=== PATIENT | female | born 2000 | race Caucasian/White ===

== ENCOUNTER 2022-11-07 15:08 | Outpatient (OUT) | payer BC, SELFPAY ==
[2022-11-08 05:11] LABS: Progesterone 16.2 ng/mL (.)
== END 2022-11-07 15:09 | disposition home or self-care (01) ==
LOC: LAB 15:08
PROVIDERS: PCP Family Medicine; Visit Provider Obstetrics & Gynecology
DX: N97.9 Female infertility, unspecified (principal)
CPT/HCPCS: 36415; 84144

== ENCOUNTER 2022-12-08 20:58 | Outpatient (REF) | payer BC, SELFPAY ==
[2022-12-12 14:09] LABS: Age Gdln ACOG Testing Note (.); IGP, rfx Aptima HPV ASCU Note (.)
== END 2022-12-08 20:59 | disposition home or self-care (01) ==
LOC: LAB 20:58
PROVIDERS: PCP Family Medicine; Visit Provider Physician Assistant
DX: N97.9 Female infertility, unspecified (principal)
CPT/HCPCS: G0145

== ENCOUNTER 2022-12-20 08:05 | Outpatient (OUT) | payer BC, SELFPAY ==
[2022-12-20 08:28] LABS: Basophils Absolute Auto 0.1 10^3/uL (0.0-0.1); Eosinophils Absolute Auto 0.2 10^3/uL (0.0-0.7); Eosinophils Percent Auto 3.9 % (0.9-7.0); Hematocrit 39.7 % (36.0-48.0); Hemoglobin 13.2 g/dL (12.0-16.0); Lymphocytes Absolute Auto 1.7 10^3/uL (1.2-3.8); Lymphocytes Percent Auto 35.6 % (20.5-60.0); Mean Corpuscular HGB Conc 33.2 g/dL (29.9-35.2); Mean Corpuscular Hemoglobin 31.6 pg (26.7-34.0); Mean Platelet Volume 9.6 fL (9.5-13.5); Monocytes Absolute Auto 0.4 10^3/uL (0.3-0.8); Monocytes Percent Auto 8.8 % (1.7-12.0); Neutrophils Absolute Auto 2.5 10^3/uL (1.4-6.5); Neutrophils Percent Auto 50.7 % (43.0-75.0); Platelet Count 268 10^3/uL (150-450); Red Blood Count 4.18 10^6/uL (4.20-5.40); Red Cell Distribution Width 12.6 % (11.0-15.0); White Blood Count 4.9 10^3/uL (4.0-11.0)
[2022-12-20 09:06] LABS: Alanine Aminotransferase 17 U/L (14-59); Albumin Globulin Ratio 1.2; Albumin Level 3.8 g/dL (3.4-5.0); Alkaline Phosphatase 75 U/L (46-116); Anion Gap 12.5; Aspartate Amino Transferase 11 U/L (15-37); BUN Creatinine Ratio 17.9; Bilirubin Total 0.4 mg/dL (0.2-1.0); Calcium 8.5 mg/dL (8.5-10.1); Carbon Dioxide 27.1 mmol/L (21.0-32.0); Chloride 104 mmol/L (98-107); Estimated GFR (African America >60 (>=60); Estimated GFR (Non-African Ame >60 (>=60); Free T3 2.31 pg/mL (2.18-3.98); Globulin 3.3 g/dL; Glucose 81 mg/dL (74-106); Potassium 3.6 mmol/L (3.5-5.1); Sodium 140 mmol/L (136-145); Thyroid Stimulating Hormone 2.023 uIU/mL (0.358-3.740); Total Protein 7.1 g/dL (6.4-8.2)
[2022-12-20 09:27] LABS: Estimated Average Glucose 80 mg/dL; Glycohemoglobin A1C 4.4 % (4.5-6.2)
[2022-12-22 11:07] LABS: Insulin 8.5 uIU/mL (2.6-24.9)
== END 2022-12-20 08:06 | disposition home or self-care (01) ==
LOC: LAB 08:16
PROVIDERS: PCP Family Medicine; Visit Provider Family Medicine
DX: L65.9 Nonscarring hair loss, unspecified (principal); R73.09 Other abnormal glucose; D64.9 Anemia, unspecified; E55.9 Vitamin D deficiency, unspecified
CPT/HCPCS: 36415; 80053; 82306; 83036; 83525; 83540; 84436; 84443; 84481; 85025

== ENCOUNTER 2023-02-26 13:48 | Outpatient (OUT) | payer BC, SELFPAY ==
[2023-02-27 12:09] LABS: Progesterone 11.9 ng/mL (.)
== END 2023-02-26 13:49 | disposition home or self-care (01) ==
LOC: LAB 13:48
PROVIDERS: PCP Family Medicine; Visit Provider Obstetrics & Gynecology
DX: N97.9 Female infertility, unspecified (principal)
CPT/HCPCS: 36415; 84144

== ENCOUNTER 2023-04-15 14:02 | Outpatient (OUT) | payer BC, SELFPAY ==
--- OUTSIDE RECORDS SUMMARY | 2023-04-15 14:06 | XMS_ITS | CCD ---
Author Name Unknown Address [address] [place] [address] Organization [facility] Care Team Providers Care [employer] Consultant Name Role Phone JASON ., DR BLACKWELL Admitting Unavailable JASON ., DR BLACKWELL Attending Unavailable HOY ., DR HAY Primary Care Unavailable JASON ., DR BLACKWELL Admitting Unavailable JASON ., DR BLACKWELL Attending Unavailable HOY ., DR HAY Primary Care Unavailable JASON ., DR BLACKWELL Consulting Unavailable JASON ., DR BLACKWELL Admitting Unavailable JASON ., DR BLACKWELL Attending Unavailable HOY ., DR HAY Primary Care Unavailable JASON ., DR BLACKWELL Consulting Unavailable AGUBOSIM, NIKKY Consulting Unavailable LU ALY Consulting Unavailable JASON ., DR BLACKWELL Admitting Unavailable JASON ., DR BLACKWELL Attending Unavailable HOY ., DR HAY Primary Care Unavailable JASON ., DR BLACKWELL Consulting Unavailable JASON ., DR BLACKWELL Admitting Unavailable JASON ., DR BLACKWELL Attending Unavailable JAIR ., DR HAY Primary Care Unavailable AHSAN, DR NIKO Selby Consulting Unavailable JASON ., DR BLACKWELL Consulting Unavailable DOMENICRACHEL REED Admitting Unavailable RACHEL SHETH Attending Unavailable JAIR ., DR HAY Primary Care Unavailable RACHEL SHETH Consulting Unavailable JASON ., DR BLACKWELL Admitting Unavailable JASON ., DR BLACKWELL Attending Unavailable CHIY ., DR HAY Primary Care Unavailable AHSAN, DR NIKO Selby Consulting Unavailable ROSALVA WELSH Attending Unavailable Problems Active Problems Problem Classification Problem Date Documented Da te Episodic/Chronic Administrative/social admission (4 sources) Encounter for pre-employment examination; Translations: [ENCOUNTER FOR PRE-EMPLOYMENT EXAM] Onset: 07-15-2022 Episodic Menstrual disorders (2 sources) Excessive and frequent menstruation with irregular cycle; Translations: [Dysmenorrhea, unspecified] Onset: 11-04-2021 Chronic Other female genital disorders (1 source) Abnormal uterine and vaginal bleeding, unspecified; Translations: [ABNORMAL UTERINE VAGINAL BLEED UNS] Onset: 11-04-2021 Chronic Unclassified (1 source) CONTACT W/AND (SUSP) EXPOS COVID-19; Translations: [CONTACT W/AND (SUSP) EXPOS COVID-19] Onset: 10-29-2021 Past or Other Problems Problem Classification Problem Date Documented Da te Episodic/Chronic Abdominal pain (4 sources) Pelvic and perineal pain; Translations: [PELVIC AND PERINEAL PAIN] Onset: 10-25-2021 Episodic Other female genital disorders (4 sources) Other specified conditions associated with female genital organs and menstrual cycle; Translations: [OTH SPEC COND FE GEN ORG MENST CYCL] Onset: 02-04-2022 Episodic Results Test Name Value Interpretation Reference Range Facil ity QUANTIFERON TB GOLD PLUSon 0 07-17-2022 QuantiFERON Criteria Comment Normal [facility] Comment on above: Result Comment: Yon tiFERON-TB Gold Plus is a qualitative indirect test for M tuberculosis infection (including disease) and is intended for use in conjunction with risk assessment, radiography, and other medical and diagnostic evaluations. The QuantiFERON-TB Gold Plus result is determined by subtracting the Nil value from either TB antigen (Ag) value. The Mitogen tube serves as a control for the test. Performed By: #### Q NTTB #### [facility] [address] [place] [address] Dr. Elie Milan QuantiFERON Incubation Incubation performed. Normal [facility] Comment on above: Performed By: #### Q NTTB #### [facility] [address] [place] [address] Dr. Elie Milan QuantiFERON Mitogen Value >10.00 Normal [facility] Comment on above: Performed By: #### Q NTTB #### [facility] [address] [place] [address] Dr. Elie Milan QuantiFERON Nil Value 0.05 IU/mL Normal [facility] Comment on above: Performed By: #### Q NTTB #### [facility] [address] [address] [address] Elie Milan QuantiFERON TB1 Ag Value 0.06 IU/mL Normal [facility] Comment on above: Performed By: #### Q NTTB #### [facility] [address] [address] [address] Elie Milan QuantiFERON TB2 Ag Value 0.07 IU/mL Normal [facility] Comment on above: Performed By: #### Q NTTB #### [facility] [address] [address] [address] Elie Milan QuantiFERON-TB Gold Plus Negative Normal Negative [facility] Comment on above: Result Comment: No r esponse to M tuberculosis antigens detected. Infection with M tuberculosis is unlikely, but high risk individuals should be considered for additional testing (ATS/IDSA/CDC Clinical Practice Guidelines, 2017). The reference range is an Antigen minus Nil result of <0.35 IU/mL. Chemiluminescence immunoassay methodology Performed By: #### Q NTTB #### [facility] [address] [place] [address] Dr. Elie Milan HEPATITIS B SURFACE ANTIBODY , QUANTon 07-16-2022 Hepatitis B Surf AB Quant <3.1 Critically low Immunity>9.9 [facility] Comment on above: Result Comment: Stat us of Immunity Anti-HBs Level Inconsistent with Immunity 0.0 - 9.9 Consistent with Immunity >9.9 Performed By: #### H EPBSRF #### [facility] [address] [place] [address] Dr. Elie Milan MMR IMMUNITYon 07-16-2022 Mumps Abs, IgG 261.0 AU/mL Normal Immune >10.9 [facility] Comment on above: Result Comment: Nega tive <9.0 Equivocal 9.0 - 10.9 Positive >10.9 A positive result generally indicates past exposure to Mumps virus or previous vaccination. Performed By: #### M MRIMMU #### [facility] [address] [place] [address] Dr. Elie Milan Rubella Antibodies, IgG 3.97 index Normal Immune >0.[address] [facility] Comment on above: Result Comment: Non- immune <0.90 Equivocal 0.90 - 0.99 Immune >0.99 Performed By: #### M MRIMMU #### [facility] [address] [place] [address] [address] [address] Elie Milan Rubeola Ab, IgG >300.0 Normal Immune >16.4 [facility] Comment on above: Result Comment: Nega tive <13.5 Equivocal 13.5 - 16.4 Positive >16.4 Presence of antibodies to Rubeola is presumptive evidence of immunity except when acute infection is suspected. Performed By: #### M MRIMMU #### [facility] [address] [address] [address] Elie Milan VARICELLA IGG ABon 3 Varicella Zoster IgG 1549 index Normal Immune >165 [facility] Comment on above: Result Comment: Nega tive <135 Equivocal 135 - 165 Positive >165 A positive result generally indicates exposure to the pathogen or administration of specific immunoglobulins, but it is not indication of active infection or stage of disease. Performed By: #### V ARCEL #### [facility] [address] [place], [place] [id number] Dr. Elie Milan US PELVIS AND TRANSVAGon US PELVIS AND TRANSVAG EXAMINATION: US PELVIS AND TRANSVAG HISTORY: Pelvic and perineal pain COMPARISON: 10/08/2021 FINDINGS: Transabdominal and transvaginal images The uterus is normal in size, contour and echotexture measuring 7.7 x 2.8 x 4.5 cm. Anteverted, anteflexed. No focal myometrial mass The endometrium measures 5 mm, normal The right ovary is normal in appearance measuring 2.8 x 1.6 x 2.1 cm. Normal color Doppler flow The left ovary is normal in appearance measuring 3.0 x 1.8 x 3.3 cm. Normal color Doppler flow No free fluid IMPRESSION: Normal examination. Electronically authenticated by: NIKO FOREMAN Date: 2022-02-04 20:13 Normal [facility] HCG-BETA SUBUNIT QUANTon hCG,Beta Subunit,Qnt,Serum <1 Normal [facility] Comment on above: Result Comment: Fema le (Non-) 0 - 5 (Postmenopausal) 0 - 8 . Female () Weeks of Gestation 3 6 - 71 4 10 - 750 5 434 - 8410 6 951 - 33059 7 9438 -[phone] 8 99735 -563118 9 77772 -005566 10 50023 -635222 12 60120 -799807 14 42645 - 89075 15 12224 - 36289 16 2522 - 77106 17 5549 - 48650 18 1845 - 47911 Tanesha ECLIA methodology Performed By: #### H CGSUB #### [facility] [address] [place] [address] Dr. Elie Milan CBC AUTO DIFFon 10-23-2021 BASO # 0.1 103/ul Normal 0.0-0.1 [facility] Comment on above: Performed By: #### C BC #### [facility] [address] [place] [address] Dr. Elie Milan Basophils/100 WBC (Bld) 1.1 % Normal 0.2-2.0 [facility] Comment on above: Performed By: #### C BC #### [facility] [address] [place] [address] Dr. Elie Milan EO # 0.3 103/ul Normal 0.0-0.7 [facility] Comment on above: Performed By: #### C BC #### [facility] [address] [place] [address] Dr. Elie Milan Eosinophils/100 WBC (Bld) 4.6 % Normal 0.9-7.0 [facility] Comment on above: Performed By: #### C BC #### [facility] [address] [place] [address] Dr. Elie Milan Erythrocyte distribution width (RBC) [Ratio] 11.9 % Normal 11.0-15.0 [facility] Comment on above: Performed By: #### C BC #### [facility] [address] [place] [address] Dr. Elie Milan Hematocrit (Bld) [Volume fraction] 41.0 % Normal 36.0-48.0 [facility] Comment on above: Performed By: #### C BC #### [facility] [address] [address] [address] Elie Milan Hemoglobin (Bld) [Mass/Vol] 14.0 g/dL Normal 12.0-16.0 [facility] Comment on above: Performed By: #### C BC #### [facility] [address] [address] [address] Elie Milan IG # 0.02 10e3/ul Normal 0.00-0.03 [facility] Comment on above: Performed By: #### C BC #### [facility] [address] [place] [address] Dr. Elie Milan IG % 0.3 % Normal 0.0-0.5 [facility] Comment on above: Performed By: #### C BC #### [facility] [address] [place] [address] Dr. Elie Milan LYMPH # 1.3 103/ul Normal 1.2-3.8 [facility] Comment on above: Performed By: #### C BC #### [facility] [address] [place] [address] Dr. Elie Milan Lymphocytes/100 WBC (Bld) 17.9 % Critically low 20.5-60.0 [facility] Comment on above: Performed By: #### C BC #### [facility] [address] [place] [address] Dr. Elie Milan MANUAL DIFF REQ NO Normal [facility] Comment on above: Performed By: #### C BC #### [facility] [address] [place] [address] Dr. Elie Milan MCH (RBC) [Entitic mass] 30.9 pg Normal 26.7-34.0 [facility] Comment on above: Performed By: #### C BC #### [facility] [address] [place] [address] Dr. Elie Milan MCHC (RBC) [Mass/Vol] 34.1 g/dL Normal 29.9-35.2 [facility] Comment on above: Performed By: #### C BC #### [facility] [address] [address] [address] Elie Milan MCV (RBC) [Entitic vol] 90.5 fL Normal 81.0-99.0 [facility] Comment on above: Performed By: #### C BC #### [facility] [address] [address] [address] Elie Milan MONO # 0.5 103/ul Normal 0.3-0.8 [facility] Comment on above: Performed By: #### C BC #### [facility] [address] [address] [address] Elie Milan Monocytes/100 WBC (Bld) 7.3 % Normal 1.7-12.0 [facility] Comment on above: Performed By: #### C BC #### [facility] [address] [place] [address] Dr. Elie Milan NEUT # 4.8 103/ul Normal 1.4-6.5 [facility] Comment on above: Performed By: #### C BC #### [facility] [address] [place] [address] Dr. Elie Milan Neutrophils/100 WBC (Bld) 68.8 % Normal 43.0-75.0 [facility] Comment on above: Performed By: #### C BC #### [facility] [address] [place] [address] Dr. Elie Milan Platelet mean volume (Bld) [Entitic vol] 9.9 fL Normal 9.5-13.5 [facility] Comment on above: Performed By: #### C BC #### [facility] [address] [place] [address] Dr. Elie Milan PLT 223 103/ul Normal 150-[address] [facility] Comment on above: Performed By: #### C BC #### [facility] [address] [place] [address] Dr. Elie Milan RBC 4.53 106/ul Normal 4.20-5.[address] [facility] Comment on above: Performed By: #### C BC #### [facility] [address] [place] [address] [address] [address] Elie Milan WBC 7.0 103/ul Normal 4.0-11.0 [facility] Comment on above: Performed By: #### C BC #### [facility] [address] [place] [address] [address] [address] Elie Milan HCG-BETA SUBUNIT QUANTon hCG,Beta Subunit,Qnt,Serum <1 Normal [facility] Comment on above: Result Comment: Fema le (Non-) 0 - 5 (Postmenopausal) 0 - 8 . Female () Weeks of Gestation 3 6 - 71 4 10 - 750 5 052 - 9239 6 064 - 29416 7 8576 -982064 8 60767 -552233 9 92309 -332400 10 65015 -270634 12 98700 -316610 14 78325 - 04107 15 80292 - 08603 16 3858 - 35653 17 4249 - 26357 18 7685 - 67271 Tanesha ECLIA methodology Performed By: #### H CGSUB #### [facility] [address] [place] [address] [address] [address] Elie Milan US PELVIS TRANSVAGon 022 US PELVIS TRANSVAG EXAMINATION: US PELV IS TRANSVAG HISTORY: Pelvic and perineal pain COMPARISON: No relevant comparison available. FINDINGS: The uterus is normal in size, contour and echotexture measuring 7.8 x 3.8 x 3.4 cm. No focal myometrial mass. The endometrium measures 8.2 mm, normal The right ovary measures 3.6 x 2.4 x 2.6 cm. Area of anechoic echogenicity measuring 1.9 x 1.2 x 1.2 cm with a ring of hypervascularity. The left ovary is normal in appearance measuring 3.0 x 1.8 x 2.2 cm. Normal color and Doppler flow. These findings were discussed with Dr. Welsh at the time of the dictation IMPRESSION: 1.9 cm cystic lesion with peripheral hypervascularity in the right ovary. Correlation with quantitative beta hCG is required to exclude an ectopic Electronically authenticated by: NIKO FOREMAN Date: 2021-10-08 16:31 Normal [facility] CNOVSPon 05-17-2019 CNOVSP Visit (SP) Office ([facility]) LOYDA GIBSON ([id number]) 2000 F Date Time Provider Department 05/17/19 10:45 AM FORD MORGAN) IFTIKHAR During your visit today, we recorded the following information about you: Temperature Pulse Respiration Blood pressure 98.2 degrees 86/minute 18/minute 121/71 Weight Height 56.8 kg 1.632 m Ford Morgan MD 05/17/2019 2:07 PM Signed PATIENT NAME: Loyda Gibson CLINIC NO.: [id number] ATTENDING PHYSICIAN: Ford Morgan MD DATE OF SERVICE: May 17, 2019 This document has been created with the use of voice recognition technology. It may contain inaccuracies, misspellings, inaccurate syntax or inappropriate word context that escaped review. Dear Dr. Ford Morgan MD [address] [place] [address] here is an update on a follow up visit on female Loyda Gibson at the clinic 05/17/2019 Diagnosis: ? Protein S def Treatment History: HPI: Loyda Gibson is a 19 year old year old female here for follow up. Doing well and denies any fevers and or chills. PAST MEDICAL HISTORY Diagnosis Date - Dysfunctional uterine bleeding - Menorrhagia with irregular cycle Social History Tobacco Use - Smoking status: Never Smoker - Smokeless tobacco: Never Used Substance Use Topics - Alcohol use: Never Frequency: Never - Drug use: Never FAMILY HISTORY Problem Relation Age of Onset - other (acute endometritis) Mother - Melanoma Paternal Grandmother - Heart disease Paternal Grandmother Past medical, social and family history reviewed without any changes. REVIEW OF SYSTEMS GENERAL: No weight loss, malaise or fevers. No night sweats. HEENT: Negative for headaches, No changes in hearing or vision, no nose bleeds or other nasal problems. RESPIRATORY: Negative for cough, wheezing and shortness of breath CARDIOVASCULAR: Negative for chest pain, leg swelling and palpitations GI: Negative for abdominal discomfort, blood in stools or black stools and change in bowel habits : Negative for dysuria, frequency and incontinence MUSCULOSKELETAL: Negative for joint pain or swelling, back pain, and muscle pain. SKIN: Negative for lesions, rash, and itching. HEMATOLOGY/LYMPHOLOGY Negative for prolonged bleeding, bruising easily, and swollen nodes. NEURO: Negative for numbness or tingling of hands/feet. No weakness. PHYSICAL EXAMINATION: BP 121/71 Pulse 86 Temp (Src) 98.2 (Temporal) Resp 18 Ht 5' 4.252 (1.63m) Wt 125 lb 3.2 oz (56.8kg) SpO2 97% BMI 21.32 kg/(m2). Wt 56.8 kg (125 lb 3.2 oz) BMI 21.32 kg/m2 Last 3 Encounter Wt Readings: Date: Wt: 05/17/2019 56.8 kg (125 lb 3.2 oz) 04/12/2019 56.7 kg (125 lb) General appearance:ECOG PERFORMANCE STATUS: 0- Fully active, able to carry on all pre-disease performance w/o restriction. Patient in NAD. Skin: Skin color, texture, turgor normal. No rashes or lesions. Eyes: Anicteric sclera. Pupils are equally round and reactive to light. Extraocular movements are intact. Lymph Nodes: No cervical, supraclavicular, axillary or inguinal adenopathy. Oropharynx: Lips, mucosa, and tongue normal. Back: No pain to percussion. Negative SLR test Lungs clear to auscultation, No wheezing or rhonchi Heart: RRR without murmur, gallop, or rubs. Abdomen soft, non-tender. No masses, organomegaly Extremities: No deformities. No edema Neuro: Gait and speech normal. Reflexes normal and symmetric. Muscular strength intact. Sensation grossly intact. Rectal: Deferred : Deferred LABS: No results found for: GLUC, K, NA, CHLOR, CO2, CREAT, BUN, ANION, CA, TPROT, ALB, TBILI, ALKPHOS, AST, ALT No results found for: WBC, RBC, HB, HCT, MCV, MCH, MCHC, RDWCV, PLT, MPV, MPV, NEUT, ABSNEUT, LYMPHP, ABSLYMPH, MONOP, ABSMONO, EOSINP, ABSEOSIN, BASOP, ABSBASO PATH: Imaging: Assessment and Plan: Loyda Gibson is a 19 year old year old female here for follow up. Patient does not have Protein S def. NO further work up at this time. Follow up with urology Thank you for the kind referral. If there are any questions and or concerns please do not hesitate to contact me at [phone]. 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 Follow-up and Disposition History Recorded Prescriptions as of 05/17/2019 Sig: NORGESTIMATE 0.25 MG-ETHINYL * Take 1 tablet by mouth once d* Problem List As Of Date: 05/17/2019 (None) Encounter Status:Closed by FORD MORGAN MD on 05/17/19 [facility] PROGRESSon 05-17-2019 PROGRESS HNO ID: [id number] Author: Ford Morgan Service: ? Author Type: Physician Type: Progress Notes Filed: 05/17/2019 2:07 PM Note Text: PATIENT NAME: Loyda Gibson [facility] NO.: [id number] ATTENDING PHYSICIAN: Ford Morgan MD DATE OF SERVICE: May 17, 2019 This document has been created with the use of voice recognition technology. It may contain inaccuracies, misspellings, inaccurate syntax or inappropriate word context that escaped review. Dear Dr. Ford Morgan MD [address] [place] [phone] here is an update on a follow up visit on female Loyda Gibson at the clinic 05/17/2019 Diagnosis: ? Protein S def Treatment History: HPI: Loyda Gibson is a 19 year old year old female here for follow up. Doing well and denies any fevers and or chills. PAST MEDICAL HISTORY Diagnosis Date - Dysfunctional uterine bleeding - Menorrhagia with irregular cycle Social History Tobacco Use - Smoking status: Never Smoker - Smokeless tobacco: Never Used Substance Use Topics - Alcohol use: Never Frequency: Never - Drug use: Never FAMILY HISTORY Problem Relation Age of Onset - other (acute endometritis) Mother - Melanoma Paternal Grandmother - Heart disease Paternal Grandmother Past medical, social and family history reviewed without any changes. REVIEW OF SYSTEMS GENERAL: No weight loss, malaise or fevers. No night sweats. HEENT: Negative for headaches, No changes in hearing or vision, no nose bleeds or other nasal problems. RESPIRATORY: Negative for cough, wheezing and shortness of breath CARDIOVASCULAR: Negative for chest pain, leg swelling and palpitations GI: Negative for abdominal discomfort, blood in stools or black stools and change in bowel habits : Negative for dysuria, frequency and incontinence MUSCULOSKELETAL: Negative for joint pain or swelling, back pain, and muscle pain. SKIN: Negative for lesions, rash, and itching. HEMATOLOGY/LYMPHOLOGY Negative for prolonged bleeding, bruising easily, and swollen nodes. NEURO: Negative for numbness or tingling of hands/feet. No weakness. PHYSICAL EXAMINATION: BP 121/71 Pulse 86 Temp (Src) 98.2 (Temporal) Resp 18 Ht 5' 4.252 (1.63m) Wt 125 lb 3.2 oz (56.8kg) SpO2 97% BMI 21.32 kg/(m2). Wt 56.8 kg (125 lb 3.2 oz) BMI 21.32 kg/m2 Last 3 Encounter Wt Readings: Date: Wt: 05/17/2019 56.8 kg (125 lb 3.2 oz) 04/12/2019 56.7 kg (125 lb) General appearance:ECOG PERFORMANCE STATUS: 0- Fully active, able to carry on all pre-disease performance w/o restriction. Patient in NAD. Skin: Skin color, texture, turgor normal. No rashes or lesions. Eyes: Anicteric sclera. Pupils are equally round and reactive to light. Extraocular movements are intact. Lymph Nodes: No cervical, supraclavicular, axillary or inguinal adenopathy. Oropharynx: Lips, mucosa, and tongue normal. Back: No pain to percussion. Negative SLR test Lungs clear to auscultation, No wheezing or rhonchi Heart: RRR without murmur, gallop, or rubs. Abdomen soft, non-tender. No masses, organomegaly Extremities: No deformities. No edema Neuro: Gait and speech normal. Reflexes normal and symmetric. Muscular strength intact. Sensation grossly intact. Rectal: Deferred : Deferred LABS: No results found for: GLUC, K, NA, CHLOR, CO2, CREAT, BUN, ANION, CA, TPROT, ALB, TBILI, ALKPHOS, AST, ALT No results found for: WBC, RBC, HB, HCT, MCV, MCH, MCHC, RDWCV, PLT, MPV, MPV, NEUT, ABSNEUT, LYMPHP, ABSLYMPH, MONOP, ABSMONO, EOSINP, ABSEOSIN, BASOP, ABSBASO PATH: Imaging: Assessment and Plan: Loyda Gibson is a 19 year old year old female here for follow up. Patient does not have Protein S def. NO further work up at this time. Follow up with urology Thank you for the kind referral. If there are any questions and or concerns please do not hesitate to contact me at [phone]. Ford Morgan MD Hematology/Medical Oncology [facility] CC: Shaw Jorgensen Normal [facility] APTTon 05-10-2019 aPTT Coag (Bld) [Time] 27.1 s Normal 23.0-32.4 [facility] Comment on above: Result Comment: Unfr actionated Heparin Therapeutic Ranges: Standard Heparin Nomogram: 53 to 78 seconds (anti-Xa level of 0.3 to 0.7 U/ml) Low Dose/ACS Nomogram: 49 to 67 seconds (anti-Xa level of 0.2 to 0.5 U/ml) Stroke Treatment Nomogram: 49 to 67 seconds (anti-Xa level of 0.2 to 0.5 U/ml) Note: The APTT therapeutic range has been determined for the current lot of laboratory APTT reagent in use throughout the [facility]. Performed By: #### P RSCLT, PTT, PT, PRCFUN #### [facility] [address] [place], [place] [address] Protein C Functionalon 05-10 Protein [Mass/Vol] 89 % Normal 76-[address] [facility] Comment on above: Performed By: #### P RSCLT, PTT, PT, PRCFUN #### [facility] [address], [place] [id number] Protein S Clottableon 2019 Protein S Clottable 58 % Low 59-131 [facility] Comment on above: Result Comment: Resu lt rechecked. Decreased clottable protein S. This could be a variant of normal, but could also be seen with protein S deficiency, if acquired causes of decreased protein S can be excluded. Low levels of protein S can also be observed in liver disease, , acute thrombosis, infections, DIC, uremia, postoperatively, with acute phase response and HIV infection. Spurious causes of decreased protein S clottable activity include elevated factor VIII levels, activated protein C resistance due to Factor V Leiden. Recommend repeating clottable protein S and ordering total/free protein S antigen to distinguish a variant of normal from a protein S deficiency. It may also be helpful to order factor VIII and APC-resistance assays. Family studies may also be helpful to establish a diagnosis of protein S deficiency. Performed By: #### P RSCLT, PTT, PT, PRCFUN #### [facility] [address] [place], [place] [address] Protimeon 05-10-2019 PT Coag (PPP) [Time] 10.2 s Normal 9.7-13.0 [facility] Comment on above: Performed By: #### P RSCLT, PTT, PT, PRCFUN #### [facility] [address] [place], [place] [address] PT Coag (PPP) [Time] 0.9 s Normal 0.9-1.3 [facility] Comment on above: Result Comment: Maria D min K Antagonist (VKA) Therapeutic Range: INR 2 to 3 (Target INR of 2.5) Note: For patients treated with VKA drugs, such as warfarin, the [place] [employer] 2012 Guideline recommends a therapeutic INR range of 2 to 3 (target INR of 2.5). This recommendation includes high-risk patients with antiphospholipid syndrome with previous arterial or venous thromboembolism, current-generation mechanical or bioprosthetic aortic heart valve replacement. Note: Patients with mechanical aortic valve replacement and additional risk factors for thromboembolic events (atrial fibrillation, previous thromboembolism, LV dysfunction, hypercoagulable conditions) or an older generation mechanical AVR (i.e., ball in-Cage) or any mechanical MVR should have a INR therapeutic range of 2.5 to 3.5 (target INR of 3). John GH, et al. Chest 2012, 141:7S-47S Deo RA, et al. [facility] 2017, 70: 252-289 Performed By: #### P RSCLT, PTT, PT, PRCFUN #### [facility] [address] [place], [place] [address] CNOVSPon 04-12-2019 CNOVSP Visit (SP) Office ([place]) LOYDA GIBSON ([id number]) 2000 F Date Time Provider Department 04/12/19 4:15 PM FORD MORGAN) HEMASA During your visit today, we recorded the following information about you: Temperature Pulse Respiration Blood pressure 97.8 degrees 90/minute 18/minute 119/74 Weight Height 56.7 kg 1.632 m Ford Morgan MD 04/12/2019 4:48 PM Signed PATIENT NAME: Loyda Gibson CLINIC NO.: [id number] ATTENDING PHYSICIAN: Ford Morgan MD DATE OF SERVICE: April 12, 2019 This document has been created with the use of voice recognition technology. It may contain inaccuracies, misspellings, inaccurate syntax or inappropriate word context that escaped review. Dear Dr. Rosalva Welsh, DO thank you for referring Miss Loyda Gibson for an opinion regarding diagnosis of protein S deficiency. CHIEF COMPLAINT: I have abnormal blood levels HPI: Loyda Gibson is a 19 year old year old female with no significant past medical history whose had irregular uterine bleeding. Patient is being followed closely by Dr. Welsh. Patient had undergone additional workup including a hypercoagulable workup which demonstrated no evidence of factor V Leiden mutation. Protein C activity is within normal limits. Beta-2 glycoprotein's within normal limits. Normal anti-cardiolipin antibodies and no evidence of a lupus inhibitor. Patient's protein S levels total at 48% free at 51% were noted. Patient denies any previous history of pregnancies. Examination denies any history of thrombosis. Patient denies any family history of thrombosis. Her grandmother was diagnosed with a pulmonary embolism while hospitalized in her 60s. Otherwise no other family members with thrombosis. Patient also denies any history of excessive bleeding. Current Outpatient Medications Medication Sig - norgestimate 0.25 mg-ethinyl estradiol 35 mcg (SPRINTEC) 0.25-35 mg-mcg per tablet Take 1 tablet by mouth once daily. No current facility-administered medications for this visit. ALLERGIES No Known Allergies PAST MEDICAL HISTORY Diagnosis Date - Dysfunctional uterine bleeding - Menorrhagia with irregular cycle PAST SURGICAL HISTORY Procedure Laterality Date - ORAL SURGERY PROCEDURE 01/26/2016 wisdom teeth - SURGERY ADD 01/05/2015 tooth pick removal - TONSILLECTOMY HX 03/27/2010 FAMILY HISTORY Problem Relation Age of Onset - other (acute endometritis) Mother - Melanoma Paternal Grandmother - Heart disease Paternal Grandmother Social History Tobacco Use - Smoking status: Never Smoker - Smokeless tobacco: Never Used Substance Use Topics - Alcohol use: Never Frequency: Never - Drug use: Never REVIEW OF SYSTEMS GENERAL: No weight loss, malaise or fevers. No night sweats. HEENT: Negative for headaches, No changes in hearing or vision, no nose bleeds or other nasal problems. RESPIRATORY: Negative for cough, wheezing and shortness of breath CARDIOVASCULAR: Negative for chest pain, leg swelling and palpitations GI: Negative for abdominal discomfort, blood in stools or black stools and change in bowel habits : Negative for dysuria, frequency and incontinence MUSCULOSKELETAL: Negative for joint pain or swelling, back pain, and muscle pain. SKIN: Negative for lesions, rash, and itching. HEMATOLOGY/LYMPHOLOGY Negative for prolonged bleeding, bruising easily, and swollen nodes. NEURO: Negative for numbness or tingling of hands/feet. No weakness. PHYSICAL EXAMINATION: BP 119/74 Pulse 90 Temp 36.6 ?C (97.8 ?F) (Oral) Resp 18 Ht 163.2 cm (5' 4.25 ) Wt 56.7 kg (125 lb) SpO2 98% BMI 21.29 kg/m? Wt 56.7 kg (125 lb) BMI 21.29 kg/m2 Last 3 Encounter Wt Readings: Date: Wt: 04/12/2019 56.7 kg (125 lb) General appearance:ECOG PERFORMANCE STATUS: 0- Fully active, able to carry on all pre-disease performance w/o restriction. Patient in NAD. Skin: Skin color, texture, turgor normal. No rashes or lesions. Eyes: Anicteric sclera. Pupils are equally round and reactive to light. Extraocular movements are intact. Breast: No palpable breast masses. No nipple change or discharge. Lymph Nodes: No cervical, supraclavicular, axillary or inguinal adenopathy. Oropharynx: Lips, mucosa, and tongue normal. Back: No pain to percussion. Negative SLR test Lungs clear to auscultation, No wheezing or rhonchi Heart: RRR without murmur, gallop, or rubs. Abdomen soft, non-tender. No masses, organomegaly Extremities: No deformities. No edema Neuro: Gait and speech normal. Reflexes normal and symmetric. Muscular strength intact. Sensation grossly intact. Rectal: Deferred : Deferred LABS: No results found for: GLUC, K, NA, CHLOR, CO2, CREAT, BUN, ANION, CA, TPROT, ALB, TBILI, ALKPHOS, AST, ALT No results found for: WBC, RBC, HB, HCT, MCV, MCH, MCHC, RDWCV, PLT, MPV, MPV, NEUT, ABSNEUT, LYMPHP, ABSLYMPH, MONOP, ABSMONO, EOSINP, ABSEOSIN, BASOP, ABSBASO PATH: IMAGING: ASSESSMENT AND PLAN: Loyda Gibson is a 19 year old year old female with dysfunctional uterine bleeding. Additional workup was performed which demonstrated slightly low total and free protein S. She does not have any previous history of thrombosis. At this point I doubt if the patient has evidence of protein S deficiency. Reduction in the level certainly could be as a result of her dysfunctional uterine bleeding. In the setting where patients do not have a strong family history of thrombosis generally one would expect much lower levels of protein S to be classified as deficient. Patient has not had any previous history of pregnancies and is currently not . certainly also has an impact on protein S levels. At this point I'll see the patient back in 1 month. We'll repeat her protein S levels. No change in therapy at this point is required. Dear Dr. Rosalva Welsh DO, thank you for allowing me to participate [facility], if there are any questions or concerns please do not hesitate to contact me at the number below. Ford Morgan M.D. 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] Order(s):ACTIVATED PTT [SQPTT] Order #: [id number] FUTURE PROTHROMBIN TIME/PT [SQPT] Order #: [id number] FUTURE TUBES - DRAW EXTRA [SQXTUBE] Order #: [id number] FUTURE PROTEIN C FUNCT [SQPRCFUN] Order #: [id number] FUTURE PROTEIN S CLOTTABLE [SQPRSCLT] Order #: [id number] FUTURE Follow-up and Disposition History Recorded Prescriptions as of 04/12/2019 Sig: NORGESTIMATE 0.25 MG-ETHINYL * Take 1 tablet by mouth once d* Problem List As Of Date: 04/12/2019 (None) Encounter Status:Closed by FORD MORGAN MD on 04/12/19 [facility] PROGRESSon 04-12-2019 PROGRESS HNO ID: [id number] Author: Ford Morel) Cathy Service: ? Author Type: Physician Type: Progress Notes Filed: 04/12/2019 4:48 PM Note Text: PATIENT NAME: Loyda Gibson [facility] NO.: [id number] ATTENDING PHYSICIAN: Ford Morgan MD DATE OF SERVICE: April 12, 2019 This document has been created with the use of voice recognition technology. It may contain inaccuracies, misspellings, inaccurate syntax or inappropriate word context that escaped review. Dear Dr. Rosalva Welsh, DO thank you for referring Miss Loyda Gibson for an opinion regarding diagnosis of protein S deficiency. CHIEF COMPLAINT: I have abnormal blood levels HPI: Loyda Gibson is a 19 year old year old female with no significant past medical history whose had irregular uterine bleeding. Patient is being followed closely by Dr. Welsh. Patient had undergone additional workup including a hypercoagulable workup which demonstrated no evidence of factor V Leiden mutation. Protein C activity is within normal limits. Beta-2 glycoprotein's within normal limits. Normal anti-cardiolipin antibodies and no evidence of a lupus inhibitor. Patient's protein S levels total at 48% free at 51% were noted. Patient denies any previous history of pregnancies. Examination denies any history of thrombosis. Patient denies any family history of thrombosis. Her grandmother was diagnosed with a pulmonary embolism while hospitalized in her 60s. Otherwise no other family members with thrombosis. Patient also denies any history of excessive bleeding. Current Outpatient Medications Medication Sig - norgestimate 0.25 mg-ethinyl estradiol 35 mcg (SPRINTEC) 0.25-35 mg-mcg per tablet Take 1 tablet by mouth once daily. No current facility-administered medications for this visit. ALLERGIES No Known Allergies PAST MEDICAL HISTORY Diagnosis Date - Dysfunctional uterine bleeding - Menorrhagia with irregular cycle PAST SURGICAL HISTORY Procedure Laterality Date - ORAL SURGERY PROCEDURE 01/26/2016 wisdom teeth - SURGERY ADD 01/05/2015 tooth pick removal - TONSILLECTOMY HX 03/27/2010 FAMILY HISTORY Problem Relation Age of Onset - other (acute endometritis) Mother - Melanoma Paternal Grandmother - Heart disease Paternal Grandmother Social History Tobacco Use - Smoking status: Never Smoker - Smokeless tobacco: Never Used Substance Use Topics - Alcohol use: Never Frequency: Never - Drug use: Never REVIEW OF SYSTEMS GENERAL: No weight loss, malaise or fevers. No night sweats. HEENT: Negative for headaches, No changes in hearing or vision, no nose bleeds or other nasal problems. RESPIRATORY: Negative for cough, wheezing and shortness of breath CARDIOVASCULAR: Negative for chest pain, leg swelling and palpitations GI: Negative for abdominal discomfort, blood in stools or black stools and change in bowel habits : Negative for dysuria, frequency and incontinence MUSCULOSKELETAL: Negative for joint pain or swelling, back pain, and muscle pain. SKIN: Negative for lesions, rash, and itching. HEMATOLOGY/LYMPHOLOGY Negative for prolonged bleeding, bruising easily, and swollen nodes. NEURO: Negative for numbness or tingling of hands/feet. No weakness. PHYSICAL EXAMINATION: BP 119/74 Pulse 90 Temp 36.6 ?C (97.8 ?F) (Oral) Resp 18 Ht 163.2 cm (5' 4.25 ) Wt 56.7 kg (125 lb) SpO2 98% BMI 21.29 kg/m? Wt 56.7 kg (125 lb) BMI 21.29 kg/m2 Last 3 Encounter Wt Readings: Date: Wt: 04/12/2019 56.7 kg (125 lb) General appearance:ECOG PERFORMANCE STATUS: 0- Fully active, able to carry on all pre-disease performance w/o restriction. Patient in NAD. Skin: Skin color, texture, turgor normal. No rashes or lesions. Eyes: Anicteric sclera. Pupils are equally round and reactive to light. Extraocular movements are intact. Breast: No palpable breast masses. No nipple change or discharge. Lymph Nodes: No cervical, supraclavicular, axillary or inguinal adenopathy. Oropharynx: Lips, mucosa, and tongue normal. Back: No pain to percussion. Negative SLR test Lungs clear to auscultation, No wheezing or rhonchi Heart: RRR without murmur, gallop, or rubs. Abdomen soft, non-tender. No masses, organomegaly Extremities: No deformities. No edema Neuro: Gait and speech normal. Reflexes normal and symmetric. Muscular strength intact. Sensation grossly intact. Rectal: Deferred : Deferred LABS: No results found for: GLUC, K, NA, CHLOR, CO2, CREAT, BUN, ANION, CA, TPROT, ALB, TBILI, ALKPHOS, AST, ALT No results found for: WBC, RBC, HB, HCT, MCV, MCH, MCHC, RDWCV, PLT, MPV, MPV, NEUT, ABSNEUT, LYMPHP, ABSLYMPH, MONOP, ABSMONO, EOSINP, ABSEOSIN, BASOP, ABSBASO PATH: IMAGING: ASSESSMENT AND PLAN: Loyda Gibson is a 19 year old year old female with dysfunctional uterine bleeding. Additional workup was performed which demonstrated slightly low total and free protein S. She does not have any previous history of thrombosis. At this point I doubt if the patient has evidence of protein S deficiency. Reduction in the level certainly could be as a result of her dysfunctional uterine bleeding. In the setting where patients do not have a strong family history of thrombosis generally one would expect much lower levels of protein S to be classified as deficient. Patient has not had any previous history of pregnancies and is currently not . certainly also has an impact on protein S levels. At this point I'll see the patient back in 1 month. We'll repeat her protein S levels. No change in therapy at this point is required. Dear Dr. Rosalva Welsh DO, thank you for allowing me to participate in Miss Loyda Gibson care, if there are any questions or concerns please do not hesitate to contact me at the number below. Ford Morgan M.D. Hematology/Medical Oncology [facility] [place] [address] [phone] CC: Normal [facility] Encounters Encounter Date Encounter Type Care Provider Facility Start: 04-14-2023 End: 04-14-2023 ambulatory ROSALVA WELSH Not Available Start: 07-15-2022 End: 07-16-2022 ambulatory RACHEL SHETH Facility:[facility] Start: 02-04-2022 End: 02-05-[address] ROSALVA WELSH . Facility:[facility] Start: 10-29-2021 Encounter for prepro cedural laboratory examination DR ROSALVA WELSH . [facility] Start: 10-25-2021 End: 10-25-[address] ROSALVA WELSH . Facility:[facility] Start: 10-23-2021 End: 10-24-[address] ROSALVA WELSH . Facility:[facility] Start: 10-23-2021 End: 10-24-2021 Encounter for preprocedural laboratory examination DR ROSALVA WELSH . Facility:[facility] Start: 10-22-2021 Encounter for other preprocedural examination DR ROSALVA WELSH . [facility] Start: 10-17-2021 End: 10-18-[address] ROSALVA WELSH . Facility:[facility] Start: 10-17-2021 End: 10-18-2021 Encounter for other preprocedural examination DR ROSALVA WELSH . Facility:[facility] Start: 10-09-2021 End: 10-10-[address] ROSALVA WELSH . Facility:[facility] Start: 10-08-2021 End: 10-09-[address] ROSALVA WELSH . Facility: Payers Date Payer Category Payer Unknown [id number] 2000 Unknown [id number] 2.16.84 [id number] 2000 Unknown [id number] 2.16.84 [id number] 1999 Unknown [id number] 2.16.84 [id number] 1999 Unknown [id number] 2.16.84 [id number] 1999 Unknown [id number] 2.16.84 [id number] 1999 Unknown [id number] 2.16.84 [id number] 1999 Unknown [id number] 2.16.84 [id number] 1960 Self-pay 1960 Unknown [id number] Unknown [id number] 2.16.84 [id number] Clinical Note 10-25-2021 Note Date & Type Note Facility 10-25-2021 Note OPERATIVE NOTE OPERATION DATE: 11/01/2021 PROCEDURE: Diagnostic laparoscopy with chromopertubation. PREOPERATIVE DIAGNOSIS: 1. Pelvic pain. 2. Possible tubal dysfunction. POSTOPERATIVE DIAGNOSIS: 1. Pelvic pain. 2. Possible tubal dysfunction. ANESTHESIA: General. SURGEON: Rosalva Welsh D.O. [facility] PRO[facility] COORDINATOR: DUC Sherman URINE OUTPUT: Yellow and clear. BLOOD LOSS: 5 mL. SPECIMEN: None. FINDINGS: Normal appearing ovaries and uterus. Slightly erythematous left tube. Otherwise, normal appearing right tube. Normal appearing appendix. Small area of endometriosis on the patient's right pelvic side wall in the patient's broad ligament. There was spillage from the right tube of dye when chromopertubation was performed. On the left side, no spillage could be noted. PROCEDURE: The patient was taken back to the Operating Room where she was placed in dorsal lithotomy position after given general anesthesia. The patient was prepped and draped in normal sterile fashion. A sponge stick was placed into the patient's vagina. Attention was turned to the patient's abdomen, where a small umbilical incision was made. The fascia was tented using Tena clamps and the fascia was entered sharply. Confirmation of intra-abdominal placement of the 10 mm port was confirmed under direct visualization using a laparoscope. The patient's abdomen was then insufflated using CO2 gas with approximately 4 liters. A second port was placed left laterally, this was done under direct visualization with a 5 mm port. Survey of the patient's abdomen demonstrated normal liver and gallbladder. Survey of the patient's pelvic anatomy demonstrated normal appearing ovaries and tubes as well as normal appearing uterus. No endometrial implants could be noted, no evidence of any pelvic disease was seen, normal appearing pelvic cavity. All instruments were removed from the patient's abdomen. The patient's abdomen was desufflated of CO2 gas. The patient tolerated the procedure well. Sponge stick was removed from the patient's vagina. The patient's infraumbilical fascia was closed using #0 Vicryl on a GI needle. The patient's skin was closed laterally and infraumbilically using 4-0 Vicryl. The patient tolerated the procedure well. Sponge, lap and needle counts were correct x 2. The patient was taken to Recovery Room in stable condition [facility] Summary Purpose Family History No Family History Records FoundNo Family History Records FoundNo Family History Records Found Advance Directives No Advanced Directives Records FoundNo Advanced Directives Records FoundNo Advanced Directives Records Found Additional Source Comments INFORMATION SOURCE (unrecogn ized section and content) DATE CREATED AUTHOR 05/18/2019 [facility] DATE CREATED AUTHOR AUTHOR'S ORGANIZ ATION 07/20/2022 [facility] DATE CREATED AUTHOR AUTHOR'S ORGANIZ ATION 04/15/2023 [facility] FOR RECORDS PERTAINING TO PATIENTS WHO ARE OR HAVE BEEN ENROLLED IN A CHEMICAL DEPENDENCY/SUBSTANCEABUSE PROGRAM, SOME INFORMATION MAY BE OMITTED. This clinical summary was aggregated from multiple sources. Caution should be exercised in using it in the provision of clinical care. This summary normalizes information from multiple sources, and as a consequence, information in this document may materially change the coding, format and clinical context of patient data. In addition, data may be omitted in some cases. CLINICAL DECISIONS SHOULD BE BASED ON THE PRIMARY CLINICAL RECORDS. [facility]. provides no warranty or guarantee of the accuracy or completeness of information in this document.
--- NOTE | 2023-04-15 14:07 | US_ITS ---
The [address] [address] Patient Name: DONALD ADAME MRN: [id number] date: 2000 Sex: F Assigned Patient Location: US Current Patient Location: US Accession/Order Number: [id number] Exam Date: 04/15/2023 14:09 Report Date: 04/15/2023 15:25 At the request of: ROSALVA GOMEZ Procedure: US pelvis w/ transvaginal EXAM: Pelvic ultrasound HISTORY: . Pelvic Pain In Female R10.2 . COMPARISON: None. TECHNIQUE: Transabdominal and transvaginal scanning was performed FINDINGS: The uterus is anteverted and measures 7.6 x 4.9 x 3.4 cm. Endometrial complex measures 10 mm. Right ovary measures 2.8 x 2.3 x 1.9 cm. Color-flow is noted. Resistive indexes 0.5. Follicles are noted. Left ovary measures 3.8 x 2.5 x 2.7 cm. Color-flow is noted. Follicles are noted. There is a 1.4 x 0.9 cm dominant follicle/simple cyst within the left ovary. No fluid is noted in the cul-de-sac. US/US pelvis w/ transvaginal IMPRESSION: 1. Normal-appearing uterus and endometrial complex. 2. Normal right ovary. 3. 1.4 x 0.9 cm dominant follicle/simple cyst within the left ovary. Electronically authenticated by: NIKO ENRIQUEZ Date: 04/15/2023 15:25
== END 2023-04-15 14:03 | disposition home or self-care (01) ==
LOC: US 14:03
PROVIDERS: PCP Family Medicine; Visit Provider Obstetrics & Gynecology
DX: R10.2 Pelvic and perineal pain (principal); N83.292 Other ovarian cyst, left side
CPT/HCPCS: 76830; 76856

== ENCOUNTER 2023-04-17 15:18 | Outpatient (OUT) | payer BC, SELFPAY ==
--- OUTSIDE RECORDS SUMMARY | 2023-04-17 15:21 | XMS_ITS | CCD ---
Author Name Unknown Address [address] [place] [address] Organization [facility] Care Team Providers Care Publications Writer Name Role Phone JASON ., DR BLACKWELL [...] PLUSon 0 07-17-2022 QuantiFERON Criteria Comment Normal [facility] Comment on above: Result Comment: Yon tiFERON-TB [...] test. Performed By: #### Q NTTB #### [facility] [address] [place] [address] Dr. Elie Milan QuantiFERON Incubation Incubation performed. Normal [facility] Comment on above: Performed By: #### Q NTTB #### [facility] [address] [place] [address] Dr. Elie Milan QuantiFERON Mitogen Value >10.00 Normal [facility] Comment on above: Performed By: #### Q NTTB #### [facility] [address] [place] [address] Dr. Elie Milan QuantiFERON Nil Value 0.05 IU/mL Normal [facility] Comment on above: Performed By: #### Q NTTB #### [facility] [address] [address] [address] Elie Milan QuantiFERON TB1 Ag Value 0.06 IU/mL Normal [facility] Comment on above: Performed By: #### Q NTTB #### [facility] [address] [address] [address] Elie Milan QuantiFERON TB2 Ag Value 0.07 IU/mL Normal [facility] Comment on above: Performed By: #### Q NTTB #### [facility] [address] [address] [address] Elie Milan QuantiFERON-TB Gold Plus Negative Normal Negative [facility] Comment on above: Result Comment: No r esponse to M tuberculosis antigens detected. Infection with M tuberculosis is unlikely, but high risk individuals should be considered for additional testing (ATS/IDSA/CDC Clinical Practice Guidelines, 2017). The reference range is an Antigen minus Nil result of <0.35 IU/mL. Chemiluminescence immunoassay methodology Performed By: #### Q NTTB #### [facility] [address] [place] [address] Dr. Elie Milan HEPATITIS B SURFACE ANTIBODY , QUANTon 07-16-2022 Hepatitis B Surf AB Quant <3.1 Critically low Immunity>9.9 [facility] Comment on above: Result Comment: Stat us of Immunity Anti-HBs Level Inconsistent with Immunity 0.0 - 9.9 Consistent with Immunity >9.9 Performed By: #### H EPBSRF #### [facility] [address] [place] [address] Dr. Elie Milan MMR IMMUNITYon 07-16-2022 Mumps Abs, IgG 261.0 AU/mL Normal Immune >10.9 [facility] Comment on above: Result Comment: Nega tive <9.0 Equivocal 9.0 - 10.9 Positive >10.9 A positive result generally indicates past exposure to Mumps virus or previous vaccination. Performed By: #### M MRIMMU #### [facility] [address] [place] [address] Dr. Elie Milan Rubella Antibodies, IgG 3.97 index Normal Immune >0.99 [facility] Comment on above: Result Comment: Non- immune <0.90 Equivocal 0.90 - 0.99 Immune >0.99 Performed By: #### M MRIMMU #### [facility] [address] [place] [address] [address] Elie Milan Rubeola Ab, IgG >300.0 Normal Immune >16.4 [facility] Comment on above: Result Comment: Nega tive <13.5 Equivocal 13.5 - 16.4 Positive >16.4 Presence of antibodies to Rubeola is presumptive evidence of immunity except when acute infection is suspected. Performed By: #### M MRIMMU #### [facility] [address] [address] [address] Elie Milan VARICELLA IGG ABon 3 Varicella Zoster IgG 1549 index Normal Immune >165 [facility] Comment on above: Result Comment: Nega tive <135 Equivocal 135 - 165 Positive >165 A positive result generally indicates exposure to the pathogen or administration of specific immunoglobulins, but it is not indication of active infection or stage of disease. Performed By: #### V ARCEL #### [facility] [address] [place], [place] [id number] Dr. Elie Milan US PELVIS AND TRANSVAGon [...] by: NIKO FOREMAN Date: 2022-02-04 20:13 Normal [facility] HCG-BETA SUBUNIT QUANTon hCG,Beta Subunit,Qnt,Serum <1 Normal [facility] Comment on above: Result Comment: Fema le (Non-) 0 - 5 (Postmenopausal) 0 - 8 . Female () Weeks of Gestation 3 6 - 71 4 10 - 750 5 526 - 5453 6 524 - 32866 7 3335 [phone] 8 89991 -369729 9 88180 -050608 10 22866 -804210 12 73181 -697533 14 55547 - 70111 15 84662 - 51016 16 4963 - 58466 17 6471 - 57064 18 5543 - 89562 Tanesha ECLIA methodology Performed By: #### H CGSUB #### [facility] [address] [place] [address] Dr. Elie Milan CBC AUTO DIFFon 10-23-2021 BASO # 0.1 103/ul Normal 0.0-0.1 [facility] Comment on above: Performed By: #### C BC #### [facility] [address] [place] [address] Dr. Elie Milan Basophils/100 WBC (Bld) 1.1 % Normal 0.2-2.0 [facility] Comment on above: Performed By: #### C BC #### [facility] [address] [place] [address] Dr. Elie Milan EO # 0.3 103/ul Normal 0.0-0.7 [facility] Comment on above: Performed By: #### C BC #### [facility] [address] [place] [address] Dr. Elie Milan Eosinophils/100 WBC (Bld) 4.6 % Normal 0.9-7.0 [facility] Comment on above: Performed By: #### C BC #### [facility] [address] [place] [address] Dr. Elie Milan Erythrocyte distribution width (RBC) [Ratio] 11.9 % Normal 11.0-15.0 [facility] Comment on above: Performed By: #### C BC #### [facility] [address] [place] [address] Dr. Elie Milan Hematocrit (Bld) [Volume fraction] 41.0 % Normal 36.0-48.0 [facility] Comment on above: Performed By: #### C BC #### [facility] [address] [address] [address] Elie Milan Hemoglobin (Bld) [Mass/Vol] 14.0 g/dL Normal 12.0-16.0 [facility] Comment on above: Performed By: #### C BC #### [facility] [address] [address] [address] Elie Milan IG # 0.02 10e3/ul Normal 0.00-0.03 [facility] Comment on above: Performed By: #### C BC #### [facility] [address] [place] [address] Dr. Elie Milan IG % 0.3 % Normal 0.0-0.5 [facility] Comment on above: Performed By: #### C BC #### [facility] [address] [place] [address] Dr. Elie Milan LYMPH # 1.3 103/ul Normal 1.2-3.8 [facility] Comment on above: Performed By: #### C BC #### [facility] [address] [place] [address] Dr. Elie Milan Lymphocytes/100 WBC (Bld) 17.9 % Critically low 20.5-60.0 [facility] Comment on above: Performed By: #### C BC #### [facility] [address] [place] [address] Dr. Elie Milan MANUAL DIFF REQ NO Normal [facility] Comment on above: Performed By: #### C BC #### [facility] [address] [place] [address] Dr. Elie Milan MCH (RBC) [Entitic mass] 30.9 pg Normal 26.7-34.0 [facility] Comment on above: Performed By: #### C BC #### [facility] [address] [place] [address] Dr. Elie Milan MCHC (RBC) [Mass/Vol] 34.1 g/dL Normal 29.9-35.2 [facility] Comment on above: Performed By: #### C BC #### [facility] [address] [address] [address] Elie Milan MCV (RBC) [Entitic vol] 90.5 fL Normal 81.0-99.0 [facility] Comment on above: Performed By: #### C BC #### [facility] [address] [address] [address] Elie Milan MONO # 0.5 103/ul Normal 0.3-0.8 [facility] Comment on above: Performed By: #### C BC #### [facility] [address] [address] [address] Elie Milan Monocytes/100 WBC (Bld) 7.3 % Normal 1.7-12.0 [facility] Comment on above: Performed By: #### C BC #### [facility] [address] [place] [address] Dr. Elie Milan NEUT # 4.8 103/ul Normal 1.4-6.5 [facility] Comment on above: Performed By: #### C BC #### [facility] [address] [place] [address] Dr. Elie Milan Neutrophils/100 WBC (Bld) 68.8 % Normal 43.0-75.0 [facility] Comment on above: Performed By: #### C BC #### [facility] [address] [place] [address] Dr. Elie Milan Platelet mean volume (Bld) [Entitic vol] 9.9 fL Normal 9.5-13.5 [facility] Comment on above: Performed By: #### C BC #### [facility] [address] [place] [address] Dr. Elie Milan PLT 223 103/ul Normal 150-450 [facility] Comment on above: Performed By: #### C BC #### [facility] [address] [place] [address] Dr. Elie Milan RBC 4.53 106/ul Normal 4.20-5.40 [facility] Comment on above: Performed By: #### C BC #### [facility] [address] [place] [address] [address] Elie Milan WBC 7.0 103/ul Normal 4.0-11.0 [facility] Comment on above: Performed By: #### C BC #### [facility] [address] [place] [address] [address] Elie Milan HCG-BETA SUBUNIT QUANTon hCG,Beta Subunit,Qnt,Serum <1 Normal [facility] Comment on above: Result Comment: Fema le (Non-) 0 - 5 (Postmenopausal) 0 - 8 . Female () Weeks of Gestation 3 6 - 71 4 10 - 750 5 743 - 2520 6 389 - 00578 7 5695 -269343 8 04013 -207516 9 65420 -660469 10 68154 -403908 12 54398 -515442 14 41148 - 64029 15 56706 - 65754 16 5632 - 74674 17 1078 - 36762 18 7874 - 45927 Tanesha ECLIA methodology Performed By: #### H CGSUB #### [facility] [address] [place] [address] Elie Milan US PELVIS TRANSVAGon 022 [...] NIKO FOREMAN Date: 2021-10-08 16:31 Normal [facility] CNOVSPon 05-17-2019 CNOVSP Visit (SP) Office ([facility]) LOYDA GIBSON ([id number]) 2000 F Date Time Provider Department 05/17/19 10:45 AM FORD MORGAN) IFTIKHAR During your visit today, we recorded the following information about you: Temperature Pulse Respiration Blood pressure 98.2 degrees 86/minute 18/minute 121/71 Weight Height 56.8 kg 1.632 m Ford Morgan MD 05/17/2019 2:07 PM Signed PATIENT NAME: Loyda Gibson CLINIC NO.: [id number] ATTENDING PHYSICIAN: Ford Morgan MD DATE OF SERVICE: May 17, 2019 This document has been created with the use of voice recognition technology. It may contain inaccuracies, misspellings, inaccurate syntax or inappropriate word context that escaped review. Dear Dr. Ford Morgan MD [address] [place] [address] here is an update on a follow [...] do not hesitate to contact me at [phone]. Ford Morgan MD Hematology/Medical Oncology [facility] CC: Shaw Jorgensen Referring Provider: FORD MORGAN) [[id number]] Allergies As of Date: 05/17/2019 (No Known [...] Status:Closed by FORD MORGAN MD on 05/17/19 [facility] PROGRESSon 05-17-2019 PROGRESS HNO ID: [id number] Author: Ford Morgan Service: ? Author Type: Physician Type: Progress Notes Filed: 05/17/2019 2:07 PM Note Text: PATIENT NAME: Loyda Gibson [facility] NO.: [id number] ATTENDING PHYSICIAN: Ford Morgan MD DATE OF SERVICE: May 17, 2019 This document has been created with the use of voice recognition technology. It may contain inaccuracies, misspellings, inaccurate syntax or inappropriate word context that escaped review. Dear Dr. Ford Morgan MD [address] [place] [phone] here is an update on a follow [...] do not hesitate to contact me at [phone]. Ford Morgan MD Hematology/Medical Oncology [facility] CC: Shaw Jorgensen Normal [facility] APTTon 05-10-2019 aPTT Coag (Bld) [Time] 27.1 s Normal 23.0-32.4 [facility] Comment on above: Result Comment: Unfr [...] laboratory APTT reagent in use throughout the [facility]. Performed By: #### P RSCLT, PTT, PT, PRCFUN #### [facility] [address], [place] [address] Protein C Functionalon 05-10 Protein [Mass/Vol] 89 % Normal 76-147 [facility] Comment on above: Performed By: #### P RSCLT, PTT, PT, PRCFUN #### [facility] [address] [place], [place] [id number] Protein S Clottableon 2019 Protein S Clottable 58 % Low 59-131 [facility] Comment on above: Result Comment: Resu [...] #### P RSCLT, PTT, PT, PRCFUN #### [facility] [address] [place], [place] [address] Protimeon 05-10-2019 PT Coag (PPP) [Time] 10.2 s Normal 9.7-13.0 [facility] Comment on above: Performed By: #### P RSCLT, PTT, PT, PRCFUN #### [facility] [address], [place] [address] PT Coag (PPP) [Time] 0.9 s Normal 0.9-1.3 [facility] Comment on above: Result Comment: Maria D min K Antagonist (VKA) Therapeutic Range: INR 2 to 3 (Target INR of 2.5) Note: For patients treated with VKA drugs, such as warfarin, the [place] [employer] 2012 Guideline recommends [...] Chest 2012, 141:7S-47S Deo RA, et al. [facility] 2017, 70: 252-289 Performed By: #### P RSCLT, PTT, PT, PRCFUN #### [facility] [address], [place] [address] CNOVSPon 04-12-2019 CNOVSP Visit (SP) Office ([facility]) LOYDA GIBSON ([id number]) 2000 F Date Time Provider Department 04/12/19 4:15 PM FORD MORGAN) HEMASA During your visit today, we recorded the following information about you: Temperature Pulse Respiration Blood pressure 97.8 degrees 90/minute 18/minute 119/74 Weight Height 56.7 kg 1.632 m Ford Morgan MD 04/12/2019 4:48 PM Signed PATIENT NAME: Loyda Gibson CLINIC NO.: [id number] ATTENDING PHYSICIAN: Ford Morgan MD DATE OF [...] me to participate in Miss Loyda Gibson [facility], if there are any questions or concerns please do not hesitate to contact me at the number below. Ford Morgan M.D. 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] Order(s):ACTIVATED PTT [SQPTT] Order #: [id number] FUTURE PROTHROMBIN TIME/PT [SQPT] Order #: [id number] FUTURE TUBES - DRAW EXTRA [SQXTUBE] Order #: [id number] FUTURE PROTEIN C FUNCT [SQPRCFUN] Order #: [id number] FUTURE PROTEIN S CLOTTABLE [SQPRSCLT] Order #: [id number] FUTURE Follow-up and Disposition History Recorded Prescriptions as of 04/12/2019 Sig: NORGESTIMATE 0.25 MG-ETHINYL * Take 1 tablet by mouth once d* Problem List As Of Date: 04/12/2019 (None) Encounter Status:Closed by FORD MORGAN MD on 04/12/19 Normal [facility] PROGRESSon 04-12-2019 PROGRESS HNO ID: [id number] Author: Ford Morel) Cathy Service: ? Author Type: Physician Type: Progress Notes Filed: 04/12/2019 4:48 PM Note Text: PATIENT NAME: Loyda Gibson [facility] NO.: [id number] ATTENDING PHYSICIAN: Ford Morgan MD DATE OF [...] below. Ford Morgan M.D. Hematology/Medical Oncology [facility] [place] [address] [phone] CC: Normal [facility] Encounters Encounter Date Encounter Type Care Provider Facility Start: 04-14-2023 End: 04-14-2023 ambulatory ROSALVA WELSH Not Available Start: 07-15-2022 End: 07-16-2022 ambulatory RACHEL SHETH Facility:[facility] Start: 02-04-2022 End: 02-05-[address] ROSALVA WELSH . Facility:[facility] Start: 10-29-2021 Encounter for prepro cedural laboratory examination DR ROSALVA WELSH . [facility] Start: 10-25-2021 End: 10-25-[address] ROSALVA WELSH . Facility:[facility] Start: 10-23-2021 End: 10-24-[address] ROSALVA WELSH . Facility:[facility] Start: 10-23-2021 End: 10-24-2021 Encounter for preprocedural laboratory examination DR ROSALVA WELSH . Facility:[facility] Start: 10-22-2021 Encounter for other preprocedural examination DR ROSALVA WELSH . [facility] Start: 10-17-2021 End: 10-18-[address] ROSALVA WELSH . Facility:[facility] Start: 10-17-2021 End: 10-18-2021 Encounter for other preprocedural examination DR ROSALVA WELSH . Facility:[facility] Start: 10-09-2021 End: 10-10-[address] ROSALVA WELSH . Facility:[facility] Start: 10-08-2021 End: 10-09-[address] ROSALVA WELSH . Facility: Payers Date Payer Category Payer Unknown [id number] 2000 Unknown [id number] 2.16.84 [id number] 2000 Unknown [id number] 2.16.84 [id number] 2000 Unknown [id number] 2.16.84 [id number] 2000 Unknown [id number] 2.16.84 [id number] 2000 Unknown [id number] 2.16.84 [id number] 1999 Unknown [id number] 2.16.84 [id number] 1999 Unknown [id number] 2.16.84 [id number] 1960 Self-pay 1960 Unknown [id number] Unknown [id number] 2.16.84 [id number] Clinical Note 10-25-2021 Note Date & Type Note Facility 10-25-2021 Note OPERATIVE NOTE OPERATION DATE: 11/01/2021 PROCEDURE: Diagnostic laparoscopy with chromopertubation. PREOPERATIVE DIAGNOSIS: 1. Pelvic pain. 2. Possible tubal dysfunction. POSTOPERATIVE DIAGNOSIS: 1. Pelvic pain. 2. Possible tubal dysfunction. ANESTHESIA: General. SURGEON: Rosalva Welsh D.O. [employer] OBJECTS DEVELOPER: DUC Sherman URINE OUTPUT: Yellow and clear. [...] to Recovery Room in stable condition [facility] Summary Purpose Family History No Family History Records FoundNo Family History Records FoundNo Family History Records Found Advance Directives No Advanced Directives Records FoundNo Advanced Directives Records FoundNo Advanced Directives Records Found Additional Source Comments INFORMATION SOURCE (unrecogn ized section and content) DATE CREATED AUTHOR 05/18/2019 [facility] DATE CREATED AUTHOR AUTHOR'S ORGANIZ ATION 07/20/2022 [facility] DATE CREATED AUTHOR AUTHOR'S ORGANIZ ATION 04/15/2023 [facility] dical Specialists [facility] FOR RECORDS PERTAINING TO PATIENTS WHO ARE [...] BE BASED ON THE PRIMARY CLINICAL RECORDS. [facility]. provides no warranty or guarantee of the accuracy or completeness of information in this document.
[2023-04-18 08:09] LABS: Progesterone 14.3 ng/mL (.)
== END 2023-04-17 15:19 | disposition home or self-care (01) ==
LOC: LAB 15:18
PROVIDERS: PCP Family Medicine; Visit Provider Obstetrics & Gynecology
DX: N97.9 Female infertility, unspecified (principal)
CPT/HCPCS: 36415; 84144

== ENCOUNTER 2023-05-25 17:07 | Emergency (ER) | payer BC, SELFPAY ==
[2023-05-25 17:21] VITALS: BP 150/98; PULSE 86; RESP 16; TEMP 37.2; O2SAT 98; BMI 26.6
--- OUTSIDE RECORDS SUMMARY | 2023-05-25 17:46 | XMS_ITS | CCD ---
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 Name Role Phone JASON ., DR BLACKWELL [...] Unavailable JASON ., DR BLACKWELL Consulting Unavailable AGUBOSIMNIKKY Consulting Unavailable LU ALY Consulting Unavailable JASON ., DR BLACKWELL Admitting Unavailable JASON ., DR BLACKWELL Attending Unavailable HOY ., DR HAY Primary Care Unavailable JASON ., DR BLACKWELL Consulting Unavailable JASON ., DR BLACKWELL Admitting Unavailable JASON ., DR BLACKWELL Attending Unavailable CHIY ., DR HAY Primary Care Unavailable AHSAN, DR NIKO Selby Consulting Unavailable JASON ., DR BLACKWELL Consulting Unavailable RACHEL SHETH Admitting Unavailable RACHEL SHETH Attending Unavailable JAIR ., DR HAY Primary Care Unavailable RACHEL SHETH Consulting Unavailable JASON ., DR BLACKWELL Admitting Unavailable JASON ., DR BLACKWELL Attending Unavailable CHIY ., DR HAY Primary Care Unavailable AHSAN, DR NIKO Selby Consulting Unavailable ROSALVA WELSH Attending Unavailable RAFAELA ENCARNACION Attending Unavailable Shaw Jorgensen MD Primary Care Provider [phone] Medications Current Medications Medication Drug Class(es) Dates Sig (Normalized) Sig (Original) cetirizine hydrochloride 10 mg oral tablet (1 source) Histamine-1 Receptor Antagonist cetirizine (ZyrTEC) 10 MG tablet 1 (one) time each day at the same time. 0 Active DULoxetine 60 mg delayed release oral capsule (1 source) Serotonin and Norepinephrine Reuptake Inhibitor take 1 capsule by mouth in the morning DULoxetine (Cymbalta) [address] capsule Take 60 mg by mouth in the morning. 0 Active fluocinonide 0.5 mg/ml topical solution (1 source) Corticosteroid Start: 04-22-2023 fluocinonide (Lidex) 0.05 % external solution Indications: Other seborrheic dermatitis Apply to affected areas on the scalp, up to twice a day when flared, 30 day supply 60 mL 11 04/22/2023 Active ibuprofen 800 mg oral tablet (1 source) Nonsteroidal Anti-inflammatory Drug Start: 07-01-2022 ibuprofen 800 MG tablet TAKE 1 TABLET BY MOUTH EVERY 6 TO 8 HOURS NEEDED 0 07/01/2022 Active ketoconazole 20 mg/ml medicated shampoo (1 source) Azole Antifungal Start: 04-23-2023 End: 05-23-2023 ketoconazole (NIZOral) 2 % shampoo Indications: Other seborrheic dermatitis Apply topically 2 (two) times a week Lather on scalp 2x a week, leave on 5 min before rinsing 120 mL 11 04/23/2023 05/23/2023 Active QUEtiapine 50 mg oral tablet (2 sources) Atypical Antipsychotic Start: 03-08-2023 take 2 tablets by mouth in the morning QUEtiapine (SEROquel) 50 MG tablet Take 100 mg by mouth in the morning. 0 03/08/2023 Active Start: 03-15-2022 End: 05-05-2023 QUEtiapine (SEROquel) 25 MG tablet Completed/Discontinued Medications Medication Drug Class(es) Dates Sig (Normalized) Sig (Original) 24 hr buPROPion hydrochloride 300 mg extended release oral tablet (1 source) Aminoketone Start: 04-17-2022 End: 05-05-2023 take 1 tablet by mouth every twenty-four hours in the morning buPROPion XL (Wellbutrin XL) 300 MG 24 hr tablet Take 300 mg by mouth in the morning. 0 04/17/2022 05/05/2023 Discontinued cariprazine 1.5 mg oral capsule (1 source) Atypical Antipsychotic Start: 07-06-2022 End: 05-05-2023 take 1 capsule by mouth in the morning Vraylar 1.5 MG capsule Take 1 capsule by mouth in the morning. 0 07/06/2022 05/05/2023 Discontinued ethinyl estradiol 0.035 mg / norgestimate 0.25 mg oral tablet (1 source) Progestin, Estrogen End: 05-05-2023 norgestimate-ethi nyl estradiol (Ortho-Cyclen) 0.25-35 MG-MCG tablet Take 1 tablet by mouth in the morning. 0 05/05/2023 Discontinued mirtazapine 15 mg oral tablet (1 source) Start: 05-25-2022 End: 05-05-2023 take 1 tablet by mouth at bedtime mirtazapine (Remeron) 15 MG tablet Take 15 mg by mouth at bedtime 0 05/25/2022 05/05/2023 Discontinued phentermine hydrochloride 37.5 mg oral tablet (1 source) Sympathomimetic Amine Anorectic Start: 01-26-2023 End: 05-05-2023 take 1 tablet by mouth before mealtime phentermine (Adipex-P) 37.5 MG tablet Indications: Encounter for weight management Take 1 tablet (37.5 mg) by mouth in the morning. Take before meals. 30 tablet 0 01/26/2023 05/05/2023 Discontinued Problems Active Problems Problem Classification Problem Date Documented Da te Episodic/Chronic Abdominal pain (5 sources) Pelvic and perineal pain; Translations: [Pain in female pelvis] Onset: 10-25-2021 Episodic Administrative/social admission (5 sources) Encounter for pre-employment examination; Translations: [Follow-up status] Onset: 07-15-2022 Episodic Menstrual disorders (2 sources) [...] Classification Problem Date Documented Da te Episodic/Chronic Other female genital disorders (4 sources) Other specified conditions associated with female genital organs and menstrual cycle; Translations: [OTH SPEC COND FE GEN ORG MENST CYCL] Onset: 02-04-2022 Episodic Results Test Name Value Interpretation Reference Range Facil ity QUANTIFERON TB GOLD PLUSon 0 07-17-2022 QuantiFERON Criteria Comment Normal [facility] Comment on above: Result Comment: Yon [...] test. Performed By: #### Q NTTB #### [facility] [address] [place] [address] Dr. Elie Milan QuantiFERON Incubation Incubation performed. Normal [facility] Comment on above: Performed By: #### Q NTTB #### [facility] [address] [place] [address] Dr. Elie Milan QuantiFERON Mitogen Value >10.00 Normal [facility] Comment on above: Performed By: #### Q NTTB #### [facility] [address] [place] [address] Dr. Elie Milan QuantiFERON Nil Value 0.05 IU/mL [facility] Comment on above: Performed By: #### Q NTTB #### [facility] [address] [place] [address] Dr. Elie Milan QuantiFERON TB1 Ag Value 0.06 IU/mL Normal [facility] Comment on above: Performed By: #### Q NTTB #### [facility] [address] [place] [address] Dr. Elie Milan QuantiFERON TB2 Ag Value 0.07 IU/mL Normal [facility] Comment on above: Performed By: #### Q NTTB #### [facility] [address] [place] [address] Dr. Elie Milan QuantiFERON-TB Gold Plus Negative Normal Negative [facility] Comment on above: Result Comment: No r esponse to M tuberculosis antigens detected. Infection with M tuberculosis is unlikely, but high risk individuals should be considered for additional testing (ATS/IDSA/CDC Clinical Practice Guidelines, 2017). The reference range is an Antigen minus Nil result of <0.35 IU/mL. Chemiluminescence immunoassay methodology Performed By: #### Q NTTB #### [facility] [address] [place] [address] Dr. Elie Milan HEPATITIS B SURFACE ANTIBODY , QUANTon 07-16-2022 Hepatitis B Surf AB Quant <3.1 Critically low Immunity>9.9 [facility] Comment on above: Result Comment: Stat us of Immunity Anti-HBs Level Inconsistent with Immunity 0.0 - 9.9 Consistent with Immunity >9.9 Performed By: #### H EPBSRF #### [facility] [address] [place] [address] Dr. Elie Milan MMR IMMUNITYon 07-16-2022 Mumps Abs, IgG 261.0 AU/mL Normal Immune >10.9 [facility] Comment on above: Result Comment: Nega tive <9.0 Equivocal 9.0 - 10.9 Positive >10.9 A positive result generally indicates past exposure to Mumps virus or previous vaccination. Performed By: #### M MRIMMU #### [facility] [address] [place] [address] Dr. Elie Milan Rubella Antibodies, IgG 3.97 index Normal Immune >0.99 [facility] Comment on above: Result Comment: Non- immune <0.90 Equivocal 0.90 - 0.99 Immune >0.99 Performed By: #### M MRIMMU #### [facility] [address] [place] [address] Dr. Elie Milan Rubeola Ab, IgG >300.0 Normal Immune >16.4 [facility] Comment on above: Result Comment: Nega tive <13.5 Equivocal 13.5 - 16.4 Positive >16.4 Presence of antibodies to Rubeola is presumptive evidence of immunity except when acute infection is suspected. Performed By: #### M MRIMMU #### [facility] [address] [place], [place] [address] Dr. Elie Milan VARICELLA IGG ABon 3 Varicella Zoster IgG 1549 index Normal Immune >165 [facility] Comment on above: Result Comment: Nega tive <135 Equivocal 135 - 165 Positive >165 A positive result generally indicates exposure to the pathogen or administration of specific immunoglobulins, but it is not indication of active infection or stage of disease. Performed By: #### V ARCEL #### [facility] [address] [place], [place] [address] Dr. Elie Milan US PELVIS AND TRANSVAGon [...] by: NIKO FOREMAN Date: 2022-02-04 20:13 Normal [facility] HCG-BETA SUBUNIT QUANTon hCG,Beta Subunit,Qnt,Serum <1 Normal [facility] Comment on above: Result Comment: Fema le (Non-) 0 - 5 (Postmenopausal) 0 - 8 . Female () Weeks of Gestation 3 6 - 71 4 10 - 750 5 164 - 6032 6 569 - 97455 7 9490 -455381 8 02687 -341176 9 42188 -032790 10 37706 -616137 12 43579 -839607 14 57857 - 59132 15 52774 - 66012 16 2380 - 08652 17 0185 - 23909 18 6749 - 41405 Tanesha ECLIA methodology Performed By: #### H CGSUB #### [facility] [address] [place] [address] [address] Elie Milan CBC AUTO DIFFon 10-23-2021 BASO # 0.1 103/ul Normal 0.0-0.1 [facility] Comment on above: Performed By: #### C BC #### [facility] [address] [address] [address] Elie Milan Basophils/100 WBC (Bld) 1.1 % Normal 0.2-2.0 [facility] Comment on above: Performed By: #### C BC #### [facility] [address] [place] [address] Dr. Elie Milan EO # 0.3 103/ul Normal 0.0-0.7 [facility] Comment on above: Performed By: #### C BC #### [facility] [address] [place] [address] Dr. Elie Milan Eosinophils/100 WBC (Bld) 4.6 % Normal 0.9-7.0 [facility] Comment on above: Performed By: #### C BC #### [facility] [address] [place] [address] Dr. Elie Milan Erythrocyte distribution width (RBC) [Ratio] 11.9 % Normal 11.0-15.0 [facility] Comment on above: Performed By: #### C BC #### [facility] [address] [place] [address] Dr. Elie Milan Hematocrit (Bld) [Volume fraction] 41.0 % Normal 36.0-48.0 [facility] Comment on above: Performed By: #### C BC #### [facility] [address] [place] [address] Dr. lEie Milan Hemoglobin (Bld) [Mass/Vol] 14.0 g/dL Normal 12.0-16.0 [facility] Comment on above: Performed By: #### C BC #### [facility] [address] [place] [address] Dr. Elie Milan IG # 0.02 10e3/ul Normal 0.00-0.03 [facility] Comment on above: Performed By: #### C BC #### [facility] [address] [place] [address] Dr. Elie Milan IG % 0.3 % Normal 0.0-0.5 [facility] Comment on above: Performed By: #### C BC #### [facility] [address] [place] [address] Dr. Elie Milan LYMPH # 1.3 103/ul Normal 1.2-3.8 [facility] Comment on above: Performed By: #### C BC #### [facility] [address] [place] [address] Dr. Elie Milan Lymphocytes/100 WBC (Bld) 17.9 % Critically low 20.5-60.0 [facility] Comment on above: Performed By: #### C BC #### [facility] [address] [place] [address] Dr. Elie Milan MANUAL DIFF REQ NO Normal [facility] Comment on above: Performed By: #### C BC #### [facility] [address] [place] [address] Dr. Elie Milan MCH (RBC) [Entitic mass] 30.9 pg Normal 26.7-34.0 [facility] Comment on above: Performed By: #### C BC #### [facility] [address] [place] [address] Dr. Elie Milan MCHC (RBC) [Mass/Vol] 34.1 g/dL Normal 29.9-35.2 [facility] Comment on above: Performed By: #### C BC #### [facility] [address] [place] [address] Dr. Elie Milan MCV (RBC) [Entitic vol] 90.5 fL Normal 81.0-99.0 [facility] Comment on above: Performed By: #### C BC #### [facility] [address] [place] [address] Dr. Elie Milan MONO # 0.5 103/ul Normal 0.3-0.8 [facility] Comment on above: Performed By: #### C BC #### [facility] [address] [place] [address] Dr. Elie Milan Monocytes/100 WBC (Bld) 7.3 % Normal 1.7-12.0 [facility] Comment on above: Performed By: #### C BC #### [facility] [address] [place] [address] Dr. Elie Milan NEUT # 4.8 103/ul Normal 1.4-6.5 [facility] Comment on above: Performed By: #### C BC #### [facility] [address] [place] [address] Dr. Elie Milan Neutrophils/100 WBC (Bld) 68.8 % Normal 43.0-75.0 [facility] Comment on above: Performed By: #### C BC #### [facility] [address] [place] [address] Dr. Elie Milan Platelet mean volume (Bld) [Entitic vol] 9.9 fL Normal 9.5-13.5 [facility] Comment on above: Performed By: #### C BC #### [facility] [address] [place] [address] Dr. Elie Milan PLT 223 103/ul Normal 150-450 [facility] Comment on above: Performed By: #### C BC #### [facility] [address] [place] [address] Dr. Elie Milan RBC 4.53 106/ul Normal 4.20-5.40 [facility] Comment on above: Performed By: #### C BC #### [facility] [address] [place] [address] Dr. Elie Milan WBC 7.0 103/ul Normal 4.0-11.0 [facility] Comment on above: Performed By: #### C BC #### [facility] [address] [place] [address] Dr. Elie Milan HCG-BETA SUBUNIT QUANTon hCG,Beta Subunit,Qnt,Serum <1 Normal [facility] Comment on above: Result Comment: Fema le (Non-) 0 - 5 (Postmenopausal) 0 - 8 . Female () Weeks of Gestation 3 6 - 71 4 10 - 750 5 892 - 7384 6 695 - 07293 7 8440 -481525 8 82457 -509405 9 13783 -069705 10 24127 -831234 12 05923 -975875 14 95190 - 24339 15 98249 - 77180 16 0107 - 20148 17 6265 - 13934 18 5577 - 64860 Tanesha ECLIA methodology Performed By: #### H CGSUB #### [facility] [address] [place] [address] Dr. Elie Milan US PELVIS TRANSVAGon 022 [...] by: NIKO FOREMAN Date: 2021-10-08 16:31 Normal [facility] CNOVSPon 05-17-2019 CNOVSP Visit (SP) Office ([facility]) LOYDA ADAME ([id number]) 2000 F Date Time Provider Department 05/17/19 10:45 AM FORD MORGAN) IFTIKHAR During your visit today, we recorded the following information about you: Temperature Pulse Respiration Blood pressure 98.2 degrees 86/minute 18/minute 121/71 Weight Height 56.8 kg 1.632 m Ford Morgan MD 05/17/2019 2:07 PM Signed PATIENT NAME: Loyda Adame CLINIC NO.: [id number] ATTENDING PHYSICIAN: Ford Morgan MD DATE OF SERVICE: May 17, 2019 This document has been created with the use of voice recognition technology. It may contain inaccuracies, misspellings, inaccurate syntax or inappropriate word context that escaped review. Dear Dr. Ford Morgan MD [address] [place] [address] here is an update on a follow up visit on female Loyda Adame at the clinic 05/17/2019 Diagnosis: ? Protein S def Treatment History: HPI: Loyda Adame is a 19 year old year old [...] ABSBASO PATH: Imaging: Assessment and Plan: Loyda Adame is a 19 year old year old female here for follow up. Patient does not have Protein S def. NO further work up at this time. Follow up with urology Thank you for the kind referral. If there are any questions and or concerns please do not hesitate to contact me at [phone]. Ford Morgan MD Hematology/Medical Oncology [facility] CC: Shaw Jorgensen Referring Provider: FORD MORGAN) [[id number]] Allergies As of Date: 05/17/2019 (No Known [...] Status:Closed by FORD MORGAN MD on 05/17/19 [facility] PROGRESSon 05-17-2019 PROGRESS HNO ID: [id number] Author: Ford Morel) Cathy Service: ? Author Type: Physician Type: Progress Notes Filed: 05/17/2019 2:07 PM Note Text: PATIENT NAME: Loyda Adame [facility] NO.: [id number] ATTENDING PHYSICIAN: Ford Morgan MD DATE OF SERVICE: May 17, 2019 This document has been created with the use of voice recognition technology. It may contain inaccuracies, misspellings, inaccurate syntax or inappropriate word context that escaped review. Dear Dr. Ford Morgan MD [address] [place] [address] here is an update on a follow up visit on female Loyda Adame at the clinic 05/17/2019 Diagnosis: ? Protein S def Treatment History: HPI: Loyda Adame is a 19 year old year old [...] ABSBASO PATH: Imaging: Assessment and Plan: Loyda Adame is a 19 year old year old female here for follow up. Patient does not have Protein S def. NO further work up at this time. Follow up with urology Thank you for the kind referral. If there are any questions and or concerns please do not hesitate to contact me at [phone]. Ford Morgan MD Hematology/Medical Oncology [facility] CC: Shaw Jorgensen Normal [facility] APTTon 05-10-2019 aPTT Coag (Bld) [Time] 27.1 s Normal 23.0-32.4 [facility] Comment on above: Result Comment: Unfr [...] laboratory APTT reagent in use throughout the [facility]. Performed By: #### P RSCLT, PTT, PT, PRCFUN #### [facility] [employer] [address] [place], [place] [address] Protein C Functionalon 05-10 Protein [Mass/Vol] 89 % Normal 76-147 [facility] Comment on above: Performed By: #### P RSCLT, PTT, PT, PRCFUN #### [facility] [address] [place], [place] [address] Protein S Clottableon 2019 Protein S Clottable 58 % Low 59-131 [facility] Comment on above: Result Comment: Resu [...] #### P RSCLT, PTT, PT, PRCFUN #### [facility] [address] [place], [place] [address] Protimeon 05-10-2019 PT Coag (PPP) [Time] 10.2 s Normal 9.7-13.0 [facility] Comment on above: Performed By: #### P RSCLT, PTT, PT, PRCFUN #### [facility] [address], [place] [id number] PT Coag (PPP) [Time] 0.9 s Normal 0.9-1.3 [facility] Comment on above: Result Comment: Maria D min K Antagonist (VKA) Therapeutic Range: INR 2 to 3 (Target INR of 2.5) Note: For patients treated with VKA drugs, such as warfarin, the [employer] 2012 Guideline recommends [...] to 3.5 (target INR of 3). John PADGETT, et al. Chest 2012, 141:7S-47S Deo GARLAND et al. [facility] 2017, 70: 252-289 Performed By: #### P RSCLT, PTT, PT, PRCFUN #### [facility] [address] [place], [place] [address] CNOVSPon 04-12-2019 CNOVSP Visit (SP) Office ([facility]) LOYDA ADAME ([id number]) 2000 F Date Time Provider Department 04/12/19 4:15 PM FROD MORGAN) HEMJOLYNN During your visit today, we recorded the following information about you: Temperature Pulse Respiration Blood pressure 97.8 degrees 90/minute 18/minute 119/74 Weight Height 56.7 kg 1.632 m Ford Morgan MD 04/12/2019 4:48 PM Signed PATIENT NAME: Loyda Adame CLINIC NO.: [id number] ATTENDING PHYSICIAN: Ford Morgan MD DATE OF SERVICE: April 12, 2019 This document has been created with the use of voice recognition technology. It may contain inaccuracies, misspellings, inaccurate syntax or inappropriate word context that escaped review. Dear Dr. Rosalva Welsh, DO thank you for referring Miss Loyda Adame for an opinion regarding diagnosis of protein S deficiency. CHIEF COMPLAINT: I have abnormal blood levels HPI: Loyda Adame is a 19 year old year old [...] ABSBASO PATH: IMAGING: ASSESSMENT AND PLAN: Loyda Adame is a 19 year old year old [...] this point is required. Dear Dr. Rosalva Welsh, DO, thank you for allowing me to participate in Miss Loyda Adame care, if there are any questions or concerns please do not hesitate to contact me at the number below. Ford Morgan M.D. 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] Order(s):ACTIVATED PTT [SQPTT] Order #: [id number] FUTURE PROTHROMBIN TIME/PT [SQPT] Order #: [id number] FUTURE TUBES - DRAW EXTRA [SQXTUBE] Order #: [id number] FUTURE PROTEIN C FUNCT [SQPRCFUN] Order #: [id number] FUTURE PROTEIN S CLOTTABLE [SQPRSCLT] Order #: [id number] FUTURE Follow-up and Disposition History Recorded Prescriptions as of 04/12/2019 Sig: NORGESTIMATE 0.25 MG-ETHINYL * Take 1 tablet by mouth once d* Problem List As Of Date: 04/12/2019 (None) Encounter Status:Closed by FORD MORGAN MD on 04/12/19 Normal [facility] PROGRESSon 04-12-2019 PROGRESS HNO ID: [id number] Author: Ford Morgan Service: ? Author Type: Physician Type: Progress Notes Filed: 04/12/2019 4:48 PM Note Text: PATIENT NAME: Loyda Adame [facility] NO.: [id number] ATTENDING PHYSICIAN: Ford Morgan MD DATE OF SERVICE: April 12, 2019 This document has been created with the use of voice recognition technology. It may contain inaccuracies, misspellings, inaccurate syntax or inappropriate word context that escaped review. Dear Dr. Rosalva Welsh, DO thank you for referring Miss Loyda Adame for an opinion regarding diagnosis of protein S deficiency. CHIEF COMPLAINT: I have abnormal blood levels HPI: Loyda Adame is a 19 year old year old [...] ABSBASO PATH: IMAGING: ASSESSMENT AND PLAN: Loyda Adame is a 19 year old year old [...] this point is required. Dear Dr. Rosalva Welsh, , thank you for allowing me to participate in Miss Loyda Adame [facility], if there are any questions or concerns please do not hesitate to contact me at the number below. Ford Morgan M.D. Hematology/Medical Oncology [facility] [phone] CC: Normal [facility] Encounters Encounter Date Encounter Type Care Provider Facility Start: 05-05-2023 End: 05-05-2023 Phys/qhp telephone evaluation 5-10 min Rosalva Welsh DO Work Phone: [facility] Comment on above: Encounter to discuss test results Start: 04-22-2023 End: 04-22-2023 ambulatory RAFAELA ENCARNACION Not Available Start: 04-14-2023 End: 04-14-2023 ambulatory ROSALVA WELSH Not Available Start: 07-15-2022 End: 07-16-2022 ambulatory RACHEL SHETH Facility:[facility] Start: 02-04-2022 End: 02-05-[address] ROSALVA WELSH . Facility:[facility] Start: 10-29-2021 Encounter for preprocedural laboratory examination DR ROSALVA WELSH . [facility] Start: 10-25-2021 End: 10-25-[address] ROSALVA WELSH . Facility:[facility] Start: 10-23-2021 End: 10-24-[address] ROSALVA WELSH . Facility:[facility] Start: 10-23-2021 End: 10-24-2021 Encounter for preprocedural laboratory examination DR ROSALVA WELSH . Facility:[facility] Start: 10-22-2021 Encounter for other preprocedural examination DR ROSALVA WELSH . [facility] Start: 10-17-2021 End: 10-18-[address] ROSALVA WELSH . Facility:[facility] Start: 10-17-2021 End: 10-18-2021 Encounter for other preprocedural examination DR ROSALVA WELSH . Facility:[facility] Start: 10-09-2021 End: 10-10-[address] ROSALVA WELSH . Facility:[facility] Start: 10-08-2021 End: 10-09-[address] ROSALVA WELSH . Facility: Plan of Treatment Date Care Activity Detail Author Start: 12-15-2023 End: 12-15-2023 Patient encounter procedure 12/15/2023 11:00 AM EDT Office Visit [facility] [address] [place] [id number] Rosalva Welsh, DO [address] [place] [address] [facility] Start: 05-11-2023 End: 05-11-2023 Patient encounter procedure 05/11/2023 4:05 PM EST Office Visit [facility] [address] [place] [address] Rafaela Encarnacion, NURSERY HELPER-TECHNICIAN INVENTORY SPECIALIST [address] [place] [address] [facility] Start: 11-28-2022 Influenza vaccination Influenza Vacc ine (#1) [facility] Immunizations Immunization Date Immunization Notes Care Provider Fa vignesh 01-09-2022 influenza virus vacc ine, unspecified formulation Rosalva Welsh DO Work Phone: [facility] Payers Date Payer Category Payer Unknown [id number] 2022 Unknown BCBS BCBS [id number] [id number] 2022-Present [phone] [address] [place] [address] [id number] 1999 Unknown [id number] 1999 Unknown [id number] 1999 Unknown [id number] 1999 Unknown [id number] 1999 Unknown [id number] 1999 Unknown [id number] 1999 Unknown [id number] 1999 Unknown [id number] 1959 Self-pay 1959 Unknown [id number] Unknown [id number] Social History Date Type Detail Facility Start: 09-03-2022 Tobacco smoking stat [facility] Never smoked tobacco [facility] Start: 09-03-2022 Tobacco use and exposure Smokeless t obacco non-user [facility] Start: 04-22-2023 Alcohol intake Lifetime non-d mariza (finding) [facility] Start: 04-22-2023 History of Social function [facility] Start: 04-22-2023 Tobacco use panel [facility] Start: 2000 Sex Assigned At Female [facility] Start: 08-27-2022 Gender identity Identifies as female gender (finding) [facility] Start: 08-27-2022 Sexual orientation Heterosexual (fin ding) [facility] History of Present illness Narrative 05-05-2023 Gina Edouard LPN - 05/05/2023 8:10 AM EST Note Date & Type Note Facility 05-05-2023 History of Presen t illness Narrative Reason for Appointment: Patient ID: Loyda Adame is a 23 y.o. female who presents for Results Patient presents today via telephone call for a telehealth appointment. Patients Phone #: [phone] (mobile) Current Medications: has a current medication list which includes the following prescription(s): bupropion xl, cetirizine, duloxetine, fluocinonide, ibuprofen, ketoconazole, mirtazapine, norgestimate-ethinyl estradiol, phentermine, quetiapine, quetiapine, and vraylar. Medical History: Active Ambulatory Problems Diagnosis Date Noted Pelvic pain in female 04/10/2023 Resolved Ambulatory Problems Diagnosis Date Noted No Resolved Ambulatory Problems Past Medical History: Diagnosis Date Abnormal uterine bleeding (AUB) Anxiety and depression ([facility]) Anxiety disorder DUB (dysfunctional uterine bleeding) Dysmenorrhea Endometriosis Menorrhagia Menstrual irregularity Nonsmoker Protein S deficiency ([facility]) Family History Problem Relation Name Age of Onset Endometriosis Mother acute Melanoma Paternal Grandmother Heart disease Paternal Grandmother Social History Tobacco Use Smoking status: Never Smokeless tobacco: Never Substance Use Topics Alcohol use: Never Drug use: Never Past Surgical History: Procedure Laterality Date FOOT SURGERY 01/05/2015 toothpick removal LAPAROSCOPY DIAGNOSTIC / BIOPSY / ASPIRATION / LYSIS 10/25/2021 diagnostic - endometriosis PAP SMEAR 11/05/2020 negaitve TONSILLECTOMY 03/27/2010 WISDOM TOOTH EXTRACTION 01/26/2016 [place] teeth No Known Allergies Vitals: Estimated body mass index is 26.63 kg/m as calculated from the following: Height as of 12/08/22: 5' 5 . Weight as of 04/14/23: 160 lb. BP: Patient's last menstrual period was 03/28/2023. Assessment/Plan Encounter Diagnosis Name Primary? Encounter to discuss test results Pt states she is doing well- no further management. Ultrasound reviewed. Documented by Gina Edouard LPN on behalf of: Rosalva Welsh DO documented in this encounter [facility] Clinical Note 10-25-2021 Note Date & Type Note Facility 10-25-2021 Note OPERATIVE NOTE OPERATION DATE: 11/01/2021 PROCEDURE: Diagnostic laparoscopy with chromopertubation. PREOPERATIVE DIAGNOSIS: 1. Pelvic pain. 2. Possible tubal dysfunction. POSTOPERATIVE DIAGNOSIS: 1. Pelvic pain. 2. Possible tubal dysfunction. ANESTHESIA: General. SURGEON: Rosalva Welsh D.O. SAUSAGE MACHINE OPERATOR: DUC Sherman URINE OUTPUT: Yellow and clear. [...] to Recovery Room in stable condition [facility] Evaluation note Note Date & Type Note Facility Evaluation note Diagnosis Encounter to discuss test results Other specified counseling documented in this encounter [facility] Summary Purpose Family History No Family History Records FoundNo Family History Records FoundNo Family History Records Found Advance Directives No Advanced Directives Records FoundNo Advanced Directives Records FoundNo Advanced Directives Records Found Additional Source Comments INFORMATION SOURCE (unrecogn ized section and content) DATE CREATED AUTHOR 05/18/2019 [facility] DATE CREATED AUTHOR AUTHOR'S ORGANIZ ATION 07/20/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 [facility] [place] [address] PCP - General Family Medicine 09/03/22 FOR RECORDS PERTAINING TO PATIENTS WHO ARE [...] BE BASED ON THE PRIMARY CLINICAL RECORDS. [facility] [employer] [facility]. provides no warranty or guarantee of the accuracy or completeness of information in this document.
--- NOTE | 2023-05-25 18:02 | ED.DENTAL1 ---
HPI - Dental/Oral General Chief complaint: Dental/Oral Stated complaint: TOOTH PAIN Time Seen by Provider: 05/25/23 17:54 Source: patient Mode of arrival: walk-in Limitations: no limitations History of Present Illness HPI Narrative: To the ER after she was already evaluated by her dentist over the phone started on amoxicillin for dental pain and infection, the patient had already started taking amoxicillin and also taking ibuprofen and Tylenol, She is coming here for pain control Related Data Home Medications Medication Instructions Recorded Confirmed amoxicillin 500 mg capsule 500 mg PO Q8H 05/25/23 05/25/23 cetirizine 10 mg tablet 10 mg PO DAILY 05/25/23 05/25/23 duloxetine 60 mg capsule,delayed 60 mg PO DAILY 05/25/23 05/25/23 release quetiapine 50 mg tablet 100 mg PO DAILY 05/25/23 05/25/23 Allergies Allergy/AdvReac Type Severity Reaction Status Date / Time No Known Drug Allergies Allergy Verified 05/25/23 17:25 Review of Systems ROS Status of ROS 10 or more systems reviewed and unremarkable except as noted in history and below [facility] Social History Smoking status: Never smoker Exam Narrative Exam Narrative: Dental exam showed that the patient have multiple decayed tooth tooth #11 is totally decayed with the gum inflamed and the patient have a poor dental hygiene, Nurses notes and vital signs reviewed and patient is not hypoxic. General: Well-appearing and in no apparent distress. Skin: Warm, dry, no pallor noted. No rash. Head: Normocephalic, atraumatic. Neck: Supple, non-tender. Eye: Pupils are equal, round and EOMI. No scleral icterus. Ears, Nose, Mouth, and Throat: TM are clear, no nasal mucosal hypertrophy. Oral mucosa is moist, no posterior oropharynx erythema, uvula is mid-line Cardiovascular: Regular Rate and Rhythm without murmur, gallop or rub. Respiratory: No accessory muscle use or respiratory distress. Lungs are clear to auscultation, no wheezing, rales or rhonchi Chest Wall: no tenderness Back: No midline thoracic or lumbar vertebral tenderness. No CVA tenderness Musculoskeletal: normal ROM, no calf or popliteal tenderness, no lower extremity edema/swelling GI: Abdomen is soft, non-distended. Normal bowel sounds. No masses appreciated. No tenderness to palpation. No rebound, guarding, or rigidity noted. Neurological: A&O x4. No cranial nerve dysfunction observed. No truncal ataxia. Moves all extremities. Sensation intact. Psychiatric: Cooperative and interactive. Normal mood and affect. Constitutional Vital Signs, click to edit/add: Last Vital Signs Temp 98.9 F 05/25/23 17:21 Pulse 86 05/25/23 17:21 Resp 16 05/25/23 17:21 BP 150/98 H 05/25/23 17:21 Pulse Ox 98 05/25/23 17:21 O2 Del Method Room Air 05/25/23 17:21 Course Vital Signs Vital signs: Vital Signs Temperature 98.9 F 05/25/23 17:21 Pulse Rate 86 05/25/23 17:21 Respiratory Rate 16 05/25/23 17:21 Blood Pressure 150/98 H 05/25/23 17:21 Pulse Oximetry 98 05/25/23 17:21 Oxygen Delivery Method Room Air 05/25/23 17:21 Temperature 98.9 F 05/25/23 17:21 Pulse Rate 86 05/25/23 17:21 Respiratory Rate 16 05/25/23 17:21 Blood Pressure 150/98 H 05/25/23 17:21 Pulse Oximetry 98 05/25/23 17:21 Oxygen Delivery Method Room Air 05/25/23 17:21 MDM - Dental/Oral MDM Narrative Medical decision making narrative: The patient already taking amoxicillin as well as Tylenol ibuprofen right now with the fact that this is dental pain the patient will be covered with local pain medication to avoid exposing her to opiate The patient is to follow up with primary care physician in next 2-3 days or to return to the emergency department should any of the signs or symptoms worsen or new symptoms develop. The patient agrees with the following Diagnosis and Treatment plan and the patient will be discharged home. Discharge Plan Discharge Chief Complaint: Dental/Oral Clinical Impression: Toothache Patient Disposition: Home, Self-Care Time of Disposition Decision: 18:01 Condition: Good Prescriptions / Home Meds: No Action amoxicillin 500 mg capsule 500 mg PO Q8H cetirizine 10 mg tablet 10 mg PO DAILY duloxetine 60 mg capsule,delayed release(DR/EC) 60 mg PO DAILY quetiapine 50 mg tablet 100 mg PO DAILY Instructions: Toothache (ED) Stand Alone Forms: Portal Instructions Referrals: Shaw Jorgensen MD [Primary Care Provider] - 1 week
[2023-05-25] MEDS: BENZOCAINE 30 ML, lidocaine HCL 15 ML MM (18:08)
== END 2023-05-25 18:11 | disposition home or self-care (01) ==
PROVIDERS: Emergency Provider Emergency Medicine; PCP Family Medicine
DX: K08.89 Other specified disorders of teeth and supporting structures (principal)
CPT/HCPCS: 99282

== ENCOUNTER 2023-07-09 20:10 | Outpatient (OUT) | payer BC, SELFPAY ==
--- OUTSIDE RECORDS SUMMARY | 2023-07-09 20:14 | XMS_ITS | CCD ---
Author Organization [facility] Care Team Providers Care Trolley Operator Name Role Phone JASON ., DR [...] Unavailable AHSAN, DR NIKO Selby Consulting Unavailable Shaw Jorgensen MD Primary Care Provider [phone] ROSALVA WELSH Attending Unavailable RAFAELA ENCARNACION Attending Unavailable RAFAELA ENCARNACION Attending Unavailable Medications Current Medications Medication Drug Class(es) Dates [...] on 5 min before rinsing 120 mL 04/23/2023 05/23/2023 Active QUEtiapine 50 mg oral [...] PLUSon 0 07-17-2022 QuantiFERON Criteria Comment Normal [facility] Comment on above: Result Comment: [...] test. Performed By: #### Q NTTB #### [facility] [address] [place] [address] Dr. Elie Milan QuantiFERON Incubation Incubation performed. Normal [facility] Comment on above: Performed By: #### Q NTTB #### [facility] [address] [place] [address] Dr. Elie Milan QuantiFERON Mitogen Value >10.00 Normal [facility] Comment on above: Performed By: #### Q NTTB #### [facility] [address] [place] [address] Dr. Elie Milan QuantiFERON Nil Value 0.05 IU/mL Normal [facility] Comment on above: Performed By: #### Q NTTB #### [facility] [address] [place] [address] Dr. Elie Milan QuantiFERON TB1 Ag Value 0.06 IU/mL Normal [facility] Comment on above: Performed By: #### Q NTTB #### [facility] [address] [place] [address] Dr. Elie Milan QuantiFERON TB2 Ag Value 0.07 IU/mL Normal [facility] Comment on above: Performed By: #### Q NTTB #### [facility] [address] [place] [address] Dr. Elie Milan QuantiFERON-TB Gold Plus Negative Normal Negative [facility] Comment on above: Result Comment: No r esponse to M tuberculosis antigens detected. Infection with M tuberculosis is unlikely, but high risk individuals should be considered for additional testing (ATS/IDSA/CDC Clinical Practice Guidelines, 2017). The reference range is an Antigen minus Nil result of <0.35 IU/mL. Chemiluminescence immunoassay methodology Performed By: #### Q NTTB #### [facility] [address] [place] [address] Dr. Elie Milan HEPATITIS B SURFACE ANTIBODY , QUANTon 07-16-2022 Hepatitis B Surf AB Quant <3.1 Critically low Immunity>9.9 [facility] Comment on above: Result Comment: Stat us of Immunity Anti-HBs Level Inconsistent with Immunity 0.0 - 9.9 Consistent with Immunity >9.9 Performed By: #### H EPBSRF #### [facility] [address] [place] [address] Dr. Elie Milan MMR IMMUNITYon 07-16-2022 Mumps Abs, IgG 261.0 AU/mL Normal Immune >10.9 [facility] Comment on above: Result Comment: Nega tive <9.0 Equivocal 9.0 - 10.9 Positive >10.9 A positive result generally indicates past exposure to Mumps virus or previous vaccination. Performed By: #### M MRIMMU #### [facility] [address] [place] [address] Dr. Elie Milan Rubella Antibodies, IgG 3.97 index Normal Immune >0.99 [facility] Comment on above: Result Comment: Non- immune <0.90 Equivocal 0.90 - 0.99 Immune >0.99 Performed By: #### M MRIMMU #### [facility] [address] [place] [address] Dr. Elie Milan Rubeola Ab, IgG >300.0 Normal Immune >16.4 [facility] Comment on above: Result Comment: Nega tive <13.5 Equivocal 13.5 - 16.4 Positive >16.4 Presence of antibodies to Rubeola is presumptive evidence of immunity except when acute infection is suspected. Performed By: #### M MRIMMU #### [facility] [address] [place], [place] [address] Dr. Elie Milan VARICELLA IGG ABon 3 Varicella Zoster IgG 1549 index Normal Immune >165 [facility] Comment on above: Result Comment: Nega tive <135 Equivocal 135 - 165 Positive >165 A positive result generally indicates exposure to the pathogen or administration of specific immunoglobulins, but it is not indication of active infection or stage of disease. Performed By: #### V ARCEL #### [facility] [address] [place], [place] [address] Dr. Elie Milan US PELVIS AND TRANSVAGon [...] by: NIKO FOREMAN Date: 2022-02-04 20:13 Normal [facility] HCG-BETA SUBUNIT QUANTon hCG,Beta Subunit,Qnt,Serum <1 Normal [facility] Comment on above: Result Comment: Fema le (Non-) 0 - 5 (Postmenopausal) 0 - 8 . Female () Weeks of Gestation 3 6 - 71 4 10 - 750 5 585 - 4338 6 839 - 40701 7 2951 -048476 8 02443 -771784 9 90629 -253648 10 82237 -524250 12 08513 -952373 14 52924 - 07996 15 92139 - 06489 16 6125 - 44072 17 0250 - 45827 18 7653 - 41711 Tanesha ECLIA methodology Performed By: #### H CGSUB #### [facility] [address] [place] [address] Dr. Elie Milan CBC AUTO DIFFon 10-23-2021 BASO # 0.1 103/ul Normal 0.0-0.1 [facility] Comment on above: Performed By: #### C BC #### [facility] [address] [place] [address] Dr. Elie Milan Basophils/100 WBC (Bld) 1.1 % Normal 0.2-2.0 [facility] Comment on above: Performed By: #### C BC #### [facility] [address] [place] [address] Dr. Elie Milan EO # 0.3 103/ul Normal 0.0-0.7 [facility] Comment on above: Performed By: #### C BC #### [facility] [address] [place] [address] Dr. Elie Milan Eosinophils/100 WBC (Bld) 4.6 % Normal 0.9-7.0 [facility] Comment on above: Performed By: #### C BC #### [facility] [address] [place] [address] Dr. Elie Milan Erythrocyte distribution width (RBC) [Ratio] 11.9 % Normal 11.0-15.0 [facility] Comment on above: Performed By: #### C BC #### [facility] [address] [place] [address] Dr. Elie Milan Hematocrit (Bld) [Volume fraction] 41.0 % Normal 36.0-48.0 [facility] Comment on above: Performed By: #### C BC #### [facility] [address] [place] [address] Dr. Elie Milan Hemoglobin (Bld) [Mass/Vol] 14.0 g/dL Normal 12.0-16.0 [facility] Comment on above: Performed By: #### C BC #### [facility] [address] [place] [address] Dr. Elie Milan IG # 0.02 10e3/ul Normal 0.00-0.03 [facility] Comment on above: Performed By: #### C BC #### [facility] [address] [place] [address] Dr. Elie Milan IG % 0.3 % Normal 0.0-0.5 [facility] Comment on above: Performed By: #### C BC #### [facility] [address] [place] [address] Dr. Elie Milan LYMPH # 1.3 103/ul Normal 1.2-3.8 [facility] Comment on above: Performed By: #### C BC #### [facility] [address] [place] [address] Dr. Elie Milan Lymphocytes/100 WBC (Bld) 17.9 % Critically low 20.5-60.0 [facility] Comment on above: Performed By: #### C BC #### [facility] [address] [place] [address] Dr. Elie Milan MANUAL DIFF REQ NO Normal [facility] Comment on above: Performed By: #### C BC #### [facility] [address] [place] [address] Dr. Elie Milan MCH (RBC) [Entitic mass] 30.9 pg Normal 26.7-34.0 [facility] Comment on above: Performed By: #### C BC #### [facility] [address] [place] [address] Dr. Elie Milan MCHC (RBC) [Mass/Vol] 34.1 g/dL Normal 29.9-35.2 [facility] Comment on above: Performed By: #### C BC #### [facility] [address] [place] [address] Dr. Elie Milan MCV (RBC) [Entitic vol] 90.5 fL Normal 81.0-99.0 [facility] Comment on above: Performed By: #### C BC #### [facility] [address] [place] [address] Dr. Elie Milan MONO # 0.5 103/ul Normal 0.3-0.8 [facility] Comment on above: Performed By: #### C BC #### [facility] [address] [place] [address] Dr. Elie Milan Monocytes/100 WBC (Bld) 7.3 % Normal 1.7-12.0 [facility] Comment on above: Performed By: #### C BC #### [facility] [address] [place] [address] Dr. Elie Milan NEUT # 4.8 103/ul Normal 1.4-6.5 [facility] Comment on above: Performed By: #### C BC #### [facility] [address] [place] [address] Dr. Elie Milan Neutrophils/100 WBC (Bld) 68.8 % Normal 43.0-75.0 [facility] Comment on above: Performed By: #### C BC #### [facility] [address] [place] [address] Dr. Elie Milan Platelet mean volume (Bld) [Entitic vol] 9.9 fL Normal 9.5-13.5 [facility] Comment on above: Performed By: #### C BC #### [facility] [address] [place] [address] Dr. Elie Milan PLT 223 103/ul Normal 150-450 [facility] Comment on above: Performed By: #### C BC #### [facility] [address] [place] [address] Dr. Elie Milan RBC 4.53 106/ul Normal 4.20-5.40 [facility] Comment on above: Performed By: #### C BC #### [facility] [address] [place] [address] Dr. Elie Milan WBC 7.0 103/ul Normal 4.0-11.0 [facility] Comment on above: Performed By: #### C BC #### [facility] [address] [place] [address] Dr. Elie Milan HCG-BETA SUBUNIT QUANTon hCG,Beta Subunit,Qnt,Serum <1 Normal [facility] Comment on above: Result Comment: Fema le (Non-) 0 - 5 (Postmenopausal) 0 - 8 . Female () Weeks of Gestation 3 6 - 71 4 10 - 750 5 217 - 7138 6 693 - 00242 7 0644 -549433 8 02226 -784903 9 05479 -223577 54486 -196978 12 98680 -444943 14 12089 - 71928 15 51360 - 17847 16 9218 - 77191 17 0821 - 47105 18 1158 - 76957 Tanesha ECLIA methodology Performed By: #### H CGSUB #### [facility] [address] [place] [address] Dr. Elie Milan US PELVIS TRANSVAGon 022 [...] by: NIKO FOREMAN Date: 2021-10-08 16:31 Normal [facility] CNOVSPon 05-17-2019 CNOVSP Visit (SP) Office (IFTIKHAR) LOYDA ADAME ([id number]) 2000 F Date Time Provider Department 05/17/19 10:45 AM KARAMLOU, FORD (MD) HEMASA During your visit today, we recorded the following information about you: Temperature Pulse Respiration Blood pressure 98.2 degrees 86/minute 18/minute 121/71 Weight Height 56.8 kg 1.632 m Ford Morgan MD 05/17/2019 2:07 PM Signed PATIENT NAME: Loyda Adame CLINIC NO.: [id number] ATTENDING PHYSICIAN: Ford Morgan MD DATE OF SERVICE: May 17, 2019 This document has been created with the use of voice recognition technology. It may contain inaccuracies, misspellings, inaccurate syntax or inappropriate word context that escaped review. Dear Dr. Ford Morgan MD [address] [place] [address] here is an update on a follow [...] do not hesitate to contact me at [phone]. Ford Morgan MD Hematology/Medical Oncology [facility] CC: Shaw Jorgensen Referring Provider: FORD MORGAN () [[id number]] Allergies As of Date: 05/17/2019 (No Known Allergies) Date Reviewed: 05/17/2019 Reviewed by: Ford Morgan - Fully Assessed Reason for Visit: congenital [...] Status:Closed by FORD MORGAN MD on 05/17/19 [facility] PROGRESSon 05-17-2019 PROGRESS HNO ID: [id number] Author: Ford Morgan Service: ? Author Type: Physician Type: Progress Notes Filed: 05/17/2019 2:07 PM Note Text: PATIENT NAME: Loyda Adame CLINIC NO.: [id number] ATTENDING PHYSICIAN: Ford Morgan MD DATE OF SERVICE: May 17, 2019 This document has been created with the use of voice recognition technology. It may contain inaccuracies, misspellings, inaccurate syntax or inappropriate word context that escaped review. Dear Dr. Ford Morgan MD [address] [place] [address] here is an update on a follow [...] do not hesitate to contact me at [phone]. Ford Morgan MD Hematology/Medical Oncology [facility] CC: Shaw Jorgensen Normal [facility] APTTon 05-10-2019 aPTT Coag (Bld) [Time] 27.1 s Normal 23.0-32.4 [facility] Comment on above: Result Comment: Unfr actionated [...] laboratory APTT reagent in use throughout the [facility]. Performed By: #### P RSCLT, PTT, PT, PRCFUN #### [facility] [address] [place], [place] [id number] Protein C Functionalon 05-10 Protein [Mass/Vol] 89 % Normal 76-147 [facility] Comment on above: Performed By: #### P RSCLT, PTT, PT, PRCFUN #### [facility] [address] [place], [place] [id number] Protein S Clottableon 2019 Protein S Clottable 58 % Low 59-131 [facility] Comment on above: Result Comment: Resu lt [...] #### P RSCLT, PTT, PT, PRCFUN #### [facility] [address], [place] [address] Protimeon 05-10-2019 PT Coag (PPP) [Time] 10.2 s Normal 9.7-13.0 [facility] Comment on above: Performed By: #### P RSCLT, PTT, PT, PRCFUN #### [facility] [address], [place] [id number] PT Coag (PPP) [Time] 0.9 s Normal 0.9-1.3 [facility] Comment on above: Result Comment: Maria D min K Antagonist (VKA) Therapeutic Range: INR 2 to 3 (Target INR of 2.5) Note: For patients treated with VKA drugs, such as warfarin, the [place] [employer] 2012 Guideline recommends [...] GH, et al. Chest 2012, 141:7S-47S Deo GARLAND et al. JACC 2017, 70: 252-289 Performed By: #### P RSCLT, PTT, PT, PRCFUN #### [facility] [address] [place], [place] [address] CNOVSPon 04-12-2019 CNOVSP Visit (SP) Office (HEMASA) LOYDA ADAME ([id number]) 2000 F Date Time Provider Department 04/12/19 4:15 PM FORD MORGAN) HEMASA During your visit today, we recorded the following information about you: Temperature Pulse Respiration Blood pressure 97.8 degrees 90/minute 18/minute 119/74 Weight Height 56.7 kg 1.632 m Ford Morgan MD 04/12/2019 4:48 PM Signed PATIENT NAME: Loyda Adame CLINIC NO.: [id number] ATTENDING PHYSICIAN: Ford Morgan MD DATE OF [...] below. Ford Morgan M.D. 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] Order(s):ACTIVATED PTT [SQPTT] Order #: [id number] FUTURE PROTHROMBIN TIME/PT [SQPT] Order #: [id number] FUTURE TUBES - DRAW EXTRA [SQXTUBE] Order #: [id number] FUTURE PROTEIN C FUNCT [SQPRCFUN] Order #: [id number] FUTURE PROTEIN S CLOTTABLE [SQPRSCLT] Order #: [id number] FUTURE Follow-up and Disposition History Recorded Prescriptions as of 04/12/2019 Sig: NORGESTIMATE 0.25 MG-ETHINYL * Take 1 tablet by mouth once d* Problem List As Of Date: 04/12/2019 (None) Encounter Status:Closed by FORD MORGAN MD on 04/12/19 Normal [facility] PROGRESSon 04-12-2019 PROGRESS HNO ID: [id number] Author: Ford Morel) Cathy Service: ? Author Type: Physician Type: Progress Notes Filed: 04/12/2019 4:48 PM Note Text: PATIENT NAME: Loyda Adame [facility] NO.: [id number] ATTENDING PHYSICIAN: Ford Morgan MD DATE OF [...] allowing me to participate in Miss Loyda celaya, if there are any questions or concerns please do not hesitate to contact me at the number below. Ford Morgan M.D. Hematology/Medical Oncology [facility] [phone] CC: Normal [facility] Encounters Encounter Date Encounter Type Care Provider Facility Start: 05-19-2023 End: 05-19-2023 ambulatory RAFAELA Wright FELTER Not Available Start: 05-05-2023 End: 05-05-2023 Phys/qhp telephone evaluation [...] laboratory examination DR ROSALVA WELSH . [facility] Start: 10-25-2021 End: 10-25-[address] ROSALVA WELSH . Facility:[facility] Start: 10-23-2021 End: 10-24-[address] ROSALVA WELSH . Facility:[facility] Start: 10-23-2021 End: 10-24-2021 Encounter for preprocedural laboratory examination DR ROSALVA WELSH . Facility:[facility] Start: 10-22-2021 Encounter for other preprocedural examination DR ROSALVA WELSH . [facility] Start: 10-17-2021 End: 10-18-[address] ROSALVA [...] EDT Office Visit [facility] [address] [address] Rosalva Welsh, DO [address] [place] [address] [facility] Start: 05-11-2023 End: 05-11-2023 Patient encounter procedure 05/11/2023 4:05 PM EST Office Visit [facility] [address] [place] [phone] Rafaela Encarnacion, COMPUTER PROGRAMMING SUPERVISOR-BREAD PAN GREASER [address] [place] [address] [facility] Start: 11-28-2022 Influenza vaccination Influenza Vacc ine (#1) [facility] Immunizations Immunization Date Immunization Notes Care Provider [facility] 01-09-2022 influenza virus vacc ine, unspecified formulation Rosalva Welsh DO Work Phone: [facility] Payers Date Payer Category Payer Unknown BCBS BCBS [id number] [id number] 2022-Present [phone] [address] [place] [address] [id number] 2022 Unknown [id number] 2000 Unknown [id number] 2000 Unknown [id number] [id number] 2000 Unknown [id number] [id number] 1999 Unknown [id number] [id number] 1999 Unknown [id number] [id number] 1999 Unknown [id number] 1999 Unknown [id number] [id number] 1999 Unknown [id number] [id number] 1999 Unknown [id number] [id number] 1960 Self-pay 1960 Unknown [id number] Unknown [id number] Social History Date Type Detail Facility Start: 09-03-2022 Tobacco smoking stat [facility] Never smoked tobacco [facility] Start: [...] Start: 08-27-2022 Sexual orientation Heterosexual (fin ding) [facility] History of Present illness Narrative 05-05-2023 Gina Edouard LPN - 05/05/2023 8:10 AM EST Note Date & Type Note Facility 05-05-2023 History of Presen t illness Narrative Reason for Appointment: Patient ID: Loyda Adame is a 23 y.o. female who presents for Results Patient presents today via telephone call for a telehealth appointment. Patients Phone #: [phone] (mobile) Current Medications: has a current medication list which includes the following prescription(s): bupropion xl, cetirizine, duloxetine, fluocinonide, ibuprofen, ketoconazole, mirtazapine, norgestimate-ethinyl estradiol, phentermine, quetiapine, quetiapine, and vraylar. Medical History: Active Ambulatory Problems Diagnosis Date Noted Pelvic pain in female 04/10/2023 Resolved Ambulatory Problems Diagnosis Date Noted No Resolved Ambulatory Problems Past Medical History: Diagnosis Date Abnormal uterine bleeding (AUB) Anxiety and depression ([facility]) Anxiety disorder DUB (dysfunctional uterine bleeding) Dysmenorrhea Endometriosis Menorrhagia Menstrual irregularity Nonsmoker Protein S deficiency ([facility]) Family History Problem Relation Name Age of [...] negaitve TONSILLECTOMY 03/27/2010 WISDOM TOOTH EXTRACTION 01/26/2016 [place] teeth No Known Allergies Vitals: Estimated body [...] Rosalva Welsh DO documented in this encounter [facility] Clinical Note 10-25-2021 Note Date & Type Note Facility 10-25-2021 Note OPERATIVE NOTE OPERATION DATE: 11/01/2021 PROCEDURE: Diagnostic laparoscopy with chromopertubation. PREOPERATIVE DIAGNOSIS: 1. Pelvic pain. 2. Possible tubal dysfunction. POSTOPERATIVE DIAGNOSIS: 1. Pelvic pain. 2. Possible tubal dysfunction. ANESTHESIA: General. SURGEON: Rosalva Welsh D.O. BINDERY MACHINE FEEDER OFFBEARER: DUC [place] URINE OUTPUT: Yellow and clear. [...] to Recovery Room in stable condition [facility] Evaluation note Note Date & Type Note [...] section and content) DATE CREATED AUTHOR 05/18/2019 [facility] DATE CREATED AUTHOR AUTHOR'S ORGANIZ ATION 07/20/2022 [facility] DATE CREATED AUTHOR AUTHOR'S ORGANIZ ATION 05/26/2023 [facility] EPIC Reason for Visit (unrecogniz ed section and content) Reason Comments Results Care Teams (unrecognized sec tion and content) Trolley Operator Relationship Specialty Start Date End Date Shaw Jorgensen MD [address] [place] [address] PCP - General Family Medicine 09/03/22 FOR [...] BE BASED ON THE PRIMARY CLINICAL RECORDS. [facility] [employer] [facility]. provides no warranty or guarantee of the accuracy or completeness of information in this document.
== END 2023-07-09 20:11 | disposition home or self-care (01) ==
LOC: SLEEP 20:10
PROVIDERS: PCP Family Medicine; Visit Provider Family Medicine
DX: G47.33 Obstructive sleep apnea (adult) (pediatric) (principal); G47.00 Insomnia, unspecified
CPT/HCPCS: 95810

== ENCOUNTER 2023-08-03 10:47 | Outpatient (OUT) | payer BC, SELFPAY ==
[2023-08-03 11:13] LABS: Basophils Absolute Auto 0.1 10^3/uL (0.0-0.1); Basophils Percent Auto 0.9 % (0.2-2.0); Eosinophils Absolute Auto 0.1 10^3/uL (0.0-0.7); Eosinophils Percent Auto 1.6 % (0.9-7.0); Hematocrit 39.6 % (36.0-48.0); Hemoglobin 13.1 g/dL (12.0-16.0); Immature Granulocytes Abs Auto 0.01 10^3/uL (0.00-0.03); Immature Granulocytes Pct Auto 0.1 % (0.0-0.5); Lymphocytes Absolute Auto 1.9 10^3/uL (1.2-3.8); Lymphocytes Percent Auto 24.9 % (20.5-60.0); Mean Corpuscular HGB Conc 33.1 g/dL (29.9-35.2); Mean Corpuscular Volume 93.8 fL (81.0-99.0); Mean Platelet Volume 9.5 fL (9.5-13.5); Monocytes Absolute Auto 0.5 10^3/uL (0.3-0.8); Monocytes Percent Auto 6.3 % (1.7-12.0); Neutrophils Percent Auto 66.2 % (43.0-75.0); Platelet Count 279 10^3/uL (150-450); Red Blood Count 4.22 10^6/uL (4.20-5.40); Red Cell Distribution Width 12.3 % (11.0-15.0); White Blood Count 7.6 10^3/uL (4.0-11.0)
[2023-08-03 11:24] LABS: INR 1.02; Partial Thromboplastin Time 31.4 sec (22.3-36.2); Prothrombin Time 10.8 sec (9.0-11.6)
[2023-08-03 11:41] LABS: Estimated Average Glucose 82 mg/dL; Glycohemoglobin A1C 4.5 % (4.5-6.2)
[2023-08-03 11:54] LABS: HCG Quantitative <1 mIU/mL; Thyroid Stimulating Hormone 2.553 uIU/mL (0.358-3.740)
[2023-08-03 12:26] LABS: Free T4 0.95 ng/dL (0.76-1.46)
== END 2023-08-03 10:48 | disposition home or self-care (01) ==
LOC: LAB 10:49
PROVIDERS: PCP Family Medicine; Visit Provider Physician Assistant
DX: N92.0 Excessive and frequent menstruation with regular cycle (principal)
CPT/HCPCS: 36415; 83036; 84439; 84443; 84702; 85025; 85610; 85730

== ENCOUNTER 2023-08-05 07:58 | Outpatient (OUT) | payer BC, SELFPAY ==
--- NOTE | 2023-08-05 08:00 | US_ITS ---
The [address] [address] Patient Name: DONALD ADAME MRN: [id number] date: 2000 Sex: F Assigned Patient Location: US Current Patient Location: US Accession/Order Number: [id number] Exam Date: 08/05/2023 08:20 Report Date: 08/05/2023 09:14 At the request of: PATRICIA PEREZ Procedure: US pelvis w/ transvaginal EXAMINATION: US pelvis w/ transvaginal HISTORY: Pain Of Ovary N94.89, Pain In Female R10.2 COMPARISON: 04/15/2023 FINDINGS: Transabdominal and transvaginal images The uterus is normal in size, contour and echotexture measuring 7.7 x 3.4 x 4.7 cm. No focal myometrial mass. The endometrium measures 1.4 cm, correlate with the menstrual cycle. The right ovary is normal measuring 3.7 x 2.0 x 2.0 cm. Normal color and Doppler flow The left is normal measuring 2.3 x 2.8 x 2.2 cm. Normal color Doppler flow No free fluid US/US pelvis w/ transvaginal IMPRESSION: No acute abnormality Electronically authenticated by: NIKO FOREMAN Date: 08/05/2023 09:14
--- OUTSIDE RECORDS SUMMARY | 2023-08-05 08:17 | XMS_ITS | CCD ---
Author Organization [facility] Care Team Providers Care Swimming Coach Or Instructor Name Role Phone JASON ., DR BLACKWELL [...] Unavailable Shaw Jorgensen MD Primary Care Provider [phone] ROSALVA WELSH Attending Unavailable RAFAELA ENCARNACION Attending Unavailable RAFAELA ENCARNACION Attending Unavailable ROSALVA WELSH Attending Unavailable Medications Current Medications Medication Drug [...] PLUSon 0 07-17-2022 QuantiFERON Criteria Comment Normal [facility] Comment on above: Result Comment: [...] test. Performed By: #### Q NTTB #### [facility] [address] [place] [address] Dr. Elie Milan QuantiFERON Incubation Incubation performed. Normal [facility] Comment on above: Performed By: #### Q NTTB #### [facility] [address] [place] [address] Dr. Elie Milan QuantiFERON Mitogen Value >10.00 Normal [facility] Comment on above: Performed By: #### Q NTTB #### [facility] [address] [place] [address] Dr. Elie Milan QuantiFERON Nil Value 0.05 IU/mL Normal [facility] Comment on above: Performed By: #### Q NTTB #### [facility] [address] [place] [address] Dr. Elie Milan QuantiFERON TB1 Ag Value 0.06 IU/mL Normal [facility] Comment on above: Performed By: #### Q NTTB #### [facility] [address] [place] [address] Dr. Elie Milan QuantiFERON TB2 Ag Value 0.07 IU/mL Normal [facility] Comment on above: Performed By: #### Q NTTB #### [facility] [address] [place] [address] Dr. Elie Milan QuantiFERON-TB Gold Plus Negative Normal Negative [facility] Comment on above: Result Comment: No r esponse to M tuberculosis antigens detected. Infection with M tuberculosis is unlikely, but high risk individuals should be considered for additional testing (ATS/IDSA/CDC Clinical Practice Guidelines, 2017). The reference range is an Antigen minus Nil result of <0.35 IU/mL. Chemiluminescence immunoassay methodology Performed By: #### Q NTTB #### [facility] [address] [place] [address] Dr. Elie Milan HEPATITIS B SURFACE ANTIBODY , QUANTon 07-16-2022 Hepatitis B Surf AB Quant <3.1 Critically low Immunity>9.9 [facility] Comment on above: Result Comment: Stat us of Immunity Anti-HBs Level Inconsistent with Immunity 0.0 - 9.9 Consistent with Immunity >9.9 Performed By: #### H EPBSRF #### [facility] [address] [place] [address] Dr. Elie Milan MMR IMMUNITYon 07-16-2022 Mumps Abs, IgG 261.0 AU/mL Normal Immune >10.9 [facility] Comment on above: Result Comment: Nega tive <9.0 Equivocal 9.0 - 10.9 Positive >10.9 A positive result generally indicates past exposure to Mumps virus or previous vaccination. Performed By: #### M MRIMMU #### [facility] [address] [place] [address] Dr. Elie Milan Rubella Antibodies, IgG 3.97 index Normal Immune >0.99 [facility] Comment on above: Result Comment: Non- immune <0.90 Equivocal 0.90 - 0.99 Immune >0.99 Performed By: #### M MRIMMU #### [facility] [address] [place] [address] Dr. Elie Milan Rubeola Ab, IgG >300.0 Normal Immune >16.4 [facility] Comment on above: Result Comment: Nega tive <13.5 Equivocal 13.5 - 16.4 Positive >16.4 Presence of antibodies to Rubeola is presumptive evidence of immunity except when acute infection is suspected. Performed By: #### M MRIMMU #### [facility] [address] [place] [address] [address] Elie Milan VARICELLA IGG ABon 3 Varicella Zoster IgG 1549 index Normal Immune >165 [facility] Comment on above: Result Comment: Nega tive <135 Equivocal 135 - 165 Positive >165 A positive result generally indicates exposure to the pathogen or administration of specific immunoglobulins, but it is not indication of active infection or stage of disease. Performed By: #### V ARCEL #### [facility] [address] [place] [address] Elie Milna US PELVIS AND TRANSVAGon US PELVIS AND [...] NIKO FOREMAN Date: 2022-02-04 20:13 Normal [facility] HCG-BETA SUBUNIT QUANTon hCG,Beta Subunit,Qnt,Serum <1 Normal [facility] Comment on above: Result Comment: Fema le (Non-) 0 - 5 (Postmenopausal) 0 - 8 . Female () Weeks of Gestation 3 6 - 71 4 10 - 750 5 582 - 6902 6 535 - 25231 7 6592 [phone] 8 16275 -330897 9 72886 -359419 10 24525 -561016 12 40775 -655608 14 96025 - 25408 15 39367 - 29773 16 9645 - 88227 17 3219 - 17873 18 8310 - 72681 [employer] ECLIA methodology Performed By: #### H CGSUB #### [facility] [address] [address] [address] Elie Milan CBC AUTO DIFFon 10-23-2021 BASO # 0.1 103/ul Normal 0.0-0.1 [facility] Comment on above: Performed By: #### C BC #### [facility] [address] [address] [address] Elie Milan Basophils/100 WBC (Bld) 1.1 % Normal 0.2-2.0 [facility] Comment on above: Performed By: #### C BC #### [facility] [address] [place] [address] Dr. Elie Milan EO # 0.3 103/ul Normal 0.0-0.7 [facility] Comment on above: Performed By: #### C BC #### [facility] [address] [place] [address] Dr. Elie Milan Eosinophils/100 WBC (Bld) 4.6 % Normal 0.9-7.0 [facility] Comment on above: Performed By: #### C BC #### [facility] [address] [address] [address] Elie Milan Erythrocyte distribution width (RBC) [Ratio] 11.9 % Normal 11.0-15.0 [facility] Comment on above: Performed By: #### C BC #### [facility] [address] [place] [address] Dr. Elie Milan Hematocrit (Bld) [Volume fraction] 41.0 % Normal 36.0-48.0 [facility] Comment on above: Performed By: #### C BC #### [facility] [address] [address] [address] Elie Milan Hemoglobin (Bld) [Mass/Vol] 14.0 g/dL Normal 12.0-16.0 [facility] Comment on above: Performed By: #### C BC #### [facility] [address] [address] [address] Elie Milan IG # 0.02 10e3/ul Normal 0.00-0.03 [facility] Comment on above: Performed By: #### C BC #### [facility] [address] [place] [address] Dr. Elie Milan IG % 0.3 % Normal 0.0-0.5 [facility] Comment on above: Performed By: #### C BC #### [facility] [address] [place] [address] Dr. Elie Milan LYMPH # 1.3 103/ul Normal 1.2-3.8 [facility] Comment on above: Performed By: #### C BC #### [facility] [address] [place] [address] Dr. Elie Milan Lymphocytes/100 WBC (Bld) 17.9 % Critically low 20.5-60.0 [facility] Comment on above: Performed By: #### C BC #### [facility] [address] [place] [address] Dr. Elie Milan MANUAL DIFF REQ NO Normal [facility] Comment on above: Performed By: #### C BC #### [facility] [address] [place] [address] Dr. Elie Milan MCH (RBC) [Entitic mass] 30.9 pg Normal 26.7-34.0 [facility] Comment on above: Performed By: #### C BC #### [facility] [address] [place] [address] Dr. Elie Milan MCHC (RBC) [Mass/Vol] 34.1 g/dL Normal 29.9-35.2 [facility] Comment on above: Performed By: #### C BC #### [facility] [address] [place] [address] Dr. Elie Milan MCV (RBC) [Entitic vol] 90.5 fL Normal 81.0-99.0 [facility] Comment on above: Performed By: #### C BC #### [facility] [address] [place] [address] Dr. Elie Milan MONO # 0.5 103/ul Normal 0.3-0.8 [facility] Comment on above: Performed By: #### C BC #### [facility] [address] [place] [address] Dr. Elie Milan Monocytes/100 WBC (Bld) 7.3 % Normal 1.7-12.0 [facility] Comment on above: Performed By: #### C BC #### [facility] [address] [place] [address] Dr. Elie Milan NEUT # 4.8 103/ul Normal 1.4-6.5 [facility] Comment on above: Performed By: #### C BC #### [facility] [address] [place] [address] Dr. Elie Milan Neutrophils/100 WBC (Bld) 68.8 % Normal 43.0-75.0 [facility] Comment on above: Performed By: #### C BC #### [facility] [address] [place] [address] Dr. Elie Milan Platelet mean volume (Bld) [Entitic vol] 9.9 fL Normal 9.5-13.5 [facility] Comment on above: Performed By: #### C BC #### [facility] [address] [place] [address] Dr. Elie Milan PLT 223 103/ul Normal 150-450 [facility] Comment on above: Performed By: #### C BC #### [facility] [address] [place] [address] Dr. Elie Milan RBC 4.53 106/ul Normal 4.20-5.40 [facility] Comment on above: Performed By: #### C BC #### [facility] [address] [place] [address] Dr. Elie Milan WBC 7.0 103/ul Normal 4.0-11.0 [facility] Comment on above: Performed By: #### C BC #### [facility] [address] [place] [address] Dr. Elie Milan HCG-BETA SUBUNIT QUANTon hCG,Beta Subunit,Qnt,Serum <1 Normal [facility] Comment on above: Result Comment: Fema le (Non-) 0 - 5 (Postmenopausal) 0 - 8 . Female () Weeks of Gestation 3 6 - 71 4 10 - 750 5 389 - 3101 6 496 - 89267 7 2155 -393660 8 19187 -729809 9 42898 -218036 10 67846 -673968 12 57602 -308851 14 06530 - 20085 15 65416 - 44350 16 6297 - 46755 17 6034 - 09511 18 1489 - 30910 [employer] ECLIA methodology Performed By: #### H CGSUB #### [facility] [address] [place] [address] Dr. Elie Milan US PELVIS TRANSVAGon 022 [...] by: NIKO FOREMAN Date: 2021-10-08 16:31 Normal [facility] CNOVSPon 05-17-2019 CNOVSP Visit (SP) Office ([facility]) LOYDA ADAME ([id number]) 2000 F Date Time Provider Department 05/17/19 10:45 AM FORD MORGAN) IFTIKHAR During your visit today, we recorded the following information about you: Temperature Pulse Respiration Blood pressure 98.2 degrees 86/minute 18/minute 121/71 Weight Height 56.8 kg 1.632 m Ford Morgan MD 05/17/2019 2:07 PM Signed PATIENT NAME: Loyda Adame CLINIC NO.: [id number] ATTENDING PHYSICIAN: Ford Morgan MD DATE OF SERVICE: May 17, 2019 This document has been created with the use of voice recognition technology. It may contain inaccuracies, misspellings, inaccurate syntax or inappropriate word context that escaped review. Dear Dr. Ford Morgan MD [address] [place] [address] here is an update on a follow [...] do not hesitate to contact me at [phone]. Ford Morgan MD Hematology/Medical Oncology [facility] CC: Shaw Jorgensen Referring Provider: FORD MORGAN) [[id number]] Allergies As of Date: 05/17/2019 (No Known [...] Status:Closed by FORD MORGAN MD on 05/17/19 Normal [facility] PROGRESSon 05-17-2019 PROGRESS HNO ID: [id number] Author: Ford Morel) Cathy Service: ? Author Type: Physician Type: Progress Notes Filed: 05/17/2019 2:07 PM Note Text: PATIENT NAME: Loyda Adame [facility] NO.: [id number] ATTENDING PHYSICIAN: Ford Morgan MD DATE OF SERVICE: May 17, 2019 This document has been created with the use of voice recognition technology. It may contain inaccuracies, misspellings, inaccurate syntax or inappropriate word context that escaped review. Dear Dr. Ford Morgan MD [address] [place] [address] here is an update on a follow [...] do not hesitate to contact me at [phone]. Ford Morgan MD Hematology/Medical Oncology [facility] CC: Shaw Jorgensen Normal [facility] APTTon 05-10-2019 aPTT Coag (Bld) [Time] 27.1 s Normal 23.0-32.4 [facility] Comment on above: Result Comment: Unfr [...] laboratory APTT reagent in use throughout the [facility]. Performed By: #### P RSCLT, PTT, PT, PRCFUN #### [facility] [employer] [address] [place], [place] [address] Protein C Functionalon 05-10 Protein [Mass/Vol] 89 % Normal 76-147 [facility] Comment on above: Performed By: #### P RSCLT, PTT, PT, PRCFUN #### [facility] [employer] [address] [place], [place] [address] Protein S Clottableon 2019 Protein S Clottable 58 % Low 59-131 [facility] Comment on above: Result Comment: Resu [...] #### P RSCLT, PTT, PT, PRCFUN #### [facility] [employer] [address] [place], [place] [address] Protimeon 05-10-2019 PT Coag (PPP) [Time] 10.2 s Normal 9.7-13.0 [facility] Comment on above: Performed By: #### P RSCLT, PTT, PT, PRCFUN #### [facility] [address] [place], [place] [id number] PT Coag (PPP) [Time] 0.9 s Normal 0.9-1.3 [facility] Comment on above: Result Comment: Maria D min K Antagonist (VKA) Therapeutic Range: INR 2 to 3 (Target INR of 2.5) Note: For patients treated with VKA drugs, such as warfarin, the [place] [employer] 2012 Guideline recommends [...] Chest 2012, 141:7S-47S Deo GARLAND et al. [facility] 2017, 70: 252-289 Performed By: #### P RSCLT, PTT, PT, PRCFUN #### [facility] [address] [place], [place] [address] CNOVSPon 04-12-2019 CNOVSP Visit (SP) Office ([facility]) LOYDA ADAME ([id number]) 2000 F Date Time Provider Department 04/12/19 4:15 PM FORD MORGAN) HEMASA During your visit today, we recorded the following information about you: Temperature Pulse Respiration Blood pressure 97.8 degrees 90/minute 18/minute 119/74 Weight Height 56.7 kg 1.632 m Ford Morgan MD 04/12/2019 4:48 PM Signed PATIENT NAME: Loyda Adame CLINIC NO.: [id number] ATTENDING PHYSICIAN: Ford Morgan MD DATE OF [...] Ford Morgan M.D. 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] Order(s):ACTIVATED PTT [SQPTT] Order #: [id number] FUTURE PROTHROMBIN TIME/PT [SQPT] Order #: [id number] FUTURE TUBES - DRAW EXTRA [SQXTUBE] Order #: [id number] FUTURE PROTEIN C FUNCT [SQPRCFUN] Order #: [id number] FUTURE PROTEIN S CLOTTABLE [SQPRSCLT] Order #: [id number] FUTURE Follow-up and Disposition History Recorded Prescriptions as of 04/12/2019 Sig: NORGESTIMATE 0.25 MG-ETHINYL * Take 1 tablet by mouth once d* Problem List As Of Date: 04/12/2019 (None) Encounter Status:Closed by FORD MORGAN MD on 04/12/19 Normal [facility] PROGRESSon 04-12-2019 PROGRESS HNO ID: [id number] Author: Ford Morgan Service: ? Author Type: Physician Type: Progress Notes Filed: 04/12/2019 4:48 PM Note Text: PATIENT NAME: Loyda Adame [facility] NO.: [id number] ATTENDING PHYSICIAN: Ford Morgan MD DATE OF [...] below. Ford Morgan M.D. Hematology/Medical Oncology [facility] [place] [phone] CC: Normal [facility] Encounters Encounter Date Encounter Type Care Provider Facility Start: 08-03-2023 End: 08-03-2023 ambulatory ROSALVA WELSH Not Available Start: 05-19-2023 End: 05-19-2023 ambulatory RAFAELA Wright FELTER Not Available Start: 05-05-2023 End: 05-05-2023 Phys/qhp telephone evaluation 5-10 min Rosalva Welsh DO Work Phone: [facility] Comment on above: Encounter to discuss test results Start: 04-22-2023 End: 04-22-2023 ambulatory RAFAELA ENCARNACION Not Available Start: 04-14-2023 End: 04-14-2023 ambulatory ROSALVA WELSH Not Available Start: 07-15-2022 End: 07-16-2022 ambulatory RACHEL SHETH Facility: Start: 02-04-2022 End: 02-05-[address] ROSALVA WELSH . Facility:[facility] Start: 10-29-2021 Encounter for preprocedural laboratory examination DR ROSALVA WELSH . [facility] Start: 10-25-2021 End: 10-25-[address] ROSALVA WELSH . Facility:[facility] Start: 10-23-2021 End: 10-24-[address] ROSALVA WELSH . Facility:[facility] Start: 10-23-2021 End: 10-24-2021 Encounter for preprocedural laboratory examination DR ROSALVA WELSH . Facility:[facility] Start: 10-22-2021 Encounter for other preprocedural examination DR ROSALVA WELSH . [facility] Start: 10-17-2021 End: 10-18-[address] ROSALVA [...] EDT Office Visit [facility] [address] [place] [address] Rosalva Welsh, DO [address] [place] [address] [facility] Start: 05-11-2023 End: 05-11-2023 Patient encounter procedure 05/11/2023 4:05 PM EST Office Visit [facility] [address] [place] [address] Rafaela Encarnacion, [employer] [address] [place] [address] [facility] Start: 11-28-2022 Influenza vaccination Influenza Vacc ine (#1) [facility] Immunizations Immunization Date Immunization Notes Care Provider [facility] 01-09-2022 influenza virus vacc ine, unspecified formulation Rosalva Welsh DO Work Phone: [facility] Payers Date Payer Category Payer Unknown BCBS BCBS [id number] 2022-Present [phone] [address] [place] [address] [id number] 2022 Unknown [id number] 2000 Unknown [id number] [id number] 1999 Unknown [id number] [id number] 1999 Unknown [id number] [id number] 1999 Unknown [id number] [id number] 1999 Unknown [id number] 2.16.840.1.249769.3.579.2.593 1999 Unknown [id number] 2.16.840.1.267610.3.579.2.593 1999 Unknown [id number] 2.16.840.1.769386.3.579.2.1259 1999 Unknown [id number] 2.16.840.1.125108.3.579.2.1259 1999 Unknown [id number] 2.16.840.1.142704.3.579.2.1259 1999 Unknown [id number] 2.16.840.1.585082.3.579.2.1259 1959 Self-pay 1960 Unknown [id number] Unknown [id number] [id number] Social History Date Type Detail Facility Start: 09-03-2022 Tobacco smoking stat [facility] Never smoked tobacco [facility] Start: 09-03-2022 [...] for a telehealth appointment. Patients Phone #: [phone] (mobile) Current Medications: has a current medication list which includes the following prescription(s): bupropion xl, cetirizine, duloxetine, fluocinonide, ibuprofen, ketoconazole, mirtazapine, norgestimate-ethinyl estradiol, phentermine, quetiapine, quetiapine, and vraylar. Medical History: Active Ambulatory Problems Diagnosis Date Noted Pelvic pain in female 04/10/2023 Resolved Ambulatory Problems Diagnosis Date Noted No Resolved Ambulatory Problems Past Medical History: Diagnosis Date Abnormal uterine bleeding (AUB) Anxiety and depression (CMS/[facility]) Anxiety disorder DUB (dysfunctional uterine bleeding) Dysmenorrhea Endometriosis Menorrhagia Menstrual irregularity Nonsmoker Protein S deficiency (CMS/HCC) Family History Problem Relation Name Age of [...] negaitve TONSILLECTOMY 03/27/2010 WISDOM TOOTH EXTRACTION 01/26/2016 [employer] teeth No Known Allergies Vitals: Estimated body [...] Rosalva Welsh DO documented in this encounter [facility] Clinical Note 10-25-2021 Note Date & Type Note Facility 10-25-2021 Note OPERATIVE NOTE OPERATION DATE: 11/01/2021 PROCEDURE: Diagnostic laparoscopy with chromopertubation. PREOPERATIVE DIAGNOSIS: 1. Pelvic pain. 2. Possible tubal dysfunction. POSTOPERATIVE DIAGNOSIS: 1. Pelvic pain. 2. Possible tubal dysfunction. ANESTHESIA: General. SURGEON: Rosalva Welsh D.O. TOOL COORDINATOR: DUC Sherman URINE OUTPUT: Yellow and [...] to Recovery Room in stable condition [facility] Evaluation note Note Date & Type Note [...] section and content) DATE CREATED AUTHOR 05/18/2019 [facility] DATE CREATED AUTHOR AUTHOR'S ORGANIZ ATION 07/20/2022 [facility] DATE CREATED AUTHOR AUTHOR'S ORGANIZ ATION 08/03/2023 [facility] EPIC Reason for Visit (unrecogniz ed section and content) Reason Comments Results Care Teams (unrecognized sec tion and content) Swimming Coach Or Instructor Relationship Specialty Start Date End Date Sahw Jorgensen MD [address] [place] [address] PCP - General Family Medicine 09/03/22 FOR [...] BE BASED ON THE PRIMARY CLINICAL RECORDS. [facility] [employer] provides no warranty or guarantee of the accuracy or completeness of information in this document.
== END 2023-08-05 07:59 | disposition home or self-care (01) ==
LOC: US 07:58
PROVIDERS: PCP Family Medicine; Visit Provider Physician Assistant
DX: N94.89 Other specified conditions associated with female genital organs and menstrual cycle (principal); R10.2 Pelvic and perineal pain
CPT/HCPCS: 76830; 76856

== ENCOUNTER 2023-09-12 23:53 | Emergency (ER) | payer BC, SELFPAY ==
[2023-09-12 23:59] VITALS: BP 106/76; PULSE 83; TEMP 36.8; O2SAT 97; BMI 27.5
--- NOTE | 2023-09-13 00:07 | ED_ITS ---
HPI - Nausea/Vomiting/Diarrhea General Chief complaint: Nausea/Vomiting/Diarrhea Stated complaint: VOMITING Time Seen by Provider: 09/13/23 00:03 Source: patient Mode of arrival: walk-in Limitations: no limitations History of Present Illness HPI Narrative: history of migraine headache. Recurrent vomiting today but none in 2 hours. States left amish headache present all day. Took Tylenol 4 hours ago without improvement. No fever, neck stiffness or paresthesia of her extremities. No abdominal pain. no dizziness or photophobia Related Data Home Medications ?Medication ?Instructions ?Recorded ?Confirmed cetirizine 10 mg tablet 10 mg PO DAILY 05/25/23 09/13/23 duloxetine 60 mg capsule,delayed 60 mg PO DAILY 05/25/23 09/13/23 release quetiapine 50 mg tablet 150 mg PO DAILY 05/25/23 09/13/23 ropinirole 5 mg tablet 5 mg PO BEDTIME 09/13/23 09/13/23 Allergies Allergy/AdvReac Type Severity Reaction Status Date / Time No Known Drug Allergies Allergy Verified 09/12/23 23:59 Review of Systems ROS Status of ROS 10 or more systems reviewed and unremark able except as noted in history and below [facility] Social History Smoking status: Never smoker Exam Constitutional Vital Signs, click to edit/add: Last Vital Signs Temp 98.2 F 09/12/23 23:59 Pulse 88 09/13/23 00:55 Resp 18 09/13/23 00:55 BP 112/85 09/13/23 00:55 Pulse Ox 100 09/13/23 00:55 O2 Del Method Room Air 09/13/23 00:55 Common normals: no apparent distress, average body habitus, oriented x3, no limitations, healthy appearing, alert and well nourished [facility] Common normals: normocephalic and head/scalp atraumatic Eye Common normals: PERRL and EOMs intact bilaterally Respiratory Common normals: normal respiratory effort, no retractions, no use of accessory muscles and clear to auscultation bilaterally Cardio Common normals: regular rate, regular rhythm, S1 normal heart sound and S2 normal heart sound GI Common normals: Normal to inspection, nondistended, normoactive bowel sounds present, soft to palpation and non-tender Extremity Common normals: normal to inspection and full ROM Neuro Common normals: oriented x3, CN's II-XII intact bilaterally, moves all extremities and no focal motor deficits Psych Appearance: grossly normal Course Vital Signs Vital signs: Vital Signs Temperature 98.2 F 09/12/23 23:59 Pulse Rate 83 09/12/23 23:59 Respiratory Rate 18 09/12/23 23:59 Blood Pressure 106/76 09/12/23 23:59 Pulse Oximetry 97 09/12/23 23:59 Oxygen Delivery Method Room Air 09/12/23 23:59 Temperature 98.2 F 09/12/23 23:59 Pulse Rate 88 09/13/23 00:55 Respiratory Rate 18 09/13/23 00:55 Blood Pressure 112/85 09/13/23 00:55 Pulse Oximetry 100 09/13/23 00:55 Oxygen Delivery Method Room Air 09/13/23 00:55 MDM - Nausea/Vomiting/Diarrhea MDM Narrative Medical decision making narrative: patient presents with nausea, vomiting and headache. Hydrated in the department and headache resolved after Reglan. Discharged home in improved condition Lab Data Labs: Lab Results 09/13/23 09/13/23 Range/Units 00:13 00:21 WBC 8.1 (4.0-11.0) 10^3/uL RBC 4.21 (4.20-5.40) 10^6/uL Hgb 13.1 (12.0-16.0) g/dL Hct 38.2 (36.0-48.0) % MCV 90.7 (81.0-99.0) fL MCH 31.1 (26.7-34.0) pg MCHC 34.3 (29.9-35.2) g/dL RDW 11.9 (11.0-15.0) % Plt Count 312 (150-450) 10^3/uL MPV 9.7 (9.5-13.5) fL Neut % (Auto) 50.9 (43.0-75.0) % Lymph % (Auto) 36.0 (20.5-60.0) % [place] % (Auto) 7.1 (1.7-12.0) % Eos % (Auto) 4.4 (0.9-7.0) % Baso % (Auto) 1.4 (0.2-2.0) % Neut # (Auto) 4.1 (1.4-6.5) 10^3/uL Lymph # (Auto) 2.9 (1.2-3.8) 10^3/uL [place] # (Auto) 0.6 (0.3-0.8) 10^3/uL Eos # (Auto) 0.4 (0.0-0.7) 10^3/uL Baso # (Auto) 0.1 (0.0-0.1) 10^3/uL Abs Immat Gran (auto) 0.02 (0.00-0.03) 10^3/uL Imm/Tot Granulo (auto) 0.2 (0.0-0.5) % Sodium 138 (136-145) mmol/L Potassium 3.7 (3.5-5.1) mmol/L Chloride 106 (98-107) mmol/L Carbon Dioxide 26.3 (21.0-32.0) mmol/L Anion Gap 9.4 BUN 9.0 (7.0-18.0) mg/dL Creatinine 0.69 (0.55-1.02) mg/dL Est GFR ( Amer) >60 (>=60) Est GFR (Non-Af Amer) >60 (>=60) BUN/Creatinine Ratio 13.0 Glucose 101 (74-106) mg/dL Calcium 8.7 (8.5-10.1) mg/dL Total Bilirubin 0.3 (0.2-1.0) mg/dL AST 11 L (15-37) U/L ALT 16 (14-59) U/L Alkaline Phosphatase 71 (46-116) U/L Total Protein 6.8 (6.4-8.2) g/dL Albumin 3.5 (3.4-5.0) g/dL Globulin 3.3 g/dL Albumin/Globulin Ratio 1.1 Urine Color Yellow (YELLOW) Urine Clarity Clear (CLEAR) Urine pH 6.0 (5.0-9.0) Ur Specific [place] 1.025 (1.005-1.025) Urine Protein Negative (NEG/TRACE) mg/dL Urine Glucose (UA) Negative (NEGATIVE) mg/dL Urine Ketones Negative (NEGATIVE) mg/dL Urine Occult Blood Moderate A (NEGATIVE) Urine Nitrite Negative (NEGATIVE) Urine Bilirubin Negative (NEGATIVE) Urine Urobilinogen 0.2 (0.2-1.0) EU/dL Ur Leukocyte Esterase Negative (NEGATIVE) Urine RBC 0-2 (0-2) #/HPF Urine WBC 0-2 A (NONE SEEN) #/HPF Ur Squamous Epith Cells Rare (NONE/RARE) #/LPF Urine Crystals None seen (None Seen) #/HPF Urine Bacteria Trace A (NONE SEEN) #/HPF Urine Casts None seen (NONE SEEN) #/LPF Urine Mucus None seen (NONE SEEN) Ur Culture Indicated? No Urine HCG, Qual Negative (NEGATIVE) Discharge Plan Discharge Stand Alone Forms: Portal Instructions Chief Complaint: Nausea/Vomiting/Diarrhea Clinical Impression: Nausea & vomiting, Headache Patient Disposition: Home, Self-Care Prescriptions / Home Meds: No Action cetirizine 10 mg tablet 10 mg PO DAILY duloxetine 60 mg capsule,delayed release(DR/EC) 60 mg PO DAILY quetiapine 50 mg tablet 150 mg PO DAILY ropinirole 5 mg tablet 5 mg PO BEDTIME Print Language: Thai Instructions: Acute Headache (ED), Acute Nausea and Vomiting (ED) Referrals: Shaw Jorgensen MD [Primary Care Provider] - 1 week
--- OUTSIDE RECORDS SUMMARY | 2023-09-13 00:14 | XMS_ITS | CCD ---
Author Organization [facility] Care Team Providers Care Procurement Consultant Name Role Phone JASON ., DR [...] HOY ., DR HAY Primary Care Unavailable AHSAN, DR NIKO Selby Consulting Unavailable JASON ., DR BLACKWELL Consulting Unavailable DOMENIC, RACHEL Admitting Unavailable RACHEL SHETH Attending Unavailable JAIR ., DR HAY Primary Care Unavailable RACHEL SHETH Consulting Unavailable JASON ., DR BLACKWELL Admitting Unavailable JASON ., DR BLACKWELL Attending Unavailable HOY ., DR HAY Primary Care Unavailable AHSAN, DR NIKO Selby Consulting Unavailable Shaw Jorgensen MD Primary Care Provider [phone] ROSALVA WELSH Attending Unavailable RAFAELA ENCARNACION Attending Unavailable RAFAELA ENCARNACION Attending Unavailable ROSALVA WELSH Attending Unavailable ROSALVA WELSH Attending Unavailable Medications [...] PLUSon 0 07-17-2022 QuantiFERON Criteria Comment Normal [facility] Comment on above: Result Comment: Yon [...] test. Performed By: #### Q NTTB #### [facility] [address] [place] [address] Dr. Elie Milan QuantiFERON Incubation Incubation performed. Normal [facility] Comment on above: Performed By: #### Q NTTB #### [facility] [address] [place] [address] Dr. Elie Milan QuantiFERON Mitogen Value >10.00 Normal [facility] Comment on above: Performed By: #### Q NTTB #### [facility] [address] [place] [address] Dr. Elie Milan QuantiFERON Nil Value 0.05 IU/mL [facility] Comment on above: Performed By: #### Q NTTB #### [facility] [address] [place] [address] Dr. Elie Milan QuantiFERON TB1 Ag Value 0.06 IU/mL Normal [facility] Comment on above: Performed By: #### Q NTTB #### [facility] [address] [place] [address] Dr. Elie Milan QuantiFERON TB2 Ag Value 0.07 IU/mL Normal [facility] Comment on above: Performed By: #### Q NTTB #### [facility] [address] [place] [address] Dr. Elie Milan QuantiFERON-TB Gold Plus Negative Normal Negative [facility] Comment on above: Result Comment: No r esponse to M tuberculosis antigens detected. Infection with M tuberculosis is unlikely, but high risk individuals should be considered for additional testing (ATS/IDSA/CDC Clinical Practice Guidelines, 2017). The reference range is an Antigen minus Nil result of <0.35 IU/mL. Chemiluminescence immunoassay methodology Performed By: #### Q NTTB #### [facility] [address] [place] [address] Dr. Elie Milan HEPATITIS B SURFACE ANTIBODY , QUANTon 07-16-2022 Hepatitis B Surf AB Quant <3.1 Critically low Immunity>9.9 [facility] Comment on above: Result Comment: Stat us of Immunity Anti-HBs Level Inconsistent with Immunity 0.0 - 9.9 Consistent with Immunity >9.9 Performed By: #### H EPBSRF #### [facility] [address] [place] [address] Dr. Elie Milan MMR IMMUNITYon 07-16-2022 Mumps Abs, IgG 261.0 AU/mL Normal Immune >10.9 [facility] Comment on above: Result Comment: Nega tive <9.0 Equivocal 9.0 - 10.9 Positive >10.9 A positive result generally indicates past exposure to Mumps virus or previous vaccination. Performed By: #### M MRIMMU #### [facility] [address] [place] [address] Dr. Elie Milan Rubella Antibodies, IgG 3.97 index Normal Immune >0.99 [facility] Comment on above: Result Comment: Non- immune <0.90 Equivocal 0.90 - 0.99 Immune >0.99 Performed By: #### M MRIMMU #### [facility] [address] [place] [address] Dr. Elie Milan Rubeola Ab, IgG >300.0 Normal Immune >16.4 [facility] Comment on above: Result Comment: Nega tive <13.5 Equivocal 13.5 - 16.4 Positive >16.4 Presence of antibodies to Rubeola is presumptive evidence of immunity except when acute infection is suspected. Performed By: #### M MRIMMU #### [facility] [address] [place] [address] Dr. Elie Milan VARICELLA IGG ABon 3 Varicella Zoster IgG 1549 index Normal Immune >165 [facility] Comment on above: Result Comment: Nega tive <135 Equivocal 135 - 165 Positive >165 A positive result generally indicates exposure to the pathogen or administration of specific immunoglobulins, but it is not indication of active infection or stage of disease. Performed By: #### V ARCEL #### [facility] [address] [place], [place] [id number] Dr. Elie Milan US PELVIS AND TRANSVAGon [...] NIKO FOREMAN Date: 2022-02-04 20:13 Normal [facility] HCG-BETA SUBUNIT QUANTon hCG,Beta Subunit,Qnt,Serum <1 Normal [facility] Comment on above: Result Comment: Fema le (Non-) 0 - 5 (Postmenopausal) 0 - 8 . Female () Weeks of Gestation 3 6 - 71 4 10 - 750 5 952 - 8143 6 504 - 81359 7 5391 -072658 8 57889 -254931 9 56991 -373122 10 73972 -007092 12 33444 -600802 14 47486 - 81630 15 01073 - 33112 16 5728 - 21629 17 2176 - 58662 18 8504 - 22942 Tanesha ECLIA methodology Performed By: #### H CGSUB #### [facility] [address] [place] [address] Dr. Elie Milan CBC AUTO DIFFon 10-23-2021 BASO # 0.1 103/ul Normal 0.0-0.1 [facility] Comment on above: Performed By: #### C BC #### [facility] [address] [place] [address] Dr. Elie Milan Basophils/100 WBC (Bld) 1.1 % Normal 0.2-2.0 [facility] Comment on above: Performed By: #### C BC #### [facility] [address] [place] [address] Dr. Elie Milan EO # 0.3 103/ul Normal 0.0-0.7 [facility] Comment on above: Performed By: #### C BC #### [facility] [address] [place] [address] Dr. Elie Milan Eosinophils/100 WBC (Bld) 4.6 % Normal 0.9-7.0 [facility] Comment on above: Performed By: #### C BC #### [facility] [address] [place] [address] Dr. Elie Milan Erythrocyte distribution width (RBC) [Ratio] 11.9 % Normal 11.0-15.0 [facility] Comment on above: Performed By: #### C BC #### [facility] [address] [place] [address] Dr. Elie Milan Hematocrit (Bld) [Volume fraction] 41.0 % Normal 36.0-48.0 [facility] Comment on above: Performed By: #### C BC #### [facility] [address] [place] [address] Dr. Elie Milan Hemoglobin (Bld) [Mass/Vol] 14.0 g/dL Normal 12.0-16.0 [facility] Comment on above: Performed By: #### C BC #### [facility] [address] [place] [address] Dr. Elie Milan IG # 0.02 10e3/ul Normal 0.00-0.03 [facility] Comment on above: Performed By: #### C BC #### [facility] [address] [place] [address] Dr. Elie Milan IG % 0.3 % Normal 0.0-0.5 [facility] Comment on above: Performed By: #### C BC #### [facility] [address] [place] [address] Dr. Elie Milan LYMPH # 1.3 103/ul Normal 1.2-3.8 [facility] Comment on above: Performed By: #### C BC #### [facility] [address] [place] [address] Dr. Elie Milan Lymphocytes/100 WBC (Bld) 17.9 % Critically low 20.5-60.0 [facility] Comment on above: Performed By: #### C BC #### [facility] [address] [place] [address] Dr. Elie Milan MANUAL DIFF REQ NO Normal [facility] Comment on above: Performed By: #### C BC #### [facility] [address] [place] [address] Dr. Elie Milan MCH (RBC) [Entitic mass] 30.9 pg Normal 26.7-34.0 [facility] Comment on above: Performed By: #### C BC #### [facility] [address] [place] [address] Dr. Elie Milan MCHC (RBC) [Mass/Vol] 34.1 g/dL Normal 29.9-35.2 [facility] Comment on above: Performed By: #### C BC #### [facility] [address] [place] [address] Dr. Elie Milan MCV (RBC) [Entitic vol] 90.5 fL Normal 81.0-99.0 [facility] Comment on above: Performed By: #### C BC #### [facility] [address] [place] [address] Dr. Elie Milan MONO # 0.5 103/ul Normal 0.3-0.8 [facility] Comment on above: Performed By: #### C BC #### [facility] [address] [address] [address] Elie Milan Monocytes/100 WBC (Bld) 7.3 % Normal 1.7-12.0 [facility] Comment on above: Performed By: #### C BC #### [facility] [address] [address] [address] Elie Milan NEUT # 4.8 103/ul Normal 1.4-6.5 [facility] Comment on above: Performed By: #### C BC #### [facility] [address] [address] [address] Elie Milan Neutrophils/100 WBC (Bld) 68.8 % Normal 43.0-75.0 [facility] Comment on above: Performed By: #### C BC #### [facility] [address] [place] [address] Dr. Elie Milan Platelet mean volume (Bld) [Entitic vol] 9.9 fL Normal 9.5-13.5 [facility] Comment on above: Performed By: #### C BC #### [facility] [address] [place] [address] Dr. Elie Milan PLT 223 103/ul Normal 150-450 [facility] Comment on above: Performed By: #### C BC #### [facility] [address] [place] [address] Dr. Elie Milan RBC 4.53 106/ul Normal 4.20-5.40 [facility] Comment on above: Performed By: #### C BC #### [facility] [address] [place] [address] Dr. Elie Milan WBC 7.0 103/ul Normal 4.0-11.0 [facility] Comment on above: Performed By: #### C BC #### [facility] [address] [place] [address] Dr. Elie Milan HCG-BETA SUBUNIT QUANTon hCG,Beta Subunit,Qnt,Serum <1 Normal [facility] Comment on above: Result Comment: Fema le (Non-) 0 - 5 (Postmenopausal) 0 - 8 . Female () Weeks of Gestation 3 6 - 71 4 10 - 750 5 931 - 4282 6 106 - 34195 7 8558 -530114 8 49807 -691245 9 53066 -607502 10 60599 -130157 12 10182 -500208 14 38052 - 03826 15 98366 - 99315 16 8623 - 06616 17 1186 - 15453 18 2360 - 45754 Tanesha ECLIA methodology Performed By: #### H CGSUB #### [facility] [address] [place] [address] Dr. Elie Milan US PELVIS TRANSVAGon US PELVIS TRANSVAG EXAMINATION: US PELV IS [...] by: NIKO FOREMAN Date: 2021-10-08 16:31 Normal [facility] CNOVSPon 05-17-2019 CNOVSP Visit (SP) Office ([place]) LOYDA ADAME ([id number]) 2000 F Date Time Provider Department 05/17/19 10:45 AM FORD MORGAN) IFTIKHAR During your visit today, we recorded the following information about you: Temperature Pulse Respiration Blood pressure 98.2 degrees 86/minute 18/minute 121/71 Weight Height 56.8 kg 1.632 m Ford Morgan MD 05/17/2019 2:07 PM Signed PATIENT NAME: Loyda Adame CLINIC NO.: [id number] ATTENDING PHYSICIAN: Ford Morgan MD DATE OF SERVICE: May 17, 2019 This document has been created with the use of voice recognition technology. It may contain inaccuracies, misspellings, inaccurate syntax or inappropriate word context that escaped review. Dear Dr. Ford Morgan MD [address] [place] [address] here is an update on a follow [...] do not hesitate to contact me at [phone]. Ford Morgan MD Hematology/Medical Oncology [facility] [place] CC: Shaw Jorgensen Referring Provider: FORD MORGAN) [[id number]] Allergies As of Date: 05/17/2019 (No Known [...] Status:Closed by FORD MORGAN MD on 05/17/19 [facility] PROGRESSon 05-17-2019 PROGRESS HNO ID: [id number] Author: Ford Morgan Service: ? Author Type: Physician Type: Progress Notes Filed: 05/17/2019 2:07 PM Note Text: PATIENT NAME: Loyda Adame [facility] NO.: [id number] ATTENDING PHYSICIAN: Ford Morgan MD DATE OF SERVICE: May 17, 2019 This document has been created with the use of voice recognition technology. It may contain inaccuracies, misspellings, inaccurate syntax or inappropriate word context that escaped review. Dear Dr. Ford Morgan MD [address] [place] [address] here is an update on a follow [...] do not hesitate to contact me at [phone]. Ford Morgan MD Hematology/Medical Oncology [facility] CC: Shaw Yaritza Jorgensen Normal [facility] APTTon 05-10-2019 aPTT Coag (Bld) [Time] 27.1 s Normal 23.0-32.4 [facility] Comment on above: Result Comment: Unfr actionated [...] laboratory APTT reagent in use throughout the [facility]. Performed By: #### P RSCLT, PTT, PT, PRCFUN #### [facility] [facility] [address] [place], [place] [address] Protein C Functionalon 05-10 Protein [Mass/Vol] 89 % Normal 76-147 [facility] Comment on above: Performed By: #### P RSCLT, PTT, PT, PRCFUN #### [facility] [address] [place], [place] [address] Protein S Clottableon 2019 Protein S Clottable 58 % Low 59-131 [facility] Comment on above: Result Comment: Resu lt [...] #### P RSCLT, PTT, PT, PRCFUN #### [facility] [address] [place], [place] [id number] Protimeon 05-10-2019 PT Coag (PPP) [Time] 10.2 s Normal 9.7-13.0 [facility] Comment on above: Performed By: #### P RSCLT, PTT, PT, PRCFUN #### [facility] [address] [place], [place] [id number] PT Coag (PPP) [Time] 0.9 s Normal 0.9-1.3 [facility] Comment on above: Result Comment: Maria D min K Antagonist (VKA) Therapeutic Range: INR 2 to 3 (Target INR of 2.5) Note: For patients treated with VKA drugs, such as warfarin, the [employer] [employer] 2012 Guideline recommends [...] PADGETT, et al. Chest 2012, 141:7S-47S Deo RA, et al. [facility] 2017, 70: 252-289 Performed By: #### P RSCLT, PTT, PT, PRCFUN #### [facility] [address] [place], [place] [address] CNOVSPon 04-12-2019 CNOVSP Visit (SP) Office ([place]) LOYDA ADAME ([id number]) 2000 F Date Time Provider Department 04/12/19 4:15 PM FORD MORGAN) HEMASA During your visit today, we recorded the following information about you: Temperature Pulse Respiration Blood pressure 97.8 degrees 90/minute 18/minute 119/74 Weight Height 56.7 kg 1.632 m Ford Morgan MD 04/12/2019 4:48 PM Signed PATIENT NAME: Loyda Adame CLINIC NO.: [id number] ATTENDING PHYSICIAN: Ford Morgan MD DATE OF [...] Ford Morgan M.D. 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] Order(s):ACTIVATED PTT [SQPTT] Order #: [id number] FUTURE PROTHROMBIN TIME/PT [SQPT] Order #: [id number] FUTURE TUBES - DRAW EXTRA [SQXTUBE] Order #: [id number] FUTURE PROTEIN C FUNCT [SQPRCFUN] Order #: [id number] FUTURE PROTEIN S CLOTTABLE [SQPRSCLT] Order #: [id number] FUTURE Follow-up and Disposition History Recorded Prescriptions as of 04/12/2019 Sig: NORGESTIMATE 0.25 MG-ETHINYL * Take 1 tablet by mouth once d* Problem List As Of Date: 04/12/2019 (None) Encounter Status:Closed by FORD MORGAN MD on 04/12/19 [facility] PROGRESSon 04-12-2019 PROGRESS HNO ID: [id number] Author: Ford Morgan Service: ? Author Type: Physician Type: Progress Notes Filed: 04/12/2019 4:48 PM Note Text: PATIENT NAME: Loyda Adame [facility] NO.: [id number] ATTENDING PHYSICIAN: Ford Morgan MD DATE OF [...] me to participate in [facility], if there are any questions or concerns please do not hesitate to contact me at the number below. Ford Morgan M.D. Hematology/Medical Oncology [facility] [phone] CC: Normal [facility] Encounters Encounter Date Encounter Type Care Provider Facility Start: 09-07-2023 End: 09-07-2023 ambulatory ROSALVA WELSH Not Available Start: 08-03-2023 End: 08-03-2023 ambulatory ROSALVA WELSH Not Available Start: 05-19-2023 End: 05-19-2023 ambulatory RAFAELA ENCARNACION Not Available Start: 05-05-2023 End: 05-05-2023 Phys/qhp [...] laboratory examination DR ROSALVA WELSH . [facility] Start: 10-25-2021 End: 10-25-[address] ROSALVA WELSH . Facility:[facility] Start: 10-23-2021 End: 10-24-[address] ROSALVA WELSH . Facility:[facility] Start: 10-23-2021 End: 10-24-2021 Encounter for preprocedural laboratory examination DR ROSALVA WELSH . Facility:[facility] Start: 10-22-2021 Encounter for other preprocedural examination DR ROSALVA WELSH . [facility] Start: 10-17-2021 End: 10-18-[address] ROSALVA WELSH . Facility:[facility] Start: 10-17-2021 End: 10-18-2021 Encounter for other preprocedural examination DR ROSALVA WELSH . Facility:[facility] Start: 10-09-2021 End: 10-10-[address] ROSALVA WELSH . Facility:[facility] Start: 10-08-2021 End: 10-09-[address] ROSALVA WELSH . Facility:[facility] Plan of Treatment Date Care Activity Detail Author Start: 12-15-2023 End: 12-15-2023 Patient encounter procedure 12/15/2023 11:00 AM EDT Office Visit [facility] [address] [phone] Rosalva Welsh, DO [address] [place] [address] [facility] Start: 05-11-2023 End: 05-11-2023 Patient encounter procedure 05/11/2023 4:05 PM EST Office Visit [facility] [address] [place] [phone] Rafaela Encarnacion, HOME HEALTH CLINICAL SUPERVISOR-MARINA PORTER [address] [place] [address] [facility] Start: 11-28-2022 Influenza vaccination Influenza Vacc ine (#1) [facility] Immunizations Immunization Date Immunization Notes Care Provider Fa cili 01-09-2022 influenza virus vacc ine, unspecified formulation Rosalva Welsh DO Work Phone: [facility] Payers Date Payer Category Payer Unknown BCBS BCBS [id number] [id number] 2022-Present [phone] [address] [place] [address] [id number] 2022 Unknown [id number] 2000 Unknown [id number] 2000 Unknown [id number] [id number] 1999 Unknown [id number] [id number] 1999 Unknown [id number] 2.16.840.1.438883.3.579.2.593 1999 Unknown [id number] 2.16.840.1.461624.3.579.2.593 1999 Unknown [id number] [id number] 1999 Unknown [id number] 2.16.840.1.580085.3.579.2.1259 1999 Unknown [id number] 2.16.840.1.008295.3.579.2.1259 1999 Unknown [id number] 2.16.840.1.633197.3.579.2.1259 1999 Unknown [id number] 2.16.840.1.774478.3.579.2.1259 1999 Unknown [id number] [id number] 1960 Self-pay 1960 Unknown [id number] Unknown [id number] Social History Date Type Detail Facility Start: 09-03-2022 Tobacco smoking stat [facility] Never smoked tobacco [facility] Start: 09-03-2022 Tobacco use and exposure Smokeless t obacco non-user [facility] Start: 04-22-2023 Alcohol intake Lifetime non-d mariza (finding) [facility] Start: 04-22-2023 History of Social function [facility] Start: 04-22-2023 Tobacco use panel [facility] Start: 2000 Sex Assigned At Female [facility] Start: 08-27-2022 Gender identity Identifies as female gender (finding) [facility] Start: 08-27-2022 Sexual orientation Heterosexual (fin marlen) [facility] History of Present illness Narrative 05-05-2023 Gina Edouard, ZULEIKA - 05/05/2023 8:10 AM EST Note Date & Type Note Facility 05-05-2023 History of Presen t illness Narrative Reason for Appointment: Patient ID: Loyda Adame is a 23 y.o. female who presents for Results Patient presents today via telephone call for a telehealth appointment. Patients Phone #: [phone] (mobile) Current Medications: has a current medication list which includes the following prescription(s): bupropion xl, cetirizine, duloxetine, fluocinonide, ibuprofen, ketoconazole, mirtazapine, norgestimate-ethinyl estradiol, phentermine, quetiapine, quetiapine, and vraylar. Medical History: Active Ambulatory Problems Diagnosis Date Noted Pelvic pain in female 04/10/2023 Resolved Ambulatory Problems Diagnosis Date Noted No Resolved Ambulatory Problems Past Medical History: Diagnosis Date Abnormal uterine bleeding (AUB) Anxiety and depression (CMS/HCC) Anxiety disorder DUB (dysfunctional uterine bleeding) Dysmenorrhea [...] negaitve TONSILLECTOMY 03/27/2010 WISDOM TOOTH EXTRACTION 01/26/2016 [place] teeth No Known Allergies Vitals: Estimated body [...] Rosalva Welsh DO documented in this encounter [facility] Clinical Note 10-25-2021 Note Date & Type Note Facility 10-25-2021 Note OPERATIVE NOTE OPERATION DATE: 11/01/2021 PROCEDURE: Diagnostic laparoscopy with chromopertubation. PREOPERATIVE DIAGNOSIS: 1. Pelvic pain. 2. Possible tubal dysfunction. POSTOPERATIVE DIAGNOSIS: 1. Pelvic pain. 2. Possible tubal dysfunction. ANESTHESIA: General. SURGEON: Rosalva Welsh D.O. RAIL PROJECT ENGINEER: DUC Sherman URINE OUTPUT: Yellow and clear. [...] to Recovery Room in stable condition [facility] Evaluation note Note Date & Type Note [...] section and content) DATE CREATED AUTHOR 05/18/2019 [facility] DATE CREATED AUTHOR AUTHOR'S ORGANIZ ATION 07/20/2022 [facility] DATE CREATED AUTHOR AUTHOR'S ORGANIZ ATION 09/07/2023 [facility] EPIC Reason for Visit (unrecogniz ed section and content) Reason Comments Results Care Teams (unrecognized sec tion and content) Procurement Consultant Relationship Specialty Start Date End Date Shaw Jorgensen MD [address] [place] [address] PCP - General Family Medicine 09/03/22 FOR [...] BE BASED ON THE PRIMARY CLINICAL RECORDS. [employer] provides no warranty or guarantee of the accuracy or completeness of information in this document.
[2023-09-13] MEDS: 0.9 % SODIUM CHLORIDE 1,000 ML 999 ML IV (00:26)
[2023-09-13] MEDS: METOCLOPRAMIDE HCL 10 MG/2 ML VIAL IVP (00:27)
[2023-09-13 00:32] LABS: Basophils Absolute Auto 0.1 10^3/uL (0.0-0.1); Basophils Percent Auto 1.4 % (0.2-2.0); Eosinophils Absolute Auto 0.4 10^3/uL (0.0-0.7); Eosinophils Percent Auto 4.4 % (0.9-7.0); Hematocrit 38.2 % (36.0-48.0); Hemoglobin 13.1 g/dL (12.0-16.0); Immature Granulocytes Abs Auto 0.02 10^3/uL (0.00-0.03); Immature Granulocytes Pct Auto 0.2 % (0.0-0.5); Lymphocytes Absolute Auto 2.9 10^3/uL (1.2-3.8); Mean Corpuscular HGB Conc 34.3 g/dL (29.9-35.2); Mean Corpuscular Hemoglobin 31.1 pg (26.7-34.0); Mean Corpuscular Volume 90.7 fL (81.0-99.0); Mean Platelet Volume 9.7 fL (9.5-13.5); Monocytes Absolute Auto 0.6 10^3/uL (0.3-0.8); Monocytes Percent Auto 7.1 % (1.7-12.0); Neutrophils Absolute Auto 4.1 10^3/uL (1.4-6.5); Neutrophils Percent Auto 50.9 % (43.0-75.0); Platelet Count 312 10^3/uL (150-450); Red Blood Count 4.21 10^6/uL (4.20-5.40); Red Cell Distribution Width 11.9 % (11.0-15.0); White Blood Count 8.1 10^3/uL (4.0-11.0)
[2023-09-13 00:35] LABS: Bilirubin Urine NEGATIVE (NEGATIVE); Blood Urine MODERATE (NEGATIVE); Clarity Urine CLEAR (CLEAR); Color Urine YELLOW (YELLOW); Glucose Urine UA NEGATIVE (NEGATIVE); Ketones Urine NEGATIVE (NEGATIVE); Leukocyte Esterase Urine NEGATIVE (NEGATIVE); Nitrite Urine NEGATIVE (NEGATIVE); Protein Urine NEGATIVE (NEG/TRACE); Specific Gravity Urine 1.025 (1.005-1.025); Urobilinogen Urine 0.2 EU/dL (0.2-1.0)
[2023-09-13 00:36] LABS: HCG Qualitative Urine* NEGATIVE (NEGATIVE); Internal Control Within Normal Limits
[2023-09-13 00:37] LABS: Urine Microscopic Indicated YES
[2023-09-13 00:41] LABS: Bacteria Urine TRACE #/HPF (NONE SEEN); Cast Seen? NONE SEEN #/LPF (NONE SEEN); Crystals Seen? None Seen #/HPF (None Seen); Mucus Urine NONE SEEN (NONE SEEN); RBC Urine 0-2 #/HPF (0-2); Squamous Epithelial Cell Urine RARE #/LPF (NONE/RARE); Urine Culture Indicated NO; WBC Urine 0-2 #/HPF (NONE SEEN)
[2023-09-13 00:48] LABS: Alanine Aminotransferase 16 U/L (14-59); Albumin Globulin Ratio 1.1; Albumin Level 3.5 g/dL (3.4-5.0); Alkaline Phosphatase 71 U/L (46-116); Anion Gap 9.4; Aspartate Amino Transferase 11 U/L (15-37); Bilirubin Total 0.3 mg/dL (0.2-1.0); Calcium 8.7 mg/dL (8.5-10.1); Carbon Dioxide 26.3 mmol/L (21.0-32.0); Chloride 106 mmol/L (98-107); Estimated GFR (African America >60 (>=60); Estimated GFR (Non-African Ame >60 (>=60); Globulin 3.3 g/dL; Glucose 101 mg/dL (74-106); Potassium 3.7 mmol/L (3.5-5.1); Sodium 138 mmol/L (136-145); Total Protein 6.8 g/dL (6.4-8.2)
[2023-09-13 00:55] VITALS: BP 112/85; PULSE 88; O2SAT 100
== END 2023-09-13 01:13 | disposition home or self-care (01) ==
PROVIDERS: Emergency Provider Internal Medicine; PCP Family Medicine
DX: R51.9 Headache, unspecified (principal); R11.2 Nausea with vomiting, unspecified
CPT/HCPCS: 36415; 80053; 81001; 84703; 85025; 96361; 96374; 99284; J2765

== ENCOUNTER 2023-10-08 13:22 | Outpatient (OUT) | payer BC, SELFPAY ==
[2023-10-08 13:51] LABS: Internal Control Within Normal Limits; SARS-CoV-2 Ag NEGATIVE (NEGATIVE)
== END 2023-10-08 13:23 | disposition home or self-care (01) ==
PROVIDERS: PCP Family Medicine; Visit Provider Family Medicine
DX: Z20.822 Contact with and (suspected) exposure to COVID-19 (principal); R50.9 Fever, unspecified
CPT/HCPCS: 87811

== ENCOUNTER 2023-11-18 11:53 | Outpatient (REF) | payer BC, SELFPAY ==
[2023-11-18 12:48] LABS: Internal Control Within Normal Limits; SARS-CoV-2 Ag NEGATIVE (NEGATIVE)
== END 2023-11-18 11:54 | disposition home or self-care (01) ==
LOC: LAB 11:53
PROVIDERS: PCP Family Medicine; Visit Provider Family Medicine
DX: R09.81 Nasal congestion (principal)
CPT/HCPCS: 87811

== ENCOUNTER 2023-12-12 09:15 | Outpatient (OUT) | payer BC, SELFPAY ==
--- NOTE | 2023-12-12 | US_ITS ---
The [address] [address] Patient Name: DONALD ADAME MRN: [id number] date: 2000 Sex: F Assigned Patient Location: US Current Patient Location: Accession/Order Number: [id number] Exam Date: 12/12/2023 09:15 Report Date: 12/13/2023 04:55 At the request of: BHARTI ADAM Procedure: US right upper quadrant EXAMINATION: US right upper quadrant HISTORY: Right upper quadrant abdominal pain R10.11 COMPARISON: No relevant comparison available. TECHNIQUE: Transabdominal evaluation of the right upper quadrant. FINDINGS: LIVER: Normal size and echotexture. Color Doppler demonstrates patent hepatic veins. PORTAL VEIN: Duplex Doppler demonstrates normal hepatopetal flow pattern with flow velocity averaging 27 cm/s. GALLBLADDER: Multiple small stones within the noninflamed gallbladder. Negative sonographic Pacheco's sign. BILIARY: No abnormal dilation or stones. Common bile duct diameter is within normal limits. PANCREAS: No visible mass, abnormal atrophy, or duct dilation. KIDNEY: No hydronephrosis. No visible mass or stones. Size: 10.5 x 3.7 x 4.0 cm US/US right upper quadrant IMPRESSION: 1. Cholelithiasis. No ultrasound evidence of acute cholecystitis. Electronically authenticated by: RANGEL VALERIO Date: 12/13/2023 04:55
--- OUTSIDE RECORDS SUMMARY | 2023-12-12 09:19 | XMS_ITS | CCD ---
Author Organization [facility] Care Team Providers Care System Controller Name Role Phone JASON ., DR BLACKWELL [...] Unavailable JASON ., DR BLACKWELL Consulting Unavailable AGUBOSIM NIKKY Consulting Unavailable LU ALY Consulting Unavailable [...] Unavailable Shaw Jorgensen MD Primary Care Provider [phone] ROSALVA WELSH Attending Unavailable RAFAELA ENCARNACION Attending Unavailable RAFAELA ENCARNACION Attending Unavailable ROSALVA WELSH Attending Unavailable ROSALVA WELHS Attending Unavailable Medications Current Medications Medication Drug [...] 0 07-17-2022 QuantiFERON Criteria Comment Normal [facility] Comment on above: Result Comment: Yon [...] test. Performed By: #### Q NTTB #### [facility] [address] [place] [address] Dr. Elie Milan QuantiFERON Incubation Incubation performed. Normal [facility] Comment on above: Performed By: #### Q NTTB #### [facility] [address] [place] [address] Dr. Elie Milan QuantiFERON Mitogen Value >10.00 Normal [facility] Comment on above: Performed By: #### Q NTTB #### [facility] [address] [place] [address] Dr. Elie Milan QuantiFERON Nil Value 0.05 IU/mL Normal [facility] Comment on above: Performed By: #### Q NTTB #### [facility] [address] [place] [address] Dr. Elie Milan QuantiFERON TB1 Ag Value 0.06 IU/mL Normal [facility] Comment on above: Performed By: #### Q NTTB #### [facility] [address] [place] [address] Dr. Elie Milan QuantiFERON TB2 Ag Value 0.07 IU/mL Normal [facility] Comment on above: Performed By: #### Q NTTB #### [facility] [address] [place] [address] Dr. Elie Milan QuantiFERON-TB Gold Plus Negative Normal Negative [facility] Comment on above: Result Comment: No r esponse to M tuberculosis antigens detected. Infection with M tuberculosis is unlikely, but high risk individuals should be considered for additional testing (ATS/IDSA/CDC Clinical Practice Guidelines, 2017). The reference range is an Antigen minus Nil result of <0.35 IU/mL. Chemiluminescence immunoassay methodology Performed By: #### Q NTTB #### [facility] [address] [place] [address] Dr. Elie Milan HEPATITIS B SURFACE ANTIBODY , QUANTon 07-16-2022 Hepatitis B Surf AB Quant <3.1 Critically low Immunity>9.9 [facility] Comment on above: Result Comment: Stat us of Immunity Anti-HBs Level Inconsistent with Immunity 0.0 - 9.9 Consistent with Immunity >9.9 Performed By: #### H EPBSRF #### [facility] [address] [place] [address] Dr. Elie Milan MMR IMMUNITYon 07-16-2022 Mumps Abs, IgG 261.0 AU/mL Normal Immune >10.9 [facility] Comment on above: Result Comment: Nega tive <9.0 Equivocal 9.0 - 10.9 Positive >10.9 A positive result generally indicates past exposure to Mumps virus or previous vaccination. Performed By: #### M MRIMMU #### [facility] [address] [place] [address] Dr. Elie Milan Rubella Antibodies, IgG 3.97 index Normal Immune >0.99 [facility] Comment on above: Result Comment: Non- immune <0.90 Equivocal 0.90 - 0.99 Immune >0.99 Performed By: #### M MRIMMU #### [facility] [address] [place] [address] Dr. Elie Milan Rubeola Ab, IgG >300.0 Normal Immune >16.4 [facility] Comment on above: Result Comment: Nega tive <13.5 Equivocal 13.5 - 16.4 Positive >16.4 Presence of antibodies to Rubeola is presumptive evidence of immunity except when acute infection is suspected. Performed By: #### M MRIMMU #### [facility] [address] [place] [address] Elie Milan VARICELLA IGG ABon 3 Varicella Zoster IgG 1549 index Normal Immune >165 [facility] Comment on above: Result Comment: Nega tive <135 Equivocal 135 - 165 Positive >165 A positive result generally indicates exposure to the pathogen or administration of specific immunoglobulins, but it is not indication of active infection or stage of disease. Performed By: #### V ARCEL #### [facility] [address] [place] [address] [address] Elie Milan US PELVIS AND TRANSVAGon [...] NIKO FOREMAN Date: 2022-02-04 20:13 Normal [facility] HCG-BETA SUBUNIT QUANTon hCG,Beta Subunit,Qnt,Serum <1 Normal [facility] Comment on above: Result Comment: Fema le (Non-) 0 - 5 (Postmenopausal) 0 - 8 . Female () Weeks of Gestation 3 6 - 71 4 10 - 750 5 948 - 8710 6 257 - 01410 7 2677 -481832 8 53058 -650388 9 62507 -693317 10 37404 -987516 12 77181 -759035 14 02605 - 16547 15 12601 - 80971 16 3160 - 09455 17 3146 - 84621 18 6826 - 63011 SMX ECLIA methodology Performed By: #### H CGSUB #### [facility] [address] [address] [address] Elie Milan CBC AUTO DIFFon 10-23-2021 BASO # 0.1 103/ul Normal 0.0-0.1 [facility] Comment on above: Performed By: #### C BC #### [facility] [address] [address] [address] Elie Milan Basophils/100 WBC (Bld) 1.1 % Normal 0.2-2.0 [facility] Comment on above: Performed By: #### C BC #### [facility] [address] [place] [address] Dr. Elie Milan EO # 0.3 103/ul Normal 0.0-0.7 [facility] Comment on above: Performed By: #### C BC #### [facility] [address] [place] [address] Dr. Elie Milan Eosinophils/100 WBC (Bld) 4.6 % Normal 0.9-7.0 [facility] Comment on above: Performed By: #### C BC #### [facility] [address] [address] [address] Elie Milan Erythrocyte distribution width (RBC) [Ratio] 11.9 % Normal 11.0-15.0 [facility] Comment on above: Performed By: #### C BC #### [facility] [address] [place] [address] Dr. Elie Milan Hematocrit (Bld) [Volume fraction] 41.0 % Normal 36.0-48.0 [facility] Comment on above: Performed By: #### C BC #### [facility] [address] [address] [address] Elie Milan Hemoglobin (Bld) [Mass/Vol] 14.0 g/dL Normal 12.0-16.0 [facility] Comment on above: Performed By: #### C BC #### [facility] [address] [address] [address] Elie Milan IG # 0.02 10e3/ul Normal 0.00-0.03 [facility] Comment on above: Performed By: #### C BC #### [facility] [address] [place] [address] Dr. Elie Milan IG % 0.3 % Normal 0.0-0.5 [facility] Comment on above: Performed By: #### C BC #### [facility] [address] [place] [address] Dr. Elie Milan LYMPH # 1.3 103/ul Normal 1.2-3.8 [facility] Comment on above: Performed By: #### C BC #### [facility] [address] [place] [address] Dr. Elie Milan Lymphocytes/100 WBC (Bld) 17.9 % Critically low 20.5-60.0 [facility] Comment on above: Performed By: #### C BC #### [facility] [address] [place] [address] Dr. Elie Milan MANUAL DIFF REQ NO Normal [facility] Comment on above: Performed By: #### C BC #### [facility] [address] [place] [address] Dr. Elie Milan MCH (RBC) [Entitic mass] 30.9 pg Normal 26.7-34.0 [facility] Comment on above: Performed By: #### C BC #### [facility] [address] [place] [address] Dr. Elie Mlian MCHC (RBC) [Mass/Vol] 34.1 g/dL Normal 29.9-35.2 [facility] Comment on above: Performed By: #### C BC #### [facility] [address] [place] [address] Dr. Elie Milan MCV (RBC) [Entitic vol] 90.5 fL Normal 81.0-99.0 [facility] Comment on above: Performed By: #### C BC #### [facility] [address] [place] [address] Dr. Elie Milan MONO # 0.5 103/ul Normal 0.3-0.8 [facility] Comment on above: Performed By: #### C BC #### [facility] [address] [place] [address] Dr. Elie Milan Monocytes/100 WBC (Bld) 7.3 % Normal 1.7-12.0 [facility] Comment on above: Performed By: #### C BC #### [facility] [address] [place] [address] Dr. Elie Milan NEUT # 4.8 103/ul Normal 1.4-6.5 [facility] Comment on above: Performed By: #### C BC #### [facility] [address] [place] [address] Dr. Elie Milan Neutrophils/100 WBC (Bld) 68.8 % Normal 43.0-75.0 [facility] Comment on above: Performed By: #### C BC #### [facility] [address] [place] [address] Dr. Elie Milan Platelet mean volume (Bld) [Entitic vol] 9.9 fL Normal 9.5-13.5 [facility] Comment on above: Performed By: #### C BC #### [facility] [address] [place] [address] Dr. Elie Milan PLT 223 103/ul Normal 150-450 [facility] Comment on above: Performed By: #### C BC #### [facility] [address] [place] [address] Dr. Elie Milan RBC 4.53 106/ul Normal 4.20-5.40 [facility] Comment on above: Performed By: #### C BC #### [facility] [address] [place] [address] Dr. Elie Milan WBC 7.0 103/ul Normal 4.0-11.0 [facility] Comment on above: Performed By: #### C BC #### [facility] [address] [place] [address] Dr. Elie Milan HCG-BETA SUBUNIT QUANTon hCG,Beta Subunit,Qnt,Serum <1 Normal [facility] Comment on above: Result Comment: Fema le (Non-) 0 - 5 (Postmenopausal) 0 - 8 . Female () Weeks of Gestation 3 6 - 71 4 10 - 750 5 523 - 2715 6 539 - 16070 7 6382 -698157 8 40060 -932559 9 79821 -000406 10 61859 -618455 12 78855 -926423 14 85532 - 91334 15 51850 - 04159 16 4779 - 77339 17 6166 - 78035 18 6468 - 94509 Tanesha ECLIA methodology Performed By: #### H CGSUB #### [facility] [address] [place] [address] Dr. Elie Milan US PELVIS TRANSVAGon 022 [...] by: NIKO FOREMAN Date: 2021-10-08 16:31 Normal [facility] CNOVSPon 05-17-2019 CNOVSP Visit (SP) Office ([facility]) LOYDA ADAME ([id number]) 2000 F Date Time Provider Department 05/17/19 10:45 AM FORD MORGAN) IFTIKHAR During your visit today, we recorded the following information about you: Temperature Pulse Respiration Blood pressure 98.2 degrees 86/minute 18/minute 121/71 Weight Height 56.8 kg 1.632 m Ford Morgan MD 05/17/2019 2:07 PM Signed PATIENT NAME: Loyda Adame CLINIC NO.: [id number] ATTENDING PHYSICIAN: Ford Morgan MD DATE OF SERVICE: May 17, 2019 This document has been created with the use of voice recognition technology. It may contain inaccuracies, misspellings, inaccurate syntax or inappropriate word context that escaped review. Dear Dr. Ford Morgan MD [address] [place] [address] here is an update on a follow [...] do not hesitate to contact me at [phone]. Ford Morgan MD Hematology/Medical Oncology [facility] CC: Shaw Jorgensen Referring Provider: FORD MORGAN) [[id number]] Allergies As of Date: 05/17/2019 (No Known [...] FORD MORGAN MD on 05/17/19 Normal [facility] PROGRESSon 05-17-2019 PROGRESS HNO ID: [id number] Author: Ford Morel) Cathy Service: ? Author Type: Physician Type: Progress Notes Filed: 05/17/2019 2:07 PM Note Text: PATIENT NAME: Loyda Adame [facility] NO.: [id number] ATTENDING PHYSICIAN: Ford Morgan MD DATE OF SERVICE: May 17, 2019 This document has been created with the use of voice recognition technology. It may contain inaccuracies, misspellings, inaccurate syntax or inappropriate word context that escaped review. Dear Dr. Ford Morgan MD [address] [place] [address] here is an update on a follow [...] do not hesitate to contact me at [phone]. Ford Morgan MD Hematology/Medical Oncology [facility] CC: Shaw Jorgensen Normal [facility] APTTon 05-10-2019 aPTT Coag (Bld) [Time] 27.1 s Normal 23.0-32.4 [facility] Comment on above: Result Comment: Unfr [...] laboratory APTT reagent in use throughout the [facility]. Performed By: #### P RSCLT, PTT, PT, PRCFUN #### [facility] [address] [place], [place] [address] Protein C Functionalon 05-10 Protein [Mass/Vol] 89 % Normal 76-147 [facility] Comment on above: Performed By: #### P RSCLT, PTT, PT, PRCFUN #### [facility] [address] [place], [place] [address] Protein S Clottableon 2019 Protein S Clottable 58 % Low 59-131 [facility] Comment on above: Result Comment: Resu [...] #### P RSCLT, PTT, PT, PRCFUN #### [facility] [address] [place], [place] [address] Protimeon 05-10-2019 PT Coag (PPP) [Time] 10.2 s Normal 9.7-13.0 [facility] Comment on above: Performed By: #### P RSCLT, PTT, PT, PRCFUN #### [facility] [address] [place], [place] [id number] PT Coag (PPP) [Time] 0.9 s Normal 0.9-1.3 [facility] Comment on above: Result Comment: Maria D min K Antagonist (VKA) Therapeutic Range: INR 2 to 3 (Target INR of 2.5) Note: For patients treated with VKA drugs, such as warfarin, the [place] [employer] 2012 Guideline recommends [...] Chest 2012, 141:7S-47S Deo GARLAND et al. [facility] 2017, 70: 252-289 Performed By: #### P RSCLT, PTT, PT, PRCFUN #### [facility] [address] [place], [place] [address] CNOVSPon 04-12-2019 CNOVSP Visit (SP) Office ([place]) LOYDA ADAME ([id number]) 2000 F Date Time Provider Department 04/12/19 4:15 PM FORD MORGAN) HEMASA During your visit today, we recorded the following information about you: Temperature Pulse Respiration Blood pressure 97.8 degrees 90/minute 18/minute 119/74 Weight Height 56.7 kg 1.632 m Ford Morgan MD 04/12/2019 4:48 PM Signed PATIENT NAME: Loyda Adame CLINIC NO.: [id number] ATTENDING PHYSICIAN: Ford Morgan MD DATE OF [...] Ford Morgan M.D. 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] Order(s):ACTIVATED PTT [SQPTT] Order #: [id number] FUTURE PROTHROMBIN TIME/PT [SQPT] Order #: [id number] FUTURE TUBES - DRAW EXTRA [SQXTUBE] Order #: [id number] FUTURE PROTEIN C FUNCT [SQPRCFUN] Order #: [id number] FUTURE PROTEIN S CLOTTABLE [SQPRSCLT] Order #: [id number] FUTURE Follow-up and Disposition History Recorded Prescriptions as of 04/12/2019 Sig: NORGESTIMATE 0.25 MG-ETHINYL * Take 1 tablet by mouth once d* Problem List As Of Date: 04/12/2019 (None) Encounter Status:Closed by FORD MORGAN MD on 04/12/19 Normal [facility] PROGRESSon 04-12-2019 PROGRESS HNO ID: [id number] Author: Ford Morgan Service: ? Author Type: Physician Type: Progress Notes Filed: 04/12/2019 4:48 PM Note Text: PATIENT NAME: Loyda Adame [facility] NO.: [id number] ATTENDING PHYSICIAN: Ford Morgan MD DATE OF [...] below. Ford Morgan M.D. Hematology/Medical Oncology [facility] [place] [phone] CC: Normal [facility] Encounters Encounter Date Encounter Type Care [...] results Start: 04-22-2023 End: 04-22-2023 ambulatory RAFAELA BAUTISTAER Not Available Start: 04-14-2023 End: 04-14-2023 ambulatory ROSALVA WELSH Not Available Start: 07-15-2022 End: 07-16-2022 ambulatory RACHEL SHETH Facility:[facility] Start: 02-04-2022 End: 02-05-[address] ROSALVA WELSH . Facility:[facility] Start: 10-29-2021 Encounter for preprocedural laboratory examination DR ROSALVA WELSH . [facility] Start: 10-25-2021 End: 10-25-[address] ROSALVA WELSH . Facility:[facility] Start: 10-23-2021 End: 10-24-[address] ROSALVA WELSH . Facility:[facility] Start: 10-23-2021 End: 10-24-2021 Encounter for preprocedural laboratory examination DR ROSALVA WELSH . Facility:[facility] Start: 10-22-2021 Encounter for other preprocedural examination DR ROSALVA WELSH . [facility] Start: 10-17-2021 End: 10-18-[address] ROSALVA WELSH . Facility: Start: 10-17-2021 End: 10-18-2021 Encounter for other preprocedural examination DR ROSALVA WELSH . Facility:[facility] Start: 10-09-2021 End: 10-10-[address] ROSALVA WELSH . Facility:[facility] Start: 10-08-2021 End: 10-09-[address] ROSALVA WELSH . Facility: Plan of Treatment Date Care Activity Detail Author Start: 12-15-2023 End: 12-15-2023 Patient encounter procedure 12/15/2023 11:00 AM EDT Office Visit [facility] [address] [place] [address] Rosalva Welsh DO [address] [address] [facility] Start: 05-11-2023 End: 05-11-2023 Patient encounter procedure 05/11/2023 4:05 PM EST Office Visit [facility] [address] [place] [address] Rafaela Encarnacion, BIOMEDICAL INSTRUMENT TECHNICIAN-SEARCH ENGINE OPTIMIZATION SPECIALIST [address] [place] [address] [facility] Start: 11-28-2022 Influenza vaccination Influenza Vacc ine (#1) [facility] Immunizations Immunization Date Immunization Notes Care Provider Fa cili 01-09-2022 influenza virus vacc ine, unspecified formulation Rosalva Welsh DO Work Phone: [facility] Payers Date Payer Category Payer Unknown BCBS BCBS [id number] 2022-Present [phone] [address] [place] [address] [id number] 2022 Unknown [id number] 2000 Unknown [id number] 2000 Unknown [id number] [id number] 1999 Unknown [id number] [id number] 1999 Unknown [id number] [id number] 1999 Unknown [id number] 2.16.840.1.311356.3.579.2.593 1999 Unknown [id number] 2.16.840.1.901893.3.579.2.593 1999 Unknown [id number] 2.16.840.1.079516.3.579.2.1259 1999 Unknown [id number] 2.16.840.1.913109.3.579.2.1259 1999 Unknown [id number] 2.16.840.1.426044.3.579.2.1259 1999 Unknown [id number] 2.16.840.1.478463.3.579.2.1259 1999 Unknown [id number] [id number] 1960 Self-pay 1960 Unknown [id number] Unknown [id number] [id number] Social History Date Type Detail Facility Start: 09-03-2022 Tobacco smoking stat [facility] Never smoked tobacco [facility] Start: 09-03-2022 Tobacco use and exposure Smokeless t obacco non-user [facility] Start: 04-22-2023 Alcohol intake Lifetime non-d mariza (finding) [facility] Start: 04-22-2023 History of Social function [facility] Start: 01-24-2024 Tobacco use panel [facility] Start: 2000 Sex Assigned At Female [facility] Start: 08-27-2022 Gender identity Identifies as female gender (finding) [facility] Start: 08-27-2022 Sexual orientation Heterosexual (christen gee) [facility] History of Present illness Narrative 05-05-2023 Gina Edouard, FINANCE LECTURER - 05/05/2023 8:10 AM EST Note Date & Type Note Facility 05-05-2023 History of Presen t illness Narrative Reason for Appointment: Patient ID: Loyda Adame is a 23 y.o. female who presents for Results Patient presents today via telephone call for a telehealth appointment. Patients Phone #: [phone] (mobile) Current Medications: has a current medication list which includes the following prescription(s): bupropion xl, cetirizine, duloxetine, fluocinonide, ibuprofen, ketoconazole, mirtazapine, norgestimate-ethinyl estradiol, phentermine, quetiapine, quetiapine, and vraylar. Medical History: Active Ambulatory Problems Diagnosis Date Noted Pelvic pain in female 04/10/2023 Resolved Ambulatory Problems Diagnosis Date Noted No Resolved Ambulatory Problems Past Medical History: Diagnosis Date Abnormal uterine bleeding (AUB) Anxiety and depression ([facility]) Anxiety disorder DUB (dysfunctional uterine bleeding) Dysmenorrhea Endometriosis Menorrhagia Menstrual irregularity Nonsmoker Protein S deficiency ([facility]) Family History Problem Relation Name [...] negaitve TONSILLECTOMY 03/27/2010 WISDOM TOOTH EXTRACTION 01/26/2016 Yoder teeth No Known Allergies Vitals: Estimated body [...] Rosalva Welsh DO documented in this encounter [facility] Clinical Note 10-25-2021 Note Date & Type Note Facility 10-25-2021 Note OPERATIVE NOTE OPERATION DATE: 11/01/2021 PROCEDURE: Diagnostic laparoscopy with chromopertubation. PREOPERATIVE DIAGNOSIS: 1. Pelvic pain. 2. Possible tubal dysfunction. POSTOPERATIVE DIAGNOSIS: 1. Pelvic pain. 2. Possible tubal dysfunction. ANESTHESIA: General. SURGEON: Rosalva Welsh D.O. BOOKY: DUC [place] URINE OUTPUT: Yellow and clear. [...] to Recovery Room in stable condition [facility] Evaluation note Note Date & Type Note [...] and content) DATE CREATED AUTHOR 05/18/2019 [facility] DATE CREATED AUTHOR AUTHOR'S ORGANIZ ATION 07/20/2022 [facility] DATE CREATED AUTHOR AUTHOR'S ORGANIZ ATION 09/07/2023 [facility] EPIC Reason for Visit (unrecogniz ed section and content) Reason Comments Results Care Teams (unrecognized sec tion and content) System Controller Relationship Specialty Start Date End Date Shaw Jorgensen MD [address] [place] [id number] PCP - General Family Medicine 09/03/22 FOR [...] BE BASED ON THE PRIMARY CLINICAL RECORDS. [employer] provides no warranty or guarantee of the accuracy or completeness of information in this document.
== END 2023-12-12 09:16 | disposition home or self-care (01) ==
LOC: US 09:16
PROVIDERS: PCP Family Medicine; Visit Provider Family Medicine
DX: R10.11 Right upper quadrant pain (principal); K80.20 Calculus of gallbladder without cholecystitis without obstruction
CPT/HCPCS: 76705

== ENCOUNTER 2024-01-14 11:25 | Outpatient (OUT) | payer SELFPAY ==
--- OUTSIDE RECORDS SUMMARY | 2024-01-14 11:29 | XMS_ITS | CCD ---
Author Organization [facility] CliniSyhi Care Team Providers Care Farm Marketer Name Role Phone JASON ., DR BLACKWELL [...] SHETH Admitting Unavailable RACHEL SHETH Attending Unavailable JAMEEL ., DR HAY Primary Care Unavailable RACHEL SHETH Consulting Unavailable JASON ., DR BLACKWELL Admitting Unavailable JASON ., DR BLACKWELL Attending Unavailable JAMEEL ., DR HAY Primary Care Unavailable AHASN, DR NIKO Selby Consulting Unavailable Shaw Jorgensen MD Primary Care Provider [phone] ROSALVA WELSH Attending Unavailable RAFAELA ENCARNACION Attending Unavailable RAFAELA ENCARNACION Attending Unavailable ROSALVA WELSH Attending Unavailable ROSALVA WELSH Attending Unavailable Israel POND Attending Unavailable Shaw Jorgensen Referring Unavailable Shaw Jorgensen Primary Care Physician Allergies Allergy Classification Reported Allergen(s) Allergy Type Date of Onset Reaction(s) Facility (1 source) No Known Medication Allergies; Translations: [No Known Medication Allergies] Propensity to adverse reactions (disorder) [facility] Repository Medications Current Medications Medication Drug Class(es) Dates Sig (Normalized) Sig (Original) cetirizine hydrochloride 10 mg oral tablet (2 sources) Histamine-1 Receptor Antagonist Start: 12-25-2023 take 1 tablet by mouth once daily cetirizine 10 mg Tab 10 mg = 1 tab(s), Oral, Daily, Refills(s) 0 Start Date: 12/25/23 Status: Ordered cetirizine (ZyrT EC) 10 MG tablet 1 (one) time each day at the same time. 0 Active DULoxetine 60 mg delayed release oral capsule (1 source) Serotonin and Norepinephrine Reuptake Inhibitor take 1 capsule by mouth in the morning DULoxetine (Cymbalta) [address] capsule Take 60 mg by mouth in the morning. 0 Active duloxetine 60 mg Cap-DR (1 source) Start: 12-25-19 take 2 capsules by mouth once daily duloxetine 60 mg Cap-DR = 2 cap(s), Oral, Daily, Refills(s) 0 Start Date: 12/25/23 Status: Ordered fluocinonide 0.5 mg/ml topical solution (1 source) Corticosteroid Start: 04-22-19 fluocinonide (Lidex) 0.05 % external solution Indications: Other seborrheic dermatitis Apply to affected areas on the scalp, up to twice a day when flared, 30 day supply 60 mL 04/22/2023 Active ibuprofen 800 mg oral tablet (1 source) Nonsteroidal Anti-inflammatory Drug Start: 07-02-19 ibuprofen 800 MG tablet TAKE 1 TABLET BY MOUTH EVERY 6 TO 8 HOURS NEEDED 0 07/01/2022 Active ketoconazole 20 mg/ml medicated shampoo (1 source) Azole Antifungal Start: 04-23-19 End: 05-23-19 ketoconazole (NIZOral) 2 % shampoo Indications: Other seborrheic dermatitis Apply topically 2 (two) times a week Lather on scalp 2x a week, leave on 5 min before rinsing 120 mL 04/23/2023 05/23/2023 Active QUEtiapine 50 mg oral tablet (3 sources) Atypical Antipsychotic Start: 12-25-19 take 3 tablets by mouth once daily quetiapine 50 mg oral tablet 150 mg = 3 tab(s), Oral, Daily, Refills(s) 0 Start Date: 12/25/23 Status: Ordered Start: 03-08-2023 take 2 tablets by mo ut in the morning QUEtiapine (SEROquel) 50 MG tablet Take 100 mg by mouth in the morning. 0 03/08/2023 Active Start: 03-15-2022 End: 05-05-2023 QUEtiapine (SEROquel) 25 MG tablet rOPINIRole 5 mg oral tablet (1 source) Nonergot Dopamine Agonist Start: 12-25-2023 take 1 tablet by mouth at bedtime ropinirole 5 mg oral tablet 5 mg = 1 tab(s), Oral, Bedtime, Refills(s) 0 Start Date: 12/25/23 Status: Ordered Completed/Discontinued Medications Medication Drug Class(es) Dates Sig [...] Active Problems Problem Classification Problem Date Documented Date Episodic/Chronic Abdominal pain (5 sources) Pelvic and perineal pain; Translations: [Pain in female pelvis] Onset: 10-25-2021 Episodic Administrative/social admission (5 sources) Encounter for pre-employment examination; Translations: [Follow-up status] Onset: 07-15-2022 Episodic Attention-deficit, conduct, and disruptive behavior disorders (1 source) Attention deficit hyperactivity disorder, 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 Biliary tract disease (3 sources) Cholelithiasis without obstruction; Translations: [Calculus of gallbladder without cholecystitis without obstruction] Onset: 12-31-2023 Episodic Menstrual disorders (2 sources) Excessive and frequent menstruation with irregular cycle; Translations: [Dysmenorrhea, unspecified] Onset: 11-04-2021 Chronic Mood disorders (1 source) Depressive disorder 12-25-2023 Chronic Other acquired deformities (1 source) Scoliosis deformity of spine 12-25-2023 Chronic Other female genital disorders (1 source) Abnormal uterine and vaginal bleeding, unspecified; Translations: [ABNORMAL UTERINE VAGINAL BLEED UNS] Onset: 11-04-2021 Chronic Other nutritional; endocrine; and metabolic disorders (1 source) Overweight 12-25-2023 Episodic Other nutritional; endocrine; and metabolic disorders (1 source) Overweight in adulthood with body mass index of 25 or more but less than 30 12-31-2023 Episodic Other skin disorders (1 source) Alopecia 12-25-2023 Episodic Other upper respiratory disease (1 source) Seasonal allergic rhinitis 12-25-2023 Chronic Residual codes; unclassified (1 source) Insomnia 12-25-2023 Episodic Unclassified (1 source) CONTACT W/AND (SUSP) EXPOS [...] Name Value Interpretation Reference Range Facil ity Ambulatory Visit Summaryon 1 Ambulatory Visit Summary Ambulatory Visit Summary LOYDA ADAME :2000 Visit Date:12/31/2023 Ambulatory Visit Instructions Your Care Team Attending Physician - DEJAH ARDON, Israel Gonzalez Primary Care Physician - Jameel ARDON, Shaw Referring Physician - Shaw Jorgensen MD This Is Your Medications List Contact prescribing physician if questions or concerns cetirizine (cetirizine 10 mg Tab) duloxetine (duloxetine 60 mg Cap-DR) quetiapine (quetiapine 50 mg oral tablet) ropinirole (ropinirole 5 mg oral tablet) Procedures Performed Laparoscopy, Removal of foreign body from foot, Tonsillectomy and adenoidectomy. Discharge Vitals Heart Rate (Peripheral) 81 Respiratory Rate 16 Blood Pressure 120/87 Height 165 cm Height 65 in Weight 79.1 kg Weight 174.02 lb BMI 29.05 Medications What How Much When Instructions Unchanged cetirizine (cetirizine 10 mg Tab) 1 Tablets By Mouth Every day Contact prescribing physician if questions or concerns Unchanged duloxetine (duloxetine 60 mg Cap-DR) 2 Capsules By Mouth Every day Contact prescribing physician if questions or concerns Unchanged quetiapine (quetiapine 50 mg oral tablet) 3 Tablets By Mouth Every day Contact prescribing physician if questions or concerns Unchanged ropinirole (ropinirole 5 mg oral tablet) 1 Tablets By Mouth At bedtime Contact prescribing physician if questions or concerns Allergies No Known Allergies No Known Medication Allergies Problems Ongoing - Any problem that you are currently receiving treatment for. ADD (attention deficit disorder) Alopecia BMI 29.0-29.9,adult Cholelithiasis Depression Insomnia Overweight Scoliosis deformity of spine Seasonal allergic rhinitis Patient Survey You may receive a survey via text or e-mail asking about your office visit. Please share your experience with us by completing your survey. We appreciate your feedback and thank you for choosing us for your care. Normal [facility] QUANTIFERON TB GOLD PLUSon 0 07-17-2022 QuantiFERON Criteria Comment Normal [facility] Comment on above: Result Comment: Yon [...] test. Performed By: #### Q NTTB #### [facility] [address] [place] [address] Dr. Elie Milan QuantiFERON Incubation Incubation performed. Normal [facility] Comment on above: Performed By: #### Q NTTB #### [facility] [address] [place] [address] Dr. Elie Milan QuantiFERON Mitogen Value >10.00 Normal [facility] Comment on above: Performed By: #### Q NTTB #### [facility] [address] [place] [address] Dr. Elie Milan QuantiFERON Nil Value 0.05 IU/mL Normal [facility] Comment on above: Performed By: #### Q NTTB #### [facility] [address] [place] [address] Dr. Elie Milan QuantiFERON TB1 Ag Value 0.06 IU/mL Normal [facility] Comment on above: Performed By: #### Q NTTB #### [facility] [address] [place] [address] Dr. Elie Milan QuantiFERON TB2 Ag Value 0.07 IU/mL Normal [facility] Comment on above: Performed By: #### Q NTTB #### [facility] [address] [place] [address] Dr. Elie Milan QuantiFERON-TB Gold Plus Negative Normal Negative [facility] Comment on above: Result Comment: No r esponse to M tuberculosis antigens detected. Infection with M tuberculosis is unlikely, but high risk individuals should be considered for additional testing (ATS/IDSA/CDC Clinical Practice Guidelines, 2017). The reference range is an Antigen minus Nil result of <0.35 IU/mL. Chemiluminescence immunoassay methodology Performed By: #### Q NTTB #### [facility] [address] [place] [address] Dr. Elie Milan HEPATITIS B SURFACE ANTIBODY , QUANTon 07-16-2022 Hepatitis B Surf AB Quant <3.1 Critically low Immunity>9.9 [facility] Comment on above: Result Comment: Stat us of Immunity Anti-HBs Level Inconsistent with Immunity 0.0 - 9.9 Consistent with Immunity >9.9 Performed By: #### H EPBSRF #### [facility] [address] [place] [address] Dr. Elie Milan MMR IMMUNITYon 07-16-2022 Mumps Abs, IgG 261.0 AU/mL Normal Immune >10.9 [facility] Comment on above: Result Comment: Nega tive <9.0 Equivocal 9.0 - 10.9 Positive >10.9 A positive result generally indicates past exposure to Mumps virus or previous vaccination. Performed By: #### M MRIMMU #### [facility] [address] [place] [address] Dr. Elie Milan Rubella Antibodies, IgG 3.97 index Normal Immune >0.99 [facility] Comment on above: Result Comment: Non- immune <0.90 Equivocal 0.90 - 0.99 Immune >0.99 Performed By: #### M MRIMMU #### [facility] [address] [place] [address] Dr. Elie Milan Rubeola Ab, IgG >300.0 Normal Immune >16.4 [facility] Comment on above: Result Comment: Nega tive <13.5 Equivocal 13.5 - 16.4 Positive >16.4 Presence of antibodies to Rubeola is presumptive evidence of immunity except when acute infection is suspected. Performed By: #### M MRIMMU #### [facility] [address] [place] [address] Dr. Elie Milan VARICELLA IGG ABon 04-19-202 3 Varicella Zoster IgG 1549 index Normal Immune >165 [facility] Comment on above: Result Comment: Nega tive <135 Equivocal 135 - 165 Positive >165 A positive result generally indicates exposure to the pathogen or administration of specific immunoglobulins, but it is not indication of active infection or stage of disease. Performed By: #### V ARCEL #### [facility] [address] [address] [address] Elie Milan US PELVIS AND TRANSVAGon [...] NIKO FOREMAN Date: 2022-02-04 20:13 Normal [facility] HCG-BETA SUBUNIT QUANTon hCG,Beta Subunit,Qnt,Serum <1 Normal [facility] Comment on above: Result Comment: Fema le (Non-) 0 - 5 (Postmenopausal) 0 - 8 . Female () Weeks of Gestation 3 6 - 71 4 10 - 750 5 546 - 6672 6 158 - 37036 7 0040 -574113 8 65902 -308372 9 67550 -296216 10 98146 -460927 12 78431 -899778 14 05917 - 93903 15 30662 - 45356 16 6600 - 01952 17 8055 - 64679 18 8242 - 53452 Tanesha ECLIA methodology Performed By: #### H CGSUB #### [facility] [address] [address] [address] Elie Milan CBC AUTO DIFFon 10-23-2021 BASO # 0.1 103/ul Normal 0.0-0.1 [facility] Comment on above: Performed By: #### C BC #### [facility] [address] [address] [address] Elie Milan Basophils/100 WBC (Bld) 1.1 % Normal 0.2-2.0 [facility] Comment on above: Performed By: #### C BC #### [facility] [address] [address] [address] Elie Milan EO # 0.3 103/ul Normal 0.0-0.7 [facility] Comment on above: Performed By: #### C BC #### [facility] [address] [place] [address] Dr. Elie Milan Eosinophils/100 WBC (Bld) 4.6 % Normal 0.9-7.0 [facility] Comment on above: Performed By: #### C BC #### [facility] [address] [place] [address] Dr. Elie Milan Erythrocyte distribution width (RBC) [Ratio] 11.9 % Normal 11.0-15.0 [facility] Comment on above: Performed By: #### C BC #### [facility] [address] [place] [address] Dr. Elie Milan Hematocrit (Bld) [Volume fraction] 41.0 % Normal 36.0-48.0 [facility] Comment on above: Performed By: #### C BC #### [facility] [address] [place] [address] Dr. Elie Milan Hemoglobin (Bld) [Mass/Vol] 14.0 g/dL Normal 12.0-16.0 [facility] Comment on above: Performed By: #### C BC #### [facility] [address] [place] [address] Dr. Elie Milan IG # 0.02 10e3/ul Normal 0.00-0.03 [facility] Comment on above: Performed By: #### C BC #### [facility] [address] [place] [address] Dr. Elie Milan IG % 0.3 % Normal 0.0-0.5 [facility] Comment on above: Performed By: #### C BC #### [facility] [address] [place] [address] Dr. Elie Milan LYMPH # 1.3 103/ul Normal 1.2-3.8 [facility] Comment on above: Performed By: #### C BC #### [facility] [address] [place] [address] Dr. Elie Milan Lymphocytes/100 WBC (Bld) 17.9 % Critically low 20.5-60.0 [facility] Comment on above: Performed By: #### C BC #### [facility] [address] [place] [address] Dr. Elie Milan MANUAL DIFF REQ NO Normal [facility] Comment on above: Performed By: #### C BC #### [facility] [address] [place] [address] Dr. Elie Milan MCH (RBC) [Entitic mass] 30.9 pg Normal 26.7-34.0 [facility] Comment on above: Performed By: #### C BC #### [facility] [address] [place] [address] Dr. Elie Milan MCHC (RBC) [Mass/Vol] 34.1 g/dL Normal 29.9-35.2 [facility] Comment on above: Performed By: #### C BC #### [facility] [address] [place] [address] Dr. Elie Milan MCV (RBC) [Entitic vol] 90.5 fL Normal 81.0-99.0 [facility] Comment on above: Performed By: #### C BC #### [facility] [address] [place] [address] Dr. Elie Milan MONO # 0.5 103/ul Normal 0.3-0.8 [facility] Comment on above: Performed By: #### C BC #### [facility] [address] [place] [address] Dr. Elie iMlan Monocytes/100 WBC (Bld) 7.3 % Normal 1.7-12.0 [facility] Comment on above: Performed By: #### C BC #### [facility] [address] [place] [address] Dr. Elie Milan NEUT # 4.8 103/ul Normal 1.4-6.5 [facility] Comment on above: Performed By: #### C BC #### [facility] [address] [place] [address] Dr. Elie Milan Neutrophils/100 WBC (Bld) 68.8 % Normal 43.0-75.0 [facility] Comment on above: Performed By: #### C BC #### [facility] [address] [place] [address] Dr. Elie Milan Platelet mean volume (Bld) [Entitic vol] 9.9 fL Normal 9.5-13.5 [facility] Comment on above: Performed By: #### C BC #### [facility] [address] [place] [address] Dr. Elie Milan PLT 223 103/ul Normal 150-450 [facility] Comment on above: Performed By: #### C BC #### [facility] [address] [place] [address] Dr. Eile Milan RBC 4.53 106/ul Normal 4.20-5.40 [facility] Comment on above: Performed By: #### C BC #### [facility] [address] [place] [address] Dr. Elie Milan WBC 7.0 103/ul Normal 4.0-11.0 [facility] Comment on above: Performed By: #### C BC #### [facility] [address] [place] [address] Dr. Elie Milan HCG-BETA SUBUNIT QUANTon hCG,Beta Subunit,Qnt,Serum <1 Normal [facility] Comment on above: Result Comment: Fema le (Non-) 0 - 5 (Postmenopausal) 0 - 8 . Female () Weeks of Gestation 3 6 - 71 4 10 - 476 5 563 - 1733 6 922 - 43106 7 0836 -993768 8 31637 -712636 9 74508 -536337 10 10022 -490545 12 37016 -331250 14 67709 - 38630 15 55471 - 47410 16 9040 - 03965 17 6893 - 32139 18 6995 - 33571 Tanesha ECLIA methodology Performed By: #### H CGSUB #### [facility] [address] [place] [address] Dr. Elie Milan US PELVIS TRANSVAGon 022 [...] NIKO FOREMAN Date: 2021-10-08 16:31 Normal [facility] CNOVSPon 05-17-2019 CNOVSP Visit (SP) Office (IFTIKHAR) LOYDA ADAME ([id number]) 2000 F Date Time Provider Department 05/17/19 10:45 AM FORD MORGAN) IFTIKHAR During your visit today, we recorded the following information about you: Temperature Pulse Respiration Blood pressure 98.2 degrees 86/minute 18/minute 121/71 Weight Height 56.8 kg 1.632 m Ford Morgan MD 05/17/2019 2:07 PM Signed PATIENT NAME: Loyda Adame CLINIC NO.: [id number] ATTENDING PHYSICIAN: Ford Morgan MD DATE OF SERVICE: May 17, 2019 This document has been created with the use of voice recognition technology. It may contain inaccuracies, misspellings, inaccurate syntax or inappropriate word context that escaped review. Dear Dr. Ford Morgan MD [address] [place], [place] [id number] here is an update on a follow [...] do not hesitate to contact me at [phone]. Ford Morgan MD Hematology/Medical Oncology [facility] CC: Shaw Jorgensen Referring Provider: FORD MORGAN) [[id number]] Allergies As of Date: 05/17/2019 (No Known [...] Status:Closed by FORD MORGAN MD on 05/17/19 [facility] PROGRESSon 05-17-2019 PROGRESS HNO ID: [id number] Author: Ford Morel) Cathy Service: ? Author Type: Physician Type: Progress Notes Filed: 05/17/2019 2:07 PM Note Text: PATIENT NAME: Loyda Adame CLINIC NO.: [id number] ATTENDING PHYSICIAN: Ford Morgan MD DATE OF SERVICE: May 17, 2019 This document has been created with the use of voice recognition technology. It may contain inaccuracies, misspellings, inaccurate syntax or inappropriate word context that escaped review. Dear Dr. Ford Morgan MD [address] [place] [address] here is an update on a follow [...] do not hesitate to contact me at [phone]. Ford Morgan MD Hematology/Medical Oncology [facility] CC: Shaw Jorgensen Normal [facility] APTTon 05-10-2019 aPTT Coag (Bld) [Time] 27.1 s Normal 23.0-32.4 [facility] Comment on above: Result Comment: Unfr [...] laboratory APTT reagent in use throughout the [facility]. Performed By: #### P RSCLT, PTT, PT, PRCFUN #### [facility] [address], [place] [id number] Protein C Functionalon 05-10 Protein [Mass/Vol] 89 % Normal 76-147 [facility] Comment on above: Performed By: #### P RSCLT, PTT, PT, PRCFUN #### [facility] [address], [place] [id number] Protein S Clottableon 2019 Protein S Clottable 58 % Low 59-131 [facility] Comment on above: Result Comment: Resu [...] PTT, PT, PRCFUN #### [facility] [address] [address] Protimeon 05-10-2019 PT Coag (PPP) [Time] 10.2 s Normal 9.7-13.0 [facility] Comment on above: Performed By: #### P RSCLT, PTT, PT, PRCFUN #### [facility] [address] [place], [place] [address] PT Coag (PPP) [Time] 0.9 s Normal 0.9-1.3 [facility] Comment on above: Result Comment: Maria D min K Antagonist (VKA) Therapeutic Range: INR 2 to 3 (Target INR of 2.5) Note: For patients treated with VKA drugs, such as warfarin, the [place] [employer] 2012 Guideline recommends [...] Chest 2012, 141:7S-47S Deo RA, et al. [facility] 2017, 70: 252-289 Performed By: #### P RSCLT, PTT, PT, PRCFUN #### [facility] [address] [place], [place] [address] CNOVSPon 04-12-2019 OVS Visit (SP) Office (HEMASA) LOYDA ADAME ([id number]) 2000 F Date Time Provider Department 04/12/19 4:15 PM FORD MORGAN) HEMJOLYNN During your visit today, we recorded the following information about you: Temperature Pulse Respiration Blood pressure 97.8 degrees 90/minute 18/minute 119/74 Weight Height 56.7 kg 1.632 m Ford Morgan MD 04/12/2019 4:48 PM Signed PATIENT NAME: Loyda Adame CLINIC NO.: [id number] ATTENDING PHYSICIAN: Ford Morgan MD DATE OF [...] number below. Ford Morgan M.D. 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] Order(s):ACTIVATED PTT [SQPTT] Order #: [id number] FUTURE PROTHROMBIN TIME/PT [SQPT] Order #: [id number] FUTURE TUBES - DRAW EXTRA [SQXTUBE] Order #: [id number] FUTURE PROTEIN C FUNCT [SQPRCFUN] Order #: [id number] FUTURE PROTEIN S CLOTTABLE [SQPRSCLT] Order #: [id number] FUTURE Follow-up and Disposition History Recorded Prescriptions as of 04/12/2019 Sig: NORGESTIMATE 0.25 MG-ETHINYL * Take 1 tablet by mouth once d* Problem List As Of Date: 04/12/2019 (None) Encounter Status:Closed by FORD MORGAN MD on 04/12/19 Normal [facility] PROGRESSon 04-12-2019 PROGRESS HNO ID: [id number] Author: Ford Morel) Cathy Service: ? Author Type: Physician Type: Progress Notes Filed: 04/12/2019 4:48 PM Note Text: PATIENT NAME: Loyda Adame [facility] NO.: [id number] ATTENDING PHYSICIAN: Ford Morgan MD DATE OF [...] me to participate in [facility]oyda [facility], if there are any questions or concerns please do not hesitate to contact me at the number below. Ford Morgan M.D. Hematology/Medical Oncology [facility] [phone] CC: Normal [facility] Vital Signs Date Time Vital Sign Value Performing Clinician Camilo klein 12-31-2023 08:48-0400 Blood Pressure Location [place] N[place] [facility] 12-31-2023 08:48-0400 Diastolic blood pressure 87 mm[Hg] [place] N[place] [facility] 12-31-2023 08:48-0400 Heart rate 81 /min [place] NILL [facility] 12-31-2023 08:48-0400 Respiratory rate 16 /min [place] NILL [facility] 12-31-2023 08:48-0400 Systolic blood pressure 120 mm[Hg] [place] NILL [facility] Encounters Encounter Date Encounter Type Care Provider Facility Start: 12-31-2023 End: 12-31-2023 ambulatory [place] POND Facility:[facility] Start: 12-31-2023 End: 12-31-2023 Patient encounter procedure [place] POND [facility] Start: 12-25-2023 ambulatory [place] NILCamelia Facility:[facility] Start: 09-07-2023 End: 09-07-2023 ambulatory ROSALVA JASON Not Available Start: 08-03-2023 End: 08-03-2023 ambulatory ROSALVA JASON Not Available Start: 05-19-2023 End: 05-19-2023 ambulatory [...] laboratory examination DR ROSALVA WELSH . [facility] Start: 10-25-2021 End: 10-25-[address] ROSALVA WELSH . Facility: Start: 10-23-2021 End: 10-24-[address] ROSALVA WELSH . Facility:[facility] Start: 10-23-2021 End: 10-24-2021 Encounter for preprocedural laboratory examination DR ROSALVA WELSH . Facility:[facility] Start: 10-22-2021 Encounter for other preprocedural examination DR ROSALVA WELSH . [facility] Start: 10-17-2021 End: 10-18-[address] ROSALVA WELSH . Facility: Start: 10-17-2021 End: 10-18-2021 Encounter for other preprocedural examination DR ROSALVA WELSH . Facility:[facility]1 Start: 10-09-2021 End: 10-10-[address] ROSALVA WELSH . Facility:[facility] Start: 10-08-2021 End: 10-09-[address] ROSALVA WELSH . Facility: Procedures Date Procedure Procedure Detail Performing Clinician Laparoscopy [place] POND Removal of foreign body from foot [place] POND Tonsillectomy and adenoidectomy [place] POND Plan of Treatment Date Care Activity Detail Author Start: 12-15-2023 End: 12-15-2023 Patient encounter procedure 12/15/2023 11:00 AM EDT Office Visit [facility] [address] [place] [id number] Rosalva Welsh, DO [address] [place], [place] [id number] [facility] Start: 05-11-2023 End: 05-11-2023 Patient encounter procedure 05/11/2023 4:05 PM EST Office Visit [facility] [address] [place] [id number] Rafaela Encarnacion, P[employer]IC [employer]ER[employer] [address] [place] [address] [facility] Start: 11-28-2022 Influenza vaccination Influenza Vacc ine (#1) [facility] Immunizations Immunization Date Immunization Notes Care Provider Fa [facility] 03-10-2022 SARS-CoV-2 (COVID-19 ) [id number] [place] POND [facility] 01-09-2022 influenza virus vaccine, unspecified formulation Rosalva Welsh DO Work Phone: [facility] 09-07-2020 SARS-CoV-2 (COVID-19 ) mRNA BNT-162b2 vax [employer] [facility] Comment on above: Result Comment: 2023: [facility] 08-17-2020 SARS-CoV-2 (COVID-19 ) mRNA BNT-162b2 vax [employer] [facility] Comment on above: Result Comment: 2023: TPVAL Payers Date Payer Category Payer Unknown [id number] 2022 Unknown BCBS BCBS [id number] [id number] 2022-Present [phone] [address] [id number] 2022 Unknown [id number] 1999 Unknown [id number] [id number] 1999 Unknown [id number] 2.16.840.1.914910.3.579.2.593 1999 Unknown [id number] 2.16.840.1.628933.3.579.2.593 1999 Unknown [id number] 2.16.840.1.621373.3.579.2.593 1999 Unknown [id number] 2.16.840.1.769838.3.579.2.593 1999 Unknown [id number] 2.16.840.1.592011.3.579.2.593 1999 Unknown [id number] 2.16.840.1.580248.3.579.2.1259 1999 Unknown [id number] 2.16.840.1.854567.3.579.2.1259 1999 Unknown [id number] 2.16.840.1.862162.3.579.2.1259 1999 Unknown [id number] 2.16.840.1.700953.3.579.2.1259 1999 Unknown [id number] 2.16.840.1.813823.3.579.2.1259 1999 Unknown [id number] 2.16.840.1.893445.3.579.2.727 1959 Self-pay 1959 Unknown [id number] Unknown [id number] Social History Date Type Detail Facility Start: 09-03-2022 End: 12-31-2023 Tobacco smoking status NDIS Never smoked tobacco [facility] Start: 06-07-2023 Tobacco use and exposure Smokeless tobacco non-user [facility] Start: 04-22-2023 Alcohol intake Lifetime non-drinker (finding) [facility] Start: 04-22-2023 History of Social function [facility] Start: 04-22-2023 Tobacco use panel [facility] Start: 1999 Sex Assigned At Female [facility] Start: 08-27-2022 Gender identity Identifies as female gender (finding) [facility] Start: 08-27-2022 Sexual orientation Heterosexual (finding) [facility] Tobacco smoking status Former sm okeless tobacco user, quit more than 30 days ago [facility] Functional Status Date Assessment Result Facility 12-31-2023 Functional Status N/A [facility] Evaluation + Plan note 12-31-2023 Note Date & Type Note Facility 12-31-2023 Evaluation + Plan note Diagnostic Tests PendingHepatic Function Panel 12/31/23 [facility] Clinical Note 12-31-2023 Note Date & Type Note Facility 12-31-2023 Note General Surgery Offi ce/Clinic Note Chief Complaint consultation for cholelithiasis HPI Staff 23 year old female presents on consultation from Dr. Jorgensen for cholelithiasis. Reports one month history of intermittent but daily right sided pain. Describes pain as stabbing. Reports associated nausea. Denies vomiting or bowel changes. RUQ US completed 12/11 with cholelithiasis. History of Present Illness 23 yo female with h/o ADD, depression, insomnia, scoliosis, referred for cholelithiasis; patient reports 1 month h/o intermittent RUQ pain, nausea, worse after fatty foods; sharp, ache, radiates to shoulder; lasts several hours, no relieving factors; no emesis, no bowel changes, no fevers; recent RUQ US with multiple small stones, no GB wall thickening or ductal dilation; no h/o jaundice or pancreatitis; abdominal operations significant for laparoscopy; no asa or NSAID use; no tobacco use. Review of Systems PHQ Score Initial Depression Screen Score: 0 SCORE ROS - Provider Constitutional: no fever, no sweats, no weight loss. Eyes: no glasses, no blurred vision, no visual loss. ENMT: no dentures, no hoarseness, no swallowing difficulties, no hearing loss, no ear infection(s), no nose bleeds. Cardiovascular: normal blood pressure, no chest pain, regular heartbeat, no heart murmur. Respiratory: no shortness of breath, no cough, no asthma, no wheezing. Gastrointestinal: no nausea, no vomiting, no diarrhea, no constipation, no blood in stool, no change in bowel habits, no abdominal pain, no hepatitis. Genitourinary: no kidney stones, no urine infection, no dysuria. Musculoskeletal: no pain, no weakness. Skin: no changing moles, no rash, no skin lumps. Neurologic: no seizures, no epilepsy, no headache. Psychiatric: no emotional or psychiatric problem. Heme/Lymph: no bleeding problems, no anemia, no blood clots, no transfusions. Allergy/Immunologic: no swollen lymph nodes/glands, no IV drug abuse. Other: Additional ROS info: Except as noted in the above Review of Systems and in the History of Present Illness, all other systems have been reviewed and are negative or noncontributory. Physical Exam Vitals & Measurements HR: 81(Peripheral) RR: 16 BP: 120/87 HT: 65 in HT: 165 cm WT: 79.1 kg WT: 174.02 lb BMI: 29.05 HEENT: normal conjunctiva, sclera clear, no scleral icterus, EOM intact, PERRLA, oral mucosa moist without lesions. Neck: trachea midline, no mass, symmetric, no thyromegaly or nodules, no adenopathy Respiratory: lungs CTA, respirations non labored. Cardiovascular: regular rate and rhythm, no murmur, no pedal edema or varicosities. Gastrointestinal: soft, non distended, mild tenderness, epigastrium and RUQ, no peritoneal signs no masses, no palpable hernias, diastasis recti no, no hepatosplenomegaly; normal bs Lymphatic: no cervical adenopathy, no supraclavicular adenopathy. Musculoskeletal: normal gait, digits and nails without infection, nodes, cyanosis, clubbing. Skin: no rashes, no lesions, no ulcers, no subcutaneous nodules, induration. Psychiatric/Neuro: oriented to time, place, person, judgement normal, affect appropriate for age, insight intact, no focal deficits. Tests: , x-rays reviewed, review of old records completed , Discussed surgical options, risks, and possible complications with patient. Assessment/Plan 1. Symptomatic cholelithiasis (K80.20: Calculus of gallbladder without cholecystitis without obstruction) plan Laparoscopic cholecystectomy with possible intraoperative cholangiogram, informed consent obtained. Unasyn 3 gms IV prior to OR SCDs Ordered: Hepatic Function Panel Follow-up No qualifying data available Problem List/Past Medical History Ongoing ADD (attention deficit disorder) Alopecia BMI 29.0-29.9,adult Cholelithiasis Depression Insomnia Overweight Scoliosis deformity of spine Seasonal allergic rhinitis Symptomatic cholelithiasis Historical No qualifying data Procedure/Surgical History Laparoscopy, Removal of foreign body from foot, Tonsillectomy and adenoidectomy. Medications cetirizine 10 mg Tab, 10 mg= 1 tab(s), Oral, Daily duloxetine 60 mg Cap-DR, 2 cap(s), Oral, Daily quetiapine 50 mg oral tablet, 150 mg= 3 tab(s), Oral, Daily ropinirole 5 mg oral tablet, 5 mg= 1 tab(s), Oral, Bedtime Allergies No Known Allergies No Known Medication Allergies Social History Alcohol - Denies Alcohol Use, 12/31/2023 Substance Abuse - Denies Substance Abuse, 12/31/2023 Tobacco Never (less than 100 in lifetime) Tobacco Use:. Former smokeless tobacco user, quit more than 30 days ago Smokeless Tobacco Use:. Vaping, Started age 13.0 Years. Stopped age 16 Years., 12/31/2023 Family History Patient was adopted Family history is unknown Immunizations Vaccine Date Status Comments SARS-CoV-2 (COVID-19) [id number] 03/10/2022 Recorded SARS-CoV-2 (COVID-19) mRNA BNT-162b2 vax 09/07/2020 Recorded 2023-12-25: TPVAL SARS-CoV-2 (COVID-19) m (more content not included)... [facility] Comment on above: Result Comment: Elec tronically Signed By: DEJAH ARDON, Israel Oh\Date and Time Signed: 12/31/23 09:48 EDT History of Present illness Narrative 05-05-2023 Gina Edouard LPN - 05/05/2023 8:10 AM EST Note Date & Type Note Facility 02-06-2024 History of Presen t illness Narrative Reason for Appointment: Patient ID: Loyda Adame is a 23 y.o. female who presents for Results Patient presents today via telephone call for a telehealth appointment. Patients Phone #: [phone] (mobile) Current Medications: has a current medication list which includes the following prescription(s): bupropion xl, cetirizine, duloxetine, fluocinonide, ibuprofen, ketoconazole, mirtazapine, norgestimate-ethinyl estradiol, phentermine, quetiapine, quetiapine, and vraylar. Medical History: Active Ambulatory Problems Diagnosis Date Noted Pelvic pain in female 04/10/2023 Resolved Ambulatory Problems Diagnosis Date Noted No Resolved Ambulatory Problems Past Medical History: Diagnosis Date Abnormal uterine bleeding (AUB) Anxiety and depression ([facility]) Anxiety disorder DUB (dysfunctional uterine bleeding) Dysmenorrhea Endometriosis Menorrhagia Menstrual irregularity Nonsmoker Protein S deficiency ([facility]) Family History Problem Relation Name [...] negaitve TONSILLECTOMY 03/27/2010 WISDOM TOOTH EXTRACTION 01/26/2016 [place] teeth No Known Allergies Vitals: Estimated body [...] Rosalva Welsh DO documented in this encounter [facility] Clinical Note 10-25-2021 Note Date & Type Note Facility 10-25-2021 Note OPERATIVE NOTE OPERATION DATE: 11/01/2021 PROCEDURE: Diagnostic laparoscopy with chromopertubation. PREOPERATIVE DIAGNOSIS: 1. Pelvic pain. 2. Possible tubal dysfunction. POSTOPERATIVE DIAGNOSIS: 1. Pelvic pain. 2. Possible tubal dysfunction. ANESTHESIA: General. SURGEON: Rosalva Welsh D.O. PICKLE WATER PUMP OPERATOR: DUC Sherman URINE OUTPUT: Yellow and [...] to Recovery Room in stable condition [facility] Evaluation note Note Date & Type Note Facility Evaluation note Diagnosis Encounter to discuss test results Other specified counseling documented in this encounter [facility] Hospital course Narrative Note Date & Type Note Facility Hospital course Narrative No data available for this section [facility] Discharge instructions Note Date & Type Note Facility Hospital Discharge instructions No data available for this section [facility] [place] Progress note Note Date & Type Note Facility Progress note No data available for this section [facility] [place] Summary Purpose Family History No Family History Records FoundNo Family History Records FoundNo Family History Records FoundNo Family History Records Found No data available for this section Advance Directives No Advanced Directives Records FoundNo Advanced Directives Records FoundNo Advanced Directives Records FoundNo Advanced Directives Records Found Additional Source Comments INFORMATION SOURCE (unrecogn ized section and content) DATE CREATED AUTHOR 05/18/2019 [facility] DATE CREATED AUTHOR AUTHOR'S ORGANIZ ATION 07/20/2022 [facility] DATE CREATED AUTHOR AUTHOR'S ORGANIZ ATION 09/07/2023 [facility] EPIC DATE CREATED AUTHOR AUTHOR'S ORGANIZ ATION 01/02/2024 [facility] Reason for Visit (unrecogniz ed section and content) Reason Comments Results Care Teams (unrecognized sec tion and content) Personnel Name: Shaw Jorgensen MD Address: Address: [address] [place] [address] 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 [email or web address] [facility]. provides no warranty or guarantee of the accuracy or completeness of information in this document.
[2024-01-14 11:54] LABS: Basophils Absolute Auto 0.1 10^3/uL (0.0-0.1); Basophils Percent Auto 1.2 % (0.2-2.0); Eosinophils Absolute Auto 0.5 10^3/uL (0.0-0.7); Eosinophils Percent Auto 6.5 % (0.9-7.0); Hematocrit 41.1 % (36.0-48.0); Hemoglobin 13.9 g/dL (12.0-16.0); Immature Granulocytes Abs Auto 0.02 10^3/uL (0.00-0.03); Immature Granulocytes Pct Auto 0.3 % (0.0-0.5); Lymphocytes Absolute Auto 2.4 10^3/uL (1.2-3.8); Lymphocytes Percent Auto 30.5 % (20.5-60.0); Mean Corpuscular HGB Conc 33.8 g/dL (29.9-35.2); Mean Corpuscular Hemoglobin 30.7 pg (26.7-34.0); Mean Corpuscular Volume 90.7 fL (81.0-99.0); Mean Platelet Volume 9.8 fL (9.5-13.5); Monocytes Absolute Auto 0.6 10^3/uL (0.3-0.8); Monocytes Percent Auto 7.1 % (1.7-12.0); Neutrophils Absolute Auto 4.2 10^3/uL (1.4-6.5); Neutrophils Percent Auto 54.4 % (43.0-75.0); Platelet Count 287 10^3/uL (150-450); Red Blood Count 4.53 10^6/uL (4.20-5.40); Red Cell Distribution Width 11.9 % (11.0-15.0); White Blood Count 7.7 10^3/uL (4.0-11.0)
== END 2024-01-14 11:26 | disposition home or self-care (01) ==
PROVIDERS: PCP Family Medicine; Visit Provider Surgery
DX: Z01.812 Encounter for preprocedural laboratory examination (principal); K80.20 Calculus of gallbladder without cholecystitis without obstruction
CPT/HCPCS: 85025

== ENCOUNTER 2024-03-29 06:46 | Outpatient (OUT) | payer OTHER, SELFPAY ==
--- OUTSIDE RECORDS SUMMARY | 2024-03-29 06:48 | XMS_ITS | CCD ---
Author Organization [facility] CliniSywy Care Team Providers Care Information Technology Security Manager Name Role Phone ANITHA ., DR BLACKWELL Admitting Unavailable ANITHA ., DR BLACKWELL Attending Unavailable HOY ., DR HAY Primary Care Unavailable ANITHA ., DR BLACKWELL Admitting Unavailable ANITHA ., DR BLACKWELL Attending Unavailable HOY ., DR HAY Primary Care Unavailable ANITHA ., DR BLACKWELL Consulting Unavailable ANITHA ., DR BLACKWELL Admitting Unavailable ANITHA ., DR BLACKWELL Attending Unavailable HOY ., DR HAY Primary Care Unavailable ANITHA ., DR BLACKWELL Consulting Unavailable AGUBOSIM, NIKKY Consulting Unavailable UL ALY Consulting Unavailable ANITHA ., DR BLACKWELL Admitting Unavailable ANITHA ., DR BLACKWELL Attending Unavailable HOY ., DR HAY Primary Care Unavailable ANITHA ., DR BLACKWELL Consulting Unavailable ANITHA ., DR BLACKWELL Admitting Unavailable ANITHA ., DR BLACKWELL Attending Unavailable HOY ., DR HAY Primary Care Unavailable AHSAN, DR NIKO Selby Consulting Unavailable ANITHA ., DR BLACKWELL Consulting Unavailable RACHEL SHETH Admitting Unavailable RACHEL SHETH Attending Unavailable JAIR ., DR HAY Primary Care Unavailable RACHEL SHETH Consulting Unavailable ANITHA ., DR BLACKWELL Admitting Unavailable ANITHA ., DR BLACKWELL Attending Unavailable CHIY ., DR HAY Primary Care Unavailable AHSAN, DR NIKO Selby Consulting Unavailable Shaw Jorgensen MD Primary Care Provider Shaw Jorgensen Primary Care Physician ROSALVA WELSH Attending Unavailable RAFAELA ENCARNACION Attending Unavailable RAFAELA ENCARNACION Attending Unavailable ROSALVA WELSH Attending Unavailable ROSALVA WELSH Attending Unavailable Anatoly PARK Attending Unavailable Israel POND Attending Unavailable Shaw Jorgensen Referring Unavailable Allergies Allergy Classification Reported Allergen(s) Allergy Type Date of Onset Reaction(s) Facility (1 source) No Known Medication Allergies; Translations: [No Known Medication Allergies] Propensity to adverse reactions (disorder) [facility] Repository Medications Current Medications Medication Drug Class(es) Dates Sig (Normalized) Sig (Original) cetirizine hydrochloride 10 mg oral tablet (4 sources) Histamine-1 Receptor Antagonist Start: 12-25-2023 take 1 tablet by mouth once daily cetirizine 10 mg Tab 10 mg = 1 tab(s), Oral, Daily, Refills(s) 0 Start Date: 12/25/23 Status: Ordered DULoxetine 60 mg delayed release oral capsule (3 sources) Serotonin and Norepinephrine Reuptake Inhibitor take 1 capsule by mouth in the morning DULoxetine (Cymbalta) [address] capsule Take 60 mg by mouth in the morning. Active duloxetine 60 mg Cap-DR (1 source) Start: 12-25-2023 take 2 capsules by mouth once daily duloxetine 60 mg Cap-DR = 2 cap(s), Oral, Daily, Refills(s) 0 Start Date: 12/25/23 Status: Ordered fluocinonide 0.5 mg/ml topical solution (3 sources) Corticosteroid Start: 04-22-2023 fluocinonide (Lidex) 0.05 % external solution Indications: Other seborrheic dermatitis Apply to affected areas on the scalp, up to twice a day when flared, 30 day supply 60 mL 11 04/22/2023 Active ibuprofen 800 mg oral tablet (3 sources) Nonsteroidal Anti-inflammatory Drug Start: 07-01-2022 ibuprofen 800 MG tablet TAKE 1 TABLET BY MOUTH EVERY 6 TO 8 HOURS NEEDED 07/01/2022 Active ketoconazole 20 mg/ml medicated shampoo (1 source) Azole Antifungal Start: 04-23-2023 End: 05-23-2023 ketoconazole (NIZOral) 2 % shampoo Indications: Other seborrheic dermatitis Apply topically 2 (two) times a week Lather on scalp 2x a week, leave on 5 min before rinsing 120 mL 11 04/23/2023 05/23/2023 Active QUEtiapine 50 mg oral tablet (5 sources) Atypical Antipsychotic Start: 12-25-2023 take 3 tablets by mouth once daily quetiapine 50 mg oral tablet 150 mg = 3 tab(s), Oral, Daily, Refills(s) 0 Start Date: 12/25/23 Status: Ordered Start: 03-08-2023 take 2 tablets by mo uth in the morning QUEtiapine (SEROquel) 50 MG tablet Take 100 mg by mouth in the morning. 03/08/2023 Active Start: 03-15-2022 End: 05-05-2023 QUEtiapine (SEROquel) 25 MG tablet Lgmhmwmrb-Xmcjprmrt-Kulaywva d (Myfembree) 40-1-0.5 MG tablet (2 sources) Start: 09-07-2023 take 1 tablet by mouth once daily Kfbscgfne-Jlzlsfvmk-Vibdurdqa (Myfembree) 40-1-0.5 MG tablet Indications: Endometriosis Take 1 tablet by mouth Daily 30 tablet 6 09/07/2023 Active rOPINIRole 5 mg oral tablet (3 sources) Nonerg ot Dopami ne Agonis t Start: 12-25-2023 take 1 tablet by mouth [...] Problem Classification Problem Date Documented Date Episodic/Chronic Administrative/social admission (7 sources) Encounter for pre-employment examination; Translations: [Follow-up [...] Date Documented Da te Episodic/Chronic Abdominal pain (7 sources) Pelvic and perineal pain; Translations: [Pain in female pelvis] Onset: 10-25-2021 Episodic Other female genital disorders [...] ARDON, Israel Gonzalez Primary Care Physician - Shaw Jorgensen MD Referring Physician - Shaw Jorgensen MD This [...] for choosing us for your care. Normal [facility] QUANTIFERON TB GOLD PLUSon 0 07-17-2022 QuantiFERON Criteria Comment Normal [facility] Comment on above: Result Comment: Yon [...] test. Performed By: #### Q NTTB #### [facility] [address] [place] [address] Dr. Elie Milan QuantiFERON Incubation Incubation performed. Normal [facility] Comment on above: Performed By: #### Q NTTB #### [facility] [address] [place] [address] Dr. Elie Milan QuantiFERON Mitogen Value >10.00 [facility] Comment on above: Performed By: #### Q NTTB #### [facility] [address] [place] [address] Dr. Elie Milan QuantiFERON Nil Value 0.05 IU/mL [facility] Comment on above: Performed By: #### Q NTTB #### [facility] [address] [place] [address] Dr. Elie Milan QuantiFERON TB1 Ag Value 0.06 IU/mL [facility] Comment on above: Performed By: #### Q NTTB #### [facility] [address] [place] [address] Dr. Elie Mlian QuantiFERON TB2 Ag Value 0.07 IU/mL [facility] Comment on above: Performed By: #### Q NTTB #### [facility] [address] [place] [address] Dr. Elie Milan QuantiFERON-TB Gold Plus Negative Normal Negative [facility] Comment on above: Result Comment: No r esponse to M tuberculosis antigens detected. Infection with M tuberculosis is unlikely, but high risk individuals should be considered for additional testing (ATS/IDSA/CDC Clinical Practice Guidelines, 2017). The reference range is an Antigen minus Nil result of <0.35 IU/mL. Chemiluminescence immunoassay methodology Performed By: #### Q NTTB #### [facility] [address] [place] [address] Dr. Elie Milan HEPATITIS B SURFACE ANTIBODY , QUANTon 07-16-2022 Hepatitis B Surf AB Quant <3.1 Critically low Immunity>9.9 [facility] Comment on above: Result Comment: Stat us of Immunity Anti-HBs Level Inconsistent with Immunity 0.0 - 9.9 Consistent with Immunity >9.9 Performed By: #### H EPBSRF #### [facility] [address] [place] [address] Dr. Elie Milan MMR IMMUNITYon 07-16-2022 Mumps Abs, IgG 261.0 AU/mL Normal Immune >10.9 [facility] [place] Comment on above: Result Comment: Nega tive <9.0 Equivocal 9.0 - 10.9 Positive >10.9 A positive result generally indicates past exposure to Mumps virus or previous vaccination. Performed By: #### M MRIMMU #### [facility] [address] [place] [address] Dr. Elie Milan Rubella Antibodies, IgG 3.97 index Normal Immune >0.99 [facility] Comment on above: Result Comment: Non- immune <0.90 Equivocal 0.90 - 0.99 Immune >0.99 Performed By: #### M MRIMMU #### [facility] [address] [place] [address] Dr. Elie Milan Rubeola Ab, IgG >300.0 Normal Immune >16.4 [facility] [place] Comment on above: Result Comment: Nega tive <13.5 Equivocal 13.5 - 16.4 Positive >16.4 Presence of antibodies to Rubeola is presumptive evidence of immunity except when acute infection is suspected. Performed By: #### M MRIMMU #### [facility] [address] [place] [address] [address] [address] Elie Milan VARICELLA IGG ABon 3 Varicella Zoster IgG 1549 index Normal Immune >165 [facility] Comment on above: Result Comment: Nega tive <135 Equivocal 135 - 165 Positive >165 A positive result generally indicates exposure to the pathogen or administration of specific immunoglobulins, but it is not indication of active infection or stage of disease. Performed By: #### V ARCEL #### [facility] [address], [place] [address] Dr. Elie Milan US PELVIS AND TRANSVAGon [...] NIKO FOREMAN Date: 2022-02-04 20:13 Normal [facility] HCG-BETA SUBUNIT QUANTon hCG,Beta Subunit,Qnt,Serum <1 Normal [facility] Comment on above: Result Comment: Fema le (Non-) 0 - 5 (Postmenopausal) 0 - 8 . Female () Weeks of Gestation 3 6 - 71 4 10 - 750 5 582 - 2356 6 365 - 30555 7 2807 -763987 8 01744 -687895 9 107139 -890333 10 91075 -006163 12 03880 -603254 14 46012 - 29046 15 60122 - 19821 16 2798 - 89230 17 4517 - 53195 18 2031 - 75339 Tanesha ECLIA methodology Performed By: #### H CGSUB #### [facility] [address] [place] [address] Dr. Elie Milan CBC AUTO DIFFon 10-23-2021 BASO # 0.1 103/ul Normal 0.0-0.1 [facility] Comment on above: Performed By: #### C BC #### [facility] [address] [place] [address] Dr. Elie Milan Basophils/100 WBC (Bld) 1.1 % Normal 0.2-2.0 [facility] Comment on above: Performed By: #### C BC #### [facility] [address] [place] [address] Dr. Elie Milan EO # 0.3 103/ul Normal 0.0-0.7 [facility] Comment on above: Performed By: #### C BC #### [facility] [address] [place] [address] Dr. Elie Milan Eosinophils/100 WBC (Bld) 4.6 % Normal 0.9-7.0 [facility] Comment on above: Performed By: #### C BC #### [facility] [address] [place] [address] Dr. Elie Milan Erythrocyte distribution width (RBC) [Ratio] 11.9 % Normal 11.0-15.0 [facility] Comment on above: Performed By: #### C BC #### [facility] [address] [place] [address] Dr. Elie Milan Hematocrit (Bld) [Volume fraction] 41.0 % Normal 36.0-48.0 [facility] Comment on above: Performed By: #### C BC #### [facility] [address] [place] [address] Dr. Elie Milan Hemoglobin (Bld) [Mass/Vol] 14.0 g/dL Normal 12.0-16.0 [facility] Comment on above: Performed By: #### C BC #### [facility] [address] [place] [address] Dr. Elie Milan IG # 0.02 10e3/ul Normal 0.00-0.03 [facility] Comment on above: Performed By: #### C BC #### [facility] [address] [place] [address] Dr. Elie Milan IG % 0.3 % Normal 0.0-0.5 [facility] Comment on above: Performed By: #### C BC #### [facility] [address] [place] [address] Dr. Elie Milan LYMPH # 1.3 103/ul Normal 1.2-3.8 [facility] Comment on above: Performed By: #### C BC #### [facility] [address] [place] [address] Dr. Elie Milan Lymphocytes/100 WBC (Bld) 17.9 % Critically low 20.5-60.0 [facility] Comment on above: Performed By: #### C BC #### [facility] [address] [place] [address] Dr. Elie Milan MANUAL DIFF REQ NO Normal [facility] Comment on above: Performed By: #### C BC #### [facility] [address] [place] [address] Dr. Elie Milan MCH (RBC) [Entitic mass] 30.9 pg Normal 26.7-34.0 [facility] Comment on above: Performed By: #### C BC #### [facility] [address] [place] [address] Dr. Elie Milan MCHC (RBC) [Mass/Vol] 34.1 g/dL Normal 29.9-35.2 [facility] Comment on above: Performed By: #### C BC #### [facility] [address] [place] [address] Dr. Elie Milan MCV (RBC) [Entitic vol] 90.5 fL Normal 81.0-99.0 [facility] Comment on above: Performed By: #### C BC #### [facility] [address] [place] [address] Dr. Elie Milan MONO # 0.5 103/ul Normal 0.3-0.8 [facility] Comment on above: Performed By: #### C BC #### [facility] [address] [place] [address] [address] Elie Milan Monocytes/100 WBC (Bld) 7.3 % Normal 1.7-12.0 [facility] Comment on above: Performed By: #### C BC #### [facility] [address] [place] [address] Dr. Elie Milan NEUT # 4.8 103/ul Normal 1.4-6.5 [facility] Comment on above: Performed By: #### C BC #### [facility] [address] [place] [address] Dr. Elie Milan Neutrophils/100 WBC (Bld) 68.8 % Normal 43.0-75.0 [facility] Comment on above: Performed By: #### C BC #### [facility] [address] [place] [address] Dr. Elie Milan Platelet mean volume (Bld) [Entitic vol] 9.9 fL Normal 9.5-13.5 [facility] Comment on above: Performed By: #### C BC #### [facility] [address] [place] [address] Dr. Elie Milan PLT 223 103/ul Normal 150-450 [facility] Comment on above: Performed By: #### C BC #### [facility] [address] [place] [address] Dr. Elie Milan RBC 4.53 106/ul Normal 4.20-5.40 [facility] Comment on above: Performed By: #### C BC #### [facility] [address] [place] [address] Dr. Elie Milan WBC 7.0 103/ul Normal 4.0-11.0 [facility] Comment on above: Performed By: #### C BC #### [facility] [address] [place] [address] Dr. Elie Milan HCG-BETA SUBUNIT QUANTon hCG,Beta Subunit,Qnt,Serum <1 Normal [facility] Comment on above: Result Comment: Fema le (Non-) 0 - 5 (Postmenopausal) 0 - 8 . Female () Weeks of Gestation 3 6 - 71 4 10 - 750 5 234 - 0145 6 619 - 27184 7 3464 -478537 8 18484 -399063 9 22131 -809648 10 31134 -364454 12 94625 -971060 14 38766 - 52211 15 41807 - 48569 16 6627 - 29869 17 0543 - 25087 18 7837 - 15646 Tanesha ECLIA methodology Performed By: #### H CGSUB #### [facility] [address] [place] [address] Dr. Elie Milan US PELVIS TRANSVAGon 022 [...] NIKO FOREMAN Date: 2021-10-08 16:31 Normal [facility] CNOVSPon 05-17-2019 CNOVSP Visit (SP) Office ([place]) LOYDA ADAME ([id number]) 2000 F Date Time Provider Department 05/17/19 10:45 AM FORD MORGAN) IFTIKHAR During your visit today, we recorded the following information about you: Temperature Pulse Respiration Blood pressure 98.2 degrees 86/minute 18/minute 121/71 Weight Height 56.8 kg 1.632 m Ford Morgan MD 05/17/2019 2:07 PM Signed PATIENT NAME: Loyda Adame CLINIC NO.: [id number] ATTENDING PHYSICIAN: Ford Morgan MD DATE OF SERVICE: May 17, 2019 This document has been created with the use of voice recognition technology. It may contain inaccuracies, misspellings, inaccurate syntax or inappropriate word context that escaped review. Dear Dr. Ford Morgan MD [address] [place] [address] here is an update on a follow [...] do not hesitate to contact me at [phone]. Ford Morgan MD Hematology/Medical Oncology [facility] CC: Shaw Jorgensen Referring Provider: FORD MORGAN) [[id number]] Allergies As of Date: 05/17/2019 (No Known [...] Status:Closed by FORD MORGAN MD on 05/17/19 [facility] PROGRESSon 05-17-2019 PROGRESS HNO ID: [id number] Author: Ford Morel) Cathy Service: ? Author Type: Physician Type: Progress Notes Filed: 05/17/2019 2:07 PM Note Text: PATIENT NAME: Loyda Adame [facility] NO.: [id number] ATTENDING PHYSICIAN: Ford Morgan MD DATE OF SERVICE: May 17, 2019 This document has been created with the use of voice recognition technology. It may contain inaccuracies, misspellings, inaccurate syntax or inappropriate word context that escaped review. Dear Dr. Ford Morgan MD [address] [place] [address] here is an update on a follow [...] do not hesitate to contact me at [phone]. Ford Morgan MD Hematology/Medical Oncology [facility] CC: Shaw Jorgensen Normal [facility] APTTon 05-10-2019 aPTT Coag (Bld) [Time] 27.1 s Normal 23.0-32.4 [facility] Comment on above: Result Comment: Unfr actionated [...] laboratory APTT reagent in use throughout the [facility]. Performed By: #### P RSCLT, PTT, PT, PRCFUN #### [facility] [employer] [address] [place], [place] [address] Protein C Functionalon 05-10 Protein [Mass/Vol] 89 % Normal 76-147 [facility] Comment on above: Performed By: #### P RSCLT, PTT, PT, PRCFUN #### [facility] [address] [place], [place] [address] Protein S Clottableon 2019 Protein S Clottable 58 % Low 59-131 [facility] Comment on above: Result Comment: Resu lt [...] #### P RSCLT, PTT, PT, PRCFUN #### [facility] [employer] [address] [place], [place] [id number] Protimeon 05-10-2019 PT Coag (PPP) [Time] 10.2 s Normal 9.7-13.0 [facility] Comment on above: Performed By: #### P RSCLT, PTT, PT, PRCFUN #### [facility] [employer] [address] [place], [place] [id number] PT Coag (PPP) [Time] 0.9 s Normal 0.9-1.3 [facility] Comment on above: Result Comment: Maria D min K Antagonist (VKA) Therapeutic Range: INR 2 to 3 (Target INR of 2.5) Note: For patients treated with VKA drugs, such as warfarin, the [employer] 2012 Guideline recommends [...] Chest 2012, 141:7S-47S Deo RA, et al. [facility] 2017, 70: 252-289 Performed By: #### P RSCLT, PTT, PT, PRCFUN #### [facility] [address] [place], [place] [address] CNOVSPon 04-12-2019 CNOVSP Visit (SP) Office ([place]) LOYDA ADAME ([id number]) 2000 F Date Time Provider Department 04/12/19 4:15 PM FORD MORGAN) HEMASA During your visit today, we recorded the following information about you: Temperature Pulse Respiration Blood pressure 97.8 degrees 90/minute 18/minute 119/74 Weight Height 56.7 kg 1.632 m Ford Morgan MD 04/12/2019 4:48 PM Signed PATIENT NAME: Loyda Adame CLINIC NO.: [id number] ATTENDING PHYSICIAN: Ford Morgan MD DATE OF [...] Ford Morgan M.D. 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] Order(s):ACTIVATED PTT [SQPTT] Order #: [id number] FUTURE PROTHROMBIN TIME/PT [SQPT] Order #: [id number] FUTURE TUBES - DRAW EXTRA [SQXTUBE] Order #: [id number] FUTURE PROTEIN C FUNCT [SQPRCFUN] Order #: [id number] FUTURE PROTEIN S CLOTTABLE [SQPRSCLT] Order #: [id number] FUTURE Follow-up and Disposition History Recorded Prescriptions as of 04/12/2019 Sig: NORGESTIMATE 0.25 MG-ETHINYL * Take 1 tablet by mouth once d* Problem List As Of Date: 04/12/2019 (None) Encounter Status:Closed by FORD MORGAN MD on 04/12/19 Normal [facility] PROGRESSon 04-12-2019 PROGRESS HNO ID: [id number] Author: Ford Morgan Service: ? Author Type: Physician Type: Progress Notes Filed: 04/12/2019 4:48 PM Note Text: PATIENT NAME: Loyda Adame [facility] NO.: [id number] ATTENDING PHYSICIAN: Ford Morgan MD DATE OF [...] me to participate in Miss Loyda Adame [facility], if there are any questions or concerns please do not hesitate to contact me at the number below. Ford Morgan M.D. Hematology/Medical Oncology [facility] [place] [phone] CC: Normal [facility] Vital Signs Date Time Vital Sign Value Performing Clinician Camilo klein 12-31-2023 08:48-0400 Blood Pressure Location Israel DEJAH [facility] 12-31-2023 08:48-0400 Diastolic blood pressure 87 mm[Hg] Israel POND [facility] 12-31-2023 08:48-0400 Heart rate 81 /min BalaBitL [facility] 12-31-2023 08:48-0400 Respiratory rate 16 /min Israel POND [facility] 12-31-2023 08:48-0400 Systolic blood pressure 120 mm[Hg] Israel MALLORYSolulink [facility] Encounters Encounter Date Encounter Type Care Provider Facility Start: 03-24-2024 ambulatory [facility] Facilit y:[facility] Start: 02-01-2024 End: 02-01-2024 Patient encounter procedure Ki Lock DO Work Phone: [facility] Comment on above: Encounter for drug s creening Start: 02-01-2024 End: 02-01-2024 ambulatory ROSALVA WELSH Not Available Start: 01-14-2024 End: 01-14-2024 ambulatory [facility] Start: 12-31-2023 End: 12-31-2023 ambulatory Israel POND Facility:[facility] Start: 12-31-2023 End: 12-31-2023 Patient encounter procedure Israel POND [facility] [place] Start: 12-25-2023 ambulatory Anatoly Pichardo y: [place] Start: 09-07-2023 End: 09-07-2023 ambulatory ROSALVA ANITHA Not Available Start: 08-03-2023 End: 08-03-2023 ambulatory ROSALVA ANITHA Not Available Start: 05-19-2023 End: 05-19-2023 ambulatory RAFAELA A FELTER Not Available Start: 05-05-2023 End: 05-05-2023 Phys/qhp telephone evaluation 5-10 min Rosalva Anitha DO Work Phone: [facility] Comment on above: Encounter to discuss test results Start: 04-22-2023 End: 04-22-2023 ambulatory RAFAELA A FELTER Not Available Start: 04-14-2023 End: 04-14-2023 ambulatory ROSALVA ANITHA Not Available Start: 07-15-2022 End: 07-16-2022 ambulatory RACHEL SHETH Facility: Start: 02-04-2022 End: 02-05-[address] ROSALVA WELSH . Facility:[facility] Start: 10-29-2021 Encounter for preprocedural laboratory examination DR ROSALVA WELSH . [facility] Start: 10-25-2021 End: 10-25-[address] ROSALVA WELSH . Facility:[facility] Start: 10-23-2021 End: 10-24-[address] ROSALVA WELSH . Facility:[facility] Start: 10-23-2021 End: 10-24-2021 Encounter for preprocedural laboratory examination DR ROSALVA WELSH . Facility:[facility] Start: 10-22-2021 Encounter for other preprocedural examination DR ROSALVA WELSH . [facility] Start: 10-17-2021 End: 10-18-[address] ROSALVA WELSH . Facility:[facility] Start: 10-17-2021 End: 10-18-2021 Encounter for other preprocedural examination DR ROSALVA WELSH . Facility:[facility] Start: 10-09-2021 End: 10-10-[address] ROSALVA WELSH . Facility:[facility] Start: 10-08-2021 End: 10-09-[address] ROSALVA WELSH . Facility: Procedures Date Procedure Procedure Detail Performing Clinician Laparoscopy Israel DEJAH Removal of foreign body from foot Israel DEJAH Tonsillectomy and adenoidectomy Israel DEJAH Plan of Treatment Date Care Activity Detail Author Start: 05-19-2024 End: 05-19-2024 Patient encounter procedure 05/19/2024 3:55 PM EST Office Visit [facility] [address] [place] [address] Rafaela Encarnacion, BELLING MACHINE OPERATOR-FLASH WELDER [address] [place] [address] [facility] Start: 12-15-2023 End: 12-15-2023 Patient encounter procedure 12/15/2023 11:00 AM EDT Office Visit [facility] [address] [place] [id number] Rosalva Welsh, [address] [place], [place] [id number] [facility] Start: 11-29-2023 Influenza vaccination Influenza Vacc ine (#1) [facility] Start: 05-11-2023 End: 05-11-2023 Patient encounter procedure 05/11/2023 4:05 PM EST Office Visit [facility] [address] [place] [address] Rafaela Encarnacion, BELLING MACHINE OPERATOR-FLASH WELDER [address] [place] [address] [facility] Start: 11-28-2022 Influenza vaccination Influenza Vacc ine (#1) [facility] Immunizations Immunization Date Immunization Notes Care Provider Fa cility 03-10-2022 SARS-CoV-2 (COVID-19 ) [id number] Israel MALLORYL [facility] 01-09-2022 influenza virus vaccine, unspecified formulation Rosalvamanuel Welsh DO Work Phone: [facility] 09-07-2020 SARS-CoV-2 (COVID-19 ) mRNA BNT-162b2 vax Israel NILL [facility] Comment on above: Result Comment: 2023: [facility] 08-17-2020 SARS-CoV-2 (COVID-19 ) mRNA BNT-162b2 vax Israel MALLORYL [facility] Comment on above: Result Comment: 2023: TPVAL Payers Date Payer Category Payer Unknown [id number] 2022 Unknown BCBS BCBS [id number] [id number] 2022-Present [phone] [address] [place] [address] [id number] 2022 Unknown [id number] 1999 Unknown [id number] [id number]3 1999 Unknown [id number] 2.16.840.1.200111.3.579.2.593 1999 Unknown [id number] 2.16.840.1.384058.3.579.2.593 1999 Unknown [id number] 2.16.840.1.693064.3.579.2.593 1999 Unknown [id number] 2.16.840.1.928784.3.579.2.593 1999 Unknown [id number] 2.16.840.1.893544.3.579.2.593 1999 Unknown [id number] 2.16.840.1.431904.3.579.2.1259 1999 Unknown [id number] 2.16.840.1.583283.3.579.2.1259 1999 Unknown [id number] 2.16.840.1.985763.3.579.2.1259 1999 Unknown [id number] 2.16.840.1.318663.3.579.2.1259 1999 Unknown [id number] 2.16.840.1.472061.3.579.2.1259 1999 Unknown [id number] 2.16.840.1.739972.3.579.2.1259 1999 Unknown [id number] 2.16.840.1.239586.3.579.2.727 1959 Self-pay 1960 Unknown [id number] Unknown [id number] 2.16.840.1.739788.3.579.2.593 Social History Date Type Detail Facility Start: 09-03-2022 End: 12-31-2023 Tobacco smoking status WVIS Never smoked tobacco [facility] Start: 09-03-2022 Tobacco use and exposure Smokeless tobacco non-user [facility] Start: 04-22-2023 End: 09-07-2023 Alcohol intake Lifetime non-drinker (finding) [facility] Start: 04-22-2023 End: 05-19-2023 History of Social function [facility] Start: 04-22-2023 End: 05-19-2023 Tobacco use panel [facility] Start: 2000 Sex Assigned At Female [facility] Start: 08-27-2022 Gender identity Identifies as female gender (finding) [facility] Start: 08-27-2022 Sexual orientation Heterosexual (finding) [facility] Tobacco smoking status Former sm okeless tobacco user, quit more than 30 days ago [facility] Functional Status Date Assessment Result Facility 12-31-2023 Functional Status N/A [facility] History of Present illness Narrative 02-01-2024 Darren Jones MA - 02/01/2024 9:35 AM EST Note Date & Type Note Facility 02-01-2024 History of Presen t illness Narrative Pt presents today for a pre-employment 5 panel drug screen for [employer]. Pt verified by photo ID. documented in this encounter [facility] Evaluation + Plan note 12-31-2023 Note Date & Type Note Facility 12-31-2023 Evaluation + Plan note Diagnostic Tests PendingHepatic Function Panel 12/31/23 [facility] Clinical Note 12-31-2023 Note Date & Type Note Facility 12-31-[address] [facility]Cl[facility] Note Chief Complaint consultation [...] Immunizations Vaccine Date Status Comments SARS-CoV-2 (COVID-19) [id number].[id number] 03/10/2022 Recorded SARS-CoV-2 (COVID-19) mRNA BNT-162b2 vax 09/07/2020 Recorded 2023-12-25: [facility] SARS-CoV-2 (COVID-19) m (more content not included)... [facility] Comment on above: Result Comment: Elec tronically Signed By: DEJAH ARDON, Israel Gonzalez\liza\Date and Time Signed: 12/31/23 09:48 EDT History of Present illness Narrative 05-05-2023 Gina Edouard LPN - 05/05/2023 8:10 AM EST Note Date & Type Note Facility 05-05-2023 History of Presen t illness Narrative Reason for Appointment: Patient ID: Loyda Adame is a 23 y.o. female who presents for Results Patient presents today via telephone call for a telehealth appointment. Patients Phone #: [phone] (mobile) Current Medications: has a current medication list which includes the following prescription(s): bupropion xl, cetirizine, duloxetine, fluocinonide, ibuprofen, ketoconazole, mirtazapine, norgestimate-ethinyl estradiol, phentermine, quetiapine, quetiapine, and vraylar. Medical History: Active Ambulatory Problems Diagnosis Date Noted Pelvic pain in female 04/10/2023 Resolved Ambulatory Problems Diagnosis Date Noted No Resolved Ambulatory Problems Past Medical History: Diagnosis Date Abnormal uterine bleeding (AUB) Anxiety and depression ([facility]) Anxiety disorder DUB (dysfunctional uterine bleeding) Dysmenorrhea Endometriosis Menorrhagia Menstrual irregularity Nonsmoker Protein S deficiency ([facility]) Family History Problem Relation Name Age of [...] negaitve TONSILLECTOMY 03/27/2010 WISDOM TOOTH EXTRACTION 01/26/2016 [place] teeth No Known Allergies Vitals: Estimated body [...] Rosalva Welsh DO documented in this encounter [facility] Clinical Note 10-25-2021 Note Date & Type Note Facility 10-25-2021 Note OPERATIVE NOTE OPERATION DATE: 11/01/2021 PROCEDURE: Diagnostic laparoscopy with chromopertubation. PREOPERATIVE DIAGNOSIS: 1. Pelvic pain. 2. Possible tubal dysfunction. POSTOPERATIVE DIAGNOSIS: 1. Pelvic pain. 2. Possible tubal dysfunction. ANESTHESIA: General. SURGEON: Rosalva Welsh D.O. MACHINE TECHNICIAN: DUC Sherman URINE OUTPUT: Yellow and clear. [...] to Recovery Room in stable condition [facility] Evaluation note Note Date & Type Note Facility Evaluation note Diagnosis Encounter to discuss test results Other specified counseling documented in this encounter [facility] Evaluation note Note Date & Type Note Facility Evaluation note Diagnosis Encounter for drug screening documented in this encounter [facility] Hospital course Narrative Note Date & Type Note Facility Hospital course Narrative No data available for this section [facility] Discharge instructions Note Date & Type Note Facility Hospital Discharge instructions No data available for this section [facility] Progress note Note Date & Type Note Facility Progress note No data available for this section [facility] Summary Purpose Family History No Family History Records FoundNo Family History Records Found No data available for this section No Family History Records FoundNo Family History Records Found Advance Directives No Advanced Directives Records FoundNo Advanced Directives Records FoundNo Advanced Directives Records FoundNo Advanced Directives Records Found Additional Source Comments INFORMATION SOURCE (unrecogn ized section and content) DATE CREATED AUTHOR 05/18/2019 [facility] DATE CREATED AUTHOR AUTHOR'S ORGANIZ ATION 07/20/2022 [facility] DATE CREATED AUTHOR AUTHOR'S ORGANIZ ATION 02/02/2024 [facility] EPIC DATE CREATED AUTHOR AUTHOR'S ORGANIZ ATION 03/25/2024 [facility] Reason for Visit (unrecogniz ed section and content) Reason Comments Results Care Teams (unrecognized sec tion and content) Information Technology Security Manager Relationship Specialty Start Date End Date Shaw Jorgensen MD [address] [place] [address] PCP - General Family Medicine 09/03/22 Information Technology Security Manager Relationship Specialty Start Date End Date Shaw Jorgensen MD [address] [place] [address] PCP - General Family Medicine 09/03/22 FOR [...] BE BASED ON THE PRIMARY CLINICAL RECORDS. [facility] [facility]. provides no warranty or guarantee of the accuracy or completeness of information in this document.
--- NOTE | 2024-03-29 06:49 | US_ITS ---
The [address] [address] Patient Name: DONALD ADAME MRN: [id number] date: 2000 Sex: F Assigned Patient Location: US Current Patient Location: US Accession/Order Number: [id number] Exam Date: 03/29/2024 06:59 Report Date: 03/29/2024 07:45 At the request of: BHARTI ADAM Procedure: US right upper quadrant EXAM: US right upper quadrant HISTORY: right upper quadrant abdominal pain R10.11 COMPARISON: 12/12/2023 TECHNIQUE: Grayscale, color and Doppler FINDINGS: The liver is normal in size, contour and echotexture measuring 15.4 cm in length. No focal solid mass. Hepatopedal flow in the main portal vein. The gallbladder is normal in size. The wall measures 2.2 mm, normal. Negative sonographic Pacheco sign. Multiple echogenic foci, cholelithiasis. The common bile duct measures 2.8 mm, normal. The pancreas is normal in appearance The right kidney is normal measuring 11.1 x 4.3 x 4.4 cm. No free fluid US/US right upper quadrant IMPRESSION: Cholelithiasis without evidence of acute cholecystitis Electronically authenticated by: NIKO FOREMAN Date: 03/29/2024 07:45
== END 2024-03-29 06:47 | disposition home or self-care (01) ==
LOC: US 06:46
PROVIDERS: PCP Family Medicine; Visit Provider Family Medicine
DX: R10.11 Right upper quadrant pain (principal); K80.20 Calculus of gallbladder without cholecystitis without obstruction
CPT/HCPCS: 76705

== ENCOUNTER 2024-04-21 10:59 | Outpatient (OUT) | payer OTHER, SELFPAY ==
--- OUTSIDE RECORDS SUMMARY | 2024-04-21 11:16 | XMS_ITS | CCD ---
Author Organization [facility] [place] Care Team Providers Care Technical Designer Name Role Phone ANITHA ., DR BLACKWELL [...] Unavailable ANITHA ., DR BLACKWELL Consulting Unavailable AGUBOSIM NIKKY Consulting Unavailable LU ALY Consulting Unavailable ANITHA ., DR BLACKWELL [...] POND Attending Unavailable Shaw Jorgensen Referring Unavailable Israel POND Attending Unavailable XAVIER, Anatoly Attending Unavailable Allergies Allergy Classification Reported Allergen(s) Allergy Type Date of Onset Reaction(s) Facility (1 source) No Known Medication Allergies; Translations: [No Known Medication Allergies] Propensity to adverse reactions (disorder) [facility] Repository Medications Current Medications Medication Drug Class(es) Dates Sig (Normalized) Sig (Original) cetirizine hydrochloride 10 mg oral tablet (5 sources) Histamine-1 Receptor Antagonist Start: 12-25-2023 take [...] the morning. Active duloxetine 60 mg Cap-DR (2 sources) Start: 12-25-2023 take 2 capsules by mouth [...] day supply 60 mL 11 04/22/2023 Active hyoscyamine sulfate 0.125 mg sublingual tablet (1 source) Start: 04-06-2024 take 1 tablet under the tongue every four hours as needed for pain hyoscyamine 0.125 mg sublingual Tab 0.125 mg = 1 tab(s), SubLingual, q4hr, PRN abdominal pain, Refills(s) 0 Start Date: 04/06/24 Status: Ordered ibuprofen 800 mg oral tablet (3 sources) [...] rinsing 120 mL 11 04/23/2023 05/23/2023 Active pantoprazole 40 mg delayed release oral tablet (1 source) Proton Pump Inhibitor Start: 04-06-2024 take 1 tablet by mouth once daily Pantoprazole [address] Tab 40 mg = 1 tab(s), Oral, Daily, Refills(s) 0 Start Date: 04/06/24 Status: Ordered QUEtiapine 50 mg oral tablet (6 sources) Atypical Antipsychotic Start: 12-25-2023 take 1 tablet by mouth once daily quetiapine 50 mg oral tablet 50 mg = 1 tab(s), Oral, Daily, Refills(s) 0 Start Date: 12/25/23 Status: Ordered Start: 12-25-2023 take 3 tablets by mo uth once daily quetiapine 50 mg oral tablet 150 mg = 3 tab(s), Oral, Daily, Refills(s) 0 Start Date: 12/25/23 Status: Ordered Start: 03-08-2023 take 2 tablets by mo uth in the morning QUEtiapine (SEROquel) 50 MG tablet Take 100 mg by mouth in the morning. 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 Biliary tract disease (5 sources) Cholelithiasis without obstruction; Translations: [Calculus of gallbladder without cholecystitis without obstruction] Onset: 12-31-2023 Episodic Menstrual disorders (2 sources) Excessive and frequent menstruation with irregular cycle; Translations: [Dysmenorrhea, unspecified] Onset: 11-04-2021 Chronic Mood disorders (2 sources) Depressive disorder 12-25-2023 Chronic Other acquired deformities (2 sources) Scoliosis deformity of spine 12-25-2023 Chronic Other female genital disorders (1 source) Abnormal uterine and vaginal bleeding, unspecified; Translations: [ABNORMAL UTERINE VAGINAL BLEED UNS] Onset: 11-04-2021 Chronic Other nutritional; endocrine; and metabolic disorders (2 sources) Overweight 12-25-2023 Episodic Other nutritional; endocrine; and metabolic disorders (2 sources) Overweight in adulthood with body mass index of 25 or more but less than 30 12-31-2023 Episodic Other skin disorders (2 sources) Alopecia 12-25-2023 Episodic Other upper respiratory disease (2 sources) Seasonal allergic rhinitis 12-25-2023 Chronic Residual codes; unclassified (2 sources) Insomnia 12-25-2023 Episodic Unclassified (1 source) CONTACT [...] Results Test Name Value Interpretation Reference [facility] General Surgery Office/Clini c Noteon 04-11-2024 General Surgery Office/Clinic Note General Surgery Office/Clinic Note Chief Complaint update H&P for cholecystectomy HPI Staff Presents to update H&P for planned cholecystectomy. Last evaluation completed 12/31/23. Patient cancelled scheduled surgery due to loss of insurance. In the interim, patient continues to experience intermittent RUQ pain. History of Present Illness 24 yo female with h/o ADD, depression, insomnia, scoliosis, presents for symptomatic cholelithiasis; initially seen in December, was scheduled for cholecystectomy, but she lost her insurance; now presents for reevaluation; has had several episodes of upper abd pain/nausea, occasional emesis; no fevers; no h/o jaundice or pancreatitis; repeat US end of February unchanged, no wall thickening or ductal dilation; abdominal operations significant for laparoscopy; no asa [...] noncontributory. Physical Exam Vitals & Measurements HR: 87(Peripheral) RR: 16 BP: 106/74 HT: 65 in HT: 165 cm WT: 76.4 kg WT: 168.433 lb BMI: 28.06 HEENT: normal conjunctiva, sclera clear, no scleral icterus, EOM intact, PERRLA, oral mucosa moist without lesions. Neck: trachea midline, no mass, symmetric, no thyromegaly or nodules, no adenopathy Respiratory: lungs CTA, respirations non labored. Cardiovascular: regular rate and rhythm, no murmur, no pedal edema or varicosities. Gastrointestinal: soft, non distended, mild tenderness, epigastrium and RUQ no masses, no palpable hernias, diastasis recti no, no hepatosplenomegaly; normal bs Lymphatic: no cervical adenopathy, no supraclavicular adenopathy. Musculoskeletal: normal gait, digits and nails without infection, nodes, cyanosis, clubbing. Skin: no rashes, no lesions, no ulcers, no subcutaneous nodules, induration. Psychiatric/Neuro: oriented to time, place, person, judgement normal, affect appropriate for age, insight intact, no focal deficits. Tests:, x-rays reviewed, review of old records completed , Discussed surgical options, risks, and possible complications with patient. Assessment/Plan 1. Symptomatic cholelithiasis (K80.20: Calculus of gallbladder without cholecystitis without obstruction) plan Laparoscopic cholecystectomy with possible intraoperative cholangiogram; informed consent obtained. Unasyn 3 gms IV prior to OR SCDs Follow-up No qualifying data available Problem List/Past Medical History Ongoing ADD (attention deficit disorder) Alopecia BMI 28.0-28.9,adult Depression Insomnia Overweight Scoliosis deformity of spine Seasonal allergic rhinitis Symptomatic cholelithiasis Historical No qualifying data Procedure/Surgical History Laparoscopy, Removal of foreign body from foot, Tonsillectomy and adenoidectomy. Medications cetirizine 10 mg Tab, 10 mg= 1 tab(s), Oral, Daily duloxetine 60 mg Cap-DR, 2 cap(s), Oral, Daily hyoscyamine 0.125 mg sublingual Tab, 0.125 mg= 1 tab(s), SubLingual, q4hr, PRN Pantoprazole [address] Tab, 40 mg= 1 tab(s), Oral, Daily quetiapine 50 mg oral tablet, 50 mg= 1 tab(s), Oral, Daily ropinirole 5 mg oral tablet, 5 mg= 1 tab(s), Oral, Bedtime Allergies No Known Allergies No Known Medication Allergies Social History Alcohol - Denies Alcohol Use, 12/31/2023 Never., 04/09/2024 Substance Abuse - Denies Substance Abuse, 12/31/2023 Never., 04/09/2024 Tobacco Never (less than 100 in lifetime) Tobacco Use:. Never Smokeless Tobacco Use:., 04/11/2024 Family History Patient was adopted Family history is unknown Immunizations Vaccine Date Status Comments SARS-CoV-2 (COVID-19) [id number] 03/10/2022 Recorded SARS-CoV-2 (COVID-19) mRNA BNT-162b2 vax 09/07/2020 Recorded 2023-12-25: TPVAL SARS-CoV-2 (COVID-19) mRNA BNT-162b2 vax 08/17/2020 Recorded 2023-12-25: TPVAL Normal [facility] Comment on above: Result Comment: Elec tronically Signed By: DEJAH ARDON, Israel Gonzalez\.br\Date and Time Signed: 04/11/24 16:18 EST Ambulatory Visit Summaryon 1 Ambulatory Visit Summary [...] for choosing us for your care. Normal [facility] QUANTIFERON TB GOLD PLUSon 0 07-17-2022 QuantiFERON Criteria Comment Normal [facility] Comment on above: Result Comment: [...] test. Performed By: #### Q NTTB #### [facility] [address] [place] [address] Dr. Elie Milan QuantiFERON Incubation Incubation performed. Normal [facility] Comment on above: Performed By: #### Q NTTB #### [facility] [address] [place] [address] Dr. Elie Milan QuantiFERON Mitogen Value >10.00 Normal [facility] Comment on above: Performed By: #### Q NTTB #### [facility] [address] [place] [address] Dr. Eile Milan QuantiFERON Nil Value 0.05 IU/mL Normal [facility] Comment on above: Performed By: #### Q NTTB #### [facility] [address] [place] [address] Dr. Elie Milan QuantiFERON TB1 Ag Value 0.06 IU/mL Normal [facility] Comment on above: Performed By: #### Q NTTB #### [facility] [address] [place] [address] Dr. Elie Milan QuantiFERON TB2 Ag Value 0.07 IU/mL Normal [facility] Comment on above: Performed By: #### Q NTTB #### [facility] [address] [place] [address] Dr. Elie Milan QuantiFERON-TB Gold Plus Negative Normal Negative [facility] Comment on above: Result Comment: No r esponse to M tuberculosis antigens detected. Infection with M tuberculosis is unlikely, but high risk individuals should be considered for additional testing (ATS/IDSA/CDC Clinical Practice Guidelines, 2017). The reference range is an Antigen minus Nil result of <0.35 IU/mL. Chemiluminescence immunoassay methodology Performed By: #### Q NTTB #### [facility] [address] [place] [address] Dr. Elie Milan HEPATITIS B SURFACE ANTIBODY , QUANTon 07-16-2022 Hepatitis B Surf AB Quant <3.1 Critically low Immunity>9.9 [facility] Comment on above: Result Comment: Stat us of Immunity Anti-HBs Level Inconsistent with Immunity 0.0 - 9.9 Consistent with Immunity >9.9 Performed By: #### H EPBSRF #### [facility] [address] [place] [address] Dr. Elie Milan MMR IMMUNITYon 07-16-2022 Mumps Abs, IgG 261.0 AU/mL Normal Immune >10.9 [facility] Comment on above: Result Comment: Nega tive <9.0 Equivocal 9.0 - 10.9 Positive >10.9 A positive result generally indicates past exposure to Mumps virus or previous vaccination. Performed By: #### M MRIMMU #### [facility] [address] [place] [address] Dr. Elie Milan Rubella Antibodies, IgG 3.97 index Normal Immune >0.99 [facility] Comment on above: Result Comment: Non- immune <0.90 Equivocal 0.90 - 0.99 Immune >0.99 Performed By: #### M MRIMMU #### [facility] [address] [place] [address] Dr. Elie Milan Rubeola Ab, IgG >300.0 Normal Immune >16.4 [facility] Comment on above: Result Comment: Nega tive <13.5 Equivocal 13.5 - 16.4 Positive >16.4 Presence of antibodies to Rubeola is presumptive evidence of immunity except when acute infection is suspected. Performed By: #### M MRIMMU #### [facility] [address] [place] [address] Dr. Elie Milan VARICELLA IGG ABon 3 Varicella Zoster IgG 1549 index Normal Immune >165 [facility] Comment on above: Result Comment: Nega tive <135 Equivocal 135 - 165 Positive >165 A positive result generally indicates exposure to the pathogen or administration of specific immunoglobulins, but it is not indication of active infection or stage of disease. Performed By: #### V ARCEL #### [facility] [address] [address] [address] Elie Milan US PELVIS AND TRANSVAGon [...] NIKO FOREMAN Date: 2022-02-04 20:13 Normal [facility] HCG-BETA SUBUNIT QUANTon hCG,Beta Subunit,Qnt,Serum <1 Normal [facility] Comment on above: Result Comment: Fema le (Non-) 0 - 5 (Postmenopausal) 0 - 8 . Female () Weeks of Gestation 3 6 - 71 4 10 - 750 5 592 - 3438 6 113 - 22554 7 9272 -065363 8 39190 -362832 9 06227 -828724 10 78580 -011393 12 78465 -282028 14 25357 - 04499 15 28616 - 37831 16 4541 - 43217 17 0301 - 63331 18 9490 - 52408 Tanesha ECLIA methodology Performed By: #### H CGSUB #### [facility] [address] [address] [address] Elie Milan CBC AUTO DIFFon 10-23-2021 BASO # 0.1 103/ul Normal 0.0-0.1 [facility] Comment on above: Performed By: #### C BC #### [facility] [address] [place] [address] Dr. Elie Milan Basophils/100 WBC (Bld) 1.1 % Normal 0.2-2.0 [facility] Comment on above: Performed By: #### C BC #### [facility] [address] [place] [address] Dr. Elie Milan EO # 0.3 103/ul Normal 0.0-0.7 [facility] Comment on above: Performed By: #### C BC #### [facility] [address] [place] [address] Dr. Elie Milan Eosinophils/100 WBC (Bld) 4.6 % Normal 0.9-7.0 [facility] Comment on above: Performed By: #### C BC #### [facility] [address] [place] [address] Dr. Elie Milan Erythrocyte distribution width (RBC) [Ratio] 11.9 % Normal 11.0-15.0 [facility] Comment on above: Performed By: #### C BC #### [facility] [address] [place] [address] Dr. Elie Milan Hematocrit (Bld) [Volume fraction] 41.0 % Normal 36.0-48.0 [facility] Comment on above: Performed By: #### C BC #### [facility] [address] [place] [address] Dr. Elie Milan Hemoglobin (Bld) [Mass/Vol] 14.0 g/dL Normal 12.0-16.0 [facility] Comment on above: Performed By: #### C BC #### [facility] [address] [place] [address] Dr. Elie Milan IG # 0.02 10e3/ul Normal 0.00-0.03 [facility] Comment on above: Performed By: #### C BC #### [facility] [address] [place] [address] Dr. Elie Milan IG % 0.3 % Normal 0.0-0.5 [facility] Comment on above: Performed By: #### C BC #### [facility] [address] [place] [address] Dr. Elie Milan LYMPH # 1.3 103/ul Normal 1.2-3.8 [facility] Comment on above: Performed By: #### C BC #### [facility] [address] [place] [address] Dr. Elie Milan Lymphocytes/100 WBC (Bld) 17.9 % Critically low 20.5-60.0 [facility] Comment on above: Performed By: #### C BC #### [facility] [address] [place] [address] Dr. Elie Milan MANUAL DIFF REQ NO Normal [facility] Comment on above: Performed By: #### C BC #### [facility] [address] [place] [address] Dr. Elie Milan MCH (RBC) [Entitic mass] 30.9 pg Normal 26.7-34.0 [facility] Comment on above: Performed By: #### C BC #### [facility] [address] [place] [address] Dr. Elie Milan MCHC (RBC) [Mass/Vol] 34.1 g/dL Normal 29.9-35.2 [facility] Comment on above: Performed By: #### C BC #### [facility] [address] [place] [address] Dr. Elie Milan MCV (RBC) [Entitic vol] 90.5 fL Normal 81.0-99.0 [facility] Comment on above: Performed By: #### C BC #### [facility] [address] [place] [address] Dr. Elie Milan MONO # 0.5 103/ul Normal 0.3-0.8 [facility] Comment on above: Performed By: #### C BC #### [facility] [address] [place] [address] Dr. Elie Milan Monocytes/100 WBC (Bld) 7.3 % Normal 1.7-12.0 [facility] Comment on above: Performed By: #### C BC #### [facility] [address] [address] [address] Elie Milan NEUT # 4.8 103/ul Normal 1.4-6.5 [facility] Comment on above: Performed By: #### C BC #### [facility] [address] [place] [address] Dr. Elie Milan Neutrophils/100 WBC (Bld) 68.8 % Normal 43.0-75.0 [facility] Comment on above: Performed By: #### C BC #### [facility] [address] [place] [address] Dr. Elie Milan Platelet mean volume (Bld) [Entitic vol] 9.9 fL Normal 9.5-13.5 [facility] Comment on above: Performed By: #### C BC #### [facility] [address] [place] [address] Dr. Elie Milan PLT 223 103/ul Normal 150-450 [facility] Comment on above: Performed By: #### C BC #### [facility] [address] [place] [address] Dr. Elie Milan RBC 4.53 106/ul Normal 4.20-5.40 [facility] Comment on above: Performed By: #### C BC #### [facility] [address] [place] [address] Dr. Elie Milan WBC 7.0 103/ul Normal 4.0-11.0 [facility] Comment on above: Performed By: #### C BC #### [facility] [address] [place] [address] Dr. Elie Milan HCG-BETA SUBUNIT QUANTon hCG,Beta Subunit,Qnt,Serum <1 Normal [facility] Comment on above: Result Comment: Fema le (Non-) 0 - 5 (Postmenopausal) 0 - 8 . Female () Weeks of Gestation 3 6 - 71 4 10 - 750 5 496 - 6404 6 636 - 33630 7 2625 -307915 8 60970 -422999 9 57407 -429905 10 18765 -688547 12 85003 -755710 14 87968 - 33106 15 12409 - 14517 16 4155 - 45321 17 6308 - 29002 18 1072 - 28629 Tanesha ECLIA methodology Performed By: #### H CGSUB #### [facility] [address] [place] [address] Dr. Elie Milan US PELVIS TRANSVAGon 022 [...] by: NIKO FOREMAN Date: 2021-10-08 16:31 Normal [facility] CNOVSPon 05-17-2019 CNOVSP Visit (SP) Office (IFTIKHAR) LOYDA ADAME ([id number]) 2000 F Date Time Provider Department 05/17/19 10:45 AM FORD MORGAN) IFTIKHAR During your visit today, we recorded the following information about you: Temperature Pulse Respiration Blood pressure 98.2 degrees 86/minute 18/minute 121/71 Weight Height 56.8 kg 1.632 m Ford Morgan MD 05/17/2019 2:07 PM Signed PATIENT NAME: Loyda Adame CLINIC NO.: [id number] ATTENDING PHYSICIAN: Ford Morgan MD DATE OF SERVICE: May 17, 2019 This document has been created with the use of voice recognition technology. It may contain inaccuracies, misspellings, inaccurate syntax or inappropriate word context that escaped review. Dear Dr. Ford Morgan MD [address] [place] [address] here is an update on a follow [...] do not hesitate to contact me at [phone]. Ford Morgan MD Hematology/Medical Oncology [facility] CC: Shaw Jorgensen Referring Provider: FORD MORGAN) [[id number]] Allergies As of Date: 05/17/2019 (No Known Allergies) Date Reviewed: 05/17/2019 Reviewed by: Ford (Kar Morgan - Fully Assessed Reason for Visit: [...] Status:Closed by FORD MORGAN MD on 05/17/19 [facility] PROGRESSon 05-17-2019 PROGRESS HNO ID: [id number] Author: Ford Morgan Service: ? Author Type: Physician Type: Progress Notes Filed: 05/17/2019 2:07 PM Note Text: PATIENT NAME: Loyda Adame [facility] NO.: [id number] ATTENDING PHYSICIAN: Ford Morgan MD DATE OF SERVICE: May 17, 2019 This document has been created with the use of voice recognition technology. It may contain inaccuracies, misspellings, inaccurate syntax or inappropriate word context that escaped review. Dear Dr. Ford Morgan MD [address] [place] [address] here is an update on a follow [...] do not hesitate to contact me at [phone]. Ford Morgan MD Hematology/Medical Oncology [facility] CC: Shaw Jorgensen Normal [facility] APTTon 05-10-2019 aPTT Coag (Bld) [Time] 27.1 s Normal 23.0-32.4 [facility] Comment on [...] laboratory APTT reagent in use throughout the [facility]. Performed By: #### P RSCLT, PTT, PT, PRCFUN #### [facility] [address] [place], [place] [id number] Protein C Functionalon 05-10 Protein [Mass/Vol] 89 % Normal 76-147 [facility] Comment on above: Performed By: #### P RSCLT, PTT, PT, PRCFUN #### [facility] [address] [place], [place] [address] Protein S Clottableon 2019 Protein S Clottable 58 % Low 59-131 [facility] Comment on [...] #### P RSCLT, PTT, PT, PRCFUN #### [facility] [address] [id number] Protimeon 05-10-2019 PT Coag (PPP) [Time] 10.2 s Normal 9.7-13.0 [facility] Comment on above: Performed By: #### P RSCLT, PTT, PT, PRCFUN #### [address] [place], [place] [address] PT Coag (PPP) [Time] 0.9 s Normal 0.9-1.3 [facility] Comment on above: Result Comment: Maria D min K Antagonist (VKA) Therapeutic Range: INR 2 to 3 (Target INR of 2.5) Note: For patients treated with VKA drugs, such as warfarin, the [employer] 2012 Guideline recommends [...] 2012, 141:7S-47S Deo GARLAND et al. [facility] 2017, 70: 252-289 Performed By: #### P RSCLT, PTT, PT, PRCFUN #### [facility] [address] [id number] [phone] CNOVSPon 04-12-2019 [facility] Visit (SP) Office (HEMASA) LOYDA ADAME ([id number]) 2000 F Date Time Provider Department 04/12/19 4:15 PM FORD MORGAN) IFTIKHAR During your visit today, we recorded the following information about you: Temperature Pulse Respiration Blood pressure 97.8 degrees 90/minute 18/minute 119/74 Weight Height 56.7 kg 1.632 m Ford Morgan MD 04/12/2019 4:48 PM Signed PATIENT NAME: Loyda Adame CLINIC NO.: [id number] ATTENDING PHYSICIAN: Ford Morgan MD DATE OF [...] number below. Ford Morgan M.D. 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] Order(s):ACTIVATED PTT [SQPTT] Order #: [id number] FUTURE PROTHROMBIN TIME/PT [SQPT] Order #: [id number] FUTURE TUBES - DRAW EXTRA [SQXTUBE] Order #: [id number] FUTURE PROTEIN C FUNCT [SQPRCFUN] Order #: [id number] FUTURE PROTEIN S CLOTTABLE [SQPRSCLT] Order #: [id number] FUTURE Follow-up and Disposition History Recorded Prescriptions as of 04/12/2019 Sig: NORGESTIMATE 0.25 MG-ETHINYL * Take 1 tablet by mouth once d* Problem List As Of Date: 04/12/2019 (None) Encounter Status:Closed by FORD MORGAN MD on 04/12/19 [facility] PROGRESSon 04-12-2019 PROGRESS HNO ID: [id number] Author: Ford Morel) Cathy Service: ? Author Type: Physician Type: Progress Notes Filed: 04/12/2019 4:48 PM Note Text: PATIENT NAME: Loyda Adame [facility] NO.: [id number] ATTENDING PHYSICIAN: Ford Morgan MD DATE OF [...] me to participate in Miss Loyda Adame [facility], if there are any questions or concerns please do not hesitate to contact me at the number below. Ford Morgan M.D. Hematology/Medical Oncology [facility] [phone] CC: Normal [facility] Vital Signs Date Time Vital Sign Value Performing Clinician Camilo klein 04-11-2024 13:50-0500 Blood Pressure Location Israel NILL [facility] [place] 04-11-2024 13:50-0500 Diastolic blood pressure 74 mm[Hg] Israel NILL [facility] [place] 04-11-2024 13:50-0500 Heart rate 87 /min Israel NILL [facility] [place] 04-11-2024 13:50-0500 Respiratory rate 16 /min Israel NILL [facility] [place] 04-11-2024 13:50-0500 Systolic blood pressure 106 mm[Hg] [place] NILL [facility] [place] 12-31-2023 08:48-0400 Blood Pressure Location [place] NILL [facility] [place] 12-31-2023 08:48-0400 Diastolic blood pressure 87 mm[Hg] Israel NILL [facility] [place] 12-31-2023 08:48-0400 Heart rate 81 /min Israel NILL [facility] [place] 12-31-2023 08:48-0400 Respiratory rate 16 /min Israel NILL [facility] [place] 12-31-2023 08:48-0400 Systolic blood pressure 120 mm[Hg] Israel NILL [facility] Encounters Encounter Date Encounter Type Care Provider Facility Start: 04-11-2024 End: 04-11-2024 ambulatory Israel POND Facility: [place] Start: 04-11-2024 End: 04-11-2024 Patient encounter procedure Israel POND [facility] Start: 03-24-2024 ambulatory Israel POND Facility:[facility] Start: 02-01-2024 End: 02-01-2024 Patient encounter procedure Ki Lock DO Work Phone: [facility] Comment on above: Encounter for drug s creening Start: 02-01-2024 End: 02-01-2024 ambulatory ROSALVA ANITHA Not Available Start: 01-14-2024 End: 01-14-2024 ambulatory Anatoly PARK Facility:[facility] Start: 12-31-2023 End: 12-31-2023 ambulatory Shaw Jorgensen Facility:[facility] Start: 12-31-2023 End: 12-31-2023 Patient encounter procedure Israel POND [facility] Start: 12-25-2023 ambulatory Israel POND Facility:[facility] Start: 09-07-2023 End: 09-07-2023 ambulatory ROSALVA ANITHA [...] Available Start: 07-15-2022 End: 07-16-2022 ambulatory RACHEL EBERLY Facility:[facility] Start: 02-04-2022 End: 02-05-[address] ROSALVA WELSH . Facility:[facility] Start: 10-29-2021 Encounter for preprocedural laboratory examination DR ROSALVA WELSH . [facility] Start: 10-25-2021 End: 10-25-[address] ROSALVA WELSH . Facility:[facility] Start: 10-23-2021 End: 10-24-[address] ROSALVA WELSH . Facility:[facility] Start: 10-23-2021 End: 10-24-2021 Encounter for preprocedural laboratory examination DR ROSALVA WELSH . Facility:[facility] Start: 10-22-2021 Encounter for other preprocedural examination DR ROSALVA WELSH . [facility] Start: 10-17-2021 End: 10-18-2021 ambulatory [...] DERM [address] [place] [id number] Rafaela Encarnacion, DIALER-ANESTHESIOLOGIST PHYSICIAN [address] [place] [address] [facility] Start: 12-15-2023 End: 12-15-2023 Patient encounter procedure 12/15/2023 11:00 AM EDT Office Visit [facility] [address] [place] [id number] Rosalva Welsh, DO [address] [place] [address] [facility] Start: 11-29-2023 Influenza vaccination Influenza Vacc ine (#1) [facility] Start: 05-11-2023 End: 05-11-2023 Patient encounter procedure 05/11/2023 4:05 PM EST Office Visit [facility] [address] [place] [phone] Rafaela Encarnacion APRN-ANESTHESIOLOGIST PHYSICIAN [address] [place] [address] [facility] Start: 11-28-2022 Influenza vaccination Influenza Vacc ine (#1) [facility] Immunizations Immunization Date Immunization Notes Care Provider Fa [facility] 03-10-2022 SARS-CoV-2 (COVID-19 ) mRNAMUL.[id number] [place] POND [facility] 01-09-2022 influenza virus vaccine, unspecified formulation Rosalva Welsh DO Work Phone: [facility] 09-07-2020 SARS-CoV-2 (COVID-19 ) mRNA BNT-162b2 vax Israel NILL [facility] Comment on above: Result Comment: 2023: [facility] 08-17-2020 SARS-CoV-2 (COVID-19 ) mRNA BNT-162b2 vax Israel NILL [facility] Comment on above: Result Comment: 2023: [facility]AL Payers Date Payer Category Payer Medicaid [id number] 2023 Unknown [id number] 2022 Unknown BCBS BCBS [id number] [id number] 2022-Present [phone] [address] [place] [address] [id number] 2022 Unknown [id number] 1999 Unknown [id number] 2.16.840.1.649622.3.579.2.593 1999 Unknown [id number] 2.16.840.1.730799.3.579.2.593 1999 Unknown [id number] 2.16.840.1.991933.3.579.2.593 1999 Unknown [id number] 2.16.840.1.051432.3.579.2.593 1999 Unknown [id number] 2.16.840.1.216282.3.579.2.593 1999 Unknown [id number] 2.16.840.1.309448.3.579.2.593 1999 Unknown [id number] 2.16.840.1.663170.3.579.2.1259 1999 Unknown [id number] 2.16.840.1.328056.3.579.2.1259 1999 Unknown [id number] 2.16.840.1.454535.3.579.2.1259 1999 Unknown [id number] 2.16.840.1.382207.3.579.2.1259 1999 Unknown [id number] 2.16.840.1.342249.3.579.2.1259 1999 Unknown [id number] 2.16.840.1.589399.3.579.2.1259 1999 Unknown [id number] 2.16.840.1.062508.3.579.2.727 1999 Unknown [id number] 2.16.840.1.267373.3.579.2.727 1959 Self-pay 1960 Unknown [id number] Unknown [id number] 2.16.840.1.494150.3.579.2.593 Social History Date Type Detail Facility Start: 09-03-2022 End: 04-11-2024 Tobacco smoking status NHIS Never smoked tobacco [facility] Start: 09-03-2022 Tobacco use and exposure Smokeless tobacco non-user [facility] Start: 04-22-2023 End: 09-07-2023 Alcohol intake Lifetime non-drinker (finding) [facility] Start: 04-22-2023 End: 05-19-2023 History of Social function [facility] Start: 04-22-2023 End: 05-19-2023 Tobacco use panel [facility] Start: 2000 Sex Assigned At Female [facility] Start: 08-27-2022 Gender identity Identifies as female gender (finding) [facility] Start: 08-27-2022 Sexual orientation Heterosexual (finding) [facility] Tobacco smoking status Former sm okeless tobacco user, quit more than 30 days ago [facility] Functional Status Date Assessment Result Facility 04-11-2024 Functional Status N/A [facility] 12-31-2023 Functional Status N/A [facility] History of Present illness Narrative 02-01-2024 Darren Jones MA - 02/01/2024 9:35 AM EST Note Date & Type Note Facility 02-01-2024 History of Presen t illness Narrative Pt presents today for a pre-employment 5 panel drug screen for [employer]. Pt verified by photo ID. documented in this encounter [facility] Evaluation + Plan note 12-31-2023 Note Date & Type Note Facility 12-31-2023 Evaluation + Plan note Diagnostic Tests PendingHepatic Function Panel 12/31/23 [facility] 12-31-2023 Note Date & Type [...] Immunizations Vaccine Date Status Comments SARS-CoV-2 (COVID-19) mRNAMUL.[id number] 03/10/2022 Recorded SARS-CoV-2 (COVID-19) mRNA BNT-162b2 vax 09/07/2020 Recorded 2023-12-25: [facility]AL SARS-CoV-2 (COVID-19) m (more content not included)... [facility] Comment on above: Result Comment: Elec tronically Signed By: DEJAH ARDON, Israel Oh\Date and Time Signed: 12/31/23 09:48 EDT History of Present illness Narrative 05-05-2023 Gina Edouard, ZIPPER TRIMMER - 05/05/2023 8:10 AM EST Note Date & Type Note Facility 05-05-2023 History of Presen t illness Narrative Reason for Appointment: Patient ID: Loyda Adame is a 23 y.o. female who presents for Results Patient presents today via telephone call for a telehealth appointment. Patients Phone #: [phone] (mobile) Current Medications: has a current medication [...] negaitve TONSILLECTOMY 03/27/2010 WISDOM TOOTH EXTRACTION 01/26/2016 [place] teeth No Known Allergies Vitals: Estimated body [...] Welsh DO documented in this encounter [facility] Clinical Note 10-25-2021 Note Date & Type Note Facility 10-25-2021 Note OPERATIVE NOTE OPERATION DATE: 11/01/2021 PROCEDURE: Diagnostic laparoscopy with chromopertubation. PREOPERATIVE DIAGNOSIS: 1. Pelvic pain. 2. Possible tubal dysfunction. POSTOPERATIVE DIAGNOSIS: 1. Pelvic pain. 2. Possible tubal dysfunction. ANESTHESIA: General. SURGEON: Rosalva Welsh D.O. INSURANCE MARKETING SPECIALIST: DUC Sherman URINE OUTPUT: Yellow and clear. [...] to Recovery Room in stable condition [facility] Evaluation note Note Date & Type Note Facility Evaluation note Diagnosis Encounter to discuss test results Other specified counseling documented in this encounter [facility] Evaluation note Note Date & Type Note Facility Evaluation note Diagnosis Encounter for drug screening documented in this encounter [facility] Hospital course Narrative Note Date & Type Note Facility Hospital course Narrative No data available for this section [facility] Hospital Discharge instructions Note Date & Type Note Facility Hospital Discharge instructions No data available for this section [facility] Progress note Note Date & Type Note Facility Progress note No data available for this section [facility] [place] Summary Purpose Family History No Family History Records FoundNo Family History Records Found No data available for this section No Family History Records Found No data available for this section No Family History Records Found Advance Directives No Advanced Directives Records FoundNo Advanced Directives Records FoundNo Advanced Directives Records FoundNo Advanced Directives Records Found Additional Source Comments INFORMATION SOURCE (unrecogn ized section and content) DATE CREATED AUTHOR 05/18/2019 [facility] DATE CREATED AUTHOR AUTHOR'S ORGANIZ ATION 07/20/2022 [facility] DATE CREATED AUTHOR AUTHOR'S ORGANIZ ATION 02/02/2024 [facility] EPIC DATE CREATED AUTHOR AUTHOR'S ORGANIZ ATION 04/14/2024 [facility] Reason for Visit (unrecogniz ed section and content) Reason Comments Results Care Teams (unrecognized sec tion and content) Technical Designer Relationship Specialty Start Date End Date Shaw Jorgensen MD [address] [place] [phone] PCP - General Family Medicine 09/03/22 Technical Designer Relationship Specialty Start Date End Date Shaw Jorgensen MD [address] [place] [address] PCP - General Family Medicine 09/03/22 FOR [...] BE BASED ON THE PRIMARY CLINICAL RECORDS. [facility] [employer] [facility]. provides no warranty or guarantee of the accuracy or completeness of information in this document.
[2024-04-21 11:42] LABS: Basophils Absolute Auto 0.1 10^3/uL (0.0-0.1); Basophils Percent Auto 1.5 % (0.2-2.0); Eosinophils Absolute Auto 0.2 10^3/uL (0.0-0.7); Eosinophils Percent Auto 3.4 % (0.9-7.0); Hematocrit 39.7 % (36.0-48.0); Hemoglobin 13.4 g/dL (12.0-16.0); Immature Granulocytes Abs Auto 0.01 10^3/uL (0.00-0.03); Immature Granulocytes Pct Auto 0.2 % (0.0-0.5); Lymphocytes Absolute Auto 1.8 10^3/uL (1.2-3.8); Lymphocytes Percent Auto 29.4 % (20.5-60.0); Mean Corpuscular HGB Conc 33.8 g/dL (29.9-35.2); Mean Corpuscular Hemoglobin 30.6 pg (26.7-34.0); Mean Corpuscular Volume 90.6 fL (81.0-99.0); Mean Platelet Volume 9.8 fL (9.5-13.5); Monocytes Absolute Auto 0.5 10^3/uL (0.3-0.8); Monocytes Percent Auto 8.5 % (1.7-12.0); Neutrophils Absolute Auto 3.5 10^3/uL (1.4-6.5); Platelet Count 279 10^3/uL (150-450); Red Blood Count 4.38 10^6/uL (4.20-5.40); Red Cell Distribution Width 12.8 % (11.0-15.0); White Blood Count 6.1 10^3/uL (4.0-11.0)
[2024-04-21 12:01] LABS: Alanine Aminotransferase 14 U/L (14-59); Albumin Globulin Ratio 0.9; Albumin Level 3.3 g/dL (3.4-5.0); Alkaline Phosphatase 69 U/L (46-116); Anion Gap 13.5; Aspartate Amino Transferase 10 U/L (15-37); BUN Creatinine Ratio 18.4; Bilirubin Direct 0.1 mg/dL (0.0-0.2); Bilirubin Total 0.4 mg/dL (0.2-1.0); Calcium 8.5 mg/dL (8.5-10.1); Carbon Dioxide 25.3 mmol/L (21.0-32.0); Chloride 103 mmol/L (98-107); Estimated GFR (African America >60 (>=60 mL/min/1.73m^2); Estimated GFR (Non-African Ame >60 (>=60 mL/min/1.73m^2); Globulin 3.6 g/dL; Glucose 81 mg/dL (74-106); Potassium 3.8 mmol/L (3.5-5.1); Sodium 138 mmol/L (136-145); Total Protein 6.9 g/dL (6.4-8.2)
== END 2024-04-21 11:00 | disposition home or self-care (01) ==
LOC: PST 10:59
PROVIDERS: PCP Family Medicine; Visit Provider Surgery
DX: Z01.812 Encounter for preprocedural laboratory examination (principal); R10.11 Right upper quadrant pain; K80.20 Calculus of gallbladder without cholecystitis without obstruction
CPT/HCPCS: 80048; 80076; 85025

== ENCOUNTER 2024-05-04 07:14 | Day surgery (SDC) | payer OTHER, SELFPAY ==
[2024-04-21 11:14] VITALS: BP 122/86; PULSE 85; TEMP 36.3; O2SAT 99; BMI 29.4
--- OUTSIDE RECORDS SUMMARY | 2024-05-04 07:17 | XMS_ITS | CCD ---
Author Organization [facility] Care Team Providers Care Manager Wind Name Role Phone ANITHA ., DR BLACKWELL [...] Shaw Jorgensen MD Primary Care Provider Shaw Joregnsen Primary Care Physician ROSALVA WELSH Attending Unavailable [...] Medication Allergies] Propensity to adverse reactions (disorder) [facility] Repository Medications Current Medications Medication Drug [...] End: 05-05-2023 QUEtiapine (SEROquel) 25 MG tablet Sggnvdtjn-Kdtvlvjpd-Wjhshtjv d (Myfembree) 40-1-0.5 MG tablet (2 sources) Start: 09-07-2023 take 1 tablet by mouth once daily Tzowgpeup-Ncvislljq-Qubbzjbwx (Myfembree) 40-1-0.5 MG tablet Indications: Endometriosis Take [...] Results Test Name Value Interpretation Reference Range [facility] General Surgery Office/Clini c Noteon [...] Immunizations Vaccine Date Status Comments SARS-CoV-2 (COVID-19) [id number].ORD![id number] 03/10/2022 Recorded SARS-CoV-2 (COVID-19) mRNA BNT-162b2 vax 09/07/2020 Recorded 2023-12-25: TPVAL SARS-CoV-2 (COVID-19) mRNA BNT-162b2 vax 08/17/2020 Recorded 2023-12-25: TPVAL Normal [facility] Comment on above: Result Comment: Elec [...] for choosing us for your care. Normal [facility] QUANTIFERON TB GOLD PLUSon 0 07-17-2022 QuantiFERON Criteria Comment Normal [facility] Comment on above: Result Comment: Yon [...] Performed By: #### Q NTTB #### [facility] [address] [place] [address] Dr. Elie Milan QuantiFERON Incubation Incubation performed. Normal [facility] Comment on above: Performed By: #### Q NTTB #### [facility] [address] [place] [address] Dr. Elie Milan QuantiFERON Mitogen Value >10.00 Normal [facility] Comment on above: Performed By: #### Q NTTB #### [facility] [address] [place] [address] Dr. Elie Milan QuantiFERON Nil Value 0.05 IU/mL Normal [facility] Comment on above: Performed By: #### Q NTTB #### [facility] [address] [place] [address] Dr. Elie Milan QuantiFERON TB1 Ag Value 0.06 IU/mL Normal [facility] Comment on above: Performed By: #### Q NTTB #### [facility] [address] [place] [address] Dr. Elie Milan QuantiFERON TB2 Ag Value 0.07 IU/mL Normal [facility] Comment on above: Performed By: #### Q NTTB #### [facility] [address] [place] [address] Dr. Elie Milan QuantiFERON-TB Gold Plus Negative Normal Negative [facility] Comment on above: Result Comment: No r esponse to M tuberculosis antigens detected. Infection with M tuberculosis is unlikely, but high risk individuals should be considered for additional testing (ATS/IDSA/CDC Clinical Practice Guidelines, 2017). The reference range is an Antigen minus Nil result of <0.35 IU/mL. Chemiluminescence immunoassay methodology Performed By: #### Q NTTB #### [facility] [address] [place] [address] Dr. Elie Milan HEPATITIS B SURFACE ANTIBODY , QUANTon 07-16-2022 Hepatitis B Surf AB Quant <3.1 Critically low Immunity>9.9 [facility] Comment on above: Result Comment: Stat us of Immunity Anti-HBs Level Inconsistent with Immunity 0.0 - 9.9 Consistent with Immunity >9.9 Performed By: #### H EPBSRF #### [facility] [address] [place] [address] Dr. Elie Milan MMR IMMUNITYon 07-16-2022 Mumps Abs, IgG 261.0 AU/mL Normal Immune >10.9 [facility] Comment on above: Result Comment: Nega tive <9.0 Equivocal 9.0 - 10.9 Positive >10.9 A positive result generally indicates past exposure to Mumps virus or previous vaccination. Performed By: #### M MRIMMU #### [facility] [address] [place] [address] Dr. Elie Milan Rubella Antibodies, IgG 3.97 index Normal Immune >0.99 [facility] Comment on above: Result Comment: Non- immune <0.90 Equivocal 0.90 - 0.99 Immune >0.99 Performed By: #### M MRIMMU #### [facility] [address] [place] [address] Dr. Elie Milan Rubeola Ab, IgG >300.0 Normal Immune >16.4 [facility] Comment on above: Result Comment: Nega tive <13.5 Equivocal 13.5 - 16.4 Positive >16.4 Presence of antibodies to Rubeola is presumptive evidence of immunity except when acute infection is suspected. Performed By: #### M MRIMMU #### [facility] [address] [place] [address] Dr. Elie Milan VARICELLA IGG ABon 3 Varicella Zoster IgG 1549 index Normal Immune >165 [facility] Comment on above: Result Comment: Nega tive <135 Equivocal 135 - 165 Positive >165 A positive result generally indicates exposure to the pathogen or administration of specific immunoglobulins, but it is not indication of active infection or stage of disease. Performed By: #### V ARCEL #### [facility] [address] [address] [address] Elie Milan US PELVIS AND TRANSVAGon [...] FOREMAN Date: 2022-02-04 20:13 Normal [facility] HCG-BETA SUBUNIT QUANTon hCG,Beta Subunit,Qnt,Serum <1 Normal [facility] Comment on above: Result Comment: Fema le (Non-) 0 - 5 (Postmenopausal) 0 - 8 . Female () Weeks of Gestation 3 6 - 71 4 10 - 750 5 287 - 9638 6 660 - 07798 7 2687 -256925 8 42677 -865425 9 95289 -277030 10 59307 -552014 12 38881 -578675 14 52284 - 09922 15 33083 - 38830 16 9787 - 27725 17 1820 - 41020 18 4343 - 49218 Tanesha ECLIA methodology Performed By: #### H CGSUB #### [facility] [address] [address] [address] Elie Milan CBC AUTO DIFFon 10-23-2021 BASO # 0.1 103/ul Normal 0.0-0.1 [facility] Comment on above: Performed By: #### C BC #### [facility] [address] [place] [address] Dr. Elie Milan Basophils/100 WBC (Bld) 1.1 % Normal 0.2-2.0 [facility] Comment on above: Performed By: #### C BC #### [facility] [address] [place] [address] Dr. Elie Milan EO # 0.3 103/ul Normal 0.0-0.7 [facility] Comment on above: Performed By: #### C BC #### [facility] [address] [place] [address] Dr. Elie Milan Eosinophils/100 WBC (Bld) 4.6 % Normal 0.9-7.0 [facility] Comment on above: Performed By: #### C BC #### [facility] [address] [place] [address] Dr. Elie Milan Erythrocyte distribution width (RBC) [Ratio] 11.9 % Normal 11.0-15.0 [facility] Comment on above: Performed By: #### C BC #### [facility] [address] [place] [address] Dr. Elie Milan Hematocrit (Bld) [Volume fraction] 41.0 % Normal 36.0-48.0 [facility] Comment on above: Performed By: #### C BC #### [facility] [address] [place] [address] Dr. Elie Milan Hemoglobin (Bld) [Mass/Vol] 14.0 g/dL Normal 12.0-16.0 [facility] Comment on above: Performed By: #### C BC #### [facility] [address] [place] [address] Dr. Elie Milan IG # 0.02 10e3/ul Normal 0.00-0.03 [facility] Comment on above: Performed By: #### C BC #### [facility] [address] [place] [address] Dr. Elie Milan IG % 0.3 % Normal 0.0-0.5 [facility] Comment on above: Performed By: #### C BC #### [facility] [address] [place] [address] Dr. Elie Milan LYMPH # 1.3 103/ul Normal 1.2-3.8 [facility] Comment on above: Performed By: #### C BC #### [facility] [address] [place] [address] Dr. Elie Milan Lymphocytes/100 WBC (Bld) 17.9 % Critically low 20.5-60.0 [facility] Comment on above: Performed By: #### C BC #### [facility] [address] [place] [address] Dr. Elie Milan MANUAL DIFF REQ NO Normal [facility] Comment on above: Performed By: #### C BC #### [facility] [address] [place] [address] Dr. Elie Milan MCH (RBC) [Entitic mass] 30.9 pg Normal 26.7-34.0 [facility] Comment on above: Performed By: #### C BC #### [facility] [address] [place] [address] Dr. Elie Milan MCHC (RBC) [Mass/Vol] 34.1 g/dL Normal 29.9-35.2 [facility] Comment on above: Performed By: #### C BC #### [facility] [address] [place] [address] Dr. Elie Milan MCV (RBC) [Entitic vol] 90.5 fL Normal 81.0-99.0 [facility] Comment on above: Performed By: #### C BC #### [facility] [address] [place] [address] Dr. Elie Milan MONO # 0.5 103/ul Normal 0.3-0.8 [facility] Comment on above: Performed By: #### C BC #### [facility] [address] [place] [address] Dr. Elie Milan Monocytes/100 WBC (Bld) 7.3 % Normal 1.7-12.0 [facility] Comment on above: Performed By: #### C BC #### [facility] [address] [address] [address] Elie Milan NEUT # 4.8 103/ul Normal 1.4-6.5 [facility] Comment on above: Performed By: #### C BC #### [facility] [address] [place] [address] Dr. Elie Milan Neutrophils/100 WBC (Bld) 68.8 % Normal 43.0-75.0 [facility] Comment on above: Performed By: #### C BC #### [facility] [address] [place] [address] Dr. Elie Milan Platelet mean volume (Bld) [Entitic vol] 9.9 fL Normal 9.5-13.5 [facility] Comment on above: Performed By: #### C BC #### [facility] [address] [place] [address] Dr. Elie Milan PLT 223 103/ul Normal 150-450 [facility] Comment on above: Performed By: #### C BC #### [facility] [address] [place] [address] Dr. Elie Milan RBC 4.53 106/ul Normal 4.20-5.40 [facility] Comment on above: Performed By: #### C BC #### [facility] [address] [place] [address] Dr. Elie Milan WBC 7.0 103/ul Normal 4.0-11.0 [facility] Comment on above: Performed By: #### C BC #### [facility] [address] [place] [address] Dr. Elie Milan HCG-BETA SUBUNIT QUANTon hCG,Beta Subunit,Qnt,Serum <1 Normal [facility] Comment on above: Result Comment: Fema le (Non-) 0 - 5 (Postmenopausal) 0 - 8 . Female () Weeks of Gestation 3 6 - 71 4 10 - 750 5 831 - 3946 6 442 - 84228 7 1194 -672217 8 72967 -739436 9 94571 -098251 10 29686 -656837 12 30516 -454254 14 96788 - 07043 15 67196 - 66032 16 4082 - 38861 17 5262 - 06202 18 6820 - 00563 Tanesha ECLIA methodology Performed By: #### H CGSUB #### [facility] [address] [place] [address] Dr. Elie Milan US PELVIS TRANSVAGon 022 [...] by: NIKO FOREMAN Date: 2021-10-08 16:31 Normal [facility] CNOVSPon 05-17-2019 CNOVSP Visit (SP) Office (IFTIKHAR) LOYDA ADAME ([id number]) 2000 F Date Time Provider Department 05/17/19 10:45 AM FORD MORGAN) IFTIKHAR During your visit today, we recorded the following information about you: Temperature Pulse Respiration Blood pressure 98.2 degrees 86/minute 18/minute 121/71 Weight Height 56.8 kg 1.632 m Ford Morgan MD 05/17/2019 2:07 PM Signed PATIENT NAME: Loyda Adame CLINIC NO.: [id number] ATTENDING PHYSICIAN: Ford Morgan MD DATE OF SERVICE: May 17, 2019 This document has been created with the use of voice recognition technology. It may contain inaccuracies, misspellings, inaccurate syntax or inappropriate word context that escaped review. Dear Dr. Ford Morgan MD [address] [place] [address] here is an update on a follow [...] do not hesitate to contact me at [phone]. Ford Morgan MD Hematology/Medical Oncology [facility] CC: Shaw Jorgensen Referring Provider: FORD MORGAN) [[id number]] Allergies As of Date: 05/17/2019 (No Known [...] Status:Closed by FORD MORGAN MD on 05/17/19 [facility] PROGRESSon 05-17-2019 PROGRESS HNO ID: [id number] Author: Ford Morgan Service: ? Author Type: Physician Type: Progress Notes Filed: 05/17/2019 2:07 PM Note Text: PATIENT NAME: Loyda Adame [facility] NO.: [id number] ATTENDING PHYSICIAN: Ford Morgan MD DATE OF SERVICE: May 17, 2019 This document has been created with the use of voice recognition technology. It may contain inaccuracies, misspellings, inaccurate syntax or inappropriate word context that escaped review. Dear Dr. Ford Morgan MD [address] [place] [address] here is an update on a follow [...] do not hesitate to contact me at [phone]. Ford Morgan MD Hematology/Medical Oncology [facility] CC: Shaw Jorgensen Normal [facility] APTTon 05-10-2019 aPTT Coag (Bld) [Time] 27.1 s Normal 23.0-32.4 [facility] Comment on above: Result Comment: Unfr [...] laboratory APTT reagent in use throughout the [facility]. Performed By: #### P RSCLT, PTT, PT, PRCFUN #### [facility] [address] [place], [place] [id number] Protein C Functionalon 05-10 Protein [Mass/Vol] 89 % Normal 76-147 [facility] Comment on above: Performed By: #### P RSCLT, PTT, PT, PRCFUN #### [facility] [address] [place], [place] [address] Protein S Clottableon 2019 Protein S Clottable 58 % Low 59-131 [facility] Comment on above: Result Comment: Resu [...] #### P RSCLT, PTT, PT, PRCFUN #### [facility] [address] [id number] Protimeon 05-10-2019 PT Coag (PPP) [Time] 10.2 s Normal 9.7-13.0 [facility] Comment on above: Performed By: #### P RSCLT, PTT, PT, PRCFUN #### [address] [place], [place] [address] PT Coag (PPP) [Time] 0.9 s Normal 0.9-1.3 [facility] Comment on above: Result Comment: Maria D min K Antagonist (VKA) Therapeutic Range: INR 2 to 3 (Target INR of 2.5) Note: For patients treated with VKA drugs, such as warfarin, the [place] [employer] 2012 Guideline recommends [...] Chest 2012, 141:7S-47S Deo GARLAND et al. [facility] 2017, 70: 252-289 Performed By: #### P RSCLT, PTT, PT, PRCFUN #### [facility] [address] [phone] CNOVSPon 04-12-2019 OVS Visit (SP) Office (HEMASA) LOYDA ADAME ([id number]) 2000 F Date Time Provider Department 04/12/19 4:15 PM FORD MORGAN) IFTIKHAR During your visit today, we recorded the following information about you: Temperature Pulse Respiration Blood pressure 97.8 degrees 90/minute 18/minute 119/74 Weight Height 56.7 kg 1.632 m Ford Morgan MD 04/12/2019 4:48 PM Signed PATIENT NAME: Loyda Adame CLINIC NO.: [id number] ATTENDING PHYSICIAN: Ford Morgan MD DATE OF [...] number below. Ford Morgan M.D. 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] Order(s):ACTIVATED PTT [SQPTT] Order #: [id number] FUTURE PROTHROMBIN TIME/PT [SQPT] Order #: [id number] FUTURE TUBES - DRAW EXTRA [SQXTUBE] Order #: [id number] FUTURE PROTEIN C FUNCT [SQPRCFUN] Order #: [id number] FUTURE PROTEIN S CLOTTABLE [SQPRSCLT] Order #: [id number] FUTURE Follow-up and Disposition History Recorded Prescriptions as of 04/12/2019 Sig: NORGESTIMATE 0.25 MG-ETHINYL * Take 1 tablet by mouth once d* Problem List As Of Date: 04/12/2019 (None) Encounter Status:Closed by FORD MORGAN MD on 04/12/19 Normal [facility] PROGRESSon 04-12-2019 PROGRESS HNO ID: [id number] Author: Ford Morel) Cathy Service: ? Author Type: Physician Type: Progress Notes Filed: 04/12/2019 4:48 PM Note Text: PATIENT NAME: Loyda Adame [facility] NO.: [id number] ATTENDING PHYSICIAN: Ford Morgan MD DATE OF [...] to participate in Miss Loyda Adame [facility], if there are any questions or concerns please do not hesitate to contact me at the number below. Ford Morgan M.D. Hematology/Medical Oncology [facility] [place] [phone] CC: Normal [facility] Vital Signs Date Time Vital Sign Value Performing Clinician Camilo klein 04-11-2024 13:50-0500 Blood Pressure Location Israel NILL [facility] General Surgery [place] 04-11-2024 13:50-0500 Diastolic blood pressure 74 mm[Hg] Israel NILL [facility] Surgery [place] 04-11-2024 13:50-0500 Heart rate 87 /min Israel NILL [facility] Surgery [place] 04-11-2024 13:50-0500 Respiratory rate 16 /min Israel NILL [facility] General Surgery [place] 04-11-2024 13:50-0500 Systolic blood pressure 106 mm[Hg] Israel NILL [facility] General Surgery [place] 12-31-2023 08:48-0400 Blood Pressure Location Israel NILL [facility] Surgery [place] 12-31-2023 08:48-0400 Diastolic blood pressure 87 mm[Hg] Israel NILL [facility] General Surgery [place] 12-31-2023 08:48-0400 Heart rate 81 /min Israel NILL [facility] General Surgery [place] 12-31-2023 08:48-0400 Respiratory rate 16 /min Israel NILL [facility] General Surgery [place] 12-31-2023 08:48-0400 Systolic blood pressure 120 mm[Hg] Israel NILL [facility] Encounters Encounter Date Encounter Type Care Provider Facility Start: 04-11-2024 End: 04-11-2024 ambulatory Israel POND Facility: [place] Start: 04-11-2024 End: 04-11-2024 Patient encounter procedure Israel POND [facility] Start: 03-24-2024 ambulatory Israel POND Facility:[facility] Start: 02-01-2024 End: 02-01-2024 Patient encounter procedure Ki Lock DO Work Phone: [facility] Comment on above: Encounter for drug s creening Start: 02-01-2024 End: 02-01-2024 ambulatory ROSALVA ANITHA Not Available Start: 01-14-2024 End: 01-14-2024 ambulatory Anatoly PARK Facility:[facility] Start: 12-31-2023 End: 12-31-2023 ambulatory Shaw Jorgensen Facility:[facility] Start: 12-31-2023 End: 12-31-2023 Patient encounter procedure Israel POND [facility] Start: 12-25-2023 ambulatory Israel POND Facility:[facility] [...] examination DR ROSALVA WELSH . [facility] Start: 10-25-2021 End: 10-25-[address] ROSALVA WELSH . Facility:[facility] Start: 10-23-2021 End: 10-24-[address] ROSALVA WELSH . Facility:[facility] Start: 10-23-2021 End: 10-24-2021 Encounter for preprocedural laboratory examination DR ROSALVA WELSH . Facility:[facility] Start: 10-22-2021 Encounter for other preprocedural examination DR ROSALVA WELSH . [facility] Start: 10-17-2021 End: 10-18-[address] [...] DERM [address] [place] [id number] Rafaela Encarnacion, [employer]LL [employer]ER-SPECIAL OFFICER [employer] [address] [place] [address] [facility] Start: 12-15-2023 End: 12-15-2023 Patient encounter procedure 12/15/2023 11:00 AM EDT Office Visit [facility] [address] [place] [phone] Rosalva Welsh, DO [address] [place] [address] [facility] Start: 11-29-2023 Influenza vaccination Influenza Vacc ine (#1) [facility] Start: 05-11-2023 End: 05-11-2023 Patient encounter procedure 05/11/2023 4:05 PM EST Office Visit [facility] [address] [place] [phone] Rafaela Encarnacion APRN-SPECIAL OFFICER [employer] [address] [place] [address] [facility] Start: 11-28-2022 Influenza vaccination Influenza Vacc ine (#1) [facility] Immunizations Immunization Date Immunization Notes Care Provider [facility] 03-10-2022 SARS-CoV-2 (COVID-19 ) mRNAMUL.[id number] Israel POND [facility] 01-09-2022 influenza virus vaccine, unspecified formulation Rosalva Welsh DO Work Phone: [facility] 09-07-2020 SARS-CoV-2 (COVID-19 ) mRNA BNT-162b2 vax Israel NILL [facility] Comment on above: Result Comment: 2023: TPVAL 08-17-2020 SARS-CoV-2 (COVID-19 ) mRNA BNT-162b2 vax Israel NILL [facility] Comment on above: Result Comment: 2023: TPVAL Payers Date Payer Category Payer Medicaid [id number] 2023 Unknown [id number] 2022 Unknown BCBS BCBS [id number] 2022-Present [phone] [address] [place] [address] [id number] 2022 Unknown [id number] 2000 Unknown [id number] 2.16.840.1.689532.3.579.2.593 2000 Unknown [id number] 2.16.840.1.310613.3.579.2.593 2000 Unknown [id number] 2.16.840.1.841886.3.579.2.593 1999 Unknown [id number] 2.16.840.1.538244.3.579.2.593 1999 Unknown [id number] 2.16.840.1.575160.3.579.2.593 1999 Unknown [id number] 2.16.840.1.467446.3.579.2.593 1999 Unknown [id number] 2.16.840.1.451399.3.579.2.1259 1999 Unknown [id number] 2.16.840.1.385121.3.579.2.1259 1999 Unknown [id number] 2.16.840.1.393860.3.579.2.1259 1999 Unknown [id number] 2.16.840.1.649759.3.579.2.1259 1999 Unknown [id number] 2.16.840.1.577937.3.579.2.1259 1999 Unknown [id number] 2.16.840.1.979910.3.579.2.1259 1999 Unknown [id number] 2.16.840.1.887526.3.579.2.727 1999 Unknown [id number] 2.16.840.1.378553.3.579.2.727 1960 Self-pay 1960 Unknown [id number] Unknown [id number] 2.16.840.1.036863.3.579.2.593 Social History Date Type Detail Facility Start: 09-03-2022 End: 04-11-2024 Tobacco smoking status NHIS Never smoked tobacco [facility] Start: 09-03-2022 Tobacco use and exposure Smokeless tobacco non-user [facility] Start: 04-22-2023 End: 09-07-2023 Alcohol intake Lifetime non-drinker (finding) [facility] Start: 04-22-2023 End: 05-19-2023 History of Social function [facility] Start: 04-22-2023 End: 05-19-2023 Tobacco use panel [facility] Start: 2000 Sex Assigned At Female [facility] Start: 08-27-2022 Gender identity Identifies as female gender (finding) [facility] Start: 08-27-2022 Sexual orientation Heterosexual (finding) [facility] Tobacco smoking status Former sm okeless tobacco user, quit more than 30 days ago [facility] Functional Status Date Assessment Result Facility 04-11-2024 Functional Status N/A [facility] 12-31-2023 Functional Status N/A [facility] History of Present illness Narrative 02-01-2024 Darren Jones MA - 02/01/2024 9:35 AM EST Note Date & Type Note Facility 02-01-2024 History of Presen t illness Narrative Pt presents today for a pre-employment 5 panel drug screen for [employer]. Pt verified by photo ID. documented in this encounter [facility] Evaluation + Plan note 12-31-2023 Note Date & Type Note Facility 12-31-2023 Evaluation + Plan note Diagnostic Tests [facility] 12-31-2023 Note Date & Type [...] Immunizations Vaccine Date Status Comments SARS-CoV-2 (COVID-19) mRNAMUL.ORD![id number] 03/10/2022 Recorded SARS-CoV-2 (COVID-19) mRNA BNT-162b2 vax 09/07/2020 Recorded 2023-12-25: TPVAL SARS-CoV-2 (COVID-19) m (more content not included)... [facility] Comment on above: Result Comment: Elec tronically Signed By: DEJAH ARDON, [place]\Date and Time Signed: 12/31/23 09:48 EDT History of Present illness Narrative 05-05-2023 Gina Edouard, BICYCLE TAXI DRIVER - 05/05/2023 8:10 AM EST Note Date & Type Note Facility 05-05-2023 History of Presen t illness Narrative Reason for Appointment: Patient ID: Loyda Adame is a 23 y.o. female who presents for Results Patient presents today via telephone call for a telehealth appointment. Patients Phone #: [phone] (mobile) Current Medications: has a current medication [...] negaitve TONSILLECTOMY 03/27/2010 WISDOM TOOTH EXTRACTION 01/26/2016 [place] teeth No Known Allergies Vitals: Estimated body [...] Rosalva Welsh DO documented in this encounter [facility] Clinical Note 10-25-2021 Note Date & Type Note Facility 10-25-2021 Note OPERATIVE NOTE OPERATION DATE: 11/01/2021 PROCEDURE: Diagnostic laparoscopy with chromopertubation. PREOPERATIVE DIAGNOSIS: 1. Pelvic pain. 2. Possible tubal dysfunction. POSTOPERATIVE DIAGNOSIS: 1. Pelvic pain. 2. Possible tubal dysfunction. ANESTHESIA: General. SURGEON: Rosalva Welsh D.O. ACETALDEHYDE CONVERTER OPERATOR: DUC Shermna URINE OUTPUT: Yellow and clear. BLOOD LOSS: [...] Recovery Room in stable condition [facility] Evaluation note Note Date & Type Note Facility Evaluation note Diagnosis Encounter to discuss test results Other specified counseling documented in this encounter [facility] Evaluation note Note Date & Type Note Facility Evaluation note Diagnosis Encounter for drug screening documented in this encounter [facility] Hospital course Narrative Note Date & Type Note Facility Hospital course Narrative No data available for this section [facility] Hospital Discharge instructions Note Date & Type Note Facility Hospital Discharge instructions No data available for this section [facility] Progress note Note Date & Type Note Facility Progress note No data available for this section [facility] Surgery [place] Summary Purpose Family History No Family History [...] section and content) DATE CREATED AUTHOR 05/18/2019 [facility] DATE CREATED AUTHOR AUTHOR'S ORGANIZ ATION 07/20/2022 [facility] DATE CREATED AUTHOR AUTHOR'S ORGANIZ ATION 02/02/2024 [facility] EPIC DATE CREATED AUTHOR AUTHOR'S ORGANIZ ATION 04/14/2024 [facility] Reason for Visit (unrecogniz ed section and content) Reason Comments Results Care Teams (unrecognized sec tion and content) Manager Wind Relationship Specialty Start Date End Date Shaw Jorgensen MD [address] [place] [phone] PCP - General Family Medicine 09/03/22 Manager Wind Relationship Specialty Start Date End Date Shaw Jorgensen MD [address] [place] [address] PCP - General Family Medicine 09/03/22 FOR [...] BE BASED ON THE PRIMARY CLINICAL RECORDS. [email or web address] [facility]. provides no warranty or guarantee of the accuracy or completeness of information in this document.
[2024-05-04 07:33] VITALS: BP 111/83; PULSE 86; TEMP 36.3; O2SAT 94; BMI 29.4
[2024-05-04 07:36] LABS: HCG Qualitative POSITIVE (NEGATIVE); Internal Control Within Normal Limits
[2024-05-04 08:14] LABS: HCG Quantitative 205 mIU/mL
--- NOTE | 2024-05-05 11:02 | PC.NURSE ---
05/04/24 (0832) Cancel procedure d/t positive test.
== END 2024-05-04 08:32 | disposition home or self-care (01) ==
LOC: SURGOUT 07:15
PROVIDERS: PCP Family Medicine; Visit Provider Surgery
DX: K80.20 Calculus of gallbladder without cholecystitis without obstruction (principal); Z53.8 Procedure and treatment not carried out for other reasons
CPT/HCPCS: 47562; 36415; 84702; 84703

== ENCOUNTER 2024-05-31 12:00 | Outpatient (OUT) | payer OTHER, SELFPAY ==
--- OUTSIDE RECORDS SUMMARY | 2024-05-31 12:13 | XMS_ITS | CCD ---
Author Organization [facility] Care Team Providers Care Associate Director Name Role Phone ANITHA ., DR BLACKWELL [...] ., DR HAY Primary Care Unavailable RACHEL SHEHT Consulting Unavailable ANITHA ., DR BLACKWELL Admitting [...] Medication Allergies] Propensity to adverse reactions (disorder) [facility] Repository Medications Current Medications Medication Drug [...] End: 05-05-2023 QUEtiapine (SEROquel) 25 MG tablet Tmewakjoj-Qcnwoxrox-Zquqsjuq d (Myfembree) 40-1-0.5 MG tablet (2 sources) Start: 09-07-2023 take 1 tablet by mouth once daily Syjwjpqmg-Vpfpomwij-Wiockpwkg (Myfembree) 40-1-0.5 MG tablet Indications: Endometriosis Take [...] Results Test Name Value Interpretation Reference Range [facility] General Surgery Office/Clini c Noteon [...] Immunizations Vaccine Date Status Comments SARS-CoV-2 (COVID-19) mRNAMUL.ORD![id number] 03/10/2022 Recorded SARS-CoV-2 (COVID-19) mRNA BNT-162b2 vax 09/07/2020 Recorded 2023-12-25: TPVAL SARS-CoV-2 (COVID-19) mRNA BNT-162b2 vax 08/17/2020 Recorded 2023-12-25: TPVAL Normal [facility] Comment on above: Result Comment: Elec [...] for choosing us for your care. Normal [facility] QUANTIFERON TB GOLD PLUSon 0 07-17-2022 QuantiFERON Criteria Comment Normal [facility] Comment on above: Result Comment: Yon [...] test. Performed By: #### Q NTTB #### [facility] [address] [place] [address] Dr. Elie Milan QuantiFERON Incubation Incubation performed. Normal [facility] Comment on above: Performed By: #### Q NTTB #### [facility] [address] [place] [address] Dr. Elie Milan QuantiFERON Mitogen Value >10.00 Normal [facility] [place] [facility] Comment on above: Performed By: #### Q NTTB #### [facility] [address] [place] [address] Dr. Elie Milan QuantiFERON Nil Value 0.05 IU/mL Normal [facility] [place] [facility] Comment on above: Performed By: #### Q NTTB #### [facility] [address] [place] [address] Dr. Elie Milan QuantiFERON TB1 Ag Value 0.06 IU/mL Normal [facility] [place] [facility] Comment on above: Performed By: #### Q NTTB #### [facility] [address] [place] [address] Dr. Elie Milan QuantiFERON TB2 Ag Value 0.07 IU/mL Normal [facility] [place] [facility] Comment on above: Performed By: #### Q NTTB #### [facility] [address] [place] [address] Dr. Elie Milan QuantiFERON-TB Gold Plus Negative Normal Negative [facility] Comment on above: Result Comment: No r esponse to M tuberculosis antigens detected. Infection with M tuberculosis is unlikely, but high risk individuals should be considered for additional testing (ATS/IDSA/CDC Clinical Practice Guidelines, 2017). The reference range is an Antigen minus Nil result of <0.35 IU/mL. Chemiluminescence immunoassay methodology Performed By: #### Q NTTB #### [facility] [address] [place] [address] Dr. Elie Milan HEPATITIS B SURFACE ANTIBODY , QUANTon 07-16-2022 Hepatitis B Surf AB Quant <3.1 Critically low Immunity>9.9 [facility] Comment on above: Result Comment: Stat us of Immunity Anti-HBs Level Inconsistent with Immunity 0.0 - 9.9 Consistent with Immunity >9.9 Performed By: #### H EPBSRF #### [facility] [address] [place] [address] Dr. Elie Milan MMR IMMUNITYon 07-16-2022 Mumps Abs, IgG 261.0 AU/mL Normal Immune >10.9 [facility] Comment on above: Result Comment: Nega tive <9.0 Equivocal 9.0 - 10.9 Positive >10.9 A positive result generally indicates past exposure to Mumps virus or previous vaccination. Performed By: #### M MRIMMU #### [facility] [address] [place] [address] Dr. Elie Milan Rubella Antibodies, IgG 3.97 index Normal Immune >0.99 [facility] Comment on above: Result Comment: Non- immune <0.90 Equivocal 0.90 - 0.99 Immune >0.99 Performed By: #### M MRIMMU #### [facility] [address] [place] [address] Dr. Elie Milan Rubeola Ab, IgG >300.0 Normal Immune >16.4 [facility] Comment on above: Result Comment: Nega tive <13.5 Equivocal 13.5 - 16.4 Positive >16.4 Presence of antibodies to Rubeola is presumptive evidence of immunity except when acute infection is suspected. Performed By: #### M MRIMMU #### [facility] [address] [place] [address] Dr. Elie Milan VARICELLA IGG ABon 3 Varicella Zoster IgG 1549 index Normal Immune >165 [facility] [place] [facility] Comment on above: Result Comment: Nega tive <135 Equivocal 135 - 165 Positive >165 A positive result generally indicates exposure to the pathogen or administration of specific immunoglobulins, but it is not indication of active infection or stage of disease. Performed By: #### V ARCEL #### [facility] [address] [address] [address] Elie Milan US PELVIS AND TRANSVAGon [...] NIKO FOREMAN Date: 2022-02-04 20:13 Normal [facility] HCG-BETA SUBUNIT QUANTon hCG,Beta Subunit,Qnt,Serum <1 Normal [facility] Comment on above: Result Comment: Fema le (Non-) 0 - 5 (Postmenopausal) 0 - 8 . Female () Weeks of Gestation 3 6 - 71 4 10 - 750 5 896 - 8438 6 121 - 81148 7 0150 -366067 8 67454 -735820 9 40582 -657035 10 75390 -291383 12 97761 -365191 14 84547 - 82253 15 33981 - 55642 16 7886 - 11486 17 0656 - 19304 18 6051 - 04928 Tanesha ECLIA methodology Performed By: #### H CGSUB #### [facility] [address] [address] [address] Elie Milan CBC AUTO DIFFon 10-23-2021 BASO # 0.1 103/ul Normal 0.0-0.1 [facility] [place] [facility] Comment on above: Performed By: #### C BC #### [facility] [address] [place] [address] Dr. Elie Milan Basophils/100 WBC (Bld) 1.1 % Normal 0.2-2.0 [facility] [place] [facility] Comment on above: Performed By: #### C BC #### [facility] [address] [place] [address] Dr. Elie Milan EO # 0.3 103/ul Normal 0.0-0.7 [facility] [place] [facility] Comment on above: Performed By: #### C BC #### [facility] [address] [place] [address] Dr. Elie Milan Eosinophils/100 WBC (Bld) 4.6 % Normal 0.9-7.0 [facility] [place] [facility] Comment on above: Performed By: #### C BC #### [facility] [address] [place] [address] Dr. Elie Milan Erythrocyte distribution width (RBC) [Ratio] 11.9 % Normal 11.0-15.0 [facility] [place] [facility] Comment on above: Performed By: #### C BC #### [facility] [address] [place] [address] Dr. Elie Milan Hematocrit (Bld) [Volume fraction] 41.0 % Normal 36.0-48.0 [facility] [place] [facility] Comment on above: Performed By: #### C BC #### [facility] [address] [place] [address] Dr. Elie Milan Hemoglobin (Bld) [Mass/Vol] 14.0 g/dL Normal 12.0-16.0 [facility] [place] [facility] Comment on above: Performed By: #### C BC #### [facility] [address] [place] [address] Dr. Elie Milan IG # 0.02 10e3/ul Normal 0.00-0.03 [facility] [place] [facility] Comment on above: Performed By: #### C BC #### [facility] [address] [place] [address] Dr. Elie Milan IG % 0.3 % Normal 0.0-0.5 [facility] [place] [facility] Comment on above: Performed By: #### C BC #### [facility] [address] [place] [address] Dr. Elie Milan LYMPH # 1.3 103/ul Normal 1.2-3.8 [facility] [place] [facility] Comment on above: Performed By: #### C BC #### [facility] [address] [place] [address] Dr. Elie Milan Lymphocytes/100 WBC (Bld) 17.9 % Critically low 20.5-60.0 [facility] [place] [facility] Comment on above: Performed By: #### C BC #### [facility] [address] [place] [address] Dr. Elie Milan MANUAL DIFF REQ NO Normal [facility] Comment on above: Performed By: #### C BC #### [facility] [address] [place] [address] Dr. Elie Milan MCH (RBC) [Entitic mass] 30.9 pg Normal 26.7-34.0 [facility] [place] [facility] Comment on above: Performed By: #### C BC #### [facility] [address] [place] [address] Dr. Elie Milan MCHC (RBC) [Mass/Vol] 34.1 g/dL Normal 29.9-35.2 [facility] [place] [facility] Comment on above: Performed By: #### C BC #### [facility] [address] [place] [address] Dr. Elie Milan MCV (RBC) [Entitic vol] 90.5 fL Normal 81.0-99.0 [facility] [place] [facility] Comment on above: Performed By: #### C BC #### [facility] [address] [place] [address] Dr. Elie Milan MONO # 0.5 103/ul Normal 0.3-0.8 [facility] [place] [facility] Comment on above: Performed By: #### C BC #### [facility] [address] [place] [address] Dr. Elie Milan Monocytes/100 WBC (Bld) 7.3 % Normal 1.7-12.0 [facility] [place] [facility] Comment on above: Performed By: #### C BC #### [facility] [address] [address] [address] Elie Milan NEUT # 4.8 103/ul Normal 1.4-6.5 [facility] Comment on above: Performed By: #### C BC #### [facility] [address] [place] [address] Dr. Elie Milan Neutrophils/100 WBC (Bld) 68.8 % Normal 43.0-75.0 [facility] Comment on above: Performed By: #### C BC #### [facility] [address] [place] [address] Dr. Elie Milan Platelet mean volume (Bld) [Entitic vol] 9.9 fL Normal 9.5-13.5 [facility] [place] [facility] Comment on above: Performed By: #### C BC #### [facility] [address] [place] [address] Dr. Elie Milan PLT 223 103/ul Normal 150-450 [facility] Comment on above: Performed By: #### C BC #### [facility] [address] [place] [address] Dr. Elie Milan RBC 4.53 106/ul Normal 4.20-5.40 [facility] Comment on above: Performed By: #### C BC #### [facility] [address] [place] [address] Dr. Elie Milan WBC 7.0 103/ul Normal 4.0-11.0 [facility] Comment on above: Performed By: #### C BC #### [facility] [address] [place] [address] Dr. Elie Milan HCG-BETA SUBUNIT QUANTon hCG,Beta Subunit,Qnt,Serum <1 Normal [facility] Comment on above: Result Comment: Fema le (Non-) 0 - 5 (Postmenopausal) 0 - 8 . Female () Weeks of Gestation 3 6 - 71 4 10 - 750 5 076 - 5006 6 503 - 82506 7 1052 -066383 8 28530 -165743 9 72077 -107773 10 27063 -721253 12 18326 -392482 14 29832 - 71208 15 41234 - 45296 16 0372 - 94761 17 5955 - 43844 18 6154 - 20577 Tanesha ECLIA methodology Performed By: #### H CGSUB #### [facility] [address] [place] [address] Dr. Elie Milan US PELVIS TRANSVAGon 022 [...] by: NIKO FOREMAN Date: 2021-10-08 16:31 Normal [facility] [place] [facility] CNOVSPon 05-17-2019 CNOVSP Visit (SP) Office (IFTIKHAR) LOYDA ADAME ([id number]) 2000 F Date Time Provider Department 05/17/19 10:45 AM FORD MORGAN) IFTIKHAR During your visit today, we recorded the following information about you: Temperature Pulse Respiration Blood pressure 98.2 degrees 86/minute 18/minute 121/71 Weight Height 56.8 kg 1.632 m Ford Morgan MD 05/17/2019 2:07 PM Signed PATIENT NAME: Loyda Adame CLINIC NO.: [id number] ATTENDING PHYSICIAN: Ford Morgan MD DATE OF SERVICE: May 17, 2019 This document has been created with the use of voice recognition technology. It may contain inaccuracies, misspellings, inaccurate syntax or inappropriate word context that escaped review. Dear Dr. Ford Morgan MD [address] [place] [address] here is an update on a follow [...] do not hesitate to contact me at [phone]. Ford Morgan MD Hematology/Medical Oncology [facility] CC: Shaw Jorgensen Referring Provider: FORD MORGAN) [[id number]] Allergies As of Date: 05/17/2019 (No Known [...] Status:Closed by FORD MORGAN MD on 05/17/19 [facility] PROGRESSon 05-17-2019 PROGRESS HNO ID: [id number] Author: Ford Morgan Service: ? Author Type: Physician Type: Progress Notes Filed: 05/17/2019 2:07 PM Note Text: PATIENT NAME: Loyda Adame [facility] NO.: [id number] ATTENDING PHYSICIAN: Ford Morgan MD DATE OF SERVICE: May 17, 2019 This document has been created with the use of voice recognition technology. It may contain inaccuracies, misspellings, inaccurate syntax or inappropriate word context that escaped review. Dear Dr. Ford Morgan MD [address] [place] [address] here is an update on a follow [...] do not hesitate to contact me at [phone]. Ford Morgan MD Hematology/Medical Oncology [facility] CC: Shaw Jorgensen Normal [facility] APTTon 05-10-2019 aPTT Coag (Bld) [Time] 27.1 s Normal 23.0-32.4 [facility] Comment on above: Result Comment: Unfr [...] laboratory APTT reagent in use throughout the [facility]. Performed By: #### P RSCLT, PTT, PT, PRCFUN #### [facility] [address], [place] [id number] Protein C Functionalon 05-10 Protein [Mass/Vol] 89 % Normal 76-147 [facility] Comment on above: Performed By: #### P RSCLT, PTT, PT, PRCFUN #### [facility] [address], [place] [address] Protein S Clottableon 2019 Protein S Clottable 58 % Low 59-131 [facility] Comment on above: Result Comment: Resu [...] PTT, PT, PRCFUN #### [facility] [address] [id number] Protimeon 05-10-2019 PT Coag (PPP) [Time] 10.2 s Normal 9.7-13.0 [facility] Comment on above: Performed By: #### P RSCLT, PTT, PT, PRCFUN #### [id number] [place], [place] [address] PT Coag (PPP) [Time] 0.9 s Normal 0.9-1.3 [facility] Comment on above: Result Comment: Maria D min K Antagonist (VKA) Therapeutic Range: INR 2 to 3 (Target INR of 2.5) Note: For patients treated with VKA drugs, such as warfarin, the [place] [employer] 2012 Guideline recommends [...] Chest 2012, 141:7S-47S Deo GARLAND et al. [facility] 2017, 70: 252-289 Performed By: #### P RSCLT, PTT, PT, PRCFUN #### [facility] [address] [phone] CNOVSPon 04-12-2019 OVS Visit (SP) Office (HEMASA) LOYDA ADAME ([id number]) 2000 F Date Time Provider Department 04/12/19 4:15 PM FORD MORGAN) IFTIKHAR During your visit today, we recorded the following information about you: Temperature Pulse Respiration Blood pressure 97.8 degrees 90/minute 18/minute 119/74 Weight Height 56.7 kg 1.632 m Ford Morgan MD 04/12/2019 4:48 PM Signed PATIENT NAME: Loyda Adame CLINIC NO.: [id number] ATTENDING PHYSICIAN: Ford Morgan MD DATE OF [...] number below. Ford Morgan M.D. 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] Order(s):ACTIVATED PTT [SQPTT] Order #: [id number] FUTURE PROTHROMBIN TIME/PT [SQPT] Order #: [id number] FUTURE TUBES - DRAW EXTRA [SQXTUBE] Order #: [id number] FUTURE PROTEIN C FUNCT [SQPRCFUN] Order #: [id number] FUTURE PROTEIN S CLOTTABLE [SQPRSCLT] Order #: [id number] FUTURE Follow-up and Disposition History Recorded Prescriptions as of 04/12/2019 Sig: NORGESTIMATE 0.25 MG-ETHINYL * Take 1 tablet by mouth once d* Problem List As Of Date: 04/12/2019 (None) Encounter Status:Closed by FORD MORGAN MD on 04/12/19 [facility] PROGRESSon 04-12-2019 PROGRESS HNO ID: [id number] Author: Ford Morel) Cathy Service: ? Author Type: Physician Type: Progress Notes Filed: 04/12/2019 4:48 PM Note Text: PATIENT NAME: Loyda Adame [facility] NO.: [id number] ATTENDING PHYSICIAN: Ford Morgan MD DATE OF [...] me to participate in Miss Loyda Adame [facility], if there are any questions or concerns please do not hesitate to contact me at the number below. Ford Morgan M.D. Hematology/Medical Oncology [facility] [place] [phone] CC: Normal [facility] Vital Signs Date Time Vital Sign Value Performing Clinician Camilo klein 04-11-2024 13:50-0500 Blood Pressure Location Israel NILL [facility] General Surgery [place] 04-11-2024 13:50-0500 Diastolic blood pressure 74 mm[Hg] Israel NILL [facility] Surgery [place] 04-11-2024 13:50-0500 Heart rate 87 /min Israel NILL [facility] Surgery [place] 04-11-2024 13:50-0500 Respiratory rate 16 /min Israel NILL [facility] General Surgery [place] 04-11-2024 13:50-0500 Systolic blood pressure 106 mm[Hg] Israel NILL [facility] General Surgery [place] 12-31-2023 08:48-0400 Blood Pressure Location Israel NILL [facility] General Surgery [place] 12-31-2023 08:48-0400 Diastolic blood pressure 87 mm[Hg] Israel NILL [facility] General Surgery [place] 12-31-2023 08:48-0400 Heart rate 81 /min Israel NILL [facility] General Surgery [place] 12-31-2023 08:48-0400 Respiratory rate 16 /min Israel NILL [facility] General Surgery [place] 12-31-2023 08:48-0400 Systolic blood pressure 120 mm[Hg] Israel NILL [facility] Encounters Encounter Date Encounter Type Care Provider Facility Start: 04-11-2024 End: 04-11-2024 ambulatory Israel POND Facility: [place] Start: 04-11-2024 End: 04-11-2024 Patient encounter procedure Israel POND [facility] Start: 03-24-2024 ambulatory Israel PODN Facility:[facility] Start: 02-01-2024 End: 02-01-2024 Patient encounter procedure Ki Lock DO Work Phone: [facility] Comment on above: Encounter for drug s creening Start: 02-01-2024 End: 02-01-2024 ambulatory ROSALVA ANITHA Not Available Start: 01-14-2024 End: 01-14-2024 ambulatory Anatoly PARK Facility:[facility] Start: 12-31-2023 End: 12-31-2023 ambulatory Shaw Jorgensen Facility:[facility] Start: 12-31-2023 End: 12-31-2023 Patient encounter procedure Israel POND [facility] Start: 12-25-2023 ambulatory Israel POND Facility:[facility]rique [...] laboratory examination DR ROSALVA WELSH . [facility] Start: 10-25-2021 End: 10-25-[address] ROSALVA WELSH . Facility:[facility] Start: 10-23-2021 End: 10-24-[address] ROSALVA WELSH . Facility:[facility] Start: 10-23-2021 End: 10-24-2021 Encounter for preprocedural laboratory examination DR ROSALVA WELSH . Facility:[facility] Start: 10-22-2021 Encounter for other preprocedural examination DR ROSALVA WELSH . [facility] Start: 10-17-2021 End: 10-18-[address] [...] DERM [address] [place] [id number] Rafaela Encarnacion, REAL ESTATE OFFICE SUPERVISOR-BOILER ROOM OPERATOR [address] [place] [address] [facility] Start: 12-15-2023 End: 12-15-2023 Patient encounter procedure 12/15/2023 11:00 AM EDT Office Visit [facility] [address] [place] [phone] Rosalva Welsh, DO [address] [place] [address] [facility] Start: 11-29-2023 Influenza vaccination Influenza Vacc ine (#1) [facility] Start: 05-11-2023 End: 05-11-2023 Patient encounter procedure 05/11/2023 4:05 PM EST Office Visit [facility] [address] [place] [id number] Rafaela Encarnacion APRN-BOILER ROOM OPERATOR [address] [place] [address] [facility] Start: 11-28-2022 Influenza vaccination Influenza Vacc ine (#1) [facility] Immunizations Immunization Date Immunization Notes Care Provider Fa [facility] 03-10-2022 SARS-CoV-2 (COVID-19 ) mRNAMUL.ORD![id number] Israel POND [facility] 01-09-2022 influenza virus vaccine, unspecified formulation Rosalva Welsh DO Work Phone: [facility] 09-07-2020 SARS-CoV-2 (COVID-19 ) mRNA BNT-162b2 vax Israel NILL [facility] Comment on above: Result Comment: 2023: TPVAL 08-17-2020 SARS-CoV-2 (COVID-19 ) mRNA BNT-162b2 vax Israel NILL [facility] Comment on above: Result Comment: 2023: TPVAL Payers Date Payer Category Payer Medicaid [id number] 2023 Unknown [id number] 2022 Unknown BCBS BCBS [id number] [id number] 2022-Present [phone] [address] [place] [address] [id number] 2022 Unknown [id number] 2000 Unknown [id number] 2.16.840.1.490237.3.579.2.593 2000 Unknown [id number] 2.16.840.1.135169.3.579.2.593 1999 Unknown [id number] 2.16.840.1.945286.3.579.2.593 1999 Unknown [id number] 2.16.840.1.772573.3.579.2.593 1999 Unknown [id number] 2.16.840.1.902293.3.579.2.593 1999 Unknown [id number] 2.16.840.1.949619.3.579.2.593 1999 Unknown [id number] 2.16.840.1.617271.3.579.2.1259 1999 Unknown [id number] 2.16.840.1.513015.3.579.2.1259 1999 Unknown [id number] 2.16.840.1.549810.3.579.2.1259 1999 Unknown [id number] 2.16.840.1.432845.3.579.2.1259 1999 Unknown [id number] 2.16.840.1.112225.3.579.2.1259 1999 Unknown [id number] 2.16.840.1.261406.3.579.2.1259 1999 Unknown [id number] 2.16.840.1.931468.3.579.2.727 1999 Unknown [id number] 2.16.840.1.515088.3.579.2.727 1960 Self-pay 1960 Unknown [id number] Unknown [id number] [id number] Social History Date Type Detail Facility Start: 09-03-2022 End: 04-11-2024 Tobacco smoking status NHIS Never smoked tobacco [facility] Start: 09-03-2022 Tobacco use and exposure Smokeless tobacco non-user [facility] Start: 04-22-2023 End: 09-07-2023 Alcohol intake Lifetime non-drinker (finding) [facility] Start: 04-22-2023 End: 05-19-2023 History of Social function [facility] Start: 04-22-2023 End: 05-19-2023 Tobacco use panel [facility] Start: 2000 Sex Assigned At Female [facility] Start: 08-27-2022 Gender identity Identifies as female gender (finding) [facility] Start: 08-27-2022 Sexual orientation Heterosexual (finding) [facility] Tobacco smoking status Former sm okeless tobacco user, quit more than 30 days ago [facility] Functional Status Date Assessment Result Facility 04-11-2024 Functional Status N/A [facility] 12-31-2023 Functional Status N/A [facility] History of Present illness Narrative 02-01-2024 Darren Jones MA - 02/01/2024 9:35 AM EST Note Date & Type Note Facility 02-01-2024 History of Presen t illness Narrative Pt presents today for a pre-employment 5 panel drug screen for [employer]. Pt verified by photo ID. documented in this encounter [facility] Evaluation + Plan note 12-31-2023 Note Date & Type Note Facility 12-31-2023 Evaluation + Plan note Diagnostic Tests PendingHepatic Function Panel 12/31/23 [facility] 12-31-2023 Note Date & [...] Immunizations Vaccine Date Status Comments SARS-CoV-2 (COVID-19) [id number] 03/10/2022 Recorded SARS-CoV-2 (COVID-19) mRNA BNT-162b2 vax 09/07/2020 Recorded 2023-12-25: TPVAL SARS-CoV-2 (COVID-19) m (more content not included)... [facility] Comment on above: Result Comment: Elec tronically Signed By: DEJAH ARDON, [place] Oh\Date and Time Signed: 12/31/23 09:48 EDT History of Present illness Narrative 05-05-2023 Gina Edouard, LEHR STRIPPER - 05/05/2023 8:10 AM EST Note Date & Type Note Facility 05-05-2023 History of Presen t illness Narrative Reason for Appointment: Patient ID: Loyda Adame is a 23 y.o. female who presents for Results Patient presents today via telephone call for a telehealth appointment. Patients Phone #: [phone] (mobile) Current Medications: has a current medication [...] negaitve TONSILLECTOMY 03/27/2010 WISDOM TOOTH EXTRACTION 01/26/2016 [place] teeth No Known Allergies Vitals: Estimated body [...] Rosalva Welsh DO documented in this encounter [facility] Clinical Note 10-25-2021 Note Date & Type Note Facility 10-25-2021 Note OPERATIVE NOTE OPERATION DATE: 11/01/2021 PROCEDURE: Diagnostic laparoscopy with chromopertubation. PREOPERATIVE DIAGNOSIS: 1. Pelvic pain. 2. Possible tubal dysfunction. POSTOPERATIVE DIAGNOSIS: 1. Pelvic pain. 2. Possible tubal dysfunction. ANESTHESIA: General. SURGEON: Rosalva Welsh D.O. ADOBE DEVELOPER: DUC [place] URINE OUTPUT: Yellow and [...] to Recovery Room in stable condition [facility] Evaluation note Note Date & Type Note Facility Evaluation note Diagnosis Encounter to discuss test results Other specified counseling documented in this encounter [facility] Evaluation note Note Date & Type Note Facility Evaluation note Diagnosis Encounter for drug screening documented in this encounter [facility] Hospital course Narrative Note Date & Type Note Facility Hospital course Narrative No data available for this section [facility] Hospital Discharge instructions Note Date & Type Note Facility Hospital Discharge instructions No data available for this section [facility] Progress note Note Date & Type Note Facility Progress note No data available for this section [facility] [place] Summary Purpose Family History No Family History [...] section and content) DATE CREATED AUTHOR 05/18/2019 [facility] DATE CREATED AUTHOR AUTHOR'S ORGANIZ ATION 07/20/2022 [facility] DATE CREATED AUTHOR AUTHOR'S ORGANIZ ATION 02/02/2024 [facility] EPIC DATE CREATED AUTHOR AUTHOR'S ORGANIZ ATION 04/14/2024 [facility] Reason for Visit (unrecogniz ed section and content) Reason Comments Results Care Teams (unrecognized sec tion and content) Associate Director Relationship Specialty Start Date End Date Shaw Jorgensen MD [address] [place] [address] [phone] PCP - General Family Medicine 09/03/22 Associate Director Relationship Specialty Start Date End Date Shaw Jorgensen MD [address] [place] [address] PCP - General Family Medicine 09/03/22 FOR [...] BE BASED ON THE PRIMARY CLINICAL RECORDS. [facility] provides no warranty or guarantee of the accuracy or completeness of information in this document.
[2024-05-31 14:02] LABS: HCG Quantitative 89753 mIU/mL
== END 2024-05-31 12:01 | disposition home or self-care (01) ==
LOC: LAB 12:01
PROVIDERS: PCP Family Medicine; Visit Provider Nurse Practitioner Family
DX: N91.2 Amenorrhea, unspecified (principal)
CPT/HCPCS: 36415; 84702

== ENCOUNTER 2024-08-05 11:48 | Outpatient (OUT) | payer OTHER, SELFPAY ==
[2024-08-05 12:55] LABS: Basophils Percent Auto 0.5 % (0.2-2.0); Eosinophils Absolute Auto 0.2 10^3/uL (0.0-0.7); Hematocrit 35.4 % (36.0-48.0); Hemoglobin 12.3 g/dL (12.0-16.0); Immature Granulocytes Abs Auto 0.03 10^3/uL (0.00-0.03); Immature Granulocytes Pct Auto 0.4 % (0.0-0.5); Lymphocytes Absolute Auto 1.3 10^3/uL (1.2-3.8); Lymphocytes Percent Auto 15.5 % (20.5-60.0); Mean Corpuscular HGB Conc 34.7 g/dL (29.9-35.2); Mean Corpuscular Hemoglobin 31.6 pg (26.7-34.0); Mean Platelet Volume 9.5 fL (9.5-13.5); Monocytes Absolute Auto 0.5 10^3/uL (0.3-0.8); Monocytes Percent Auto 5.9 % (1.7-12.0); Neutrophils Absolute Auto 6.1 10^3/uL (1.4-6.5); Neutrophils Percent Auto 75.7 % (43.0-75.0); Platelet Count 307 10^3/uL (150-450); Red Blood Count 3.89 10^6/uL (4.20-5.40); Red Cell Distribution Width 13.8 % (11.0-15.0); White Blood Count 8.1 10^3/uL (4.0-11.0)
[2024-08-05 13:40] LABS: BOX Test Reference Lab UNITY; BOX Test Sent Out UNITY
[2024-08-05 13:42] LABS: Estimated Average Glucose 88 mg/dL; Glycohemoglobin A1C 4.7 % (4.5-6.2)
[2024-08-06 05:07] LABS: HIV Ab/p24 Ag Screen Non Reactive (Non Reactive)
[2024-08-06 06:08] LABS: HBsAg Screen Negative (Negative); HCV Ab Non Reactive (Non Reactive)
[2024-08-06 07:07] LABS: Rubella Antibodies, IgG 2.66 index (Immune >0.99)
[2024-08-06 13:12] LABS: Rapid Plasma Reagin, Quant Non Reactive titer (NonRea<1:1)
[2024-08-08 19:20] LABS: Gest. Age on Collection Date 17.4 weeks (.); Gestat. Age Based On Ultrasound (.); Insulin Dep Diabetes No (.); Maternal Age At EDD 25.9 yr (.); OSBR Risk 1 IN 8106 (.); Results Report (.)
== END 2024-08-05 11:49 | disposition home or self-care (01) ==
LOC: LAB 11:50
PROVIDERS: PCP Family Medicine; Visit Provider Obstetrics & Gynecology
DX: Z34.01 Encounter for supervision of normal first pregnancy, first trimester (principal); Z36.1 Encounter for antenatal screening for raised alphafetoprotein level
CPT/HCPCS: 36415; 80307; 82105; 83036; 85025; 86592; 86762; 86803; 86850; 86900; 86901; 87086; 87340; 87389

== ENCOUNTER 2024-08-08 15:09 | Outpatient (REF) | payer OTHER, SELFPAY ==
[2024-08-08 15:41] LABS: Amphetamine Screen Urine NEGATIVE (NEGATIVE); Benzodiazepines Screen Urine NEGATIVE (NEGATIVE); Cannabinoid Screen Urine NEGATIVE (NEGATIVE); Cocaine Screen Urine NEGATIVE (NEGATIVE); Methadone Screen Urine NEGATIVE (NEGATIVE); Methamphetamines Screen Urine NEGATIVE (NEGATIVE); Opiate Screen Urine NEGATIVE (NEGATIVE); Phencyclidine Screen Urine NEGATIVE (NEGATIVE); Tricyclic Antidepressant Urine NEGATIVE (NEGATIVE)
[2024-08-08 15:42] LABS: Barbiturates Screen Urine NEGATIVE (NEGATIVE); Buprenorphine Screen Urine NEGATIVE (NEGATIVE); Oxycodone Screen Urine NEGATIVE (NEGATIVE)
== END 2024-08-08 15:10 | disposition home or self-care (01) ==
LOC: LAB 15:09
PROVIDERS: PCP Family Medicine; Visit Provider Obstetrics & Gynecology
DX: Z34.01 Encounter for supervision of normal first pregnancy, first trimester (principal); N92.6 Irregular menstruation, unspecified
CPT/HCPCS: 80307; 87086

== ENCOUNTER 2024-09-26 09:26 | Outpatient (OUT) | payer OTHER, SELFPAY ==
--- OUTSIDE RECORDS SUMMARY | 2024-09-26 09:28 | XMS_ITS | Encounter Summary ---
Author Organization [facility] Address [address] [place] [address] Care Team Providers Care Distribution Center Assistant Name Role Phone Shaw Jorgensen MD Primary Care Provider [phone] Encounter Details Date Type Department Care Team (Late st Contact Info) Description 09/24/2023 Abstract [facility] [address] [place] [address] Vaishali Villagomez LPN [address] [place], [place] [id number] Social History Tobacco Use Types Packs/Day Years Used Date Smoking Tobacco: Never Smokeless Tobacco: Never Alcohol Use Standard Drinks/Week Comments Never 0 (1 standard drink = 0.6 oz pur e alcohol) Comments No Sex and Gender Information Value Date Recorded Sex Assigned at Female 08/27/2022 8:37 AM EDT Legal Sex Female 7:05 PM EDT Gender Identity Female 08/27/2022 8:37 AM EDT Sexual Orientation Straight 08/27/2022 8: 37 AM EDT documented as of this encounter Plan of Treatment Upcoming Encounters Date Type Department Care Team (Late st Contact Info) Description 09/27/2024 10:30 AM EDT Routine [facility] [address] [place] [id number] Tran Gomez PA [address] [address] documented as of this encounter Visit Diagnoses Not on filedocumented in this encounter Care Teams Distribution Center Assistant Relationship Specialty Start Date End Date Shaw Jorgensen MD [address] [place] [address] PCP - General Family Medicine 09/03/22 documented as of this encounter
--- OUTSIDE RECORDS SUMMARY | 2024-09-26 09:28 | XMS_ITS | Clinical Summary ---
Author Organization [email or web address] [facility] Address [id number] [address] [place] [address] Care Team Providers Care Python Web Developer Name Role Phone Unavailable Primary Care Provider Unavailabl e Social History Tobacco Use Types Packs/Day Years Used Date Smoking Tobacco: Never Assessed Childcare Answer Date Recorded Childcare Unknown 09/08/2018 Employment Answer Date Recorded Employment Unknown 09/08/2018 Comments Unknown Sex and Gender Information Value Date Recorded Sex Assigned at Not on file Legal Sex Female 11:22 AM EDT Gender Identity Not on file Sexual Orientation Not on file Plan of Treatment Not on file Medical Devices Not on file
--- OUTSIDE RECORDS SUMMARY | 2024-09-26 09:28 | XMS_ITS | Encounter Summary ---
Author Organization [facility] Address [address] [place] [address] Care Team Providers Care Registered Dietician Name Role Phone Shaw Jorgensen MD Primary Care Provider [phone] Encounter Details Date Type Department Care Team (Late st Contact Info) Description 08/30/2024 Abstract [facility] [address] [place] [address] Aden Welsh, DO [address] [place] [address] Social History Tobacco Use Types Packs/Day Years Used Date Smoking Tobacco: Never Smokeless Tobacco: Never Alcohol Use Standard Drinks/Week Comments Never 0 (1 standard drink = 0.6 oz pur e alcohol) Estimated Date of Delivery Comme nts Yes 01/10/2025 Based on Ultraso und Sex and Gender Information Value Date Recorded [...] AM EDT Routine [facility] [address] [place] [phone] Tran Gomez PA [address] [place], [place] [id number] documented as of this encounter Visit Diagnoses Not on filedocumented in this encounter Care Teams Registered Dietician Relationship Specialty Start Date End Date Shaw Jorgensen MD [address] [facility] [place] [address] PCP - General Family Medicine 09/03/22 documented as of this encounter
--- OUTSIDE RECORDS SUMMARY | 2024-09-26 09:28 | XMS_ITS | Encounter Summary ---
Author Organization [facility] Address [address] [place] [address] [place] [address] Care Team Providers Care Employee Relation Manager Name Role Phone Shaw Jorgensen MD Primary Care Provider [phone] Encounter Details Date Type Department Care Team (Late st Contact Info) Description 08/08/2024 Abstract [facility] [address] [place] [address] Aden Welsh, DO [address] [place] [address] Social History Tobacco Use Types Packs/Day Years [...] AM EDT Routine [facility] OB [address] [place] [phone] Tran Gomez PA [address] [place], [place] [id number] documented as of this encounter Visit Diagnoses Not on filedocumented in this encounter Care Teams Employee Relation Manager Relationship Specialty Start Date End Date Shaw Jorgensen MD [address] [facility] [place] [address] PCP - General Family Medicine 09/03/22 documented as of this encounter
--- OUTSIDE RECORDS SUMMARY | 2024-09-26 09:28 | XMS_ITS | Encounter Summary ---
Author Organization [facility] Address [address] [place] [address] Care Team Providers Care Mixer Lever Operator Name Role Phone Shaw Jorgensen MD Primary Care Provider [phone] Encounter Details Date Type Department Care Team (Latest Contact Info) Description 09/20/2024 Travel Social History Tobacco Use Types Packs/Day Years [...] Upcoming Encounters Date Type Department Care Team ( Contact Info) Description 09/27/2024 10:30 AM EDT Routine [facility] OB [address] [place] [phone] Tran Gomez PA [address] [place] [address] documented as of this encounter Goals Goal Patient Goal Type Associated Problems Recent Progress Patient-Stated? Author Reminders Care Plan OB Reminders No Open Scheduling, Background documented as of this encounter Visit Diagnoses Not on filedocumented in this encounter Additional Health Concerns Active Problems Noted Date Diagnosed Date OB Reminders 09/20/2024 documented as of this encounter Care Teams Mixer Lever Operator Relationship Specialty Start Date End Date Shaw Jorgensen MD [address] [place] [address] PCP - General Family Medicine 09/03/22 documented as of this encounter
--- OUTSIDE RECORDS SUMMARY | 2024-09-26 09:28 | XMS_ITS | Encounter Summary ---
Author Organization [facility] Address [address] [place] [address] Care Team Providers Care Silviculturist Name Role Phone hSaw Jorgensen MD Primary Care Provider [phone] Encounter Details Date Type Department Care Team (Late st Contact Info) Description 08/15/2024 Abstract [facility] [address] [facility] [address] [place] [address] Aden Welsh, DO [address] [place] [address] Social History Tobacco Use Types Packs/Day Years [...] AM EDT Routine [facility] OB [address] [place] [phone] Tran Gomez PA [address] [place], [place] [phone] documented as of this encounter Visit Diagnoses Not on filedocumented in this encounter Care Teams Silviculturist Relationship Specialty Start Date End Date Shaw Jorgensen MD [address] [facility] [place] [address] PCP - General Family Medicine 09/03/22 documented as of this encounter
--- OUTSIDE RECORDS SUMMARY | 2024-09-26 09:28 | XMS_ITS | Clinical Summary ---
Author Organization [facility] Address [address] [place] [address] Care Team Providers Care Director Oncology Name Role Phone Shaw Jorgensen MD Primary Care Provider [phone] Allergies No known active allergies Medications cetirizine (ZyrTEC) 10 MG tablet 1 (one) time each day at the same time. Active DULoxetine (Cymbalta) [address] capsule Take 60 mg by mouth in the morning. Active Vit-Fe Fumarate-FA ( VITAMIN PO) Take by mouth Active magnesium oxide (Mag-Ox) 400 MG tabletIndication s:, unspecified gestational age ([facility]) Take 1 tablet (400 mg) by mouth Daily 30 tablet 6 08/05/2024 09/05/19 25 Active Problems Problem Noted Date Diagnosed Date Pelvic pain in female 04/10/2023 Estimated Date of Delivery Comme nts Yes 01/10/2025 Based on Ultraso und Encounters Date Type Department Care Team Description 09/20/2024 Travel 09/05/2024 Telephone [facility] [address] [place] [id number] Marlene Dunn MA 09/01/2024 Abstract [facility] [address] [place] [address] Aden Welsh, DO 08/30/2024 Abstract [facility] [address] [place] [address] [place] [address] Aden Welsh, DO 08/30/2024 Abstract [facility] [address] [place] [address] Aden Welsh, DO 08/29/2024 2:30 PM EDT Routine [facility] [address] [place] [address] [place] [address] Aden Welsh, DO Second trimester ([facility]); 20 weeks gestation of ([facility]) 08/29/2024 1:00 PM EDT Ancillary Procedure [facility] [address] [place] [address] Screening, , for anatomic survey ([facility]) 08/22/2024 Travel 08/15/2024 Abstract [facility] [address] [place] [address] [place] [address] Aden Welsh, DO 08/15/2024 Abstract [facility] [address] [place] [address] [place] [address] Aden Welsh, DO 08/08/2024 Clinisync Result Encounter [facility] External Department Unsolicited Aden Welsh, DO 08/08/2024 Abstract [facility] [address] [place] [address] [place] [address] Aden Welsh, DO 08/05/2024 11:00 AM EDT Initial [facility] [place] [address] GA: [id number] 08/05/2024 10:30 AM EDT Ancillary Procedure [facility] [address] [place] [address] Missed menses 08/05/2024 Clinisync Result Encounter [facility] External Department Unsolicited Aden Welsh DO 08/05/2024 Travel 07/29/2024 Travel from Last 3 Months Family History Medical History Relation Name Comments Endometriosis Mother acute Heart disease Paternal Grandmother Melanoma Paternal Grandmother Relation Name Status Comments Father Alive Maternal Grandfather Maternal Grandmother Alive Mother Alive Paternal Grandfather Paternal Grandmother Alive Sister Alive Social History Tobacco Use Types Packs/Day Years Used Date Smoking Tobacco: Never Smokeless Tobacco: Never Tobacco Cessation:Counseling Given: Not Answered Alcohol Use Standard Drinks/Week Comments Never 0 [...] Orientation Straight 08/27/2022 8: 37 AM EDT Last Filed Vital Signs Vital Sign Reading Time Taken Comments Blood Pressure 114/72 08/29/2024 2:46 PM EDT Pulse - - Temperature - - Respiratory Rate - - Oxygen Saturation - - Inhaled Oxygen Concentration - - Weight 71.4 kg (157 lb 8 oz) 08/29/2024 2:46 PM EDT Height 165.1 cm (5' 5 ) 08/03/2023 10:00 AM EDT Body Mass Index 26.21 08/03/2023 10:00 AM EDT Plan of Treatment Upcoming Encounters Date Type Department Care Team (Late st Contact Info) Description 09/27/2024 10:30 AM EDT Routine [facility] [address] [place] [address] Tran Gomez PA [address] [place] [address] Health Maintenance Due Date Last Done Comments Influenza Vaccine (Season Ended) 2024 01/09/2022, 01/20/2019, 2018, Additional history exists Goals Goal Patient Goal Type Associated Problems Recent Progress Patient-Stated? Author Reminders Care Plan OB Reminders No Open Scheduling, Background Procedures Procedure Name Priority Date/Time Associated Diagnosis Comments CULTURE, URINE, ROUTINE Routine 08/29/2024 4:26 PM EDT Missed menses POCT URINALYSIS DIPSTICK Routine 08/29/2024 2:51 PM EDT Second trimester ([facility]) US OB 14+ WEEKS ANATOMY SCAN Routine 08/29/2024 1:58 PM EDT Screening, , for anatomic survey ([facility]) [facility] DRUG SCREEN RAPID (URINE) Routine 08/08/2024 3:09 PM EDT AFP, SERUM, OPEN SPINA BIFIDA Routine 08/05/2024 12:10 PM EDT HBSAG SCREEN Routine 08/05/2024 12:10 PM EDT RAPID PLASMA REAGIN, QUANT Routine 08/05/2024 12:10 PM EDT HCV ANTIBODY RFX TO QUANT PCR Routine 08/05/2024 12:10 PM EDT ALL RUBELLA IGG AB Routine 08/05/2024 12 :10 PM EDT HIV AB/P24 AG WITH REFLEX Routine 08/05/2024 12:10 PM EDT MLR HEMOGLOBIN A1C Routine 08/05/2024 12 :10 PM EDT BOX TEST Routine 08/05/2024 12:10 PM EDT ALL TYPE AND SCREEN Routine 08/05/2024 1 2:10 PM EDT ALL CBC WITH AUTO DIFF Routine 08/05/2024 12:10 PM EDT US OB LIMITED 1+ FETUSES Routine 08/05/2024 11:08 AM EDT Missed menses from Last 3 Months Results * Urine culture (08/29/2024 4:26 PM EDT) Urine Urine specimen obtained by clean catch procedure / Unknown [facility] LAB MICROBIOLOGY - GENERAL ORDER TRENA Final Result EXTERNAL LAB * POCT urinalysis dipstick manually resulted (08/29/2024 2:51 PM EDT) Color, UA Yellow Clarity, UA Clear Glucose, UA Negative Negative - 2000(110) ++++ mg/dL Bilirubin, UA Negative Negative - 4(70) +++ mg/dL Ketones, UA Negative Negative - 160(16) ++++ mg/dL Spec Grav, UA 1.010 1 - 1.03 Blood, UA Negative Negative - 50 Ralf/mcL pH, UA 7.0 5 - 9 Protein, UA Negative Negative - 2000(20) ++++ mg/dL Urobilinogen, UA 0.2 0.2 - 12 mg/dL Leukocytes, UA Negative Negative - 500+++ Joce/mcL Nitrite, UA Negative Negative - Positive Urine 08/29/2024 2:51 PM EDT [facility] POINT OF CARE TEST ENTER/EDIT OR DERABLES Final Result * US OB 14+ weeks anatomy scan (08/29/2024 1:58 PM EDT) Anatomical Region Laterality Modality Body Ultrasound 08/30/2024 11:3 4 PM EDT Narrative 08/30/2024 11:34 PM EDT EXAM: US OB 14+ WEEKS ANATOMY SCAN HISTORY: Anatomy. JAN 01/10/2025. A1. COMPARISON: U/S OB 08/05/2024 TECHNIQUE: Two-dimensional transabdominal grayscale ultrasound imaging of the pelvis was performed. Transvaginal ultrasound examination was also performed. FINDINGS: Gestation: Single Presentation: Breech Cardiac Activity: 155 beats per minute Placental Location: Posterior with no sonographic abnormalities identified. Distance from Placental Tip to Cervix: 4.6 cm Cervical Length: 4.8 cm Amniotic Fluid: Not measured, appears visually adequate MEASUREMENTS: BPD: 5.0 cm EGA: 21 weeks 0 days HC: 18.4 cm EGA: 20 weeks 5 days AC: 15.1 cm EGA: 20 weeks 2 days FL: 3.3 cm EGA: 20 weeks 3 days HC/AC Ratio: 1.22 (1.07-1.25) Gestational age by today's ultrasound is 20 weeks for days (+/- 10 days gestation). Estimated Weight: 355 grams, +/- 53 grams ( 0 lb 13 oz). Weight Percentile for gestational age: 25th no uterine thickened crazy somebody wishes to and I can not I can not inhale you actually externally ANATOMY C-Spine: Unremarkable T-Spine: Unremarkable L-Spine: Unremarkable Sacrum: Unremarkable Four Chamber Heart: Unremarkable LVOT: Unremarkable RVOT: Not visualized Stomach: Unremarkable Kidneys: Unremarkable Bladder: Unremarkable Diaphragm: Unremarkable Cord insertion: Unremarkable Cord vessels: Three Lateral Ventricles: Unremarkable Cerebellum: Unremarkable Cisterna Magna: Unremarkable Posterior Fossa: Unremarkable Right Femur: Unremarkable Left Femur: Unremarkable Right Tib/Fib: Unremarkable Left Tib/Fib: Unremarkable Right Rad/Ulnar: Unremarkable Left Rad/Ulnar: Unremarkable Right Humerus: Unremarkable Left Humerus: Unremarkable Nose/Lips: Unremarkable Profile: Unremarkable Orbits: Unremarkable IMPRESSION: 1. Single, live intrauterine gestation 20 weeks, 6 days by LMP. Today's ultrasound measurements correlate with a gestational age of 20 weeks 4 days. Estimated weight is 355 grams, +/- 53 grams ( 0 lb 13 oz) which correlates to the 25%. 2. Nonvisualization of the RVOT. Remaining anatomy appears unremarkable. Interpreted by: Electronically signed by TRISHA LOPEZ II, MD, PHD at 30-Aug-2024 11:32:36 PM [facility] Procedure Note Trisha Lopez MD - 08/30/2024 EXAM: US OB 14+ WEEKS ANATOMY SCAN HISTORY: Anatomy. JAN 01/10/2025. A1. COMPARISON: U/S OB 08/05/2024 TECHNIQUE: Two-dimensional transabdominal grayscale ultrasound imaging ofthe pelvis was performed. Transvaginal ultrasound examination was alsoperformed. FINDINGS: Gestation: Single Presentation: Breech Cardiac Activity: 155 beats per minute Placental Location: Posterior with no sonographic abnormalitiesidentified. Distance from Placental Tip to Cervix: 4.6 cm Cervical Length: 4.8 cm Amniotic Fluid: Not measured, appears visually adequate MEASUREMENTS: BPD: 5.0 cm EGA: 21 weeks 0 days HC: 18.4 cm EGA: 20 weeks 5 days AC: 15.1 cm EGA: 20 weeks 2 days FL: 3.3 cm EGA: 20 weeks 3 days HC/AC Ratio: 1.22 (1.07-1.25) Gestational age by today's ultrasound is 20 weeks for days (+/- 10 daysgestation). Estimated Weight: 355 grams, +/- 53 grams ( 0 lb 13 oz). Weight Percentile for gestational age: 25th no uterine thickened crazysomebody wishes to and I can not I can not inhale you actuallyexternally ANATOMY C-Spine: Unremarkable T-Spine: Unremarkable L-Spine: Unremarkable Sacrum: Unremarkable Four Chamber Heart: Unremarkable LVOT: Unremarkable RVOT: Not visualized Stomach: Unremarkable Kidneys: Unremarkable Bladder: Unremarkable Diaphragm: Unremarkable Cord insertion: Unremarkable Cord vessels: Three Lateral Ventricles: Unremarkable Cerebellum: Unremarkable Cisterna Magna: Unremarkable Posterior Fossa: Unremarkable Right Femur: Unremarkable Left Femur: Unremarkable Right Tib/Fib: Unremarkable Left Tib/Fib: Unremarkable Right Rad/Ulnar: Unremarkable Left Rad/Ulnar: Unremarkable Right Humerus: Unremarkable Left Humerus: Unremarkable Nose/Lips: Unremarkable Profile: Unremarkable Orbits: Unremarkable IMPRESSION: 1. Single, live intrauterine gestation 20 weeks, 6 days by LMP. Today'sultrasound measurements correlate with a gestational age of 20 weeks 4days. Estimated weight is 355 grams, +/- 53 grams ( 0 lb 13 oz)which correlates to the 25%. 2. Nonvisualization of the RVOT. Remaining anatomy appearsunremarkable. Interpreted by: Electronically signed by TRISHA LOPEZ II, MD, PHD [id number] 11:32:36 PM [facility] us Aden Anitha DO IMG OB US PROCEDURES Final Resul t * TBH DRUG SCREEN RAPID (URINE) (08/08/2024 3:09 PM EDT) CANNABINOID SCREEN URINE NEGATIVE NEGATIVE TBH PHENCYCLIDINE SCREEN URINE NEGATIVE NEGATIVE TBH COCAINE SCREEN URINE NEGATIVE NEGATIVE TBH METHAMPHETAMINES SCREEN URINE NEGATIVE NEGATIVE TBH OPIATE SCREEN URINE NEGATIVE NEGATIVE TBH AMPHETAMINE SCREEN URINE NEGATIVE NEGATIVE TBH BENZODIAZEPINES SCREEN URINE NEGATIVE NEGATIVE TBH TRICYCLIC ANTIDEPRESSANT URINE NEGATIVE NEGATIVE TBH METHADONE SCREEN URINE NEGATIVE NEGATIVE TBH BARBITURATES SCREEN URINE NEGATIVE NEGATIVE TBH OXYCODONE SCREEN URINE NEGATIVE NEGATIVE TBH BUPRENORPHINE SCREEN URINE NEGATIVE NEGATIVE TBH Comment: DRUG CLASS TEST SYSTEM CUT-OFF CONCENTRATIONS ARE FOLLOWS: AMP (Amphetamine): 500 ng/mL BAR (Barbiturates): 200 ng/mL BZO (Benzodiazepines): 150 ng/mL BUP (Buprenorphine): 10 ng/mL MILO (Cocaine): 150 ng/mL mAMP (Methamphetamine): 500 ng/mL MTD (Methadone): 200 ng/mL OPI (Opiates): 100 ng/mL OXY (Oxycodone): 100 ng/mL PCP (Phencyclidine): 25 ng/mL THC (Cannabinoids): 50 ng/mL TCA (Trycyclic Antidepressants): 300 ng/mL 08/08/2024 3:09 PM EDT 08/08/2024 3:16 PM EDT Narrative CLINISYNC - 08/08/2024 3:42 PM EDT us Aden Anitha DO CLINISYNC Final Result Performing Organization Address [facility] Co de Phone Number [facility] * BOX TEST (08/05/2024 12:10 PM EDT) BOX TEST SENT OUT [facility] [address] [address] 08/05/24 [facility] 08/05/2024 12:1 0 PM EDT 08/05/2024 12:25 PM EDT Narrative CLINIS[facility] - 08/05/2024 1:40 PM EDT UNITY BOX Aden Anitha DO LAB BLOOD ORDERABLES Final Resul t Performing Organization Address [facility] de Phone Number [facility] * HBSAG SCREEN (08/05/2024 12:10 PM EDT) HBSAG SCREEN Negative Negative [facility] Comment: Performed at: CB - [address] [id number] Group Home Paraprofessional: Fer Turpin PhD, Phone: [phone] 08/05/2024 12:1 0 PM EDT 08/05/2024 12:25 PM EDT Narrative [facility] - 08/06/2024 1:12 PM EDT Aden Anitha DO LAB BLOOD ORDERABLES Final Resul t Performing Organization Address [facility] Co de Phone Number [facility] * RAPID PLASMA REAGIN, QUANT (08/05/2024 12:10 PM EDT) Pathologist [facility] RAPID PLASMA REAGIN, QUANT Non Reactive NonRea<1: 1 titer [facility] Comment: Please Note: This test does not meet current guidelines for screening and diagnosis of syphilis. This test is intended for following treatment response in patients being treated for syphilis infection. To screen for syphilis infection, a reflex cascade that includes both RPR and a treponema-specific assay should be utilized, such as Treponema pallidum (Syphilis) Screening [place] (129970) or Rapid Plasma Reagin (RPR) Test With Reflex to Quantitative RPR and Confirmatory Treponema pallidum Antibodies (782027). Performed at: [address] [id number] Group Home Paraprofessional: Fer Turpin PhD, Phone: [phone] 08/05/2024 12:1 0 PM EDT 08/05/2024 12:25 PM EDT Narrative [facility] - 08/06/2024 1:12 PM EDT Aden Anitha DO LAB BLOOD ORDERABLES Final Resul t Performing Organization Address City/[facility]/ZIP Co de Phone Number [facility] * HIV AB/P24 AG WITH REFLEX (08/05/2024 12:10 PM EDT) Pathologist [facility] HIV AB/P24 AG SCREEN Non Reactive Non Reactive [facility] Comment: HIV-1/HIV-2 antibodies and HIV-1 p24 antigen were NOT detected. There is no laboratory evidence of HIV infection. HIV Negative Performed at: [facility] - [facility] [id number] Group Home Paraprofessional: Fer Turpin PhD, Phone: [phone] 08/05/2024 12:1 0 PM EDT 08/05/2024 12:25 PM EDT Narrative TISHA - 08/06/2024 5:07 AM EDT Aden Welsh DO LAB BLOOD ORDERABLES Final Resul t [facility] * AFP, SERUM, OPEN SPINA BIFIDA (08/05/2024 12:10 PM EDT) RESULTS Report . [facility] TEST RESULTS: *Screen Negative* . [facility] GEST. AGE ON COLLECTION DATE 17.4 . weeks [facility] GESTAT. AGE BASED ON Ultrasound . [facility] Comment: 17.4 on 08/05/2024 Recalculations are not recommended when gestational dating by LMP and ultrasound are within 10 days. [age] [facility] RACE . [facility] WEIGHT 156 . lbs [facility] INSULIN DEP DIABETES No . TB MULTIPLE GESTATION No . [facility] AFP VALUE 44.0 . ng/mL [facility] AFP MOM 1.13 . [facility] OSBR RISK 1 IN 8106 . [facility] INTERPRETATION Comment . [facility] Comment: Interpretation: Screen Negative This result is screen negative for OSB. The AFP MoM calculated is based on the gestational age provided. MS-AFP can identify up to 80% of open neural tube defects. Closed neural tube defects and some open defects may not be detected by this test. This test does not screen for Down Syndrome or Trisomy 18. If screening for Down Syndrome or Trisomy 18 is desired, contact [facility] to discuss available options. The [place] [employer] recommends amniocentesis be offered to women age 35 and older. COMMENT: Comment . [facility] Comment: Radha Bautista, Ph.D., [facility] Director References: Available Upon Request. Multiples Of Median Cutoffs For AFP Elevations [place] 2.5 Black 2.8 IDD 2.0 Twins 4.5 Abbreviation Definitions IDD - Insulin Dep Diabetes OSBR - Open Spina Bifida Risk For further inquiries contact [facility] Services at [phone]. This test was developed and its performance characteristics determined by [employer]. It has not been cleared or approved by the Food and Drug Administration. Performed at: [place] [place], [place] [id number] Group Home Paraprofessional: Amado Tinoco [facility], Phone: [phone] 08/05/2024 12:1 0 PM EDT 08/05/2024 12:25 PM EDT Narrative CLINISYNC - 08/08/2024 7:20 PM EDT N N ULTRASOUND [id number] 3 17 N 1 Y 156 N N N N N White/ Mahoot Gameso DO LAB BLOOD ORDERABLES Final Resul t Performing Organization Address City/[facility] Co de Phone Number [facility] * HCV ANTIBODY RFX TO QUANT PCR (08/05/2024 12:10 PM EDT) Pathologist [facility] HCV AB Non Reactive Non Reactive [facility] INTERPRETATION: Comment . [facility] Comment: Not infected with HCV unless early or acute infection is suspected (which may be delayed in an immunocompromised individual), or other evidence exists to indicate HCV infection. Performed at: [address] [id number] Group Home Paraprofessional: Fer Turpin PhD, Phone: [phone] 08/05/2024 12:1 0 PM EDT 08/05/2024 12:25 PM EDT Narrative CLINISYNC - 08/06/2024 7:07 AM EDT Mahoot Gameso DO LAB BLOOD ORDERABLES Final Resul t [facility] * MLR HEMOGLOBIN A1C (08/05/2024 12:10 PM EDT) [facility] GLYCOHEMOGLOBIN A1C 4.7 4.5 - 6.2 % [facility] Comment: ADA RECOMMENDED LIMIT 4.0 - 6.0 ADA THERAPEUTIC TARGET < 7.0 ACTION SUGGESTED > 7.0 ESTIMATED AVERAGE GLUCOSE 88 mg/dL TB 08/05/2024 12:1 0 PM EDT 08/05/2024 12:25 PM EDT Narrative CLINISYNC - 08/05/2024 1:42 PM EDT Aden Anitha DO CLINISYNC Final Result Performing Organization Address City/[facility]/ZIP Co de Phone Number [facility] * ALL TYPE AND SCREEN (08/05/2024 12:10 PM EDT) Pathologist [facility] BLOOD TYPE A Positive TBH ANTIBODY SCREEN NEGATIVE TB 08/05/2024 12:1 0 PM EDT 08/05/2024 12:25 PM EDT Narrative CLINISYNC - 08/05/2024 1:40 PM EDT [facility] , Aden Anitha DO CLINISYNC Final Result Performing Organization Address [facility] Co de Phone Number [facility] * ALL RUBELLA IGG AB (08/05/2024 12:10 PM EDT) Pathologist [facility] RUBELLA ANTIBODIES, IGG 2.66 Immune >0.99 index TB Comment: Non-immune <0.90 Equivocal 0.90 - 0.99 Immune >0.99 Performed at: [address] [id number] Group Home Paraprofessional: Fer Turpin PhD, Phone: [phone] 08/05/2024 12:1 0 PM EDT 08/05/2024 12:25 PM EDT Narrative CLINISYNC - 08/06/2024 7:07 AM EDT Aden Anitha DO CLINISYNC Final Result Performing Organization Address [facility]/ZIP Co de Phone Number [facility] * (ABNORMAL) ALL CBC WITH AUTO DIFF (08/05/2024 12:10 PM EDT) [facility] WBC 8.1 4.0 - 11.0 10 3/uL TBH TBH RBC 3.89(L) 4.20 - 5.40 10 6/uL TBH TBH HGB 12.3 12.0 - 16.0 g/dL TBH TBH HCT 35.4(L) 36.0 - 48.0 % TBH TBH MCV 91.0 81.0 - 99.0 fL TBH TBH MCH 31.6 26.7 - 34.0 pg TBH TBH MCHC 34.7 29.9 - 35.2 g/dL TBH TBH RDW 13.8 11.0 - 15.0 % TBH TBH PLT 307 150 - 450 10 3/uL TBH TBH MPV 9.5 9.5 - 13.5 fL TBH NEUTROPHILS PERCENT AUTO 75.7(H) 43.0 - 75.0 % TBH LYMPHOCYTES PERCENT AUTO 15.5(L) 20.5 - 60.0 % TBH MONOCYTES PERCENT AUTO 5.9 1.7 - 12.0 % TBH TBH EO % 2.0 0.9 - 7.0 % TBH BASOPHILS PERCENT AUTO 0.5 0.2 - 2.0 % TBH IMMATURE GRANULOCYTES PCT AUTO 0.4 0.0 - 0.5 % TBH NEUTROPHILS ABSOLUTE AUTO 6.1 1.4 - 6.5 10 3/uL TBH LYMPHOCYTES ABSOLUTE AUTO 1.3 1.2 - 3.8 10 3/uL TBH MONOCYTES ABSOLUTE AUTO 0.5 0.3 - 0.8 10 3/uL TBH TBH EO # 0.2 0.0 - 0.7 10 3/uL TBH BASOPHILS ABSOLUTE AUTO 0.0 0.0 - 0.1 10 3/uL TBH IMMATURE GRANULOCYTES ABS AUTO 0.03 0.00 - 0.03 10 3/uL TBH 08/05/2024 12:1 0 PM EDT 08/05/2024 12:25 PM EDT Narrative CLINISYNC - 08/05/2024 1:00 PM EDT us Aden Anitha DO CLINISYNC Final Result [facility] * US OB limited 1+ fetuses (08/05/2024 11:08 AM EDT) Anatomical Region Laterality Modality Body Ultrasound 08/07/2024 8:23 PM EDT Narrative 08/07/2024 8:23 PM EDT EXAM: US OB LIMITED 1+ FETUSES HISTORY: Dating. Late care. Unknown LMP. A1. COMPARISON: None available. TECHNIQUE: Two-dimensional transabdominal grayscale ultrasound imaging of the pelvis was performed. FINDINGS: Gestation: Single Presentation: Breech Cardiac Activity: 153 beats per minute Placental Location: Posterior with no sonographic abnormalities identified. Distance from Placental Tip to Cervix: Not measured, appears visually adequate Cervical Length: Not demonstrated on the provided images Amniotic Fluid Index: Not measured, appears visually adequate MEASUREMENTS: BPD: 3.8 cm EGA: 17 weeks 3 days HC: 14.1 cm EGA: 17 weeks 3 days AC: 11.7 cm EGA: 17 weeks 3 days FL: 2.5 cm EGA: 17 weeks 3 days HC/AC Ratio: 1.21 (1.07-1.28) Gestational age by today's ultrasound is 17 weeks 3 days (+/- 9 days gestation). Estimated Weight: 195 grams, +/- 29 grams ( 0 lb 7 oz). IMPRESSION: 1. Single, live intrauterine gestation. Today's ultrasound measurements correlate with a gestational age of 17 weeks 3 days. JAN is 01/10/2025. Interpreted by: Electronically signed by TRISHA LOPEZ II, MD, PHD at 07-Aug-2024 08:22:24 PM [facility] Procedure Note Trisha Lopez MD - 08/07/2024 EXAM: US OB LIMITED 1+ FETUSES HISTORY: Dating. Late care. Unknown LMP. A1. COMPARISON: None available. TECHNIQUE: Two-dimensional transabdominal grayscale ultrasound imaging ofthe pelvis was performed. FINDINGS: Gestation: Single Presentation: Breech Cardiac Activity: 153 beats per minute Placental Location: Posterior with no sonographic abnormalitiesidentified. Distance from Placental Tip to Cervix: Not measured, appears visuallyadequate Cervical Length: Not demonstrated on the provided images Amniotic Fluid Index: Not measured, appears visually adequate MEASUREMENTS: BPD: 3.8 cm EGA: 17 weeks 3 days HC: 14.1 cm EGA: 17 weeks 3 days AC: 11.7 cm EGA: 17 weeks 3 days FL: 2.5 cm EGA: 17 weeks 3 days HC/AC Ratio: 1.21 (1.07-1.28) Gestational age by today's ultrasound is 17 weeks 3 days (+/- 9 daysgestation). Estimated Weight: 195 grams, +/- 29 grams ( 0 lb 7 oz). IMPRESSION: 1. Single, live intrauterine gestation. Today's ultrasound measurementscorrelate with a gestational age of 17 weeks 3 days. JAN is 01/10/2025. Interpreted by: Electronically signed by TRISHA LOPEZ II, MD, PHD [id number] 08:22:24 [facility] Aden Welsh DO IMG OB US PROCEDURES Final Resul t from Last 3 Months Additional Health Concerns Active Problems Noted Date Diagnosed Date OB Reminders 09/20/2024 Insurance [employer] Care Teams Director Oncology Relationship Specialty Start Date End Date Shaw Jorgensen MD [address] [place] [address] PCP - General Family Medicine 09/03/22
--- OUTSIDE RECORDS SUMMARY | 2024-09-26 09:28 | XMS_ITS | Encounter Summary ---
Author Organization [facility] Address [address] [place] [address] Care Team Providers Care Appeals Assistant Name Role Phone Shaw Jorgensen MD Primary Care Provider [phone] Encounter Details Date Type Department Care Team (Late st Contact Info) Description 09/01/2024 Abstract [facility] OB [address] [facility] [place] [address] Aden Welsh, DO [address] [facility] [address] [place] [address] Social History Tobacco Use Types Packs/Day Years [...] [address] [facility] [place] [address] Tran Gomez PA [address] [facility] [address] [address] [place], [place] [id number] documented as of this encounter Visit Diagnoses Not on filedocumented in this encounter Care Teams Appeals Assistant Relationship Specialty Start Date End Date Shaw Jorgensen MD [address] [facility] [place] [address] PCP - General Family Medicine 09/03/22 documented as of this encounter
--- OUTSIDE RECORDS SUMMARY | 2024-09-26 09:28 | XMS_ITS | Encounter Summary ---
Author Organization [facility] Address [address] [address] Care Team Providers Care Sawmill Tally Clerk Name Role Phone Shaw Jorgensen MD Primary Care Provider [phone] Encounter Details Date Type Department Care Team (Late st Contact Info) Description 12/09/2023 Orders Only [facility] BCP OB [address] [facility] [place] [address] Vaishali Villagomez LPN [address] [place], [place] [id number] Social History Tobacco Use Types Packs/Day Years [...] AM EDT Routine [facility] BCP OB [address] [place] [address] Tran Gomez PA [address] [facility] [place] [address] documented as of this encounter Procedures Procedure Name Priority Date/Time Associated Diagnosis Comments PAP SMEAR Routine 12/08/2022 12:00 AM EDT documented in this encounter Results * Pap Smear (12/08/2022 12:00 AM EDT) Swab Cervical swab / Unknown us Anitha Nurse [facility] Bcp Ob LAB CYTOLOGY ORDERABLES Final Result EXTERNAL LAB documented in this encounter Visit Diagnoses Not on filedocumented in this encounter Care Teams Sawmill Tally Clerk Relationship Specialty Start Date End Date Shaw Jorgensen MD [address] [facility] [place] [address] PCP - General Family Medicine 09/03/22 documented as of this encounter
--- OUTSIDE RECORDS SUMMARY | 2024-09-26 09:28 | XMS_ITS | Encounter Summary ---
Author Organization [facility] Address [address] [place] [address] Care Team Providers Care Production Technologist Name Role Phone Shaw Jorgensen MD Primary Care Provider [phone] Encounter Details Date Type Department Care Team (Late st Contact Info) Description 08/05/2023 Clinisync Result Encounter NOMS External Department Unsolicited Tran Perez PA [address] [facility] [place] [address] Social History Tobacco Use Types Packs/Day Years [...] AM EDT Routine [facility] [address] [facility] [address] Tran Perez PA [address] [place] [address] Dr Hernandez [place] [id number] documented as of this encounter Procedures Procedure Name Priority Date/Time Associated Diagnosis Comments US PELVIS W/ TRANSVAGINAL 08/05/2023 9:14 AM EDT documented in this encounter Results * US PELVIS W/ TRANSVAGINAL (08/05/2023 9:14 AM EDT) Anatomical Region Laterality Modality Other 08/05/2023 9:14 AM EDT Narrative 08/05/2023 9:16 AM EDT [address] [address] Ultrasound Report Signed Patient: LOYDA GIBSON MR#: [id number] : 2000 Acct:[id number] Age/Sex: 23 / F ADM Date: 08/05/23 Loc: US Attending Dr: Tran Perez Ordering Physician: Tran Perez Date of Service: 08/05/23 Procedure(s): US pelvis w/ transvaginal Accession Number(s): [id number] cc: Tran Perez; Shaw Jorgensen M.D. [address] [id number] Patient Name: LOYDA GIBSON MRN: [id number] date: 2000 Sex: F Assigned Patient Location: US Current Patient Location: US Accession/Order Number: [id number] Exam Date: 08/05/2023 08:20 Report Date: 08/05/2023 09:14 At the request of: TRAN PEREZ Procedure: US pelvis w/ transvaginal EXAMINATION: US pelvis w/ transvaginal HISTORY: Pain Of Ovary N94.89, Pain In Female R10.2 COMPARISON: 04/15/2023 FINDINGS: Transabdominal and transvaginal images The uterus is normal in size, contour and echotexture measuring 7.7 x 3.4 x 4.7 cm. No focal myometrial mass. The endometrium measures 1.4 cm, correlate with the menstrual cycle. The right ovary is normal measuring 3.7 x 2.0 x 2.0 cm. Normal color and Doppler flow The left is normal measuring 2.3 x 2.8 x 2.2 cm. Normal color Doppler flow No free fluid US/US pelvis w/ transvaginal IMPRESSION: No acute abnormality Electronically authenticated by: NIKO FOREMAN Date: 08/05/2023 09:14 Dictated By: Niko Foreman M.D. Signed By: 08/05/23915 DD/ 3 TD/TT: Assistant Education Director: Procedure Note Radiology, Radiologist, MD - 08/05/2023 The [place] [id number] Ultrasound Report Signed Patient: LOYDA GIBSON CMR#: [id number] : 2000Acct:[id number] Age/Sex: 23 / FADM Date: 08/05/23 Loc: US Attending Dr: Tran Perez Ordering Physician: Tran Perez Date of Service: 08/05/23 Procedure(s): US pelvis w/ transvaginal Accession Number(s): [id number] cc: Tran Perez; Shaw Jorgensen M.D. The [address] [address] Patient Name: LOYDA GIBSON MRN: [id number] date: 2000 Sex: F Assigned Patient Location: US Current Patient Location: US Accession/Order Number: [id number] Exam Date: 08/05/2023 08:20 Report Date: 08/05/2023 09:14 At the request of: TRAN PEREZ Procedure: US pelvis w/ transvaginal EXAMINATION: US pelvis w/ transvaginal HISTORY: Pain Of Ovary N94.89, Pain In Female R10.2 COMPARISON: 04/15/2023 FINDINGS: Transabdominal and transvaginal images The uterus is normal in size, contour and echotexture measuring 7.7 x 3.4x 4.7 cm. No focal myometrial mass. The endometrium measures 1.4 cm, correlate with the menstrual cycle. The right ovary is normal measuring 3.7 x 2.0 x 2.0 cm. Normal color and Doppler flow The left is normal measuring 2.3 x 2.8 x 2.2 cm. Normal color Doppler flow No free fluid US/US pelvis w/ transvaginal IMPRESSION: No acute abnormality Electronically authenticated by: NIKO FOREMAN Date: 08/05/2023 09:14 Dictated By: Niko Foreman M.D. Signed By:08/05/23915 DD/ 3 TD/TT: Assistant Education Director: us Tran [facility] Final Result documented in this encounter Visit Diagnoses Not on filedocumented in this encounter Care Teams Production Technologist Relationship Specialty Start Date End Date Shaw Jorgensen MD [address] [place] [address] PCP - General Family Medicine 09/03/22 documented as of this encounter
--- OUTSIDE RECORDS SUMMARY | 2024-09-26 09:28 | XMS_ITS | Encounter Summary ---
Author Organization [facility] Address [address] [place] [address] Care Team Providers Care Fitter Welder Name Role Phone Shaw Jorgensen MD Primary Care Provider [phone] Encounter Details Date Type Department Care Team (Late st Contact Info) Description 10/23/2022 Abstract [facility] BCP OB [address] [facility] [place] [address] Tran Gomez PA [address] [place] [address] Social History Tobacco Use Types Packs/Day Years Used Date Smoking Tobacco: Never Smokeless Tobacco: Never Alcohol Use Standard Drinks/Week Comments Never 0 (1 standard drink = 0.6 oz pur e alcohol) Comments Unknown Sex and Gender Information Value Date Recorded Sex Assigned at Female 08/27/2022 8:37 AM EDT Legal Sex Female 7:05 PM EDT Gender Identity Female 08/27/2022 8:37 AM EDT Sexual Orientation Straight 08/27/2022 8: 37 AM EDT COVID-19 Exposure Response Date Recorded In the last 10 days, have yo u been in contact with someone who was confirmed or suspected to have Coronavirus/COVID-19? No / Unsure 10/22/2022 1:23 PM EDT documented as of this encounter Plan of Treatment Upcoming Encounters Date Type Department Care Team (Late st Contact Info) Description 09/27/2024 10:30 AM EDT Routine [facility] BCP OB [address] [facility] [place] [address] Tran Gomez PA [address] [place], [place] [phone] documented as of this encounter Visit Diagnoses Not on filedocumented in this encounter Care Teams Fitter Welder Relationship Specialty Start Date End Date Shaw Jorgensen MD [address] [facility] [place] [address] PCP - General Family Medicine 09/03/22 documented as of this encounter
--- OUTSIDE RECORDS SUMMARY | 2024-09-26 09:29 | XMS_ITS | Encounter Summary ---
Author Organization [facility] Address [address] [place] [address] Care Team Providers Care Drawing In Machine Tender Helper Name Role Phone Shaw Jorgensen MD Primary Care Provider [phone] Encounter Details Date Type Department Care Team (Late st Contact Info) Description 04/15/2023 Clinisync Result Encounter N[facility]S External Department Unsolicited Rosalva Welsh, [address] [place] [address] Social History Tobacco Use Types Packs/Day Years [...] EDT Routine [facility] BCP OB [address] [place] [address] Tran Gomez PA [address] [place] [address] Dr Hernandez [place] [phone] (work) documented as of this encounter Procedures Procedure Name Priority Date/Time Associated Diagnosis Comments US PELVIS W/ TRANSVAGINAL 04/15/2023 3:25 PM EST documented in this encounter Results * US PELVIS W/ TRANSVAGINAL (04/15/2023 3:25 PM EST) Anatomical Region Laterality Modality Other 04/15/2023 3:25 PM EST Narrative 04/15/2023 3:28 PM EST [address] [address] Ultrasound Report Signed Patient: LOYDA GIBSON MR#: [id number] : 2000 Acct:[id number] Age/Sex: 23 / F ADM Date: 04/15/23 Loc: US Attending Dr: Rosalva Welsh D.O. Ordering Physician: Rosalva Welsh D.O. Date of Service: 04/15/23 Procedure(s): US pelvis w/ transvaginal Accession Number(s): [id number] cc: Rosalva Welsh D.O.; Shaw Jorgensen M.D. [address] [address] Patient Name: LOYDA GIBSON MRN: [id number] date: 2000 Sex: F Assigned Patient Location: US Current Patient Location: US Accession/Order Number: [id number] Exam Date: 04/15/2023 14:09 Report Date: 04/15/2023 15:25 At the request of: ROSALVA WELSH Procedure: US pelvis w/ transvaginal EXAM: Pelvic ultrasound HISTORY: . Pelvic Pain In Female R10.2 . COMPARISON: None. TECHNIQUE: Transabdominal and transvaginal scanning was performed FINDINGS: The uterus is anteverted and measures 7.6 x 4.9 x 3.4 cm. Endometrial complex measures 10 mm. Right ovary measures 2.8 x 2.3 x 1.9 cm. Color-flow is noted. Resistive indexes 0.5. Follicles are noted. Left ovary measures 3.8 x 2.5 x 2.7 cm. Color-flow is noted. Follicles are noted. There is a 1.4 x 0.9 cm dominant follicle/simple cyst within the left ovary. No fluid is noted in the cul-de-sac. US/US pelvis w/ transvaginal IMPRESSION: 1. Normal-appearing uterus and endometrial complex. 2. Normal right ovary. 3. 1.4 x 0.9 cm dominant follicle/simple cyst within the left ovary. Electronically authenticated by: NIKO RENO Date: 04/15/2023 15:25 Dictated By: Niko Reno M.D. Signed By: 04/15/23 1528 DD/ 1525 TD/TT: Crayon Grader: Procedure Note Radiology, Radiologist, MD - 04/15/2023 [place] [address] Ultrasound Report Signed Patient: LOYDA GIBSON CMR#: [id number] : 2000Acct:[id number] Age/Sex: FADM Date: 04/15/23 Loc: US Attending Dr: Rosalva Welsh D.O. Ordering Physician: Rosalva Welsh D.O. Date of Service: 04/15/23 Procedure(s): US pelvis w/ transvaginal Accession Number(s): [id number] cc: Rosalva Welsh D.O.; Shaw Jorgensen M.D. The [address] [id number] Patient Name: LOYDA GIBSON MRN: [id number] date: 2000 Sex: F Assigned Patient Location: US Current Patient Location: US Accession/Order Number: [id number] Exam Date: 04/15/2023 14:09 Report Date: 04/15/2023 15:25 At the request of: ROSALVA WELSH Procedure: US pelvis w/ transvaginal EXAM: Pelvic ultrasound HISTORY: . Pelvic Pain In Female R10.2 . COMPARISON: None. TECHNIQUE: Transabdominal and transvaginal scanning was performed FINDINGS: The uterus is anteverted and measures 7.6 x 4.9 x 3.4 cm. Endometrial complex measures 10 mm. Right ovary measures 2.8 x 2.3 x 1.9 cm. Color-flow is noted. Resistive indexes 0.5. Follicles are noted. Left ovary measures 3.8 x 2.5 x 2.7 cm. Color-flow is noted. Follicles are noted. There is a 1.4 x 0.9 cm dominant follicle/simple cyst within theleft ovary. No fluid is noted in the cul-de-sac. US/US pelvis w/ transvaginal IMPRESSION: 1. Normal-appearing uterus and endometrial complex. 2. Normal right ovary. 3. 1.4 x 0.9 cm dominant follicle/simple cyst within the left ovary. Electronically authenticated by: NIKO RENO Date: 04/15/2023 15:25 Dictated By: Niko Reno M.D. Signed By:04/15/23 1528 DD/ 1525 TD/TT: Crayon Grader: us Rosalva Anitha DO [facility] Final Result documented in this encounter Visit Diagnoses Not on filedocumented in this encounter Care Teams Drawing In Machine Tender Helper Relationship Specialty Start Date End Date Shaw Jorgensen MD [address] [place] [address] PCP - General Family Medicine 09/03/22 documented as of this encounter
--- OUTSIDE RECORDS SUMMARY | 2024-09-26 09:29 | XMS_ITS | Encounter Summary ---
Author Organization [facility] Address [address] [place] [address] Care Team Providers Care Motor Coach Supervisor Name Role Phone Shaw Jorgensen MD Primary Care Provider [phone] Encounter Details Date Type Department Care Team (Late st Contact Info) Description 08/15/2024 Abstract [facility] BCP OB [address] [facility] [place] [address] Aden Welsh, DO [address] [facility] [place] [address] Social History Tobacco Use Types Packs/Day Years [...] AM EDT Routine [facility] BCP OB [address] [facility] [place] [address] Tran Gomez PA [address] [facility] [address] [place], [place] [address] documented as of this encounter Visit Diagnoses Not on filedocumented in this encounter Care Teams Motor Coach Supervisor Relationship Specialty Start Date End Date Shaw Jorgensen MD [address] [facility] [place] [address] PCP - General Family Medicine 09/03/22 documented as of this encounter
--- OUTSIDE RECORDS SUMMARY | 2024-09-26 09:29 | XMS_ITS | Encounter Summary ---
Author Organization [facility] Address [address] [place] [address] Care Team Providers Care Senior Electrical Designer Name Role Phone Shaw Jorgensen MD Primary Care Provider [phone] Encounter Details Date Type Department Care Team (Late st Contact Info) Description 08/30/2024 Abstract [facility] BCP OB [address] [facility] [place] [address] Aden Welsh, DO [address] [facility] [place] [address] Social History Tobacco Use Types Packs/Day Years [...] Routine [facility] BCP OB [address] [facility] [place] [address] Tran Gomez PA [address] [facility] [address] [place], [place] [address] documented as of this encounter Visit Diagnoses Not on filedocumented in this encounter Care Teams Senior Electrical Designer Relationship Specialty Start Date End Date Shaw Jorgensen MD [address] [place] [address] PCP - General Family Medicine 09/03/22 documented as of this encounter
--- NOTE | 2024-09-26 09:30 | US_ITS ---
The [address] [address] Patient Name: DONALD ADAME MRN: [id number] date: 2000 Sex: F Assigned Patient Location: US Current Patient Location: US Accession/Order Number: [id number] Exam Date: 09/26/2024 10:11 Report Date: 09/26/2024 10:13 At the request of: ROSALVA GOMEZ DO Procedure: US OB incomplete anatomy ULTRASOUND OB INCOMPLETE ANATOMY COMPARISON: None CLINICAL DATA: Incomplete evaluation of the ventricular outflow tracts There is a single live intrauterine gestation in cephalic presentation. There is cardiac and somatic activity with heart rate of 163 bpm. The amniotic fluid volume is subjectively normal. A four-chamber heart is visualized. An echogenic focus is visualized within the left ventricle which is a normal variant. The right and left ventricular outflow tracts were successfully visualized. US/US OB incomplete anatomy IMPRESSION: VISUALIZATION OF THE VENTRICULAR OUTFLOW TRACTS. Impression dictated by: Gina Boyd M.D. 09/26/2024 10:13 AM Dictation Location: [place] [address] Electronically authenticated by: [id number] Y Date: 09/26/2024 10:13
--- OUTSIDE RECORDS SUMMARY | 2024-09-26 09:50 | XMS_ITS | CCD ---
Author Organization [facility] Care Team Providers Care Service Desk Analyst Name Role Phone ANITHA ., DR BLACKWELL [...] Unavailable ANITHA ., DR BLACKWELL Consulting Unavailable KHLOE GARCIA Admitting Unavailable KHLOE GARCIA Attending Unavailable JAIR ., DR HAY Primary Care Unavailable KHLOE GARCIA Consulting Unavailable ANITHA ., DR BLACKWELL Admitting Unavailable ANITHA ., DR BLACKWELL Attending Unavailable CHIY ., DR HAY Primary Care Unavailable AHSAN, DR NIKO Selby Consulting Unavailable Shaw Jorgensen MD Primary Care Provider [phone] Shaw Jorgensen Primary Care Physician [phone] Israel POND Attending Unavailable Shaw Jorgensen Referring Unavailable Israel POND Attending Unavailable Anatoly PARK Attending Unavailable Shaw Jorgensen MD Primary Care Provider ROSALVA WELSH Attending Unavailable ANITHA, ROSALVA Attending Unavailable Allergies Allergy Classification Reported Allergen(s) Allergy Type Date of Onset Reaction(s) Facility (1 source) No Known Medication Allergies; Translations: [No Known Medication Allergies] Propensity to adverse reactions (disorder) [facility] Repository Medications Current Medications Medication Drug Class(es) Dates Sig (Normalized) Sig (Original) cetirizine hydrochloride 10 mg oral tablet (10 sources) Histamine-1 Receptor Antagonist Start: 12-25-2023 take 1 tablet by mouth once daily cetirizine 10 mg Tab 10 mg = 1 tab(s), Oral, Daily, Refills(s) 0 Start Date: 12/25/23 Status: Ordered DULoxetine 60 mg delayed release oral capsule (8 sources) Serotonin and Norepinephrine Reuptake Inhibitor take [...] Status: Ordered fluocinonide 0.5 mg/ml topical solution (4 sources) Corticosteroid Start: 04-22-2023 End: 08-05-2024 fluocinonide (Lidex) 0.05 % external solution Indications: Other seborrheic dermatitis Apply to affected areas on the scalp, up to twice a day when flared, 30 day supply 60 mL 11 04/22/2023 08/05/2024 Discontinued hyoscyamine sulfate 0.125 mg sublingual tablet (1 source) Start: 04-06-2024 take 1 tablet under the tongue every four hours as needed for pain hyoscyamine 0.125 mg sublingual Tab 0.125 mg = 1 tab(s), SubLingual, q4hr, PRN abdominal pain, Refills(s) 0 Start Date: 04/06/24 Status: Ordered ibuprofen 800 mg oral tablet (4 sources) Nonsteroidal Anti-inflammatory Drug Start: 07-01-2022 End: 08-05-2024 ibuprofen 800 MG tablet TAKE 1 TABLET BY MOUTH EVERY 6 TO 8 HOURS NEEDED 07/01/2022 08/05/2024 Discontinued ketoconazole 20 mg/ml medicated shampoo (1 source) Azole Antifungal Start: 04-23-2023 End: 05-23-2023 ketoconazole (NIZOral) 2 % shampoo Indications: Other seborrheic dermatitis Apply topically 2 (two) times a week Lather on scalp 2x a week, leave on 5 min before rinsing 120 mL 11 04/23/2023 05/23/2023 Active magnesium oxide 400 mg oral tablet (5 sources) Start: 08-05-2024 End: 09-04-2024 take 1 tablet by mouth once daily magnesium oxide (Mag-Ox) 400 MG tablet Indications: , unspecified gestational age Take 1 tablet (400 mg) by mouth Daily 30 tablet 6 08/05/2024 09/04/2024 Active pantoprazole 40 mg delayed release oral tablet (1 source) Proton Pump Inhibitor Start: 04-06-2024 take 1 tablet by mouth once daily Pantoprazole [address] Tab 40 mg = 1 tab(s), Oral, Daily, Refills(s) 0 Start Date: 04/06/24 Status: Ordered Vit-Fe Fumarate-FA ( VITAMIN PO) (5 sources) Vit-Fe Fumarate-FA ( VITAMIN PO) Take by mouth Active QUEtiapine 50 mg oral tablet (7 sources) Atypical Antipsychotic Start: 12-25-2023 take 1 tablet by mouth once daily quetiapine 50 mg oral tablet 50 mg = 1 tab(s), Oral, Daily, Refills(s) 0 Start Date: 12/25/23 Status: Ordered Start: 12-25-2023 take 3 tablets by mo uth once daily quetiapine 50 mg oral tablet 150 mg = 3 tab(s), Oral, Daily, Refills(s) 0 Start Date: 12/25/23 Status: Ordered Start: 03-08-2023 End: 08-05-2024 take 2 tablets by mouth in the morning QUEtiapine (SEROquel) 50 MG tablet Take 100 mg by mouth in the morning. 03/08/2023 08/05/2024 Discontinued Start: 03-15-2022 End: 05-05-2023 QUEtiapine (SEROquel) 25 MG tablet Ovsvpftlw-Ofpwgptok-Lhifobmj d (Myfembree) 40-1-0.5 MG tablet (2 sources) Start: 09-07-2023 take 1 tablet by mouth once daily Xsaejmyit-Pdnxebgns-Avmxbhgwm (Myfembree) 40-1-0.5 MG tablet Indications: Endometriosis Take 1 tablet by mouth Daily 30 tablet 6 09/07/2023 Active rOPINIRole 5 mg oral tablet (5 sources) Nonerg ot Dopami ne Agonis t Start: 12-25-2023 End: 08-05-2024 take 1 tablet by mouth at bedtime [...] without obstruction] Onset: 12-31-2023 Episodic Menstrual disorders (3 sources) Excessive and frequent menstruation with irregular cycle; Translations: [Dysmenorrhea, unspecified] Onset: 11-04-2021 08-04-2024 Chronic Mood disorders (2 sources) Depressive disorder [...] but less than 30 12-31-2023 Episodic Other and delivery including normal (4 sources) ; Translations: [Encounter for supervision of normal , unspecified, unspecified trimester] 08-05-2024 Episodic Other screening for suspected conditions (not mental disorders or infectious disease) (1 source) Patient encounter status; Translations: [Encounter for other specified screening] 08-05-2024 Episodic Other skin disorders (2 sources) Alopecia 12-25-2023 Episodic Other upper respiratory disease (2 sources) Seasonal allergic rhinitis 12-25-2023 Chronic Residual codes; unclassified (2 sources) Insomnia 12-25-2023 Episodic Residual codes; unclassified (2 sources) Gestation period, 20 weeks; Translations: [20 weeks gestation of ] 08-29-2024 Episodic Unclassified (1 source) CONTACT W/AND (SUSP) EXPOS COVID-19; Translations: [CONTACT W/AND (SUSP) EXPOS COVID-19] Onset: 10-29-2021 Past or Other Problems Problem Classification Problem Date Documented Da te Episodic/Chronic Abdominal pain (12 sources) Pelvic and perineal pain; Translations: [Pain in female pelvis] Onset: 10-25-2021 Episodic Other female genital disorders (4 sources) Other specified conditions associated with female genital organs and menstrual cycle; Translations: [OTH SPEC COND FE GEN ORG MENST CYCL] Onset: 02-04-2022 Episodic Results Test Name Value Interpretation Reference Range Facility US OB 14+ WEEKS ANATOMY SCAN on 08-29-2024 US OB 14+ WEEKS ANATOMY SCAN EXAM: US OB 14+ WEEKS ANATOMY SCAN [...] II, MD, PHD at 30-Aug-2024 11:32:36 PM [facility] Normal Not Available Comment on above: Order Comment: US OB ANATOMY SINGLE W US OB CERVICAL LENGTH Estimated Date of Delivery: 01/10/25 Gestational Age as of 08/05/2024: 17w3d Urinalysis macro (dipstick) panel (U)on 08-29-2024 Bilirubin, UA Negative Negative - 4(70) +++ mg/dL [facility] Blood, UA Negative Negative - 50 Ralf/mcL [facility] Clarity, UA Clear [facility] Color, UA Yellow [facility] Glucose, UA Negative Negative - 2000(110) ++++ mg/dL [facility] Interpretation and review of laboratory results Normal [facility] Ketones, UA Negative Negative - 160(16) ++++ mg/dL [facility] Leukocytes, UA Negative Negative - 500+++ Joce/mcL [facility] Nitrite, UA Negative Negative - Positive [facility] pH, UA 7 5 - 9 [facility] Protein, UA Negative Negative - 2000(20) ++++ mg/dL [facility] Spec Grav, UA 1.01 1 - 1.03 [facility] Urobilinogen, UA 0.2 0.2 - 12 mg/dL [facility] DRUG SCREEN RAPID (URINE )on 08-08-2024 AMPHETAMINE SCREEN URINE Negative NEGATIVE [facility] BARBITURATES SCREEN URINE Negative NEGATIVE [facility] BENZODIAZEPINES SCREEN URINE Negative NEGATIVE [facility] BUPRENORPHINE SCREEN URINE Negative NEGATIVE [facility] Comment on above: DRUG CLASS TEST SYST EM CUT-OFF CONCENTRATIONS ARE FOLLOWS: AMP (Amphetamine): 500 ng/mL BAR (Barbiturates): 200 ng/mL BZO (Benzodiazepines): 150 ng/mL BUP (Buprenorphine): 10 ng/mL MILO (Cocaine): 150 ng/mL mAMP (Methamphetamine): 500 ng/mL MTD (Methadone): 200 ng/mL OPI (Opiates): 100 ng/mL OXY (Oxycodone): 100 ng/mL PCP (Phencyclidine): 25 ng/mL THC (Cannabinoids): 50 ng/mL TCA (Trycyclic Antidepressants): 300 ng/mL CANNABINOID SCREEN URINE Negative NEGATIVE [facility] COCAINE SCREEN URINE Negative NEGATIVE [facility] METHADONE SCREEN URINE Negative NEGATIVE [facility] METHAMPHETAMINES SCREEN URINE Negative NEGATIVE [facility] OPIATE SCREEN URINE Negative NEGATIVE [facility] OXYCODONE SCREEN URINE Negative NEGATIVE [facility] PHENCYCLIDINE SCREEN URINE Negative NEGATIVE [facility] TRICYCLIC ANTIDEPRESSANT URINE Negative NEGATIVE [facility] ALL CBC WITH AUTO DIFFon BASOPHILS ABSOLUTE AUTO 0 [facility] Basophils/100 WBC (Bld) 0.5 % 0.2 - 2.0 % [facility] Eosinophils/100 WBC (Bld) 2 % 0.9 - 7.0 % [facility] Erythrocyte distribution width (RBC) [Ratio] 13.8 % 11.0 - 15.0 % [facility] Hematocrit (Bld) [Volume fraction] 35.4 % Low 36.0 - 48.0 % [facility] Hemoglobin (Bld) [Mass/Vol] 12.3 g/dL 12.0 - 16.0 g/dL [facility] IMMATURE GRANULOCYTES ABS AUTO 0.03 [facility] Immature granulocytes/100 WBC (Bld) 0.4 % 0.0 - 0.5 % [facility] Interpretation and review of laboratory results Abnormal [facility] LYMPHOCYTES ABSOLUTE AUTO 1.3 [facility] Lymphocytes/100 WBC (Bld) 15.5 % Low 20.5 - 60.0 % [facility] MCH (RBC) [Entitic mass] 31.6 pg 26.7 - 34.0 pg [facility] MCHC (RBC) [Mass/Vol] 34.7 g/dL 29.9 - 35.2 g/dL [facility] MCV (RBC) [Entitic vol] 91 fL 81.0 - 99.0 fL [facility] MONOCYTES ABSOLUTE AUTO 0.5 [facility] Monocytes/100 WBC (Bld) 5.9 % 1.7 - 12.0 % [facility] NEUTROPHILS ABSOLUTE AUTO 6.1 [facility] Neutrophils/100 WBC (Bld) 75.7 % High 43.0 - 75.0 % [facility] Platelet mean volume (Bld) [Entitic vol] 9.5 fL 9.5 - 13.5 fL [facility] EO # 0.2 [facility] PLT 307 [facility] RBC 3.89 Low [facility] WBC 8.1 [facility] US OB LIMITED 1+ FETUSESon 0 08-05-2024 US OB LIMITED 1+ FETUSES EXAM: US OB LIMITED 1+ FETUSES HISTORY: [...] II, MD, PHD at 07-Aug-2024 08:22:24 PM [facility] Normal Not Available Comment on above: Order Comment: US OB TRANSVAGINAL No LMP recorded. General Surgery Office/Clini c Noteon 04-11-2024 General [...] Immunizations Vaccine Date Status Comments SARS-CoV-2 (COVID-19) [id number] 03/10/2022 Recorded SARS-CoV-2 (COVID-19) mRNA BNT-162b2 vax 09/07/2020 Recorded 2023-12-25: TPVAL SARS-CoV-2 (COVID-19) mRNA BNT-162b2 vax 08/17/2020 Recorded 2023-12-25: TPVAL Normal [facility] Comment on above: Result Comment: Elec tronically Signed By: DEJAH ARDON, Israel Gonzalez\.br\Date and Time Signed: 04/11/24 16:18 EST Ambulatory Visit Summaryon 1 Ambulatory Visit Summary Ambulatory Visit Summary LOYDA ADAME :2000 Visit Date:12/31/2023 Ambulatory Visit Instructions Your Care Team Attending Physician - Israel POND MD Primary Care Physician - Shaw Jorgensen MD [...] for choosing us for your care. Normal [facility] QUANTIFERON TB GOLD PLUSon 0 07-17-2022 QuantiFERON Criteria Comment Normal [facility] Comment on above: Result Comment: Yon [...] test. Performed By: #### Q NTTB #### [facility] [address] [place] [address] Dr. Elie Milan QuantiFERON Incubation Incubation performed. Normal [facility] Comment on above: Performed By: #### Q NTTB #### [facility] [address] [place] [address] Dr. Elie Milan QuantiFERON Mitogen Value >10.00 [facility] Comment on above: Performed By: #### Q NTTB #### [facility] [address] [place] [address] Dr. Elie Milan QuantiFERON Nil Value 0.05 IU/mL [facility] Comment on above: Performed By: #### Q NTTB #### [facility] [address] [place] [address] Dr. Elie Milan QuantiFERON TB1 Ag Value 0.06 IU/mL [facility] Comment on above: Performed By: #### Q NTTB #### [facility] [address] [place] [address] Dr. Elie Milan QuantiFERON TB2 Ag Value 0.07 IU/mL [facility] Comment on above: Performed By: #### Q NTTB #### [facility] [address] [place] [address] Dr. Elie Milan QuantiFERON-TB Gold Plus Negative Normal Negative [facility] Comment on above: Result Comment: No r esponse to M tuberculosis antigens detected. Infection with M tuberculosis is unlikely, but high risk individuals should be considered for additional testing (ATS/IDSA/CDC Clinical Practice Guidelines, 2017). The reference range is an Antigen minus Nil result of <0.35 IU/mL. Chemiluminescence immunoassay methodology Performed By: #### Q NTTB #### [facility] [address] [place] [address] Dr. Elie Milan HEPATITIS B SURFACE ANTIBODY , QUANTon 07-16-2022 Hepatitis B Surf AB Quant <3.1 Critically low Immunity>9.[address] [facility] Comment on above: Result Comment: Stat us of Immunity Anti-HBs Level Inconsistent with Immunity 0.0 - 9.9 Consistent with Immunity >9.9 Performed By: #### H EPBSRF #### [facility] [address] [place] [address] Dr. Elie Milan MMR IMMUNITYon 07-16-2022 Mumps Abs, IgG 261.0 AU/mL Normal Immune >10.9 [facility] Comment on above: Result Comment: Nega tive <9.0 Equivocal 9.0 - 10.9 Positive >10.9 A positive result generally indicates past exposure to Mumps virus or previous vaccination. Performed By: #### M MRIMMU #### [facility] [address] [place] [address] Dr. Elie Milan Rubella Antibodies, IgG 3.97 index Normal Immune >0.[address] [facility] Comment on above: Result Comment: Non- immune <0.90 Equivocal 0.90 - 0.99 Immune >0.99 Performed By: #### M MRIMMU #### [facility] [address] [place] [address] Dr. Elie Milan Rubeola Ab, IgG >300.0 Normal Immune >16.4 [facility] Comment on above: Result Comment: Nega tive <13.5 Equivocal 13.5 - 16.4 Positive >16.4 Presence of antibodies to Rubeola is presumptive evidence of immunity except when acute infection is suspected. Performed By: #### M MRIMMU #### [facility] [address] [place] [address] Dr. Elie Milan VARICELLA IGG ABon 3 Varicella Zoster IgG 1549 index Normal Immune >165 [facility] Comment on above: Result Comment: Nega tive <135 Equivocal 135 - 165 Positive >165 A positive result generally indicates exposure to the pathogen or administration of specific immunoglobulins, but it is not indication of active infection or stage of disease. Performed By: #### V ARCEL #### [facility] [address] [place], [place] [id number] Dr. Elie Milan US PELVIS AND TRANSVAGon [...] NIKO FOREMAN Date: 2022-02-04 20:13 Normal [facility] HCG-BETA SUBUNIT QUANTon hCG,Beta Subunit,Qnt,Serum <1 Normal [facility] Comment on above: Result Comment: Fema le (Non-) 0 - 5 (Postmenopausal) 0 - 8 . Female () Weeks of Gestation 3 6 - 71 4 10 - 750 5 012 - 2038 6 748 - 79057 7 7711 -618271 8 00143 -322921 9 04043 -156935 10 74924 -104123 12 36086 -915774 14 52280 - 92906 15 35573 - 72095 16 4628 - 31557 17 5443 - 53738 18 5537 - 09075 Tanesha ECLIA methodology Performed By: #### H CGSUB #### [facility] [address] [place] [address] Dr. Elie Milan CBC AUTO DIFFon 10-23-2021 BASO # 0.1 103/ul Normal 0.0-0.1 [facility] Comment on above: Performed By: #### C BC #### [facility] [address] [place] [address] Dr. Elie Milan Basophils/100 WBC (Bld) 1.1 % Normal 0.2-2.0 [facility] Comment on above: Performed By: #### C BC #### [facility] [address] [place] [address] Dr. Elie Milan EO # 0.3 103/ul Normal 0.0-0.7 [facility] Comment on above: Performed By: #### C BC #### [facility] [address] [place] [address] Dr. Elie Milan Eosinophils/100 WBC (Bld) 4.6 % Normal 0.9-7.0 [facility] Comment on above: Performed By: #### C BC #### [facility] [address] [place] [address] Dr. Elie Milan Erythrocyte distribution width (RBC) [Ratio] 11.9 % Normal 11.0-15.0 [facility] Comment on above: Performed By: #### C BC #### [facility] [address] [place] [address] Dr. Elie Milan Hematocrit (Bld) [Volume fraction] 41.0 % Normal 36.0-48.0 [facility] Comment on above: Performed By: #### C BC #### [facility] [address] [place] [address] Dr. Elie Milan Hemoglobin (Bld) [Mass/Vol] 14.0 g/dL Normal 12.0-16.0 [facility] Comment on above: Performed By: #### C BC #### [facility] [address] [place] [address] Dr. Elie Milan IG # 0.02 10e3/ul Normal 0.00-0.03 [facility] Comment on above: Performed By: #### C BC #### [facility] [address] [place] [address] Dr. Elie Milan IG % 0.3 % Normal 0.0-0.5 [facility] Comment on above: Performed By: #### C BC #### [facility] [address] [place] [address] Dr. Elie Milan LYMPH # 1.3 103/ul Normal 1.2-3.8 [facility] Comment on above: Performed By: #### C BC #### [facility] [address] [place] [address] Dr. Elie Milan Lymphocytes/100 WBC (Bld) 17.9 % Critically low 20.5-60.0 [facility] Comment on above: Performed By: #### C BC #### [facility] [address] [place] [address] Dr. Elie Milan MANUAL DIFF REQ NO Normal [facility] Comment on above: Performed By: #### C BC #### [facility] [address] [place] [address] Dr. Elie Milan MCH (RBC) [Entitic mass] 30.9 pg Normal 26.7-34.0 [facility] Comment on above: Performed By: #### C BC #### [facility] [address] [place] [address] Dr. Elie Milan MCHC (RBC) [Mass/Vol] 34.1 g/dL Normal 29.9-35.2 [facility] Comment on above: Performed By: #### C BC #### [facility] [address] [place] [address] Dr. Elie Milan MCV (RBC) [Entitic vol] 90.5 fL Normal 81.0-99.0 [facility] Comment on above: Performed By: #### C BC #### [facility] [address] [place] [address] Dr. Elie Milan MONO # 0.5 103/ul Normal 0.3-0.8 [facility] Comment on above: Performed By: #### C BC #### [facility] [address] [place] [address] Dr. Elie Milan Monocytes/100 WBC (Bld) 7.3 % Normal 1.7-12.0 [facility] Comment on above: Performed By: #### C BC #### [facility] [address] [place] [address] Dr. Elie Milan NEUT # 4.8 103/ul Normal 1.4-6.5 [facility] Comment on above: Performed By: #### C BC #### [facility] [address] [place] [address] Dr. Elie Milan Neutrophils/100 WBC (Bld) 68.8 % Normal 43.0-75.0 [facility] Comment on above: Performed By: #### C BC #### [facility] [address] [place] [address] Dr. Elie Milan Platelet mean volume (Bld) [Entitic vol] 9.9 fL Normal 9.5-13.5 [facility] Comment on above: Performed By: #### C BC #### [facility] [address] [place] [address] Dr. Elie Milan PLT 223 103/ul Normal 150-450 [facility] Comment on above: Performed By: #### C BC #### [facility] [address] [place] [address] Dr. Elie Milan RBC 4.53 106/ul Normal 4.20-5.[address] [facility] Comment on above: Performed By: #### C BC #### [facility] [address] [place] [address] Dr. Elie Milan WBC 7.0 103/ul Normal 4.0-11.[address] [facility] Comment on above: Performed By: #### C BC #### [facility] [address] [place] [address] Dr. Elie Milan HCG-BETA SUBUNIT QUANTon hCG,Beta Subunit,Qnt,Serum <1 Normal [facility] Comment on above: Result Comment: Fema le (Non-) 0 - 5 (Postmenopausal) 0 - 8 . Female () Weeks of Gestation 3 6 - 71 4 10 - 750 5 720 - 1105 6 477 - 05446 7 6843 -415952 8 44092 -588645 9 14589 -003044 10 77610 -355657 12 25782 -355207 14 95586 - 05218 15 04854 - 73976 16 1279 - 99253 17 1737 - 20450 18 4183 - 63193 Tanesha ECLIA methodology Performed By: #### H CGSUB #### [facility] [address] [place] [address] Dr. Elie Milan US PELVIS TRANSVAGon 022 US PELVIS TRANSVAG EXAMINATION: US PELVIS TRANSVAG HISTORY: Pelvic and perineal pain COMPARISON: [...] by: NIKO FOREMAN Date: 2021-10-08 16:31 Normal [facility] CNOVSPon 05-17-2019 CNOVSP Visit (SP) Office ([place]) LOYDA ADAME ([id number]) 2000 F Date Time Provider Department 05/17/19 10:45 AM FORD MORGAN) IFTIKHAR During your visit today, we recorded the following information about you: Temperature Pulse Respiration Blood pressure 98.2 degrees 86/minute 18/minute 121/71 Weight Height 56.8 kg 1.632 m Ford Morgan MD 05/17/2019 2:07 PM Signed PATIENT NAME: Loyda Adame CLINIC NO.: [id number] ATTENDING PHYSICIAN: Ford Morgan MD DATE OF SERVICE: May 17, 2019 This document has been created with the use of voice recognition technology. It may contain inaccuracies, misspellings, inaccurate syntax or inappropriate word context that escaped review. Dear Dr. Ford Morgan MD [address] [place] [address] here is an update on a follow [...] do not hesitate to contact me at [phone]. Ford Morgan MD Hematology/Medical Oncology [facility] CC: Shaw Jorgensen Referring Provider: FORD MORGAN) [[id number]] Allergies As of Date: 05/17/2019 (No Known [...] by FORD MORGAN MD on 05/17/19 [facility] PROGRESSon 05-17-2019 PROGRESS HNO ID: [id number] Author: Ford Morgan Service: ? Author Type: Physician Type: Progress Notes Filed: 05/17/2019 2:07 PM Note Text: PATIENT NAME: Loyda Adame [facility] NO.: [id number] ATTENDING PHYSICIAN: Ford Morgan MD DATE OF SERVICE: May 17, 2019 This document has been created with the use of voice recognition technology. It may contain inaccuracies, misspellings, inaccurate syntax or inappropriate word context that escaped review. Dear Dr. Ford Morgan MD [address] [place] [address] here is an update on a follow [...] do not hesitate to contact me at [phone]. Ford Morgan MD Hematology/Medical Oncology [facility] CC: Shaw Jorgensen Normal [facility] APTTon 05-10-2019 aPTT Coag (Bld) [Time] 27.1 s Normal 23.0-32.4 [facility] Comment on above: Result Comment: Unfr [...] laboratory APTT reagent in use throughout the [facility]. Performed By: #### P RSCLT, PTT, PT, PRCFUN #### [facility] [address] [place], [place] [address] Protein C Functionalon 05-10 Protein [Mass/Vol] 89 % Normal 76-147 [facility] Comment on above: Performed By: #### P RSCLT, PTT, PT, PRCFUN #### [facility] [address] [place], [place] [address] Protein S Clottableon 2019 Protein S Clottable 58 % Low 59-131 [facility] Comment on above: Result Comment: Resu [...] #### P RSCLT, PTT, PT, PRCFUN #### [facility] [address] [id number] Protimeon 05-10-2019 PT Coag (PPP) [Time] 10.2 s Normal 9.7-13.0 [facility] Comment on above: Performed By: #### P RSCLT, PTT, PT, PRCFUN #### [facility] [address] [place], [place] [address] PT Coag (PPP) [Time] 0.9 s Normal 0.9-1.3 [facility] Comment on above: Result Comment: Maria D min K Antagonist (VKA) Therapeutic Range: INR 2 to 3 (Target INR of 2.5) Note: For patients treated with VKA drugs, such as warfarin, the [employer] 2012 Guideline recommends [...] 2.5 to 3.5 (target INR of 3). Guyatt GH, et al. Chest 2012, 141:7S-47S Deo RA, et al. JAC 2017, 70: 252-289 Performed By: #### P RSCLT, PTT, PT, PRCFUN #### [facility] [address] [place], [place] [address] CNOVSPon 04-12-2019 CNOVSP Visit (SP) Office ([place]) LOYDA ADAME ([id number]) 2000 F Date Time Provider Department 04/12/19 4:15 PM FORD MORGAN) HEMASA During your visit today, we recorded the following information about you: Temperature Pulse Respiration Blood pressure 97.8 degrees 90/minute 18/minute 119/74 Weight Height 56.7 kg 1.632 m Ford Morgan MD 04/12/2019 4:48 PM Signed PATIENT NAME: Loyda Adame CLINIC NO.: [id number] ATTENDING PHYSICIAN: Ford Morgan MD DATE OF [...] Ford Morgan M.D. 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] Order(s):ACTIVATED PTT [SQPTT] Order #: [id number] FUTURE PROTHROMBIN TIME/PT [SQPT] Order #: [id number] FUTURE TUBES - DRAW EXTRA [SQXTUBE] Order #: [id number] FUTURE PROTEIN C FUNCT [SQPRCFUN] Order #: [id number] FUTURE PROTEIN S CLOTTABLE [SQPRSCLT] Order #: [id number] FUTURE Follow-up and Disposition History Recorded Prescriptions as of 04/12/2019 Sig: NORGESTIMATE 0.25 MG-ETHINYL * Take 1 tablet by mouth once d* Problem List As Of Date: 04/12/2019 (None) Encounter Status:Closed by FORD MORGAN MD on 04/12/19 [facility] PROGRESSon 04-12-2019 PROGRESS HNO ID: [id number] Author: Ford Morgan Service: ? Author Type: Physician Type: Progress Notes Filed: 04/12/2019 4:48 PM Note Text: PATIENT NAME: Loyda Adame [facility] NO.: [id number] ATTENDING PHYSICIAN: Ford Morgan MD DATE OF SERVICE: April 12, 2019 This document has been created with the use of voice recognition technology. It may contain inaccuracies, misspellings, inaccurate syntax or inappropriate word context that escaped review. Dear Dr. Rosalva Welsh DO thank you for referring Miss Loyda [...] me to participate in Miss Loyda Adame [facility], if there are any questions or concerns please do not hesitate to contact me at the number below. Ford Morgan M.D. Hematology/Medical Oncology [facility] [phone] CC: Normal [facility] Vital Signs Date Time Vital Sign Value Performing Clinician Facility 08-29-2024 14:46-0400 Body mass index (BMI) [Ratio] 26.21 kg/m2 Rosalva Anitha DO Work Phone: [facility] 08-29-2024 14:46-0400 Body weight 71.44 kg Rosalva Anitha DO Work Phone: [facility] 08-29-2024 14:46-0400 Diastolic blood pressure 72 mm[Hg] Rosalva Anitha DO Work Phone: [facility] 08-29-2024 14:46-0400 Systolic blood pressure 114 mm[Hg] Rosalva Anitha DO Work Phone: [facility] 04-11-2024 13:50-0500 Blood Pressure Location [place] [facility] [facility] [place] 04-11-2024 13:50-0500 Diastolic blood pressure 74 mm[Hg] [place] [facility] [facility] [place] 04-11-2024 13:50-0500 Heart rate 87 /min [place] N[place] [facility] [place] 04-11-2024 13:50-0500 Respiratory rate 16 /min [place] NILL [facility] General [facility] [place] 04-11-2024 13:50-0500 Systolic blood pressure 106 mm[Hg] [place] [facility] 12-31-2023 08:48-0400 Blood Pressure Location [place] [facility] 12-31-2023 08:48-0400 Diastolic blood pressure 87 mm[Hg] [place] [facility] 12-31-2023 08:48-0400 Heart rate 81 /min [place] [facility] 12-31-2023 08:48-0400 Respiratory rate 16 /min [place] [facility] 12-31-2023 08:48-0400 Systolic blood pressure 120 mm[Hg] [place] [facility] Encounters Encounter Date Encounter Type Care Provider Facility Start: 08-29-2024 End: 08-29-2024 Office outpatient visit 15 minutes Rosalva Anitha DO Work Phone: [facility] Comment on above: Second trimester pre gnancy; 20 weeks gestation of Start: 08-29-2024 End: 08-29-2024 ambulatory ROSALVA ANITHA Not Available Start: 08-29-2024 End: 08-29-2024 ambulatory ROSALVA ANITHA Not Available Start: 08-08-2024 End: 08-08-2024 Clinisync Result Encounter Rosalva Anitha DO Work Phone: [facility] Unsolicited Start: 08-08-2024 End: 08-08-2024 Clinisync Result Encounter Rosalva Anitha DO Work Phone: [facility] Unsolicited Start: 08-05-2024 End: 08-05-2024 Clinisync Result Encounter Rosalva Anitha DO Work Phone: [facility] Unsolicited Start: 08-05-2024 End: 08-05-2024 Clinisync Result Encounter Rosalva Anitha DO Work Phone: [facility] Unsolicited Start: 08-05-2024 End: 08-05-2024 Office outpatient visit 5 minutes [facility] Anitha Nurse [facility] Comment on above: GA: 17w3d Start: 08-05-2024 End: 08-05-2024 ambulatory ROSALVA ANITHA Not Available Start: 07-24-2024 ambulatory [place] NILL Facility:[facility] Start: 04-11-2024 End: 04-11-2024 ambulatory [place] R NILL Facility:[facility] Start: 04-11-2024 End: 04-11-2024 Patient encounter procedure [place] R NILL [facility] Start: 03-24-2024 ambulatory [place] MALLORYL Facility:[facility] Start: 02-01-2024 End: 02-01-2024 Patient encounter procedure Ki Lock DO Work Phone: [facility] Comment on above: Encounter for drug s creening Start: 02-01-2024 End: 02-01-2024 ambulatory ROSALVA ANITHA Not Available Start: 01-14-2024 End: 01-14-2024 ambulatory Anatoly XAVIER Facility:[facility] Start: 12-31-2023 End: 12-31-2023 ambulatory Shaw Jorgensen Facility: [place] Start: 12-31-2023 End: 12-31-2023 Patient encounter procedure [place] R NILL [facility] Start: 12-25-2023 ambulatory [place] NILL Facility:[facility] Start: 09-07-2023 End: 09-07-2023 ambulatory ROSALVA ANITHA Not Available Start: 05-05-2023 End: 05-05-2023 Phys/qhp telephone evaluation 5-10 min Rosalva Anitha DO Work Phone: [facility] Comment on above: Encounter to discuss test results Start: 07-15-2022 End: 07-16-2022 ambulatory KHLOE MORANLY Facility:[facility] Start: 02-04-2022 End: 02-05-[address] ROSALVA WELSH . Facility:[facility] Start: 10-29-2021 Encounter for preprocedural laboratory examination DR ROSALVA WELSH . [facility] Start: 10-25-2021 End: 10-25-[address] ROSALVA WELSH . Facility:[facility] Start: 10-23-2021 End: 10-24-[address] ROSALVA WELSH . Facility:[facility] Start: 10-23-2021 End: 10-24-2021 Encounter for preprocedural laboratory examination DR ROSALVA WELSH . Facility:[facility] Start: 10-22-2021 Encounter for other preprocedural examination DR ROSALVA WELSH . [facility] Start: 10-17-2021 End: 10-18-[address] ROSALVA WELSH . Facility:[facility] Start: 10-17-2021 End: 10-18-2021 Encounter for other preprocedural examination DR ROSALVA WELSH . Facility:[facility] Start: 10-09-2021 End: 10-10-[address] ROSALVA WELSH . Facility:[facility] Start: 10-08-2021 End: 10-09-[address] ROSALVA WELSH . Facility: Procedures Date Procedure Procedure Detail Performing Clinician Start: 08-29-2024 Urnls dip stick/tabl et rgnt non-auto w/o micrscp Rosalva Welsh DO Work Phone: Start: 08-08-2024 [facility] DRUG SCREEN RAPI D (URINE) Rosalva Welsh DO Work Phone: Start: 08-05-2024 ALL CBC WITH AUTO DIFF Rosalva Welsh DO Work Phone: Laparoscopy [place] POND Removal of foreign b jasmyn from foot [place] P[place] Tonsillectomy and adenoidectomy [place] P[facility] Plan of Treatment Date Care Activity Detail Author Start: 11-28-2024 Influenza vaccination Influenz a Vaccine (Season Ended) [facility] Start: 09-27-2024 End: 09-27-2024 Patient encounter procedure 09/27/2024 10:30 AM EDT Routine [facility] [address] [place] [phone] Tran Gomez PA [address] [place], [place] [id number] [facility] Start: 08-29-2024 End: 08-29-2024 Patient encounter procedure 08/29/2024 2:30 PM EDT Routine [facility] [address] [place] [phone] Rosalva Welsh DO [address] [place], [place] [id number] [facility] Start: 08-29-2024 End: 08-29-2024 Professional / ancillary services management 08/29/2024 1:00 PM EDT Ancillary Procedure [facility] [address] [address] [facility] Start: 08-05-2024 End: 08-05-2025 ABO/Rh ABO/Rh Lab Routine Missed menses , unspecified gestational age Expected: 08/05/2024 (Approximate), Expires: 08/05/2025 [facility] Comment on above: Expected: 08/05/2024 (Approximate), Expires: 08/05/2025 Start: 08-05-2024 End: 10-05-2024 Alpha fetoprotein, maternal Alpha fetoprotein, maternal Lab Routine , unspecified gestational age Expected: 08/05/2024 (Approximate), Expires: 10/05/2024 [facility] Comment on above: Expected: 08/05/2024 (Approximate), Expires: 10/05/2024 Start: 08-05-2024 End: 08-05-2025 Blood type and Indirect antibody screen panel - Blood Type and screen Lab Routine Missed menses , unspecified gestational age Expected: 08/05/2024 (Approximate), Expires: 08/05/2025 [facility] Work Phone: Comment on above: Expected: 08/05/2024 (Approximate), Expires: 08/05/2025 Start: 08-05-2024 End: 08-05-2025 Drugs of abuse panel - Urine by Screen method Rapid drug screen, urine Lab Routine , unspecified gestational age Encounter for supervision of normal first in first trimester Expected: 08/05/2024 (Approximate), Expires: 08/05/2025 [facility] Comment on above: Expected: 08/05/2024 (Approximate), Expires: 08/05/2025 Start: 08-05-2024 End: 11-05-2024 US for US OB 14+ weeks anatomy scan Imaging Routine Screening, , for anatomic survey Expected: 08/05/2024, Expires: 11/05/2024 [facility] Comment on above: Expected: 08/05/2024 , Expires: 11/05/2024 Start: 05-19-2024 End: 05-19-2024 Patient encounter procedure 05/19/2024 3:55 PM EST Office Visit [facility] [address] [place] [phone] Rafaela Encarnacion, DAYCARE ASSISTANT-[employer]IAN [employer] [address] [place] [address] [facility] Start: 12-15-2023 End: 12-15-2023 Patient encounter procedure 12/15/2023 11:00 AM EDT Office Visit [facility] [address] [place] [address] Rosalva Welsh DO [address] [place] [address] [facility] Start: 11-29-2023 Influenza vaccination Influenza Vacc ine (#1) [facility] Start: 05-11-2023 End: 05-11-2023 Patient encounter procedure 05/11/2023 4:05 PM EST Office Visit [facility] [address] [place] [phone] Rafaela Encarnacion APRN-[employer]IAN [employer] [address] [place] [address] [facility] Start: 11-28-2022 Influenza vaccination Influ[facility] Bacteria identified in Urine by Culture Urine culture Microbiology Routine Missed menses Ordered: 08/05/2024 [facility] Comment on above: Ordered: 08/05/2024 CBC W Auto Different ial panel - Blood CBC and differential Lab Routine Missed menses , unspecified gestational age Ordered: 08/05/2024 [facility] Comment on above: Ordered: 08/05/2024 Hemoglobin A1c/Hemoglobin.total in Blood Hemoglobin A1c Lab Routine Missed menses , unspecified gestational age Ordered: 08/05/2024 [facility] Comment on above: Ordered: 08/05/2024 Hepatitis B virus surface Ag [Presence] in Serum or Plasma by Immunoassay Hepatitis B surface antigen Lab Routine Missed menses , unspecified gestational age Ordered: 08/05/2024 [facility] Comment on above: Ordered: 08/05/2024 Hepatitis C virus Ab [Presence] in Serum or Plasma by Immunoassay Hepatitis C antibody Lab Routine Missed menses , unspecified gestational age Ordered: 08/05/2024 [facility] Comment on above: Ordered: 08/05/2024 HIV-1/HIV-2 antigen/antibody combination immunoassay HIV-1 and HIV-2 antibodies Lab Routine Missed menses , unspecified gestational age Ordered: 08/05/2024 [facility] Comment on above: Ordered: 08/05/2024 Reagin Ab [Presence] in Serum by RPR RPR Lab Routine Missed menses , unspecified gestational age Ordered: 08/05/2024 [facility] Comment on above: Ordered: 08/05/2024 Rubella antibody, IgG Rubella an tibody, IgG Lab Routine Missed menses , unspecified gestational age Ordered: 08/05/2024 [facility] Comment on above: Ordered: 08/05/2024 Immunizations Immunization Date Immunization Notes Care Provider Fa cility 03-10-2022 SARS-CoV-2 (COVID-19 ) [id number].[id number] [place] POND [facility] 01-09-2022 influenza virus vaccine, unspecified formulation Rosalva Welsh DO Work Phone: [facility] 09-07-2020 SARS-CoV-2 (COVID-19 ) mRNA BNT-162b2 vax [place] MALLORYL [facility] Comment on above: Result Comment: 2023: TPVAL 08-17-2020 SARS-CoV-2 (COVID-19 ) mRNA BNT-162b2 vax [place] MALLORYL [facility] Comment on above: Result Comment: 2023: TPVAL Payers Date Payer Category Payer Private Health Insurance [facility] MEDICAID [id number] 2024 Medicaid [id number] 2023 Unknown [id number] 2022 Unknown BCBS BCBS xxxxxx [id number] 2022-Present [phone] [address] [place] [address] [id number] 2022 Unknown [id number] 1999 Unknown [id number] 2.16.840.1.064630.3.579.2. 593 1999 Unknown [id number] 2.16.840.1.753968.3.579.2. 593 1999 Unknown [id number] 2.16.840.1.804200.3.579.2. 593 1999 Unknown [id number] 2.16.840.1.893258.3.579.2. 593 1999 Unknown [id number] 2.16.840.1.534127.3.579.2. 593 1999 Unknown [id number] 2.16.840.1.416251.3.579.2. 593 1999 Unknown [id number] 2.16.840.1.181520.3.579.2. 727 1999 Unknown [id number] 2.16.840.1.593068.3.579.2. 727 1999 Unknown [id number] 2.16.840.1.137728.3.579.2. 1259 1999 Unknown [id number] 2.16.840.1.075306.3.579.2. 1259 1999 Unknown [id number] 2.16.840.1.285749.3.579.2. 1259 1999 Unknown [id number] 2.16.840.1.268470.3.579.2. 1259 1999 Unknown [id number] 2.16.840.1.134901.3.579.2. 1259 1999 Unknown [id number] 2.16.840.1.234095.3.579.2. 1259 1960 Self-pay 1960 Unknown [id number] Unknown [id number] 2.16.840.1.008672.3.579.2. 593 Social History Date Type Detail Facility Start: 09-03-2022 End: 04-11-2024 Tobacco smoking status MSIS Never smoked tobacco [facility] Start: 09-03-2022 Tobacco use and exposure Smokeless tobacco non-user [facility] Start: 04-22-2023 End: 08-05-2024 Alcohol intake Lifetime non-drinker (finding) [facility] Start: 04-22-2023 End: 09-07-2023 History of Social function [facility] Start: 04-22-2023 End: 09-07-2023 Tobacco use panel [facility] Start: 2000 Sex Assigned At Female [facility] Start: 08-27-2022 Gender identity Identifies as female gender (finding) [facility] Start: 08-27-2022 Sexual orientation Heterosexual (finding) [facility] Tobacco smoking status Former sm okeless tobacco user, quit more than 30 [facility] Start: 04-19-2024 [facility] Functional Status Date Assessment Result Facility 04-11-2024 Functional Status N/A [facility] 12-31-2023 Functional Status N/A [facility] Clinical Notes 10-25-2021 to 08-29-2024 Khloe Garcia NP - 08/29/2024 2:30 PM Brad Dunn MA - 08/05/2024 11:00 AM Madison Jones MA - 02/01/2024 9:35 AM Orlin Edouard LPN - 05/05/2023 8:10 AM EST Note Date & Type Note Facility 08-29-2024 History of Present illness Narrative Reason for Appointment: Patient ID: Loyda Adame is a 24 y.o. female who presents for Routine Visit Patient presents today for Return OB appointment. MEDICATIONS Current Outpatient Medications Medication Instructions cetirizine (ZyrTEC) 10 MG tablet Every 24 hours DULoxetine (CYMBALTA) 60 mg, Daily magnesium oxide (MAG-OX) 400 mg, Oral, Daily Vit-Fe Fumarate-FA ( VITAMIN PO) Take by mouth ALLERGIES No Known Allergies PROBLEMS Active Ambulatory Problems Diagnosis Date Noted Pelvic pain in female 04/10/2023 Resolved Ambulatory Problems Diagnosis Date Noted No Resolved Ambulatory Problems Past Medical History: Diagnosis Date Abnormal uterine bleeding (AUB) Anxiety and depression (CMS/HCC) Anxiety disorder DUB (dysfunctional uterine bleeding) Dysmenorrhea Endometriosis Menorrhagia Menstrual irregularity Nonsmoker Protein S deficiency (CMS/HCC) HISTORY PAST MEDICAL HISTORY SOCIAL HISTORY Past Medical History: Diagnosis Date Abnormal uterine bleeding (AUB) Anxiety and depression (CMS/HCC) Anxiety disorder DUB (dysfunctional uterine bleeding) Dysmenorrhea Endometriosis Menorrhagia Menstrual irregularity Nonsmoker Pelvic pain in female Protein S deficiency (CMS/HCC) Social History Tobacco Use Smoking status: Never Smokeless tobacco: Never Substance Use Topics Alcohol use: Never Drug use: Never FAMILY HISTORY Family History Problem Relation Name Age of Onset Endometriosis Mother acute Melanoma Paternal Grandmother Heart disease Paternal Grandmother SURGICAL HISTORY Past Surgical History: Procedure Laterality Date FOOT SURGERY 01/05/2015 toothpick removal LAPAROSCOPY DIAGNOSTIC / BIOPSY / ASPIRATION / LYSIS 10/25/2021 diagnostic - endometriosis PAP SMEAR 11/05/2020 negaitve TONSILLECTOMY 03/27/2010 WISDOM TOOTH EXTRACTION 01/26/2016 Pearl teeth REVIEW OF SYSTEMS Review of Systems: Review of Systems Constitutional: Negative. HENT: Negative. Eyes: Negative. Respiratory: Negative. Cardiovascular: Negative. Gastrointestinal: Negative. Genitourinary: Negative. Musculoskeletal: Negative. Skin: Negative. Neurological: Negative. All other systems reviewed and are negative. Hematological: Negative. Endocrine: Negative. Allergic/Immunologic: Negative. OBJECTIVE Objective: Physical Exam Constitutional: Appearance: Normal appearance. She is well-developed. Cardiovascular: Rate and Rhythm: Normal rate and regular rhythm. Pulmonary: Effort: Pulmonary effort is normal. Breath sounds: Normal breath sounds. Abdominal: General: Bowel sounds are normal. There is no distension. Palpations: Abdomen is soft. Tenderness: There is no abdominal tenderness. There is no guarding or rebound. Musculoskeletal: General: No swelling. Normal range of motion. Right lower leg: No edema. Left lower leg: No edema. Neurological: Mental Status: She is alert and oriented to person, place, and time. Skin: General: Skin is warm and dry. Psychiatric: Mood and Affect: Mood normal. Behavior: Behavior normal. Vitals and nursing note reviewed. Exam conducted with a smooth stucco resurfacer present. Vitals: Estimated body mass index is 26.21 kg/m as calculated from the following: Height as of 08/03/23: 5' 5 . Weight as of this encounter: 157 lb 8 oz. BP: 114/72 No LMP recorded (lmp unknown). Patient is . ASSESSMENT & PLAN ICD-10-CM 1. Second trimester Z34.92 POCT urinalysis dipstick manually resulted 2. 20 weeks gestation of Z3A.20 Return OB: Patient presents today for a routine obstetrics appointment. Patient is currently 20w6d . Patient states she is doing well but has complaints of being tired due to current . Patient has verbalizes frequent movement. Orders Placed This Encounter Procedures POCT urinalysis dipstick manually resulted Follow Up: Patient is to return to office in 4 week for routine OB appointment. Documented by Khloe Garcia NP on behalf of: Rosalva Welsh DO documented in this encounter [facility] 08-05-2024 History of Present illness Narrative Reason for Appointment: Patient ID: Loyda Adame is a 24 y.o. female who presents for Amenorrhea Patient presents today for a Nurse OB Intake appointment. Patient is 17w3d with a Estimated Date of Delivery: 01/10/25 OB History Para Term AB Living 1 SAB IAB Ectopic Multiple Live Births # Outcome Date GA Lbr Anselmo/2nd Weight Sex Type Anes PTL Lv 1 Current Current Medications: has a current medication list which includes the following prescription(s): cetirizine, duloxetine, and magnesium oxide. Medical History: Active Ambulatory Problems Diagnosis Date [...] negaitve TONSILLECTOMY 03/27/2010 WISDOM TOOTH EXTRACTION 01/26/2016 Pearl teeth No Known Allergies Vitals: Estimated body mass index is 29.09 kg/m as calculated from the following: Height as of 08/03/23: 5' 5 . Weight as of 09/07/23: 174 lb 12.8 oz. BP: No LMP recorded (lmp unknown). Patient is . Assessment/Plan Diagnoses and all orders for this visit: Missed menses - Type and screen; Future - ABO/Rh; Future - CBC and differential - Hemoglobin A1c - RPR - Rubella antibody, IgG - Hepatitis B surface antigen - Hepatitis C antibody - HIV-1 and HIV-2 antibodies - Urine culture - POCT , urine manually resulted - POCT urinalysis dipstick manually resulted , unspecified gestational age - Type and screen; Future - ABO/Rh; Future - CBC and differential - Hemoglobin A1c - RPR - Rubella antibody, IgG - Hepatitis B surface antigen - Hepatitis C antibody - HIV-1 and HIV-2 antibodies - Rapid drug screen, urine; Future - Alpha fetoprotein, maternal; Future - magnesium oxide (Mag-Ox) 400 MG tablet; Take 1 tablet (400 mg) by mouth Daily Encounter for supervision of normal first in first trimester - Rapid drug screen, urine; Future Screening, , for anatomic survey - US OB 14+ weeks anatomy scan; Future Nurse Note: OB Intake: Patient presents today for first OB visit. Patients history has been reviewed in great detail including any potential risks. Patient signed consent forms and patient desires testing in both trimesters. Patient currently has no complaints and has been advised to drink 6-8 glasses of water a day, eat no raw or undercooked meat, and stay away from [facility]. Patient has also been advised to not change litter boxes and eat 6 small meals a day. Patient has been consulted regarding the do's and don'ts of . Patient was given labs and all questions and concerns were answered. Follow Up: Patient is to return in 4 weeks for routine OB appointment. Patient is to have labs drawn at directed and return to office for initial OB appointment with provider. Patient may call office as needed with any concerns or questions. Nurse Visit Completed by: Marlene Dunn MA documented in this encounter [facility] 02-01-2024 History of Present illness Narrative Pt presents today for a pre-employment 5 panel drug screen for [facility]. Pt verified by photo ID. documented in this encounter [facility] 12-31-2023 Evaluation + Plan note Diagnostic Tests PendingHepatic Function Panel 12/31/23 [facility] [place] 12-31-2023 Note General Surgery Offi ce/Clinic Note [...] Immunizations Vaccine Date Status Comments SARS-CoV-2 (COVID-19) [id number].[id number] 03/10/2022 Recorded SARS-CoV-2 (COVID-19) mRNA BNT-162b2 vax 09/07/2020 Recorded 2023-12-25: TPVAL SARS-CoV-2 (COVID-19) m (more content not included)... [facility] Comment on above: Result Comment: Elec tronically Signed By: DEJAH ARDON, [place]\Date and Time Signed: 12/31/23 09:48 EDT 05-05-2023 History of Present illness Narrative Reason for Appointment: Patient ID: Loyda Adame is a 23 y.o. female who presents for Results Patient presents today via telephone call for a telehealth appointment. Patients Phone #: [phone] (mobile) Current Medications: has a current medication [...] negaitve TONSILLECTOMY 03/27/2010 WISDOM TOOTH EXTRACTION 01/26/2016 Pearl teeth No Known Allergies Vitals: Estimated body [...] DO documented in this encounter [facility] 10-25-2021 Note OPERATIVE NOTE OPERATION DATE: 11/01/2021 PROCEDURE: Diagnostic laparoscopy with chromopertubation. PREOPERATIVE DIAGNOSIS: 1. Pelvic pain. 2. Possible tubal dysfunction. POSTOPERATIVE DIAGNOSIS: 1. Pelvic pain. 2. Possible tubal dysfunction. ANESTHESIA: General. SURGEON: Rosalva Welsh D.O. PROJECT COORDINATOR: DUC Sherman URINE OUTPUT: Yellow and [...] to Recovery Room in stable condition [facility] Evaluation note Diagnosis Encounter to discuss test results Other specified counseling documented in this encounter [facility] HealthcareEvaluation note* Diagnosis Encounter for drug screening documented in this encounter [facility] HealthcareEvaluation note* Diagnosis Missed menses , unspecified gestational age Encounter for supervision of normal first in first trimester Screening, , for anatomic survey Encounter for anatomic survey documented in this encounter [facility] HealthcareEvaluation note* Diagnosis Second trimester state, incidental 20 weeks gestation of documented in this encounter [facility] HealthcareHospital course Narrative No data available for this section [facility] Discharge instructions No data available for this section [facility] [place] Progress note No data available for this section [facility] [place] Summary Purpose Family History No Family History Records FoundNo Family History Records Found No data available for this section No data available for this section No Family History Records FoundNo Family History Records Found Advance Directives No Advanced Directives Records FoundNo Advanced Directives Records FoundNo Advanced Directives Records FoundNo Advanced Directives Records Found Additional Source Comments INFORMATION SOURCE (unrecogn ized section and content) DATE CREATED AUTHOR 05/18/2019 [facility] DATE CREATED AUTHOR AUTHOR'S ORGANIZ ATION 07/20/2022 [facility] DATE CREATED AUTHOR AUTHOR'S ORGANIZ ATION 07/24/2024 [facility] DATE CREATED AUTHOR AUTHOR'S ORGANIZ ATION 08/31/2024 [facility] EPIC Reason for Visit (unrecogniz ed section and content) Reason Comments Results Reason Comments Amenorrhea Reason Comments Routine Visit Care Teams (unrecognized sec tion and content) Service Desk Analyst Relationship Specialty Start Date End Date Shaw Jorgensen MD [address] [place] [address] PCP - General Family Medicine 09/03/22 Service Desk Analyst Relationship Specialty Start Date End Date Shaw Jorgensen MD [address] [place] [address] PCP - General Family Medicine 09/03/22 Service Desk Analyst Relationship Specialty Start Date End Date Shaw Jorgensen MD [address] [place] [address] PCP - General Family Medicine 09/03/22 Service Desk Analyst Relationship Specialty Start Date End Date Shaw Jorgensen MD [address] [place] [address] PCP - General Family Medicine 09/03/22 Service Desk Analyst Relationship Specialty Start Date End Date Shaw Jorgensen MD [address] [place] [address] PCP - General Family Medicine 09/03/22 FOR [...] BE BASED ON THE PRIMARY CLINICAL RECORDS. [employer] provides no warranty or guarantee of the accuracy or completeness of information in this document.
== END 2024-09-26 09:27 | disposition home or self-care (01) ==
LOC: US 09:26
PROVIDERS: PCP Family Medicine; Visit Provider Obstetrics & Gynecology
DX: Z36.2 Encounter for other antenatal screening follow-up (principal)
CPT/HCPCS: 76815

== ENCOUNTER 2024-09-27 19:12 | Outpatient (REF) | payer OTHER, SELFPAY ==
--- OUTSIDE RECORDS SUMMARY | 2024-09-27 19:33 | XMS_ITS | CCD ---
Author Organization [facility]iniSy[facility] Care Team Providers Care Sleeve Ironer Name Role Phone ANITHA ., DR BLACKWELL [...] GARCIA Admitting Unavailable KHLOE GARCIA Attending Unavailable JAMEEL ., DR HAY Primary Care Unavailable KHLOE GARCIA Consulting Unavailable ANITHA ., DR BLACKWELL Admitting Unavailable ANITHA ., DR BLACKWELL Attending Unavailable HOY ., DR HAY Primary Care Unavailable AHSAN, DR NIKO Selby Consulting Unavailable Shaw Jorgensen MD Primary Care Provider Shaw Jorgensen Primary Care Physician Israel POND Attending Unavailable Shaw Jorgensen Referring Unavailable Israel POND Attending Unavailable Anatoly PARK Attending Unavailable Shaw Jorgensen MD Primary Care Provider ROSALVA WELSH Attending Unavailable ANITHA, ROSALVA Attending Unavailable Allergies Allergy Classification Reported Allergen(s) Allergy Type Date of Onset Reaction(s) Facility (1 source) No Known Medication Allergies; Translations: [No Known Medication Allergies] Propensity to adverse reactions (disorder) [facility] Repository Medications Current Medications Medication Drug Class(es) Dates Sig (Normalized) Sig (Original) cetirizine hydrochloride 10 mg oral tablet (13 sources) Histamine-1 Receptor Antagonist Start: 12-25-2023 take 1 tablet by mouth once daily cetirizine 10 mg Tab 10 mg = 1 tab(s), Oral, Daily, Refills(s) 0 Start Date: 12/25/23 Status: Ordered DULoxetine 60 mg delayed release oral capsule (11 sources) Serotonin and Norepinephrine Reuptake Inhibitor take [...] Status: Ordered Vit-Fe Fumarate-FA ( VITAMIN PO) (8 sources) Vit-Fe Fumarate-FA ( VITAMIN PO) Take [...] End: 05-05-2023 QUEtiapine (SEROquel) 25 MG tablet Hguojjfzi-Ftrjyykqm-Jvtxqoyo d (Myfembree) 40-1-0.5 MG tablet (2 sources) Start: 09-07-2023 take 1 tablet by mouth once daily Iokueiblb-Jwcjwjwpr-Orlcnjzia (Myfembree) 40-1-0.5 MG tablet Indications: Endometriosis Take [...] without cholecystitis without obstruction] Onset: 12-31-2023 Episodic Immunizations and screening for infectious disease (2 sources) Exposure to sexually transmissible disorder; Translations: [Contact with and (suspected) exposure to infections with a predominantly sexual mode of transmission] 09-27-2024 Episodic Menstrual disorders (3 sources) Excessive and [...] 12-31-2023 Episodic Other and delivery including normal (6 sources) ; Translations: [Encounter for supervision of normal , unspecified, unspecified trimester] 08-05-2024 Episodic Other screening for suspected conditions (not mental disorders or infectious disease) (3 sources) Patient encounter status; Translations: [Encounter for other specified screening] 08-05-2024 Episodic Other skin disorders (2 sources) Alopecia 12-25-2023 Episodic Other upper respiratory disease (2 sources) Seasonal allergic rhinitis 12-25-2023 Chronic Residual codes; unclassified (2 sources) Insomnia 12-25-2023 Episodic Residual codes; unclassified (2 sources) Gestation period, 20 weeks; Translations: [20 weeks gestation of ] 08-29-2024 Episodic Residual codes; unclassified (2 sources) Gestation period, 25 weeks; Translations: [25 weeks gestation of ] 09-27-2024 Episodic Unclassified (1 source) CONTACT W/AND (SUSP) EXPOS COVID-19; Translations: [CONTACT W/AND (SUSP) EXPOS COVID-19] Onset: 10-29-2021 Unclassified (3 sources) OB Reminders Onset: 09-20-2024 09-20-2024 Past or Other Problems Problem Classification Problem Date Documented Da te Episodic/Chronic Abdominal pain (15 sources) Pelvic and perineal pain; Translations: [Pain in female pelvis] Onset: 10-25-2021 Episodic Other female genital disorders (4 sources) Other specified conditions associated with female genital organs and menstrual cycle; Translations: [OTH SPEC COND FE GEN ORG MENST CYCL] Onset: 02-04-2022 Episodic Results Test Name Value Interpretation Reference Range Facility Urinalysis macro (dipstick) panel (U)on 09-27-2024 Bilirubin, UA Negative Negative - 4(70) +++ mg/dL [facility] Blood, UA Negative Negative - 50 Ralf/mcL [facility] Clarity, UA Clear [facility] Color, UA Yellow [facility] Glucose, UA Negative Negative - 2000(110) ++++ mg/dL [facility] Interpretation and review of laboratory results Abnormal [facility] Ketones, UA Negative Negative - 160(16) ++++ mg/dL [facility] Leukocytes, UA Trace Negative - 500+++ Joce/mcL [facility] Nitrite, UA Negative Negative - Positive [facility] pH, UA 7 5 - 9 [facility] Protein, UA Trace Negative - 2000(20) ++++ mg/dL [facility] Spec Grav, UA 1.02 1 - 1.03 [facility] Urobilinogen, UA 2.0 0.2 - 12 mg/dL [facility] US OB INCOMPLETE ANATOMYon 0 09-26-[address] [address] Ultrasound Report Signed Patient: LOYDA ADAME MR#: [id number] : 2000 Acct:[id number] Age/Sex: 24 / F ADM Date: 09/26/24 Loc: US Attending Dr: Rosalva Welsh D.O. Ordering Physician: Rosalva Welsh D.O. Date of Service: 09/26/24 Procedure(s): US OB incomplete anatomy Accession Number(s): [id number] cc: Rosalva Welsh D.O.; Shaw Jorgensen M.D. The [place] [id number] Patient Name: LOYDA ADAME MRN: [facility]:[id number] date: 2000 Sex: F Assigned Patient Location: US Current Patient Location: US Accession/Order Number: [id number] Exam Date: 09/26/2024 10:11 Report Date: 09/26/2024 10:13 At the request of: ROSALVA WELSH DO Procedure: US OB incomplete anatomy ULTRASOUND OB INCOMPLETE ANATOMY COMPARISON: None CLINICAL DATA: Incomplete evaluation of the ventricular outflow tracts There is a single live intrauterine gestation in cephalic presentation. There is cardiac and somatic activity with heart rate of 163 bpm. The amniotic fluid volume is subjectively normal. A four-chamber heart is visualized. An echogenic focus is visualized within the left ventricle which is a normal variant. The right and left ventricular outflow tracts were successfully visualized. US/US OB incomplete anatomy IMPRESSION: VISUALIZATION OF THE VENTRICULAR OUTFLOW TRACTS. Impression dictated by: Gina Boyd M.D. 09/26/2024 10:13 AM Dictation Location: [place] [address] Electronically authenticated by: [id number] Y Date: 09/26/2024 10:13 Dictated By: Gina Boyd M.D. Signed By: 09/26/24 1016 DD/ 1013 TD/TT: Rn Staff: [facility] Radiology, Radiologist, MD - 09/26/2024 [place] [address] Ultrasound Report Signed Patient: LOYDA ADAME MR#: [id number] : 2000 Acct:[id number] Age/Sex: 24 / F ADM Date: 09/26/24 Loc: US Attending Dr: Rosalva Welsh D.O. Ordering Physician: Rosalva Welsh D.O. Date of Service: 09/26/24 Procedure(s): US OB incomplete anatomy Accession Number(s): [id number] cc: Rosalva Welsh D.O.; Shaw Jorgensen M.D. [place] [id number] Patient Name: LOYDA ADAME MRN: [id number] date: 2000 Sex: F Assigned Patient Location: US Current Patient Location: US Accession/Order Number: [id number] Exam Date: 09/26/2024 10:11 Report Date: 09/26/2024 10:13 At the request of: ROSALVA WELSH DO Procedure: US OB incomplete anatomy ULTRASOUND OB INCOMPLETE ANATOMY COMPARISON: None CLINICAL DATA: Incomplete evaluation of the ventricular outflow tracts There is a single live intrauterine gestation in cephalic presentation. There is cardiac and somatic activity with heart rate of 163 bpm. The amniotic fluid volume is subjectively normal. A four-chamber heart is visualized. An echogenic focus is visualized within the left ventricle which is a normal variant. The right and left ventricular outflow tracts were successfully visualized. US/US OB incomplete anatomy IMPRESSION: VISUALIZATION OF THE VENTRICULAR OUTFLOW TRACTS. Impression dictated by: Gina Boyd M.D. 09/26/2024 10:13 AM Dictation Location: [place] [address] Electronically authenticated by: [id number] Y Date: 09/26/2024 10:13 Dictated By: Gina Boyd M.D. Signed By: 09/26/24 1016 DD/ 1013 TD/TT: Rn Staff: [facility] Radiology Study observation (narrative) [facility] OB INCOMPLETE ANATOMYOrde red By: Radiologist Radiology on 09-26-2024 [facility] Work Phone: US OB 14+ WEEKS ANATOMY SCAN on [...] II, MD, PHD at 30-Aug-2024 11:32:36 PM [facility] Normal Not Available Comment on above: Order Comment: US OB ANATOMY SINGLE W US OB CERVICAL LENGTH Estimated Date of Delivery: 01/10/25 Gestational Age as of 08/05/2024: 17w3d Urinalysis macro (dipstick) panel (U)on 08-29-2024 Bilirubin, UA Negative Negative - 4(70) +++ mg/dL [facility] Blood, UA Negative Negative - 50 Ralf/mcL [facility] Clarity, UA Clear [facility] Color, UA Yellow [facility] Glucose, UA Negative Negative - 1999(110) ++++ mg/dL [facility] Interpretation and review of laboratory results Normal [facility] Ketones, UA Negative Negative - 160(16) ++++ mg/dL [facility] Leukocytes, UA Negative Negative - 500+++ Joce/mcL [facility] Nitrite, UA Negative Negative - Positive [facility] pH, UA 7 5 - 9 [facility] Protein, UA Negative Negative - 1999(20) ++++ mg/dL [facility] Spec Grav, UA 1.01 1 - 1.03 [facility] Urobilinogen, UA 0.2 0.2 - 12 mg/dL [facility] DRUG SCREEN RAPID (URINE )on 08-08-2024 AMPHETAMINE SCREEN URINE Negative NEGATIVE [facility] BARBITURATES SCREEN URINE Negative NEGATIVE [facility] BENZODIAZEPINES SCREEN URINE Negative NEGATIVE [facility] BUPRENORPHINE SCREEN URINE Negative NEGATIVE [facility] Comment on above: DRUG CLASS TEST SYST [...] 300 ng/mL CANNABINOID SCREEN URINE Negative NEGATIVE [facility] COCAINE SCREEN URINE Negative NEGATIVE [facility] METHADONE SCREEN URINE Negative NEGATIVE [facility] METHAMPHETAMINES SCREEN URINE Negative NEGATIVE [facility] OPIATE SCREEN URINE Negative NEGATIVE [facility] OXYCODONE SCREEN URINE Negative NEGATIVE [facility] PHENCYCLIDINE SCREEN URINE Negative NEGATIVE [facility] TRICYCLIC ANTIDEPRESSANT URINE Negative NEGATIVE [facility] WITH AUTO DIFFon BASOPHILS ABSOLUTE AUTO 0 [facility] Basophils/100 WBC (Bld) 0.5 % 0.2 - 2.0 % [facility] Eosinophils/100 WBC (Bld) 2 % 0.9 - 7.0 % [facility] Erythrocyte distribution width (RBC) [Ratio] 13.8 % 11.0 - 15.0 % [facility] Hematocrit (Bld) [Volume fraction] 35.4 % Low 36.0 - 48.0 % [facility] Hemoglobin (Bld) [Mass/Vol] 12.3 g/dL 12.0 - 16.0 g/dL [facility] IMMATURE GRANULOCYTES ABS AUTO 0.03 [facility] Immature granulocytes/100 WBC (Bld) 0.4 % 0.0 - 0.5 % [facility] Interpretation and review of laboratory results Abnormal [facility] LYMPHOCYTES ABSOLUTE AUTO 1.3 [facility] Lymphocytes/100 WBC (Bld) 15.5 % Low 20.5 - 60.0 % [facility] MCH (RBC) [Entitic mass] 31.6 pg 26.7 - 34.0 pg [facility] MCHC (RBC) [Mass/Vol] 34.7 g/dL 29.9 - 35.2 g/dL [facility] MCV (RBC) [Entitic vol] 91 fL 81.0 - 99.0 fL [facility] MONOCYTES ABSOLUTE AUTO 0.5 [facility] Monocytes/100 WBC (Bld) 5.9 % 1.7 - 12.0 % [facility] NEUTROPHILS ABSOLUTE AUTO 6.1 [facility] Neutrophils/100 WBC (Bld) 75.7 % High 43.0 - 75.0 % [facility] Platelet mean volume (Bld) [Entitic vol] 9.5 fL 9.5 - 13.5 fL [facility] EO # 0.2 [facility] PLT 307 [facility] TB RBC 3.89 Low [facility] TB WBC 8.1 [facility] US OB LIMITED 1+ FETUSESon 0 08-05-2024 [...] II, MD, PHD at 07-Aug-2024 08:22:24 PM [facility] Normal Not Available Comment on above: [...] Immunizations Vaccine Date Status Comments SARS-CoV-2 (COVID-19) mRNAMUL.ORD![id number] 03/10/2022 Recorded SARS-CoV-2 (COVID-19) mRNA BNT-162b2 vax 09/07/2020 Recorded 2023-12-25: TPVAL SARS-CoV-2 (COVID-19) mRNA BNT-162b2 vax 08/17/2020 Recorded 2023-12-25: TPVAL Normal [facility] Comment on above: Result Comment: Elec tronically Signed By: DEJAH ARDON, [place]\Date and Time Signed: 04/11/24 16:18 EST Ambulatory [...] for choosing us for your care. Normal [facility] QUANTIFERON TB GOLD PLUSon 0 07-17-2022 QuantiFERON Criteria Comment Normal [facility] Comment on above: Result Comment: [...] test. Performed By: #### Q NTTB #### [facility] [address] [place] [address] Dr. Elie Milan QuantiFERON Incubation Incubation performed. Normal [facility] Comment on above: Performed By: #### Q NTTB #### [facility] [address] [place] [address] Dr. Elie Milan QuantiFERON Mitogen Value >10.00 Normal [facility] Comment on above: Performed By: #### Q NTTB #### [facility] [address] [place] [address] Dr. Elie Milan QuantiFERON Nil Value 0.05 IU/mL Normal [facility] Comment on above: Performed By: #### Q NTTB #### [facility] [address] [place] [address] Dr. Elie Milan QuantiFERON TB1 Ag Value 0.06 IU/mL Normal [facility] Comment on above: Performed By: #### Q NTTB #### [facility] [address] [place] [address] Dr. Elie Milan QuantiFERON TB2 Ag Value 0.07 IU/mL Normal [facility] Comment on above: Performed By: #### Q NTTB #### [facility] [address] [place] [address] Dr. Elie Milan QuantiFERON-TB Gold Plus Negative Normal Negative [facility] Comment on above: Result Comment: No r esponse to M tuberculosis antigens detected. Infection with M tuberculosis is unlikely, but high risk individuals should be considered for additional testing (ATS/IDSA/CDC Clinical Practice Guidelines, 2017). The reference range is an Antigen minus Nil result of <0.35 IU/mL. Chemiluminescence immunoassay methodology Performed By: #### Q NTTB #### [facility] [address] [place] [address] Dr. Elie Milan HEPATITIS B SURFACE ANTIBODY , QUANTon 07-16-2022 Hepatitis B Surf AB Quant <3.1 Critically low Immunity>9.9 [facility] Comment on above: Result Comment: Stat us of Immunity Anti-HBs Level Inconsistent with Immunity 0.0 - 9.9 Consistent with Immunity >9.9 Performed By: #### H EPBSRF #### [facility] [address] [place] [address] Dr. Elie Milan MMR IMMUNITYon 07-16-2022 Mumps Abs, IgG 261.0 AU/mL Normal Immune >10.9 [facility] Comment on above: Result Comment: Nega tive <9.0 Equivocal 9.0 - 10.9 Positive >10.9 A positive result generally indicates past exposure to Mumps virus or previous vaccination. Performed By: #### M MRIMMU #### [facility] [address] [place] [address] Dr. Elie Milan Rubella Antibodies, IgG 3.97 index Normal Immune >0.99 [facility] Comment on above: Result Comment: Non- immune <0.90 Equivocal 0.90 - 0.99 Immune >0.99 Performed By: #### M MRIMMU #### [facility] [address] [place] [address] Dr. Elie Milan Rubeola Ab, IgG >300.0 Normal Immune >16.4 [facility] Comment on above: Result Comment: Nega tive <13.5 Equivocal 13.5 - 16.4 Positive >16.4 Presence of antibodies to Rubeola is presumptive evidence of immunity except when acute infection is suspected. Performed By: #### M MRIMMU #### [facility] [address] [place] [address] Dr. Elie Milan VARICELLA IGG ABon 3 Varicella Zoster IgG 1549 index Normal Immune >165 [facility] Comment on above: Result Comment: Nega tive <135 Equivocal 135 - 165 Positive >165 A positive result generally indicates exposure to the pathogen or administration of specific immunoglobulins, but it is not indication of active infection or stage of disease. Performed By: #### V ARCEL #### [facility] [address] [place], [place] [id number] Dr. Elie Milan US PELVIS AND TRANSVAGon [...] NIKO FOREMAN Date: 2022-02-04 20:13 Normal [facility] HCG-BETA SUBUNIT QUANTon hCG,Beta Subunit,Qnt,Serum <1 Normal [facility] Comment on above: Result Comment: Fema le (Non-) 0 - 5 (Postmenopausal) 0 - 8 . Female () Weeks of Gestation 3 6 - 71 4 10 - 750 5 552 - 7138 6 699 - 17625 7 7537 -967700 8 14023 -649807 9 668635 -357750 10 34179 -028104 12 15677 -421602 14 56605 - 72638 15 02245 - 49375 16 8500 - 15362 17 5950 - 44228 18 0546 - 10840 Tanesha ECLIA methodology Performed By: #### H CGSUB #### [facility] [address] [place] [address] Dr. Elie Milan CBC AUTO DIFFon 10-23-2021 BASO # 0.1 103/ul Normal 0.0-0.1 [facility] Comment on above: Performed By: #### C BC #### [facility] [address] [place] [address] Dr. Elie Milan Basophils/100 WBC (Bld) 1.1 % Normal 0.2-2.0 [facility] Comment on above: Performed By: #### C BC #### [facility] [address] [place] [address] Dr. Elie Milan EO # 0.3 103/ul Normal 0.0-0.7 [facility] Comment on above: Performed By: #### C BC #### [facility] [address] [place] [address] Dr. Elie Milan Eosinophils/100 WBC (Bld) 4.6 % Normal 0.9-7.0 [facility] Comment on above: Performed By: #### C BC #### [facility] [address] [place] [address] Dr. Elie Milan Erythrocyte distribution width (RBC) [Ratio] 11.9 % Normal 11.0-15.0 [facility] Comment on above: Performed By: #### C BC #### [facility] [address] [place] [address] Dr. Elie Milan Hematocrit (Bld) [Volume fraction] 41.0 % Normal 36.0-48.0 [facility] Comment on above: Performed By: #### C BC #### [facility] [address] [place] [address] Dr. Elie Milan Hemoglobin (Bld) [Mass/Vol] 14.0 g/dL Normal 12.0-16.0 [facility] Comment on above: Performed By: #### C BC #### [facility] [address] [place] [address] Dr. Elie Milan IG # 0.02 10e3/ul Normal 0.00-0.03 [facility] Comment on above: Performed By: #### C BC #### [facility] [address] [place] [address] Dr. Elie Milan IG % 0.3 % Normal 0.0-0.5 [facility] Comment on above: Performed By: #### C BC #### [facility] [address] [place] [address] Dr. Elie Milan LYMPH # 1.3 103/ul Normal 1.2-3.8 [facility] Comment on above: Performed By: #### C BC #### [facility] [address] [place] [address] Dr. Elie Milan Lymphocytes/100 WBC (Bld) 17.9 % Critically low 20.5-60.0 [facility] Comment on above: Performed By: #### C BC #### [facility] [address] [place] [address] Dr. Elie Milan MANUAL DIFF REQ NO Normal [facility] Comment on above: Performed By: #### C BC #### [facility] [address] [place] [address] Dr. Elie Milan MCH (RBC) [Entitic mass] 30.9 pg Normal 26.7-34.0 [facility] Comment on above: Performed By: #### C BC #### [facility] [address] [place] [address] Dr. Elie Milan MCHC (RBC) [Mass/Vol] 34.1 g/dL Normal 29.9-35.2 [facility] Comment on above: Performed By: #### C BC #### [facility] [address] [place] [address] Dr. Elie Milan MCV (RBC) [Entitic vol] 90.5 fL Normal 81.0-99.0 [facility] Comment on above: Performed By: #### C BC #### [facility] [address] [place] [address] Dr. Elie Milan MONO # 0.5 103/ul Normal 0.3-0.8 [facility] Comment on above: Performed By: #### C BC #### [facility] [address] [place] [address] Dr. Elie Milan Monocytes/100 WBC (Bld) 7.3 % Normal 1.7-12.0 [facility] Comment on above: Performed By: #### C BC #### [facility] [address] [place] [address] Dr. Elie Milan NEUT # 4.8 103/ul Normal 1.4-6.5 [facility] Comment on above: Performed By: #### C BC #### [facility] [address] [place] [address] Dr. Elie Milan Neutrophils/100 WBC (Bld) 68.8 % Normal 43.0-75.0 [facility] Comment on above: Performed By: #### C BC #### [facility] [address] [place] [address] Dr. Elie Milan Platelet mean volume (Bld) [Entitic vol] 9.9 fL Normal 9.5-13.5 [facility] Comment on above: Performed By: #### C BC #### [facility] [address] [place] [address] Dr. Elie Milan PLT 223 103/ul Normal 150-450 [facility] Comment on above: Performed By: #### C BC #### [facility] [address] [place] [address] Dr. Elie Milan RBC 4.53 106/ul Normal 4.20-5.40 [facility] Comment on above: Performed By: #### C BC #### [facility] [address] [place] [address] Dr. Elie Milan WBC 7.0 103/ul Normal 4.0-11.0 [facility] Comment on above: Performed By: #### C BC #### [facility] [address] [place] [address] Dr. Elie Milan HCG-BETA SUBUNIT QUANTon hCG,Beta Subunit,Qnt,Serum <1 Normal [facility] Comment on above: Result Comment: Fema le (Non-) 0 - 5 (Postmenopausal) 0 - 8 . Female () Weeks of Gestation 3 6 - 71 4 10 - 750 5 217 - 7138 6 415 - 76938 7 0049 -204625 8 94274 -572965 9 95655 -183586 10 27893 -522789 12 51604 -931634 14 90615 - 84011 15 77121 - 66835 16 9863 - 83482 17 6097 - 73480 18 7224 - 93243 Tanesha ECLIA methodology Performed By: #### H CGSUB #### [facility] [address] [place] [address] Dr. Elie Milan US PELVIS TRANSVAGon 022 [...] by: NIKO FOREMAN Date: 2021-10-08 16:31 Normal [facility] CNOVSPon 05-17-2019 CNOVSP Visit (SP) Office (IFTIKHAR) LOYDA ADAME ([id number]) 2000 F Date Time Provider Department 05/17/19 10:45 AM FORD MORGAN) IFTIKHAR During your visit today, we recorded the following information about you: Temperature Pulse Respiration Blood pressure 98.2 degrees 86/minute 18/minute 121/71 Weight Height 56.8 kg 1.632 m Ford Morgan MD 05/17/2019 2:07 PM Signed PATIENT NAME: Loyda Adame CLINIC NO.: [id number] ATTENDING PHYSICIAN: Ford Morgan MD DATE OF SERVICE: May 17, 2019 This document has been created with the use of voice recognition technology. It may contain inaccuracies, misspellings, inaccurate syntax or inappropriate word context that escaped review. Dear Dr. Ford Morgan MD [address] [place], [place] [id number] here is an update on a follow [...] do not hesitate to contact me at [phone]. Ford Morgan MD Hematology/Medical Oncology [facility] [place] CC: Shaw Jorgensen Referring Provider: FORD MORGAN) [[id number]] Allergies As of Date: 05/17/2019 (No Known [...] FORD MORGAN MD on 05/17/19 Normal [facility] PROGRESSon 05-17-2019 PROGRESS HNO ID: [id number] Author: Ford Morel) Cathy Service: ? Author Type: Physician Type: Progress Notes Filed: 05/17/2019 2:07 PM Note Text: PATIENT NAME: Loyda Adame [facility] NO.: [id number] ATTENDING PHYSICIAN: Ford Morgan MD DATE OF SERVICE: May 17, 2019 This document has been created with the use of voice recognition technology. It may contain inaccuracies, misspellings, inaccurate syntax or inappropriate word context that escaped review. Dear Dr. Ford Morgan MD [address] [place] [address] here is an update on a follow [...] do not hesitate to contact me at [phone]. Ford Morgan MD Hematology/Medical Oncology [facility] CC: Shaw Jorgensen Normal [facility] APTTon 05-10-2019 aPTT Coag (Bld) [Time] 27.1 s Normal 23.0-32.4 [facility] Comment on above: Result Comment: Unfr actionated [...] laboratory APTT reagent in use throughout the [facility]. Performed By: #### P RSCLT, PTT, PT, PRCFUN #### [facility] [address] [place], [place] [address] Protein C Functionalon 05-10 Protein [Mass/Vol] 89 % Normal 76-147 [facility] Comment on above: Performed By: #### P RSCLT, PTT, PT, PRCFUN #### [facility] [address] [place], [place] [address] Protein S Clottableon 2019 Protein S Clottable 58 % Low 59-131 [facility] Comment on above: Result Comment: [...] #### P RSCLT, PTT, PT, PRCFUN #### [facility] [address] [place], [place] [id number] Protimeon 05-10-2019 PT Coag (PPP) [Time] 10.2 s Normal 9.7-13.0 [facility] Comment on above: Performed By: #### P RSCLT, PTT, PT, PRCFUN #### [facility] [address] [place], [place] [address] PT Coag (PPP) [Time] 0.9 s Normal 0.9-1.3 [facility] Comment on above: Result Comment: Maria D min K Antagonist (VKA) Therapeutic Range: INR 2 to 3 (Target INR of 2.5) Note: For patients treated with VKA drugs, such as warfarin, the [place] [employer] 2012 Guideline recommends [...] Chest 2012, 141:7S-47S Deo RA, et al. [facility] 2017, 70: 252-289 Performed By: #### P RSCLT, PTT, PT, PRCFUN #### [facility] [address] [place], [place] [address] CNOVSPon 04-12-2019 CNOVSP Visit (SP) Office ([place]) LOYDA ADAME ([id number]) 2000 F Date Time Provider Department 04/12/19 4:15 PM FORD MORGAN) IFTIKHAR During your visit today, we recorded the following information about you: Temperature Pulse Respiration Blood pressure 97.8 degrees 90/minute 18/minute 119/74 Weight Height 56.7 kg 1.632 m Ford Morgan MD 04/12/2019 4:48 PM Signed PATIENT NAME: Loyda Adame CLINIC NO.: [id number] ATTENDING PHYSICIAN: Ford Morgan MD DATE OF [...] Ford Morgan M.D. 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] Order(s):ACTIVATED PTT [SQPTT] Order #: [id number] FUTURE PROTHROMBIN TIME/PT [SQPT] Order #: [id number] FUTURE TUBES - DRAW EXTRA [SQXTUBE] Order #: [id number] FUTURE PROTEIN C FUNCT [SQPRCFUN] Order #: [id number] FUTURE PROTEIN S CLOTTABLE [SQPRSCLT] Order #: [id number] FUTURE Follow-up and Disposition History Recorded Prescriptions as of 04/12/2019 Sig: NORGESTIMATE 0.25 MG-ETHINYL * Take 1 tablet by mouth once d* Problem List As Of Date: 04/12/2019 (None) Encounter Status:Closed by FORD MORGAN MD on 04/12/19 Normal [facility] PROGRESSon 04-12-2019 PROGRESS HNO ID: [id number] Author: Ford Morel) Cathy Service: ? Author Type: Physician Type: Progress Notes Filed: 04/12/2019 4:48 PM Note Text: PATIENT NAME: Loyda Adame [facility] NO.: [id number] ATTENDING PHYSICIAN: Ford Morgan MD DATE OF [...] Ford Morgan M.D. Hematology/Medical Oncology [facility] [place] [phone] CC: Normal [facility] Vital Signs Date Time Vital Sign Value Performing Clinician Facility 09-27-2024 11:12-0400 Body mass index (BMI) [Ratio] 27.22 kg/m2 Tran Gomez PA Work Phone: [facility] 09-27-2024 11:12-0400 Body weight 74.21 kg Tran Gomez PA Work Phone: [facility] 09-27-2024 11:12-0400 Diastolic blood pressure 82 mm[Hg] Tran Gomez PA Work Phone: [facility] 09-27-2024 11:12-0400 Systolic blood pressure 116 mm[Hg] Tran Gomez PA Work Phone: [facility] 08-29-2024 14:46-0400 Body mass index (BMI) [Ratio] 26.21 kg/m2 Rosalva Anitha DO Work Phone: [facility] 08-29-2024 14:46-0400 Body weight 71.44 kg Rosalva Anitha DO Work Phone: [facility] 08-29-2024 14:46-0400 Diastolic blood pressure 72 mm[Hg] Rosalva Anitha DO Work Phone: [facility] 08-29-2024 14:46-0400 Systolic blood pressure 114 mm[Hg] Rosalva Anitha DO Work Phone: [facility] 04-11-2024 13:50-0500 Blood Pressure Location Israel POND [facility] [place] 04-11-2024 13:50-0500 Diastolic blood pressure 74 mm[Hg] Israel POND [facility] 04-11-2024 13:50-0500 Heart rate 87 /min Israel POND [facility] 04-11-2024 13:50-0500 Respiratory rate 16 /min Israel POND [facility] 04-11-2024 13:50-0500 Systolic blood pressure 106 mm[Hg] Israel MALLORYL [facility] 12-31-2023 08:48-0400 Blood Pressure Location Israel MALLORYL [facility] 12-31-2023 08:48-0400 Diastolic blood pressure 87 mm[Hg] Israel MALLORYL [facility] 12-31-2023 08:48-0400 Heart rate 81 /min Israel MALLORYL [facility] 12-31-2023 08:48-0400 Respiratory rate 16 /min Israel MALLORYL [facility] 12-31-2023 08:48-0400 Systolic blood pressure 120 mm[Hg] Israel MALLORYL [facility] Encounters Encounter Date Encounter Type Care Provider Facility Start: 09-27-2024 End: 09-27-2024 Patient encounter procedure Tran WESTFALL Work Phone: [facility] Start: 09-27-2024 End: 09-27-2024 Periodic preventive med est patient 18-39 yrs Tran WESTFALL Work Phone: [facility] Comment on above: Second trimester pre gnancy ([facility]); 25 weeks gestation of ([facility]); STD exposure; Well woman exam with routine gynecological exam; Diabetes mellitus screening Start: 09-26-2024 End: 09-26-2024 Clinisync Result Encounter Rosalva Anitha DO Work Phone: [facility] Unsolicited Start: 09-26-2024 End: 09-26-2024 Clinisync Result Encounter Rosalva Anitha DO Work Phone: [facility] Unsolicited Start: 08-29-2024 End: 08-29-2024 Office outpatient visit [...] ANITHA Not Available Start: 07-24-2024 ambulatory Israel POND Facility:[facility] Start: 04-11-2024 End: 04-11-2024 ambulatory Israel R SHAWNEEL [facility] Start: 04-11-2024 End: 04-11-2024 Patient encounter procedure Israel R NILL [facility] [place] Start: 03-24-2024 ambulatory Israel NILL Facility:[facility] [place] Start: 02-01-2024 End: 02-01-2024 Patient encounter procedure Ki Lock DO Work Phone: [facility] Comment on above: Encounter for drug s creening Start: 02-01-2024 End: 02-01-2024 ambulatory ROSALVA ANITHA Not Available Start: 01-14-2024 End: 01-14-2024 ambulatory Anatoly PARK Facility:[facility] Start: 12-31-2023 End: 12-31-2023 ambulatory Shaw Jorgensen Facility: [place] Start: 12-31-2023 End: 12-31-2023 Patient encounter procedure Israel POND [facility] [place] Start: 12-25-2023 ambulatory Israel POND Facility:[facility] Start: 09-07-2023 End: 09-07-2023 ambulatory ROSALVA WELSH Not Available Start: 05-05-2023 End: 05-05-2023 Phys/qhp telephone evaluation 5-10 min Rosalva Welsh DO Work Phone: [facility] Comment on above: Encounter to discuss test results Start: 07-15-2022 End: 07-16-2022 ambulatory KHLOE GARCIA Facility:[facility] Start: 02-04-2022 End: 02-05-[address] ROSALVA WELSH . Facility:[facility] Start: 10-29-2021 Encounter for preprocedural laboratory examination DR ROSALVA WELSH . [facility] Start: 10-25-2021 End: 10-25-[address] ROSALVA WELSH . Facility:[facility] Start: 10-23-2021 End: 10-24-[address] ROSALVA WELSH . Facility:[facility] Start: 10-23-2021 End: 10-24-2021 Encounter for preprocedural laboratory examination DR ROSALVA WELSH . Facility:[facility] Start: 10-22-2021 Encounter for other preprocedural examination DR ROSALVA WELSH . [facility] Start: 10-17-2021 End: 10-18-[address] ROSALVA WELSH . Facility:[facility] Start: 10-17-2021 End: 10-18-2021 Encounter for other preprocedural examination DR ROSALVA WELSH . Facility:[facility] Start: 10-09-2021 End: 10-10-[address] ROSALVA WELSH . Facility:[facility] Start: 10-08-2021 End: 10-09-[address] ROSALVA WELSH . Facility: Procedures Date Procedure Procedure Detail Performing Clinician Start: 09-27-2024 Urnls dip stick/tabl et rgnt non-auto w/o micrscp Tran WESTFALL Work Phone: Start: 09-26-2024 US OB INCOMPLETE ANATOMY Rosalva Anitha DO Work Phone: Start: 08-29-2024 Urnls dip stick/tabl et rgnt non-auto w/o micrscp Rosalva Anitha DO Work Phone: Start: 08-08-2024 TB DRUG SCREEN RAPI D (URINE) Rosalva Lio DO Work Phone: Start: 08-05-2024 ALL CBC WITH AUTO DIFF Rosalva Welsh DO Work Phone: Laparoscopy Israel MALLORYCamelia Removal of foreign b jasmyn from foot Israel DEJAH Tonsillectomy and adenoidectomy Israel MALLORYCamelia Plan of Treatment Date Care Activity Detail Author Start: 11-28-2024 Influenza vaccination [facility] Start: 10-20-2024 End: 10-20-2024 Patient encounter procedure 10/20/2024 10:50 AM EDT Routine [facility] [address] [place] [address] Rosalva Welsh, DO [address] [place] [address] [facility] Start: 09-27-2024 End: 09-27-2025 CBC panel - Blood by Automated count CBC Lab Routine Diabetes mellitus screening Expected: 09/27/2024 (Approximate), Expires: 09/27/2025 [facility] Comment on above: Expected: 09/27/2024 (Approximate), Expires: 09/27/2025 Start: 09-27-2024 End: 09-27-2025 Measurement of glucose 1 hour after glucose challenge for glucose tolerance test Glucose tolerance, 1 hour Lab Routine Diabetes mellitus screening Expected: 09/27/2024 (Approximate), Expires: 09/27/2025 [facility] Comment on above: Expected: 09/27/2024 (Approximate), Expires: 09/27/2025 Start: 09-27-2024 End: 09-27-2024 Patient encounter procedure 09/27/2024 10:30 AM EDT Routine [facility] [address] [place] [place] [phone] Tran Gomez PA [address] [place], [place] [id number] [facility] Start: 08-29-2024 End: 08-29-2024 Patient encounter procedure 08/29/2024 2:30 PM EDT Routine [facility] [address] [place] [place] [phone] Rosalva Welsh DO [address] [place] [address] [facility] Start: 08-29-2024 End: 08-29-2024 Professional / ancillary services management 08/29/2024 1:00 PM EDT Ancillary Procedure [facility] [address] [place] [place] [phone] [facility] Start: 08-05-2024 End: 08-05-2025 ABO/Rh ABO/Rh Lab Routine Missed menses , unspecified gestational age Expected: 08/05/2024 (Approximate), Expires: 08/05/2025 [facility] Comment on above: Expected: 08/05/2024 (Approximate), Expires: 08/05/2025 Start: 08-05-2024 End: 10-05-2024 Alpha fetoprotein, maternal Alpha fetoprotein, maternal Lab Routine , unspecified gestational age Expected: 08/05/2024 (Approximate), Expires: 10/05/2024 [facility] Comment on above: Expected: 08/05/2024 (Approximate), Expires: 10/05/2024 Start: 08-05-2024 End: 08-05-2025 Blood type and Indirect antibody screen panel - Blood Type and screen Lab Routine Missed menses , unspecified gestational age Expected: 08/05/2024 (Approximate), Expires: 08/05/2025 [facility] Work Phone: Comment on above: Expected: 08/05/2024 (Approximate), Expires: 08/05/2025 Start: 08-05-2024 End: 08-05-2025 Drugs of abuse panel - Urine by Screen method Rapid drug screen, urine Lab Routine , unspecified gestational age Encounter for supervision of normal first in first trimester Expected: 08/05/2024 (Approximate), Expires: 08/05/2025 [facility] Comment on above: Expected: 08/05/2024 (Approximate), Expires: 08/05/2025 Start: 08-05-2024 End: 11-05-2024 US for US OB 14+ weeks anatomy scan Imaging Routine Screening, , for anatomic survey Expected: 08/05/2024, Expires: 11/05/2024 [facility] Comment on above: Expected: 08/05/2024 , Expires: 11/05/2024 Start: 05-19-2024 End: 05-19-2024 Patient encounter procedure 05/19/2024 3:55 PM EST Office Visit [facility] [address] [place] [phone] Rafaela Encarnacion APRN-IRRIGATOR [address] [place] [address] [facility] Start: 12-15-2023 End: 12-15-2023 Patient encounter procedure 12/15/2023 11:00 AM EDT Office Visit [facility] [address] [place] [phone] Rosalva Welsh DO [address] [place] [address] [facility] Start: 11-29-2023 Influenza vaccination Influenza Vacc ine (#1) [facility] Start: 05-11-2023 End: 05-11-2023 Patient encounter procedure 05/11/2023 4:05 PM EST Office Visit [facility] [address] [place] [phone] Rafaela Encarnacion, CARTON FILLER-IRRIGATOR [address] [place] [address] [facility] Start: 11-28-2022 Influenza vaccination Influenza Vacc ine (#1) [facility] Bacteria identified in Urine by Culture Urine culture Microbiology Routine Missed menses Ordered: 08/05/2024 [facility] Comment on above: Ordered: 08/05/2024 CBC W Auto Different ial panel - Blood CBC and differential Lab Routine Missed menses , unspecified gestational age Ordered: 08/05/2024 [facility] Comment on above: Ordered: 08/05/2024 CHLAMYDIA TRACHOMATI S (GENITO/STI) CHLAMYDIA TRACHOMATIS (GENITO/STI) Lab Routine STD exposure Ordered: 09/27/2024 [facility] Comment on above: Ordered: 09/27/2024 Cytology Cervical or vaginal smear or scraping study Pap Smear Pathology and Cytology Routine Well woman exam with routine gynecological exam Ordered: 09/27/2024 [facility] Work Phone: Comment on above: Ordered: 09/27/2024 Hemoglobin A1c/Hemoglobin.total in Blood Hemoglobin A1c Lab Routine Missed menses , unspecified gestational age Ordered: 08/05/2024 [facility] Comment on above: Ordered: 08/05/2024 Hepatitis B virus surface Ag [Presence] in Serum or Plasma by Immunoassay Hepatitis B surface antigen Lab Routine Missed menses , unspecified gestational age Ordered: 08/05/2024 [facility] Comment on above: Ordered: 08/05/2024 Hepatitis C virus Ab [Presence] in Serum or Plasma by Immunoassay Hepatitis C antibody Lab Routine Missed menses , unspecified gestational age Ordered: 08/05/2024 [facility] Comment on above: Ordered: 08/05/2024 HIV-1/HIV-2 antigen/antibody combination immunoassay HIV-1 and HIV-2 antibodies Lab Routine Missed menses , unspecified gestational age Ordered: 08/05/2024 [facility] Comment on above: Ordered: 08/05/2024 Neisseria gonorrhoea e DNA [Presence] in Unspecified specimen by BINU with probe detection Neisseria gonorrhea DNA probe, direct Lab Routine STD exposure Ordered: 09/27/2024 [facility] Comment on above: Ordered: 09/27/2024 Reagin Ab [Presence] in Serum by RPR RPR Lab Routine Missed menses , unspecified gestational age Ordered: 08/05/2024 [facility] Comment on above: Ordered: 08/05/2024 Rubella antibody, IgG Rubella an tibody, IgG Lab Routine Missed menses , unspecified gestational age Ordered: 08/05/2024 [facility] Comment on above: Ordered: 08/05/2024 SURESWAB(R) ADVANCED VAGINITIS PLUS, TMA SURESWAB(R) ADVANCED VAGINITIS PLUS, TMA Pathology and Cytology Routine STD exposure Ordered: 09/27/2024 [facility] Comment on above: Ordered: 09/27/2024 Immunizations Immunization Date Immunization Notes Care Provider [facility] 03-10-2022 SARS-CoV-2 (COVID-19 ) [id number] Israel POND [facility] 01-09-2022 influenza virus vaccine, unspecified formulation Rosalva Welsh Work Phone: [facility] 09-07-2020 SARS-CoV-2 (COVID-19 ) mRNA BNT-162b2 [employer] POND [facility] Comment on above: Result Comment: 2023: TPVAL 08-17-2020 SARS-CoV-2 (COVID-19 ) mRNA BNT-162b2 [employer] [facility] Comment on above: Result Comment: 2023: TPVAL Payers Date Payer Category Payer Private Health Insurance [facility] MEDICAID [id number] 2024 Medicaid [id number] 2023 Unknown [id number] 2022 Unknown BCBS BCBS [id number] [id number] 2022-Present [phone] [address] [place] [address] [id number] 2022 Unknown [id number] 1999 Unknown [id number] 2.16840.1.978374.3.579.2. 593 1999 Unknown [id number] 2.16840.1.440139.3.579.2. 593 1999 Unknown [id number] 2.16.840.1.176333.3.579.2. 593 1999 Unknown [id number] 2.16.840.1.472404.3.579.2. 593 1999 Unknown [id number] 2.16840.1.650963.3.579.2. 593 1999 Unknown [id number] 2.16840.1.275992.3.579.2. 593 1999 Unknown [id number] 2.16840.1.224660.3.579.2. 727 1999 Unknown [id number] 2.16.840.1.323798.3.579.2. 727 1999 Unknown [id number] 2.16.840.1.568360.3.579.2. 1259 1999 Unknown [id number] 2.16.840.1.820216.3.579.2. 1259 1999 Unknown [id number] 2.16.840.1.038955.3.579.2. 1259 1999 Unknown [id number] 2.16.840.1.789899.3.579.2. 1259 1999 Unknown [id number] 2.16.840.1.843345.3.579.2. 1259 1999 Unknown [id number] 2.16.840.1.920721.3.579.2. 1259 1959 Self-pay 1960 Unknown [id number] Unknown [id number] 2.16.840.1.379214.3.579.2. 593 Social History Date Type Detail Facility Start: 09-03-2022 End: 04-11-2024 Tobacco smoking status NHIS Never smoked tobacco [facility] Start: 09-03-2022 Tobacco use and exposure Smokeless tobacco non-user [facility] Start: 04-22-2023 End: 08-05-2024 Alcohol intake Lifetime non-drinker (finding) [facility] Start: 04-22-2023 End: 09-07-2023 History of Social function [facility] Start: 04-22-2023 End: 09-07-2023 Tobacco use panel [facility] Start: 2000 Sex Assigned At Female [facility] Start: 08-27-2022 Gender identity Identifies as female gender (finding) [facility] Start: 08-27-2022 Sexual orientation Heterosexual (finding) [facility] Tobacco smoking status Former sm okeless tobacco user, quit more than 30 days ago [facility] Start: 04-19-2024 [facility] Goals Date Patient Goal Desired Activity /State Personal health goal Functional Status Date Assessment Result Facility 04-11-2024 Functional Status N/A [facility] 12-31-2023 Functional Status N/A [facility] Clinical Notes 10-25-2021 to 09-27-2024 MALOU Moreno - 09/27/2024 10:30 AM Nilay Garcia NP - 08/29/2024 2:30 PM Brad Dunn MA - 08/05/2024 11:00 AM Madison Jones MA - 02/01/2024 9:35 AM EST Note Date & Type Note Facility 09-27-2024 History of Present illness Narrative Reason for Appointment: Patient ID: Loyda Adame is a 24 y.o. female who presents for Routine Visit Patient presents today for Return OB appointment. MEDICATIONS Current Outpatient Medications Medication Instructions cetirizine (ZyrTEC) 10 MG tablet Every 24 hours DULoxetine (CYMBALTA) 60 mg, Daily Vit-Fe Fumarate-FA ( VITAMIN PO) Take by mouth ALLERGIES No Known Allergies PROBLEMS Active Ambulatory Problems Diagnosis Date Noted Pelvic pain in female 04/10/2023 Resolved Ambulatory Problems Diagnosis Date Noted No Resolved Ambulatory Problems Past Medical History: Diagnosis Date Abnormal uterine bleeding (AUB) Anxiety and depression Anxiety disorder DUB (dysfunctional uterine bleeding) Dysmenorrhea Endometriosis Menorrhagia Menstrual irregularity Nonsmoker Protein S deficiency ([facility]) HISTORY PAST MEDICAL HISTORY SOCIAL HISTORY Past Medical History: Diagnosis Date Abnormal uterine bleeding (AUB) Anxiety and depression Anxiety disorder DUB (dysfunctional uterine bleeding) Dysmenorrhea Endometriosis Menorrhagia Menstrual irregularity Nonsmoker Pelvic pain in female Protein S deficiency ([facility]HS-HCC) Social History Tobacco Use Smoking status: Never [...] negaitve TONSILLECTOMY 03/27/2010 WISDOM TOOTH EXTRACTION 01/26/2016 [place] teeth REVIEW OF SYSTEMS Review of Systems: Review of Systems Constitutional: Negative. HENT: Negative. Eyes: Negative. Respiratory: Negative. Cardiovascular: Negative. Gastrointestinal: Negative. Genitourinary: Negative. Musculoskeletal: Negative. Skin: Negative. Neurological: Negative. All other systems reviewed and are negative. Hematological: Negative. Endocrine: Negative. Allergic/Immunologic: Negative. OBJECTIVE Objective: Physical Exam Constitutional: Appearance: Normal appearance. She is well-developed and normal weight. Genitourinary: Vulva normal. Right Adnexa: not tender and no mass present. Left Adnexa: not tender and no mass present. No cervical discharge. Breasts: Breasts are soft. Right: Normal. Left: Normal. HENT: Head: Normocephalic. Nose: Nose normal. Mouth/Throat: Mouth: Mucous membranes are moist. Cardiovascular: Rate and Rhythm: Normal rate and regular rhythm. Pulses: Normal pulses. Pulmonary: Effort: Pulmonary effort is normal. Breath sounds: Normal breath sounds. Abdominal: General: Bowel sounds are normal. There is no distension. Palpations: Abdomen is soft. Tenderness: There is no abdominal tenderness. There is no guarding or rebound. Musculoskeletal: General: No swelling. Normal range of motion. Cervical back: Normal range of motion. Right lower leg: No edema. Left lower leg: No edema. Neurological: General: No focal deficit present. Mental Status: She is alert and oriented to person, place, and time. Skin: General: Skin is warm and dry. Psychiatric: Mood and Affect: Mood normal. Behavior: Behavior normal. Thought Content: Thought content normal. Judgment: Judgment normal. Vitals and nursing note reviewed. Exam conducted with a cow rider present. Vitals: Estimated body mass index is 26.21 kg/m as calculated from the following: Height as of 08/03/23: 5' 5 . Weight as of 08/29/24: 157 lb 8 oz. BP: No LMP recorded (lmp unknown). Patient is . ASSESSMENT & PLAN ICD-10-CM 1. Second trimester ([facility]) Z34.92 POCT urinalysis dipstick manually resulted 2. 25 weeks gestation of ([facility]) Z3A.25 3. STD exposure Z20.2 SURESWAB(R) ADVANCED VAGINITIS PLUS, TMA CHLAMYDIA TRACHOMATIS (GENITO/STI) Neisseria gonorrhea DNA probe, direct 4. Well woman exam with routine gynecological exam Z01.419 Pap Smear 5. Diabetes mellitus screening Z13.1 CBC Glucose tolerance, 1 hour CBC Glucose tolerance, 1 hour Return OB/Annual Exam: Patient presents today for a annual exam/routine obstetrics appointment. Patient is currently 24w0d . Patient states she is doing well but has complaints of nausea in the morning. Pap and cultures was obtained without difficulty. Orders Placed This Encounter Procedures CHLAMYDIA TRACHOMATIS (GENITO/STI) Neisseria gonorrhea DNA probe, direct CBC Glucose tolerance, 1 hour POCT urinalysis dipstick manually resulted Follow Up: Patient is to schedule annual exam for next year and return to office in 4 weeks for OB appointment. Documented by Vaishali Villagomez LPN on behalf of: MALOU Moreno documented in this encounter [facility] 08-29-2024 History of Present illness Narrative Reason [...] negaitve TONSILLECTOMY 03/27/2010 WISDOM TOOTH EXTRACTION 01/26/2016 [place] teeth REVIEW OF SYSTEMS Review of Systems: [...] nursing note reviewed. Exam conducted with a cow rider present. Vitals: Estimated body mass index is [...] Rosalva Welsh DO documented in this encounter [facility] 08-05-2024 History of Present illness Narrative Reason [...] negaitve TONSILLECTOMY 03/27/2010 WISDOM TOOTH EXTRACTION 01/26/2016 [place] teeth No Known Allergies Vitals: Estimated body [...] or undercooked meat, and stay away from [facility]. Patient has also been advised to [...] Marlene Dunn MA documented in this encounter [facility] 02-01-2024 History of Present illness Narrative Pt presents today for a pre-employment 5 panel drug screen for [employer]. Pt verified by photo ID. documented in this encounter [facility] 12-31-2023 Evaluation + Plan note Diagnostic Tests PendingHepatic Function Panel 12/31/23 [facility] 12-31-2023 Note General Surgery Offi ce/Clinic Note [...] Immunizations Vaccine Date Status Comments SARS-CoV-2 (COVID-19) [id number].[id number] 03/10/2022 Recorded SARS-CoV-2 (COVID-19) mRNA BNT-162b2 vax 09/07/2020 Recorded 2023-12-25: TPVAL SARS-CoV-2 (COVID-19) m (more content not included)... [facility] Comment on above: Result Comment: Elec tronically Signed By: DEJAH ARDON, [place]\Date and Time Signed: 12/31/23 09:48 EDT 05-05-2023 History of Present illness Narrative Reason for Appointment: Patient ID: Loyda Adame is a 23 y.o. female who presents for Results Patient presents today via telephone call for a telehealth appointment. Patients Phone #: [phone] (mobile) Current Medications: has a current medication [...] negaitve TONSILLECTOMY 03/27/2010 WISDOM TOOTH EXTRACTION 01/26/2016 [place] teeth No Known Allergies Vitals: Estimated body [...] Rosalva Welsh DO documented in this encounter [facility] 10-25-2021 Note OPERATIVE NOTE OPERATION DATE: 11/01/2021 PROCEDURE: Diagnostic laparoscopy with chromopertubation. PREOPERATIVE DIAGNOSIS: 1. Pelvic pain. 2. Possible tubal dysfunction. POSTOPERATIVE DIAGNOSIS: 1. Pelvic pain. 2. Possible tubal dysfunction. ANESTHESIA: General. SURGEON: Rosalva Welsh D.O. MARKET SURVEY REPRESENTATIVE: DUC Sherman URINE OUTPUT: Yellow and clear. [...] to Recovery Room in stable condition [facility] Evaluation note Diagnosis Encounter to discuss test results Other specified counseling documented in this encounter [facility] HealthcareEvaluation note* Diagnosis Encounter for drug screening documented in this encounter [facility] HealthcareEvaluation note* Diagnosis Missed menses , unspecified gestational age Encounter for supervision of normal first in first trimester Screening, , for anatomic survey Encounter for anatomic survey documented in this encounter [facility] HealthcareEvaluation note* Diagnosis Second trimester state, incidental 20 weeks gestation of documented in this encounter [facility] HealthcareEvaluation note* Diagnosis Second trimester (HHS-HCC) state, incidental 25 weeks gestation of (HHS-HCC) STD exposure Well woman exam with routine gynecological exam Routine gynecological examination Diabetes mellitus screening Screening for diabetes mellitus [facility] N[facility] No data available for this section [facility] Discharge instructions No data available for this section [facility] Progress note No data available for this section [facility] Summary Purpose Family History No Family History [...] and content) DATE CREATED AUTHOR 05/18/2019 [facility] DATE CREATED AUTHOR AUTHOR'S ORGANIZ ATION 07/20/2022 [facility] DATE CREATED AUTHOR AUTHOR'S ORGANIZ ATION 07/24/2024 She[facility] Comal [facility] DATE CREATED AUTHOR AUTHOR'S ORGANIZ ATION 08/31/2024 [facility] EPIC Reason for Visit (unrecogniz ed section and content) Reason Comments Results Reason Comments Amenorrhea Reason Comments Routine Visit Care Teams (unrecognized sec tion and content) Sleeve Ironer Relationship Specialty Start Date End Date Shaw Jorgensen MD [address] [place] [address] PCP - General Family Medicine 09/03/22 Sleeve Ironer Relationship Specialty Start Date End Date Shaw Jorgensen MD [address] [place] [address] PCP - General Family Medicine 09/03/22 Sleeve Ironer Relationship Specialty Start Date End Date Shaw Jorgensen MD [address] [facility] PCP - General Family Medicine 09/03/22 Sleeve Ironer Relationship Specialty Start Date End Date Shaw Jorgensen MD [address] [facility] [place] [address] PCP - General Family Medicine 09/03/22 Sleeve Ironer Relationship Specialty Start Date End Date Shaw Jorgensen MD [address] [facility] [place] [address] PCP - General Family Medicine 09/03/22 Sleeve Ironer Relationship Specialty Start Date End Date Shaw Jorgensen MD [address] [place] [address] PCP - General Family Medicine 09/03/22 Sleeve Ironer Relationship Specialty Start Date End Date Shaw Jorgensen MD [address] [facility] [place] [address] PCP - General Family Medicine 09/03/22 FOR [...] BE BASED ON THE PRIMARY CLINICAL RECORDS. [employer] provides no warranty or guarantee of the accuracy or completeness of information in this document.
[2024-10-03 15:08] LABS: Age Gdln ACOG Testing Note (.); IGP, rfx Aptima HPV ASCU Note (.)
== END 2024-09-27 19:13 | disposition home or self-care (01) ==
LOC: LAB 19:12
PROVIDERS: PCP Family Medicine; Visit Provider Physician Assistant
DX: Z01.419 Encounter for gynecological examination (general) (routine) without abnormal findings (principal)
CPT/HCPCS: 88175

== ENCOUNTER 2024-10-20 07:13 | Outpatient (OUT) | payer OTHER, SELFPAY ==
--- OUTSIDE RECORDS SUMMARY | 2024-05-04 03:51 | XMS_ITS ---
Author Organization [facility] [place] Address [address] [place] [address] Care Team Providers Care Layer Out Name Role Phone Usman Jorgensen Primary Care Provider Encounters Encounter Location Date Provider Diagnosis [facility] [address] [place] [address] 05/04/2024 Usman Jorgensen Plan Of Treatment No Information Progress Notes * Loyda GIBSONDOB: 9 (24 yo F)Acc No.[id number]:05/04/2024 Patient: Loyda BAHENA :2000 A ge:24 Y S ex:Female Address:[address] [place] [address], [phone] * true * Date: Generated for Printi ng/Faxing/eTransmitting on: 0 10/20/2024 07:15 AM EDT
--- OUTSIDE RECORDS SUMMARY | 2024-05-31 07:30 | XMS_ITS ---
Author Organization [facility] in [place] Address [address] [place] [address] Care Team Providers Care Packaging Operator Name Role Phone Usman Jorgensen Primary Care Provider [phone] Jeanine Pablo Unavailable [phone] Allergies No Known Allergies Results Component Value Reference Range Notes PREG QUANT HCG Reviewed date:05/31/2024 03:52:35 PM Interpretation: Performing Lab: Notes/Report: [facility] , HCG Quantitative 25683 5-50 0.2-1 WEEK 50-500 1-2 WEEKS 100-5,000 2-3 WEEKS 500-10,000 3-4 WEEKS 1,000-50,000 4-5 WEEKS 10,000-100,000 5-6 WEEKS 15,000-200,000 6-8 WEEKS 10,000-100,000 2-3 MONTHS Performing Lab: see note ML - [facility] COVID-19, Flu A+B IH Reviewed date:08/05/2024 01:06:37 PM Interpretation: Performing Lab: Notes/Report: COVID - FLU A - FLU B - Control + REASON FOR VISIT started feeling sick on thursday, symptoms are congestion, sore throat, sinus drainage, patient is and is asking for a hcg lab test Medications Medication SIG (Take, Route, Frequency, Duration) Notes Start Date End Date Status QUEtiapine Fumarate 50 MG TAKE 1 TABLETS BY MOUTH EVERY DAY for 90 days Active rOPINIRole HCl 5 MG TAKE 1 TABLET BY MALISSA TH EVERY DAY AT BEDTIME for 90 Active Protonix 40 MG 1 tablet Orally Once a day for 30 days 03/24/2024 Active Azelastine HCl 0.05 % 1 drop into affect ed eye Ophthalmic qd 03/31/2024 Active Cetirizine HCl 10 MG TAKE 1 TABLET BY MO UTH EVERY DAY for 90 Active Ondansetron 4 MG 1 tablet on the tong ue and allow to dissolve Orally Once a day for 30 days 12/09/2023 Active DULoxetine HCl 60 MG TAKE 2 CAPSULE BY M OUTH EVERY DAY Orally Once a day for 90 days Active Hyoscyamine Sulfate 0.125 MG 1-2 tabs SL SL every 4 hrs PRN abd pain 12/09/2023 Active Social History Tobacco Use: Social History Observation Description Date Details (start date - stop date) Never Smoker NA - NA Tobacco Use/Smoking Question Answer Notes Patient is a nonsmoker AUDIT-C (Standard) Question Answer Notes Did you have a drink contain ing alcohol in the past year? Yes How often did you have six o r more drinks on one occasion in the past year? Never (0 point) How many drinks did you have on a typical day when you were drinking in the past year? 1 or 2 drinks (0 point) How often did you have a dri nk containing alcohol in the past year? Monthly or less (1 point) Points 1 Interpretation Negative Vital Signs Temperature 98.1 degrees Fahrenheit 06/01/19 25 Blood pressure systolic 108 mm Hg 06/01/19 25 Blood pressure diastolic 62 mm Hg 025 Height 65 in 05/31/2024 Weight 161 lbs 05/31/2024 BMI 26.79 kg/m2 05/31/2024 Encounters Encounter Location Date Provider Diagnosis [address] [address] 05/31/2024 Jeanine Bev Cough R05.9 ; URI (upper respiratory infection) J06.9 and Z33.1 Assessments Encounter Date Diagnosis (ICD Code) Assessment Notes Treatment Notes Treatment Clinical Notes Section Notes 05/31/2024 Cough (ICD-10 - R05.9) 05/31/2024 URI (upper respiratory infection) (ICD-10 - J06.9) likely viral supportive care if not improving, worsens fu 05/31/2024 (ICD-10 - Z33.1) Plan Of Treatment Treatment Notes Assessment Notes URI (upper respiratory infection) likely viral supportive care if not improving, worsens fu Next Appt Details Follow Up: prn, Reason: Progress Notes * Loyda GIBSONDOB: 9 (24 yo F)Acc No.[id number]:05/31/2024 Progress Note Patient: Loyda BAHENA Provider: Annette Pablo ([facility]), ARACELI :2000 A ge:24 Y S ex:Female Date:05/31/2024 Address:[address] [place] [address] [place], [id number] Pcp:Usman Jorgensen Check In:11:33 AM ESTCheck O ut:11:50 AM EST Subjective: * Chief Complaints: * 1 . Started feeling sick on thursday, symptoms are congestion, sore throat, sinus drainage. 2. Patient is and is asking for a hcg lab test. * HPI: D epression Screening: PHQ-2 (2015 Edition) L ittle interest or pleasure in doing things??More than half the days F eeling down, depressed, or hopeless? M ore than half the days T otal Score 4 D epression Screening: PHQ-9 L ittle interest or pleasure in doing things?More than half the days F eeling down, depressed, or hopeless M ore than half the days T rouble falling or staying asleep, or sleeping too much S everal days F eeling tired or having little energy M ore than half the days P oor appetite or overeating M ore than half the days F eeling bad about yourself or that you are a failure, or have let yourself or your family down S everal days T rouble concentrating on things, such as reading the newspaper or watching television N ot at all M oving or speaking so slowly that other people could have noticed; or the opposite, being so fidgety or restless that you have been moving around a lot more than usual N ot at all T houghts that you would be better off or of hurting yourself in some way N ot at all T otal Score 1 0 I nterpretation M oderate Depression G eneral: ST sinus and chest congestion no cough bodyaches no headache no fever tylenol otc. * ROS: G eneral/Constitutional: Patient complaining of b jasmyn aches. F ever d enies.?Headache d enies. W eight loss d enies. O phthalmologic: Discharge d enies. E ye Pain d enies. I tching and redness d enies. E NT: Nasal discharge d enies. N jonah congestion a dmits. S ore throat a dmits. C ardiovascular: Chest tightness/ heavy pressure d enies. R apid heart rate d enies. S welling of extremities d enies. C hest pain d enies. ? R espiratory: Patient complaining of c hest congestion. P roductive cough d enies. C hest pain d enies. C ough d enies. S hortness of breath d enies. W heezing d enies. G astrointestinal: Abdominal pain d enies. C onstipation d enies. D ecreased appetite d enies. D iarrhea d enies. N ausea d enies. V omiting?denies. G enitourinary: Urinary incontinence d enies. P ainful urination d enies. M usculoskeletal: Back pain d enies. N tee pain d enies. M uscle aches d enies. S kin: Rash d enies. S kin lesion(s) d enies. ? * Active Problem List I95.1 Orthostatic hypotens ion Modified On:08/13/2022U Status:confirmed F32.9 Depression Modified On:08/13/2022U Status:confirmed F90.0 ADD (attention defic it disorder) Modified On:08/13/2022U Status:confirmed G47.00 Insomnia Modified On:06/16/2023U Status:confirmed E66.3 Over weight Modified On:08/13/2022U Status:confirmed J30.2 Allergic rhinitis, s easonal Modified On:08/13/2022U Status:confirmed N92.1 Menometrorrhagia Modified On:08/13/2022U Status:confirmed H81.399 Vertigo, peripheral Modified On:08/13/2022U Status:confirmed U07.1 COVID-19 Modified On:05/17/2023W/U Status:confirmed M41.9 Scoliosis Modified On:08/13/2022/U Status:confirmed L65.9 Hair loss Modified On:12/19/2022/U Status:confirmed R10.11 Right upper quadrant abdominal pain Modified On:12/09/2023/U Status:confirmed K80.20 Calculus of gallblad guillermo without cholecystitis without obstruction Modified On:12/23/2023W/U Status:confirmed * Medical History: O sheila weight, Depression, Allergic rhinitis, seasonal, Vertigo, peripheral, COVID- 19, Orthostatic hypotension, Menometrorrhagia, Insomnia, Scoliosis, ADD (attention deficit disorder). * Surgical History: L aproscopy 09/2021. * Family History: F ather: unknown. M other: unknown. S ister(s): alive. 3 sister(s) . . Patient is adopted. * Social History: T obacco Use: T obacco Use/Smoking P atient is a n onsmoker D rug/Alcohol: A FER-C (Standard) D id you have a drink containing alcohol in the past year? Y es H ow often did you have six or more drinks on one occasion in the past year? N ever (0 point) H ow many drinks did you have on a typical day when you were drinking in the past year? 1 or 2 drinks (0 point) H ow often did you have a drink containing alcohol in the past year? M onthly or less (1 point) P oints 1 I nterpretation N egative * Medications: T aking Azelastine HCl 0.05 % Solution 1 drop into affected eye Ophthalmic qd , Taking Cetirizine HCl 10 MG Tablet TAKE 1 TABLET BY MOUTH EVERY DAY , Taking DULoxetine HCl 60 MG Capsule Delayed Release Particles TAKE 2 CAPSULE BY MOUTH EVERY DAY Orally Once a day , Taking Hyoscyamine Sulfate 0.125 MG Tablet 1-2 tabs SL SL every 4 hrs PRN abd pain , Taking Ondansetron 4 MG Tablet Disintegrating 1 tablet on the tongue and allow to dissolve Orally Once a day , Taking Protonix(Pantoprazole Sodium) 40 MG Tablet Delayed Release 1 tablet Orally Once a day , Taking QUEtiapine Fumarate 50 MG Tablet TAKE 1 TABLETS BY MOUTH EVERY DAY , Taking rOPINIRole HCl 5 MG Tablet TAKE 1 TABLET BY MOUTH EVERY DAY AT BEDTIME , Medication List reviewed and reconciled with the patient * Allergies: N .K.D.A. Objective: * Vitals: W t:161lbs, Ht: 65 in, BP:108/62mm Hg, Temp:98.1F, BMI:26.79Index, Ht-cm: 165.1 cm, Wt-k.03 kg. * Examination: G eneral Examinations: GENERAL APPEARANCE: a lert and oriented, i n no acute distress. EYES: c onjunctiva normal, sclera non-icteric. EARS: e xternal auditory canals are patent. Tympanic membranes are pearly ho and mobile. NOSE: m ild congestion. THROAT: n ormal. LUNGS: c lear to auscultation bilaterally. CARDIO: r egular rate and rhythm, S1, S2 normal. MUSCULOSKELETAL: G ait and station normal. SKIN: w arm and dry. Assessment: * Assessment: 1. U RI (upper respiratory infection) - J06.9 (Primary) 2 . C ough - R05.9? 3. P regnancy - Z33.1 Plan: * Treatment: 2. C ough L AB: COVID-19, Flu A+B IH (Collection Date & Time - 05/31/2024) 3. P regnancy L AB: PREG QUANT HCG (Collection Date & Time - 05/31/2024 12:30 PM) * Labs: * L ab: COVID-19, Flu A+B IH (Collection Date & Time - 05/31/2024) Value Reference Range C OVID - * F REILLY A - * F REILLY B - * C ontrol + ?Lab: PREG QUANT HCG (Collection Date & Time - 05/31/2024 12:30 PM) * Procedure Codes: 8 7636 SARSCOV2 & INF A&B AMP PRB, Modifiers: QW * Preventive Medicine: Screenings/Counseling: B MN ACTION PLAN Above Normal BMI Follow-up D ietary management education, guidance, and counseling * Follow Up: p rn * * Electronically signed by Echo Pablo , BARBED WIRE MACHINE OPERATOR, SPECIAL PROJECTS COORDINATOR.BELT LINE [id number] on 06/02/2024 at 12:27 PM EST Sign off status: Completed Visit Status: C HK (Check Out) true * Provider: Annette Pablo ([facility]), BELT LINE FEEDER Date: 0 05/31/2024 Generated for Jyotikristin negron/Emmie/eTransmitting on: 0 10/20/2024 07:15 AM EDT History and Physical Notes * HPI (History of Present Illness) Category Sub-Category Detail Notes Category Not es Depression Screening PHQ-9 Little inte rest or pleasure in doing things: More than half the days Feeling down, depressed, or hopeless: Mo re than half the days Trouble falling or staying asleep, or sl eeping too much: Several days Feeling tired or having little energy: M ore than half the days Poor appetite or overeating: More than h lori the days Feeling bad about yourself o r that you are a failure, or have let yourself or your family down: Several days Trouble concentrating on thi ngs, such as reading the newspaper or watching television: Not at all Moving or speaking so slowly that other people could have noticed; or the opposite, being so fidgety or restless that you have been moving around a lot more than usual: Not at all Thoughts that you would be b baudilio off or of hurting yourself in some way: Not at all Total Score: 10 Interpretation: Moderate Depression General ST sinus and chest congestion no cough bodyaches no headache no fever tylenol otc Depression Screening PHQ-2 (2015 Edition) Little interest or pleasure in doing things?: More than half the days Feeling down, depressed, or hopeless?: M ore than half the days Total Score: 4 Examination Category Sub-Category Detail Notes Category Not es General Examinations GENERAL APPEARANCE: alert a nd oriented, in no acute distress EYES: conjunctiva normal, sclera non-icteric EARS: external auditory ca nals are patent. Tympanic membranes are pearly ho and mobile NOSE: mild congestion THROAT: normal CARDIO: regular rate and rhy thm, S1, S2 normal LUNGS: clear to auscultatio n bilaterally ABDOMEN: SKIN: warm and dry BACK: MUSCULOSKELETAL: Gait and station nor mal LYMPH NODES:
--- OUTSIDE RECORDS SUMMARY | 2024-05-31 11:51 | XMS_ITS ---
Author Organization The [facility] in [place] Address [address] [place] [address] Care Team Providers Care Merchandise Carrier Name Role Phone Usman Jorgensen Primary Care Provider [phone] Jeanine Nugent [phone] Encounters Encounter Location Date Provider Diagnosis [facility] [address] [place] [address] 05/31/2024 Jeanine Pablo Plan Of Treatment No Information Progress Notes * Loyda GIBSONDOB: 9 (24 yo F)Acc No.[id number]:05/31/2024 Patient: Loyda BAHENA :2000 A ge:24 Y S ex:Female Address:[address] [place] [address], [phone] Subjective: * Chief Complaints: * * Medical History: * Surgical History: * Hospitalization/Major Diagno stic Procedure: * Medications: Objective: * Vitals: * Physical Examination: Assessment: Plan: * Treatment: * Procedure Codes: * true * Date: Generated for Printi ng/Faxing/eTransmitting on: 0 10/20/2024 07:16 AM EDT
--- OUTSIDE RECORDS SUMMARY | 2024-10-20 07:16 | XMS_ITS | Encounter Summary ---
Author Organization [facility] Address [address] [place] [address] Care Team Providers Care Delicatessen Goods Stock Clerk Name Role Phone Shaw Jorgensen MD Primary Care Provider [phone] Encounter Details Date Type Department Care Team (Late st Contact Info) Description 08/30/2024 Abstract [facility] [address] [place] [address] Aden Welsh, DO [address] [place] [address] Social History Tobacco Use Types Packs/Day Years [...] Care Team (Late st Contact Info) Description 10/20/2024 10:50 AM EDT Routine [facility] [address] [place] [phone] Aden Welsh DO [address] [place], [place] [id number] documented as of this encounter Visit Diagnoses Not on filedocumented in this encounter Care Teams Delicatessen Goods Stock Clerk Relationship Specialty Start Date End Date Shaw Jorgensen MD [address] [facility] [place] [address] PCP - General Family Medicine 09/03/22 documented as of this encounter
--- OUTSIDE RECORDS SUMMARY | 2024-10-20 07:16 | XMS_ITS | Encounter Summary ---
Author Organization [facility] Address [address] [place] [address] Care Team Providers Care Lining Sewer Name Role Phone Shaw Jorgensen MD Primary Care Provider [phone] Encounter Details Date Type Department Care Team (Late st Contact Info) Description 08/16/2024 Abstract [facility] [address] [facility] [place] [address] Aden Welsh, DO [address] [place] [address] Social History Tobacco Use Types Packs/Day Years [...] AM EDT Routine [facility] [address] [place] [phone] Aden Welsh DO [address] [place], [place] [id number] documented as of this encounter Visit Diagnoses Not on filedocumented in this encounter Care Teams Lining Sewer Relationship Specialty Start Date End Date Shaw Jorgensen MD [address] [facility] [place] [address] PCP - General Family Medicine 09/03/22 documented as of this encounter
--- OUTSIDE RECORDS SUMMARY | 2024-10-20 07:16 | XMS_ITS | Encounter Summary ---
Author Organization [facility] Address [address] [place] [address] Care Team Providers Care Subacute Nurse Name Role Phone Shaw Jorgensen MD Primary Care Provider [phone] Encounter Details Date Type Department Care Team (Latest Contact Info) Description 10/13/2024 Travel Social History Tobacco Use Types Packs/Day [...] Department Care Team ( Contact Info) Description 10/20/2024 10:50 AM EDT Routine [facility] [address] [facility] [place] [place] [phone] Aden Welsh, DO [address] [place], [place] [id number] documented as of this encounter Goals Goal Patient Goal Type Associated Problems Recent Progress Patient-Stated? Author Reminders Care Plan OB Reminders No Open Scheduling, Background documented as of this encounter Visit Diagnoses Not on filedocumented in this encounter Additional Health Concerns Active Problems Noted Date Diagnosed Date OB Reminders 09/20/2024 documented as of this encounter Care Teams Subacute Nurse Relationship Specialty Start Date End Date Shaw Jorgensen MD [address] [place] [address] PCP - General Family Medicine 09/03/22 documented as of this encounter
--- OUTSIDE RECORDS SUMMARY | 2024-10-20 07:16 | XMS_ITS | Clinical Summary ---
Author Organization [facility] Address [address] [place] [address] Care Team Providers Care Station Manager Name Role Phone Shaw Jorgensen MD Primary Care Provider [phone] Allergies No known active allergies Medications cetirizine (ZyrTEC) 10 MG tablet 1 (one) time each day at the same time. Active DULoxetine (Cymbalta) [address] capsule Take 60 mg by mouth in the morning. Active Vit-Fe Fumarate-FA ( VITAMIN PO) Take by mouth Active metroNIDAZOLE (Flagyl) 500 MG tabletIndication s:BV (bacterial vaginosis) Take 1 tablet (500 mg) by mouth in the morning and 1 tablet (500 mg) before bedtime. Do all this for 7 days. Do not drink alcohol while taking this medication. 14 tablet 5 10/06/19 25 azithromycin (Zithromax) 500 MG tabletIndication s:Chlamydia trachomatis infection Take 2 tablets (1,000 mg) by mouth 1 time for 1 dose 2 tablet 5 09/29/19 25 Active Problems Problem Noted Date Diagnosed Date Pelvic pain in female 04/10/2023 Estimated Date of Delivery Comme nts Yes 01/10/2025 Based on Ultraso und Encounters Date Type Department Care Team Description 10/13/2024 Travel 10/05/2024 Orders Only [facility] OB [address] [place] [address] Mariana Bravo LPN 09/28/2024 Telephone [facility] [address] [place] [address] Tran Gomez PA 09/27/2024 10:30 AM EDT Routine [facility] [address] [place] [address] Tran Gomez PA Second trimester ([facility]); 25 weeks gestation of ([facility]); STD exposure; Well woman exam with routine gynecological exam; Diabetes mellitus screening 09/27/2024 Clinisync Result Encounter [facility] External Department Unsolicited Tran Gomez PA 09/27/2024 External Result Encounter [facility] External Department Unsolicited Tran Gomez PA 09/26/2024 Clinisync Result Encounter [facility] External Department Unsolicited Rosalva Welsh, 09/20/2024 Travel 09/05/2024 Telephone [facility] OB [address] [place] [address] Marlene Dunn MA 09/01/2024 Abstract [facility] [address] [place] [address] Rosalva Welsh, 08/30/2024 Abstract [facility] [address] [place] [address] Rosalva Welsh, 08/30/2024 Abstract [facility] [address] [place] [address] Rosalva Welsh, 08/29/2024 2:30 PM EDT Routine [facility] [address] [place] [address] Rosalva Welsh, Second trimester ([facility]); 20 weeks gestation of ([facility]) 08/29/2024 1:00 PM EDT Ancillary Procedure [facility] [address] [place] [address] Screening, , for anatomic survey ([facility]) 08/22/2024 Travel 08/16/2024 Abstract [facility] [address] [place] [address] Rosalva Welsh, DO 08/16/2024 Abstract [facility] [address] [place] [address] Rosalva Welsh, DO 08/15/2024 Abstract [facility] [address] [place] [address] Rosalva Welsh, DO 08/15/2024 Abstract [facility] [address] [place] [address] Rosalva Welsh, DO 08/08/2024 Clinisync Result Encounter NOMS External Department Unsolicited Rosalva Welsh, DO 08/08/2024 Abstract [facility] [address] [place] [address] Rosalva Welsh, DO 08/05/2024 11:00 AM EDT Initial [facility] OB [address] [place] [address] GA: 17w3d 08/05/2024 10:30 AM EDT Ancillary Procedure [facility] [address] [place] [address] Missed menses 08/05/2024 Clinisync Result Encounter [facility] External Department Unsolicited Rosalva Welsh, DO 08/05/2024 Travel 07/29/2024 Travel from Last [...] Sign Reading Time Taken Comments Blood Pressure 116/82 09/27/2024 11:12 AM EDT Pulse - - Temperature - - Respiratory Rate - - Oxygen Saturation - - Inhaled Oxygen Concentration - - Weight 74.2 kg (163 lb 9.6 oz) 09/27/2024 11:12 AM EDT Height 165.1 cm (5' 5 ) 08/03/2023 10:00 AM EDT Body Mass Index 27.22 08/03/2023 10:00 AM EDT Plan of Treatment Upcoming Encounters Date Type Department Care Team (Late st Contact Info) Description 10/20/2024 10:50 AM EDT Routine [facility] [address] [place] [address] Rosalva Welsh, DO [address] [place], [place] [id number] Health Maintenance Due Date Last Done Comments Influenza Vaccine (#1) 2024 2, 01/20/2019, 2018, Additional history exists Goals Goal Patient Goal Type Associated Problems Recent Progress Patient-Stated? Author Reminders Care Plan OB Reminders No Open Scheduling, Background Procedures Procedure Name Priority Date/Time Associated Diagnosis Comments RECURRENT VAGINITIS (HTRX) Routine 09/27/2024 12:14 PM EDT POCT URINALYSIS DIPSTICK Routine 09/27/2024 11:03 AM EDT Second trimester ([facility]) IGP,APTIMA HPV,AGE GDLN Routine 09/27/2024 10:45 AM EDT PAP SMEAR Routine 09/27/2024 12:00 AM EDT US OB INCOMPLETE ANATOMY 09/26/2024 10:13 AM EDT CULTURE, URINE, ROUTINE Routine 08/29/2024 4:26 PM EDT Missed menses POCT URINALYSIS DIPSTICK Routine 08/29/2024 2:51 PM EDT Second trimester ([facility]) US OB 14+ WEEKS ANATOMY SCAN Routine 08/29/2024 1:58 PM EDT Screening, , for anatomic survey ([facility]) [facility] DRUG SCREEN RAPID (URINE) Routine 08/08/2024 [...] menses from Last 3 Months Results * (ABNORMAL) RECURRENT VAGINITIS (HTRX) (09/27/2024 12:14 PM EDT) [facility] ATOPOBIUM VAGINAE 20.937(A) 19.961 - 24.689 ppm 09/28/2024 5:58 AM EDT [facility] ATOPOBIUM VAGINAE Detected(A) 19.961 - 24.689 ppm 09/28/2024 5:58 AM EDT [facility] BVAB 2,3 (BACTERIAL VAGINOSIS ASSOCIATED BACTERIA 2, 3); MOBILUNCUS SPP 0 19.961 - 24.689 ppm 09/28/2024 5:58 AM EDT [facility] BVAB 2,3 (BACTERIAL VAGINOSIS ASSOCIATED BACTERIA 2, 3); MOBILUNCUS SPP Not Detected 19.961 - 24.689 ppm 09/28/2024 5:58 AM EDT [facility] RENE ALBICANS, PARAPSILOSIS, TROPICALIS 0 19.961 - 30.770 ppm 09/28/2024 5:58 AM EDT [facility] RENE ALBICANS, PARAPSILOSIS, TROPICALIS Not Detected 19.961 - 30.770 ppm 09/28/2024 5:58 AM EDT [facility] RENE GLABRATA 0 23.000 - 32.138 ppm 09/28/2024 5:58 AM EDT [facility] RENE GLABRATA Not Detected 23.000 - 32.138 ppm 09/28/2024 5:58 AM EDT [facility] RENE KRUSEI 0 23.000 - 32.271 ppm 09/28/2024 5:58 AM EDT [facility] RENE KRUSEI Not Detected 23.000 - 32.271 ppm 09/28/2024 5:58 AM EDT [facility] CHLAMYDIA TRACHOMATIS 26.087(A) 23.000 - 31.467 ppm 09/28/2024 5:58 AM EDT [facility] CHLAMYDIA TRACHOMATIS Detected(A) 23.000 - 31.467 ppm 09/28/2024 5:58 AM EDT [facility] GARDNERELLA VAGINALIS 18.175(A) 19.961 - 24.689 ppm 09/28/2024 5:58 AM EDT [facility] GARDNERELLA VAGINALIS Detected(A) 19.961 - 24.689 ppm 09/28/2024 5:58 AM EDT [facility] MEGASPHAERA (TYPES 1, 2) 17.801(A) 19.961 - 24.689 ppm 09/28/2024 5:58 AM EDT [facility] MEGASPHAERA (TYPES 1, 2) Detected(A) 19.961 - 24.689 ppm 09/28/2024 5:58 AM EDT [facility] NEISSERIA GONORRHOEAE 0 23.000 - 32.117 ppm 09/28/2024 5:58 AM EDT [facility] NEISSERIA GONORRHOEAE Not Detected 23.000 - 32.117 ppm 09/28/2024 5:58 AM EDT [facility] TRICHOMONAS VAGINALIS 0 23.000 - 32.119 ppm 09/28/2024 5:58 AM EDT [facility] TRICHOMONAS VAGINALIS Not Detected 23.000 - 32.119 ppm 09/28/2024 5:58 AM EDT [facility] MYCOPLASMA GENITALIUM 0 19.961 - 24.689 ppm 09/28/2024 5:58 AM EDT [facility] MYCOPLASMA GENITALIUM Not Detected 19.961 - 24.689 ppm 09/28/2024 5:58 AM EDT [facility] ERMB, C; MEFA 16.837(A) 23.000 - 27.611 ppm 09/28/2024 5:58 AM EDT [facility] ERMB, C; MEFA Detected(A) 23.000 - 27.611 ppm 09/28/2024 5:58 AM EDT [facility] TET B, TET M 18.436(A) 23.000 - 27.778 ppm 09/28/2024 5:58 AM EDT [facility] TET B, TET M Detected(A) 23.000 - 27.778 ppm 09/28/2024 5:58 AM EDT [facility] Tissue 09/27/2024 12:1 4 PM EDT 09/28/2024 1:32 AM EDT [facility] BLOOD ORDERABLES Final Resul t [facility] [address] [place] [address] * (ABNORMAL) POCT urinalysis dipstick manually resulted (09/27/2024 11:03 AM EDT) Only the most recent of2 resultswithin the time period is included. Color, UA Yellow Clarity, UA Clear Glucose, UA Negative Negative - 2000(110) ++++ mg/dL Bilirubin, UA Negative Negative - 4(70) +++ mg/dL Ketones, UA Negative Negative - 160(16) ++++ mg/dL Spec Grav, UA 1.020 1 - 1.03 Blood, UA Negative Negative - 50 Ralf/mcL pH, UA 7.0 5 - 9 Protein, UA Trace Negative - 2000(20) ++++ mg/dL Urobilinogen, UA 2.0 0.2 - 12 mg/dL Leukocytes, UA Trace Negative - 500+++ Joce/mcL Nitrite, UA Negative Negative - Positive Urine 09/27/2024 11:0 3 AM EDT [facility] POINT OF CARE TEST ENTER/EDIT OR DERABLES Final Result * IGP,APTIMA HPV,AGE GDLN (09/27/2024 10:45 AM EDT) AGE GDLN ACOG TESTING Note . TB Comment: TESTS RESULT FLAG UNITS REF RANGE LAB Clinician Provided Cytology Information Source.............Vagina No. of containers..01 ThinPrep Vial Age Lenny MCNEAL Lorena... FLAG LEGEND: L-Low Normal,H-High Normal,LL-Alert Low,HH-Alert High <-Panic Low,>-Panic High,A-Abnormal,AA-Critical Abnormal Performed at: 01 =G [facility] [address] Leia Carbajal MD, IGP, RFX APTIMA HPV ASCU Note . [facility] Comment: TESTS RESULT FLAG UNITS REF RANGE LAB DIAGNOSIS: 02 NEGATIVE FOR INTRAEPITHELIAL LESION OR MALIGNANCY. Specimen adequacy: 02 Satisfactory for evaluation. Performed by: Roland Hanson [employer] ([facility]) . 02 Note: Note 03 The Pap smear is a screening test designed to aid in the detection of premalignant and malignant conditions of the uterine cervix. It is not a diagnostic procedure and should not be used as the sole means of detecting cervical cancer. Both false-positive and false-negative reports do occur. Test Methodology: Note 03 This liquid based ThinPrep(R) pap test was screened with the use of an image guided system. . 02 The HPV DNA reflex criteria were not met with this specimen result therefore, no HPV testing was performed. FLAG LEGEND: L-Low Normal,H-High Normal,LL-Alert Low,HH-Alert High <-Panic Low,>-Panic High,A-Abnormal,AA-Critical Abnormal Performed at: 02 [facility] [address] [place] [address] Carter Hall MD, 03 WB [facility] [address] [address] Leia Carbajal MD, Performed at: =G - [facility] [address] [id number] [employer] Buyer: Leia Carbajal MD, Phone: [phone] Performed at: [facility] [address] [place], [place] [id number] Tobacco Buyer: Carter Hall MD, Phone: [phone] 09/27/2024 10:4 5 AM EDT 09/27/2024 8:41 PM EDT Narrative [facility] - 10/03/2024 3:08 PM EDT SPATULA-ALONE VAGINA [facility] BLOOD ORDERABLES Final Resul t [facility] * Pap Smear (09/27/2024 12:00 AM EDT) Swab Cervical swab / Unknown us [facility]an [facility] CYTOLOGY ORDERABLES Final Re sult EXTERNAL LAB * US OB INCOMPLETE ANATOMY (09/26/2024 10:13 AM EDT) Anatomical Region Laterality Modality Other 09/26/2024 10:1 3 AM EDT Narrative 09/26/2024 10:16 [place] [address] Ultrasound Report Signed Patient: LOYDA ADAME MR#: [id number] : 2000 Acct:[id number] Age/Sex: 24 / F ADM Date: 09/26/24 Loc: US Attending Dr: Rosalva Welsh D.O. Ordering Physician: Rosalva Welsh D.O. Date of Service: 09/26/24 Procedure(s): US OB incomplete anatomy Accession Number(s): [id number] cc: Rosalva Welsh D.O.; Shaw Jorgensen M.D. [place] [address] Patient Name: LOYDA ADAME MRN: [id number] date: 2000 Sex: F Assigned Patient Location: Current Patient Location: Accession/Order Number: [id number] Exam Date: 09/26/2024 10:11 Report Date: 09/26/2024 [...] Boyd M.D. 09/26/2024 10:13 AM Dictation Location: [place] [address] Electronically authenticated by: [id number] Y Date: 09/26/2024 10:13 Dictated By: Gina Boyd M.D. Signed By: 09/26/24 1016 DD/ 1013 TD/TT: Manager Quality: Procedure Note Radiology, Radiologist, - 09/26/2024 [place] [address] Ultrasound Report Signed Patient: LOYDA ADAME CMR#: [id number] : 2000Acct:[id number] Age/Sex: 24 / FADM Date: 09/26/24 Loc: US Attending Dr: Rosalva Welsh D.O. Ordering Physician: Rosalva Welsh D.O. Date of Service: 09/26/24 Procedure(s): US OB incomplete anatomy Accession Number(s): [id number] cc: Rosalva Welsh D.O.; Shaw Jorgensen M.D. The [place] [address] Patient Name: LOYDA ADAME MRN: [id number] date: 2000 Sex: F Assigned Patient Location: US Current Patient Location: US Accession/Order Number: [id number] Exam Date: 09/26/2024 10:11 Report Date: 09/26/2024 10:13 At the request of: ROSALVA WELSH DO Procedure: US OB incomplete anatomy ULTRASOUND OB INCOMPLETE ANATOMY COMPARISON: None CLINICAL DATA: Incomplete evaluation of the ventricular outflow tracts There is a single live intrauterine gestation in cephalic presentation.There is cardiac and somatic activity with heart rate of 163 bpm. The amniotic fluid volume is subjectively normal. A four-chamber heart is visualized. An echogenic focus is visualized within the left ventriclewhich is a normal variant. The right and left ventricular outflow tracts were successfully visualized. US/US OB incomplete anatomy IMPRESSION: VISUALIZATION OF THE VENTRICULAR OUTFLOW TRACTS. Impression dictated by: Gina Boyd M.D. 09/26/2024 10:13 AM Dictation Location: [place] [address] Electronically authenticated by: [id number] Y Date: 0:13 Dictated By: Gina Boyd M.D. Signed By:09/26/24 1016 DD/ 1013 TD/TT: Manager Quality: us Rosalva Anitha DO [facility] IMAGING Final Result * Urine culture (08/29/2024 4:26 PM EDT) Urine Urine specimen obtained by clean catch procedure / Unknown us Rosalva Anitha DO LAB MICROBIOLOGY - GENERAL ORDER TRENA Final Result EXTERNAL LAB * US OB 14+ weeks anatomy scan [...] II, MD, PHD at 30-Aug-2024 11:32:36 PM [facility] Procedure Note Trisha Lopez MD - [...] signed by TRISHA LOPEZ II, MD, PHD [id number] 11:32:36 PM [facility] us Rosalva Welsh DO IMG OB US PROCEDURES Final [...] [facility] - 08/08/2024 3:42 PM EDT us Rosalva Anitha DO [facility] Final Result Performing Organization Address [facility]/ZIP Co de Phone Number [facility] * BOX TEST (08/05/2024 12:10 PM EDT) BOX TEST SENT OUT [facility] BOX1 [facility] BOX2 08/05/24 [facility] 08/05/2024 12:1 0 PM EDT 08/05/2024 12:25 PM EDT Narrative [facility] - 08/05/2024 1:40 PM EDT [place] [facility] Rosalva Anitha DO LAB BLOOD ORDERABLES Final Resul t Performing Organization Address [facility] Co de Phone Number [facility] * HBSAG SCREEN (08/05/2024 12:10 PM EDT) HBSAG SCREEN Negative Negative [facility] Comment: Performed at: [address] [id number] Tobacco Buyer: Fer Turpin PhD, Phone: [phone] 08/05/2024 12:1 0 PM EDT 08/05/2024 12:25 PM EDT Narrative [facility] - 08/06/2024 1:12 PM EDT us Rosalva Anitha DO LAB BLOOD ORDERABLES Final Resul t Performing Organization Address [facility] Co de Phone Number [facility] * RAPID PLASMA REAGIN, QUANT (08/05/2024 12:10 PM EDT) RAPID PLASMA REAGIN, QUANT Non Reactive NonRea<1: 1 titer [facility] Comment: Please Note: This test does not meet current guidelines for screening and diagnosis of syphilis. This test is intended for following treatment response in patients being treated for syphilis infection. To screen for syphilis infection, a reflex cascade that includes both RPR and a treponema-specific assay should be utilized, such as Treponema pallidum (Syphilis) Screening Crocker (787715) or Rapid Plasma Reagin (RPR) Test With Reflex to Quantitative RPR and Confirmatory Treponema pallidum Antibodies (077870). Performed at: [address] [id number] Tobacco Buyer: Fer Turpin PhD, Phone: [phone] 08/05/2024 12:1 0 PM EDT 08/05/2024 12:25 PM EDT Narrative CLINISYNY - 08/06/2024 1:12 PM EDT [facility] LAB BLOOD ORDERABLES Final Resul t Performing Organization Address [facility] Co de Phone Number [facility] * HIV AB/P24 AG WITH REFLEX (08/05/2024 12:10 PM EDT) Pathologist [facility] [place] HIV AB/P24 AG SCREEN Non Reactive Non Reactive [facility] Comment: HIV-1/HIV-2 antibodies and HIV-1 p24 antigen were NOT detected. There is no laboratory evidence of HIV infection. HIV Negative Performed at: [address] [id number] Tobacco Buyer: Fer Turipn PhD, Phone: [phone] 08/05/2024 12:1 0 PM EDT 08/05/2024 12:25 PM EDT Narrative CLIN[facility] - 08/06/2024 5:07 AM EDT [employer] DO LAB BLOOD ORDERABLES Final Resul t Performing Organization Address [facility]/ZIP Co de Phone Number [facility] * AFP, SERUM, OPEN SPINA BIFIDA (08/05/2024 12:10 PM EDT) [facility] RESULTS Report . [facility] TEST RESULTS: *Screen Negative* . [facility] GEST. AGE ON COLLECTION DATE 17.4 . weeks [facility] GESTAT. AGE BASED ON Ultrasound . [facility] Comment: 17.4 on 08/05/2024 Recalculations are not recommended when gestational dating by LMP and ultrasound are within 10 days. [age] [facility] RACE . [facility] WEIGHT 156 . lbs [facility] INSULIN DEP DIABETES No . [facility] MULTIPLE GESTATION No . [facility] AFP VALUE 44.0 . ng/mL [facility] AFP MOM 1.13 . [facility] OSBR RISK 1 IN 8106 . [facility] INTERPRETATION Comment . [facility] Comment: Interpretation: Screen Negative This result is [...] Customer Services to discuss available options. The [employer] recommends amniocentesis be offered to women age 35 and older. COMMENT: Comment . [facility] Comment: Radha Bautista, Ph.D., [facility] Director References: Available Upon Request. Multiples Of Median Cutoffs For AFP Elevations Marin 2.5 Black 2.8 IDD 2.0 Twins 4.5 Abbreviation Definitions IDD - Insulin Dep Diabetes OSBR - Open Spina Bifida Risk For further inquiries contact [facility] at [phone]. This test was developed and its performance characteristics determined by [employer]. It has not been cleared or approved by the Food and Drug Administration. Performed at: [facility] [employer] [address] [facility], [place], [place] [id number] Tobacco Buyer: Amado Tinoco [facility], Phone: [phone] 08/05/2024 12:1 0 PM EDT 08/05/2024 12:25 PM EDT Narrative [facility]IN[facility] - 08/08/2024 7:20 PM EDT N N ULTRASOUND [id number] 17 N 1 Y 156 N N N N N White/ Rosalva Anitha DO LAB BLOOD ORDERABLES Final Resul t Performing Organization Address [facility]/ZIP Co de Phone Number [facility] * HCV ANTIBODY RFX TO QUANT PCR (08/05/2024 12:10 PM EDT) [facility] HCV AB Non Reactive Non Reactive [facility] INTERPRETATION: Comment . [facility] Comment: Not infected with HCV unless early or acute infection is suspected (which may be delayed in an immunocompromised individual), or other evidence exists to indicate HCV infection. Performed at: [facility] [id number] Tobacco Buyer: Fer Turpin PhD, Phone: [phone] 08/05/2024 12:1 0 PM EDT 08/05/2024 12:25 PM EDT Narrative CLINISYNY - 08/06/2024 7:07 AM EDT [employer] DO LAB BLOOD ORDERABLES Final Resul t Performing Organization Address [facility] Co de Phone Number [facility] * MLR HEMOGLOBIN A1C (08/05/2024 12:10 PM EDT) [facility] GLYCOHEMOGLOBIN A1C 4.7 4.5 - 6.2 % [facility] Comment: ADA RECOMMENDED LIMIT 4.0 - 6.0 ADA THERAPEUTIC TARGET < 7.0 ACTION SUGGESTED > 7.0 ESTIMATED AVERAGE GLUCOSE 88 mg/dL TB 08/05/2024 12:1 0 PM EDT 08/05/2024 12:25 PM EDT Narrative CL[facility] - 08/05/2024 1:42 PM EDT Rosalva Anitha DO CLIN[facility]NC Final Result Performing Organization Address [facility] Co de Phone Number [facility] * ALL TYPE AND SCREEN (08/05/2024 12:10 PM EDT) [facility] BLOOD TYPE A Positive [facility] ANTIBODY SCREEN NEGATIVE TB 08/05/2024 12:1 0 PM EDT 08/05/2024 12:25 PM EDT Narrative CL[facility] - 08/05/2024 1:40 PM EDT [facility] , [place] Rosalva Anitha DO CLINISYNC Final Result [facility] * ALL RUBELLA IGG AB (08/05/2024 12:10 PM EDT) [facility] RUBELLA ANTIBODIES, IGG 2.66 Immune >0.99 index [facility] Comment: Non-immune <0.90 Equivocal 0.90 - 0.99 Immune >0.99 Performed at: [facility] [address] [id number] Tobacco Buyer: Fer Turpin PhD, Phone: [phone] 08/05/2024 12:1 0 PM EDT 08/05/2024 12:25 PM EDT Narrative CL[facility] - 08/06/2024 7:07 AM EDT Rosalva Anitha DO [facility] Final Result Performing Organization Address [facility]/ZIP Co de Phone Number [facility] * (ABNORMAL) ALL CBC WITH AUTO DIFF (08/05/2024 12:10 PM EDT) [facility] WBC 8.1 4.0 - 11.0 10 3/uL [facility] RBC 3.89(L) 4.20 - 5.40 10 6/uL [facility] HGB 12.3 12.0 - 16.0 g/dL [facility] TB HCT 35.4(L) 36.0 - 48.0 % [facility] [...] CLINISYNC - 08/05/2024 1:00 PM EDT us Rosalva Welsh DO CLINISYNC Final Result [facility] * US OB limited 1+ fetuses (08/05/2024 [...] II, MD, PHD at 07-Aug-2024 08:22:24 PM [facility] Procedure Note Trisha Lopez MD - [...] signed by TRISHA LOPEZ II, MD, PHD [id number] 08:22:24 PM [facility] us Rosalva Welsh DO IMG OB US PROCEDURES Final Resul t from Last 3 Months Additional Health Concerns Active Problems Noted Date Diagnosed Date OB Reminders 09/20/[address] [address] [employer] Care Teams Station Manager Relationship Specialty Start Date End Date Shaw Jorgensen MD [address] [place] [address] PCP - General Family Medicine 09/03/22
--- OUTSIDE RECORDS SUMMARY | 2024-10-20 07:16 | XMS_ITS | CCD ---
Author Organization [facility] CliniSymo Care Team Providers Care Chargemaster Specialist Name Role Phone ANITHA ., DR BLACKWELL [...] Care Provider Shaw Jorgensen Primary Care Physician [phone] Israel POND Attending Unavailable Shaw Jorgensen Referring Unavailable Israel POND Attending Unavailable Anatoly PARK Attending Unavailable Shaw Jorgensen MD Primary Care Provider ROSALVA WELSH Attending Unavailable TRAN PEREZ Attending Unavailable Allergies Allergy Classification Reported Allergen(s) Allergy Type Date of Onset Reaction(s) Facility (1 source) No Known Medication Allergies; Translations: [No Known Medication Allergies] Propensity to adverse reactions (disorder) [facility] Repository Medications Current Medications Medication Drug Class(es) Dates Sig (Normalized) Sig (Original) cetirizine hydrochloride 10 mg oral tablet (15 sources) Histamine-1 Receptor Antagonist Start: 12-25-2023 take 1 tablet by mouth once daily cetirizine 10 mg Tab 10 mg = 1 tab(s), Oral, Daily, Refills(s) 0 Start Date: 12/25/23 Status: Ordered DULoxetine 60 mg delayed release oral capsule (13 sources) Serotonin and Norepinephrine Reuptake Inhibitor take [...] Status: Ordered Vit-Fe Fumarate-FA ( VITAMIN PO) (10 sources) Vit-Fe Fumarate-FA ( VITAMIN PO) Take [...] End: 05-05-2023 QUEtiapine (SEROquel) 25 MG tablet Pehbexknl-Bzbletutb-Qwgincfg d (Myfembree) 40-1-0.5 MG tablet (2 sources) Start: 09-07-2023 take 1 tablet by mouth once daily Fmdtfmxal-Ggauuneuf-Fwvwtrjtt (Myfembree) 40-1-0.5 MG tablet Indications: Endometriosis Take [...] W/AND (SUSP) EXPOS COVID-19] Onset: 10-29-2021 Unclassified (5 sources) OB Reminders Onset: 09-20-2024 09-20-2024 Past or Other Problems Problem Classification Problem Date Documented Da te Episodic/Chronic Abdominal pain (17 sources) Pelvic and perineal pain; Translations: [Pain in female pelvis] Onset: 10-25-2021 Episodic Other female genital disorders (4 sources) Other specified conditions associated with female genital organs and menstrual cycle; Translations: [OTH SPEC COND FE GEN ORG MENST CYCL] Onset: 02-04-2022 Episodic Results Test Name Value Interpretation Reference Range Facility IGP,APTIMA HPV,AGE GDLNon AGE GDLN ACOG TESTING Note . [facility] Comment on above: TESTS RESULT FLAG UN ITS REF RANGE LAB Clinician Provided Cytology Information Source.............Vagina No. of containers..01 ThinPrep Vial Age Algo ACOG [place]... FLAG LEGEND: L-Low Normal,H-High Normal,LL-Alert Low,HH-Alert High <-Panic Low,>-Panic High,A-Abnormal,AA-Critical Abnormal Performed at: 01 =G [facility] [address] [place] [address] Leia Carbajal MD, IGP, RFX APTIMA HPV ASCU Note . [facility] Comment on above: TESTS RESULT FLAG UN ITS REF RANGE LAB DIAGNOSIS: 02 NEGATIVE FOR INTRAEPITHELIAL LESION OR MALIGNANCY. Specimen adequacy: 02 Satisfactory for evaluation. Performed by: 02 Alicia Hanson, Dental Prosthetist ([facility]) . 02 Note: Note 03 The Pap [...] High,A-Abnormal,AA-Critical Abnormal Performed at: 02 KWCYT [facility] [place] [facility] [address] [place] [phone] Carter Hall MD, [facility] [address] [address] Leia Carbajal MD, Performed at: =G - [facility] [id number] Corporate Planner: Leia Carbajal MD, Phone: [phone] Performed at: [facility] [address] [place], [place] [id number] Corporate Planner: Carter Hall MD, Phone: [phone] SPATULA-ALONE VAGINA [facility] RECURRENT VAGINITIS (HTRX)on 09-28-2024 ATOPOBIUM VAGINAE 20.937 Abnormal [facility] Healthcare ATOPOBIUM VAGINAE Detected Abnormal [facility] BVAB 2,3 (BACTERIAL VAGINOSIS ASSOCIATED BACTERIA 2, 3); MOBILUNCUS SPP 0 [facility] BVAB 2,3 (BACTERIAL VAGINOSIS ASSOCIATED BACTERIA 2, 3); MOBILUNCUS SPP Not detected [facility] RENE ALBICANS, PARAPSILOSIS, TROPICALIS 0 [facility] RENE ALBICANS, PARAPSILOSIS, TROPICALIS Not detected [facility] RENE GLABRATA 0 [facility] RENE GLABRATA Not detected [facility] RENE KRUSEI 0 [facility] RENE KRUSEI Not detected [facility] CHLAMYDIA TRACHOMATIS 26.087 Abnormal [facility] CHLAMYDIA TRACHOMATIS Detected Abnormal [facility] ERMB, C; MEFA 16.837 Abnormal [facility] ERMB, C; MEFA Detected Abnormal [facility] GARDNERELLA VAGINALIS 18.175 Abnormal [facility] GARDNERELLA VAGINALIS Detected Abnormal [facility] Interpretation and review of laboratory results Abnormal [facility] MEGASPHAERA (TYPES 1, 2) 17.801 Abnormal [facility] MEGASPHAERA (TYPES 1, 2) Detected Abnormal [facility] MYCOPLASMA GENITALIUM 0 [facility] MYCOPLASMA GENITALIUM Not detected [facility] NEISSERIA GONORRHOEAE 0 [facility] NEISSERIA GONORRHOEAE Not detected [facility] TET B, TET M 18.436 Abnormal [facility] TET B, TET M Detected Abnormal [facility] TRICHOMONAS VAGINALIS 0 [facility] TRICHOMONAS VAGINALIS Not detected [facility] Urinalysis macro (dipstick) panel (U)on 09-27-2024 Bilirubin, UA Negative Negative - 4(70) +++ mg/dL [facility] Blood, UA Negative Negative - 50 Ralf/mcL [facility] Clarity, UA Clear [facility] Color, UA Yellow [facility] Glucose, UA Negative Negative - 1999(110) ++++ mg/dL [facility] Interpretation and review of laboratory results Abnormal [facility] Ketones, UA Negative Negative - 160(16) ++++ mg/dL [facility] Leukocytes, UA Trace Negative - 500+++ Joce/mcL [facility] Nitrite, UA Negative Negative - Positive [facility] pH, UA 7 5 - 9 [facility] Protein, UA Trace Negative - 1999(20) ++++ mg/dL [facility] Spec Grav, UA 1.02 1 - 1.03 [facility] Urobilinogen, UA 2.0 0.2 - 12 mg/dL [facility] US OB INCOMPLETE ANATOMYon 0 09-26-2024 [place] [address] Ultrasound Report Signed Patient: LOYDA ADAME MR#: [id number] : 2000 Acct:[id number] Age/Sex: 24 / F ADM Date: 09/26/24 Loc: US Attending Dr: Rosalva Welsh D.O. Ordering Physician: Rosalva Welsh D.O. Date of Service: 09/26/24 Procedure(s): US OB incomplete anatomy Accession Number(s): [id number] cc: Rosalva Welsh D.O.; Shaw Jorgensen M.D. [place] [id number] Patient Name: LOYDA ADAME MRN: [id number] date: 2000 Sex: F Assigned Patient Location: US Current Patient Location: US Accession/Order Number: [id number] Exam Date: 09/26/2024 10:11 Report Date: 09/26/2024 [...] Boyd M.D. 09/26/2024 10:13 AM Dictation Location: [place] [address] Electronically authenticated by: [id number] Y Date: 09/26/2024 10:13 Dictated By: Gina Boyd M.D. Signed By: 09/26/24 1016 DD/ 1013 TD/TT: Scrap Yard Worker: [facility] Radiology, Radiologist, - 09/26/2024 [place] [address] Ultrasound Report Signed Patient: LOYDA ADAME MR#: [id number] : 2000 Acct:[id number] Age/Sex: 24 / F ADM Date: 09/26/24 Loc: US Attending Dr: Rosalva Welsh D.O. Ordering Physician: Rosalva Welsh D.O. Date of Service: 09/26/24 Procedure(s): US OB incomplete anatomy Accession Number(s): [id number] cc: Rosalva Welsh D.O.; Shaw Jorgensen M.D. The [place] [id number] Patient Name: LOYDA ADAME MRN: [facility]:[id number] date: 2000 Sex: F Assigned Patient Location: US Current Patient Location: US Accession/Order Number: [id number] Exam Date: 09/26/2024 10:11 Report Date: 09/26/2024 [...] Boyd M.D. 09/26/2024 10:13 AM Dictation Location: [place] [address] Electronically authenticated by: [id number] Y Date: 09/26/2024 10:13 Dictated By: Gina Boyd M.D. Signed By: 09/26/24 1016 DD/ 1013 TD/TT: Scrap Yard Worker: [facility] Radiology Study observation (narrative) [facility] US OB INCOMPLETE ANATOMYOrde red By: Radiologist Radiology on 09-26-2024 [facility] Work Phone: US OB 14+ WEEKS ANATOMY [...] II, MD, PHD at 30-Aug-2024 11:32:36 PM [facility] Normal Not Available Comment on above: Order Comment: US OB ANATOMY SINGLE W US OB CERVICAL LENGTH Estimated Date of Delivery: 01/10/25 Gestational Age as of 08/05/2024: 17w3d Urinalysis macro (dipstick) panel (U)on 08-29-2024 Bilirubin, UA Negative Negative - 4(70) +++ mg/dL [facility] Blood, UA Negative Negative - 50 Ralf/mcL [facility] Clarity, UA Clear [facility] Color, UA Yellow [facility] Glucose, UA Negative Negative - 1999(110) ++++ mg/dL [facility] Interpretation and review of laboratory results Normal [facility] Ketones, UA Negative Negative - 160(16) ++++ mg/dL [facility] Leukocytes, UA Negative Negative - 500+++ Joce/mcL [facility] Nitrite, UA Negative Negative - Positive [facility] pH, UA 7 5 - 9 [facility] Protein, UA Negative Negative - 1999(20) ++++ mg/dL [facility] Spec Grav, UA 1.01 1 - 1.03 [facility] Urobilinogen, UA 0.2 0.2 - 12 mg/dL [facility] DRUG SCREEN RAPID (URINE )on 08-08-2024 AMPHETAMINE SCREEN URINE Negative NEGATIVE [facility] BARBITURATES SCREEN URINE Negative NEGATIVE [facility] BENZODIAZEPINES SCREEN URINE Negative NEGATIVE [facility] BUPRENORPHINE SCREEN URINE Negative NEGATIVE [facility] Comment on above: DRUG CLASS TEST SYST [...] 300 ng/mL CANNABINOID SCREEN URINE Negative NEGATIVE [facility] COCAINE SCREEN URINE Negative NEGATIVE [facility] METHADONE SCREEN URINE Negative NEGATIVE [facility] METHAMPHETAMINES SCREEN URINE Negative NEGATIVE [facility] OPIATE SCREEN URINE Negative NEGATIVE [facility] OXYCODONE SCREEN URINE Negative NEGATIVE [facility] PHENCYCLIDINE SCREEN URINE Negative NEGATIVE [facility] TRICYCLIC ANTIDEPRESSANT URINE Negative NEGATIVE [facility] ALL CBC WITH AUTO DIFFon BASOPHILS ABSOLUTE AUTO 0 [facility] Basophils/100 WBC (Bld) 0.5 % 0.2 - 2.0 % [facility] Eosinophils/100 WBC (Bld) 2 % 0.9 - 7.0 % [facility] Erythrocyte distribution width (RBC) [Ratio] 13.8 % 11.0 - 15.0 % [facility] Hematocrit (Bld) [Volume fraction] 35.4 % Low 36.0 - 48.0 % [facility] Hemoglobin (Bld) [Mass/Vol] 12.3 g/dL 12.0 - 16.0 g/dL [facility] IMMATURE GRANULOCYTES ABS AUTO 0.03 [facility] Immature granulocytes/100 WBC (Bld) 0.4 % 0.0 - 0.5 % [facility] Interpretation and review of laboratory results Abnormal [facility] LYMPHOCYTES ABSOLUTE AUTO 1.3 [facility] Lymphocytes/100 WBC (Bld) 15.5 % Low 20.5 - 60.0 % [facility] MCH (RBC) [Entitic mass] 31.6 pg 26.7 - 34.0 pg [facility] MCHC (RBC) [Mass/Vol] 34.7 g/dL 29.9 - 35.2 g/dL [facility] MCV (RBC) [Entitic vol] 91 fL 81.0 - 99.0 fL [facility] MONOCYTES ABSOLUTE AUTO 0.5 [facility] Monocytes/100 WBC (Bld) 5.9 % 1.7 - 12.0 % [facility] NEUTROPHILS ABSOLUTE AUTO 6.1 [facility] Neutrophils/100 WBC (Bld) 75.7 % High 43.0 - 75.0 % [facility] Platelet mean volume (Bld) [Entitic vol] 9.5 fL 9.5 - 13.5 fL [facility] EO # 0.2 [facility] PLT 307 [facility] TB RBC 3.89 Low [facility] WBC 8.1 [facility] US OB LIMITED 1+ FETUSESon 0 - US OB LIMITED 1+ FETUSES EXAM: US [...] II, MD, PHD at 07-Aug-2024 08:22:24 PM [facility] Normal Not Available Comment on above: [...] Immunizations Vaccine Date Status Comments SARS-CoV-2 (COVID-19) mRNAMUL.ORD![id number] 03/10/2022 Recorded SARS-CoV-2 (COVID-19) mRNA BNT-162b2 vax 09/07/2020 Recorded 2023-12-25: TPVAL SARS-CoV-2 (COVID-19) mRNA BNT-162b2 vax 08/17/2020 Recorded 2023-12-25: TPVAL Normal [facility] Comment on above: Result Comment: Elec [...] for choosing us for your care. Normal [facility] QUANTIFERON TB GOLD PLUSon 0 07-17-2022 QuantiFERON Criteria Comment Normal [facility] Comment on above: Result Comment: Yon [...] NTTB #### [facility] [address] [place] [address] Dr. Elie Milan QuantiFERON Incubation Incubation performed. Normal [facility] Comment on above: Performed By: #### Q NTTB #### [facility] [address] [place] [address] [address] Elie Milan QuantiFERON Mitogen Value >10.00 [facility] Comment on above: Performed By: #### Q NTTB #### [facility] [address] [place] [address] [address] Elie Milan QuantiFERON Nil Value 0.05 IU/mL [facility] Comment on above: Performed By: #### Q NTTB #### [facility] [address] [place] [address] Dr. Elie Milan QuantiFERON TB1 Ag Value 0.06 IU/mL [facility] Comment on above: Performed By: #### Q NTTB #### [facility] [address] [place] [address] [address] Elie Milan QuantiFERON TB2 Ag Value 0.07 IU/mL Normal [facility] Comment on above: Performed By: #### Q NTTB #### [facility] [address] [place] [address] [address] Elie Milan QuantiFERON-TB Gold Plus Negative Normal Negative [facility] Comment on above: Result Comment: No r esponse to M tuberculosis antigens detected. Infection with M tuberculosis is unlikely, but high risk individuals should be considered for additional testing (ATS/IDSA/CDC Clinical Practice Guidelines, 2017). The reference range is an Antigen minus Nil result of <0.35 IU/mL. Chemiluminescence immunoassay methodology Performed By: #### Q NTTB #### [facility] [address] [place] [address] Dr. Elie Milan HEPATITIS B SURFACE ANTIBODY , QUANTon 07-16-2022 Hepatitis B Surf AB Quant <3.1 Critically low Immunity>9.9 [facility] Comment on above: Result Comment: Stat us of Immunity Anti-HBs Level Inconsistent with Immunity 0.0 - 9.9 Consistent with Immunity >9.9 Performed By: #### H EPBSRF #### [facility] [address] [place] [address] Dr. Elie Milan MMR IMMUNITYon 07-16-2022 Mumps Abs, IgG 261.0 AU/mL Normal Immune >10.9 [facility] Comment on above: Result Comment: Nega tive <9.0 Equivocal 9.0 - 10.9 Positive >10.9 A positive result generally indicates past exposure to Mumps virus or previous vaccination. Performed By: #### M MRIMMU #### [facility] [address] [place] [address] Dr. Elie Milan Rubella Antibodies, IgG 3.97 index Normal Immune >0.99 [facility] Comment on above: Result Comment: Non- immune <0.90 Equivocal 0.90 - 0.99 Immune >0.99 Performed By: #### M MRIMMU #### [facility] [address] [place], [place] [address] Dr. Elie Milan Rubeola Ab, IgG >300.0 Normal Immune >16.4 [facility] Comment on above: Result Comment: Nega tive <13.5 Equivocal 13.5 - 16.4 Positive >16.4 Presence of antibodies to Rubeola is presumptive evidence of immunity except when acute infection is suspected. Performed By: #### M MRIMMU #### [facility] [address] [place], [place] [address] Dr. Elie Milan VARICELLA IGG ABon 3 Varicella Zoster IgG 1549 index Normal Immune >165 [facility] Comment on above: Result Comment: Nega tive <135 Equivocal 135 - 165 Positive >165 A positive result generally indicates exposure to the pathogen or administration of specific immunoglobulins, but it is not indication of active infection or stage of disease. Performed By: #### V ARCEL #### [facility] [address] [place] [address] Dr. Elie Milan US PELVIS AND TRANSVAGon [...] Normal [facility] HCG-BETA SUBUNIT QUANTon hCG,Beta Subunit,Qnt,Serum <1 Normal [facility] Comment on above: Result Comment: Fema le (Non-) 0 - 5 (Postmenopausal) 0 - 8 . Female () Weeks of Gestation 3 6 - 71 4 10 - 750 5 627 - 5815 6 368 - 23721 7 1828 -653951 8 08923 -442292 9 87185 -963600 00480 -311299 12 83113 -171545 14 02035 - 18436 15 31743 - 73749 16 2576 - 87570 17 6433 - 74282 18 0464 - 32771 [facility] ECLIA methodology Performed By: #### H CGSUB #### [facility] [address] [place] [address] Dr. Elie Milan CBC AUTO DIFFon 10-23-2021 BASO # 0.1 103/ul Normal 0.0-0.1 [facility] Comment on above: Performed By: #### C BC #### [facility] [address] [place] [address] Dr. Elie Milan Basophils/100 WBC (Bld) 1.1 % Normal 0.2-2.0 [facility] Comment on above: Performed By: #### C BC #### [facility] [address] [place] [address] Dr. Elie Milan EO # 0.3 103/ul Normal 0.0-0.7 [facility] Comment on above: Performed By: #### C BC #### [facility] [address] [place] [address] Dr. Elie Milan Eosinophils/100 WBC (Bld) 4.6 % Normal 0.9-7.0 [facility] Comment on above: Performed By: #### C BC #### [facility] [address] [place] [address] Dr. Elie Milan Erythrocyte distribution width (RBC) [Ratio] 11.9 % Normal 11.0-15.0 [facility] Comment on above: Performed By: #### C BC #### [facility] [address] [place] [address] Dr. Elie Milan Hematocrit (Bld) [Volume fraction] 41.0 % Normal 36.0-48.0 [facility] Comment on above: Performed By: #### C BC #### [facility] [address] [place] [address] Dr. Elie Milan Hemoglobin (Bld) [Mass/Vol] 14.0 g/dL Normal 12.0-16.0 [facility] Comment on above: Performed By: #### C BC #### [facility] [address] [place] [address] Dr. Elie Milan IG # 0.02 10e3/ul Normal 0.00-0.03 [facility] Comment on above: Performed By: #### C BC #### [facility] [address] [place] [address] Dr. Elie Milan IG % 0.3 % Normal 0.0-0.5 [facility] Comment on above: Performed By: #### C BC #### [facility] [address] [place] [address] Dr. Elie Milan LYMPH # 1.3 103/ul Normal 1.2-3.8 [facility] Comment on above: Performed By: #### C BC #### [facility] [address] [place] [address] Dr. Elie Milan Lymphocytes/100 WBC (Bld) 17.9 % Critically low 20.5-60.0 [facility] Comment on above: Performed By: #### C BC #### [facility] [address] [place] [address] Dr. Elie Milan MANUAL DIFF REQ NO Normal [facility] Comment on above: Performed By: #### C BC #### [facility] [address] [place] [address] Dr. Elie Milan MCH (RBC) [Entitic mass] 30.9 pg Normal 26.7-34.0 [facility] Comment on above: Performed By: #### C BC #### [facility] [address] [place] [address] Dr. Elie Milan MCHC (RBC) [Mass/Vol] 34.1 g/dL Normal 29.9-35.2 [facility] Comment on above: Performed By: #### C BC #### [facility] [address] [place] [address] Dr. Elie Milan MCV (RBC) [Entitic vol] 90.5 fL Normal 81.0-99.0 [facility] Comment on above: Performed By: #### C BC #### [facility] [address] [place] [address] Dr. Elie Milan MONO # 0.5 103/ul Normal 0.3-0.8 [facility] Comment on above: Performed By: #### C BC #### [facility] [address] [place] [address] Dr. Elie Milan Monocytes/100 WBC (Bld) 7.3 % Normal 1.7-12.0 [facility] Comment on above: Performed By: #### C BC #### [facility] [address] [place] [address] Dr. Elie Milan NEUT # 4.8 103/ul Normal 1.4-6.5 [facility] Comment on above: Performed By: #### C BC #### [facility] [address] [place] [address] Dr. Elie Milan Neutrophils/100 WBC (Bld) 68.8 % Normal 43.0-75.0 [facility] Comment on above: Performed By: #### C BC #### [facility] [address] [place] [address] Dr. Elie Milan Platelet mean volume (Bld) [Entitic vol] 9.9 fL Normal 9.5-13.5 [facility] Comment on above: Performed By: #### C BC #### [facility] [address] [place] [address] Dr. Elie Milan PLT 223 103/ul Normal 150-450 [facility] Comment on above: Performed By: #### C BC #### [facility] [address] [place] [address] Dr. Elie Milan RBC 4.53 106/ul Normal 4.20-5.40 [facility] Comment on above: Performed By: #### C BC #### [facility] [address] [place] [address] Dr. Elie Milan WBC 7.0 103/ul Normal 4.0-11.0 [facility] Comment on above: Performed By: #### C BC #### [facility] [address] [place] [address] [address] Elie Milan HCG-BETA SUBUNIT QUANTon hCG,Beta Subunit,Qnt,Serum <[address] [facility] Comment on above: Result Comment: Fema le (Non-) 0 - 5 (Postmenopausal) 0 - 8 . Female () Weeks of Gestation 3 6 - 71 4 10 - 750 5 641 - 7285 6 715 - 20082 7 5499 -772839 8 76397 -300411 9 92758 -544407 10 81766 -884008 12 51085 -909291 14 59032 - 18376 15 58052 - 43948 16 9628 - 98582 17 2659 - 99039 18 0156 - 19703 [employer] ECLIA methodology Performed By: #### H CGSUB #### [facility] [address] [place] [address] Dr. Elie Milan US PELVIS TRANSVAGon 022 [...] by: NIKO FOREMAN Date: 2021-10-08 16:[address] [facility] CNOVSPon 05-17-2019 CNOVSP Visit (SP) Office ([place]) LOYDA ADAME ([id number]) 2000 F Date Time Provider Department 05/17/19 10:45 AM FORD MORGAN) IFTIKHAR During your visit today, we recorded the following information about you: Temperature Pulse Respiration Blood pressure 98.2 degrees 86/minute 18/minute 121/71 Weight Height 56.8 kg 1.632 m Ford Morgan MD 05/17/2019 2:07 PM Signed PATIENT NAME: Loyda Adame CLINIC NO.: [id number] ATTENDING PHYSICIAN: Ford Morgan MD DATE OF SERVICE: May 17, 2019 This document has been created with the use of voice recognition technology. It may contain inaccuracies, misspellings, inaccurate syntax or inappropriate word context that escaped review. Dear Dr. Ford Morgan MD [address] [place] [address] here is an update on a follow [...] do not hesitate to contact me at [phone]. Ford Morgan MD Hematology/Medical Oncology [facility] CC: Shaw Jorgensen Referring Provider: FORD MORGAN) [[id number]] Allergies As of Date: 05/17/2019 (No Known [...] by FORD MORGAN MD on 05/17/19 [facility] PRO[facility]ESS[facility] 05-17-2019 PROGRESS HNO ID: [id number] Author: Ford Morgan Service: ? Author Type: Physician Type: Progress Notes Filed: 05/17/2019 2:07 PM Note Text: PATIENT NAME: Loyda Adame CLINIC NO.: [id number] ATTENDING PHYSICIAN: Ford Morgan MD DATE OF SERVICE: May 17, 2019 This document has been created with the use of voice recognition technology. It may contain inaccuracies, misspellings, inaccurate syntax or inappropriate word context that escaped review. Dear Dr. Ford Morgan MD [address] [place], [place] [id number] here is an update on a follow [...] do not hesitate to contact me at [phone]. Ford Morgan MD Hematology/Medical Oncology [facility] CC: Shaw Jorgensen Normal [facility] APTTon 05-10-2019 aPTT Coag (Bld) [Time] 27.1 s Normal 23.0-32.4 [facility] Comment on above: Result Comment: Unfr actionated [...] APTT reagent in use throughout the [facility]. Performed By: #### P RSCLT, PTT, PT, PRCFUN #### [facility] [address] [place], [place] [address] Protein C Functionalon 05-10 Protein [Mass/Vol] 89 % Normal 76-147 [facility] Comment on above: Performed By: #### P RSCLT, PTT, PT, PRCFUN #### [facility] [address] [place], [place] [address] Protein S Clottableon 2019 Protein S Clottable 58 % Low 59-131 [facility] Comment on above: Result Comment: Resu [...] RSCLT, PTT, PT, PRCFUN #### [facility] [address] [place], [place] [address] Protimeon 05-10-2019 PT Coag (PPP) [Time] 10.2 s Normal 9.7-13.0 [facility] Comment on above: Performed By: #### P RSCLT, PTT, PT, PRCFUN #### [facility] [address] [place], [place] [address] PT Coag (PPP) [Time] 0.9 s Normal 0.9-1.3 [facility] Comment on above: Result Comment: Maria D min K Antagonist (VKA) Therapeutic Range: INR 2 to 3 (Target INR of 2.5) Note: For patients treated with VKA drugs, such as warfarin, the [employer] 2012 Guideline recommends [...] Chest 2012, 141:7S-47S Deo RA, et al. [facility] 2017, 70: 252-289 Performed By: #### P RSCLT, PTT, PT, PRCFUN #### [facility] [address] [id number] CNOVSPon 04-12-2019 CNOVSP Visit (SP) Office ([place]) LOYDA ADAME ([id number]) 2000 F Date Time Provider Department 04/12/19 4:15 PM FORD MORGAN) IFTIKHAR During your visit today, we recorded the following information about you: Temperature Pulse Respiration Blood pressure 97.8 degrees 90/minute 18/minute 119/74 Weight Height 56.7 kg 1.632 m Ford Morgan MD 04/12/2019 4:48 PM Signed PATIENT NAME: Loyda Adame CLINIC NO.: [id number] ATTENDING PHYSICIAN: Ford Morgan MD DATE OF [...] me to participate in Miss Loyda Adame [facility], if there are any questions or concerns please do not hesitate to contact me at the number below. Ford Morgan M.D. 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] Order(s):ACTIVATED PTT [SQPTT] Order #: [id number] FUTURE PROTHROMBIN TIME/PT [SQPT] Order #: [id number] FUTURE TUBES - DRAW EXTRA [SQXTUBE] Order #: [id number] FUTURE PROTEIN C FUNCT [SQPRCFUN] Order #: [id number] FUTURE PROTEIN S CLOTTABLE [SQPRSCLT] Order #: [id number] FUTURE Follow-up and Disposition History Recorded Prescriptions as of 04/12/2019 Sig: NORGESTIMATE 0.25 MG-ETHINYL * Take 1 tablet by mouth once d* Problem List As Of Date: 04/12/2019 (None) Encounter Status:Closed by FORD MORGAN MD on 04/12/19 [facility] PRO[facility]ESS[facility] 04-12-2019 PROGRESS HNO ID: [id number] Author: Ford Morel) Cathy Service: ? Author Type: Physician Type: Progress Notes Filed: 04/12/2019 4:48 PM Note Text: PATIENT NAME: Loyda [facility] NO.: [id number] ATTENDING PHYSICIAN: Ford Morgan MD DATE OF [...] for allowing me to participate in Miss Scales Adame [facility], if there are any questions or concerns please do not hesitate to contact me at the number below. Ford Morgan M.D. Hematology/Medical Oncology [facility] [phone] CC: Normal [facility] Vital Signs Date Time Vital Sign Value Performing Clinician Facility 09-27-2024 11:12-0400 Body mass index (BMI) [Ratio] 27.22 kg/m2 Tran WESTFALL Work Phone: [facility] 09-27-2024 11:12-0400 Body weight 74.21 kg Tran WESTFALL Work Phone: [facility] 09-27-2024 11:12-0400 Diastolic blood pressure 82 mm[Hg] Tran WESTFALL Work Phone: [facility] 09-27-2024 11:12-0400 Systolic blood pressure 116 mm[Hg] Tran Perez PA Work Phone: [facility] 08-29-2024 14:46-0400 Body mass index (BMI) [Ratio] 26.21 kg/m2 Rosalva Anitha DO Work Phone: [facility] 08-29-2024 14:46-0400 Body weight 71.44 kg Rosalva Anitha DO Work Phone: [facility] 08-29-2024 14:46-0400 Diastolic blood pressure 72 mm[Hg] Rosalva Anitha DO Work Phone: [facility] 08-29-2024 14:46-0400 Systolic blood pressure 114 mm[Hg] Rosalva Anitha DO Work Phone: [facility] 04-11-2024 13:50-0500 Blood Pressure Location Israel NILL [facility] 04-11-2024 13:50-0500 Diastolic blood pressure 74 mm[Hg] Israel NILL [facility] 04-11-2024 13:50-0500 Heart rate 87 /min Israel NILL [facility] 04-11-2024 13:50-0500 Respiratory rate 16 /min Israel NILL [facility] 04-11-2024 13:50-0500 Systolic blood pressure 106 mm[Hg] Israel NILL [facility] 12-31-2023 08:48-0400 Blood Pressure Location Israel NILL [facility] 12-31-2023 08:48-0400 Diastolic blood pressure 87 mm[Hg] Isarel NILL [facility] 12-31-2023 08:48-0400 Heart rate 81 /min Israel NILL [facility] 12-31-2023 08:48-0400 Respiratory rate 16 /min Israel NILL [facility] 12-31-2023 08:48-0400 Systolic blood pressure 120 mm[Hg] Israel NILL [facility] Encounters Encounter Date Encounter Type Care Provider Facility Start: 09-27-2024 End: 10-03-2024 Clinisync Result Encounter Tran WESTFALL Work Phone: [facility] Unsolicited Start: 09-27-2024 End: 09-28-2024 External Result Encounter Tran Ansarielinor [place]ALL Work Phone: [facility] Unsolicited Start: 09-27-2024 End: 10-03-2024 External Result Encounter Tran Perez MALOU Work Phone: [facility] Unsolicited Start: 09-27-2024 End: 09-27-2024 ambulatory TRAN PEREZ Not Available Start: 09-27-2024 End: 09-27-2024 Patient encounter procedure Tran WESTFALL Work Phone: [facility] Start: 09-27-2024 End: 09-27-2024 Periodic preventive med est patient 18-39 yrs Tran WESTFALL Work Phone: [facility] Comment on above: Second trimester pre gnancy ([facility]); 25 weeks gestation of ([facility]); STD exposure; Well woman exam with [...] Not Available Start: 07-24-2024 ambulatory Israel POND Facility:[facility] Start: 04-11-2024 End: 04-11-2024 ambulatory Israel Gonzalez NILL Facility:[facility] Start: 04-11-2024 End: 04-11-2024 Patient encounter procedure Israel MALLORYL [facility] Start: 03-24-2024 ambulatory Israel MALLORYL Facility:[facility] [place] Start: 02-01-2024 End: 02-01-2024 Patient encounter procedure Ki Lock DO Work Phone: [facility] Comment on above: Encounter for drug s creening Start: 02-01-2024 End: 02-01-2024 ambulatory ROSALVA ANITHA Not Available Start: 01-14-2024 End: 01-14-2024 ambulatory Anatoly PARK Facility:[facility] Start: 12-31-2023 End: 12-31-2023 ambulatory Shaw Jorgensen Facility:[facility] Start: 12-31-2023 End: 12-31-2023 Patient encounter procedure Israel R NILL [facility] Start: 12-25-2023 ambulatory Israel DEJAH Facility:[facility] Start: 05-05-2023 End: 05-05-2023 Phys/qhp telephone evaluation 5-10 min Rosalva Welsh DO Work Phone: [facility] Comment on above: Encounter to discuss test results Start: 07-15-2022 End: 07-16-2022 ambulatory KHLOE GARCIA Facility:[facility] Start: 02-04-2022 End: 02-05-[address] ROSALVA WELSH . Facility:[facility] Start: 10-29-2021 Encounter for preprocedural laboratory examination DR ROSALVA WELSH . [facility] Start: 10-25-2021 End: 10-25-[address] ROSALVA WELSH . Facility:[facility] Start: 10-23-2021 End: 10-24-[address] ROSALVA WELSH . Facility:[facility] Start: 10-23-2021 End: 10-24-2021 Encounter for preprocedural laboratory examination DR ROSALVA WELSH . Facility:[facility] Start: 10-22-2021 Encounter for other preprocedural examination DR ROSALVA WELSH . [facility] Start: 10-17-2021 End: 10-18-[address] ROSALVA WELSH . Facility:[facility] Start: 10-17-2021 End: 10-18-2021 Encounter for other preprocedural examination DR ROSALVA WELSH . Facility:[facility] Start: 10-09-2021 End: 10-10-[address] ROSALVA WELSH . Facility:[facility] Start: 10-08-2021 End: 10-09-[address] ROSALVA WELSH . Facility:[facility] Procedures Date Procedure Procedure Detail Performing Clinician Start: 09-27-2024 RECURRENT VAGINITIS (HTRX) Tran WESTFALL Work Phone: Start: 09-27-2024 Urnls dip stick/tabl et rgnt non-auto w/o micrscp Tran WESTFALL Work Phone: Start: 09-27-2024 IGP,APTIMA HPV,AGE GDLN Tran WESTFALL Work Phone: Start: 09-26-2024 US OB INCOMPLETE ANATOMY Rosalva Lio DO Work Phone: Start: 08-29-2024 Urnls dip stick/tabl et rgnt non-auto w/o micrscp Rosalva Anitha DO Work Phone: Start: 08-08-2024 TB DRUG SCREEN RAPI D (URINE) Rosalva Anitha DO Work Phone: Start: 08-05-2024 ALL CBC WITH AUTO DIFF Rosalva Anitha DO Work Phone: Laparoscopy Israel MALLORYCamelia Removal of foreign b jasmyn from foot Israel DEJAH Tonsillectomy and adenoidectomy Israel MALLORYCamelia Plan of Treatment Date Care Activity Detail Author Start: 11-28-2024 Influenza [facility] Start: 10-20-2024 End: 10-20-2024 Patient encounter procedure 10/20/2024 10:50 AM EDT Routine [facility] [address] [place] [address] Rosalva Welsh, DO [address] [place] [address] [facility] Start: 09-27-2024 End: 09-27-2025 CBC panel - Blood by Automated count CBC Lab Routine Diabetes mellitus screening Expected: 09/27/2024 (Approximate), Expires: 09/27/2025 [facility] Comment on above: Expected: 09/27/2024 (Approximate), Expires: 09/27/2025 Start: 09-27-2024 End: 09-27-2025 Measurement of glucose 1 hour after glucose challenge for glucose tolerance test Glucose tolerance, 1 hour Lab Routine Diabetes mellitus screening Expected: 09/27/2024 (Approximate), Expires: 09/27/2025 [facility] Comment on above: Expected: 09/27/2024 (Approximate), Expires: 09/27/2025 Start: 09-27-2024 End: 09-27-2024 Patient encounter procedure 09/27/2024 10:30 AM EDT Routine [facility] [address] [place] [id number] Tran Perez PA [address] [place] [address] [facility] Start: 08-29-2024 End: 08-29-2024 Patient encounter procedure 08/29/2024 2:30 PM EDT Routine [facility] [address] [place] [phone] Rosalva Welsh DO [address] [place] [address] [facility] Start: 08-29-2024 End: 08-29-2024 Professional / ancillary services management 08/29/2024 1:00 PM EDT Ancillary Procedure [facility] [address] [place] [phone] [facility] Start: 08-05-2024 End: 08-05-2025 ABO/Rh ABO/Rh Lab Routine Missed menses , unspecified gestational age Expected: 08/05/2024 (Approximate), Expires: 08/05/2025 [facility] Comment on above: Expected: 08/05/2024 (Approximate), Expires: 08/05/2025 Start: 08-05-2024 End: 10-05-2024 Alpha fetoprotein, maternal Alpha fetoprotein, maternal Lab Routine , unspecified gestational age Expected: 08/05/2024 (Approximate), Expires: 10/05/2024 [facility] Comment on above: Expected: 08/05/2024 [...] first trimester Expected: 08/05/2024 (Approximate), Expires: 08/05/2025 [facility] Comment on above: Expected: 08/05/2024 (Approximate), Expires: 08/05/2025 Start: 08-05-2024 End: 11-05-2024 US for US OB 14+ weeks anatomy scan Imaging Routine Screening, , for anatomic survey Expected: 08/05/2024, Expires: 11/05/2024 [facility] Comment on above: Expected: 08/05/2024 , Expires: 11/05/2024 Start: 05-19-2024 End: 05-19-2024 Patient encounter procedure 05/19/2024 3:55 PM EST Office Visit [facility] [address] [place] [phone] Rafaela Encarnacion APRN-JAMB CUTTER [address] [place] [address] [facility] Start: 12-15-2023 End: 12-15-2023 Patient encounter procedure 12/15/2023 11:00 AM EDT Office Visit [facility] [address] [place] [phone] Rosalva Welsh, [address] [place], [place] [phone] [facility] Start: 11-29-2023 Influenza vaccination Influenza Vacc ine (#1) [facility] Start: 05-11-2023 End: 05-11-2023 Patient encounter procedure 05/11/2023 4:05 PM EST Office Visit [facility] [address] [place] [phone] Rafaela Encarnacion, DATA ABSTRACTOR-JAMB CUTTER [address] [place] [address] [facility] Start: 11-28-2022 Influenza vaccination Influenza Vacc ine (#1) [facility] Bacteria identified in Urine by Culture Urine culture Microbiology Routine Missed menses Ordered: 08/05/2024 [facility] Comment on above: Ordered: 08/05/2024 CBC W Auto Different ial panel - Blood CBC and differential Lab Routine Missed menses , unspecified gestational age Ordered: 08/05/2024 [facility] Comment on above: Ordered: 08/05/2024 CHLAMYDIA TRACHOMATI S (GENITO/STI) CHLAMYDIA TRACHOMATIS (GENITO/STI) Lab Routine STD exposure Ordered: 09/27/2024 [facility] Comment on above: Ordered: 09/27/2024 Cytology Cervical or vaginal smear or scraping study Pap Smear Pathology and Cytology Routine Well woman exam with routine gynecological exam Ordered: 09/27/2024 [facility] Work Phone: Comment on above: Ordered: 09/27/2024 Hemoglobin A1c/Hemoglobin.total in Blood Hemoglobin A1c Lab Routine Missed menses , unspecified gestational age Ordered: 08/05/2024 [facility] Comment on above: Ordered: 08/05/2024 Hepatitis B virus surface Ag [Presence] in Serum or Plasma by Immunoassay Hepatitis B surface antigen Lab Routine Missed menses , unspecified gestational age Ordered: 08/05/2024 [facility] Comment on above: Ordered: 08/05/2024 Hepatitis C virus Ab [Presence] in Serum or Plasma by Immunoassay Hepatitis C antibody Lab Routine Missed menses , unspecified gestational age Ordered: 08/05/2024 [facility] Comment on above: Ordered: 08/05/2024 HIV-1/HIV-2 antigen/antibody combination immunoassay HIV-1 and HIV-2 antibodies Lab Routine Missed menses , unspecified gestational age Ordered: 08/05/2024 [facility] Comment on above: Ordered: 08/05/2024 Neisseria gonorrhoea e DNA [Presence] in Unspecified specimen by BINU with probe detection Neisseria gonorrhea DNA probe, direct Lab Routine STD exposure Ordered: 09/27/2024 [facility] Comment on above: Ordered: 09/27/2024 Reagin Ab [Presence] in Serum by RPR RPR Lab Routine Missed menses , unspecified gestational age Ordered: 08/05/2024 [facility] Comment on above: Ordered: 08/05/2024 Rubella antibody, IgG Rubella an tibody, IgG Lab Routine Missed menses , unspecified gestational age Ordered: 08/05/2024 [facility] Comment on above: Ordered: 08/05/2024 SURESWAB(R) ADVANCED VAGINITIS PLUS, TMA SURESWAB(R) ADVANCED VAGINITIS PLUS, TMA Pathology and Cytology Routine STD exposure Ordered: 09/27/2024 [facility] Comment on above: Ordered: 09/27/2024 Immunizations Immunization Date Immunization Notes Care Provider [facility] 03-10-2022 SARS-CoV-2 (COVID-19 ) [id number] Israel POND [facility] 01-09-2022 influenza virus vaccine, unspecified formulation [facility] 09-07-2020 SARS-CoV-2 (COVID-19 ) mRNA BNT-162b2 [facility] Comment on above: Result Comment: 2023: TPVAL 08-17-2020 SARS-CoV-2 (COVID-19 ) mRNA BNT-162b2 [facility] Comment on above: Result Comment: 2023: TPVAL Payers Date Payer Category Payer Private Health Insurance [facility]ICA[facility] [id number] 2024 Medicaid [id number] 2023 Unknown [id number] 2022 Unknown BCBS BCBS xxxxxx [id number] 2022-Present [phone] [address] [place] [address] [id number] 2022 Unknown [id number] 1999 Unknown [id number] 2.16.840.1.978991.3.579.2. 593 1999 Unknown [id number] 2.16.840.1.367363.3.579.2. 593 1999 Unknown [id number] 2.16.840.1.381401.3.579.2. 593 1999 Unknown [id number] 2.16.840.1.168504.3.579.2. 593 1999 Unknown [id number] 2.16.840.1.556602.3.579.2. 593 1999 Unknown [id number] 2.16.840.1.168434.3.579.2. 593 1999 Unknown [id number] 2.16.840.1.343336.3.579.2. 727 1999 Unknown [id number] 2.16.840.1.460594.3.579.2. 727 1999 Unknown [id number] 2.16.840.1.254196.3.579.2. 1259 1999 Unknown [id number] 2.16.840.1.845433.3.579.2. 1259 1999 Unknown [id number] 2.16.840.1.182217.3.579.2. 1259 1999 Unknown [id number] 2.16.840.1.621458.3.579.2. 1259 1999 Unknown [id number] 2.16.840.1.439127.3.579.2. 1259 1999 Unknown [id number] 2.16.840.1.160466.3.579.2. 1259 1959 Self-pay 1960 Unknown [id number] Unknown [id number] 2.16.840.1.101805.3.579.2. 593 Social History Date Type Detail Facility Start: 09-03-2022 End: 04-11-2024 Tobacco smoking status NHIS Never smoked tobacco [facility] Start: 09-03-2022 Tobacco use and exposure Smokeless tobacco non-user [facility] Start: 04-22-2023 End: 08-05-2024 Alcohol intake Lifetime non-drinker (finding) [facility] Start: 04-22-2023 End: 09-07-2023 History of Social function [facility] Start: 04-22-2023 End: 09-07-2023 Tobacco use panel [facility] Start: 2000 Sex Assigned At Female [facility] Start: 08-27-2022 Gender identity Identifies as female gender (finding) [facility] Start: 08-27-2022 Sexual orientation Heterosexual (finding) [facility] Tobacco smoking status Former sm okeless tobacco user, quit more than 30 days ago [facility] Start: 04-19-2024 [facility] Goals Date Patient Goal Desired Activity /State Personal health goal Functional Status Date Assessment Result Facility 04-11-2024 Functional Status N/A [facility] 12-31-2023 Functional Status N/A [facility] Clinical Notes 10-25-2021 to 09-27-2024 MALOU Moreno [...] negaitve TONSILLECTOMY 03/27/2010 WISDOM TOOTH EXTRACTION 01/26/2016 [place] teeth REVIEW OF SYSTEMS Review of Systems: [...] nursing note reviewed. Exam conducted with a flight operations manager present. Vitals: Estimated body mass index is 26.21 kg/m as calculated from the following: Height as of 08/03/23: 5' 5 . Weight as of 08/29/24: 157 lb 8 oz. BP: No LMP recorded (lmp unknown). Patient is . ASSESSMENT & PLAN ICD-10-CM 1. Second trimester ([facility]) Z34.92 POCT urinalysis dipstick manually resulted 2. 25 weeks gestation of ([facility]) Z3A.25 3. STD exposure Z20.2 SURESWAB(R) ADVANCED [...] of: MALOU Moreno documented in this encounter [facility] 08-29-2024 History of Present illness Narrative Reason [...] negaitve TONSILLECTOMY 03/27/2010 WISDOM TOOTH EXTRACTION 01/26/2016 [place] teeth REVIEW OF SYSTEMS Review of Systems: [...] nursing note reviewed. Exam conducted with a flight operations manager present. Vitals: Estimated body mass index is [...] Rosalva Welsh DO documented in this encounter [facility] 08-05-2024 History of Present illness Narrative Reason [...] negaitve TONSILLECTOMY 03/27/2010 WISDOM TOOTH EXTRACTION 01/26/2016 [place] No Known Allergies Vitals: Estimated body [...] or undercooked meat, and stay away from [facility]. Patient has also been advised to not [...] Marlene Dunn MA documented in this encounter [facility] 02-01-2024 History of Present illness Narrative Pt presents today for a pre-employment 5 panel drug screen for [employer]. Pt verified by photo ID. documented in this encounter [facility] 12-31-2023 Evaluation + Plan note Diagnostic Tests PendingHepatic Function Panel 12/31/23 [facility] [place] 12-31-2023 Note General Surgery Offi ce/Clinic Note [...] Immunizations Vaccine Date Status Comments SARS-CoV-2 (COVID-19) [id number] 03/10/2022 Recorded SARS-CoV-2 (COVID-19) mRNA BNT-162b2 vax 09/07/2020 Recorded 2023-12-25: TPVAL SARS-CoV-2 (COVID-19) m (more content not included)... [facility] Comment on above: Result Comment: Elec tronically Signed By: Israel POND MD\Date and Time Signed: 12/31/23 09:48 EDT 05-05-2023 History of Present illness Narrative Reason for Appointment: Patient ID: Loyda Adame is a 23 y.o. female who presents for Results Patient presents today via telephone call for a telehealth appointment. Patients Phone #: [phone] (mobile) Current Medications: has a current medication [...] uterine bleeding (AUB) Anxiety and depression ([facility]) Anxiety disorder DUB (dysfunctional uterine bleeding) Dysmenorrhea Endometriosis Menorrhagia Menstrual irregularity Nonsmoker Protein S deficiency ([facility]) Family History Problem Relation Name Age of [...] negaitve TONSILLECTOMY 03/27/2010 WISDOM TOOTH EXTRACTION 01/26/2016 [place] teeth No Known Allergies Vitals: Estimated body [...] Rosalva Welsh DO documented in this encounter [facility] 10-25-2021 Note OPERATIVE NOTE OPERATION DATE: 11/01/2021 PROCEDURE: Diagnostic laparoscopy with chromopertubation. PREOPERATIVE DIAGNOSIS: 1. Pelvic pain. 2. Possible tubal dysfunction. POSTOPERATIVE DIAGNOSIS: 1. Pelvic pain. 2. Possible tubal dysfunction. ANESTHESIA: General. SURGEON: Rosalva Welsh D.O. RENAL TECHNICIAN: DUC Sherman URINE OUTPUT: Yellow and [...] condition The [facility] Evaluation note Diagnosis Encounter to discuss test results Other specified counseling documented in this encounter [facility] HealthcareEvaluation note* Diagnosis Encounter for drug screening documented in this encounter [facility] HealthcareEvaluation note* Diagnosis Missed menses , unspecified gestational age Encounter for supervision of normal first in first trimester Screening, , for anatomic survey Encounter for anatomic survey documented in this encounter [facility] HealthcareEvaluation note* Diagnosis Second trimester state, incidental 20 weeks gestation of documented in this encounter [facility] HealthcareEvaluation note* Diagnosis Second trimester (HHS-HCC) state, incidental 25 weeks gestation of (HHS-HCC) STD exposure Well woman exam with routine gynecological exam Routine gynecological examination Diabetes mellitus screening Screening for diabetes mellitus documented in this encounter [facility] HealthcareHospital course Narrative No data available for this section [facility] Discharge instructions No data available for this section [facility] Progress note No data available for this section [facility] Summary Purpose Family History No Family History [...] AUTHOR 05/18/2019 [facility] DATE CREATED AUTHOR AUTHOR'S ORGANIZ ATION 07/20/2022 [facility] DATE CREATED AUTHOR AUTHOR'S ORGANIZ ATION 07/24/2024 [facility] DATE CREATED AUTHOR AUTHOR'S ORGANIZ ATION 09/29/2024 [facility] EPIC Reason for Visit (unrecogniz ed section and content) Reason Comments Results Reason Comments Amenorrhea Reason Comments Routine Visit Care Teams (unrecognized sec tion and content) Chargemaster Specialist Relationship Specialty Start Date End Date Shaw Jorgensen MD [address] [place] [facility] [place] [address] PCP - General Family Medicine 09/03/22 Chargemaster Specialist Relationship Specialty Start Date End Date Shaw Jorgensen MD [address] [place] [facility] [place] [address] PCP - General Family Medicine 09/03/22 Chargemaster Specialist Relationship Specialty Start Date End Date Shaw Jorgensen MD [address] [place] [address] PCP - General Family Medicine 09/03/22 Chargemaster Specialist Relationship Specialty Start Date End Date Shaw Jorgensen MD [address] [facility] [place] [address] PCP - General Family Medicine 09/03/22 Chargemaster Specialist Relationship Specialty Start Date End Date Shaw Jorgensen MD [address] [facility] [place] [address] PCP - General Family Medicine 09/03/22 Chargemaster Specialist Relationship Specialty Start Date End Date Shaw Jorgensen MD [address] [place] [address] PCP - General Family Medicine 09/03/22 Chargemaster Specialist Relationship Specialty Start Date End Date Shaw Jorgensen MD [address] [place] [address] PCP - General Family Medicine 09/03/22 FOR [...] BE BASED ON THE PRIMARY CLINICAL RECORDS. [facility] [employer] [facility]. provides no warranty or guarantee of the accuracy or completeness of information in this document.
--- OUTSIDE RECORDS SUMMARY | 2024-10-20 07:16 | XMS_ITS | Encounter Summary ---
Author Organization [facility] Address [address] [place] [address] Care Team Providers Care Founder & Ceo Name Role Phone Shaw Jorgensen MD Primary Care Provider [phone] Encounter Details Date Type Department Care Team (Late st Contact Info) Description 10/23/2022 Abstract [facility] [address] [place] [address] Tran Gomez PA [address] [place] [address] Social History Tobacco Use Types Packs/Day Years [...] AM EDT Routine [facility] [address] [place] [phone] Aden Welsh DO [address] [place], [place] [id number] documented as of this encounter Visit Diagnoses Not on filedocumented in this encounter Care Teams Founder & Ceo Relationship Specialty Start Date End Date Shaw Jorgensen MD [address] [facility] [place] [address] PCP - General Family Medicine 09/03/22 documented as of this encounter
--- OUTSIDE RECORDS SUMMARY | 2024-10-20 07:16 | XMS_ITS | Encounter Summary ---
Author Organization [facility] Address [address] [place] [address] Care Team Providers Care Storekeeper Steward Name Role Phone Shaw Jorgensen MD Primary Care Provider [phone] Encounter Details Date Type Department Care Team (Late st Contact Info) Description 08/15/2024 Abstract [facility] [address] [place] [place] [address] Aden Welsh, DO [address] [place] [address] Social History Tobacco Use Types Packs/Day Years [...] AM EDT Routine [facility] [address] [place] [phone] Aden Welsh DO [address] [place], [place] [id number] documented as of this encounter Visit Diagnoses Not on filedocumented in this encounter Care Teams Storekeeper Steward Relationship Specialty Start Date End Date Shaw Jorgensen MD [address] [facility] [place] [address] PCP - General Family Medicine 09/03/22 documented as of this encounter
--- OUTSIDE RECORDS SUMMARY | 2024-10-20 07:16 | XMS_ITS | Encounter Summary ---
Author Organization [facility] Address [address] [place] [address] Care Team Providers Care Central Office Operator Name Role Phone Shaw Jorgensen MD Primary Care Provider [phone] Encounter Details Date Type Department Care Team (Late st Contact Info) Description 08/08/2024 Abstract [facility] [address] [facility] [place] [address] Aden Welsh, DO [address] [place] [address] Social History Tobacco Use Types Packs/Day Years [...] AM EDT Routine [facility] [address] [place] [phone] Aden Welsh DO [address] [place], [place] [phone] documented as of this encounter Visit Diagnoses Not on filedocumented in this encounter Care Teams Central Office Operator Relationship Specialty Start Date End Date Shaw Jorgensen MD [address] [facility] [place] [address] PCP - General Family Medicine 09/03/22 documented as of this encounter
--- OUTSIDE RECORDS SUMMARY | 2024-10-20 07:16 | XMS_ITS | Clinical Summary ---
Author Organization [employer] [facility] Address [id number] [place] [id number] Care Team Providers Care Medical Bill Processor Name Role Phone Unavailable Primary Care Provider [...]
--- OUTSIDE RECORDS SUMMARY | 2024-10-20 07:16 | XMS_ITS | Encounter Summary ---
Author Organization [facility] Address [address] [place] [address] Care Team Providers Care Pump Runner Name Role Phone Shaw Jorgensen MD Primary Care Provider [phone] Encounter Details Date Type Department Care Team (Late st Contact Info) Description 08/05/2023 Clinisync Result Encounter [facility] External Department Unsolicited Tran Perez PA [address] [place] [address] Social History Tobacco Use Types Packs/Day Years [...] Routine [facility] [address] [facility] [place] [phone] Aden Welsh, DO [address] [place] [id number] documented as of this encounter Procedures Procedure Name Priority Date/Time Associated Diagnosis Comments US PELVIS W/ TRANSVAGINAL 08/05/2023 9:14 AM EDT documented in this encounter Results * US PELVIS W/ TRANSVAGINAL (08/05/2023 9:14 AM EDT) Anatomical Region Laterality Modality Other 08/05/2023 9:14 AM EDT Narrative 08/05/2023 9:16 AM EDT [address] [address] Ultrasound Report Signed Patient: LOYDA GIBSON MR#: [id number] : 2000 Acct:[id number] Age/Sex: 23 / F ADM Date: 08/05/23 Loc: US Attending Dr: Tran Perez Ordering Physician: Tran Perez Date of Service: 08/05/23 Procedure(s): US pelvis w/ transvaginal Accession Number(s): [id number] cc: Tran Perez; Shaw Jorgensen M.D. [address] [address] Patient Name: LOYDA GIBSON MRN: [id number] date: 2000 Sex: F Assigned Patient Location: US Current Patient Location: US Accession/Order Number: [id number] Exam Date: 08/05/2023 08:20 Report Date: 08/05/2023 [...] M.D. Signed By: 08/05/23915 DD/ 3 TD/TT: Senior C Software Developer: Procedure Note Radiology, Radiologist, MD - 08/05/2023 [facility] [place] [id number] Ultrasound Report Signed Patient: LOYDA GIBSON CMR#: [id number] : 2000Acct:[id number] Age/Sex: 23 / FADM Date: 08/05/23 Loc: US Attending Dr: Tran Perez Ordering Physician: Tran Perez Date of Service: 08/05/23 Procedure(s): US pelvis w/ transvaginal Accession Number(s): [id number] cc: Tran Perez; Shaw Jorgensen M.D. The [address] [address] Patient Name: LOYDA GIBSON MRN: [id number] date: 2000 Sex: F Assigned Patient Location: US Current Patient Location: US Accession/Order Number: [id number] Exam Date: 08/05/2023 08:20 Report Date: 08/05/2023 [...] Foreman M.D. Signed By:08/05/23915 DD/ 3 TD/TT: Senior C Software Developer: us [facility]an [facility] Final Result documented in this encounter Visit Diagnoses Not on filedocumented in this encounter Care Teams Pump Runner Relationship Specialty Start Date End Date Shaw Jorgensen MD [address] [place] [address] PCP - General Family Medicine 09/03/22 documented as of this encounter
--- OUTSIDE RECORDS SUMMARY | 2024-10-20 07:16 | XMS_ITS | Patient Health Record ---
Author Organization The [facility] in [place] Address [address] [place] [address] Care Team Providers Care Car Painter Name Role Phone Usman Jorgensen Primary Care Provider Jeanine Pablo Unavailable [phone] Allergies No Known Allergies Results Component Value Reference Range Notes COVID-19, Flu A+B IH Reviewed date:08/05/2024 01:06:37 PM Interpretation: Performing Lab: Notes/Report: COVID - FLU A - FLU B - Control + PREG QUANT HCG Reviewed date:05/31/2024 03:52:35 PM Interpretation: Performing Lab: Notes/Report: [facility] , HCG Quantitative 05605 15,000-200,000 6-8 WEEKS 10,000-100,000 5-6 WEEKS 5-50 0.2-1 WEEK 10,000-100,000 2-3 MONTHS 50-500 1-2 WEEKS 1,000-50,000 4-5 WEEKS 100-5,000 2-3 WEEKS 500-10,000 3-4 WEEKS Performing Lab: see note ML - [facility] LB HIV Ab/p24 Ag with Reflex Reviewed date:08/07/2024 06:03:37 PM Interpretation: Performing Lab: Notes/Report: [facility] , HIV Ab/p24 Ag Screen Non Reactive Non Reactive HIV Negative [address] [place], [place] [id number] Stage Driver: Fer Turpin PhD, Phone: [phone] HIV-1/HIV-2 antibodies and HIV-1 p24 antigen were NOT detected. There is no laboratory evidence of HIV infection. Performed at: CB - [facility] [place] Performing Lab: see note LC - [facility] LB DRUG SCREEN RAPID (URINE) Reviewed date:08/08/2024 08:42:34 PM Interpretation: Performing Lab: Notes/Report: [facility] , Cannabinoid Screen Urine NEGATIVE NEGATIVE Phencyclidine Screen Urine NEGATIVE NEGATIVE Cocaine Screen Urine NEGATIVE NEGATIVE Methamphetamines Screen Urine NEGATIVE NEGATIVE Opiate Screen Urine NEGATIVE NEGATIVE Amphetamine Screen Urine NEGATIVE NEGATIVE Benzodiazepines Screen Urine NEGATIVE NEGATIVE Tricyclic Antidepressant Urine NEGATIVE NEGATIVE Methadone Screen Urine NEGATIVE NEGATIVE Barbiturates Screen Urine NEGATIVE NEGATIVE Oxycodone Screen Urine NEGATIVE NEGATIVE Buprenorphine Screen Urine NEGATIVE NEGATIVE BAR (Barbiturates): 200 ng/mL OXY (Oxycodone): 100 ng/mL MTD (Methadone): 200 ng/mL BUP (Buprenorphine): 10 ng/mL THC (Cannabinoids): 50 ng/mL DRUG CLASS TEST SYSTEM CUT-OFF CONCENTRATIONS ARE AMP (Amphetamine): 500 ng/mL mAMP (Methamphetamine): 500 ng/mL OPI (Opiates): 100 ng/mL BZO (Benzodiazepines): 150 ng/mL PCP (Phencyclidine): 25 ng/mL TCA (Trycyclic Antidepressants): 300 ng/mL FOLLOWS: MILO (Cocaine): 150 ng/mL Performing Lab: see note ML - [facility] LB IGP,Aptima HPV,Age Gdln Reviewed date:10/03/2024 08:08:31 PM Interpretation: Performing Lab: Notes/Report: ANA NIEVES [facility] , Age Gdln ACOG Testing Note . 01 =G Adryan Kumar Source.............Danie pinto L-Low Normal,H-High Normal,LL-Alert Low,HH-Alert High Leia Carbajal MD, Performed at: TESTS RESULT FLAG UNITS REF RANGE LAB Age Lenny MCNEAL Lorena... - 01 FLAG LEGEND: [address] [place] [address] Clinician Provided Cytology Information <-Panic Low,>-Panic High,A-Abnormal,AA-Criti dulce Abnormal No. of containers..01 ThinPrep Vial IGP, rfx Aptima HPV ASCU Note . Satisfactory for evaluation. Carter Hall MD, The HPV DNA reflex criteria were not met with this specimen The Pap smear is a screening test designed to aid in the L-Low Normal,H-High Normal,LL-Alert Low,HH-Alert High Note: Note 03 [address] [place] [address] 03 [facility] [place] Performed by: 02 Stage Driver: Leia Carbajal MD, Phone: [phone] occur. Alicia Hanson, Sandblaster Glass (ASCP) detection of premalignant and malignant conditions of the uterine cervix. It is not a diagnostic procedure and Performed at: =G - [facility] . [address] [place] [address] [place], [place] [id number] Stage Driver: Carter Hall MD, Phone: [phone] Test Methodology: Note [address] [place], [place] [id number] TESTS RESULT FLAG UNITS REF RANGE LAB cancer. Both false-positive and false-negative reports do result therefore, no HPV testing was performed. <-Panic Low,>-Panic High,A-Abnormal,AA-Criti dulce Abnormal This liquid based ThinPrep(R) pap test was screened with FLAG LEGEND: Leia Carbajal MD, the use of an image guided system. Performed at: Performed at: [facility] Cyto Histo Specimen adequacy: 02 NEGATIVE FOR INTRAEPITHELIAL LESION OR MALIGNANCY. . 02 02 [facility] Cyto Histo DIAGNOSIS: 02 should not be used as the sole means of detecting cervical Performing Lab: see note [facility] LB US OB incomplete anatomy Reviewed date:09/26/2024 09:11:43 PM Interpretation: Performing Lab: Notes/Report: Source Facility: [place] [address] Ultrasound Report Signed Patient: LOYDA ADAME MR#: [id number] : 2000 Acct:[id number] Age/Sex: 24 / F ADM Date: 09/26/24 Loc: US Attending Dr: Rosalva Welsh D.O. Ordering Physician: Rosalva Welsh D.O. Date of Service: 09/26/24 Procedure(s): US OB incomplete anatomy Accession Number(s): [id number] cc: Rosalva Welsh D.O.; Bharti Jorgensen M.D. [place] [address] Patient Name: LOYDA ADAME MRN: [id number] date: 2000 Sex: F Assigned Patient Location: Current Patient Location: US Accession/Order Number: [id number] Exam Date: 09/26/2024 10:11 Report Date: 09/26/2024 [...] Boyd M.D. 09/26/2024 10:13 AM Dictation Location: [place] [address] Electronically authenticated by: [id number] Y Date: 09/26/2024 10:13 Dictated By: Gina Boyd M.D. Signed By: 09/26/24 1016 DD/ 1013 TD/TT: Seismograph Observer: [place] [address] Ultrasound Report Signed Patient: LOYDA ADAME MR#: [id number] : 2000 Acct:[id number] Age/Sex: 24 / F ADM Date: 09/26/24 Loc: US Attending Dr: Rosalva Welsh D.O. Ordering Physician: Rosalva Welsh D.O. Date of Service: 09/26/24 Procedure(s): US OB incomplete anatomy Accession Number(s): [id number] cc: Rosalva Welsh D.O. ; Bharti Jorgensen M.D. [place] [address] Patient Name: LOYDA ADAME MRN: [id number] date: 2000 Sex: F Assigned Patient Location: US Current Patient Location: US Accession/Order Number: [id number] Exam Date: 09/26/2024 10:11 Report Date: 09/26/2024 10:13 At the request of: ROSALVA WELSH DO Procedure: US OB incomplete anatomy ULTRASOUND OB INCOMPLETE ANATOMY COMPARISON: None CLINICAL DATA: Incomplete evaluation of the ventricular outflow tracts There is a single live intrauterine gestation in cephalic presentation. There is cardiac and somatic activity with heart rate of 163 bpm. The amniotic fluid volum e is subjectively normal. A four-chamber heart is visualized. An echogenic focus is visualized within the left ventricle which is a normal variant. The right and left ventricular outflow tracts were successfully visualized. US/US OB incomplete anatomy IMPRESSION: VISUALIZATION OF THE VENTRICULAR OUTFLOW TRACTS. Impression dictated by: Gina Boyd M.D. 09/26/2024 10:13 AM Dictation Location: [place] [address] Electronically authenticated by: [id number] Y Date: 09/26/2024 10:13 Dictated By: Gina Boyd M.D. Signed By: 09/26/24 1016 DD/ 1013 TD/TT: Seismograph Observer: Box Test Reviewed date:08/07/2024 06:03:37 PM Interpretation: Performing Lab: Notes/Report: [facility] , BOX Test Sent Out [place] [facility] Test Reference Lab [place] Test Date Sent 08/05/24 Performing Lab: see note - [facility] LB HCV Antibody RFX to Quant PC R Reviewed date:08/07/2024 06:03:37 PM Interpretation: Performing Lab: Notes/Report: [facility] , HCV Ab Non Reactive Non Reactive Interpretation: Comment . infection. Performed at: [facility] Not infected with HCV unless early or acute infection is [address] [place] [address] Stage Driver: Fer Turpin PhD, Phone: [phone] individual), or other evidence exists to indicate HCV suspected (which may be delayed in an immunocompromised Performing Lab: see note - [facility] AFP, Serum, Open Spina Bifid a Reviewed date:08/08/2024 08:42:34 PM Interpretation: Performing Lab: Notes/Report: N N ULTRASOUND [id number] 3 17 N 1 Y 156 N N N N N White/ [facility] , Results Report . Test Results: *Screen Negative* . Gest. Age on Collection Date 17.4 . weeks Gestat. Age Based On Ultrasound . by LMP and ultrasound are within 10 days. 17.4 on 08/05/2024 Recalculations are not recommended when gestational dating [age] Race . Weight 156 . lbs Insulin Dep Diabetes No . Multiple Gestation No . AFP Value 44.0 . ng/mL AFP MoM 1.13 . OSBR Risk 1 IN 8106 . Interpretation Comment . can identify up to 80% of open neural tube defects. Closed neural tube defects and some open defects may not be amniocentesis be offered to women age 35 and older. College of Obstetricians and Gynecologists recommends Down Syndrome or Trisomy 18. If screening for Down Syndrome calculated is based on the gestational age provided. MS-AFP detected by this test. This test does not screen for or Trisomy 18 is desired, contact Genetic Customer Interpretation: Screen Negative Services to discuss available options. The Hungarian This result is screen negative for OSB. The AFP MoM Comment: Comment . IDD 2.0 Twins 4.5 Director This test was developed and its performance characteristics Multiples Of Median Cutoffs Performed at: [facility] For AFP Elevations [address], [place] [id number] Abbreviation Definitions For further inquiries contact [facility] IDD - Insulin Dep Diabetes determined by [facility]. It has not been cleared or approved References: Available Upon Request. by the Food and Drug Administration. OSBR - Open Spina Bifida Risk Genetics Services at [phone]. Marin 2.5 Black 2.8 Radha Bautista, Ph.D., [facility] Stage Driver: Amado Tinoco [facility], Phone: [phone] Performing Lab: see note [facility] LB Type and Screen Reviewed date:08/07/2024 06:03:37 PM Interpretation: Performing Lab: Notes/Report: [facility] , Blood Type A Positive Antibody Screen NEGATIVE RUBELLA AB IGG Reviewed date:08/07/2024 06:03:37 PM Interpretation: Performing Lab: Notes/Report: [facility] , Rubella Antibodies, IgG 2.66 Immune > 0.99 index Non-immune <0.90 Stage Driver: Fer Turpin PhD, Phone: [phone] Immune >0.99 Equivocal 0.90 - 0.99 [address] [place], [place] [id number] Performed at: [facility] Performing Lab: see note [facility] LB GLYCOHEMOGLOBIN A1C Reviewed date:08/07/2024 06:03:37 PM Interpretation: Performing Lab: Notes/Report: [facility] , Glycohemoglobin A1C 4.7 4.5-6.2 % ADA THERAPEUTIC TARGET < 7.0 ACTION SUGGESTED ADA RECOMMENDED LIMIT 4.0 - 6.0 > 7.0 Estimated Average Glucose 88 Performing Lab: see note ML - [facility] LB CBC AUTO DIFF Reviewed date:08/05/2024 01:06:37 PM Interpretation: Performing Lab: Notes/Report: [facility] , White Blood Count 8.1 4.0-11.0 10 3/uL Red Blood Count 3.89 4.20-5.40 10 6/uL Hemoglobin 12.3 12.0-16.0 g/dL Hematocrit 35.4 36.0-48.0 % Mean Corpuscular Volume 91.0 81.0-99.0 fL Mean Corpuscular Hemoglobin 31.6 26.7-34.0 pg Mean Corpuscular HGB Conc 34.7 29.9-35.2 g/dL Red Cell Distribution Width 13.8 11.0-15.0 % Platelet Count 307 150-450 10 3/uL Mean Platelet Volume 9.5 9.5-13.5 fL Neutrophils Percent Auto 75.7 43.0-75.0 % Lymphocytes Percent Auto 15.5 20.5-60.0 % Monocytes Percent Auto 5.9 1.7-12.0 % Eosinophils Percent Auto 2.0 0.9-7.0 % Basophils Percent Auto 0.5 0.2-2.0 % Immature Granulocytes Pct Auto 0.4 0.0-0.5 % Neutrophils Absolute Auto 6.1 1.4-6.5 10 3/uL Lymphocytes Absolute Auto 1.3 1.2-3.8 10 3/uL Monocytes Absolute Auto 0.5 0.3-0.8 10 3/uL Eosinophils Absolute Auto 0.2 0.0-0.7 10 3/uL Basophils Absolute Auto 0.0 0.0-0.1 10 3/uL Immature Granulocytes Abs Auto 0.03 0.00-0.03 10 3/uL Performing Lab: see note - [facility] LB HCG Qualitative* Reviewed date:05/04/2024 07:51:54 AM Interpretation: Performing Lab: Notes/Report: [facility] , HCG Qualitative POSITIVE NEGATIVE Performing Lab: see note ML - [facility] LB PREG QUANT HCG Reviewed date:05/04/2024 12:27:10 PM Interpretation: Performing Lab: Notes/Report: [facility] , HCG Quantitative 205 50-500 1-2 WEEKS 100-5,000 2-3 WEEKS 1,000-50,000 4-5 WEEKS 5-50 0.2-1 WEEK 10,000-100,000 5-6 WEEKS 10,000-100,000 2-3 MONTHS 15,000-200,000 6-8 WEEKS 500-10,000 3-4 WEEKS Performing Lab: see note ML - [facility] LB PROF CHEM 8 (BAS METB) Reviewed date:04/21/2024 05:35:33 PM Interpretation: Performing Lab: Notes/Report: [facility] , Sodium 138 136-145 mmol/L Potassium 3.8 3.5-5.1 mmol/L Chloride 103 98-107 mmol/L Carbon Dioxide 25.3 21.0-32.0 mmol/L Anion Gap 13.5 Glucose 81 74-106 mg/dL Blood Urea Nitrogen 16.0 7.0-18.0 mg/dL Creatinine 0.87 0.55-1.02 mg/dL Estimated GFR ( Kourtney >60 >=60 mL/min/1.73m 2 Estimated GFR (Non- Patsy >60 >=60 mL/min/1.73m 2 BUN Creatinine Ratio 18.4 Calcium 8.5 8.5-10.1 mg/dL Performing Lab: see note ML - [facility] LB LIVER PROFILE Reviewed date:04/21/2024 05:35:33 PM Interpretation: Performing Lab: Notes/Report: [facility] , Bilirubin Total 0.4 0.2-1.0 mg/dL Bilirubin Direct 0.1 0.0-0.2 mg/dL Aspartate Amino Transferase 10 15-37 U/L Alanine Aminotransferase 14 14-59 U/L Alkaline Phosphatase 69 46-116 U/L Total Protein 6.9 6.4-8.2 g/dL Albumin Level 3.3 3.4-5.0 g/dL Globulin 3.6 Albumin Globulin Ratio 0.9 Performing Lab: see note ML - [facility] CBC AUTO DIFF Reviewed date:04/21/2024 05:35:33 PM Interpretation: Performing Lab: Notes/Report: [facility] , White Blood Count 6.1 4.0-11.0 10 3/uL Red Blood Count 4.38 4.20-5.40 10 6/uL Hemoglobin 13.4 12.0-16.0 g/dL Hematocrit 39.7 36.0-48.0 % Mean Corpuscular Volume 90.6 81.0-99.0 fL Mean Corpuscular Hemoglobin 30.6 26.7-34.0 pg Mean Corpuscular HGB Conc 33.8 29.9-35.2 g/dL Red Cell Distribution Width 12.8 11.0-15.0 % Platelet Count 279 150-450 10 3/uL Mean Platelet Volume 9.8 9.5-13.5 fL Neutrophils Percent Auto 57.0 43.0-75.0 % Lymphocytes Percent Auto 29.4 20.5-60.0 % Monocytes Percent Auto 8.5 1.7-12.0 % Eosinophils Percent Auto 3.4 0.9-7.0 % Basophils Percent Auto 1.5 0.2-2.0 % Immature Granulocytes Pct Auto 0.2 0.0-0.5 % Neutrophils Absolute Auto 3.5 1.4-6.5 10 3/uL Lymphocytes Absolute Auto 1.8 1.2-3.8 10 3/uL Monocytes Absolute Auto 0.5 0.3-0.8 10 3/uL Eosinophils Absolute Auto 0.2 0.0-0.7 10 3/uL Basophils Absolute Auto 0.1 0.0-0.1 10 3/uL Immature Granulocytes Abs Auto 0.01 0.00-0.03 10 3/uL Performing Lab: see note ML - [facility] US right upper quadrant Reviewed date:03/30/2024 03:20:05 PM Interpretation: Performing Lab: Notes/Report: Source Facility: [facility] [place] [address] [place] [address] Ultrasound Report Signed Patient: LOYDA ADAME MR#: [id number] : 2000 Acct:[id number] Age/Sex: 24 / F ADM Date: 03/29/24 Loc: US Attending Dr: Bharti Jorgensen M.D. Ordering Physician: Bharti Jorgensen M.D. Date of Service: 03/29/24 Procedure(s): US right upper quadrant Accession Number(s): [id number] cc: Bharti Jorgensen M.D. The [address] [address] Patient Name: LOYDA ADAME MRN: [id number] date: 2000 Sex: F Assigned Patient Location: US Current Patient Location: US Accession/Order Number: [id number] Exam Date: 03/29/2024 06:59 Report Date: 03/29/2024 07:45 At the request of: BHARTI JORGENSEN Procedure: US right upper quadrant EXAM: US right upper quadrant HISTORY: right upper quadrant abdominal pain R10.11 COMPARISON: 12/12/2023 TECHNIQUE: Grayscale, color and Doppler FINDINGS: The liver is normal in size, contour and echotexture measuring 15.4 cm in length. No focal solid mass. Hepatopedal flow in the main portal vein. The gallbladder is normal in size. The wall measures 2.2 mm, normal. Negative sonographic Pacheco sign. Multiple echogenic foci, cholelithiasis. The common bile duct measures 2.8 mm, normal. The pancreas is normal in appearance The right kidney is normal measuring 11.1 x 4.3 x 4.4 cm. No free fluid US/US right upper quadrant IMPRESSION: Cholelithiasis without evidence of acute cholecystitis Electronically authenticated by: NIKO FOREMAN Date: 03/29/2024 07:45 Dictated By: Niko Foreman M.D. Signed By: 03/29/24 0747 DD/ TD/TT: Seismograph Observer: The [address] [address] Ultrasound Report Signed Patient: LOYDA ADAME MR#: [id number] : 2000 Acct:[id number] Age/Sex: 24 / F ADM Date: 03/29/24 Loc: US Attending Dr: Parveen Jorgensen M.D. Ordering Physician: Bharti Jorgensen M.D. Date of Service: 03/29/24 Procedure(s): US right upper quadrant Accession Number(s): [id number] cc: Bharti Jorgensen M.D. The [place] [id number] Patient Name: LOYDA ADAME MRN: [id number] date: 2000 Sex: F Assigned Patient Location: US Current Patient Location: US Accession/Order Number: [id number] Exam Date: 06:59 Report Date: 03/29/2024 07:45 At the request of: BHARTI JORGENSEN Procedure: US right upper quadrant EXAM: US right upper quadrant HISTORY: right upper quadrant abdominal pain R10.11 COMPARISON: 12/12/2023 TECHNIQUE: Grayscale , color and Doppler FINDINGS: The liver is normal in size, contour and echotexture measuring 15.4 cm in length. No focal solid mass. Hepatopedal flow in the main portal vein. The gallbladder is normal in size. The wall measures 2.2 mm, normal. Negative sonographic Pacheco sign. Multiple echogenic foci, cholelithiasis. The common bile duct measures 2.8 mm, normal. The pancreas is normal in appearance The right kidney is normal measuring 11.1 x 4.3 x 4.4 cm. No free fluid US/US right upper quadrant IMPRESSION: Cholelithiasis without evidence of acute cholecystitis Electronically authenticated by: NIKO FOREMAN Date: 03/29/2024 07:45 Dictated By: Niko Foreman M.D. Signed By: 03/29/2447 DD/ TD/TT: Seismograph Observer: CBC AUTO DIFF Reviewed date:01/14/2024 12:59:57 PM Interpretation: Performing Lab: Notes/Report: [facility] , White Blood Count 7.7 4.0-11.0 10 3/uL Red Blood Count 4.53 4.20-5.40 10 6/uL Hemoglobin 13.9 12.0-16.0 g/dL Hematocrit 41.1 36.0-48.0 % Mean Corpuscular Volume 90.7 81.0-99.0 fL Mean Corpuscular Hemoglobin 30.7 26.7-34.0 pg Mean Corpuscular HGB Conc 33.8 29.9-35.2 g/dL Red Cell Distribution Width 11.9 11.0-15.0 % Platelet Count 287 150-450 10 3/uL Mean Platelet Volume 9.8 9.5-13.5 fL Neutrophils Percent Auto 54.4 43.0-75.0 % Lymphocytes Percent Auto 30.5 20.5-60.0 % Monocytes Percent Auto 7.1 1.7-12.0 % Eosinophils Percent Auto 6.5 0.9-7.0 % Basophils Percent Auto 1.2 0.2-2.0 % Immature Granulocytes Pct Auto 0.3 0.0-0.5 % Neutrophils Absolute Auto 4.2 1.4-6.5 10 3/uL Lymphocytes Absolute Auto 2.4 1.2-3.8 10 3/uL Monocytes Absolute Auto 0.6 0.3-0.8 10 3/uL Eosinophils Absolute Auto 0.5 0.0-0.7 10 3/uL Basophils Absolute Auto 0.1 0.0-0.1 10 3/uL Immature Granulocytes Abs Auto 0.02 0.00-0.03 10 3/uL Performing Lab: see note ML - [facility] US right upper quadrant Reviewed date:12/13/2023 10:34:43 AM Interpretation: Performing Lab: Notes/Report: Source Facility: [place] [address] Ultrasound Report Signed Patient: LOYDA ADAME MR#: [id number] : 2000 Acct:[id number] Age/Sex: 23 / F ADM Date: 12/12/23 Loc: US Attending Dr: Bharti Jorgensen M.D. Ordering Physician: Bharti Jorgensen M.D. Date of Service: 12/12/23 Procedure(s): US right upper quadrant Accession Number(s): [id number] cc: Bharti Jorgensen M.D. [place] [address] Patient Name: LOYDA ADAME MRN: [id number] date: 2000 Sex: F Assigned Patient Location: US Current Patient Location: Accession/Order Number: [id number] Exam Date: 12/12/2023 09:15 Report Date: 12/13/2023 04:55 At the request of: BHARTI JORGENSEN Procedure: US right upper quadrant EXAMINATION: US right upper quadrant HISTORY: Right upper quadrant abdominal pain R10.11 COMPARISON: No relevant comparison available. TECHNIQUE: Transabdominal evaluation of the right upper quadrant. FINDINGS: LIVER: Normal size and echotexture. Color Doppler demonstrates patent hepatic veins. PORTAL VEIN: Duplex Doppler demonstrates normal hepatopetal flow pattern with flow velocity averaging 27 cm/s. GALLBLADDER: Multiple small stones within the noninflamed gallbladder. Negative sonographic Pacheco's sign. BILIARY: No abnormal dilation or stones. Common bile duct diameter is within normal limits. PANCREAS: No visible mass, abnormal atrophy, or duct dilation. KIDNEY: No hydronephrosis. No visible mass or stones. Size: 10.5 x 3.7 x 4.0 cm US/US right upper quadrant IMPRESSION: 1. Cholelithiasis. No ultrasound evidence of acute cholecystitis. Electronically authenticated by: HECTOR HELMS Date: 12/13/2023 04:55 Dictated By: Hector Helms M.D. Signed By: 12/13/23 0459 DD/ 0455 TD/TT: Seismograph Observer: [place] [address] Ultrasound Report Signed Patient: LOYDA ADAME MR#: [id number] : 2000 Acct:[id number] Age/Sex: 23 / F ADM Date: 12/12/23 Loc: US Attending Dr: Parveen Jorgensen M.D. Ordering Physician: Bharti Jorgensen M.D. Date of Service: 12/12/23 Procedure(s): US right upper quadrant Accession Number(s): [id number] cc: Bharti Jorgensen M.D. [address] [address] Patient Name: LOYDA ADAME MRN: [id number] date: 2000 Sex: F Assigned Patient Location: US Current Patient Location: Accession/Order Number: [id number] Exam Date: 12/12/2023 09:15 Report Date: 12/13/2023 04:55 At the request of: BHARTI JORGENSEN Procedure: US right upper quadrant EXAMINATION: US righ t upper quadrant HISTORY: Right upper quadrant abdominal pain R10.11 COMPARISON: No relevant comparison available. TECHNIQUE: Transabdominal evaluation of the right upper quadrant. FINDINGS: LIVER: Normal size and echotexture. Color Doppler demonstrates patent hepatic veins. PORTAL VEIN: Duplex Doppler demonstrates normal hepatopetal flow pattern with flow velocity averaging 27 cm/s. GALLBLADDER: Multipl e small stones within the noninflamed gallbladder. Negative sonographic Pacheoc's sign. BILIARY: No abnormal dilation or stones. Common bile duct diameter is within normal limits. PANCREAS: No visible mass, abnormal atrophy, or duct dilation. KIDNEY: No hydronephrosis. No visible mass or stones. Size: 10.5 x 3.7 x 4.0 cm US/US right upper quadrant IMPRESSION: 1. Cholelithiasis. N o ultrasound evidence of acute cholecystitis. Electronically authenticated by: HECTOR HELMS Date: 12/13/2023 04:55 Dictated By: Hector Helms M.D. Signed By: 12/13/23 0459 DD/ 0455 TD/TT: Seismograph Observer: SARS-CoV-2 Ag* Reviewed date:11/18/2023 12:52:17 PM Interpretation: Performing Lab: Notes/Report: [facility] , SARS-CoV-2 Ag NEGATIVE NEGATIVE authorized for the duration of the declaration that Act, 21 U.S.C. 360bbb-3(b)(1), unless the declaration is complexity testing. This test has been authorized only for emergency use of in vitro diagnostic tests for detection and/or diagnosis of Covid-19 under section 564(b)(1) of the viruses or pathogens. The emergency use of this test is CLIA that meet the requirements to perform moderate or high authorized by the FDA under an Emergency Use Authorization circumstances exist justifying the authorization of terminated or authorization is revoked sooner. the detection of proteins from SARS-CoV-2, not for any other (EUA) for use by authorized laboratories certified under This test has not been FDA cleared or approved, but has been Performing Lab: see note ML - [facility] LB Urine Culture, Routine Reviewed date:08/09/2024 09:15:03 PM Interpretation: Performing Lab: Notes/Report: [facility] , Urine Culture, Routine See Below For Report Urine Culture, Routine Urine Culture, Routine Culture shows les s than 10,000 colony forming units of bacteria per Urine Culture, Routine Urine Culture, Routine milliliter of uri ne. This colony count is not generally considered Urine Culture, Routine Urine Culture, Routine to be clinically significant. Urine Culture, Routine Urine Culture, Routine Performed at: [facility] Urine Culture, Routine Urine Culture, Routine [address] [place] [phone] Urine Culture, Routine Urine Culture, Routine Stage Driver: Iban Turpin PhD, Phone: [phone] Urine Culture, Routine Performing Lab: see note [facility] SEE RE[facility] - Clinical Supervisor Id information not found for OBX-specific international editorial producer legend HBsAg Screen Reviewed date:08/07/2024 06:03:37 PM Interpretation: Performing Lab: Notes/Report: [facility] , HBsAg Screen Negative Negative Stage Driver: Fer Turpin PhD, Phone: [phone] Performed at: [address] [id number] Performing Lab: see note [facility] Rapid Plasma Reagin, Quant Reviewed date:08/07/2024 06:03:37 PM Interpretation: Performing Lab: Notes/Report: [facility] , Rapid Plasma Reagin, Quant Non Reactive NonRea<1:[address] [place] [phone] screening and diagnosis of syphilis. This test is Performed at: [facility] RPR and Confirmatory Treponema pallidum Antibodies infection, a reflex cascade that includes both RPR and a Treponema pallidum (Syphilis) Screening [place] (435993) or Rapid Plasma Reagin (RPR) Test With Reflex to Quantitative (889652). intended for following treatment response in patients being treated for syphilis infection. To screen for syphilis treponema-specific assay should be utilized, such as Please Note: This test does not meet current guidelines for Stage Driver: Fer Turpin PhD, Phone: [phone] Performing Lab: see note [facility] Reason For Referral Diagnosis 1 Calculus of gallblad guillermo without cholecystitis without obstruction (K80.20) [facility] Referring Provider First Name Usman Referring Provider Last Name Jameel Referring Provider Speciality [facility] leonardo Referred Provider Israel Dugan Referred Provider Specialty General Surg chris Referral Priority Routine Reason gallstone Diagnosis 1 Right upper quadrant abdominal pain (R10.11) Ref[facility] Referring Provider First Name Usman Referring Provider Last Name Jameel Referring Provider Speciality [facility] leonardo Referred Provider Israel Dugan Referred Provider Specialty General Surg chris Referral Priority Routine Medications Medication SIG (Take, Route, Frequency, Duration) Notes Start Date End Date Status QUEtiapine Fumarate 50 MG TAKE 1 TABLETS BY MOUTH EVERY DAY for 90 days Active rOPINIRole HCl 5 MG TAKE 1 TABLET BY MALISSA TH EVERY DAY AT BEDTIME for 90 Active Ondansetron 4 MG 1 tablet on the tong ue and allow to dissolve Orally Once a day for 30 days 12/09/2023 Active Protonix 40 MG 1 tablet Orally Once a day for 30 days 03/24/2024 Active Hyoscyamine Sulfate 0.125 MG 1-2 tabs SL SL every 4 hrs PRN abd pain 12/09/2023 Active Azelastine HCl 0.05 % 1 drop into affect ed eye Ophthalmic qd 03/31/2024 Active Cetirizine HCl 10 MG TAKE 1 TABLET BY MO UTH EVERY DAY for 90 Active DULoxetine HCl 60 MG TAKE 2 CAPSULE BY M OUTH EVERY DAY Orally Once a day for 90 days Active Social History Tobacco Use: Social History Observation Description Date Details (start date - stop date) Never Smoker NA - NA Tobacco Use/Smoking Question Answer Notes Patient is a nonsmoker Alcohol Screen (Audit-C) Question Answer Notes Did you have a drink containing alcohol in the p ast year? No Points 0 Interpretation Negative AUDIT-C (Standard) Question Answer Notes Did you [...] less (1 point) Points 1 Interpretation Negative Problems Problem Type SNOMED Code ICD Code Onset Dates Problem Status W/U Status Risk Notes Problem 797723954 Calculus of gallbladder without cholecystitis without obstruction (K80.20) Active confirmed Problem Orthostatic hypotension (14060134) Orthostatic hypotension (I95.1) Active confirmed Problem Depression (227461574) Depression (F32.9) Active confirmed Problem Attention deficit disorder (62069115) ADD (attention deficit disorder) (F90.0) Active confirmed Problem Insomnia (042918613) Insomnia (G47.00) Active confirmed Problem Alopecia (16604568) Hair loss (L65.9) Active co nfirmed Problem Scoliosis (938661751) Scoliosis (M41.9) Active confirmed Problem Right upper quadrant pain (284505474) Right upper quadrant abdominal pain (R10.11) Active confirmed Problem Overweight (521754169) Over weight (E66.3) Active confirmed Problem Seasonal allergic rhinitis (735093310) Allergic rhinitis, seasonal (J30.2) Active confirmed Problem Menometrorrhagia (690148540) Menometrorrhagia (N92.1) Active confirmed Problem Peripheral vertigo (30861716) Vertigo, peripheral (H81.399) Active confirmed Problem COVID-19 (554030631) COVID-19 (U07.1) Active confirmed Vital Signs Temperature 98.1 degrees Fahrenheit 05/31/2024 Blood pressure diastolic 62 mm Hg 05/31/2024 Height 65 in 05/31/2024 Blood pressure systolic 108 mm Hg 05/31/2024 Weight 161 lbs 05/31/2024 BMI 26.79 kg/m2 05/31/2024 Encounters Encounter Location Date Provider Diagnosis [facility] [address] [place] [address] 12/09/2023 Usman Hoy Right upper quadrant abdominal pain R10.11 ; Depression F32.9 ; ADD (attention deficit disorder) F90.0 and Insomnia G47.[address] [address] 03/24/2024 Usman Hoy Right upper quadrant abdominal pain R10.[address] [address] 05/31/2024 Jeanine Bev Cough R05.9 ; URI (upper respiratory infection) J06.9 and Z33.1 [place] [address] [facility] [place] [address] 11/16/2023 Usman Jorgensen Nasal congestion R09 .81 [facility] [address] [facility] [place] [address] 11/18/2023 Usman Jorgensen [facility] [address] [facility] [place] [address] 12/21/2023 Usman Jorgensen Calculus of gallblad guillermo without cholecystitis without obstruction K80.20 [facility] [address] [facility] [place] [address] 01/05/2024 Usman Jorgensen [facility] [address] [facility] [place] [address] 03/30/2024 Usman manuel [facility] [address] [facility] [place] [address] 05/04/2024 Usman manuel [facility] [address] [facility] [place] [address] 05/31/2024 Jeanine Pablo Assessments Encounter Date Diagnosis (ICD Code) Assessment Notes Treatment Notes Treatment Clinical Notes Section Notes 12/09/2023 Right upper quadrant abdominal pain (ICD-10 - R10.11) 12/09/2023 Depression (ICD-10 - F32.9) 03/24/2024 Right upper quadrant abdominal pain (ICD-10 - R10.11) 05/31/2024 Cough (ICD-10 - R05.9) 05/31/2024 URI (upper respiratory infection) (ICD-10 - J06.9) likely viral supportive care if not improving, worsens fu 11/16/2023 Nasal congestion (ICD-10 - R09.81) 12/21/2023 Calculus of gallbladder without cholecystitis without obstruction (ICD-10 - K80.20) 05/31/2024 (ICD-10 - Z33.1) 12/09/2023 ADD (attention deficit disorder) (ICD-10 - F90.0) 12/09/2023 Insomnia (ICD-10 - G47.00) Plan Of Treatment Pending Test Test Name Order Date CMP (COMPLETE METABOLIC PANEL) HEMOGLOBIN A1C (GLYCO) 12/19/2022 IRON, TOTAL 12/19/2022 CBC WITH DIFF 12/19/2022 VITAMIN D, 25 LEVEL (TOTAL) 12/19/2022 Sleep study - Diagnostic Polysonogram Insulin Level 12/19/2022 Covid-19 PCR (CVDTBH) 11/16/2023 US ABD 12/09/2023 US ABD 03/24/2024 THYROID PANEL (T4/TSH/FREE T3) SARS-CoV-2 BINU 10/08/2023 Insurance Providers Payer Name Payer Address Payer Phone Subscriber Number Group Number Insured Name Patient Relationship to Insured Coverage Start Date Coverage End Date [employer] [place] [employer] [address] [place] [address] [id number] Loyda Adame Self - patient is the insured Medical (General) History Medical History History ICD Code Over weight E66.3 Depression F32.9 Allergic rhinitis, seasonal J30.2 Vertigo, peripheral H81.399 COVID-19 U07.1 Orthostatic hypotension I95.1 Menometrorrhagia N92.1 Insomnia G47.00 Scoliosis M41.9 ADD (attention deficit disorder) F90.0 Surgical History Surgery Date(Month/Year) Laproscopy 09/2021
--- OUTSIDE RECORDS SUMMARY | 2024-10-20 07:16 | XMS_ITS | Encounter Summary ---
Author Organization [facility] Address [address] [place] [address] [address] Care Team Providers Care Division Supervisor Name Role Phone Shaw Jorgensen MD Primary Care Provider [phone] Encounter Details Date Type Department Care Team (Late st Contact Info) Description 10/05/2024 Orders Only [facility] [address] [place] [address] Mariana Bravo LPN [address] [place] [address] Social History Tobacco Use Types Packs/Day Years [...] AM EDT Routine [facility] [address] [place] [address] Aden Welsh DO [address] [facility] [place] [address] documented as of this encounter Goals Goal Patient Goal Type Associated Problems Recent Progress Patient-Stated? Author Reminders Care Plan OB Reminders No Open Scheduling, Background documented as of this encounter Procedures Procedure Name Priority Date/Time Associated Diagnosis Comments PAP SMEAR Routine 09/27/2024 12:00 AM EDT documented in this encounter Results * Pap Smear (09/27/2024 12:00 AM EDT) Swab Cervical swab / Unknown us [facility] CYTOLOGY ORDERABLES Final Re sult EXTERNAL LAB documented in this encounter Visit Diagnoses Not on filedocumented in this encounter Additional Health Concerns Active Problems Noted Date Diagnosed Date OB Reminders 09/20/2024 documented as of this encounter Care Teams Division Supervisor Relationship Specialty Start Date End Date Shaw Jorgensen MD [address] [place] [place] [address] PCP - General Family Medicine 09/03/22 documented as of this encounter
--- OUTSIDE RECORDS SUMMARY | 2024-10-20 07:16 | XMS_ITS | Encounter Summary ---
Author Organization [facility] Address [address] [place] [address] Care Team Providers Care Translator And Interpreter Name Role Phone Shaw Jorgensen MD Primary Care Provider [phone] Encounter Details Date Type Department Care Team (Late st Contact Info) Description 08/30/2024 Abstract [facility] BCP OB [address] [facility] [place] [address] Aden Welsh, DO [address] [place] [address] Social History Tobacco Use Types Packs/Day Years [...] [address] [place] [address] Aden Welsh DO [address] [place], [place] [phone] documented as of this encounter Visit Diagnoses Not on filedocumented in this encounter Care Teams Translator And Interpreter Relationship Specialty Start Date End Date Shaw Jorgensen MD [address] [facility] [place] [address] PCP - General Family Medicine 09/03/22 documented as of this encounter
--- OUTSIDE RECORDS SUMMARY | 2024-10-20 07:16 | XMS_ITS | Encounter Summary ---
Author Organization [facility] Address [address] [place] [address] Care Team Providers Care Peripheral Equipment Operator Name Role Phone Shaw Jorgensen MD Primary Care Provider [phone] Encounter Details Date Type Department Care Team (Late st Contact Info) Description 12/09/2023 Orders Only [facility] [address] [place] [address] Vaishali Villagomez LPN [address] [place], [place] [id number] Social History Tobacco Use Types Packs/Day Years [...] BCP OB [address] [place] [address] Aden Welsh DO [address] [facility] [place] [address] documented as of this encounter Procedures Procedure Name Priority Date/Time Associated Diagnosis Comments PAP SMEAR Routine 12/08/2022 12:00 AM EDT documented in this encounter Results * Pap Smear (12/08/2022 12:00 AM EDT) Swab Cervical swab / Unknown Anitha Nurse [facility] CYTOLOGY ORDERABLES Final Result EXTERNAL LAB documented in this encounter Visit Diagnoses Not on filedocumented in this encounter Care Teams Peripheral Equipment Operator Relationship Specialty Start Date End Date Shaw Jorgensen MD [address] [facility] [place] [address] PCP - General Family Medicine 09/03/22 documented as of this encounter
--- OUTSIDE RECORDS SUMMARY | 2024-10-20 07:16 | XMS_ITS | Encounter Summary ---
Author Organization [facility] Address [address] [place] [address] Care Team Providers Care Stock Clipper Name Role Phone Shaw Jorgensen MD Primary Care Provider [phone] Encounter Details Date Type Department Care Team (Late st Contact Info) Description 08/15/2024 Abstract [facility] [address] [facility] [place] [address] Aden Welsh, DO [address] [facility] [address] [place] [address] Social History Tobacco Use Types Packs/Day Years [...] AM EDT Routine [facility] BCP OB [address] [facility] [place] [phone] Aden Welsh DO [address] [place], [place] [address] documented as of this encounter Visit Diagnoses Not on filedocumented in this encounter Care Teams Stock Clipper Relationship Specialty Start Date End Date Shaw Jorgensen MD [address] [facility] [place] [address] PCP - General Family Medicine 09/03/22 documented as of this encounter
--- OUTSIDE RECORDS SUMMARY | 2024-10-20 07:16 | XMS_ITS | Encounter Summary ---
Author Organization [facility] Address [address] [place] [address] Care Team Providers Care Headend Technician Name Role Phone Shaw Jorgensen MD Primary Care Provider [phone] Encounter Details Date Type Department Care Team (Late st Contact Info) Description 09/01/2024 Abstract [facility] BCP OB [address] [facility] [place] [address] Aden Welsh, DO [address] [facility] [place] [address] Social History Tobacco Use Types Packs/Day Years [...] AM EDT Routine [facility] BCP OB [address] [facility] [place] [address] Aden Welsh DO [address] [facility] [address] [place], [place] [phone] documented as of this encounter Visit Diagnoses Not on filedocumented in this encounter Care Teams Headend Technician Relationship Specialty Start Date End Date Shaw Jorgensen MD [address] [facility] [place] [address] PCP - General Family Medicine 09/03/22 documented as of this encounter
--- OUTSIDE RECORDS SUMMARY | 2024-10-20 07:16 | XMS_ITS | Encounter Summary ---
Author Organization [facility] Address [address] [place] [address] Care Team Providers Care Cigarette Packing Machine Operator Name Role Phone Shaw Jorgensen MD Primary Care Provider [phone] Encounter Details Date Type Department Care Team (Late st Contact Info) Description 09/24/2023 Abstract [facility] OB [address] [place] [address] Vaishali Villagomez LPN [address] [place], [place] [phone] Social History Tobacco Use Types Packs/Day Years [...] AM EDT Routine [facility] BCP OB [address] [place] [phone] Aden Welsh, [address] [facility] [place] [address] documented as of this encounter Visit Diagnoses Not on filedocumented in this encounter Care Teams Cigarette Packing Machine Operator Relationship Specialty Start Date End Date Shaw Jorgensen MD [address] [place] [facility] [place] [address] PCP - General Family Medicine 09/03/22 documented as of this encounter
--- OUTSIDE RECORDS SUMMARY | 2024-10-20 07:16 | XMS_ITS | Encounter Summary ---
Author Organization [facility] Address [address] [place] [address] Care Team Providers Care Packing Tractor Machine Operator Name Role Phone Shaw Jorgensen MD Primary Care Provider [phone] Encounter Details Date Type Department Care Team (Late st Contact Info) Description 04/15/2023 Clinisync Result Encounter [facility] External Department Unsolicited Rosalva Welsh, [address] [place] [address] Social History Tobacco Use Types Packs/Day Years [...] EDT Routine [facility] BCP OB [address] [place] [address] Rosalva Welsh, DO [address] [facility] [address] [place] [phone] documented as of this encounter Procedures Procedure Name Priority Date/Time Associated Diagnosis Comments US PELVIS W/ TRANSVAGINAL 04/15/2023 3:25 PM EST documented in this encounter Results * US PELVIS W/ TRANSVAGINAL (04/15/2023 3:25 PM EST) Anatomical Region Laterality Modality Other 04/15/2023 3:25 PM EST Narrative 04/15/2023 3:28 PM EST [address] [address] Ultrasound Report Signed Patient: LOYDA GIBSON MR#: [id number] : 2000 Acct:[id number] Age/Sex: 23 / F ADM Date: 04/15/23 Loc: US Attending Dr: Rosalva Welsh D.O. Ordering Physician: Rosalva Welsh D.O. Date of Service: 04/15/23 Procedure(s): US pelvis w/ transvaginal Accession Number(s): [id number] cc: Rosalva Welsh D.O.; Shaw Jorgensen M.D. [address] [id number] Patient Name: LOYDA GIBSON MRN: [id number] date: 2000 Sex: F Assigned Patient Location: US Current Patient Location: US Accession/Order Number: [id number] Exam Date: 04/15/2023 14:09 Report Date: 04/15/2023 [...] Signed By: 04/15/23 1528 DD/ 1525 TD/TT: Enrollment Management Director: Procedure Note Radiology, Radiologist, MD - 04/15/2023 [place] [address] Ultrasound Report Signed Patient: LOYDA GIBSON CMR#: [id number] : 2000Acct:[id number] Age/Sex: FADM Date: 04/15/23 Loc: US Attending Dr: Rosalva Welsh D.O. Ordering Physician: Rosalva Welsh D.O. Date of Service: 04/15/23 Procedure(s): US pelvis w/ transvaginal Accession Number(s): [id number] cc: Rosalva Welsh D.O.; Shaw Jorgensen M.D. The [address] [address] Patient Name: LOYDA GIBSON MRN: [id number] date: 2000 Sex: F Assigned Patient Location: US Current Patient Location: US Accession/Order Number: [id number] Exam Date: 04/15/2023 14:09 Report Date: 04/15/2023 [...] M.D. Signed By:04/15/23 1528 DD/ 1525 TD/TT: Enrollment Management Director: us Rosalva Anitha DO [facility] Final Result documented in this encounter Visit Diagnoses Not on filedocumented in this encounter Care Teams Packing Tractor Machine Operator Relationship Specialty Start Date End Date Shaw Jorgensen MD [address] [place] [address] PCP - General Family Medicine 09/03/22 documented as of this encounter
--- OUTSIDE RECORDS SUMMARY | 2024-10-20 07:16 | XMS_ITS | Encounter Summary ---
Author Organization [facility] Address [address] [place] [address] [place] [address] Care Team Providers Care Toll Ticket Clerk Name Role Phone Shaw Jorgensen MD Primary Care Provider [phone] Encounter Details Date Type Department Care Team (Late st Contact Info) Description 08/16/2024 Abstract [facility] BCP OB [address] [facility] [place] [address] Aden Welsh, DO [address] [facility] [place] [address] Social History Tobacco Use Types Packs/Day Years [...] EDT Routine [facility] BCP OB [address] [facility] [place] [address] Aden Welsh DO [address] [facility] [address] [place], [place] [address] documented as of this encounter Visit Diagnoses Not on filedocumented in this encounter Care Teams Toll Ticket Clerk Relationship Specialty Start Date End Date Shaw Jorgensen MD [address] [facility] [place] [address] PCP - General Family Medicine 09/03/22 documented as of this encounter
[2024-10-20 08:40] LABS: Hematocrit 35.7 % (36.0-48.0); Hemoglobin 12.2 g/dL (12.0-16.0); Immature Granulocytes Abs Auto 0.04 10^3/uL (0.00-0.03); Immature Granulocytes Pct Auto 0.4 % (0.0-0.5); Lymphocytes Absolute Auto 2.0 10^3/uL (1.2-3.8); Mean Corpuscular HGB Conc 34.2 g/dL (29.9-35.2); Mean Corpuscular Hemoglobin 31.5 pg (26.7-34.0); Mean Corpuscular Volume 92.2 fL (81.0-99.0); Platelet Count 276 10^3/uL (150-450); Red Blood Count 3.87 10^6/uL (4.20-5.40); White Blood Count 10.0 10^3/uL (4.0-11.0)
[2024-10-20 09:05] LABS: Glucose 1 Hour 119 mg/dL (<130)
== END 2024-10-20 07:14 | disposition home or self-care (01) ==
LOC: LAB 07:14
PROVIDERS: PCP Family Medicine; Visit Provider Physician Assistant
DX: Z13.1 Encounter for screening for diabetes mellitus (principal)
CPT/HCPCS: 36415; 82950; 85025

== ENCOUNTER 2024-12-13 19:47 | Outpatient (REF) | payer OTHER, SELFPAY ==
--- OUTSIDE RECORDS SUMMARY | 2024-12-01 10:40 | XMS_ITS | Encounter Summary ---
Author Organization [facility] Address [address] [place] [address] Care Team Providers Care Acute Dialysis Nurse Name Role Phone Shaw Jorgensen MD Primary Care Provider [phone] Reason for Visit * Reason Comments Routine Visit Encounter Details Date Type Department Care Team ([facility] Contact Info) Description 12/01/2024 10:40 AM EDT Routine [facility] [place] OBG[facility]er[facility] [address] [facility] [place] [address] Khloe Garcia, ALBINO [address] [facility] [address] [place] [address] Third trimester ([facility]); 34 weeks gestation of ([facility]) Social History Tobacco Use Types Packs/Day Years [...] AM EDT documented as of this encounter Last Filed Vital Signs Vital Sign Reading Time Taken Comments Blood Pressure 114/68 12/01/2024 11:04 AM EDT Pulse - - Temperature - - Respiratory Rate - - Oxygen Saturation - - Inhaled Oxygen Concentration - - Weight 78.5 kg (173 lb) 12/01/2024 11:04 AM EDT Height - - Body Mass Index 28.79 08/03/2023 10:00 AM EDT documented in this encounter Progress Notes * Hattie Houser LPN - 12/01/2024 10:40 AM EDT Reason for Appointment: Patient ID: Loyda Gibson is a 24 y.o. female who presents [...] disorder DUB (dysfunctional uterine bleeding) Dysmenorrhea Endometriosis H/O one miscarriage Menorrhagia Menstrual irregularity Nonsmoker Protein S deficiency ([facility]) HISTORY PAST MEDICAL HISTORY SOCIAL HISTORY Past Medical History: Diagnosis Date Abnormal uterine bleeding (AUB) Anxiety and depression Anxiety disorder DUB (dysfunctional uterine bleeding) Dysmenorrhea Endometriosis H/O one miscarriage Menorrhagia Menstrual irregularity Nonsmoker Pelvic pain in [...] negaitve TONSILLECTOMY 03/27/2010 WISDOM TOOTH EXTRACTION 01/26/2016 [place] teeth REVIEW OF SYSTEMS Review of Systems: Review of Systems Constitutional: Negative. HENT: Negative. Eyes: Negative. Respiratory: Negative. Cardiovascular: Negative. Gastrointestinal: Negative. Genitourinary: Negative. Musculoskeletal: Negative. Skin: Negative. Neurological: Negative. All other systems reviewed and are negative. Hematological: Negative. Endocrine: Negative. Allergic/Immunologic: Negative. OBJECTIVE Objective: OBGyn Exam Vitals: Estimated body mass index is 28.79 kg/m?? as calculated from the following: Height as of 08/03/23: 5' 5 . Weight as of this encounter: 173 lb. BP: 114/68 No LMP recorded (lmp unknown). Patient is . ASSESSMENT & PLAN ICD-10-CM 1. Third trimester ([facility]) Z34.93 2. 34 weeks gestation of ([facility]) Z3A.34 Patient presents today for a routine obstetrics appointment. Patient is currently 34w2d with a Estimated Date of Delivery: 01/10/25. Patient has no concerns at this time and will return to clinic in 2 weeks for GBS and routine OB appointment. Documented by Hattie Houser LPN on behalf of: Dr. Aden Welsh DO documented in this encounter Plan of Treatment Upcoming Encounters Date Type Department Care Team (Late st Contact Info) Description 12/21/2024 11:10 AM EDT Routine [facility] Roslyn VILLANUEVAGYN [address] [place] [address] Aden Welsh DO [address] [facility] [place] [address] documented as of this encounter Goals Goal Patient Goal Type Associated Problems Recent Progress Patient-Stated? Author Reminders Care Plan OB Reminders No Open Scheduling, Background documented as of this encounter Visit Diagnoses Diagnosis Third trimester ([facility]) state, incidental 34 weeks gestation of ([facility]) documented in this encounter Additional Health Concerns Active Problems Noted Date Diagnosed Date OB Reminders 09/20/2024 documented as of this encounter Care Teams Acute Dialysis Nurse Relationship Specialty Start Date End Date Shaw Jorgensen MD [address] [place] [address] PCP - General Family Medicine 09/03/22 documented as of this encounter
--- OUTSIDE RECORDS SUMMARY | 2024-12-13 10:00 | XMS_ITS | Encounter Summary ---
Author Organization [facility] Address [address] [place] [address] Care Team Providers Care Doctor Of Osteopathy Name Role Phone Shaw Jorgensen MD Primary Care Provider [phone] Reason for Visit * Reason Comments Routine Visit Encounter Details Date Type Department Care Team ([facility] Contact Info) Description 12/13/2024 10:00 AM EDT Routine [facility] [address] [place] [phone] Aden Welsh DO [address] [place] [phone] 36 weeks gestation of ([facility]); Third trimester ([facility]) Social History Tobacco Use Types Packs/Day Years [...] EDT Reason for Appointment: Patient ID: Loyda Gisbon is a 24 y.o. female who presents [...] negaitve TONSILLECTOMY 03/27/2010 WISDOM TOOTH EXTRACTION 01/26/2016 [place] teeth REVIEW OF SYSTEMS Review of Systems: [...] nursing note reviewed. Exam conducted with a brush hand present. Vitals: Estimated body mass index is 29.31 kg/m?? as calculated from the following: Height as of 08/03/23: 5' 5 . Weight as of this encounter: 176 lb 1.9 oz. BP: 120/80 No LMP recorded (lmp unknown). Patient is . ASSESSMENT & PLAN ICD-10-CM 1. 36 weeks gestation of ([facility]) Z3A.36 POCT urinalysis dipstick manually resulted 2. Third trimester ([facility]) Z34.93 POCT urinalysis dipstick manually resulted CULTURE, [...] Description 12/21/2024 11:10 AM EDT Routine [facility] [address] [place] [phone] Aden Welsh DO [address] [place] [address] Scheduled Orders Name Type Priority Associated Diagnoses Orde r Schedule CULTURE, GROUP B STREP WITH SUSCEPTIBLITY Lab Routine Third trimester ([facility]) Expected: 12/13/2024, Expires: 12/13/2025 documented as of this encounter Goals Goal Patient Goal Type Associated Problems Recent Progress Patient-Stated? Author Reminders Care Plan OB Reminders No Open Scheduling, Background documented as of this encounter Procedures Procedure Name Priority Date/Time Associated Diagnosis Comments POCT URINALYSIS DIPSTICK Routine 12/13/2024 11:00 AM EDT 36 weeks gestation of ([facility]) Third trimester ([facility]) documented in this encounter Results * (ABNORMAL) POCT urinalysis dipstick manually resulted (12/13/2024 11:00 AM EDT) Color, UA Straw Clarity, UA Clear Glucose, UA Negative Negative - 1999(110) ++++ mg/dL Bilirubin, UA Negative Negative - [...] Visit Diagnoses Diagnosis 36 weeks gestation of ([facility]) Third trimester ([facility]) state, incidental documented in this encounter Additional Health Concerns Active Problems Noted Date Diagnosed Date OB Reminders 09/20/2024 documented as of this encounter Care Teams Doctor Of Osteopathy Relationship Specialty Start Date End Date Shaw Jorgensen MD [address] [place] [address] PCP - General Family Medicine 09/03/22 documented as of this encounter
--- OUTSIDE RECORDS SUMMARY | 2024-12-13 19:50 | XMS_ITS | Encounter Summary ---
Author Organization [facility] Address [address] [address] Care Team Providers Care Tile Layer Drainage Name Role Phone Shaw Jorgensen MD Primary Care Provider [phone] Encounter Details Date Type Department Care Team (Late st Contact Info) Description 12/01/2024 Bamboo flowsheet [facility] [address] [place] [address] Khloe Garcia, ALBINO [address] [place] [address] Social History Tobacco Use Types Packs/Day Years [...] Upcoming Encounters Date Type Department Care Team ([facility] st Contact Info) Description 12/21/2024 11:10 AM EDT Routine [facility] [place] [facility]BG[facility] [address] [place] [phone] Aden Welsh DO [address] [place] [address] documented as of this encounter Goals Goal Patient Goal Type Associated Problems Recent Progress Patient-Stated? Author Reminders Care Plan OB Reminders No Open Scheduling, Background documented as of this encounter Visit Diagnoses Not on filedocumented in this encounter Additional Health Concerns Active Problems Noted Date Diagnosed Date OB Reminders 09/20/2024 documented as of this encounter Care Teams Tile Layer Drainage Relationship Specialty Start Date End Date Shaw Jorgensen MD [address] [place] [phone] PCP - General Family Medicine 09/03/22 documented as of this encounter
--- OUTSIDE RECORDS SUMMARY | 2024-12-13 19:50 | XMS_ITS | Encounter Summary ---
Author Organization [facility] Address [address] [place] [address] Care Team Providers Care Accounting Systems Analyst Name Role Phone Shaw Jorgensen MD Primary Care Provider [phone] Encounter Details Date Type Department Care Team (Late st Contact Info) Description 09/24/2023 Abstract ANA LUISA [facility] [address] [facility] [address] [address] [place] [address] Vaishali Villagomez LPN [address] [place] [address] Social History Tobacco Use Types Packs/Day Years [...] Info) Description 12/21/2024 11:10 AM EDT Routine [facility] OBGYN [address] [place] [phone] Aden Welsh DO [address] [place] [address] documented as of this encounter Visit Diagnoses Not on filedocumented in this encounter Care Teams Accounting Systems Analyst Relationship Specialty Start Date End Date Shaw Jorgensen MD [address] [facility] [place] [address] PCP - General Family Medicine 09/03/22 documented as of this encounter
--- OUTSIDE RECORDS SUMMARY | 2024-12-13 19:50 | XMS_ITS | Encounter Summary ---
Author Organization [facility] Address [address] [place] [address] Care Team Providers Care Sample Room Supervisor Name Role Phone Shaw Jorgensen MD Primary Care Provider [phone] Encounter Details Date Type Department Care Team (Late st Contact Info) Description 08/30/2024 Abstract [facility] [place] OBBETZY [address] [place] [address] Aden Welsh DO [address] [place] [address] Social History Tobacco Use Types Packs/Day Years [...] AM EDT Routine [facility] [place] [facility] [address] [place] [phone] Aden Welsh DO [address] [place] [address] documented as of this encounter Visit Diagnoses Not on filedocumented in this encounter Care Teams Sample Room Supervisor Relationship Specialty Start Date End Date Shaw Jorgensen MD [address] [facility] [place] [address] PCP - General Family Medicine 09/03/22 documented as of this encounter
--- OUTSIDE RECORDS SUMMARY | 2024-12-13 19:50 | XMS_ITS | Encounter Summary ---
Author Organization [facility] Address [address] [place] [address] Care Team Providers Care Placement Assistant Name Role Phone Shaw Jorgensen MD Primary Care Provider [phone] Encounter Details Date Type Department Care Team (Late st Contact Info) Description 08/05/2023 Clinisync Result Encounter NOM[facility] External Department Unsolicited Tran Perez PA [address] [place] [address] Social History Tobacco Use Types Packs/Day Years [...] 12/21/2024 11:10 AM EDT Routine [facility] [place] [facility]BG[facility]erino [address] [place] [address] Aden Welsh, DO [address] [place] [address] documented as of this encounter Procedures Procedure Name Priority Date/Time Associated Diagnosis Comments US PELVIS W/ TRANSVAGINAL 08/05/2023 9:14 AM EDT documented in this encounter Results * US PELVIS W/ TRANSVAGINAL (08/05/2023 9:14 AM EDT) Anatomical Region Laterality Modality Other 08/05/2023 9:14 AM EDT Narrative 08/05/2023 9:16 AM EDT [address] [address] Ultrasound Report Signed Patient: LOYDA GIBSON MR#: [id number] : 2000 Acct:[id number] Age/Sex: 23 / F ADM Date: 08/05/23 Loc: US Attending Dr: Tran Perez Ordering Physician: Tran Perez Date of Service: 08/05/23 Procedure(s): US pelvis w/ transvaginal Accession Number(s): [id number] cc: Tran Perez; Shaw Jorgensen M.D. [address] [address] Patient Name: LOYDA GIBSON MRN: [id number] date: 2000 Sex: F Assigned Patient Location: US Current Patient Location: US Accession/Order Number: [id number] Exam Date: 08/05/2023 08:20 Report Date: 08/05/2023 [...] M.D. Signed By: 08/05/23915 DD/ 3 TD/TT: Silk Conditioner: Procedure Note Radiology, Radiologist, MD - 08/05/2023 [facility] [place] [id number] Ultrasound Report Signed Patient: LOYDA GIBSON CMR#: [id number] : 2000Acct:[id number] Age/Sex: 23 / FADM Date: 08/05/23 Loc: US Attending Dr: Tran Perez Ordering Physician: Tran Perez Date of Service: 08/05/23 Procedure(s): US pelvis w/ transvaginal Accession Number(s): [id number] cc: Tran Perez; Shaw Jorgensen M.D. The [address] [address] Patient Name: LOYDA GIBSON MRN: [id number] date: 2000 Sex: F Assigned Patient Location: US Current Patient Location: US Accession/Order Number: [id number] Exam Date: 08/05/2023 08:20 Report Date: 08/05/2023 [...] Foreman M.D. Signed By:08/05/23915 DD/ 3 TD/TT: Silk Conditioner: us [facility] Final Result documented in this encounter Visit Diagnoses Not on filedocumented in this encounter Care Teams Placement Assistant Relationship Specialty Start Date End Date Shaw Jorgensen MD [address] [place] [address] PCP - General Family Medicine 09/03/22 documented as of this encounter
--- OUTSIDE RECORDS SUMMARY | 2024-12-13 19:50 | XMS_ITS | Encounter Summary ---
Author Organization [facility] Address [address] [place] [address] [place] [address] Care Team Providers Care Drip Pumper Name Role Phone Shaw Jorgensen MD Primary Care Provider [phone] Encounter Details Date Type Department Care Team (Late st Contact Info) Description 08/30/2024 Abstract [facility] [place] [facility] [address] [place] [address] Aden Welsh DO [address] [place] [address] Social History Tobacco Use Types Packs/Day Years [...] AM EDT Routine [facility] [place] [facility] [address] [place] [place] [address] Aden Welsh DO [address] [place] [address] documented as of this encounter Visit Diagnoses Not on filedocumented in this encounter Care Teams Drip Pumper Relationship Specialty Start Date End Date Shaw Jorgensen MD [address] [facility] [place] [address] PCP - General Family Medicine 09/03/22 documented as of this encounter
--- OUTSIDE RECORDS SUMMARY | 2024-12-13 19:50 | XMS_ITS | Clinical Summary ---
Author Organization [employer] [facility] Address [id number] [place] [address] Care Team Providers Care Fashion Patternmaker Name Role Phone Unavailable Primary Care Provider [...]
--- OUTSIDE RECORDS SUMMARY | 2024-12-13 19:50 | XMS_ITS | Encounter Summary ---
Author Organization [facility] Address [address] [place] [address] Care Team Providers Care Mandrel Press Hand Name Role Phone Shaw Jorgensen MD Primary Care Provider [phone] Encounter Details Date Type Department Care Team (Late st Contact Info) Description 10/23/2022 Abstract [facility] [place] [facility] [address] [address] Tran Gomez PA [address] [place] [address] Social History Tobacco Use Types Packs/Day Years [...] AM EDT Routine [facility] [place] [facility] [address] [phone] Aden Welsh DO [address] [place], [place] [phone] documented as of this encounter Visit Diagnoses Not on filedocumented in this encounter Care Teams Mandrel Press Hand Relationship Specialty Start Date End Date Shaw Jorgensen MD [address] [facility] [place] [address] PCP - General Family Medicine 09/03/22 documented as of this encounter
--- OUTSIDE RECORDS SUMMARY | 2024-12-13 19:50 | XMS_ITS | Patient Health Record ---
Author Organization [facility] [place] Address [address] [place] [address] Care Team Providers Care Consulting Nurse Name Role Phone Usman Jorgensen Primary Care Provider Jeanine Pablo [phone] Allergies No Known Allergies Results Component Value Reference Range Notes COVID-19, Flu A+B IH Reviewed date:08/05/2024 01:06:37 PM Interpretation: Performing Lab: Notes/Report: COVID - FLU A - FLU B - Control + US right upper quadrant Reviewed date:03/30/2024 03:20:05 PM Interpretation: Performing Lab: Notes/Report: Source Facility: [place] [address] Ultrasound Report Signed Patient: LOYDA ADAME MR#: [id number] : 2000 Acct:[id number] Age/Sex: 24 / F ADM Date: 03/29/24 Loc: US Attending Dr: Bharti Jorgensen M.D. Ordering Physician: Bharti Jorgensen M.D. Date of Service: 03/29/24 Procedure(s): US right upper quadrant Accession Number(s): [id number] cc: Bharti Jorgensen M.D. [place] [address] Patient Name: LOYDA ADAME MRN: [id number] date: 2000 Sex: F Assigned Patient Location: US Current Patient Location: US Accession/Order Number: [id number] Exam Date: 03/29/2024 06:59 Report Date: 03/29/2024 [...] Foreman M.D. Signed By: 03/29/24 0747 DD/ 0745 TD/TT: Manager Appointment: GLYCOHEMOGLOBIN A1C Reviewed date:08/07/2024 06:03:37 PM Interpretation: Performing Lab: Notes/Report: [facility] , Glycohemoglobin A1C 4.7 4.5-6.2 % ADA THERAPEUTIC TARGET < 7.0 ACTION SUGGESTED ADA RECOMMENDED LIMIT 4.0 - 6.0 > 7.0 Estimated Average Glucose 88 Performing Lab: see note ML - [facility] LB Type and Screen Reviewed date:08/07/2024 06:03:37 PM Interpretation: Performing Lab: Notes/Report: [facility] , Blood Type A Positive Antibody Screen NEGATIVE HIV Ab/p24 Ag with Reflex Reviewed date:08/07/2024 06:03:37 PM Interpretation: Performing Lab: Notes/Report: [facility] , HIV Ab/p24 Ag Screen Non Reactive Non Reactive HIV Negative [address] [place], [place] [id number] General Education Professor: Fer Turpin PhD, Phone: [phone] HIV-1/HIV-2 antibodies and HIV-1 p24 antigen were NOT detected. There is no laboratory evidence of HIV infection. Performed at: [facility] Performing Lab: see note [facility] Rapid Plasma Reagin, Quant Reviewed date:08/07/2024 06:03:37 PM Interpretation: Performing Lab: Notes/Report: [facility] , Rapid Plasma Reagin, Quant Non Reactive NonRea<1:[address] [place] [phone] screening and diagnosis of syphilis. This test is Performed at: [facility] RPR and Confirmatory Treponema pallidum Antibodies infection, a reflex cascade that includes both RPR and a Treponema pallidum (Syphilis) Screening [place] (419477) or Rapid Plasma Reagin (RPR) Test With Reflex to Quantitative (405458). intended for following treatment response in patients being treated for syphilis infection. To screen for syphilis treponema-specific assay should be utilized, such as Please Note: This test does not meet current guidelines for General Education Professor: Fer Turpin PhD, Phone: [phone] Performing Lab: see note [facility] HBsAg Screen Reviewed date:08/07/2024 06:03:37 PM Interpretation: Performing Lab: Notes/Report: [facility] , HBsAg Screen Negative Negative General Education Professor: Fer Turpin PhD, Phone: [phone] Performed at: [facility] [address] [place] [phone] Performing Lab: see note [facility] Box Test Reviewed date:08/07/2024 06:03:37 PM Interpretation: Performing Lab: Notes/Report: [facility] , BOX Test Sent Out UNITY BOX Test Reference Lab UNITY BOX Test Date Sent 08/05/24 Performing Lab: see note [facility] US OB incomplete anatomy Reviewed date:09/26/2024 09:11:43 PM Interpretation: Performing Lab: Notes/Report: Source Facility: [facility] [place] [address] [place] [address] Ultrasound Report Signed Patient: LOYDA ADAME MR#: [id number] : 2000 Acct:[id number] Age/Sex: 24 / F ADM Date: 09/26/24 Loc: US Attending Dr: Rosalva Welsh D.O. Ordering Physician: Rosalva Welsh D.O. Date of Service: 09/26/24 Procedure(s): US OB incomplete anatomy Accession Number(s): [id number] cc: Rosalva Welsh D.O.; Bharti Jorgensen M.D. [place] [address] Patient Name: LOYDA ADAME MRN: [facility]:[id number] date: 2000 Sex: F Assigned Patient Location: US Current Patient Location: US Accession/Order Number: [id number] Exam Date: 09/26/2024 10:11 Report Date: 09/26/2024 [...] left ventricular outflow tracts were successfully visualized. US/ OB incomplete anatomy IMPRESSION: VISUALIZATION OF THE VENTRICULAR OUTFLOW TRACTS. Impression dictated by: Gina Boyd M.D. 09/26/2024 10:13 AM Dictation Location: [place] [address] Electronically authenticated by: [id number] Y Date: 09/26/2024 10:13 Dictated By: Gina Boyd M.D. Signed By: 09/26/24 1016 DD/ 1013 TD/TT: Manager Appointment: Eleazar SCHROEDER,Age Gdln Reviewed date:10/03/2024 08:08:31 PM Interpretation: Performing Lab: Notes/Report: SPATULA-ALONE VAGINA [facility] , Age Gdln ACOG Testing Note . 01 =G [facility] José Source.............Vagina L-Low Normal,H-High Normal,LL-Alert Low,HH-Alert High Leia Carbajal MD, Performed at: TESTS RESULT FLAG UNITS REF RANGE LAB Age Lenny MCNEAL Lorena... 21-29 01 FLAG LEGEND: [address] [place] [address] Clinician Provided Cytology Information <-Panic Low,>-Panic High,A-Abnormal,AA-Critic al Abnormal No. of containers..01 ThinPrep Vial IGP, rfx Aptima HPV ASCU Note . Satisfactory for evaluation. Carter Hall MD, The HPV DNA reflex criteria were not met with this specimen The Pap smear is a screening test designed to aid in the L-Low Normal,H-High Normal,LL-Alert Low,HH-Alert High Note: Note 03 [facility] [place] [address] 03 [facility] Performed by: 02 General Education Professor: Leia Carbajal MD, Phone: [phone] occur. Alicia Hanson, [employer] Machine Operator ([facility]) detection of premalignant and malignant conditions of the uterine cervix. It is not a diagnostic procedure and Performed at: =G - [facility] . [address] [place] [address] [place] [phone] General Education Professor: Carter Hall MD, Phone: [phone] Test Methodology: Note 03 [address] [place] [phone] TESTS RESULT FLAG UNITS REF RANGE LAB cancer. Both false-positive and false-negative reports do result therefore, no HPV testing was performed. <-Panic Low,>-Panic High,A-Abnormal,AA-Critic al Abnormal This liquid based ThinPrep(R) pap test was screened with FLAG LEGEND: Leia Carbajal MD, the use of an image guided system. Performed at: Performed at: [facility] Cyto Histo Specimen adequacy: 02 NEGATIVE FOR INTRAEPITHELIAL LESION OR MALIGNANCY. . 02 02 [facility] Cyto Histo DIAGNOSIS: 02 should not be used as the sole means of detecting cervical Performing Lab: see note [facility] LB CBC AUTO DIFF Reviewed date:10/20/2024 09:08:07 AM Interpretation: Performing Lab: Notes/Report: The [facility] , White Blood Count 10.0 4.0-11.0 10 3/uL Red Blood Count 3.87 4.20-5.40 10 6/uL Hemoglobin 12.2 12.0-16.0 g/dL Hematocrit 35.7 36.0-48.0 % Mean Corpuscular Volume 92.2 81.0-99.0 fL Mean Corpuscular Hemoglobin 31.5 26.7-34.0 pg Mean Corpuscular HGB Conc 34.2 29.9-35.2 g/dL Red Cell Distribution Width 12.3 11.0-15.0 % Platelet Count 276 150-450 10 3/uL Mean Platelet Volume 9.8 9.5-13.5 fL Neutrophils Percent Auto 71.1 43.0-75.0 % Lymphocytes Percent Auto 19.8 20.5-60.0 % Monocytes Percent Auto 6.4 1.7-12.0 % Eosinophils Percent Auto 1.9 0.9-7.0 % Basophils Percent Auto 0.4 0.2-2.0 % Immature Granulocytes Pct Auto 0.4 0.0-0.5 % Neutrophils Absolute Auto 7.1 1.4-6.5 10 3/uL Lymphocytes Absolute Auto 2.0 1.2-3.8 10 3/uL Monocytes Absolute Auto 0.6 0.3-0.8 10 3/uL Eosinophils Absolute Auto 0.2 0.0-0.7 10 3/uL Basophils Absolute Auto 0.0 0.0-0.1 10 3/uL Immature Granulocytes Abs Auto 0.04 0.00-0.03 10 3/uL Performing Lab: see note - [facility] LB Glucose 1 Hour Reviewed date:10/20/2024 10:11:43 AM Interpretation: Performing Lab: Notes/Report: The [facility] , Glucose 1 Hour 119 <130 mg/dL Performing Lab: see note - [facility] HCV Antibody RFX to Quant PC R Reviewed date:08/07/2024 06:03:37 PM Interpretation: Performing Lab: Notes/Report: [facility] , HCV Ab Non Reactive Non Reactive Interpretation: Comment . infection. Performed at: [facility] Not infected with HCV unless early or acute infection is [address] [place] [phone] General Education Professor: Fer Turpin PhD, Phone: [phone] individual), or other evidence exists to indicate HCV suspected (which may be delayed in an immunocompromised Performing Lab: see note [facility] LB AFP, Serum, Open Spina Bifid a Reviewed date:08/08/2024 08:42:34 PM Interpretation: Performing Lab: Notes/Report: N N ULTRASOUND [id number] 3 17 N 1 Y 156 N N N N N White/ [facility] , Results Report . Test Results: *Screen [...] Negative Services to discuss available options. The Colombian This result is screen negative for OSB. The AFP MoM Comment: Comment . IDD 2.0 Twins 4.5 Director This test was developed and its performance characteristics Multiples Of Median Cutoffs Performed at: [facility] AFP Elevations [address] [place], [place] [id number] Abbreviation Definitions For further inquiries contact [facility] IDD - Insulin Dep Diabetes determined by [facility]. It has not been cleared or approved References: Available Upon Request. by the Food and Drug Administration. [facility] - Open Spina Bifida Risk Genetics Services at 5-877-197-GENE. Marin 2.5 Black 2.8 Radha Bautista, Ph.D., [facility] General Education Professor: Amado Tinoco [facility], Phone: [phone] Performing Lab: see note [facility] LB RUBELLA AB IGG Reviewed date:08/07/2024 06:03:37 PM Interpretation: Performing Lab: Notes/Report: [facility] , Rubella Antibodies, IgG 2.66 Immune > 0.99 index Non-immune <0.90 General Education Professor: Fer Turpin PhD, Phone: [phone] Immune >0.99 Equivocal 0.90 - 0.99 [address] [place], [place] [phone] Performed at: [facility] Performing Lab: see note [facility] LB CBC AUTO DIFF Reviewed date:08/05/2024 01:06:37 PM Interpretation: Performing Lab: Notes/Report: The [facility] , White Blood Count 8.1 4.0-11.0 10 [...] Performing Lab: see note ML - The [facility] HCG Qualitative* Reviewed date:05/04/2024 07:51:54 AM Interpretation: Performing Lab: Notes/Report: The [facility] Qualitative POSITIVE NEGATIVE Performing Lab: see note ML - The [facility] LB PREG QUANT HCG Reviewed date:05/04/2024 12:27:10 PM Interpretation: Performing Lab: Notes/Report: [facility] Quantitative 205 50-500 1-2 WEEKS 100-5,000 2-3 WEEKS 1,000-50,000 4-5 WEEKS 5-50 0.2-1 WEEK 10,000-100,000 5-6 WEEKS 10,000-100,000 2-3 MONTHS 15,000-200,000 6-8 WEEKS 500-10,000 3-4 WEEKS Performing Lab: see note - [facility] LB PROF CHEM 8 (BAS METB) Reviewed date:04/21/2024 05:35:33 PM Interpretation: Performing Lab: Notes/Report: The [facility] , Sodium 138 136-145 mmol/L Potassium 3.8 [...] mg/dL Performing Lab: see note ML - [facility] LB LIVER PROFILE Reviewed date:04/21/2024 05:35:33 PM Interpretation: Performing Lab: Notes/Report: The [facility] , Bilirubin Total 0.4 0.2-1.0 mg/dL Bilirubin Direct 0.1 0.0-0.2 mg/dL Aspartate Amino Transferase 10 15-37 U/L Alanine Aminotransferase 14 14-59 U/L Alkaline Phosphatase 69 46-116 U/L Total Protein 6.9 6.4-8.2 g/dL Albumin Level 3.3 3.4-5.0 g/dL Globulin 3.6 Albumin Globulin Ratio 0.9 Performing Lab: see note ML - [facility] LB CBC AUTO DIFF Reviewed date:04/21/2024 05:35:33 PM Interpretation: Performing Lab: Notes/Report: The [facility] , White Blood Count 6.1 4.0-11.0 10 [...] Performing Lab: see note ML - The [facility] LB CBC AUTO DIFF Reviewed date:01/14/2024 12:59:57 PM Interpretation: Performing Lab: Notes/Report: [facility] , White Blood Count 7.7 4.0-11.0 10 [...] Performing Lab: see note ML - The [facility] PREG QUANT HCG Reviewed date:05/31/2024 03:52:35 PM Interpretation: Performing Lab: Notes/Report: The [facility] , HCG Quantitative [address] 15,000-200,000 6-8 WEEKS 10,000-100,000 5-6 WEEKS 5-50 0.2-1 WEEK 10,000-100,000 2-3 MONTHS 50-500 1-2 WEEKS 1,000-50,000 4-5 WEEKS 100-5,000 2-3 WEEKS 500-10,000 3-4 WEEKS Performing Lab: see note ML - [facility] Urine Culture, Routine Reviewed date:08/09/2024 09:15:03 PM Interpretation: Performing Lab: Notes/Report: [facility] , Urine Culture, Routine See Below For Report Urine Culture, Routine Urine Culture, Routine Culture shows les s than 10,000 colony forming units of bacteria per Urine Culture, Routine Urine Culture, Routine milliliter of urine. This colony count is not generally considered Urine Culture, Routine Urine Culture, Routine to be clinically significant. Urine Culture, Routine Urine Culture, Routine Performed at: [facility] Urine Culture, Routine Urine Culture, Routine [address] [place], [place] [phone] Urine Culture, Routine Urine Culture, Routine General Education Professor: Fer Turpin PhD, Phone: [phone] Urine Culture, Routine Performing Lab: see note - [facility] LB SEE REPORT - [employer] Automatic Id information not found for OBX-specific oil producer legend DRUG SCREEN RAPID (URINE) Reviewed date:08/08/2024 08:42:34 PM Interpretation: Performing Lab: Notes/Report: The [facility] , Cannabinoid Screen Urine NEGATIVE NEGATIVE Phencyclidine [...] Performing Lab: see note ML - The [facility] LB Reason For Referral Diagnosis 1 Calculus of gallblad guillermo without cholecystitis without obstruction (K80.20) Referral Organization [facility] Referring Provider First Name Usman Referring Provider Last Name Jameel Referring Provider [facility] leonardo Referred Provider Israel Dugan Referred Provider Specialty General Surg chris Referral Priority Routine Reason gallstone Diagnosis 1 Right upper quadrant abdominal pain (R10.11) Referral Organization [facility] Referring Provider First Name Usman Referring Provider Last Name Jameel Referring Provider [facility] leonardo Referred Provider Israel Dugan Referred Provider Specialty General Surg chris Referral Priority Routine Medications Medication SIG (Take, Route, Frequency, Duration) Notes Start Date End Date Status QUEtiapine Fumarate 50 MG TAKE 1 TABLETS BY MOUTH EVERY DAY; Duration: 90 days Active rOPINIRole HCl 5 MG TAKE 1 TABLET BY MALISSA TH EVERY DAY AT BEDTIME; Duration: 90 Active Ondansetron 4 MG 1 tablet on the tong ue and allow to dissolve Orally Once a day; Duration: 30 days 12/09/2023 Active Protonix 40 MG 1 tablet Orally Once a day; Duration: 30 days 03/24/2024 Active Hyoscyamine Sulfate 0.125 MG 1-2 tabs SL SL every 4 hrs PRN abd pain 12/09/2023 Active Azelastine HCl 0.05 % 1 drop into affect ed eye Ophthalmic qd 03/31/2024 Active Cetirizine HCl 10 MG TAKE 1 TABLET BY MO UTH EVERY DAY; Duration: 90 Active DULoxetine HCl 60 MG TAKE 2 CAPSULE BY M OUTH EVERY DAY Orally Once a day; Duration: 90 days Active Social History Tobacco Use: [...] Problem Status W/U Status Risk Notes Problem Cholelithiasis without obstruction (43480067) Calculus of gallbladder without cholecystitis without obstruction (K80.20) Active confirmed Problem Orthostatic hypotension (30206705) Orthostatic hypotension (I95.1) Active confirmed Problem Depression (077120606) Depression (F32.9) Active confirmed Problem Attention deficit disorder (42645395) ADD (attention deficit disorder) (F90.0) Active confirmed Problem Insomnia (419896337) Insomnia (G47.00) Active confirmed Problem Alopecia (74030354) Hair loss (L65.9) Active co nfirmed Problem Scoliosis (029841475) Scoliosis (M41.9) Active confirmed Problem Right upper quadrant pain (278076629) Right upper quadrant abdominal pain (R10.11) Active confirmed Problem Overweight (318585665) Over weight (E66.3) Active confirmed Problem Seasonal allergic rhinitis (941468123) Allergic rhinitis, seasonal (J30.2) Active confirmed Problem Menometrorrhagia (970107408) Menometrorrhagia (N92.1) Active confirmed Problem Peripheral vertigo (00232816) Vertigo, peripheral (H81.399) Active confirmed Problem COVID-19 (318388881) COVID-19 (U07.1) Active confirmed Vital Signs Temperature 98.1 degrees Fahrenheit 05/31/2024 Blood pressure diastolic 62 mm Hg 05/31/2024 Height 65 in 05/31/2024 Blood pressure systolic 108 mm Hg 05/31/2024 Weight 161 lbs 05/31/2024 BMI 26.79 kg/m2 05/31/2024 Encounters Encounter Location Date Provider Diagnosis [address] [address] 03/24/2024 Usman Hoy Right upper quadrant abdominal pain R10.[address] [address] 05/31/2024 Jeanine Pablo Cough R05.9 ; URI (upper respiratory infection) J06.[address] [address] 12/21/2023 Usman Hoy Calculus of gallblad guillermo without cholecystitis without obstruction K80.20 [place] [address] [place] [address] 01/05/2024 Usman y [place] [address] [place] [address] 03/30/2024 Usman [facility] [address] [place] [address] 05/04/[address] [address] 05/31/2024 Jeanine Pablo Assessments Encounter Date Diagnosis (ICD Code) Assessment Notes Treatment Notes Treatment Clinical Notes Section Notes 03/24/2024 Right upper quadrant abdominal pain (ICD-10 - R10.11) 05/31/2024 URI (upper respiratory infection) (ICD-10 - J06.9) likely viral supportive care if not improving, worsens fu 05/31/2024 Cough (ICD-10 - R05.9) 12/21/2023 Calculus of gallbladder without cholecystitis without obstruction (ICD-10 - K80.20) 05/31/2024 (ICD-10 - Z33.1) Plan Of Treatment Pending Test Test Name Order Date CMP (COMPLETE METABOLIC PANEL) 3 HEMOGLOBIN A1C (GLYCO) 12/19/2022 IRON, TOTAL 12/19/2022 CBC WITH DIFF 12/19/2022 VITAMIN D, 25 LEVEL (TOTAL) 12/19/2022 Sleep study - Diagnostic Polysonogram Insulin Level 12/19/2022 Covid-19 PCR (CVD[facility]) 11/16/2023 US ABD 12/09/2023 US ABD 03/24/2024 THYROID PANEL (T4/TSH/FREE T3) 3 SARS-CoV-2 BINU 10/08/2023 Insurance Providers Payer Name Payer Address Payer Phone Subscriber Number Group Number Insured Name Patient Relationship to Insured Coverage Start Date Coverage End Date [employer] [place] [employer] [address] [place] [address] [id number] Loyda Adame Self - patient is the insured Medical (General) History Medical History History ICD Code Over weight E66.3 Depression F32.9 Allergic rhinitis, seasonal J30.2 Vertigo, peripheral H81.399 COVID-19 U07.1 Orthostatic hypotension I95.1 Menometrorrhagia N92.1 Insomnia G47.00 Scoliosis M41.9 ADD (attention deficit disorder) F90.0 Surgical History Surgery Date(Month/Year) Laproscopy 09/2021
--- OUTSIDE RECORDS SUMMARY | 2024-12-13 19:50 | XMS_ITS | Encounter Summary ---
Author Organization [facility] Address [address] [place] [address] Care Team Providers Care Diesel Trailer Mechanic Name Role Phone Shaw Jorgensen MD Primary Care Provider [phone] Encounter Details Date Type Department Care Team (Late st Contact Info) Description 08/16/2024 Abstract [facility] [address] [place] [place] [address] Aden Welsh DO [address] [place] [address] Social History Tobacco Use Types Packs/Day Years [...] AM EDT Routine [facility] [address] [place] [address] Aden Welsh DO [address] [place] [address] documented as of this encounter Visit Diagnoses Not on filedocumented in this encounter Care Teams Diesel Trailer Mechanic Relationship Specialty Start Date End Date Shaw Jorgensen MD [address] [facility] [place] [address] PCP - General Family Medicine 09/03/22 documented as of this encounter
--- OUTSIDE RECORDS SUMMARY | 2024-12-13 19:50 | XMS_ITS | Encounter Summary ---
Author Organization [facility] Address [address] [place] [address] Care Team Providers Care Surgical Specialist Name Role Phone Shaw Jorgensen MD Primary Care Provider [phone] Encounter Details Date Type Department Care Team (Latest Contact Info) Description 11/30/2024 Travel Social History Tobacco Use Types Packs/Day [...] Department Care Team ( Contact Info) Description 12/21/2024 11:10 AM EDT Routine [facility] [address] [place] [id number] Aden Welsh, [address] [place] [address] documented as of this encounter Goals Goal Patient Goal Type Associated Problems Recent Progress Patient-Stated? Author Reminders Care Plan OB Reminders No Open Scheduling, Background documented as of this encounter Visit Diagnoses Not on filedocumented in this encounter Additional Health Concerns Active Problems Noted Date Diagnosed Date OB Reminders 09/20/2024 documented as of this encounter Care Teams Surgical Specialist Relationship Specialty Start Date End Date Shaw Jorgensen MD [address] [place] [address] PCP - General Family Medicine 09/03/22 documented as of this encounter
--- OUTSIDE RECORDS SUMMARY | 2024-12-13 19:50 | XMS_ITS | Clinical Summary ---
Author Organization [facility] Address [address] [place] [address] [place] [address] Care Team Providers Care Commercial Litigation Paralegal Name Role Phone Shaw Jorgensen MD Primary Care Provider [phone] Allergies No known active allergies Medications cetirizine (ZyrTEC) 10 MG tablet 1 (one) time each day at the same time. Active DULoxetine (Cymbalta) [address] capsule Take 60 mg by mouth in the morning. Active Vit-Fe Fumarate-FA ( VITAMIN PO) Take by mouth Active Active Problems Problem Noted Date Diagnosed Date Pelvic pain in female 04/10/2023 Estimated Date of Delivery Comme nts Yes 01/10/2025 Based on Ultraso und Encounters Date Type Department Care Team Description 12/13/2024 10:00 AM EDT Routine [facility] [address] [place] [address] Rosalva Welsh DO 36 weeks gestation of ([facility]); Third trimester ([facility]) 12/13/2024 Bamboo flowsheet [facility] [address]O [address] [place] [address] Rosalva Welsh DO 12/08/2024 Travel 12/01/2024 10:40 AM EDT Routine [facility] [place] [address] Khloe Garcia, ALBINO Third trimester ([facility]); 34 weeks gestation of ([facility]) 12/01/2024 Bamboo flowsheet [facility] Jennings [facility] [place] [address] Khloe Garcia, ALBINO 11/30/2024 Travel 11/17/2024 11:00 AM EDT Routine [facility] [place] [address] Rosalva Welsh, 32 weeks gestation of ([facility]); Third trimester ([facility]) 11/17/2024 Bamboo flowsheet [facility] [place] [address] Rosalva Welsh DO 11/15/2024 Travel 11/02/2024 10:00 AM EDT Routine [facility] [place] [address] Tran Gomez PA Third trimester ([facility]); 30 weeks gestation of ([facility]) 11/02/2024 9:30 AM EDT Ancillary Procedure [facility] [place] [address] Third trimester ([facility]); Size of fetus inconsistent with dates, antepartum ([facility]) 10/31/2024 Travel 10/21/2024 Telephone [facility] [place] [address] Lourdes Caballero MA 10/20/2024 10:50 AM [place] [address] oRsalva Welsh DO 28 weeks gestation of ([facility]); Third trimester ([facility]); Chlamydia trachomatis infection; Size of fetus inconsistent with dates, antepartum ([facility]) 10/20/2024 Clinisync Result Encounter [facility] External Department Unsolicited Tran Gomez PA 10/13/2024 Travel 10/05/2024 Orders Only [facility] OBGYN [address] [place] [address] Shereenleandro MarianaZULEIKA 09/28/2024 Telephone [facility] JAMESN [address] [place] [address] [place] [phone] Tran Gomez PA 09/27/2024 10:30 AM EDT Routine [facility] [place] [address] Tran Gomez PA Second trimester ([facility]); 25 weeks gestation of ([facility]); STD exposure; Well woman exam with routine gynecological exam; Diabetes mellitus screening 09/27/2024 Clinisync Result Encounter NOMS External Department Unsolicited Tran Gomez PA 09/27/2024 External Result Encounter NOMS External Department Unsolicited Tran Gomez PA 09/26/2024 Clinisync Result Encounter NOMS External Department Unsolicited Rosalva Welsh DO 09/20/2024 Travel from Last 3 Months Family History [...] 1.9 oz) 12/13/2024 10:51 AM EDT Height 165.1 cm (5' 5 ) 08/03/2023 10:00 AM EDT Body Mass Index 29.31 08/03/2023 10:00 AM EDT Plan of Treatment Upcoming Encounters Date Type Department Care Team (Late st Contact Info) Description 12/21/2024 11:10 AM EDT Routine [facility] OBGYN [address] [place] [address] Rosalva Welsh, [address] [place], [place] [phone] Health Maintenance Due Date Last Done Comments Influenza Vaccine (#1) 2024 2, 01/20/2019, 2018, Additional history exists Goals Goal Patient Goal Type Associated Problems Recent Progress Patient-Stated? Author Reminders Care Plan OB Reminders No Open Scheduling, Background Procedures Procedure Name Priority Date/Time Associated Diagnosis Comments POCT URINALYSIS DIPSTICK Routine 12/13/2024 11:00 AM EDT 36 weeks gestation of ([facility]) Third trimester ([facility]) URINARY TRACT INFECTION (HTRX) Routine 11/17/2024 12:52 PM EDT POCT URINALYSIS DIPSTICK Routine 11/17/2024 11:35 AM EDT 32 weeks gestation of ([facility]) Third trimester ([facility]) POCT URINALYSIS DIPSTICK Routine 11/02/2024 10:22 AM EDT Third trimester ([facility]) US OB FOLLOW UP TRANSABDOMINAL APPROACH Routine 11/02/2024 10:01 AM EDT Third trimester ([facility]) Size of fetus inconsistent with dates, antepartum ([facility]) RECURRENT VAGINITIS (HTRX) Routine 10/20/2024 12:04 PM EDT GLUCOSE 1 HOUR Routine 10/20/2024 8:20 AM EDT ALL CBC WITH AUTO DIFF Routine 8:20 AM EDT RECURRENT VAGINITIS (HTRX) Routine 09/27/2024 12:14 PM EDT POCT URINALYSIS DIPSTICK Routine 09/27/2024 11:03 AM EDT Second trimester ([facility]) IGP,APTIMA HPV,AGE GDLN Routine 09/27/2024 10:45 AM EDT PAP SMEAR Routine 09/27/2024 12:00 AM EDT US OB INCOMPLETE ANATOMY 09/26/2024 10:13 AM EDT from Last 3 Months Results * (ABNORMAL) POCT urinalysis dipstick manually resulted (12/13/2024 11:00 AM EDT) Only the most recent of4 resultswithin the time period is included. Color, UA Straw Clarity, UA Clear Glucose, UA Negative Negative - 1999(110) ++++ mg/dL Bilirubin, UA Negative Negative - 4(70) +++ mg/dL Ketones, UA Negative Negative - 160(16) ++++ mg/dL Spec Grav, UA 1.010 1 - 1.03 Blood, UA Positive Negative - 50 Ralf/mcL pH, UA 7.0 5 - 9 Protein, UA Negative Negative - 1999(20) ++++ mg/dL Urobilinogen, UA 1.0 0.2 - 12 mg/dL Leukocytes, UA Positive Negative - 500+++ Joce/mcL Nitrite, UA Negative Negative - Positive Urine 12/13/2024 11:0 0 AM EDT Rosalva Welsh DO POINT OF CARE TEST ENTER/EDIT OR DERABLES Final Result * URINARY TRACT INFECTION (HTRX) (11/17/2024 12:52 PM EDT) [facility] [address] ACINETOBACTER BAUMANII 0 19.961 - 24.689 ppm 11/18/2024 6:58 AM EDT [facility] ACINETOBACTER BAUMANII Not Detected 19.961 - 24.689 ppm 11/18/2024 6:58 AM EDT [facility] CITROBACTER FREUNDII 0 23.000 - 32.015 ppm 11/18/2024 6:58 AM EDT [facility] CITROBACTER FREUNDII Not Detected 23.000 - 32.015 ppm 11/18/2024 6:58 AM EDT [facility] ENTEROBACTER AEROGENES, CLOACAE 0 23.000 - 32.290 ppm 11/18/2024 6:58 AM EDT [facility] ENTEROBACTER AEROGENES, CLOACAE Not Detected 23.000 - 32.290 ppm 11/18/2024 6:58 AM EDT [facility] ENTEROCOCCUS FAECALIS, FAECIUM 0 26.000 - 33.043 ppm 11/18/2024 6:58 AM EDT [facility] ENTEROCOCCUS FAECALIS, FAECIUM Not Detected 26.000 - 33.043 ppm 11/18/2024 6:58 AM EDT [facility] ESCHERICHIA COLI 0 23.000 - 28.500 ppm 11/18/2024 6:58 AM EDT [facility] ESCHERICHIA COLI Not Detected 23.000 - 28.500 ppm 11/18/2024 6:58 AM EDT [facility] KLEBSIELLA PNEUMONIAE, OXYTOCA 0 23.000 - 31.865 ppm 11/18/2024 6:58 AM EDT [facility] KLEBSIELLA PNEUMONIAE, OXYTOCA Not Detected 23.000 - 31.865 ppm 11/18/2024 6:58 AM EDT [facility] MORGANELLA MORGANII 0 19.961 - 24.689 ppm 11/18/2024 6:58 AM EDT [facility] MORGANELLA MORGANII Not Detected 19.961 - 24.689 ppm 11/18/2024 6:58 AM EDT [facility] PROTEUS MIRABILIS, VULGARIS 0 23.000 - 28.500 ppm 11/18/2024 6:58 AM EDT [facility] PROTEUS MIRABILIS, VULGARIS Not Detected 23.000 - 28.500 ppm 11/18/2024 6:58 AM EDT [facility] PSEUDOMONAS AERUGINOSA 0 23.000 - 31.801 ppm 11/18/2024 6:58 AM EDT [facility] PSEUDOMONAS AERUGINOSA Not Detected 23.000 - 31.801 ppm 11/18/2024 6:58 AM EDT [facility] STAPHYLOCOCCUS AUREUS 0 26.000 - 31.595 ppm 11/18/2024 6:58 AM EDT [facility] STAPHYLOCOCCUS AUREUS Not Detected 26.000 - 31.595 ppm 11/18/2024 6:58 AM EDT [facility] STREPTOCOCCUS AGALACTIAE (GROUP B STREP) 0 26.000 - 32.435 ppm 11/18/2024 6:58 AM EDT [facility] STREPTOCOCCUS AGALACTIAE (GROUP B STREP) Not Detected 26.000 - 32.435 ppm 11/18/2024 6:58 AM EDT [facility] RENE ALBICANS, PARAPSILOSIS, TROPICALIS 0 23.000 - 30.347 ppm 11/18/2024 6:58 AM EDT [facility] RENE ALBICANS, PARAPSILOSIS, TROPICALIS Not Detected 23.000 - 30.347 ppm 11/18/2024 6:58 AM EDT [facility] RENE GLABRATA 0 23.000 - 31.618 ppm 11/18/2024 6:58 AM EDT [facility] RENE GLABRATA Not Detected 23.000 - 31.618 ppm 11/18/2024 6:58 AM EDT [facility] RENE KRUSEI 0 23.000 - 30.873 ppm 11/18/2024 6:58 AM EDT [facility] RENE KRUSEI Not Detected 23.000 - 30.873 ppm 11/18/2024 6:58 AM EDT [facility] SERRATIA MARCESCENS 0 23.000 - 31.581 ppm 11/18/2024 6:58 AM EDT [facility] SERRATIA MARCESCENS Not Detected 23.000 - 31.581 ppm 11/18/2024 6:58 AM EDT [facility] STREPTOCOCCUS PYOGENES (GROUP A STREP) 0 19.961 - 24.689 ppm 11/18/2024 6:58 AM EDT [facility] STREPTOCOCCUS PYOGENES (GROUP A STREP) Not Detected 19.961 - 24.689 ppm 11/18/2024 6:58 AM EDT [facility] STAPHYLOCOCCUS EPIDERMIDIS, HAEMOLYTICUS, LUGDUNENSIS, SAPROPHYTICUS (URINA 0 19.961 - 24.689 ppm 11/18/2024 6:58 AM EDT [facility] STAPHYLOCOCCUS EPIDERMIDIS, HAEMOLYTICUS, LUGDUNENSIS, SAPROPHYTICUS (URINA Not Detected 19.961 - 24.689 ppm 11/18/2024 6:58 AM EDT [facility] STAPHYLOCOCCUS EPIDERMIDIS, HAEMOLYTICUS, LUGDUNENSIS, SAPROPHYTICUS (URINA 0 19.961 - 24.689 ppm 11/18/2024 6:58 AM EDT [facility] STAPHYLOCOCCUS EPIDERMIDIS, HAEMOLYTICUS, LUGDUNENSIS, SAPROPHYTICUS (URINA Not Detected 19.961 - 24.689 ppm 11/18/2024 6:58 AM EDT [facility] Urine 11/17/2024 12:5 2 PM EDT 11/18/2024 1:25 AM EDT us Rosalva Welsh DO LAB BLOOD ORDERABLES Final Resul t [facility] [address] [place] [address] * US OB follow up transabdominal approach (11/02/2024 10:01 AM EDT) Anatomical Region Laterality Modality Body Ultrasound 11/03/2024 12:0 7 PM EDT Impressions 11/03/2024 12:20 PM EDT 1. Single, live intrauterine , current sonographic age of 30 weeks and 1 day, with an estimated date of delivery of January 10, 2025 (prior JAN January 12, 2025). 2. Current estimated weight 1519 grams (37.0% percentile), prior percentile 24.5%. * Estimated Weight (g) by Percentile is based upon an accurate estimated age based on last menstrual period. TRANSCRIBED BY: ELECTRONICALLY SIGNED BY: Froilan Silva MD Narrative 11/03/2024 12:20 PM EDT FINDINGS: Comparison August 29, 2024. A single, live intrauterine is present with normal cardiac rate of 145 beats per minute. Normal activity and amniotic fluid volume. Amniotic fluid index is 16 cm. Morphology is grossly normal. The cervix is not visualized. The current sonographic age is 30 weeks and 1 day, based on the following measurements: BPD 7.5 cm (30 weeks, 0 days) Head Circumference 27.8 cm (30 weeks, 3 days) Abdominal Circumference 26.0 cm (30 weeks, 1 day) Femur Length 5.7 cm (30 weeks, 1 day) Presentation Cephalic Weight (g) by Percentile 37.0 % * These measurements result in an estimated date of delivery of January 10, 2025. The current estimated weight is 1519 grams +/- 228 grams (3 pounds, 6 ounces). Procedure Note Froilan Silva MD - 11/03/2024 FINDINGS: Comparison August 29, 2024. A single, live intrauterine is present with normal cardiacrate of 145 beats per minute. Normal activity and amniotic fluidvolume. Amniotic fluid index is 16 cm. Morphology is grossly normal. Thecervix is not visualized. The current sonographic age is 30 weeks and 1day, based on the following measurements: BPD 7.5 cm (30 weeks, 0 days) Head Circumference 27.8 cm (30 weeks, 3 days) Abdominal Circumference 26.0 cm (30 weeks, 1 day) Femur Length 5.7 cm (30 weeks, 1 day) Presentation Cephalic Weight (g) by Percentile 37.0 % * These measurements result in an estimated date of delivery of December. The current estimated weight is 1519 grams +/- 228 grams (3pounds, 6 ounces). IMPRESSION: 1. Single, live intrauterine , current sonographic age of 30weeks and 1 day, with an estimated date of delivery of January 10, 2025(prior JAN January 12, 2025). 2. Current estimated weight 1519 grams (37.0% percentile), priorpercentile 24.5%. * Estimated Weight (g) by Percentile is based upon an accurateestimated age based on last menstrual period. TRANSCRIBED BY: ELECTRONICALLY SIGNED BY: Froilan Silva MD us Rosalva Welsh DO [facility] OB US PROCEDURES Final Resul t * (ABNORMAL) RECURRENT VAGINITIS (HTRX) (10/20/2024 12:04 PM EDT) Only the most recent of2 resultswithin the time period is included. Pathologist [facility] ATOPOBIUM VAGINAE 0 19.961 - 24.689 ppm 10/21/2024 6:55 AM EDT [facility] ATOPOBIUM VAGINAE Not Detected 19.961 - 24.689 ppm 10/21/2024 6:55 AM EDT [facility] BVAB 2,3 (BACTERIAL VAGINOSIS ASSOCIATED BACTERIA 2, 3); MOBILUNCUS SPP 27.579(A) 19.961 - 24.689 ppm 10/21/2024 6:55 AM EDT [facility] BVAB 2,3 (BACTERIAL VAGINOSIS ASSOCIATED BACTERIA 2, 3); MOBILUNCUS SPP Detected(A) 19.961 - 24.689 ppm 10/21/2024 6:55 AM EDT [facility] RENE ALBICANS, PARAPSILOSIS, TROPICALIS 0 23.000 - 30.347 ppm 10/21/2024 6:55 AM EDT [facility] RENE ALBICANS, PARAPSILOSIS, TROPICALIS Not Detected 23.000 - 30.347 ppm 10/21/2024 6:55 AM EDT [facility] RENE GLABRATA 0 23.000 - 31.618 ppm 10/21/2024 6:55 AM EDT [facility] RENE GLABRATA Not Detected 23.000 - 31.618 ppm 10/21/2024 6:55 AM EDT [facility] RENE KRUSEI 0 23.000 - 30.873 ppm 10/21/2024 6:55 AM EDT [facility] RENE KRUSEI Not Detected 23.000 - 30.873 ppm 10/21/2024 6:55 AM EDT [facility] CHLAMYDIA TRACHOMATIS 0 23.000 - 31.586 ppm 10/21/2024 6:55 AM EDT [facility] CHLAMYDIA TRACHOMATIS Not Detected 23.000 - 31.586 ppm 10/21/2024 6:55 AM EDT [facility] GARDNERELLA VAGINALIS 0 19.961 - 24.689 ppm 10/21/2024 6:55 AM EDT [facility] GARDNERELLA VAGINALIS Not Detected 19.961 - 24.689 ppm 10/21/2024 6:55 AM EDT [facility] MEGASPHAERA (TYPES 1, 2) 0 19.961 - 24.689 ppm 10/21/2024 6:55 AM EDT [facility] MEGASPHAERA (TYPES 1, 2) Not Detected 19.961 - 24.689 ppm 10/21/2024 6:55 AM EDT [facility] NEISSERIA GONORRHOEAE 0 23.000 - 32.587 ppm 10/21/2024 6:55 AM EDT [facility] NEISSERIA GONORRHOEAE Not Detected 23.000 - 32.587 ppm 10/21/2024 6:55 AM EDT [facility] TRICHOMONAS VAGINALIS 0 23.000 - 31.995 ppm 10/21/2024 6:55 AM EDT [facility] TRICHOMONAS VAGINALIS Not Detected 23.000 - 31.995 ppm 10/21/2024 6:55 AM EDT [facility] MYCOPLASMA GENITALIUM 0 19.961 - 24.689 ppm 10/21/2024 6:55 AM EDT [facility] MYCOPLASMA GENITALIUM Not Detected 19.961 - 24.689 ppm 10/21/2024 6:55 AM EDT [facility] Tissue 10/20/2024 12:0 4 PM EDT 10/21/2024 2:32 AM EDT us Rosalva Welsh DO LAB BLOOD ORDERABLES Final Resul t [facility] [address] [place] [address] * GLUCOSE 1 HOUR (10/20/2024 8:20 AM EDT) Pathologist [facility] GLUCOSE 1 HOUR 119 <130 mg/dL TB 10/20/2024 8:20 AM EDT 10/20/2024 8:22 AM EDT Narrative [facility] - 10/20/2024 9:06 AM EDT [facility] LAB BLOOD ORDERABLES Final Resul t [facility] * (ABNORMAL) ALL CBC WITH AUTO DIFF (10/20/2024 8:20 AM EDT) TB WBC 10.0 4.0 - 11.0 10 3/uL TBH TBH RBC 3.87(L) 4.20 - 5.40 10 6/uL TBH TBH HGB 12.2 12.0 - 16.0 g/dL TBH TBH HCT 35.7(L) 36.0 - 48.0 % TBH TBH MCV 92.2 81.0 - 99.0 fL TBH TBH MCH 31.5 26.7 - 34.0 pg TBH TBH MCHC 34.2 29.9 - 35.2 g/dL TBH TBH RDW 12.3 11.0 - 15.0 % TBH TBH PLT 276 150 - 450 10 3/uL TBH TBH MPV 9.8 9.5 - 13.5 fL TBH NEUTROPHILS PERCENT AUTO 71.1 43.0 - 75.0 % TBH LYMPHOCYTES PERCENT AUTO 19.8(L) 20.5 - 60.0 % TBH MONOCYTES PERCENT AUTO 6.4 1.7 - 12.0 % TBH TBH EO % 1.9 0.9 - 7.0 % TBH BASOPHILS PERCENT AUTO 0.4 0.2 - 2.0 % TBH IMMATURE GRANULOCYTES PCT AUTO 0.4 0.0 - 0.5 % TBH NEUTROPHILS ABSOLUTE AUTO 7.1(H) 1.4 - 6.5 10 3/uL TBH LYMPHOCYTES ABSOLUTE AUTO 2.0 1.2 - 3.8 10 3/uL TBH MONOCYTES ABSOLUTE AUTO 0.6 0.3 - 0.8 10 3/uL TBH TBH EO # 0.2 0.0 - 0.7 10 3/uL TBH BASOPHILS ABSOLUTE AUTO 0.0 0.0 - 0.1 10 3/uL TBH IMMATURE GRANULOCYTES ABS AUTO 0.04(H) 0.00 - 0.03 10 3/uL TBH 10/20/2024 8:20 AM EDT 10/20/2024 8:22 AM EDT Narrative [facility] - 10/20/2024 8:57 AM EDT [facility] Final Result TISHA TB * IGP,APTIMA HPV,AGE GDLN (09/27/2024 10:45 AM EDT) Pathologist [facility] AGE GDLN ACOG TESTING Note . TB Comment: TESTS RESULT FLAG UNITS REF RANGE LAB Clinician Provided Cytology Information Source.............Vagina No. of containers..01 ThinPrep Vial Age Lenny MCNEAL Lorena... FLAG LEGEND: L-Low Normal,H-High Normal,LL-Alert Low,HH-Alert High <-Panic Low,>-Panic High,A-Abnormal,AA-Critical Abnormal Performed at: 01 =G [facility] [place] [address] Leia Carbajal MD, IGP, RFX APTIMA HPV ASCU Note . [facility] Comment: TESTS RESULT FLAG UNITS REF RANGE LAB DIAGNOSIS: 02 NEGATIVE FOR INTRAEPITHELIAL LESION OR MALIGNANCY. Specimen adequacy: 02 Satisfactory for evaluation. Performed by: Roland Hanson, Dairy Quality Assurance Officer ([facility]) . 02 Note: Note 03 The Pap [...] High,A-Abnormal,AA-Critical Abnormal Performed at: 02 [facility] [address] [place] [address] Carter Hall MD, 03 WB [facility] [address] [address] Leia Carbajal MD, Performed at: =G - [facility] [address] [id number] Chha: Leia Carbajal MD, Phone: [phone] Performed at: [facility] - [facility] [address] [address] [place], [place] [id number] Chha: Carter Hall MD, Phone: [phone] 09/27/2024 10:4 5 AM EDT 09/27/2024 8:41 PM EDT Narrative [facility] - 10/03/2024 3:08 PM EDT SPATULA-ALONE VAGINA [facility] LAB BLOOD ORDERABLES Final Resul t Performing Organization Address [facility]/ZIP Co de Phone Number [facility] TBH * Pap Smear (09/27/2024 12:00 AM EDT) Swab Cervical swab / Unknown [facility] CYTOLOGY ORDERABLES Final Re sult Performing Organization Address [facility]/ZIP Co de Phone Number EXTERNAL LAB * US OB INCOMPLETE ANATOMY (09/26/2024 10:13 AM EDT) Anatomical Region Laterality Modality Other 09/26/2024 10:1 3 AM EDT Narrative 09/26/2024 10:16 [place] [address] Ultrasound Report Signed Patient: LOYDA ADAME MR#: [id number] : 2000 Acct:[id number] Age/Sex: 24 / F ADM Date: 09/26/24 Loc: US Attending Dr: Rosalva Welsh D.O. Ordering Physician: Rosalva Welsh D.O. Date of Service: 09/26/24 Procedure(s): US OB incomplete anatomy Accession Number(s): [id number] cc: Rosalva Welsh D.O.; Shaw Jorgensen M.D. [place] [id number] Patient Name: LOYDA ADAME MRN: [id number] date: 2000 Sex: F Assigned Patient Location: US Current Patient Location: US Accession/Order Number: [id number] Exam Date: 09/26/2024 10:11 Report Date: 09/26/2024 [...] Boyd M.D. 09/26/2024 10:13 AM Dictation Location: [place] [address] Electronically authenticated by: [id number] Y Date: 09/26/2024 10:13 Dictated By: Gina Boyd M.D. Signed By: 09/26/24 1016 DD/ 1013 TD/TT: Receivable Executive: Procedure Note Radiology, Radiologist, - 09/26/2024 [place] [address] Ultrasound Report Signed Patient: LOYDA ADAME CMR#: [id number] : 2000Acct:[id number] Age/Sex: 24 / FADM Date: 09/26/24 Loc: US Attending Dr: Rosalva Welsh D.O. Ordering Physician: Rosalva Welsh D.O. Date of Service: 09/26/24 Procedure(s): US OB incomplete anatomy Accession Number(s): [id number] cc: Rosalva Welsh D.O.; Shaw Jorgensen M.D. The [place] [address] Patient Name: LOYDA ADAME MRN: [id number] date: 2000 Sex: F Assigned Patient Location: US Current Patient Location: US Accession/Order Number: [id number] Exam Date: 09/26/2024 10:11 Report Date: 09/26/2024 [...] Boyd M.D. 09/26/2024 10:13 AM Dictation Location: [place] [address] Electronically authenticated by: [id number] Y Date: 0:13 Dictated By: Gina Boyd M.D. Signed By:09/26/24 1016 DD/ 1013 TD/TT: Receivable Executive: Rosalva Welsh DO [facility] IMAGING Final Result from Last 3 Months Additional Health Concerns Active Problems Noted Date Diagnosed Date OB Reminders 09/20/2024 Insurance [employer] Care Teams Commercial Litigation Paralegal Relationship Specialty Start Date End Date Shaw Jrogensen MD [address] [place] [address] PCP - General Family Medicine 09/03/22
--- OUTSIDE RECORDS SUMMARY | 2024-12-13 19:50 | XMS_ITS | Encounter Summary ---
Author Organization [facility] Address [address] [place] [address] Care Team Providers Care Cops Name Role Phone Shaw Jorgensen MD Primary Care Provider [phone] Encounter Details Date Type Department Care Team (Late st Contact Info) Description 09/01/2024 Abstract [facility]BB[facility] [address] [place] [address] Aden Welsh DO [address] [place] [address] Social History Tobacco Use Types Packs/Day Years [...] [address] [place] [phone] Aden Welsh DO [address] [place] [address] documented as of this encounter Visit Diagnoses Not on filedocumented in this encounter Care Teams Cops Relationship Specialty Start Date End Date Shaw Jorgensen MD [address] [facility] [place] [address] PCP - General Family Medicine 09/03/22 documented as of this encounter
--- OUTSIDE RECORDS SUMMARY | 2024-12-13 19:50 | XMS_ITS | Encounter Summary ---
Author Organization [facility] Address [address] [place] [address] Care Team Providers Care Director Dietetics Department Name Role Phone Shaw Jorgensen MD Primary Care Provider [phone] Encounter Details Date Type Department Care Team (Late st Contact Info) Description 08/15/2024 Abstract [facility] [address] [place] [place] [address] Aden Welsh DO [address] [place] [address] Social History Tobacco Use Types Packs/Day Years [...] AM EDT Routine [facility] [address] [place] [phone] Aden Welsh DO [address] [place] [address] documented as of this encounter Visit Diagnoses Not on filedocumented in this encounter Care Teams Director Dietetics Department Relationship Specialty Start Date End Date Shaw Jorgensen MD [address] [facility] [place] [address] PCP - General Family Medicine 09/03/22 documented as of this encounter
--- OUTSIDE RECORDS SUMMARY | 2024-12-13 19:50 | XMS_ITS | Encounter Summary ---
Author Organization [facility] Address [address] [place] [address] [place] [address] Care Team Providers Care Channel Development Director Name Role Phone Shaw Jorgensen MD Primary Care Provider [phone] Encounter Details Date Type Department Care Team (Late st Contact Info) Description 10/05/2024 Orders Only [facility] [address] [place] [address] Mariana Bravo LPN [address] [place] [address] Social History Tobacco Use Types [...] AM EDT Routine [facility] [address] [place] [phone] Aden Welsh DO [address] [facility] [address] [facility] [place] [address] documented as of this encounter Goals Goal Patient Goal Type Associated Problems Recent Progress Patient-Stated? Author Reminders Care Plan OB Reminders No Open Scheduling, Background documented as of this encounter Procedures Procedure Name Priority Date/Time Associated Diagnosis Comments PAP SMEAR Routine 09/27/2024 12:00 AM EDT documented in this encounter Results * Pap Smear (09/27/2024 12:00 AM EDT) Swab Cervical swab / Unknown Tran [facility] ORDERABLES Final Re sult [facility] documented in this encounter Visit Diagnoses Not on filedocumented in this encounter Additional Health Concerns Active Problems Noted Date Diagnosed Date OB Reminders 09/20/2024 documented as of this encounter Care Teams Channel Development Director Relationship Specialty Start Date End Date Shaw Jorgensen MD [address] [place] [address] PCP - General Family Medicine 09/03/22 documented as of this encounter
--- OUTSIDE RECORDS SUMMARY | 2024-12-13 19:50 | XMS_ITS | Encounter Summary ---
Author Organization [facility] Address [address] [place] [address] Care Team Providers Care Mine Safety Director Name Role Phone Shaw Jorgensen MD Primary Care Provider [phone] Encounter Details Date Type Department Care Team (Late st Contact Info) Description 12/09/2023 Orders Only [facility] [address] [place] [address] Vaishali Villagomez LPN [address] [facility] [place] [address] Social History Tobacco Use Types Packs/Day Years [...] AM EDT Routine [facility] [address] [place] [phone] Aden Welsh DO [address] [facility] [place] [address] documented as of this encounter Procedures Procedure [...] on filedocumented in this encounter Care Teams Mine Safety Director Relationship Specialty Start Date End Date Shaw Jorgensen MD [address] [facility] [place] [address] PCP - General Family Medicine 09/03/22 documented as of this encounter
--- OUTSIDE RECORDS SUMMARY | 2024-12-13 19:50 | XMS_ITS | Encounter Summary ---
Author Organization [facility] Address [address] [place] [address] Care Team Providers Care Exercise Physiologist Certified Name Role Phone Shaw Jorgensen MD Primary Care Provider [phone] Encounter Details Date Type Department Care Team (Late st Contact Info) Description 12/13/2024 Bamboo flowsheet [facility] [address] [place] [address] Aden Welsh DO [address] [place] [address] Social History Tobacco Use Types Packs/Day Years [...] AM EDT Routine [facility] [address] [place] [phone] Aden Welsh DO [address] [place] [address] documented as of this encounter Goals Goal Patient Goal Type Associated Problems Recent Progress Patient-Stated? Author Reminders Care Plan OB Reminders No Open Scheduling, Background documented as of this encounter Visit Diagnoses Not on filedocumented in this encounter Additional Health Concerns Active Problems Noted Date Diagnosed Date OB Reminders 09/20/2024 documented as of this encounter Care Teams Exercise Physiologist Certified Relationship Specialty Start Date End Date Shaw Jorgensen MD [address] [place] [address] PCP - General Family Medicine 09/03/22 documented as of this encounter
--- OUTSIDE RECORDS SUMMARY | 2024-12-13 19:50 | XMS_ITS | Encounter Summary ---
Author Organization [facility] Address [address] [place] [address] Care Team Providers Care Building Construction Teacher Name Role Phone Shaw Jorgensen MD Primary Care Provider [phone] Encounter Details Date Type Department Care Team (Late st Contact Info) Description 08/08/2024 Abstract [facility] [address] [place] [address] Aden Welsh DO [address] [facility] [place] [address] Social History Tobacco Use Types Packs/Day Years [...] [address] [place] [address] Aden Welsh DO [address] [facility] [place] [address] documented as of this encounter Visit Diagnoses Not on filedocumented in this encounter Care Teams Building Construction Teacher Relationship Specialty Start Date End Date Shaw Jorgensen MD [address] [facility] [place] [address] PCP - General Family Medicine 09/03/22 documented as of this encounter
--- OUTSIDE RECORDS SUMMARY | 2024-12-13 19:50 | XMS_ITS | Encounter Summary ---
Author Organization [facility] Address [address] [place] [address] Care Team Providers Care Short Filler Bunch Machine Operator Name Role Phone Shaw Jorgensen MD Primary Care Provider [phone] Encounter Details Date Type Department Care Team (Latest Contact Info) Description 12/08/2024 Travel Social History Tobacco Use Types Packs/Day [...] AM EDT Routine [facility] [address] [place] [phone] Aden Welsh, [address] [place] [address] documented as of this encounter Goals Goal Patient Goal Type Associated Problems Recent Progress Patient-Stated? Author Reminders Care Plan OB Reminders No Open Scheduling, Background documented as of this encounter Visit Diagnoses Not on filedocumented in this encounter Additional Health Concerns Active Problems Noted Date Diagnosed Date OB Reminders 09/20/2024 documented as of this encounter Care Teams Short Filler Bunch Machine Operator Relationship Specialty Start Date End Date Shaw Jorgensen MD [address] [place] [address] PCP - General Family Medicine 09/03/22 documented as of this encounter
--- OUTSIDE RECORDS SUMMARY | 2024-12-13 19:50 | XMS_ITS | Encounter Summary ---
Author Organization [facility] Address [address] [place] [address] [place] [address] Care Team Providers Care Gunnery/Ordnance Officer Name Role Phone Shaw Jorgensen MD Primary Care Provider [phone] Encounter Details Date Type Department Care Team (Late st Contact Info) Description 04/15/2023 Clinisync Result Encounter [facility] External Department Unsolicited Rosalva Welsh DO [address] [place] [address] Social History Tobacco Use Types Packs/Day Years [...] AM EDT Routine [facility] [address] [facility] [place] [address] Rosalva Welsh, DO [address] [place] [address] [place] [address] documented as of this encounter Procedures Procedure Name Priority Date/Time Associated Diagnosis Comments US PELVIS W/ TRANSVAGINAL 04/15/2023 3:25 PM EST documented in this encounter Results * US PELVIS W/ TRANSVAGINAL (04/15/2023 3:25 PM EST) Anatomical Region Laterality Modality Other 04/15/2023 3:25 PM EST Narrative 04/15/2023 3:28 PM EST [address] [address] Ultrasound Report Signed Patient: LOYDA GIBSON MR#: [id number] : 2000 Acct:[id number] Age/Sex: 23 / F ADM Date: 04/15/23 Loc: US Attending Dr: Rosalva Welsh D.O. Ordering Physician: Rosalva Welsh D.O. Date of Service: 04/15/23 Procedure(s): US pelvis w/ transvaginal Accession Number(s): [id number] cc: Rosalva Welsh D.O.; Shaw Jorgensen M.D. [address] [address] Patient Name: LOYDA GIBSON MRN: [id number] date: 2000 Sex: F Assigned Patient Location: US Current Patient Location: US Accession/Order Number: [id number] Exam Date: 04/15/2023 14:09 Report Date: 04/15/2023 [...] Signed By: 04/15/23 1528 DD/ 1525 TD/TT: Requirements Manager: Procedure Note Radiology, Radiologist, MD - 04/15/2023 [place] [address] Ultrasound Report Signed Patient: LOYDA GIBSON CMR#: [id number] : 2000Acct:[id number] Age/Sex: FADM Date: 04/15/23 Loc: US Attending Dr: Rosalva Welsh D.O. Ordering Physician: Rosalva Welsh D.O. Date of Service: 04/15/23 Procedure(s): US pelvis w/ transvaginal Accession Number(s): [id number] cc: Rosalva Welsh D.O.; Shaw Jorgensen M.D. The [address] [id number] Patient Name: LOYDA GIBSON MRN: [id number] date: 2000 Sex: F Assigned Patient Location: US Current Patient Location: US Accession/Order Number: [id number] Exam Date: 04/15/2023 14:09 Report Date: 04/15/2023 [...] M.D. Signed By:04/15/23 1528 DD/ 1525 TD/TT: Requirements Manager: us Rosalva Anitha DO [facility] Final Result documented in this encounter Visit Diagnoses Not on filedocumented in this encounter Care Teams Gunnery/Ordnance Officer Relationship Specialty Start Date End Date Shaw Jorgensen MD [address] [place] [address] PCP - General Family Medicine 09/03/22 documented as of this encounter
--- OUTSIDE RECORDS SUMMARY | 2024-12-13 19:50 | XMS_ITS | Encounter Summary ---
Author Organization [facility] Address [address] [place] [address] Care Team Providers Care Mud Jack Operator Name Role Phone Shaw Jorgensen MD Primary Care Provider [phone] Encounter Details Date Type Department Care Team (Late st Contact Info) Description 08/15/2024 Abstract [facility] [address] [place] [address] Aden Welsh DO [address] [place] [address] Social History Tobacco Use Types Packs/Day Years [...] AM EDT Routine [facility] [address] [place] [address] Aden Welsh DO [address] [facility] [place] [address] documented as of this encounter Visit Diagnoses Not on filedocumented in this encounter Care Teams Mud Jack Operator Relationship Specialty Start Date End Date Shaw Jorgensen MD [address] [facility] [place] [address] PCP - General Family Medicine 09/03/22 documented as of this encounter
--- OUTSIDE RECORDS SUMMARY | 2024-12-13 19:50 | XMS_ITS | Encounter Summary ---
Author Organization [facility] Address [address] [place] [address] Care Team Providers Care Rodbuster Name Role Phone Shaw Jorgensen MD Primary Care Provider [phone] Encounter Details Date Type Department Care Team (Late st Contact Info) Description 08/16/2024 Abstract [facility] [address] [place] [address] Aden Welsh DO [address] [facility] [place] [address] Social History Tobacco Use Types Packs/Day Years [...] AM EDT Routine [facility] [address] [place] [address] Aden Welsh DO [address] [facility] [place] [address] documented as of this encounter Visit Diagnoses Not on filedocumented in this encounter Care Teams Rodbuster Relationship Specialty Start Date End Date Shaw Jorgensen MD [address] [facility] [place] [address] PCP - General Family Medicine 09/03/22 documented as of this encounter
--- OUTSIDE RECORDS SUMMARY | 2024-12-13 19:51 | XMS_ITS | CCD ---
Author Organization [facility] CliniSyde Care Team Providers Care Fruit Dryer Name Role Phone ANITHA ., DR BLACKWELL [...] ANITHA ., DR BLACKWELL Consulting Unavailable RACHEL GARCIA Admitting Unavailable RACHEL GARCIA Attending Unavailable JAIR ., DR HAY Primary Care Unavailable RACHEL GARCIA Consulting Unavailable ANITHA ., DR BLACKWELL Admitting Unavailable ANITHA ., DR BLACKWELL Attending Unavailable CHIY ., DR HAY Primary Care Unavailable AHSAN, DR NIKO Selby Consulting Unavailable Shaw Jorgensen MD Primary Care Provider Shaw Jorgensen Primary Care Physician [phone] Israel POND Attending Unavailable Shaw Jorgensen Referring Unavailable Israel POND Attending Unavailable Anatoly PARK Attending Unavailable Shaw Jorgensen MD Primary Care Provider ADEN WELSH Attending Unavailable TRAN PEREZ Attending Unavailable ADEN WELSH Attending Unavailable ADEN WELSH Referring Unavailable TRAN PEREZ Attending Unavailable ADEN WELSH Attending Unavailable RACHEL GARCIA Attending Unavailable Allergies Allergy Classification Reported Allergen(s) Allergy Type Date of Onset Reaction(s) Facility (1 source) No Known Medication Allergies; Translations: [No Known Medication Allergies] Propensity to adverse reactions (disorder) [facility] Repository Medications Current Medications Medication Drug Class(es) Dates Sig (Normalized) Sig (Original) cetirizine hydrochloride 10 mg oral tablet (20 sources) Histamine-1 Receptor Antagonist Start: 12-25-2023 take 1 tablet by mouth once daily cetirizine 10 mg Tab 10 mg = 1 tab(s), Oral, Daily, Refills(s) 0 Start Date: 12/25/23 Status: Ordered DULoxetine 60 mg delayed release oral capsule (20 sources) Serotonin and Norepinephrine Reuptake Inhibitor take [...] Daily 30 tablet 6 08/05/2024 09/04/2024 Active metroNIDAZOLE 500 mg oral tablet (2 sources) Nitroimidazole Antimicrobial Start: 10-21-2024 End: 11-02-2024 take 1 tablet by mouth in the morning metroNIDAZOLE (Flagyl) 500 MG tablet Indications: BV (bacterial vaginosis) Take 1 tablet (500 mg) by mouth in the morning and 1 tablet (500 mg) before bedtime. Do all this for 7 days. Do not drink alcohol while taking this medication. 14 tablet 10/21/2024 11/02/2024 Discontinued pantoprazole 40 mg delayed release oral tablet (1 source) Proton Pump Inhibitor Start: 04-06-2024 take 1 tablet by mouth once daily Pantoprazole [address] Tab 40 mg = 1 tab(s), Oral, Daily, Refills(s) 0 Start Date: 04/06/24 Status: Ordered Vit-Fe Fumarate-FA ( VITAMIN PO) (20 sources) Vit-Fe Fumarate-FA ( VITAMIN PO) Take by mouth Active QUEtiapine 50 mg oral tablet (7 sources) Atypical Antipsychotic Start: 12-25-2023 take 1 tablet by mouth once daily quetiapine 50 mg oral tablet 50 mg = 1 tab(s), Oral, Daily, Refills(s) 0 Start Date: 12/25/23 Status: Ordered Start: 12-25-2023 take 3 tablets by mo ut once daily quetiapine 50 mg oral tablet 150 mg = 3 tab(s), Oral, Daily, Refills(s) 0 Start Date: 12/25/23 Status: Ordered Start: 03-08-2023 End: 08-05-2024 take 2 tablets by mouth in the morning QUEtiapine (SEROquel) 50 MG tablet Take 100 mg by mouth in the morning. 03/08/2023 08/05/2024 Discontinued Start: 03-15-2022 End: 05-05-2023 QUEtiapine (SEROquel) 25 MG tablet Szphqugoz-Ncdlqwapa-Vifhxfrh d (Myfembree) 40-1-0.5 MG tablet (2 sources) Start: 09-07-2023 take 1 tablet by mouth once daily Hpmqejrfx-Jybhpdsjh-Zgikiurpr (Myfembree) 40-1-0.5 MG tablet Indications: Endometriosis Take [...] 12-31-2023 Episodic Other and delivery including normal (16 sources) ; Translations: [Encounter for supervision of [...] [25 weeks gestation of ] 09-27-2024 Episodic Residual codes; unclassified (2 sources) Gestation period, 28 weeks; Translations: [28 weeks gestation of ] 10-20-2024 Episodic Residual codes; unclassified (2 sources) Gestation period, 30 weeks; Translations: [30 weeks gestation of ] 11-02-2024 Episodic Residual codes; unclassified (2 sources) Gestation period, 32 weeks; Translations: [32 weeks gestation of ] 11-17-2024 Episodic Residual codes; unclassified (2 sources) Gestation period, 34 weeks; Translations: [34 weeks gestation of ] 12-01-2024 Episodic Residual codes; unclassified (2 sources) Gestation period, 36 weeks; Translations: [36 weeks gestation of ] 12-13-2024 Episodic Sexually transmitted infections (not HIV or hepatitis) (2 sources) Chlamydia trachomatis infection; Translations: [Sexually transmitted chlamydial infection of other sites] 10-20-2024 Episodic Unclassified (1 source) CONTACT W/AND (SUSP) EXPOS COVID-19; Translations: [CONTACT W/AND (SUSP) EXPOS COVID-19] Onset: 10-29-2021 Unclassified (19 sources) OB Reminders Onset: 09-20-2024 09-20-2024 Past or Other Problems Problem Classification Problem Date Documented Da te Episodic/Chronic Abdominal pain (20 sources) Pelvic and perineal pain; Translations: [Pain in female pelvis] Onset: 10-25-2021 Episodic Other female genital disorders (4 sources) Other specified conditions associated with female genital organs and menstrual cycle; Translations: [OTH SPEC COND FE GEN ORG MENST CYCL] Onset: 02-04-2022 Episodic Results Test Name Value Interpretation Reference Range Facility Urinalysis macro (dipstick) panel (U)on 12-13-2024 Bilirubin, UA Negative Negative - 4(70) +++ mg/dL [facility] Blood, UA Positive Negative - 50 Ralf/mcL [facility] Clarity, UA Clear [facility] Color, UA Straw [facility] Glucose, UA Negative Negative - 1999(110) ++++ mg/dL [facility] Interpretation and review of laboratory results Abnormal [facility] Ketones, UA Negative Negative - 160(16) ++++ mg/dL [facility] Leukocytes, UA Positive Negative - 500+++ Joce/mcL [facility] Nitrite, UA Negative Negative - Positive [facility] pH, UA 7 5 - 9 [facility] Protein, UA Negative Negative - 1999(20) ++++ mg/dL [facility] Spec Grav, UA 1.01 1 - 1.03 [facility] Urobilinogen, UA 1.0 0.2 - 12 mg/dL [facility] Urinalysis macro (dipstick) panel (U)on 11-17-2024 Bilirubin, UA Positive Negative - 4(70) +++ mg/dL [facility] Blood, UA Negative Negative - 50 Ralf/mcL [facility] Clarity, UA Clear [facility] Color, UA Jessica [facility] Glucose, UA Negative Negative - 1999(110) ++++ mg/dL [facility] Interpretation and review of laboratory results Abnormal [facility] Ketones, UA Positive Negative - 160(16) ++++ mg/dL [facility] Leukocytes, UA Positive Negative - 500+++ Joce/mcL [facility] Nitrite, UA Negative Negative - Positive [facility] pH, UA 6 5 - 9 [facility] Protein, UA Positive Negative - 1999(20) ++++ mg/dL [facility] Spec Grav, UA 1.03 1 - 1.03 [facility] Urobilinogen, UA >=8.0 0.2 - 12 mg/dL [facility] US OB FOLLOW UP TRANSABDOMIN AL APPROACHon 11-02-2024 US OB FOLLOW UP TRANSABDOMINAL APPROACH FINDINGS: Comparison August 29, 2024. A single, [...] +/- 228 grams (3 pounds, 6 ounces). IMPRESSION: 1. Single, live intrauterine [...] BY: ELECTRONICALLY SIGNED BY: Froilan Silva MD Normal Not Available Comment on above: Order Comment: US OB SCAN FOR GROWTH Estimated Date of Delivery: 01/10/25 Gestational Age as of 10/20/2024: 30w1d Urinalysis macro (dipstick) panel (U)on 11-02-2024 Bilirubin, UA Negative Negative - 4(70) +++ mg/dL [facility] Blood, UA Negative Negative - 50 Ralf/mcL [facility] Clarity, UA Clear [facility] Color, UA Yellow [facility] Glucose, UA Negative Negative - 2000(110) ++++ mg/dL [facility] Interpretation and review of laboratory results Normal [facility] Ketones, UA Negative Negative - 160(16) ++++ mg/dL [facility] Leukocytes, UA Negative Negative - 500+++ Joce/mcL [facility] Nitrite, UA Negative Negative - Positive [facility] pH, UA 6.5 5 - 9 [facility] Protein, UA Negative Negative - 1999(20) ++++ mg/dL [facility] Spec Grav, UA 1.015 1 - 1.03 [facility] Urobilinogen, UA 1.0 0.2 - 12 mg/dL [facility] ALL CBC WITH AUTO DIFFon BASOPHILS ABSOLUTE AUTO 0 [facility] Basophils/100 WBC (Bld) 0.4 % 0.2 - 2.0 % [facility] Eosinophils/100 WBC (Bld) 1.9 % 0.9 - 7.0 % [facility] Erythrocyte distribution width (RBC) [Ratio] 12.3 % 11.0 - 15.0 % [facility] Hematocrit (Bld) [Volume fraction] 35.7 % Low 36.0 - 48.0 % [facility] Hemoglobin (Bld) [Mass/Vol] 12.2 g/dL 12.0 - 16.0 g/dL [facility] IMMATURE GRANULOCYTES ABS AUTO 0.[address] [facility] Immature granulocytes/100 WBC (Bld) 0.4 % 0.0 - 0.5 % [facility] Interpretation and review of laboratory results Abnormal [facility] LYMPHOCYTES ABSOLUTE AUTO 2 [facility] Lymphocytes/100 WBC (Bld) 19.8 % Low 20.5 - 60.0 % [facility] MCH (RBC) [Entitic mass] 31.5 pg 26.7 - 34.[address] [facility] MCHC (RBC) [Mass/Vol] 34.2 g/dL 29.9 - 35.2 g/dL [facility] MCV (RBC) [Entitic vol] 92.2 fL 81.0 - 99.[address] [facility] MONOCYTES ABSOLUTE AUTO 0.6 [facility] Monocytes/100 WBC (Bld) 6.4 % 1.7 - 12.0 % [facility] NEUTROPHILS ABSOLUTE AUTO 7.[address] [facility] Neutrophils/100 WBC (Bld) 71.1 % 43.0 - 75.0 % [facility] Platelet mean volume (Bld) [Entitic vol] 9.8 fL 9.5 - 13.[address] [facility] TBH EO # 0.2 [facility] TBH PLT 276 [facility] TB RBC 3.[address] [facility] TB WBC 10 [facility] CLINISYNC [facility] IGP,APTIMA HPV,AGE GDLNon AGE GDLN ACOG TESTING Note . [facility] Comment on above: TESTS RESULT FLAG [facility] REF RANGE LAB Clinician Provided Cytology Information Source.............Vagina No. of containers..01 ThinPrep Vial Age Algo ACOG Lorena... FLAG LEGEND: L-Low Normal,H-High Normal,LL-Alert Low,HH-Alert High <-Panic Low,>-Panic High,A-Abnormal,AA-Critical Abnormal Performed at: 01 =G [address] [phone] Leia Carbajal MD, IGP, RFX APTIMA HPV ASCU Note . [facility] Comment on above: TESTS RESULT FLAG [facility] REF RANGE LAB DIAGNOSIS: 02 NEGATIVE FOR INTRAEPITHELIAL LESION OR MALIGNANCY. Specimen adequacy: 02 Satisfactory for evaluation. Performed by: Roland Hanson Habitat Management Coordinator ([facility]) . 02 Note: Note 03 The [...] Low,>-Panic High,A-Abnormal,AA-Critical Abnormal Performed at: 02 [facility] [address] [place] [address] Carter Hall MD, [address] [address] Leia Carbajal MD, Performed at: =G - [facility] [id number] Prepress Supervisor: Leia Carbajal MD, Phone: [phone] Performed at: [facility] [id number] [place] [id number] Prepress Supervisor: Carter Hall MD, Phone: [phone] SPATULA-ALONE VAGINA [facility] Healthcare RECURRENT VAGINITIS (HTRX)on 09-28-2024 ATOPOBIUM VAGINAE 20.937 Abnormal [facility] ATOPOBIUM VAGINAE Detected Abnormal [facility] [...] TRICHOMONAS VAGINALIS Not detected [facility] Healthcare Urinalysis macro (dipstick) panel (U)on 09-27-2024 Bilirubin, UA Negative Negative - 4(70) +++ mg/dL [facility] Blood, UA Negative Negative - 50 Ralf/mcL [facility] Clarity, UA Clear [facility] Color, UA Yellow [facility] Glucose, UA Negative Negative - 2000(110) ++++ mg/dL [facility] Interpretation and review of laboratory results Abnormal [facility] Ketones, UA Negative Negative - 160(16) ++++ mg/dL [facility] Leukocytes, UA Trace Negative - 500+++ Joce/mcL [facility] Nitrite, UA Negative Negative - Positive [facility] pH, UA 7 5 - 9 [facility] Protein, UA Trace Negative - 2000(20) ++++ mg/dL [facility] Spec Grav, UA 1.02 1 - 1.03 [facility] Urobilinogen, UA 2.0 0.2 - 12 mg/dL [facility] US OB INCOMPLETE ANATOMYon 0 09-26-2024 [place] [address] Ultrasound Report Signed Patient: DONALD ADAME MR#: [id number] : 2000 Acct:[id number] Age/Sex: 24 / F ADM Date: 09/26/24 Loc: US Attending Dr: Aden Welsh D.O. Ordering Physician: Aden Welsh D.O. Date of Service: 09/26/24 Procedure(s): US OB incomplete anatomy Accession Number(s): [id number] cc: Aden Welsh D.O.; Shaw Jorgensen M.D. [place] [address] Patient Name: DONALD ADAME MRN: [id number] date: 2000 Sex: F Assigned Patient Location: US Current Patient Location: US Accession/Order Number: [id number] Exam Date: 09/26/2024 10:11 Report Date: 09/26/2024 10:13 At the request of: ADEN WELSH DO Procedure: US OB incomplete anatomy [...] Boyd M.D. 09/26/2024 10:13 AM Dictation Location: [place] [address] Electronically authenticated by: [id number] Y Date: 09/26/2024 10:13 Dictated By: Gina Boyd M.D. Signed By: 09/26/24 1016 DD/ 1013 TD/TT: Motorized Squad Sergeant: [facility] Radiology, Radiologist, - 09/26/2024 [place] [address] Ultrasound Report Signed Patient: DONALD ADAME MR#: [id number] : 2000 Acct:[id number] Age/Sex: 24 / F ADM Date: 09/26/24 Loc: US Attending Dr: Aden Welsh D.O. Ordering Physician: Aden Welsh D.O. Date of Service: 09/26/24 Procedure(s): US OB incomplete anatomy Accession Number(s): [id number] cc: Aden Welsh D.O.; Shaw Jorgensen M.D. [place] [address] Patient Name: DONALD ADAME MRN: [id number] date: 2000 Sex: F Assigned Patient Location: US Current Patient Location: US Accession/Order Number: [id number] Exam Date: 09/26/2024 10:11 Report Date: 09/26/2024 10:13 At the request of: ADEN WELSH DO Procedure: US OB incomplete anatomy [...] Boyd M.D. 09/26/2024 10:13 AM Dictation Location: [place] [address] Electronically authenticated by: [id number] Y Date: 09/26/2024 10:13 Dictated By: Gina Boyd M.D. Signed By: 09/26/24 1016 DD/ 1013 TD/TT: Motorized Squad Sergeant: [facility] Radiology Study observation (narrative) [facility] US OB INCOMPLETE ANATOMYOrde red By: Radiologist Radiology on 09-26-2024 [facility] Work Phone: US OB 14+ WEEKS ANATOMY [...] II, MD, PHD at 30-Aug-2024 11:32:36 PM [facility] Normal Not Available Comment on above: Order Comment: US OB ANATOMY SINGLE W US OB CERVICAL LENGTH Estimated Date of Delivery: 01/10/25 Gestational Age as of 08/05/2024: 17w3d Urinalysis macro (dipstick) panel (U)on 08-29-2024 Bilirubin, UA Negative Negative - 4(70) +++ mg/dL [facility] Blood, UA Negative Negative - 50 Ralf/mcL [facility] Clarity, UA Clear [facility] Color, UA Yellow [facility] Glucose, UA Negative Negative - 2000(110) ++++ mg/dL [facility] Interpretation and review of laboratory results Normal [facility] Ketones, UA Negative Negative - 160(16) ++++ mg/dL [facility] Leukocytes, UA Negative Negative - 500+++ Joce/mcL [facility] Nitrite, UA Negative Negative - Positive [facility] pH, UA 7 5 - 9 [facility] Protein, UA Negative Negative - 2000(20) ++++ mg/dL [facility] Spec Grav, UA 1.01 1 - 1.03 [facility] Urobilinogen, UA 0.2 0.2 - 12 mg/dL [facility] TBH DRUG SCREEN RAPID (URINE )on 08-08-2024 AMPHETAMINE SCREEN URINE Negative NEGATIVE [facility] BARBITURATES SCREEN URINE Negative NEGATIVE [facility] BENZODIAZEPINES SCREEN URINE Negative NEGATIVE [facility] BUPRENORPHINE SCREEN URINE Negative NEGATIVE [facility] Comment on above: DRUG CLASS TEST SYST [...] 300 ng/mL CANNABINOID SCREEN URINE Negative NEGATIVE [facility] COCAINE SCREEN URINE Negative NEGATIVE [facility] METHADONE SCREEN URINE Negative NEGATIVE [facility] METHAMPHETAMINES SCREEN URINE Negative NEGATIVE [facility] OPIATE SCREEN URINE Negative NEGATIVE [facility] OXYCODONE SCREEN URINE Negative NEGATIVE [facility] PHENCYCLIDINE SCREEN URINE Negative NEGATIVE [facility] TRICYCLIC ANTIDEPRESSANT URINE Negative NEGATIVE [facility] CLINISYNC [facility] ALL CBC WITH AUTO DIFFon BASOPHILS ABSOLUTE AUTO 0 [facility] Basophils/100 WBC (Bld) 0.5 % 0.2 - 2.0 % [facility] Eosinophils/100 WBC (Bld) 2 % 0.9 - 7.0 % [facility] Erythrocyte distribution width (RBC) [Ratio] 13.8 % 11.0 - 15.0 % [facility] Hematocrit (Bld) [Volume fraction] 35.4 % Low 36.0 - 48.0 % [facility] Hemoglobin (Bld) [Mass/Vol] 12.3 g/dL 12.0 - 16.0 g/dL [facility] IMMATURE GRANULOCYTES ABS AUTO 0.03 [facility] Immature granulocytes/100 WBC (Bld) 0.4 % 0.0 - 0.5 % [facility] Interpretation and review of laboratory results Abnormal [facility] LYMPHOCYTES ABSOLUTE AUTO 1.3 [facility] Lymphocytes/100 WBC (Bld) 15.5 % Low 20.5 - 60.0 % [facility] MCH (RBC) [Entitic mass] 31.6 pg 26.7 - 34.[address] [facility] MCHC (RBC) [Mass/Vol] 34.7 g/dL 29.9 - 35.2 g/dL [facility] MCV (RBC) [Entitic vol] 91 fL 81.0 - 99.[address] [facility] MONOCYTES ABSOLUTE AUTO 0.5 [facility] Monocytes/100 WBC (Bld) 5.9 % 1.7 - 12.0 % [facility] NEUTROPHILS ABSOLUTE AUTO 6.1 [facility] Neutrophils/100 WBC (Bld) 75.7 % High 43.0 - 75.0 % [facility] Platelet mean volume (Bld) [Entitic vol] 9.5 fL 9.5 - 13.[address] [facility] TBH EO # 0.2 [facility] TBH PLT 307 [facility] TB RBC 3.[address] [facility] TB WBC 8.1 [facility] CLINISYNC [facility] US OB LIMITED 1+ FETUSESon 0 08-05-2024 [...] II, MD, PHD at 07-Aug-2024 08:22:24 PM [facility] Normal Not Available Comment on above: [...] Immunizations Vaccine Date Status Comments SARS-CoV-2 (COVID-19) mRNAMUL.ORD![id number] 03/10/2022 Recorded SARS-CoV-2 (COVID-19) mRNA BNT-162b2 vax 09/07/2020 Recorded 2023-12-25: TPVAL SARS-CoV-2 (COVID-19) mRNA BNT-162b2 vax 08/17/2020 Recorded 2023-12-25: TPVAL Normal [facility] Comment on above: Result Comment: Elec tronically Signed By: DEJAH ARDON, [place] R\.br\Date and Time Signed: 04/11/24 16:18 EST Ambulatory Visit Summaryon 1 Ambulatory Visit Summary Ambulatory Visit Summary DONALD ADAME :2000 Visit Date:12/31/2023 Ambulatory Visit Instructions [...] for choosing us for your care. Normal [facility] QUANTIFERON TB GOLD PLUSon 0 07-17-2022 QuantiFERON Criteria Comment Normal [facility] Comment on above: Result Comment: Yon [...] test. Performed By: #### Q NTTB #### [facility] [address] [place] [address] Dr. Elie Milan QuantiFERON Incubation Incubation performed. Normal [facility] Comment on above: Performed By: #### Q NTTB #### [facility] [address] [place] [address] Dr. Elie Milan QuantiFERON Mitogen Value >10.00 Normal [facility] Comment on above: Performed By: #### Q NTTB #### [facility] [address] [place] [address] Dr. Elie Milan QuantiFERON Nil Value 0.05 IU/mL Normal [facility] Comment on above: Performed By: #### Q NTTB #### [facility] [address] [place] [address] Dr. Elie Milan QuantiFERON TB1 Ag Value 0.06 IU/mL Normal [facility] Comment on above: Performed By: #### Q NTTB #### [facility] [address] [place] [address] Dr. Elie Milan QuantiFERON TB2 Ag Value 0.07 IU/mL Normal [facility] Comment on above: Performed By: #### Q NTTB #### [facility] [address] [place] [address] Dr. Elie Milan QuantiFERON-TB Gold Plus Negative Normal Negative [facility] Comment on above: Result Comment: No r esponse to M tuberculosis antigens detected. Infection with M tuberculosis is unlikely, but high risk individuals should be considered for additional testing (ATS/IDSA/CDC Clinical Practice Guidelines, 2017). The reference range is an Antigen minus Nil result of <0.35 IU/mL. Chemiluminescence immunoassay methodology Performed By: #### Q NTTB #### [facility] [address] [place] [address] Dr. Elie Milan HEPATITIS B SURFACE ANTIBODY , QUANTon 07-16-2022 Hepatitis B Surf AB Quant <3.1 Critically low Immunity>9.9 [facility] Comment on above: Result Comment: Stat us of Immunity Anti-HBs Level Inconsistent with Immunity 0.0 - 9.9 Consistent with Immunity >9.9 Performed By: #### H EPBSRF #### [facility] [address] [place] [address] Dr. Elie Milan MMR IMMUNITYon 07-16-2022 Mumps Abs, IgG 261.0 AU/mL Normal Immune >10.9 [facility] Comment on above: Result Comment: Nega tive <9.0 Equivocal 9.0 - 10.9 Positive >10.9 A positive result generally indicates past exposure to Mumps virus or previous vaccination. Performed By: #### M MRIMMU #### [facility] [address] [place] [address] Dr. Elie Milan Rubella Antibodies, IgG 3.97 index Normal Immune >0.99 [facility] Comment on above: Result Comment: Non- immune <0.90 Equivocal 0.90 - 0.99 Immune >0.99 Performed By: #### M MRIMMU #### [facility] [address] [place] [address] Dr. Elie Milan Rubeola Ab, IgG >300.0 Normal Immune >16.4 [facility] Comment on above: Result Comment: Nega tive <13.5 Equivocal 13.5 - 16.4 Positive >16.4 Presence of antibodies to Rubeola is presumptive evidence of immunity except when acute infection is suspected. Performed By: #### M MRIMMU #### [facility] [address] [place] [address] Dr. Elie Milan VARICELLA IGG ABon 3 Varicella Zoster IgG 1549 index Normal Immune >[address] [facility] Comment on above: Result Comment: Nega tive <135 Equivocal 135 - 165 Positive >165 A positive result generally indicates exposure to the pathogen or administration of specific immunoglobulins, but it is not indication of active infection or stage of disease. Performed By: #### V BRANDT #### [facility] [address] [place] [address] Dr. Elie Milan US PELVIS AND TRANSVAGon [...] NIKO FOREMAN Date: 2022-02-04 20:[address] [facility] HCG-BETA SUBUNIT QUANTon hCG,Beta Subunit,Qnt,Serum <[address] [facility] Comment on above: Result Comment: Fema le (Non-) 0 - 5 (Postmenopausal) 0 - 8 . Female () Weeks of Gestation 3 6 - 71 4 10 - 750 5 656 - 8648 6 478 - 11286 7 5970 -814408 8 16358 -682082 9 44826 -092920 10 56538 -067827 12 72718 -753742 14 80022 - 15834 15 00024 - 68706 16 4769 - 23122 17 0592 - 43752 18 3492 - 53987 Tanesha ECLIA methodology Performed By: #### H CGSUB #### [facility] [address] [place] [address] Dr. Elie Milan CBC AUTO DIFFon 10-23-2021 BASO # 0.1 103/ul Normal 0.0-0.1 [facility] Comment on above: Performed By: #### C BC #### [facility] [address] [place] [address] Dr. Elie Milan Basophils/100 WBC (Bld) 1.1 % Normal 0.2-2.0 [facility] Comment on above: Performed By: #### C BC #### [facility] [address] [place] [address] Dr. Elie Milan EO # 0.3 103/ul Normal 0.0-0.[address] [facility] Comment on above: Performed By: #### C BC #### [facility] [address] [place] [address] Dr. Elie Milan Eosinophils/100 WBC (Bld) 4.6 % Normal 0.9-7.[address] [facility] Comment on above: Performed By: #### C BC #### [facility] [address] [place] [address] Dr. Elie Milan Erythrocyte distribution width (RBC) [Ratio] 11.9 % Normal 11.0-15.0 [facility] Comment on above: Performed By: #### C BC #### [facility] [address] [place] [address] Dr. Elie Milan Hematocrit (Bld) [Volume fraction] 41.0 % Normal 36.0-48.0 [facility] Comment on above: Performed By: #### C BC #### [facility] [address] [place] [address] Dr. Elie Milan Hemoglobin (Bld) [Mass/Vol] 14.0 g/dL Normal 12.0-16.0 [facility] Comment on above: Performed By: #### C BC #### [facility] [address] [place] [address] Dr. Elie Milan IG # 0.02 10e3/ul Normal 0.00-0.[address] [facility] Comment on above: Performed By: #### C BC #### [facility] [address] [place] [address] Dr. Elie Milan IG % 0.3 % Normal 0.0-0.[address] [facility] Comment on above: Performed By: #### C BC #### [facility] [address] [place] [address] Dr. Elie Milan LYMPH # 1.3 103/ul Normal 1.2-3.[address] [facility] Comment on above: Performed By: #### C BC #### [facility] [address] [place] [address] Dr. Elie Milan Lymphocytes/100 WBC (Bld) 17.9 % Critically low 20.5-60.[address] [facility] Comment on above: Performed By: #### C BC #### [facility] [address] [place] [address] Dr. Elie Milan MANUAL DIFF REQ NO Normal [facility] Comment on above: Performed By: #### C BC #### [facility] [address] [place] [address] Dr. Elie Milan MCH (RBC) [Entitic mass] 30.9 pg Normal 26.7-34.[address] [facility] Comment on above: Performed By: #### C BC #### [facility] [address] [place] [address] Dr. Elie Milan MCHC (RBC) [Mass/Vol] 34.1 g/dL Normal 29.9-35.[address] [facility] Comment on above: Performed By: #### C BC #### [facility] [address] [place] [address] Dr. Elie Milan MCV (RBC) [Entitic vol] 90.5 fL Normal 81.0-99.[address] [facility] Comment on above: Performed By: #### C BC #### [facility] [address] [place] [address] Dr. Elie Milan MONO # 0.5 103/ul Normal 0.3-0.[address] [facility] Comment on above: Performed By: #### C BC #### [facility] [address] [place] [address] Dr. Elie Milan Monocytes/100 WBC (Bld) 7.3 % Normal 1.7-12.[address] [facility] Comment on above: Performed By: #### C BC #### [facility] [address] [place] [address] Dr. Elie Milan NEUT # 4.8 103/ul Normal 1.4-6.[address] [facility] Comment on above: Performed By: #### C BC #### [facility] [address] [place] [address] Dr. Elie Milan Neutrophils/100 WBC (Bld) 68.8 % Normal 43.0-75.0 [facility] Comment on above: Performed By: #### C BC #### [facility] [address] [place] [address] Dr. Elie Milan Platelet mean volume (Bld) [Entitic vol] 9.9 fL Normal 9.5-13.5 [facility] Comment on above: Performed By: #### C BC #### [facility] [address] [place] [address] Dr. Elie Milan PLT 223 103/ul Normal 150-[address] [facility] Comment on above: Performed By: #### C BC #### [facility] [address] [place] [address] Dr. Elie Milan RBC 4.53 106/ul Normal 4.20-5.40 [facility] Comment on above: Performed By: #### C BC #### [facility] [address] [place] [address] Dr. Elie Milan WBC 7.0 103/ul Normal 4.0-11.[address] [facility] Comment on above: Performed By: #### C BC #### [facility] [address] [place] [address] Dr. Elie Milan HCG-BETA SUBUNIT QUANTon hCG,Beta Subunit,Qnt,Serum <[address] [facility] Comment on above: Result Comment: Fema le (Non-) 0 - 5 (Postmenopausal) 0 - 8 . Female () Weeks of Gestation 3 6 - 71 4 10 - 750 5 745 - 2672 6 158 - 03614 7 4140 -780665 8 22515 -238802 9 04061 -380186 10 01755 -028635 12 87136 -282802 14 83678 - 46023 15 22392 - 61241 16 7952 - 43204 17 6637 - 02784 18 8311 - 52732 Tanesha ECLIA methodology Performed By: #### H CGSUB #### [facility] [address] [place] [address] Dr. Elie Milan US PELVIS TRANSVAGon 022 [...] by: NIKO FOREMAN Date: 2021-10-08 16:31 Normal [facility] CNOVSPon 05-17-2019 CNOVSP Visit (SP) Office ([facility]) DONALD ADAME ([id number]) 2000 F Date Time Provider Department 05/17/19 10:45 AM IVÁN MORGAN) IFTIKHAR During your visit today, we recorded the following information about you: Temperature Pulse Respiration Blood pressure 98.2 degrees 86/minute 18/minute 121/71 Weight Height 56.8 kg 1.632 m Iván Morgan MD 05/17/2019 2:07 PM Signed PATIENT NAME: Donald Adame CLINIC NO.: [id number] ATTENDING PHYSICIAN: Iván Morgan MD DATE OF SERVICE: May 17, 2019 This document has been created with the use of voice recognition technology. It may contain inaccuracies, misspellings, inaccurate syntax or inappropriate word context that escaped review. Dear Dr. Iván Morgan MD [address] [place] [id number] here is an update on a follow up visit on female Donald Adame at the clinic 05/17/2019 Diagnosis: ? Protein S def Treatment History: HPI: Donald Adame is a 19 year old year [...] BASOP, ABSBASO PATH: Imaging: Assessment and Plan: Donald Adame is a 19 year old year old female here for follow up. Patient does not have Protein S def. NO further work up at this time. Follow up with urology Thank you for the kind referral. If there are any questions and or concerns please do not hesitate to contact me at [phone]. Iván Morgan MD Hematology/Medical Oncology [facility] CC: Shaw Jorgensen Referring Provider: IVÁN MORGAN) [[id number]] Allergies As of Date: 05/17/2019 (No Known Allergies) Date Reviewed: 05/17/2019 Reviewed by: Iván Morel) Cathy - Fully Assessed Reason for [...] Of Date: 05/17/2019 (None) Encounter Status:Closed by IVÁN MORGAN MD on 05/17/19 Normal [facility] PROGRESSon 05-17-2019 PROGRESS HNO ID: [id number] Author: Iván Morel) Cathy Service: ? Author Type: Physician Type: Progress Notes Filed: 05/17/2019 2:07 PM Note Text: PATIENT NAME: Donald Adame CLINIC NO.: [id number] ATTENDING PHYSICIAN: Iván Morgan MD DATE OF SERVICE: May 17, 2019 This document has been created with the use of voice recognition technology. It may contain inaccuracies, misspellings, inaccurate syntax or inappropriate word context that escaped review. Dear Dr. Iván Morgan MD [address] [place] [address] here is an update on a follow up visit on female Donald Adame at the clinic 05/17/2019 Diagnosis: ? Protein S def Treatment History: HPI: Donald Adame is a 19 year old year [...] BASOP, ABSBASO PATH: Imaging: Assessment and Plan: Donald Adame is a 19 year old year old female here for follow up. Patient does not have Protein S def. NO further work up at this time. Follow up with urology Thank you for the kind referral. If there are any questions and or concerns please do not hesitate to contact me at [phone]. Iván Morgan MD Hematology/Medical Oncology [facility] CC: Shaw Jorgensen Normal [facility] APTTon 05-10-2019 aPTT Coag (Bld) [Time] 27.1 s Normal 23.0-32.4 [facility] Comment on above: Result Comment: Unfr actionated [...] laboratory APTT reagent in use throughout the [facility]. Performed By: #### P RSCLT, PTT, PT, PRCFUN #### [facility] [address], [place] [id number] Protein C Functionalon 05-10 Protein [Mass/Vol] 89 % Normal 76-147 [facility] Comment on above: Performed By: #### P RSCLT, PTT, PT, PRCFUN #### [facility] [address] [place], [place] [id number] Protein S Clottableon 2019 Protein S Clottable 58 % Low 59-131 [facility] Comment on above: Result Comment: [...] P RSCLT, PTT, PT, PRCFUN #### [facility] [address], [place] [address] Protimeon 05-10-2019 PT Coag (PPP) [Time] 10.2 s Normal 9.7-13.0 [facility] Comment on above: Performed By: #### P RSCLT, PTT, PT, PRCFUN #### [facility] [address] [place], [place] [address] PT Coag (PPP) [Time] 0.9 s Normal 0.9-1.3 [facility] Comment on above: Result Comment: Maria D min K Antagonist (VKA) Therapeutic Range: INR 2 to 3 (Target INR of 2.5) Note: For patients treated with VKA drugs, such as warfarin, the [employer] 2012 Guideline recommends [...] Chest 2012, 141:7S-47S Deo RA, et al. JACC 2017, 70: 252-289 Performed By: #### P RSCLT, PTT, PT, PRCFUN #### [facility] [address], [place] [address] CNOVSPon 04-12-2019 CNOVSP Visit (SP) Office ([facility]) DONALD ADAME ([id number]) 2000 F Date Time Provider Department 04/12/19 4:15 PM IVÁN MORGAN) IFTIKHAR During your visit today, we recorded the following information about you: Temperature Pulse Respiration Blood pressure 97.8 degrees 90/minute 18/minute 119/74 Weight Height 56.7 kg 1.632 m Iván Morgan MD 04/12/2019 4:48 PM Signed PATIENT NAME: Donald Adame CLINIC NO.: [id number] ATTENDING PHYSICIAN: Iván Morgan MD DATE OF SERVICE: April 12, 2019 This document has been created with the use of voice recognition technology. It may contain inaccuracies, misspellings, inaccurate syntax or inappropriate word context that escaped review. Dear Dr. Aden Welsh, DO thank you for referring Miss Donald Adame for an opinion regarding diagnosis of protein S deficiency. CHIEF COMPLAINT: I have abnormal blood levels HPI: Donald Adame is a 19 year old year [...] BASOP, ABSBASO PATH: IMAGING: ASSESSMENT AND PLAN: Donald Adame is a 19 year old year [...] at this point is required. Dear Dr. Aden Welsh, , thank you for allowing me to participate in Miss Donald Adame care, if there are any questions or concerns please do not hesitate to contact me at the number below. Iván Morgan M.D. 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] Order(s):ACTIVATED PTT [SQPTT] Order #: [id number] FUTURE PROTHROMBIN TIME/PT [SQPT] Order #: [id number] FUTURE TUBES - DRAW EXTRA [SQXTUBE] Order #: [id number] FUTURE PROTEIN C FUNCT [SQPRCFUN] Order #: [id number] FUTURE PROTEIN S CLOTTABLE [SQPRSCLT] Order #: [id number] FUTURE Follow-up and Disposition History Recorded Prescriptions as of 04/12/2019 Sig: NORGESTIMATE 0.25 MG-ETHINYL * Take 1 tablet by mouth once d* Problem List As Of Date: 04/12/2019 (None) Encounter Status:Closed by IVÁN MORGAN MD on 04/12/19 Normal [facility] PROGRESSon 04-12-2019 PROGRESS HNO ID: [id number] Author: Iván Morel) Cathy Service: ? Author Type: Physician Type: Progress Notes Filed: 04/12/2019 4:48 PM Note Text: PATIENT NAME: Donald Adame [facility] NO.: [id number] ATTENDING PHYSICIAN: Iván Morgan MD DATE OF SERVICE: April 12, 2019 This document has been created with the use of voice recognition technology. It may contain inaccuracies, misspellings, inaccurate syntax or inappropriate word context that escaped review. Dear Dr. Aden Welsh, DO thank you for referring Miss Donald Adame for an opinion regarding diagnosis of protein S deficiency. CHIEF COMPLAINT: I have abnormal blood levels HPI: Donald Adame is a 19 year old year [...] BASOP, ABSBASO PATH: IMAGING: ASSESSMENT AND PLAN: Donald Adame is a 19 year old year [...] at this point is required. Dear Dr. Aden Welsh, DO, thank you for allowing me to participate in Miss Donald Adame care, if there are any questions or concerns please do not hesitate to contact me at the number below. Iván Morgan M.D. Hematology/Medical Oncology [facility] [phone] CC: Normal [facility] Vital Signs Date Time Vital Sign Value Performing Clinician Facility 12-13-2024 10:51-0400 Body mass index (BMI) [Ratio] 29.31 kg/m2 Aden Anitha DO Work Phone: [facility] 12-13-2024 10:51-0400 Body weight 79.89 kg Aden Anitha DO Work Phone: [facility] 12-13-2024 10:51-0400 Diastolic blood pressure 80 mm[Hg] Aden Anitha DO Work Phone: [facility] 12-13-2024 10:51-0400 Systolic blood pressure 120 mm[Hg] Aden Anitha DO Work Phone: [facility] 12-01-2024 11:04-0400 Body mass index (BMI) [Ratio] 28.79 kg/m2 Rachel Garcia GAME DESIGN INSTRUCTOR Work Phone: [facility] 12-01-2024 11:04-0400 Body weight 78.47 kg Rachel Radha GAME DESIGN INSTRUCTOR Work Phone: [facility] 12-01-2024 11:04-0400 Diastolic blood pressure 68 mm[Hg] Rachel Radha GAME DESIGN INSTRUCTOR Work Phone: [facility] 12-01-2024 11:04-0400 Systolic blood pressure 114 mm[Hg] Rachel Radha GAME DESIGN INSTRUCTOR Work Phone: [facility] 11-17-2024 11:29-0400 Body mass index (BMI) [Ratio] 28.42 kg/m2 Aden Anitha DO Work Phone: [facility] 11-17-2024 11:29-0400 Body weight 77.47 kg Aden Anitha DO Work Phone: [facility] 11-17-2024 11:29-0400 Diastolic blood pressure 76 mm[Hg] Aden Anitha DO Work Phone: [facility] 11-17-2024 11:29-0400 Systolic blood pressure 118 mm[Hg] Aden Anitha DO Work Phone: [facility] 11-02-2024 10:19-0400 Body mass index (BMI) [Ratio] 28.29 kg/m2 Tran Jason PA Work Phone: [facility] 11-02-2024 10:19-0400 Body weight 77.11 kg Tran Jason PA Work Phone: [facility] 11-02-2024 10:19-0400 Diastolic blood pressure 70 mm[Hg] Tran [place] PA Work Phone: [facility] 11-02-2024 10:19-0400 Systolic blood pressure 112 mm[Hg] Tran Jasno PA Work Phone: [facility] 10-20-2024 10:44-0400 Body mass index (BMI) [Ratio] 27.92 kg/m2 Aden Anitha DO Work Phone: [facility] 10-20-2024 10:44-0400 Body weight 76.11 kg Aden Anitha DO Work Phone: [facility] 10-20-2024 10:44-0400 Diastolic blood pressure 80 mm[Hg] Aden Anitha DO Work Phone: [facility] 10-20-2024 10:44-0400 Systolic blood pressure 120 mm[Hg] Aden Anitha DO Work Phone: [facility] 09-27-2024 11:12-0400 Body mass index (BMI) [Ratio] 27.22 kg/m2 Tran Jason PA Work Phone: [facility] 09-27-2024 11:12-0400 Body weight 74.21 kg Tran Jason PA Work Phone: [facility] 09-27-2024 11:12-0400 Diastolic blood pressure 82 mm[Hg] Tran Jason PA Work Phone: [facility] 09-27-2024 11:12-0400 Systolic blood pressure 116 mm[Hg] Tran Jason PA Work Phone: [facility] 08-29-2024 14:46-0400 Body mass index (BMI) [Ratio] 26.21 kg/m2 Aden Anitha DO Work Phone: [facility] 08-29-2024 14:46-0400 Body weight 71.44 kg Aden Anitha DO Work Phone: [facility] 08-29-2024 14:46-0400 Diastolic blood pressure 72 mm[Hg] Aden Anitha DO Work Phone: [facility] 08-29-2024 14:46-0400 Systolic blood pressure 114 mm[Hg] Aden Anitha DO Work Phone: [facility] 04-11-2024 13:50-0500 Blood Pressure Location Israel NILL [facility] 04-11-2024 13:50-0500 Diastolic blood pressure 74 mm[Hg] Israel NILL [facility] 04-11-2024 13:50-0500 Heart rate 87 /min Israel NILL [facility] 04-11-2024 13:50-0500 Respiratory rate 16 /min Israel NILL [facility] 04-11-2024 13:50-0500 Systolic blood pressure 106 mm[Hg] Israel NILL [facility] 12-31-2023 08:48-0400 Blood Pressure Location Israel NILL [facility] 12-31-2023 08:48-0400 Diastolic blood pressure 87 mm[Hg] Israel NILL [facility] 12-31-2023 08:48-0400 Heart rate 81 /min Israel NILL [facility] 12-31-2023 08:48-0400 Respiratory rate 16 /min Israel NILL [facility] [place] 12-31-2023 08:48-0400 Systolic blood pressure 120 mm[Hg] Israel POND [facility] Encounters Encounter Date Encounter Type Care Provider Facility Start: 12-13-2024 End: 12-13-2024 Bamboo flowsheet Aden Anitha DO Work Phone: [facility] Start: 12-13-2024 End: 12-13-2024 Bamboo flowsheet Aden Anitha DO Work Phone: [facility] Start: 12-13-2024 End: 12-13-2024 Office outpatient visit 15 minutes Aden Anitha DO Work Phone: [facility] Comment on above: 36 weeks gestation o f ([facility]); Third trimester ([facility]) Start: 12-01-2024 End: 12-01-2024 Bamboo flowsheet Rachel Garcia GAME DESIGN INSTRUCTOR Work Phone: [facility] Start: 12-01-2024 End: 12-01-2024 Bamboo flowsheet Rachel Radha GAME DESIGN INSTRUCTOR Work Phone: [facility] Start: 12-01-2024 End: 12-01-2024 ambulatory RACHEL GARCIA Not Available Start: 12-01-2024 End: 12-01-2024 Office outpatient visit 15 minutes Rachel Garcia GAME DESIGN INSTRUCTOR Work Phone: [facility] Comment on above: Third trimester preg elvia ([facility]); 34 weeks gestation of ([facility]) Start: 11-17-2024 End: 11-17-2024 Bamboo flowsheet Aden Anitha DO Work Phone: [facility] Start: 11-17-2024 End: 08-21-2025 Bamboo flowsheet Aden Anitha DO Work Phone: [facility] Start: 11-17-2024 End: 11-17-2024 ambulatory ADEN ANITHA Not Available Start: 11-17-2024 End: 11-17-2024 Office outpatient visit 15 minutes Aden Anitha DO Work Phone: [facility] Comment on above: 32 weeks gestation o f ([facility]); Third trimester ([facility]) Start: 11-02-2024 End: 11-02-2024 Office outpatient visit 15 minutes Tran WESTFALL Work Phone: [facility] Comment on above: Third trimester preg elvia ([facility]); 30 weeks gestation of ([facility]) Start: 11-02-2024 End: 11-02-2024 ambulatory TRAN PEREZ Not Available Start: 10-20-2024 End: 10-20-2024 Clinisync Result Encounter Tran WESTFALL Work Phone: [facility] Unsolicited Start: 10-20-2024 End: 10-20-2024 Clinisync Result Encounter Tran WESTFALL Work Phone: [facility]solic[facility] Start: 10-20-2024 End: 10-20-2024 Office outpatient visit 15 minutes Aden Anitha DO Work Phone: [facility] Comment on above: 28 weeks gestation o f ([facility]); Third trimester ([facility]); Chlamydia trachomatis infection Start: 10-20-2024 End: 10-20-2024 ambulatory ADEN ANITHA Not Available Start: 09-27-2024 End: 10-03-2024 Clinisync Result Encounter Tran WESTFALL Work Phone: [facility] Unsolic[facility] Start: 09-27-2024 End: 09-28-2024 External Result Encounter Tran WESTFALL Work Phone: [facility]solic[facility] Start: 09-27-2024 End: 10-03-2024 External Result Encounter Tran WESTFALL Work Phone: [facility] Unsolicited Start: 09-27-2024 End: 09-27-2024 ambulatory TRAN PEREZ Not Available Start: 09-27-2024 End: 09-27-2024 Patient encounter procedure Tran WESTFALL Work Phone: [facility] Start: 09-27-2024 End: 09-27-2024 Periodic preventive med est patient 18-39 yrs Tran WESTFALL Work Phone: [facility] Comment on above: Second trimester pre gnancy ([facility]); 25 weeks gestation of ([facility]); STD exposure; Well woman exam with routine gynecological exam; Diabetes mellitus screening Start: 09-26-2024 End: 09-26-2024 Clinisync Result Encounter Aden Anitha DO Work Phone: [facility]solicited Start: 09-26-2024 End: 09-26-2024 Clinisync Result Encounter Aden Anitha DO Work Phone: [facility]solicited Start: 08-29-2024 End: 08-29-2024 Office outpatient visit 15 minutes Aden Anitha DO Work Phone: [facility] Comment on above: Second trimester pre gnancy; 20 weeks gestation of Start: 08-29-2024 End: 08-29-2024 ambulatory ADEN ANITHA Not Available Start: 08-29-2024 End: 08-29-2024 ambulatory ADEN ANITHA Not Available Start: 08-08-2024 End: 08-08-2024 Clinisync Result Encounter Aden Anitha DO Work Phone: [facility]solicited Start: 08-08-2024 End: 08-08-2024 Clinisync Result Encounter Aden Anitha DO Work Phone: [facility]solic[facility] Start: 08-05-2024 End: 08-05-2024 Clinisync Result Encounter Aden Anitha DO Work Phone: [facility]solic[facility] Start: 08-05-2024 End: 08-05-2024 Clinisync Result Encounter Aden Anitha DO Work Phone: [facility]solic[facility] Start: 08-05-2024 End: 08-05-2024 Office outpatient visit 5 minutes [facility] Anitha Nurse [facility] Comment on above: GA: 17w3d Start: 08-05-2024 End: 08-05-2024 ambulatory ADEN MARTINESO Not Available Start: 07-24-2024 ambulatory Israel MALLORYL Facility:[facility] Start: 04-11-2024 End: 04-11-2024 ambulatory Israel Gonzalez NILL Facility: [facility] Start: 04-11-2024 End: 04-11-2024 Patient encounter procedure Israel MALLORYL [facility] Start: 03-24-2024 ambulatory Israel POND Facility:[facility] Start: 02-01-2024 End: 02-01-2024 Patient encounter procedure Ki Lock DO Work Phone: [facility] Comment on above: Encounter for drug s creening Start: 02-01-2024 End: 02-01-2024 ambulatory ADEN MARTINESO Not Available Start: 01-14-2024 End: 01-14-2024 ambulatory Anatoly PARK Facility:[facility] Start: 12-31-2023 End: 12-31-2023 ambulatory Shaw Jorgensen Facility:[facility] Start: 12-31-2023 End: 12-31-2023 Patient encounter procedure Israel POND [facility] Start: 12-25-2023 ambulatory Israel POND Facility:[facility] Start: 05-05-2023 End: 05-05-2023 Phys/qhp telephone evaluation 5-10 min Aden Sortozio DO Work Phone: [facility] Comment on above: Encounter to discuss test results Start: 07-15-2022 End: 07-16-2022 ambulatory RACHEL GARCIA Facility:[facility] Start: 02-04-2022 End: 02-05-[address] ADEN WELSH . Facility:[facility] Start: 10-29-2021 Encounter for preprocedural laboratory examination DR ADEN WELSH . [facility] Start: 10-25-2021 End: 10-25-[address] ADEN WELSH . Facility:[facility] Start: 10-23-2021 End: 10-24-[address] ADEN WELSH . Facility:[facility] Start: 10-23-2021 End: 10-24-2021 Encounter for preprocedural laboratory examination DR ADEN WELSH . Facility:[facility] Start: 10-22-2021 Encounter for other preprocedural examination DR ADEN WELSH . [facility] Start: 10-17-2021 End: 10-18-[address] ADEN WELSH . Facility:[facility] Start: 10-17-2021 End: 10-18-2021 Encounter for other preprocedural examination DR ADEN WELSH . Facility:[facility] Start: 10-09-2021 End: 10-10-[address] ADEN WELSH . Facility:[facility] Start: 10-08-2021 End: 10-09-[address] ADEN WELSH . Facility: Procedures Date Procedure Procedure Detail Performing Clinician Start: 12-13-2024 Urnls dip stick/tabl et rgnt non-auto w/o micrscp Aden Anitha DO Work Phone: Start: 11-17-2024 Urnls dip stick/tabl et rgnt non-auto w/o micrscp Aden Anitha DO Work Phone: Start: 11-02-2024 Urnls dip stick/tabl et rgnt non-auto w/o micrscp Tran WESTFALL Work Phone: Start: 10-20-2024 ALL CBC WITH AUTO DIFF Tran WESTFALL Work Phone: Start: 09-27-2024 RECURRENT VAGINITIS (HTRX) Tran WESTFALL Work Phone: Start: 09-27-2024 Urnls dip stick/tabl et rgnt non-auto w/o micrscp Tran WESTFALL Work Phone: Start: 09-27-2024 IGP,APTIMA HPV,AGE GDLN Tran WESTFALL Work Phone: Start: 09-26-2024 US OB INCOMPLETE ANATOMY Aden Anitha DO Work Phone: Start: 08-29-2024 Urnls dip stick/tabl et rgnt non-auto w/o micrscp Aden Anitha DO Work Phone: Start: 08-08-2024 [facility] DRUG SCREEN RAPI D (URINE) Aden Anitha DO Work Phone: Start: 08-05-2024 ALL CBC WITH AUTO DIFF Aden Anitha DO Work Phone: Laparoscopy Israel MALLORYCamelia Removal of foreign b jasmyn from foot Israel NILCamelia Tonsillectomy and adenoidectomy Israel NILCamelia Plan of Treatment Date Care Activity Detail Author Start: 12-21-2024 End: 12-21-2024 Patient encounter procedure 12/21/2024 11:10 AM EDT Routine [facility] [address] [place] [address] Aden Welsh, DO [address] [place] [address] [facility] Start: 12-13-2024 End: 12-13-2025 CULTURE, GROUP B STREP WITH SUSCEPTIBLITY CULTURE, GROUP B STREP WITH SUSCEPTIBLITY Lab Routine Third trimester ([facility]) Expected: 12/13/2024, Expires: 12/13/2025 [facility] Work Phone: Comment on above: Expected: 12/13/2024 , Expires: 12/13/2025 Start: 12-13-2024 End: 12-13-2024 Patient encounter procedure 12/13/2024 10:00 AM EDT Routine [facility] [address] [place] [phone] Aden Welsh, DO [address] [place] [address] [facility] Start: 12-01-2024 End: 12-01-2024 Patient encounter procedure 12/01/2024 10:40 AM EDT Routine [facility] [address] [place] [phone] Rachel Garcia, GAME DESIGN INSTRUCTOR [address] [place] [phone] [facility] Start: 11-28-2024 Influenza vaccination [facility] Start: 11-17-2024 End: 11-17-2024 Patient encounter procedure 11/17/2024 11:00 AM EDT Routine [facility] [address] [place] [phone] Aden Welsh, DO [address] [place] [address] [facility] Start: 11-02-2024 End: 11-02-2024 Patient encounter procedure 11/02/2024 10:00 AM EDT Routine [facility] [address] [place] [phone] Tran Perez PA [address] [place] [address] [facility] Start: 11-02-2024 End: 11-02-2024 Professional / ancillary services management 11/02/2024 9:30 AM EDT Ancillary Procedure [facility] [address] [place] [place] [address] [facility] Start: 10-20-2024 End: 02-20-2025 US for US OB follow up transabdominal approach Imaging Routine 28 weeks gestation of ([facility]) Expected: 10/20/2024, Expires: 02/20/2025 [facility] Comment on above: Expected: 10/20/2024 , Expires: 02/20/2025 Start: 10-20-2024 End: 10-20-2024 Patient encounter procedure 10/20/2024 10:50 AM EDT Routine [facility] [address] [place] [place] [phone] Aden Welsh DO [address] [place] [address] [facility] Start: 09-27-2024 End: 09-27-2025 CBC panel - Blood by Automated count CBC Lab Routine Diabetes mellitus screening Expected: 09/27/2024 (Approximate), Expires: 09/27/2025 [facility] Comment on above: Expected: 09/27/2024 (Approximate), Expires: 09/27/2025 Start: 09-27-2024 End: 09-27-2025 Measurement of glucose 1 hour after glucose challenge for glucose tolerance test Glucose tolerance, 1 hour Lab Routine Diabetes mellitus screening Expected: 09/27/2024 (Approximate), Expires: 09/27/2025 [facility] Comment on above: Expected: 09/27/2024 (Approximate), Expires: 09/27/2025 Start: 09-27-2024 End: 09-27-2024 Patient encounter procedure 09/27/2024 10:30 AM EDT Routine [facility] [address] [place] [phone] Tran Perez PA [address] [place] [address] [facility] Start: 08-29-2024 End: 08-29-2024 Patient encounter procedure 08/29/2024 2:30 PM EDT Routine [facility] [address] [place] [address] Aden Welsh, DO [address] [address] [facility] Start: 08-29-2024 End: 08-29-2024 Professional / ancillary services management 08/29/2024 1:00 PM EDT Ancillary Procedure [facility] [address] [place] [address] [facility] Start: 08-05-2024 End: 08-05-2025 ABO/Rh ABO/Rh Lab Routine Missed menses , unspecified gestational age Expected: 08/05/2024 (Approximate), Expires: 08/05/2025 [facility] Comment on above: Expected: 08/05/2024 (Approximate), Expires: 08/05/2025 Start: 08-05-2024 End: 10-05-2024 Alpha fetoprotein, maternal Alpha fetoprotein, maternal Lab Routine , unspecified gestational age Expected: 08/05/2024 (Approximate), Expires: 10/05/2024 [facility] Comment on above: Expected: 08/05/2024 (Approximate), Expires: 10/05/2024 Start: 08-05-2024 End: 08-05-2025 Blood type and Indirect antibody screen panel - Blood Type and screen Lab Routine Missed menses , unspecified gestational age Expected: 08/05/2024 (Approximate), Expires: 08/05/2025 [facility] Work Phone: Comment on [...] for anatomic survey Expected: 08/05/2024, Expires: 11/05/2024 [facility] Comment on above: Expected: 08/05/2024 , Expires: 11/05/2024 Start: 05-19-2024 End: 05-19-2024 Patient encounter procedure 05/19/2024 3:55 PM EST Office Visit [facility] [address] [place] [address] Rafaela Encarnacion, AUTOMATIC LATHE OPERATOR-ENDBAND CUTTER HAND [address] [place] [address] [facility] Start: 12-15-2023 End: 12-15-2023 Patient encounter procedure 12/15/2023 11:00 AM EDT Office Visit [facility] [address] [place] [address] Aden Welsh, DO [address] [place], [place] [address] [facility] Start: 11-29-2023 Influenza vaccination Influenza Vacc ine (#1) [facility] Start: 05-11-2023 End: 05-11-2023 Patient encounter procedure 05/11/2023 4:05 PM EST Office Visit [facility] [address] [place] [phone] Rafaela Encarnacion, AUTOMATIC LATHE OPERATOR-ENDBAND CUTTER HAND [address] [place] [address] [facility] Start: 11-28-2022 Influenza vaccination Influenza Vacc ine (#1) [facility] Bacteria identified in Urine by Culture Urine culture Microbiology Routine Missed menses Ordered: 08/05/2024 [facility] Comment on above: Ordered: 08/05/2024 CBC W Auto Different ial panel - Blood CBC and differential Lab Routine Missed menses , unspecified gestational age Ordered: 08/05/2024 [facility] Comment on above: Ordered: 08/05/2024 CHLAMYDIA TRACHOMATI S (GENITO/STI) CHLAMYDIA TRACHOMATIS (GENITO/STI) Lab Routine STD exposure Ordered: 09/27/2024 [facility] Comment on above: Ordered: 09/27/2024 CHLAMYDIA TRACHOMATI S (GENITO/STI) CHLAMYDIA TRACHOMATIS (GENITO/STI) Lab Routine Chlamydia trachomatis infection Ordered: 10/20/2024 [facility] Comment on above: Ordered: 10/20/2024 Cytology Cervical or vaginal smear or scraping study Pap Smear Pathology and Cytology Routine Well woman exam with routine gynecological exam Ordered: 09/27/2024 [facility] Work Phone: Comment on above: Ordered: 09/27/2024 Hemoglobin A1c/Hemoglobin.total in Blood Hemoglobin A1c Lab Routine Missed menses , unspecified gestational age Ordered: 08/05/2024 [facility] Comment on above: Ordered: 08/05/2024 Hepatitis B virus surface Ag [Presence] in Serum or Plasma by Immunoassay Hepatitis B surface antigen Lab Routine Missed menses , unspecified gestational age Ordered: 08/05/2024 [facility] Comment on above: Ordered: 08/05/2024 Hepatitis C virus Ab [Presence] in Serum or Plasma by Immunoassay Hepatitis C antibody Lab Routine Missed menses , unspecified gestational age Ordered: 08/05/2024 [facility] Comment on above: Ordered: 08/05/2024 HIV-1/HIV-2 antigen/antibody combination immunoassay HIV-1 and HIV-2 antibodies Lab Routine Missed menses , unspecified gestational age Ordered: 08/05/2024 [facility] Comment on above: Ordered: 08/05/2024 Neisseria gonorrhoea e DNA [Presence] in Unspecified specimen by BINU with probe detection Neisseria gonorrhea DNA probe, direct Lab Routine STD exposure Ordered: 09/27/2024 [facility] Comment on above: Ordered: 09/27/2024 Neisseria gonorrhoea e DNA [Presence] in Unspecified specimen by BINU with probe detection Neisseria gonorrhea DNA probe, direct Lab Routine Chlamydia trachomatis infection Ordered: 10/20/2024 [facility] Comment on above: Ordered: 10/20/2024 Reagin Ab [Presence] in Serum by RPR RPR Lab Routine Missed menses , unspecified gestational age Ordered: 08/05/2024 [facility] Comment on above: Ordered: 08/05/2024 Rubella antibody, IgG Rubella an tibody, IgG Lab Routine Missed menses , unspecified gestational age Ordered: 08/05/2024 [facility] Comment on above: Ordered: 08/05/2024 SURESWAB(R) ADVANCED VAGINITIS PLUS, TMA SURESWAB(R) ADVANCED VAGINITIS PLUS, TMA Pathology and Cytology Routine STD exposure Ordered: 09/27/2024 [facility] Comment on above: Ordered: 09/27/2024 SURESWAB(R) ADVANCED VAGINITIS PLUS, TMA SURESWAB(R) ADVANCED VAGINITIS PLUS, TMA Pathology and Cytology Routine Chlamydia trachomatis infection Ordered: 10/20/2024 [facility] Work Phone: Comment on above: Ordered: 10/20/2024 Immunizations Immunization Date [facility]ization [facility] SARS-CoV-2 (COVID-19 ) [id number] Israel [employer] [facility] 01-09-2022 influenza virus vaccine, unspecified formulation Aden Anithalouie ALVES Work Phone: [facility] 09-07-2020 SARS-CoV-2 (COVID-19 ) mRNA BNT-162b2 vax IMT ([employer]) [facility] Comment on above: Result Comment: 2023: [facility]AL 08-17-2020 SARS-CoV-2 (COVID-19 ) mRNA BNT-162b2 vax IMT ([employer]) [facility] Comment on above: Result Comment: 2023: TPVAL Payers Date Payer Category Payer Private Health Insurance [facility] [id number] 2024 Medicaid [id number] 2023 Unknown [id number] 2022 Unknown BCBS BCBS xxxxxx [id number] 2022-Present [phone] [address] [place] [address] [id number] 2022 Unknown [id number] 1999 Unknown [id number] 2.16840.1.268294.3.579.2. 593 1999 Unknown [id number] 2.16840.1.484639.3.579.2. 593 1999 Unknown [id number] 2.16840.1.122983.3.579.2. 593 1999 Unknown [id number] 2.16840.1.050006.3.579.2. 593 1999 Unknown [id number] 2.16840.1.242185.3.579.2. 593 1999 Unknown [id number] 2.16840.1.448802.3.579.2. 593 1999 Unknown [id number] 2.16840.1.514982.3.579.2. 727 1999 Unknown [id number] 2.16840.1.418138.3.579.2. 727 1999 Unknown [id number] 2.16840.1.498197.3.579.2. 1259 1999 Unknown [id number] 2.16.840.1.805796.3.579.2. 9 1999 Unknown [id number] 2.16.840.1.679400.3.579.2. 9 1999 Unknown [id number] 2.16.840.1.475414.3.579.2. 9 1999 Unknown [id number] 2.16.840.1.201196.3.579.2. 9 1999 Unknown [id number] 2.16.840.1.863551.3.579.2. 9 1999 Unknown [id number] 2.16.840.1.831663.3.579.2. 9 1999 Unknown [id number] 2.16.840.1.287998.3.579.2. 9 1999 Unknown [id number] 2.16.840.1.862803.3.579.2. 9 1999 Unknown [id number] 2.16.840.1.588122.3.579.2. 9 1999 Unknown [id number] 2.16.840.1.498153.3.579.2. 1259 1959 Self-pay 1959 Unknown [id number] Unknown [id number] 2.16.840.1.414733.3.579.2. 593 Social History Date Type Detail Facility Start: 09-03-2022 End: 04-11-2024 Tobacco smoking status [facility] Never smoked tobacco [facility] Start: 09-03-2022 Tobacco use and exposure Smokeless tobacco non-user [facility] Start: 04-22-2023 End: 12-13-2024 Alcohol intake Lifetime non-drinker (finding) [facility] Start: 04-22-2023 End: 08-05-2024 History of Social function [facility] Start: 04-22-2023 End: 08-05-2024 Tobacco use panel [facility] Start: 2000 Sex Assigned At Female [facility] Start: 08-27-2022 Gender identity Identifies as female gender (finding) [facility] Start: 08-27-2022 Sexual orientation Heterosexual (finding) [facility] Tobacco smoking status Former sm okeless tobacco user, quit more than 30 days ago [facility] Start: 04-19-2024 [facility] Goals Date Patient Goal Desired Activity /State Personal health goal Functional Status Date Assessment Result Facility 04-11-2024 Functional Status N/A [facility] 12-31-2023 Functional Status N/A [facility] Clinical Notes 10-25-2021 to 12-13-2024 Gina Edouard, POST EXCHANGE MANAGER - 12/13/2024 10:00 AM EDThalia Houser, POST EXCHANGE MANAGER - 12/01/2024 10:40 AM Tabitha Houser, POST EXCHANGE MANAGER - 11/17/2024 11:00 AM Leigh Ann Perez, MALOU - 11/02/2024 10:00 AM EDT Note Date & Type Note Facility 12-13-2024 History of Present illness Narrative Reason for Appointment: Patient ID: Donald Adame is a 24 y.o. female who [...] negaitve TONSILLECTOMY 03/27/2010 WISDOM TOOTH EXTRACTION 01/26/2016 [place] teeth REVIEW OF SYSTEMS Review of Systems: [...] nursing note reviewed. Exam conducted with a sanitarian present. Vitals: Estimated body mass index is 29.31 kg/m as calculated from the following: Height as of 08/03/23: 5' 5 . Weight as of this encounter: 176 lb 1.9 oz. BP: 120/80 No LMP recorded (lmp unknown). Patient is . ASSESSMENT & PLAN ICD-10-CM 1. 36 weeks gestation of ([facility]) Z3A.36 POCT urinalysis dipstick manually resulted 2. Third trimester ([facility]) Z34.93 POCT urinalysis dipstick manually resulted CULTURE, [...] Gina Edouard LPN on behalf of: Tran Perez PA-C documented in this encounter [facility] 12-01-2024 History of Present illness Narrative Reason for Appointment: Patient ID: Donald Adame is a 24 y.o. female who [...] negaitve TONSILLECTOMY 03/27/2010 WISDOM TOOTH EXTRACTION 01/26/2016 [place] teeth REVIEW OF SYSTEMS Review of Systems: Review of Systems Constitutional: Negative. HENT: Negative. Eyes: Negative. Respiratory: Negative. Cardiovascular: Negative. Gastrointestinal: Negative. Genitourinary: Negative. Musculoskeletal: Negative. Skin: Negative. Neurological: Negative. All other systems reviewed and are negative. Hematological: Negative. Endocrine: Negative. Allergic/Immunologic: Negative. OBJECTIVE Objective: OBGyn Exam Vitals: Estimated body mass index is 28.79 kg/m as calculated from the following: Height as of 08/03/23: 5' 5 . Weight as of this encounter: 173 lb. BP: 114/68 No LMP recorded (lmp unknown). Patient is . ASSESSMENT & PLAN ICD-10-CM 1. Third trimester ([facility]) Z34.93 2. 34 weeks gestation of ([facility]) Z3A.34 Patient presents today for a routine obstetrics appointment. Patient is currently 34w2d with a Estimated Date of Delivery: 01/10/25. Patient has no concerns at this time and will return to clinic in 2 weeks for GBS and routine OB appointment. Documented by Hattie Houser LPN on behalf of: Dr. Aden Welsh DO documented in this encounter [facility] 11-17-2024 History of Present illness Narrative Reason for Appointment: Patient ID: Donald Adame is a 24 y.o. female who [...] Menorrhagia Menstrual irregularity Nonsmoker Protein S deficiency ([facility]) HISTORY PAST MEDICAL HISTORY SOCIAL HISTORY Past Medical History: Diagnosis Date Abnormal uterine bleeding (AUB) Anxiety and depression Anxiety disorder DUB (dysfunctional uterine bleeding) Dysmenorrhea Endometriosis H/O one miscarriage Menorrhagia Menstrual irregularity Nonsmoker Pelvic pain in female Protein S deficiency ([facility]) Social History Tobacco Use Smoking status: Never [...] negaitve TONSILLECTOMY 03/27/2010 WISDOM TOOTH EXTRACTION 01/26/2016 [place] teeth REVIEW OF SYSTEMS Review of Systems: [...] nursing note reviewed. Exam conducted with a sanitarian present. Vitals: Estimated body mass index is 28.42 kg/m as calculated from the following: Height as of 08/03/23: 5' 5 . Weight as of this encounter: 170 lb 12.8 oz. BP: 118/76 No LMP recorded (lmp unknown). Patient is . ASSESSMENT & PLAN ICD-10-CM 1. 32 weeks gestation of ([facility]) Z3A.32 POCT urinalysis dipstick manually resulted 2. Third trimester ([facility]) Z34.93 POCT urinalysis dipstick manually resulted Patient presents today for a routine obstetrics appointment. Patient is currently 32w2d with a Estimated Date of Delivery: 01/10/25. Patient to return to clinic in 2 weeks for routine OB appointment. Documented by Hattie Houser LPN on behalf of: Aden Welsh DO documented in this encounter [facility] 11-02-2024 History of Present illness Narrative Reason for Appointment: Patient ID: Donald Adame is a 24 y.o. female who [...] negaitve TONSILLECTOMY 03/27/2010 WISDOM TOOTH EXTRACTION 01/26/2016 [place] teeth REVIEW OF SYSTEMS Review of Systems: Review of Systems Constitutional: Negative. HENT: Negative. Eyes: Negative. Respiratory: Negative. Cardiovascular: Negative. Gastrointestinal: Negative. Genitourinary: Negative. Musculoskeletal: Negative. Skin: Negative. Neurological: Negative. All other systems reviewed and are negative. Hematological: Negative. Endocrine: Negative. Allergic/Immunologic: Negative. OBJECTIVE Objective: Physical Exam Constitutional: Appearance: Normal appearance. She is normal weight. HENT: Head: Normocephalic. Cardiovascular: Rate and Rhythm: Normal rate. Pulses: Normal pulses. Pulmonary: Effort: Pulmonary effort is normal. Breath sounds: Normal breath sounds. Abdominal: Palpations: Abdomen is soft. Musculoskeletal: General: Normal range of motion. Neurological: General: No focal deficit present. Mental Status: She is alert and oriented to person, place, and time. Psychiatric: Mood and Affect: Mood normal. Behavior: Behavior normal. Thought Content: Thought content normal. Judgment: Judgment normal. Vitals and nursing note reviewed. Vitals: Estimated body mass index is 28.29 kg/m as calculated from the following: Height as of 08/03/23: 5' 5 . Weight as of this encounter: 170 lb. BP: 112/70 No LMP recorded (lmp unknown). Patient is . ASSESSMENT & PLAN ICD-10-CM 1. Third trimester ([facility]) Z34.93 POCT urinalysis dipstick manually resulted 2. 30 weeks gestation of ([facility]) Z3A.30 Return OB: Patient presents today for a routine obstetrics appointment. Patient is currently 30w1d . Patient states she is doing well but has complaints of being tired due to current . Patient has verbalizes frequent movement. labor precautions was discussed/given and patient was instructed to perform kick counts three times a day. Orders Placed This Encounter Procedures POCT urinalysis dipstick manually resulted Follow Up: Patient is to return to office in 3 week for routine OB appointment. Documented by Lourdes Caballero MA on behalf of: MALOU Moreno documented in this encounter [facility] 10-20-2024 History of Present illness Narrative Reason for Appointment: Patient ID: Donald Adame is a 24 y.o. female who [...] negaitve TONSILLECTOMY 03/27/2010 WISDOM TOOTH EXTRACTION 01/26/2016 [place] teeth REVIEW OF SYSTEMS Review of Systems: [...] nursing note reviewed. Exam conducted with a sanitarian present. Vitals: Estimated body mass index is 27.22 kg/m as calculated from the following: Height as of 08/03/23: 5' 5 . Weight as of 09/27/24: 163 lb 9.6 oz. BP: No LMP recorded (lmp unknown). Patient is . ASSESSMENT & PLAN ICD-10-CM 1. 28 weeks gestation of ([facility]) Z3A.28 POCT urinalysis dipstick manually resulted 2. Third trimester ([facility]) Z34.93 POCT urinalysis dipstick manually resulted 3. Chlamydia trachomatis infection A56.8 SURESWAB(R) ADVANCED VAGINITIS PLUS, TMA CHLAMYDIA TRACHOMATIS (GENITO/STI) Neisseria gonorrhea DNA probe, direct Patient presents to office today for routine OB appointment along with test of cure cultures. Vaginal cultures obtained and patient given growth scan to have obtained in 2 weeks prior to routine OB appointment. Patient unable to void for urine to be tested in office today. Documented by Hattie Houser LPN on behalf of: Aden Welsh DO documented in this encounter [facility] 09-27-2024 History of Present illness Narrative Reason for Appointment: Patient ID: Donald Adame is a 24 y.o. female who [...] negaitve TONSILLECTOMY 03/27/2010 WISDOM TOOTH EXTRACTION 01/26/2016 [place] teeth REVIEW OF SYSTEMS Review of Systems: [...] nursing note reviewed. Exam conducted with a sanitarian present. Vitals: Estimated body mass index is 26.21 kg/m as calculated from the following: Height as of 08/03/23: 5' 5 . Weight as of 08/29/24: 157 lb 8 oz. BP: No LMP recorded (lmp unknown). Patient is . ASSESSMENT & PLAN ICD-10-CM 1. Second trimester ([facility]) Z34.92 POCT urinalysis dipstick manually resulted 2. 25 weeks gestation of ([facility]) Z3A.25 3. STD exposure Z20.2 SURESWAB(R) ADVANCED [...] of: MALOU Moreno documented in this encounter [facility] 08-29-2024 History of Present illness Narrative Reason for Appointment: Patient ID: Donald Adame is a 24 y.o. female who [...] negaitve TONSILLECTOMY 03/27/2010 WISDOM TOOTH EXTRACTION 01/26/2016 [place] teeth REVIEW OF SYSTEMS Review of Systems: [...] nursing note reviewed. Exam conducted with a sanitarian present. Vitals: Estimated body mass index is [...] week for routine OB appointment. Documented by Rachel Garcia NP on behalf of: Aden Welsh DO documented in this encounter [facility] 08-05-2024 History of Present illness Narrative Reason for Appointment: Patient ID: Donald Adame is a 24 y.o. female who [...] negaitve TONSILLECTOMY 03/27/2010 WISDOM TOOTH EXTRACTION 01/26/2016 [place] teeth No Known Allergies Vitals: Estimated body [...] or undercooked meat, and stay away from [facility]. Patient has also been advised to not [...] Marlene Dunn MA documented in this encounter [facility] 02-01-2024 History of Present illness Narrative Pt presents today for a pre-employment 5 panel drug screen for EPC. Pt verified by photo ID. documented in this encounter [facility] 12-31-2023 Evaluation + Plan note Diagnostic Tests PendingHepatic Function Panel 12/31/23 [facility] General Surgery [place] 12-31-2023 Note General Surgery Offi ce/Clinic Note [...] Immunizations Vaccine Date Status Comments SARS-CoV-2 (COVID-19) mRNAMUL.ORD![id number] 03/10/2022 Recorded SARS-CoV-2 (COVID-19) mRNA BNT-162b2 vax 09/07/2020 Recorded 2023-12-25: TPVAL SARS-CoV-2 (COVID-19) m (more content not included)... [facility] Comment on above: Result Comment: Elec tronically Signed By: Israel POND MD\Date and Time Signed: 12/31/23 09:48 EDT 05-05-2023 History of Present illness Narrative Reason for Appointment: Patient ID: Donald Adame is a 23 y.o. female who presents for Results Patient presents today via telephone call for a telehealth appointment. Patients Phone #: [phone] (mobile) Current Medications: has a current medication [...] negaitve TONSILLECTOMY 03/27/2010 WISDOM TOOTH EXTRACTION 01/26/2016 [place] teeth No Known Allergies Vitals: Estimated body [...] by Gina Edouard LPN on behalf of: Aden Welsh DO documented in this encounter [facility] 10-25-2021 Note OPERATIVE NOTE OPERATION DATE: 11/01/2021 PROCEDURE: Diagnostic laparoscopy with chromopertubation. PREOPERATIVE DIAGNOSIS: 1. Pelvic pain. 2. Possible tubal dysfunction. POSTOPERATIVE DIAGNOSIS: 1. Pelvic pain. 2. Possible tubal dysfunction. ANESTHESIA: General. SURGEON: Aden Welsh D.O. SENIOR DIRECTOR OF GLOBAL COMMERCIAL TECHNOLOGY SOLUTIONS: DUC [place] URINE OUTPUT: Yellow and clear. [...] to Recovery Room in stable condition [facility] Evaluation note Diagnosis Encounter to discuss test results Other specified counseling documented in this encounter [facility] HealthcareEvaluation note* Diagnosis Encounter for drug screening documented [facility] this encounter [facility]* Diagnosis Missed menses , unspecified gestational age Encounter for supervision of normal first in first trimester Screening, , for anatomic survey Encounter for anatomic survey documented in this encounter [facility] HealthcareEvaluation note* Diagnosis Second trimester state, incidental 20 weeks gestation of documented in this encounter [facility]* Diagnosis Second trimester (HHS-HCC) state, incidental 25 weeks gestation of (HHS-HCC) STD exposure Well woman exam with routine gynecological exam Routine gynecological examination Diabetes mellitus screening Screening for diabetes mellitus documented in this encounter [facility]* Diagnosis 28 weeks gestation of (HHS-HCC) Third trimester (HHS-HCC) state, incidental Chlamydia trachomatis infection Chlamydia trachomatis infection of unspecified site documented in this encounter [facility]* Diagnosis Third trimester (HHS-HCC) state, incidental 30 weeks gestation of (HHS-HCC) documented in this encounter [facility]* Diagnosis 32 weeks gestation of (HHS-HCC) Third trimester (HHS-HCC) state, incidental documented in [facility] encounter [facility]* Diagnosis Third trimester (HHS-HCC) state, incidental 34 weeks gestation of (HHS-HCC) documented in [facility] encounter [facility]* Diagnosis 36 weeks gestation of (HHS-HCC) Third trimester (HHS-HCC) state, incidental [facility] Narrative No data available for this section [facility] Discharge instructions No data available for this section [facility] Progress note No data available for this section [facility] Summary Purpose Family History No Family History [...] AUTHOR 05/18/2019 [facility] DATE CREATED AUTHOR AUTHOR'S ORGANIZ ATION 07/20/2022 [facility] DATE CREATED AUTHOR AUTHOR'S ORGANIZ ATION 07/24/2024 [facility] DATE CREATED AUTHOR AUTHOR'S ORGANIZ ATION 12/03/2024 [facility] dical Specialists EPIC Reason for Visit (unrecogniz ed section and content) Reason Comments Results Reason Comments Amenorrhea Reason Comments Routine Visit Care Teams (unrecognized sec tion and content) Fruit Dryer Relationship Specialty Start Date End Date Hoy, Shaw M, MD [address] [facility] [place] [address] PCP - General Family Medicine 09/03/22 Fruit Dryer Relationship Specialty Start Date End Date Shaw Jorgensen MD [address] [facility] [place] [address] PCP - General Family Medicine 09/03/22 Fruit Dryer Relationship Specialty Start Date End Date Shaw Jorgensen MD [address] [facility] PCP - General Family Medicine 09/03/22 Fruit Dryer Relationship Specialty Start Date End Date Shaw Jorgensen MD [address] [facility] PCP - General Family Medicine 09/03/22 Fruit Dryer Relationship Specialty Start Date End Date Shaw Jorgensen MD [address] [facility] PCP - General Family Medicine 09/03/22 Fruit Dryer Relationship Specialty Start Date End Date Shaw Jorgensen MD [address] [facility] PCP - General Family Medicine 09/03/22 Fruit Dryer Relationship Specialty Start Date End Date Shaw Jorgensen MD [address] [facility] [place] [address] PCP - General Family Medicine 09/03/22 Fruit Dryer Relationship Specialty Start Date End Date Shaw Jorgensen MD [address] [place] [address] PCP - General Family Medicine 09/03/22 Fruit Dryer Relationship Specialty Start Date End Date Shaw Jorgensen MD [address] [place] [address] [phone] PCP - General Family Medicine 09/03/22 Fruit Dryer Relationship Specialty Start Date End Date Shaw Jorgensen MD [address] [facility] [place] [address] [phone] PCP - General Family Medicine 09/03/22 FOR [...] BE BASED ON THE PRIMARY CLINICAL RECORDS. [employer] [facility]. provides no warranty or guarantee of the accuracy or completeness of information in this document.
== END 2024-12-13 19:48 | disposition home or self-care (01) ==
LOC: LAB 19:47
PROVIDERS: PCP Family Medicine; Visit Provider Obstetrics & Gynecology
DX: Z34.93 Encounter for supervision of normal pregnancy, unspecified, third trimester (principal)
CPT/HCPCS: 87081

== ENCOUNTER 2024-12-24 14:23 | Inpatient (IN) | payer OTHER, SELFPAY ==
--- OUTSIDE RECORDS SUMMARY | 2024-12-13 10:00 | XMS_ITS | Encounter Summary ---
Author Organization [facility] Address [address] [place] [address] [place] [address] Care Team Providers Care Optical Instrument Assembler Name Role Phone Shaw Jorgensen MD Primary Care Provider [phone] Reason for Visit * Reason Comments Routine Visit Encounter Details Date Type Department Care Team ([facility] Contact Info) Description 12/13/2024 10:00 AM EDT Routine [facility] [address] [place] [phone] Aden Welsh DO [address] [place] [phone] 36 weeks gestation of ([facility] Third trimester ([facility]) Social History Tobacco Use Types Packs/Day Years [...] Sign Reading Time Taken Comments Blood Pressure 120/80 12/13/2024 10:51 AM EDT Pulse - - Temperature - - Respiratory Rate - - Oxygen Saturation - - Inhaled Oxygen Concentration - - Weight 79.9 kg (176 lb 1.9 oz) 12/13/2024 10:51 AM EDT Height - - Body Mass Index 29.31 08/03/2023 10:00 AM EDT documented in this encounter Progress Notes * Gina Edouard, ZULEIKA - 12/13/2024 10:00 AM EDT Reason for Appointment: Patient ID: [...] negaitve TONSILLECTOMY 03/27/2010 WISDOM TOOTH EXTRACTION 01/26/2016 [place] teeth REVIEW OF SYSTEMS Review of Systems: Review of Systems Constitutional: Negative. HENT: Negative. Eyes: Negative. Respiratory: Negative. Cardiovascular: Negative. Gastrointestinal: Negative. Genitourinary: Negative. Musculoskeletal: Negative. Skin: Negative. Neurological: Negative. All other systems reviewed and are negative. Hematological: Negative. Endocrine: Negative. Allergic/Immunologic: Negative. OBJECTIVE Objective: Physical Exam Constitutional: Appearance: Normal appearance. She is well-developed. Genitourinary: Vulva normal. Cardiovascular: Rate and Rhythm: Normal rate and [...] nursing note reviewed. Exam conducted with a ruby software developer present. Vitals: Estimated body mass index is 29.31 kg/m?? as calculated from the following: Height as of 08/03/23: 5' 5 . Weight as of this encounter: 176 lb 1.9 oz. BP: 120/80 No LMP recorded (lmp unknown). Patient is . ASSESSMENT & PLAN ICD-10-CM 1. 36 weeks gestation of ([facility]) Z3A.36 POCT urinalysis dipstick manually resulted 2. Third trimester ([facility]) Z34.93 POCT urinalysis dipstick manually resulted CULTURE, GROUP B STREP WITH SUSCEPTIBLITY CULTURE, GROUP B STREP WITH SUSCEPTIBLITY Patient is doing well but has complaints of being tired and having maternal discomfort due to . Patient verbalized frequent movement and was instructed to perform kick counts three times per day. labor precautions were given, LARC consent was signed/declined, and GBS was obtained. Cervical check was performed and patient is 1cm dilated. Orders Placed This Encounter Procedures CULTURE, GROUP B STREP WITH SUSCEPTIBLITY POCT urinalysis dipstick manually resulted Follow Up: Patient is to return to office in 1 week for routine OB appointment Documented by Gina Edouard LPN on behalf of: Tran Gomez PA-C documented in this encounter Plan of Treatment Upcoming Encounters Date Type Department Care Team (Late st Contact Info) Description 12/26/2024 9:10 AM EDT Routine [facility] [address] [place] [address] Khloe Garcia, PROFESSIONAL BONDSMAN [address] [place] [phone] documented as of this encounter Goals Goal Patient Goal Type Associated Problems Recent Progress Patient-Stated? Author Reminders Care Plan OB Reminders No Open Scheduling, Background documented as of this encounter Procedures Procedure Name Priority Date/Time Associated Diagnosis Comments CULTURE, GROUP B STREP WITH SUSCEPTIBLITY Routine 12/13/2024 11:16 AM EDT Third trimester ([facility]) POCT URINALYSIS DIPSTICK Routine 12/13/2024 11:00 AM EDT 36 weeks gestation of ([facility]) Third trimester ([facility]) documented in this encounter Results * CULTURE, GROUP B STREP WITH SUSCEPTIBLITY (12/13/2024 11:16 AM EDT) Swab 12/13/2024 11:1 6 AM EDT us Aden Welsh DO LAB BLOOD ORDERABLES Final Resul t EXTERNAL LAB * (ABNORMAL) POCT urinalysis dipstick manually resulted (12/13/2024 11:00 AM EDT) Color, UA Straw Clarity, UA Clear Glucose, UA Negative Negative - 2000(110) ++++ mg/dL Bilirubin, UA Negative Negative - 4(70) +++ mg/dL Ketones, UA Negative Negative - 160(16) ++++ mg/dL Spec Grav, UA 1.010 1 - 1.03 Blood, UA Positive Negative - 50 Ralf/mcL pH, UA 7.0 5 - 9 Protein, UA Negative Negative - 2000(20) ++++ mg/dL Urobilinogen, UA 1.0 0.2 - 12 mg/dL Leukocytes, UA Positive Negative - 500+++ Joce/mcL Nitrite, UA Negative Negative - Positive Urine 12/13/2024 11:0 0 AM EDT Aden Welsh DO POINT OF CARE TEST ENTER/EDIT OR DERABLES Final Result documented in this encounter Visit Diagnoses Diagnosis 36 weeks gestation of ([facility]) Third trimester ([facility]) state, incidental documented in this encounter Additional Health Concerns Active Problems Noted Date Diagnosed Date OB Reminders 09/20/2024 documented as of this encounter Care Teams Optical Instrument Assembler Relationship Specialty Start Date End Date Shaw Jorgensen MD [address] [place] [phone] PCP - General Family Medicine 09/03/22 documented as of this encounter
--- OUTSIDE RECORDS SUMMARY | 2024-12-21 11:02 | XMS_ITS ---
Author Name Auto Generated Organization OHIP Support Name Relationship Address Phone MARION ADAMEQUE Next of Kin [address] [place] [address] + OHLEMAC, KAYLIN Next of Kin [address] [place] [address] + OHLEMAC, MAHOGANY Next of Kin [address] [place] [address] + TRACEY ADAME Next of Kin [address] [place] [address] + OHLEMAC, KAYLIN Next of Kin [address] [place] [address] + OHLEMAC, MAHOGANY Next of Kin [address] [place] [address] + TRACEY ADAME Next of Kin [address] [place] [address] + OHLEMAC, KAYLIN Next of Kin [address] [place] [address] + OHLEMACHER, MAHOGANY Next of Kin [address] [place] [address] + TRACEY ADAME Next of Kin [address] [place] [address] + OHLEMAC, KAYLIN Next of Kin [address] [place] [address] + OHLEMAC, MAHOGANY Next of Kin [address] [place] [address] + ADAME, TRACEY Next of Kin [address] [place] [address] + OHLEMACHER, KAYLIN Next of Kin [address] [place] [address] + OHLEMACHER, MAHOGANY Next of Kin [address] [place] [address] + ADAME, TRACEY Next of Kin [address] [place] [address] + OHLEMACHER, KAYLIN Next of Kin [address] [place] [address] + OHLEMACHER, MAHOGANY Next of Kin [address] [address] + ADAME, TRACEY Next of Kin [address] [place] [address] + OHLEMACHER, KAYLIN Next of Kin [address] [place] [address] + OHLEMACHER, MAHOGANY Next of Kin [address] [place] [address] + ADAME, TRACEY Next of Kin [address] [place] [address] + OHLEMACHER, KAYLIN Next of Kin [address] [place] [address] + OHLEMACHER, MAHOGANY Next of Kin [address] [address] + ADAME, TRACEY Next of Kin [address] [place] [address] + OHLEMACHER, KAYLIN Next of Kin [address] [place] [address] + OHLEMACHER, MAHOGANY Next of Kin [address] [place] [address] + WENDI, TRACEY Next of Kin [address] [place] [address] + OHLEMAC, KAYLIN Next of Kin [address] [place] [address] + OHLEMACHER, MAHOGANY Next of Kin [address] [place] [address] + ADAME, TRACEY Next of Kin [address] [place] [address] + OHLEMAC, KAYLIN Next of Kin [address] [place] [address] + OHLEMAC, MAHOGANY Next of Kin [address] [place] [address] + ADAME, TRACEY Next of Kin [address] [address] + OHLEMACHER, KAYLIN Next of Kin [address] [place] [address] + OHLEMAC, MAHOGANY Next of Kin [address] [place] [address] + NATALIE OLEARY Next of Kin [address] [place] [address] + CINDY MCCANN Next of Kin [address] [place] [place] [address] + Care Team Providers Care Commercial Finance Analyst Name Role Phone ROSALVA GOMEZ Attending Unavailable CHRISPATRICIA PATEL Attending Unavailable JASON, ROSALVA Attending Unavailable JASON, ROSALVA Referring Unavailable CHRIS, PATRICIA Attending Unavailable JASONROSALVA VELASQUEZ Attending Unavailable RACHEL SHETH Attending Unavailable JASON, ROSALVA Attending Unavailable JASON, ROSALVA Attending Unavailable NILIsrael Denise Attending Unavailable Israel POND Attending Unavailable Shaw Jorgensen Referring Unavailable Anatoly PARK Attending Unavailable PROBLEMS No Problem Records Found PROCEDURES No Procedure Records Found RESULTS US OB FOLLOW UP TRANSABDOMINAL APPROACH Observed: 11/02/2024 9:34 AM Status: F Source: [facility] EPIC Order Comment: US OB SCAN FO R GROWTH Estimated Date of Delivery: 01/10/25 Gestational Age as of 10/20/2024: 30w1d FINDINGS: Comparison August 29, 2024. A single, [...] BY: ELECTRONICALLY SIGNED BY: Froilan Silva MD US OB 14+ WEEKS ANATOMY SCAN Observed: 0 08/29/2024 12:58 PM Status: F Source: [facility] EPIC Order Comment: US OB ANATOMY SINGLE W US OB CERVICAL LENGTH Estimated Date of Delivery: 01/10/25 Gestational Age as of 08/05/2024: 17w3d EXAM: US OB 14+ WEEKS ANATOM Y SCAN HISTORY: Anatomy. JAN 01/10/2025. A1. COMPARISON: [...] II, MD, PHD at 30-Aug-2024 11:32:36 PM [facility] US OB LIMITED 1+ FETUSES Observed: 08/05 10:40 AM Status: F Source: [facility] EPIC Order Comment: US OB TRANSVA GINAL No LMP recorded. EXAM: US OB LIMITED 1+ FETUS ES HISTORY: Dating. Late care. Unknown LMP. A1. [...] II, MD, PHD at 07-Aug-2024 08:22:24 PM [facility] GENERAL SURGERY OFFICE/CLINI C NOTE Observed: 04/11/2024 4:18 PM Status: F Source: [facility] General Surgery Office/Clini c Note Chief Complaint update H&P for cholecystectomy [...] Immunizations Vaccine Date Status Comments SARS-CoV-2 (COVID-19) mRNAMUL.ORD![id number] 03/10/2022 Recorded SARS-CoV-2 (COVID-19) mRNA BNT-162b2 vax 09/07/2020 Recorded 2023-12-25: TPVAL SARS-CoV-2 (COVID-19) mRNA BNT-162b2 vax 08/17/2020 Recorded 2023-12-25: TPVAL Result Comment: Electronical ly Signed By: DEJAH ARDON, Israel Oh\Date and Time Signed: 04/11/24 16:18 EST GENERAL SURGERY OFFICE/CLINI C NOTE Observed: 12/31/2023 9:47 AM Status: F Source: [facility] General Surgery Office/Clini c Note Chief Complaint consultation for cholelithiasis HPI [...] Immunizations Vaccine Date Status Comments SARS-CoV-2 (COVID-19) mRNAMUL.ORD![id number] 03/10/2022 Recorded SARS-CoV-2 (COVID-19) mRNA BNT-162b2 vax 09/07/2020 Recorded 2023-12-25: TPVAL SARS-CoV-2 (COVID-19) mRNA BNT-162b2 vax 08/17/2020 Recorded 2023-12-25: TPVAL Result Comment: Electronical ly Signed By: DEJAH ARDON, Israel Gonzalez\.br\Date and Time Signed: 12/31/23 09:48 EDT AMBULATORY VISIT SUMMARY Observed: 12/30 9:36 AM Status: F Source: [facility] Ambulatory Visit Summary DONALD ADAME :2000 Visit [...] you for choosing us for your care. ALLERGIES DATE TYPE / CODE NAME / CODE REACTION SEVERITY SOURCE Miscellaneous Allergy/253060927(SNOMED CT) No Known [facility]ies [facility]SN[facility]ED CT[facility] No Known Medication Allergies [facility] ENCOUNTERS ADMIT/DISCHARGE ACCOUNT NUMBER ADMITTING ENCOUNTER CLASS LOCATION SOURCE 12/21/2024/12/22/19 25 [id number] Ambulatory Building:[facility] 12/13/2024/12/14/19 25 [id number] Ambulatory Building:[facility] 12/01/2024/12/02/19 25 [id number] Ambulatory Building:[facility] 11/17/2024/11/18/19 25 [id number] Ambulatory Building:[facility] 11/02/2024/11/03/19 25 [id number] Ambulatory Building:[facility] 11/02/2024/11/03/19 25 [id number] Ambulatory Building:[facility] 10/20/2024/10/21/19 25 [id number] Ambulatory Building:[facility] 09/27/2024/09/28/19 25 [id number] Ambulatory Building:[facility] 08/29/2024/08/30/19 25 [id number] Ambulatory Building:[facility] 08/29/2024/08/30/19 25 [id number] Ambulatory Building:[facility] 08/05/2024/08/06/19 [id number] Ambulatory Building:[facility] EPIC 08/05/2024/08/06/19 [id number] Ambulatory Building:[facility] EPIC 07/24/2024 [id number] Ambulatory HC JailBuilding:HC [facility]f [facility] 04/11/2024/04/11/19 [id number] Amb[place] [place]: CD:[id number] [facility] 03/24/2024 [id number] Ambulatory [place] [facility] 02/01/2024/02/01/20 [id number] Ambulatory Building:[facility] EPIC 01/14/2024/01/14/20 [id number] Ambulatory Occupational Health and WellnessBuildin g:[facility] 12/31/2023/12/31/19 [id number] Ambulatory [place] :[facility] [place]: CD:[id number] [facility] PAYERS ENCOUNTER GUARANTOR PAYER SUBSCRIBER SOURCE 12/21/2024 DONALD JAFFE: [place] [address]Tel: () Primary Insurance:[employer] MEDICAIDPolicy Number: [id number] Date:2024-06-28 DONALD JAFFE: [id number] [address] [address] [facility] 12/13/2024 DONALD JAFFE: [address] [address]Ldf: (HP) Primary Insurance:[employer] MEDICAIDPolicy Number: [id number] Date:2024-06-28 DONALD JAFFE: [id number] [address] [address] [facility] 12/01/2024 DONALD JAFFE: EMMIE HURTADO [id number], [facility]Vqm: (HP) Primary Insurance:[facility] MEDICAIDPolicy Number: [id number] Date:2024-06-28 DONALDNIKKY ADAMEDOB: [id number] [facility] [id number], [facility] [facility] EPIC 11/17/2024 DONALD WENDIDOB: EMMIE HURTADO [id number], [place] [id number]: (HP) [facility] Insurance[place] [place] [place]Policy Number: [id number] Date:2024-06-28 DONALDNIKKY KENDALLZENADOB: [id number] EMMIE HURTADO [id number], [facility] [facility] EPIC 11/02/2024 DONALD WENDIDOB: EMMIE HURTADO [id number], [place] [phone]: (HP) Primary Insurance:[facility] MEDICAIDPolicy Number: [id number] Date:2024-06-28 DONALDNIKKY KENDALLZENADOB: [id number] EMMIE HURTADO [id number], [facility] [facility] EPIC 11/02/2024 DONALD WENDIDOB: EMMIE HURTADO [id number], [place] [phone]: (HP) Primary Insurance:[facility] MEDICAIDPolicy Number: [id number] Date:2024-06-28 DONALD MANIB: [id number] EMMIE HURTADO [id number], [facility] [facility] EPIC 10/20/2024 DONALD WENDIDOB: OLEA CLAREMONTMUKESH [id number], [facility]Pky: (HP) Primary Insurance:[employer] MEDICAIDPolicy Number: [id number] Date:2024-06-28 DONALDNIKKY KENDALLZENADOB: [id number] EMMIE HURTADO [id number], [facility] [facility] EP[facility] 09/27/2024 DONALD HILTONDOB: EMMIE HURTADO [id number], [facility]Sst: (HP) Primary Insurance:[facility] MEDICAIDPolicy Number: [id number] Date:2024-06-28 DONALDINKKY KENDALLZENADOB: [id number] EMMIE HURTADO [id number], [facility] [facility] EP[facility] 08/29/2024 DONALD HILTONDOB: EMMIE HURTADO [id number], [facility]Csj: (HP) Primary Insurance:[facility] MEDICAIDPolicy Number: [id number] Date:2024-06-28 DONALDNIKKY ADAMEDOB: [id number] EMMIE HURTADO [id number], [facility] [facility] EP[facility] 08/29/2024 DONALDNIKKY KENDALLTONDOB: EMMIE HURTADO [id number], [facility]Ynu: (HP) Primary Insurance:[facility] MEDICAIDPolicy Number: [id number] Date:2024-06-28 DONALDNIKKY KENDALLZENADOB: [id number] EMMIE HURTADO [id number], [facility] [facility] 08/05/2024 DONALD ENOCHTONDOB: EMMIE HURTADO [id number], [facility]Usm: (HP) [facility] MEDICAIDPolicy Number: [id number] Date:2024-06-28 DONALD ADAMEDOB: [id number] EMMIE [place]ONGAPT [place] [address] [facility] 08/05/2024 DONALD ADAMEB: EMMIE HURTADO [id number] VIL[place] [id number]: (HP) Primary Insurance:[employer] MEDICAIDPolicy Number: [id number] Date:2024-06-28 DONALDNIKKY ADAMEB: [id number] EMMIE HURTADO [place] [address] [facility] EP[facility] 04/11/2024 DONALD ADAMEDOB: [facility]Tel: ~~(4 1 (HP) Primary Insurance:MedicaidPoli cy Number: [id number] Date:2024-04-07 [facility] 02/01/2024 DONALD SINGLETONB: [place]ANDRE[place] [phone]: (HP) (WP) Primary Insurance:BCBSPolicy Number: [id number] Date:2022-10-282023-10-12 DONALD ADAMEB: [id number] [place] [address] [facility] EPIC 12/31/2023 DONALD MANIB: BRISALANE ~(41 9 (HP) Primary Insurance:AnthemPolicy Number: [id number] Date:2338-05-16LY LUCY [id number] [place]ILL [address]YW: [facility]
--- OUTSIDE RECORDS SUMMARY | 2024-12-21 11:10 | XMS_ITS | Encounter Summary ---
Author Organization [facility] Address [address] [place] [address] [place] [address] Care Team Providers Care Propagation Manager Name Role Phone Shaw Jorgensen MD Primary Care Provider [phone] Reason for Visit * Reason Comments Routine Visit Encounter Details Date Type Department Care Team ([facility] Contact Info) Description 12/21/2024 11:10 AM EDT Routine NOMChantal Boo OBGYSeferino [address] [place] [phone] Aden Welsh DO [address] [place], [place] [id number] Third trimester ([facility]); 37 weeks gestation of ([facility]) Social History Tobacco Use Types Packs/Day Years [...] Sign Reading Time Taken Comments Blood Pressure 126/84 12/21/2024 11:35 AM EDT Pulse - - Temperature - - Respiratory Rate - - Oxygen Saturation - - Inhaled Oxygen Concentration - - Weight 80.8 kg (178 lb 1.9 oz) 12/21/2024 11:35 AM EDT Height - - Body Mass Index 29.64 08/03/2023 10:00 AM EDT documented in this encounter Progress Notes * Gina Edouard LPN - 12/21/2024 11:10 AM EDT Reason for Appointment: Patient ID: [...] negaitve TONSILLECTOMY 03/27/2010 WISDOM TOOTH EXTRACTION 01/26/2016 [place] teeth REVIEW OF SYSTEMS Review of Systems: [...] nursing note reviewed. Exam conducted with a hospital monitor present. Vitals: Estimated body mass index is 29.31 kg/m?? as calculated from the following: Height as of 08/03/23: 5' 5 . Weight as of 12/13/24: 176 lb 1.9 oz. BP: No LMP recorded (lmp unknown). Patient is . ASSESSMENT & PLAN ICD-10-CM 1. Third trimester ([facility]) Z34.93 POCT urinalysis dipstick manually resulted 2. 37 weeks gestation of ([facility]) Z3A.37 Return OB: Patient presents today for a routine obstetrics appointment. Patient is currently 37w1d . Patient states she is doing well but has complaints of being tired due to current . Patient has verbalizes frequent movement. labor precautions was discussed/given and patient was instructed to perform kick counts three times a day. Orders Placed This Encounter Procedures POCT urinalysis dipstick manually resulted Follow Up: Patient is to return to office in 1 week for routine OB appointment. Documented by Gina Edouard LPN on behalf of: Aden Welsh DO documented in this encounter Plan of Treatment Upcoming Encounters Date Type Department Care Team (Late st Contact Info) Description 12/26/2024 9:10 AM EDT Routine [facility] Rajeev OBGYN [address] [place] [address] Khloe Garcia, KNITTER WIRE MESH [address] [place] [address] documented as of this encounter Goals Goal Patient Goal Type Associated Problems Recent Progress Patient-Stated? Author Reminders Care Plan OB Reminders No Open Scheduling, Background documented as of this encounter Procedures Procedure Name Priority Date/Time Associated Diagnosis Comments POCT URINALYSIS DIPSTICK Routine 12/21/2024 11:16 AM EDT Third trimester ([facility]) documented in this encounter Results * (ABNORMAL) POCT urinalysis dipstick manually resulted (12/21/2024 11:16 AM EDT) Color, UA Yellow Clarity, UA Clear Glucose, UA Negative Negative - 2000(110) ++++ mg/dL Bilirubin, UA Negative Negative - 4(70) +++ mg/dL Ketones, UA Negative Negative - 160(16) ++++ mg/dL Spec Grav, UA 1.015 1 - 1.03 Blood, UA Positive Negative - 50 Ralf/mcL Comment:trace pH, UA 6.5 5 - 9 Protein, UA Negative Negative - 2000(20) ++++ mg/dL Urobilinogen, UA 0.2 0.2 - 12 mg/dL Leukocytes, UA Positive Negative - 500+++ Joce/mcL Comment:3+ Nitrite, UA Negative Negative - Positive Urine 12/21/2024 11:1 6 AM EDT Result [facility] Aden Welsh DO POINT OF CARE TEST ENTER/EDIT OR DERABLES Final Result documented in this encounter Visit Diagnoses Diagnosis Third trimester ([facility]) state, incidental 37 weeks gestation of ([facility]) documented in this encounter Additional Health Concerns Active Problems Noted Date Diagnosed Date OB Reminders 09/20/2024 documented as of this encounter Care Teams Propagation Manager Relationship Specialty Start Date End Date Shaw Jorgensen MD [address] [place] [address] PCP - General Family Medicine 09/03/22 documented as of this encounter
[2024-12-24] VITALS (15 sets, daily range): BP systolic 117–149; BP diastolic 63–94; PULSE 75–190; TEMP 36.2–36.9
--- OUTSIDE RECORDS SUMMARY | 2024-12-24 14:28 | XMS_ITS | Encounter Summary ---
Author Organization [facility] Address [address] [place] [address] Care Team Providers Care Journal Clerk Name Role Phone Shaw Jorgensen MD Primary Care Provider [phone] Encounter Details Date Type Department Care Team (Late st Contact Info) Description 08/05/2023 Clinisync Result Encounter NOMS External Department Unsolicited Tran Perez PA [address] [place] [address] Social History Tobacco Use Types Packs/Day Years [...] Description 12/26/2024 9:10 AM EDT Routine [facility] Roslyn OBGYSeferino [address] [place] [phone] Khloe Garcia NP [address] [place] [address] [place] [address] documented as of this encounter Procedures Procedure Name Priority Date/Time Associated Diagnosis Comments US PELVIS W/ TRANSVAGINAL 08/05/2023 9:14 AM EDT documented in this encounter Results * US PELVIS W/ TRANSVAGINAL (08/05/2023 9:14 AM EDT) Anatomical Region Laterality Modality Other 08/05/2023 9:14 AM EDT Narrative 08/05/2023 9:16 AM EDT [address] [address] Ultrasound Report Signed Patient: LOYDA GIBSON MR#: [id number] : 2000 Acct:[id number] Age/Sex: 23 / F ADM Date: 08/05/23 Loc: US Attending Dr: Tran Perez Ordering Physician: Tran Perez Date of Service: 08/05/23 Procedure(s): US pelvis w/ transvaginal Accession Number(s): [id number] cc: Tran Perez; Shaw Jorgensen M.D. [address] [address] Patient Name: LOYDA GIBSON MRN: [id number] date: 2000 Sex: F Assigned Patient Location: US Current Patient Location: US Accession/Order Number: [id number] Exam Date: 08/05/2023 08:20 Report Date: 08/05/2023 [...] M.D. Signed By: 08/05/23915 DD/ 3 TD/TT: Control Specialist: Procedure Note Radiology, Radiologist, MD - 08/05/2023 [place] [address] Ultrasound Report Signed Patient: LOYDA GIBSON CMR#: [id number] : 2000Acct:[id number] Age/Sex: FADM Date: 08/05/23 Loc: US Attending Dr: Tran Perez Ordering Physician: Tran Perez Date of Service: 08/05/23 Procedure(s): US pelvis w/ transvaginal Accession Number(s): [id number] cc: Tran Perez; Shaw Jorgensen M.D. The [place] [id number] Patient Name: LOYDA GIBSON MRN: [id number] date: 2000 Sex: F Assigned Patient Location: US Current Patient Location: US Accession/Order Number: [id number] Exam Date: 08/05/2023 08:20 Report Date: 08/05/2023 [...] Foreman M.D. Signed By:08/05/23915 DD/ 3 TD/TT: Control Specialist: us rTan [facility] Final Result documented in this encounter Visit Diagnoses Not on filedocumented in this encounter Care Teams Journal Clerk Relationship Specialty Start Date End Date Shaw Jorgensen MD [address] [place] [address] PCP - General Family Medicine 09/03/22 documented as of this encounter
--- OUTSIDE RECORDS SUMMARY | 2024-12-24 14:28 | XMS_ITS | Encounter Summary ---
Author Organization [facility] Address [address] [place] [address] Care Team Providers Care Knitting Machine Fixer Name Role Phone Shaw Jorgensen MD Primary Care Provider [phone] Encounter Details Date Type Department Care Team (Late st Contact Info) Description 10/23/2022 Abstract [facility] HOU [address] [place] [address] Tran Gomez PA [address] [place] [address] Social History Tobacco Use Types Packs/Day Years [...] 12/26/2024 9:10 AM EDT Routine [facility] Roslyn VILLANUEVAGYN [address] [place] [phone] Khloe Garcia, ALBINO [address] [place] [address] documented as of this encounter Visit Diagnoses Not on filedocumented in this encounter Care Teams Knitting Machine Fixer Relationship Specialty Start Date End Date Shaw Jorgensen MD [address] [facility] [place] [address] PCP - General Family Medicine 09/03/22 documented as of this encounter
--- OUTSIDE RECORDS SUMMARY | 2024-12-24 14:28 | XMS_ITS | Encounter Summary ---
Author Organization [facility] Address [address] [place] [address] Care Team Providers Care Patch Press Operator Name Role Phone Shaw Jorgensen MD Primary Care Provider [phone] Encounter Details Date Type Department Care Team (Latest Contact Info) Description 12/17/2024 Travel Social History Tobacco Use Types Packs/Day [...] Department Care Team ( Contact Info) Description 12/26/2024 9:10 AM EDT Routine [facility] OBGYN [address] [place] [address] Khloe Garcia, HL7 INTERFACE DEVELOPER [address] [place] [address] documented as of this encounter Goals Goal Patient Goal Type Associated Problems Recent Progress Patient-Stated? Author Reminders Care Plan OB Reminders No Open Scheduling, Background documented as of this encounter Visit Diagnoses Not on filedocumented in this encounter Additional Health Concerns Active Problems Noted Date Diagnosed Date OB Reminders 09/20/2024 documented as of this encounter Care Teams Patch Press Operator Relationship Specialty Start Date End Date Shaw Jorgensen MD [address] [place] [address] PCP - General Family Medicine 09/03/22 documented as of this encounter
--- OUTSIDE RECORDS SUMMARY | 2024-12-24 14:28 | XMS_ITS | Encounter Summary ---
Author Organization [facility] Address [address] [place] [address] Care Team Providers Care Litigation Manager Name Role Phone Shaw Jorgensen MD Primary Care Provider [phone] Encounter Details Date Type Department Care Team (Late st Contact Info) Description 09/24/2023 Abstract ANA LUISA HOU [address] [facility] [place] [address] Vaishali Villagomez LPN [address] [facility] [address] [place] [address] Social History Tobacco Use Types Packs/Day Years [...] Info) Description 12/26/2024 9:10 AM EDT Routine NOMChantal Koenigue OBGYN [address] [place] [phone] Khloe Garcia, ALBINO [address] [place] [address] documented as of this encounter Visit Diagnoses Not on filedocumented in this encounter Care Teams Litigation Manager Relationship Specialty Start Date End Date Shaw Jorgensen MD [address] [facility] [place] [phone] PCP - General Family Medicine 09/03/22 documented as of this encounter
--- OUTSIDE RECORDS SUMMARY | 2024-12-24 14:28 | XMS_ITS ---
Author Organization [facility] Source Produ ction (ClinicalSummary Clone) Address Unknown Care Team Providers Care General Utility Worker Name Role Phone Unavailable Primary Care Physician Unavailab le Results * [UNITY] ANEUPLOIDY NIPT Performed by: [employer] Component Value Range Date Fraction 4.6% 08/12/2024 09 :06 pm UTC Rh(D) NIPT RhD DETECTED 08/12/2024 09:0 6 pm UTC Sex Chromosome Aneuploidy NOT DETECTED 09:06 pm UTC Monosomy X LOW RISK <1 in 10,000 2024 09:06 pm UTC Trisomy 13 LOW RISK <1 in 10,000 2024 09:06 pm UTC Trisomy 18 LOW RISK <1 in 10,000 2024 09:06 pm UTC Trisomy 21 LOW RISK <1 in 10,000 2024 09:06 pm UTC Sex MALE 08/12/2024 09:0 6 pm UTC Gestation BLAND 08/13/19 25 09:06 pm UTC For detailed report, see PDF See PDF 08/12/2024 09:06 pm UTC 08/12/2024 09:0 6 pm UTC Social History Observation Value Start Date End Date
--- OUTSIDE RECORDS SUMMARY | 2024-12-24 14:28 | XMS_ITS | Encounter Summary ---
Author Organization [facility] Address [address] [place] [address] Care Team Providers Care Children'S Entertainer Name Role Phone Shaw Jorgensen MD Primary Care Provider [phone] Encounter Details Date Type Department Care Team (Late st Contact Info) Description 12/09/2023 Orders Only ANA LUISA [place] OBGYN [address] [place] [address] Vaishali Villagomez LPN [address] [facility] [place] [address] [place] [address] Social History Tobacco Use Types Packs/Day Years [...] EDT Routine [facility] Rajeev OBGYN [address] [place] [phone] Khloe Garcia, ALBINO [address] [place] [address] documented as of this encounter Procedures Procedure [...] on filedocumented in this encounter Care Teams Children'S Entertainer Relationship Specialty Start Date End Date Shaw Jorgensen MD [address] [facility] [place] [address] PCP - General Family Medicine 09/03/22 documented as of this encounter
--- OUTSIDE RECORDS SUMMARY | 2024-12-24 14:28 | XMS_ITS | Encounter Summary ---
Author Organization [facility] Address [address] [place] [address] Care Team Providers Care Android Programmer Name Role Phone Shaw Jorgensen MD Primary Care Provider [phone] Encounter Details Date Type Department Care Team (Late st Contact Info) Description 12/13/2024 Bamboo flowsheet NOMChantal Boo OBGYSeferino [address] [place] [address] Aden Welsh DO [address] [place] [address] Social History Tobacco Use Types Packs/Day Years [...] OBGYN [address] [place] [phone] Khloe Garcia, RACING SECRETARY [address] [place] [address] documented as of this encounter Goals Goal Patient Goal Type Associated Problems Recent Progress Patient-Stated? Author Reminders Care Plan OB Reminders No Open Scheduling, Background documented as of this encounter Visit Diagnoses Not on filedocumented in this encounter Additional Health Concerns Active Problems Noted Date Diagnosed Date OB Reminders 09/20/2024 documented as of this encounter Care Teams Android Programmer Relationship Specialty Start Date End Date Shaw Jorgensen MD [address] [facility] [place] [address] PCP - General Family Medicine 09/03/22 documented as of this encounter
--- OUTSIDE RECORDS SUMMARY | 2024-12-24 14:29 | XMS_ITS | Encounter Summary ---
Author Organization [facility] Address [address] [place] [address] Care Team Providers Care Cna Hha Name Role Phone Shaw Jorgensen MD Primary Care Provider [phone] Encounter Details Date Type Department Care Team (Late st Contact Info) Description 08/16/2024 Abstract [facility] OBBETZY [address] [place] [address] Aden Welsh DO [address] [place] [address] Social History Tobacco Use Types Packs/Day Years [...] AM EDT Routine [facility] OBGYN [address] [place] [address] Khloe Garcia, A CLASS LINEMAN [address] [place] [address] documented as of this encounter Visit Diagnoses Not on filedocumented in this encounter Care Teams Cna Hha Relationship Specialty Start Date End Date Shaw Jorgensen MD [address] [facility] [place] [address] PCP - General Family Medicine 09/03/22 documented as of this encounter
--- OUTSIDE RECORDS SUMMARY | 2024-12-24 14:29 | XMS_ITS ---
Author Organization [facility] Source Produ ction (ClinicalSummary Clone) Address Unknown Care Team Providers Care University Administrator Name Role Phone Unavailable Primary Care Physician Unavailab le Results * [UNITY] CARRIER SCREEN Performed by: [employer] Component Value Range Date Sickle Cell Disease/Beta-Thalassemia/Hemo globinopathies carrier screen NEGATIVE 08/17/2024 05:38 pm UTC Alpha-Thalassemia carrier screen NEGATIVE 08/17/2024 05:38 pm UTC Cystic Fibrosis carrier screen NEGATIVE 08/17/2024 05:38 pm UTC Spinal Muscular Atrophy carrier screen NEGATIVE 2 SMN1 copies, SNP not present 08/17/2024 05:38 pm UTC For detailed report, see PDF See PDF 08/17/2024 05:38 pm UTC 08/17/2024 05:3 8 pm UT Social History Observation Value Start Date End Date
--- OUTSIDE RECORDS SUMMARY | 2024-12-24 14:29 | XMS_ITS | Encounter Summary ---
Author Organization [facility] Address [address] [place] [address] Care Team Providers Care Manager Nursing Name Role Phone Shaw Jorgensen MD Primary Care Provider [phone] Encounter Details Date Type Department Care Team (Late st Contact Info) Description 08/30/2024 Abstract [facility] OBBETZY [address] [place] [address] Aden Welsh DO [address] [facility] [place] [place] [address] Social History Tobacco Use Types Packs/Day Years [...] AM EDT Routine [facility] OBGYN [address] [place] [address] Khloe Garcia, CHEMICAL INSPECTOR [address] [place] [address] documented as of this encounter Visit Diagnoses Not on filedocumented in this encounter Care Teams Manager Nursing Relationship Specialty Start Date End Date Shaw Jorgensen MD [address] [place] [facility] [address] PCP - General Family Medicine 09/03/22 documented as of this encounter
--- OUTSIDE RECORDS SUMMARY | 2024-12-24 14:29 | XMS_ITS | Encounter Summary ---
Author Organization [facility] Address [address] [place] [address] Care Team Providers Care Streetcar Operator Name Role Phone Shaw Jorgensen MD Primary Care Provider [phone] Encounter Details Date Type Department Care Team (Late st Contact Info) Description 08/15/2024 Abstract [facility] OBBETZY [address] [place] [address] Aden Welsh DO [address] [facility] [place] [address] Social History Tobacco Use Types Packs/Day Years [...] AM EDT Routine [facility] OBGYN [address] [place] [address] Khloe Garcia, SOFTWARE TOOLS BUILD ENGINEER [address] [facility] [place] [address] documented as of this encounter Visit Diagnoses Not on filedocumented in this encounter Care Teams Streetcar Operator Relationship Specialty Start Date End Date Shaw Jorgensen MD [address] [facility] [place] [address] PCP - General Family Medicine 09/03/22 documented as of this encounter
--- OUTSIDE RECORDS SUMMARY | 2024-12-24 14:29 | XMS_ITS | Encounter Summary ---
Author Organization [facility] Address [address] [place] [address] [place] [address] Care Team Providers Care Emergency Spill Response Technician Name Role Phone Shaw Jorgensen MD Primary Care Provider [phone] Encounter Details Date Type Department Care Team (Late st Contact Info) Description 08/15/2024 Abstract [facility] Roslyn OBBETZY [address] [place] [address] Aden Welsh DO [address] [place] [address] Social History Tobacco Use Types Packs/Day Years [...] AM EDT Routine [facility] OBGYN [address] [facility] [place] [address] Khloe Garcia, MICROFILMER [address] [place] [address] documented as of this encounter Visit Diagnoses Not on filedocumented in this encounter Care Teams Emergency Spill Response Technician Relationship Specialty Start Date End Date Shaw Jorgensen MD [address] [facility] [place] [address] PCP - General Family Medicine 09/03/22 documented as of this encounter
--- OUTSIDE RECORDS SUMMARY | 2024-12-24 14:29 | XMS_ITS | Encounter Summary ---
Author Organization [facility] Address [address] [place] [address] Care Team Providers Care Environmental Programs Specialist Name Role Phone Shaw Jorgensen MD Primary Care Provider [phone] Encounter Details Date Type Department Care Team (Latest Contact Info) Description 12/22/2024 Travel Social History Tobacco Use Types Packs/Day [...] AM EDT Routine [facility] OBGYN [address] [place] [address] Khloe Garcia, HAND SPRAY OPERATOR [address] [place] [address] documented as of this encounter Goals Goal Patient Goal Type Associated Problems Recent Progress Patient-Stated? Author Reminders Care Plan OB Reminders No Open Scheduling, Background documented as of this encounter Visit Diagnoses Not on filedocumented in this encounter Additional Health Concerns Active Problems Noted Date Diagnosed Date OB Reminders 09/20/2024 documented as of this encounter Care Teams Environmental Programs Specialist Relationship Specialty Start Date End Date Shaw Jorgensen MD [address] [place] [address] PCP - General Family Medicine 09/03/22 documented as of this encounter
--- OUTSIDE RECORDS SUMMARY | 2024-12-24 14:29 | XMS_ITS | Encounter Summary ---
Author Organization [facility] Address [address] [place] [address] Care Team Providers Care Brim Molder Name Role Phone Shaw Jorgensen MD Primary Care Provider [phone] Encounter Details Date Type Department Care Team (Late st Contact Info) Description 04/15/2023 Clinisync Result Encounter NOMS External Department Unsolicited Rosalva Welsh DO [address] [facility] [place] [address] Social History Tobacco Use Types Packs/Day Years [...] AM EDT Routine [facility] Rajeev OBGYN [address] [facility] [place] [address] Khloe Garcia, ALBINO [address] [place] [address] [place] [address] documented as of this encounter Procedures Procedure Name Priority Date/Time Associated Diagnosis Comments US PELVIS W/ TRANSVAGINAL 04/15/2023 3:25 PM EST documented in this encounter Results * US PELVIS W/ TRANSVAGINAL (04/15/2023 3:25 PM EST) Anatomical Region Laterality Modality Other 04/15/2023 3:25 PM EST Narrative 04/15/2023 3:28 PM EST [address] [address] Ultrasound Report Signed Patient: LOYDA GIBSON MR#: [id number] : 2000 Acct:[id number] Age/Sex: 23 / F ADM Date: 04/15/23 Loc: US Attending Dr: Rosalva Welsh D.O. Ordering Physician: Rosalva Welsh D.O. Date of Service: 04/15/23 Procedure(s): US pelvis w/ transvaginal Accession Number(s): [id number] cc: Rosalva Welsh D.O.; Shaw Jorgensen M.D. [address] [address] Patient Name: LOYDA GIBSON MRN: [id number] date: 2000 Sex: F Assigned Patient Location: US Current Patient Location: US Accession/Order Number: [id number] Exam Date: 04/15/2023 14:09 Report Date: 04/15/2023 [...] Signed By: 04/15/23 1528 DD/ 1525 TD/TT: Cleat Blanker: Procedure Note Radiology, Radiologist, MD - 04/15/2023 [place] [address] Ultrasound Report Signed Patient: LOYDA GIBSON CMR#: [id number] : 2000Acct:[id number] Age/Sex: 23 / FADM Date: 04/15/23 Loc: US Attending Dr: Rosalva Welsh D.O. Ordering Physician: Rosalva Welsh D.O. Date of Service: 04/15/23 Procedure(s): US pelvis w/ transvaginal Accession Number(s): [id number] cc: Rosalva Welsh D.O.; Shaw Jorgensen M.D. The [place] [id number] Patient Name: LOYDA GIBSON MRN: [id number] date: 2000 Sex: F Assigned Patient Location: US Current Patient Location: US Accession/Order Number: [id number] Exam Date: 04/15/2023 14:09 Report Date: 04/15/2023 [...] M.D. Signed By:04/15/23 1528 DD/ 1525 TD/TT: Cleat Blanker: us Rosalva Anitha DO [facility] Final Result documented in this encounter Visit Diagnoses Not on filedocumented in this encounter Care Teams Brim Molder Relationship Specialty Start Date End Date Shaw Jorgensen MD [address] [place] [address] PCP - General Family Medicine 09/03/22 documented as of this encounter
--- OUTSIDE RECORDS SUMMARY | 2024-12-24 14:29 | XMS_ITS | Encounter Summary ---
Author Organization [facility] Address [address] [place] [address] Care Team Providers Care Promotions Executive Producer Name Role Phone Shaw Jorgensen MD Primary Care Provider [phone] Encounter Details Date Type Department Care Team (Late st Contact Info) Description 08/08/2024 Abstract [facility] OBBETZY [address] [place] [address] Aden Welsh DO [address] [place] [address] Social History Tobacco Use Types Packs/Day Years [...] Description 12/26/2024 9:10 AM EDT Routine [facility]lyn OBGYN [address] [place] [address] Khloe Garcia, BIOMASS TECHNICIAN [address] [place] [address] documented as of this encounter Visit Diagnoses Not on filedocumented in this encounter Care Teams Promotions Executive Producer Relationship Specialty Start Date End Date Shaw Jorgensen MD [address] [place] [address] PCP - General Family Medicine 09/03/22 documented as of this encounter
--- OUTSIDE RECORDS SUMMARY | 2024-12-24 14:29 | XMS_ITS | Clinical Summary ---
Author Organization [facility] Address [address] [place] [address] [place] [address] Care Team Providers Care Ciso Name Role Phone Shaw Jorgensen MD Primary Care Provider [phone] Allergies No known active allergies Medications cetirizine [...] Encounters Date Type Department Care Team Description 12/22/2024 Travel 12/21/2024 11:10 AM EDT Routine [facility] Rajeev [facility] [address] [place] [address] Rosalva Welsh DO Third trimester ([facility]); 37 weeks gestation of ([facility]) 12/21/2024 Bamboo flowsheet [facility] Raj[facility] [address] [place] [address] Rosalva Welsh, 12/17/2024 Travel 12/13/2024 10:00 AM EDT Routine [facility] Raje[place] [address] Rosalva Welsh, DO 36 weeks gestation of ([facility]); Third trimester ([facility]) 12/13/2024 Bamboo flowsheet [facility] Rajeev Jennings [facility] [address] [address] Rosalva Welsh, 12/08/2024 Travel 12/01/2024 10:40 AM EDT Routine [facility] Rajeev Jennings [facility] [place] [address] Khloe aGrcia, ALBINO Third trimester ([facility]); 34 weeks gestation of ([facility]) 12/01/2024 Bamboo flowsheet [facility] Rajeev Jennings [facility] [place] [address] Khloe Garcia, ALBINO 11/30/2024 Travel 11/17/2024 11:00 AM EDT Routine [facility] Rajeev [place] [address] Rosalva Welsh, 32 weeks gestation of ([facility]); Third trimester ([facility]) 11/17/2024 Bamboo flowsheet [facility] Rajeev Jennings [facility] [address] Rosalva Welsh, 11/15/2024 Travel 11/02/2024 10:00 AM EDT Routine [facility] Rajeev [place] [address] Tran Gomez PA Third trimester ([facility]); 30 weeks gestation of ([facility]) 11/02/2024 9:30 AM EDT Ancillary Procedure [facility] Rajeev Jennings [facility] [address] Third trimester ([facility]); Size of fetus inconsistent with dates, antepartum ([facility]) 10/31/2024 Travel 10/21/2024 Telephone [facility] Rajeev JAMESN [address] [place] [address] Lourdes Caballero MA 10/20/2024 10:50 AM EDT Routine [facility] Rajeev VILLANUEVAGYN [address] [facility] [place] [address] Rosalva Welsh DO 28 weeks gestation of ([facility]); Third trimester ([facility]); Chlamydia trachomatis infection; Size of fetus inconsistent with dates, antepartum ([facility]) 10/20/2024 Clinisync Result Encounter [facility] External Department Unsolicited Tran Gomez PA 10/13/2024 Travel 10/05/2024 Orders Only [facility] Rajeev Jennings [facility] [address] Mariana Bravo LPN 09/28/2024 Telephone [facility] Rajeev JAMESN [address] [place] [address] [place] [address] Tran Gomez PA 09/27/2024 10:30 AM EDT Routine [facility] Rajeev [place] [address] Tran Gomez PA Second trimester ([facility]); 25 weeks gestation of ([facility]); STD exposure; Well woman exam with routine gynecological exam; Diabetes mellitus screening 09/27/2024 Clinisync Result Encounter [facility]OMS External Department Unsolicited Tran Gomez PA 09/27/2024 External Result Encounter NOMS External Department Unsolicited Tran Gomez PA 09/26/2024 Clinisync Result Encounter [facility]OMS External Department Unsolicited Rosalva Welsh DO from Last 3 Months Family History Medical [...] 1.9 oz) 12/21/2024 11:35 AM EDT Height 165.1 cm (5' 5 ) 08/03/2023 10:00 AM EDT Body Mass Index 29.64 08/03/2023 10:00 AM EDT Plan of Treatment Upcoming Encounters Date Type Department Care Team (Late st Contact Info) Description 12/26/2024 9:10 AM EDT Routine [facility] Rajeev OBGYN [address] [facility] [facility] [place] [address] Khloe Garcia, SIGNAL INTEGRITY ENGINEER [address] [place] [address] Health Maintenance Due Date Last Done Comments Influenza Vaccine (#1) 2024 2, 01/20/2019, 2018, Additional history exists Goals Goal Patient Goal Type Associated Problems Recent Progress Patient-Stated? Author Reminders Care Plan OB Reminders No Open Scheduling, Background Procedures Procedure Name Priority Date/Time Associated Diagnosis Comments POCT URINALYSIS DIPSTICK Routine 12/21/2024 11:16 AM EDT Third trimester ([facility]) CULTURE, GROUP B STREP WITH SUSCEPTIBLITY Routine 12/13/2024 11:16 AM EDT Third trimester ([facility]) POCT URINALYSIS DIPSTICK Routine 12/13/2024 11:00 AM EDT 36 weeks gestation of ([facility]) Third trimester ([facility]) URINARY TRACT INFECTION (HTRX) Routine 11/17/2024 12:52 PM EDT POCT URINALYSIS DIPSTICK Routine 11/17/2024 11:35 AM EDT 32 weeks gestation of ([facility]) Third trimester ([facility]) POCT URINALYSIS DIPSTICK Routine 11/02/2024 10:22 AM EDT Third trimester ([facility]) US OB FOLLOW UP TRANSABDOMINAL APPROACH Routine 11/02/2024 10:01 AM EDT Third trimester ([facility]) Size of fetus inconsistent with dates, antepartum ([facility]) RECURRENT VAGINITIS (HTRX) Routine 10/20/2024 12:04 PM EDT GLUCOSE 1 HOUR Routine 10/20/2024 8:20 AM EDT ALL CBC WITH AUTO DIFF Routine 8:20 AM EDT RECURRENT VAGINITIS (HTRX) Routine 09/27/2024 12:14 PM EDT POCT URINALYSIS DIPSTICK Routine 09/27/2024 11:03 AM EDT Second trimester ([facility]) IGP,APTIMA HPV,AGE GDLN Routine 09/27/2024 10:45 AM EDT PAP SMEAR Routine 09/27/2024 12:00 AM EDT US OB INCOMPLETE ANATOMY 09/26/2024 10:13 AM EDT from Last 3 Months Results * (ABNORMAL) POCT urinalysis dipstick manually resulted (12/21/2024 11:16 AM EDT) Only the most recent of5 resultswithin the time period is included. Color, [...] Positive Urine 12/21/2024 11:1 6 AM EDT Rosalva Anitha DO POINT OF CARE TEST ENTER/EDIT OR DERABLES Final Result * CULTURE, GROUP B STREP WITH SUSCEPTIBLITY (12/13/2024 11:16 AM EDT) Swab 12/13/2024 11:1 6 AM EDT us Rosalva Anitha DO LAB BLOOD ORDERABLES Final Resul t EXTERNAL LAB * URINARY TRACT INFECTION (HTRX) (11/17/2024 12:52 PM EDT) ACINETOBACTER BAUMANII 0 19.961 - 24.689 ppm 11/18/2024 6:58 AM EDT [facility] ACINETOBACTER BAUMANII Not Detected 19.961 - 24.689 ppm 11/18/2024 6:58 AM EDT [facility] CITROBACTER FREUNDII 0 23.000 - 32.015 ppm 11/18/2024 6:58 AM EDT [facility] CITROBACTER FREUNDII Not Detected 23.000 - 32.015 ppm 11/18/2024 6:58 AM EDT [facility] ENTEROBACTER AEROGENES, CLOACAE 0 23.000 - 32.290 ppm 11/18/2024 6:58 AM EDT [facility] ENTEROBACTER AEROGENES, CLOACAE Not Detected 23.000 - 32.290 ppm 11/18/2024 6:58 AM EDT [facility] ENTEROCOCCUS FAECALIS, FAECIUM 0 26.000 - 33.043 ppm 11/18/2024 6:58 AM EDT [facility] ENTEROCOCCUS FAECALIS, FAECIUM Not Detected 26.000 - 33.043 ppm 11/18/2024 6:58 AM EDT [facility] ESCHERICHIA COLI 0 23.000 - 28.500 ppm 11/18/2024 6:58 AM EDT [facility] ESCHERICHIA COLI Not Detected 23.000 - 28.500 ppm 11/18/2024 6:58 AM EDT [facility] KLEBSIELLA PNEUMONIAE, OXYTOCA 0 23.000 - 31.865 ppm 11/18/2024 6:58 AM EDT [facility] KLEBSIELLA PNEUMONIAE, OXYTOCA Not Detected 23.000 - 31.865 ppm 11/18/2024 6:58 AM EDT [facility] MORGANELLA MORGANII 0 19.961 - 24.689 ppm 11/18/2024 6:58 AM EDT [facility] MORGANELLA MORGANII Not Detected 19.961 - 24.689 ppm 11/18/2024 6:58 AM EDT [facility] PROTEUS MIRABILIS, VULGARIS 0 23.000 - 28.500 ppm 11/18/2024 6:58 AM EDT [facility] PROTEUS MIRABILIS, VULGARIS Not Detected 23.000 - 28.500 ppm 11/18/2024 6:58 AM EDT [facility] PSEUDOMONAS AERUGINOSA 0 23.000 - 31.801 ppm 11/18/2024 6:58 AM EDT [facility] PSEUDOMONAS AERUGINOSA Not Detected 23.000 - 31.801 ppm 11/18/2024 6:58 AM EDT [facility] STAPHYLOCOCCUS AUREUS 0 26.000 - 31.595 ppm 11/18/2024 6:58 AM EDT [facility] STAPHYLOCOCCUS AUREUS Not Detected 26.000 - 31.595 ppm 11/18/2024 6:58 AM EDT [facility] STREPTOCOCCUS AGALACTIAE (GROUP B STREP) 0 26.000 - 32.435 ppm 11/18/2024 6:58 AM EDT [facility] STREPTOCOCCUS AGALACTIAE (GROUP B STREP) Not Detected 26.000 - 32.435 ppm 11/18/2024 6:58 AM EDT [facility] RENE ALBICANS, PARAPSILOSIS, TROPICALIS 0 23.000 - 30.347 ppm 11/18/2024 6:58 AM EDT [facility] RENE ALBICANS, PARAPSILOSIS, TROPICALIS Not Detected 23.000 - 30.347 ppm 11/18/2024 6:58 AM EDT [facility] RENE GLABRATA 0 23.000 - 31.618 ppm 11/18/2024 6:58 AM EDT [facility] RENE GLABRATA Not Detected 23.000 - 31.618 ppm 11/18/2024 6:58 AM EDT [facility] RENE KRUSEI 0 23.000 - 30.873 ppm 11/18/2024 6:58 AM EDT [facility] RENE KRUSEI Not Detected 23.000 - 30.873 ppm 11/18/2024 6:58 AM EDT [facility] SERRATIA MARCESCENS 0 23.000 - 31.581 ppm 11/18/2024 6:58 AM EDT [facility] SERRATIA MARCESCENS Not Detected 23.000 - 31.581 ppm 11/18/2024 6:58 AM EDT [facility] STREPTOCOCCUS PYOGENES (GROUP A STREP) 0 19.961 - 24.689 ppm 11/18/2024 6:58 AM EDT [facility] STREPTOCOCCUS PYOGENES (GROUP A STREP) Not Detected 19.961 - 24.689 ppm 11/18/2024 6:58 AM EDT [facility] STAPHYLOCOCCUS EPIDERMIDIS, HAEMOLYTICUS, LUGDUNENSIS, SAPROPHYTICUS (URINA 0 19.961 - 24.689 ppm 11/18/2024 6:58 AM EDT [facility] STAPHYLOCOCCUS EPIDERMIDIS, HAEMOLYTICUS, LUGDUNENSIS, SAPROPHYTICUS (URINA Not Detected 19.961 - 24.689 ppm 11/18/2024 6:58 AM EDT [facility] STAPHYLOCOCCUS EPIDERMIDIS, HAEMOLYTICUS, LUGDUNENSIS, SAPROPHYTICUS (URINA 0 19.961 - 24.689 ppm 11/18/2024 6:58 AM EDT [facility] STAPHYLOCOCCUS EPIDERMIDIS, HAEMOLYTICUS, LUGDUNENSIS, SAPROPHYTICUS (URINA Not Detected 19.961 - 24.689 ppm 11/18/2024 6:58 AM EDT [facility] Urine 11/17/2024 12:5 2 PM EDT 11/18/2024 1:25 AM EDT us Rosalva Welsh DO LAB BLOOD ORDERABLES Final Resul t [facility] [address] [place] [address] * US OB follow up transabdominal approach [...] Froilan Silva MD us Rosalva Welsh DO [facility] OB US PROCEDURES Final Resul t * (ABNORMAL) RECURRENT VAGINITIS (HTRX) (10/20/2024 12:04 PM EDT) Only the most recent of2 resultswithin the time period is included. Pathologist [facility] ATOPOBIUM VAGINAE 0 19.961 - 24.689 ppm 10/21/2024 6:55 AM EDT [facility] ATOPOBIUM VAGINAE Not Detected 19.961 - 24.689 ppm 10/21/2024 6:55 AM EDT [facility] BVAB 2,3 (BACTERIAL VAGINOSIS ASSOCIATED BACTERIA 2, 3); MOBILUNCUS SPP 27.579(A) 19.961 - 24.689 ppm 10/21/2024 6:55 AM EDT [facility] BVAB 2,3 (BACTERIAL VAGINOSIS ASSOCIATED BACTERIA 2, 3); MOBILUNCUS SPP Detected(A) 19.961 - 24.689 ppm 10/21/2024 6:55 AM EDT [facility] RENE ALBICANS, PARAPSILOSIS, TROPICALIS 0 23.000 - 30.347 ppm 10/21/2024 6:55 AM EDT [facility] RENE ALBICANS, PARAPSILOSIS, TROPICALIS Not Detected 23.000 - 30.347 ppm 10/21/2024 6:55 AM EDT [facility] RENE GLABRATA 0 23.000 - 31.618 ppm 10/21/2024 6:55 AM EDT [facility] RENE GLABRATA Not Detected 23.000 - 31.618 ppm 10/21/2024 6:55 AM EDT [facility] RENE KRUSEI 0 23.000 - 30.873 ppm 10/21/2024 6:55 AM EDT [facility] RENE KRUSEI Not Detected 23.000 - 30.873 ppm 10/21/2024 6:55 AM EDT [facility] CHLAMYDIA TRACHOMATIS 0 23.000 - 31.586 ppm 10/21/2024 6:55 AM EDT [facility] CHLAMYDIA TRACHOMATIS Not Detected 23.000 - 31.586 ppm 10/21/2024 6:55 AM EDT [facility] GARDNERELLA VAGINALIS 0 19.961 - 24.689 ppm 10/21/2024 6:55 AM EDT [facility] GARDNERELLA VAGINALIS Not Detected 19.961 - 24.689 ppm 10/21/2024 6:55 AM EDT [facility] MEGASPHAERA (TYPES 1, 2) 0 19.961 - 24.689 ppm 10/21/2024 6:55 AM EDT [facility] ROBERTSPHAERA (TYPES 1, 2) Not Detected 19.961 - 24.689 ppm 10/21/2024 6:55 AM EDT [facility] NEISSERIA GONORRHOEAE 0 23.000 - 32.587 ppm 10/21/2024 6:55 AM EDT [facility] NEISSERIA GONORRHOEAE Not Detected 23.000 - 32.587 ppm 10/21/2024 6:55 AM EDT [facility] TRICHOMONAS VAGINALIS 0 23.000 - 31.995 ppm 10/21/2024 6:55 AM EDT [facility] TRICHOMONAS VAGINALIS Not Detected 23.000 - 31.995 ppm 10/21/2024 6:55 AM EDT [facility] MYCOPLASMA GENITALIUM 0 19.961 - 24.689 ppm 10/21/2024 6:55 AM EDT [facility] MYCOPLASMA GENITALIUM Not Detected 19.961 - 24.689 ppm 10/21/2024 6:55 AM EDT [facility] Tissue 10/20/2024 12:0 4 PM EDT 10/21/2024 2:32 AM EDT Rosalva Welsh DO LAB BLOOD ORDERABLES Final Resul t [facility] [address] [place] [address] * GLUCOSE 1 HOUR (10/20/2024 8:20 AM EDT) GLUCOSE 1 HOUR 119 <130 mg/dL [facility] 10/20/2024 8:20 AM EDT 10/20/2024 8:22 AM EDT Narrative [facility] - 10/20/2024 9:06 AM EDT [facility] LAB BLOOD ORDERABLES Final Resul t [facility] * (ABNORMAL) ALL CBC WITH AUTO DIFF (10/20/2024 8:20 AM EDT) Pathologist [facility] TB WBC 10.0 4.0 - 11.0 10 3/uL [facility] TB RBC 3.87(L) 4.20 - 5.40 10 6/uL [facility] HGB 12.2 12.0 - 16.0 g/dL TB TB HCT 35.7(L) 36.0 - 48.0 % [facility] TB MCV 92.2 81.0 - 99.0 fL TBH TBH MCH 31.5 26.7 - 34.0 pg TBH TBH MCHC 34.2 29.9 - 35.2 g/dL TB [facility] RDW 12.3 11.0 - 15.0 % [...] CLINISYNC - 10/20/2024 8:57 AM EDT [facility] Final Result TISHA TB * IGP,APTIMA HPV,AGE GDLN (09/27/2024 10:45 AM EDT) AGE GDLN ACOG TESTING Note . [facility] Comment: TESTS RESULT FLAG UNITS REF RANGE LAB Clinician Provided Cytology Information Source.............Vagina No. of containers..01 ThinPrep Vial Age Algo ACOG Lorena... FLAG LEGEND: L-Low Normal,H-High Normal,LL-Alert Low,HH-Alert High <-Panic Low,>-Panic High,A-Abnormal,AA-Critical Abnormal Performed at: 01 =G [facility] [address] [place] [address] Leia Carbajal MD, IGP, RFX APTIMA HPV ASCU Note . [facility] Comment: TESTS RESULT FLAG UNITS REF RANGE LAB DIAGNOSIS: 02 NEGATIVE FOR INTRAEPITHELIAL LESION OR MALIGNANCY. Specimen adequacy: 02 Satisfactory for evaluation. Performed by: 02 Alicia Hanson, Research Instrumentation Technician ([facility]) . 02 Note: Note 03 The [...] High,A-Abnormal,AA-Critical Abnormal Performed at: 02 [facility] [address] [place] [address] Carter Hall MD, 03 WB [facility] [place] [address] [facility] [address] Leia Carbajal MD, Performed at: =G - [facility] [address] [place], [place] [id number] Cable Mechanic: Leia Carbajal MD, Phone: [phone] Performed at: [facility] [address] [place] [id number] Cable Mechanic: Carter Hall MD, Phone: [phone] 09/27/2024 10:4 5 AM EDT 09/27/2024 8:41 PM EDT Narrative [facility] - 10/03/2024 3:08 PM EDT SPATULA-ALONE VAGINA [facility] LAB BLOOD ORDERABLES Final Resul t Performing Organization Address City/[facility]/ZIP Co de Phone Number [facility] * Pap Smear (09/27/2024 12:00 AM EDT) Swab Cervical swab / Unknown us [facility] CYTOLOGY ORDERABLES Final Re sult Performing Organization Address City/[facility]/ZIP Co de Phone Number EXTERNAL LAB * US OB INCOMPLETE ANATOMY (09/26/2024 10:13 AM EDT) Anatomical Region Laterality Modality Other 09/26/2024 10:1 3 AM EDT Narrative 09/26/2024 10:16 AM EDT [address] [address] Ultrasound Report Signed Patient: LOYDA ADAME MR#: [id number] : 2000 Acct:[id number] Age/Sex: 24 / F ADM Date: 09/26/24 Loc: US Attending Dr: Rosalva Welsh D.O. Ordering Physician: Rosalva Welsh D.O. Date of Service: 09/26/24 Procedure(s): US OB incomplete anatomy Accession Number(s): [id number] cc: Rosalva Welsh D.O.; Shaw Jorgensen M.D. [address] [place] [address] Patient Name: LOYDA ADAME MRN: [id number] date: 2000 Sex: F Assigned Patient Location: US Current Patient Location: US Accession/Order Number: [id number] Exam Date: 09/26/2024 10:11 Report Date: 09/26/2024 [...] Boyd M.D. 09/26/2024 10:13 AM Dictation Location: [place] [address] Electronically authenticated by: [id number] Y Date: 09/26/2024 10:13 Dictated By: Gina Body M.D. Signed By: 09/26/24 1016 DD/ 1013 TD/TT: Solar Manufacturer'S Representative: Procedure Note Radiology, Radiologist, MD - 09/26/2024 [place] [address] Ultrasound Report Signed Patient: LOYDA ADAME CMR#: [id number] : 2000Acct:[id number] Age/Sex: 24 / FADM Date: 09/26/24 Loc: US Attending Dr: Rosalva Welsh D.O. Ordering Physician: Rosalva Welsh D.O. Date of Service: 09/26/24 Procedure(s): US OB incomplete anatomy Accession Number(s): [id number] cc: Rosalva Welsh D.O.; Shaw Jorgensen M.D. The [place] [id number] Patient Name: LOYDA ADAME MRN: [id number] date: 2000 Sex: F Assigned Patient Location: US Current Patient Location: US Accession/Order Number: [id number] Exam Date: 09/26/2024 10:11 Report Date: 09/26/2024 [...] Boyd M.D. 09/26/2024 10:13 AM Dictation Location: [place] [address] Electronically authenticated by: [id number] Y Date: 0:13 Dictated By: Gina Boyd M.D. Signed By:09/26/24 1016 DD/ 1013 TD/TT: Solar Manufacturer'S Representative: Rosalva Welsh DO [facility] IMAGING Final Result from Last 3 Months Additional Health Concerns Active Problems Noted Date Diagnosed Date OB Reminders 09/20/2024 Insurance [employer] Care Teams Ciso Relationship Specialty Start Date End Date Shaw Jorgensen MD [address] [place] [address] PCP - General Family Medicine 09/03/22
--- OUTSIDE RECORDS SUMMARY | 2024-12-24 14:29 | XMS_ITS | Encounter Summary ---
Author Organization [facility] Address [address] [place] [address] Care Team Providers Care Epic Specialist Name Role Phone Shaw Jorgensen MD Primary Care Provider [phone] Encounter Details Date Type Department Care Team (Late st Contact Info) Description 08/30/2024 Abstract [facility] OBBETZY [address] [place] [address] Aden Welhs DO [address] [place] [address] Social History Tobacco Use Types Packs/Day Years [...] AM EDT Routine [facility] OBGYN [address] [place] [address] Khloe Garcia, TEMPERING OVEN OPERATOR [address] [place] [address] documented as of this encounter Visit Diagnoses Not on filedocumented in this encounter Care Teams Epic Specialist Relationship Specialty Start Date End Date Shaw Jorgensen MD [address] [facility] [place] [address] PCP - General Family Medicine 09/03/22 documented as of this encounter
--- OUTSIDE RECORDS SUMMARY | 2024-12-24 14:29 | XMS_ITS | Encounter Summary ---
Author Organization [facility] Address [address] [place] [address] Care Team Providers Care Datapower Consultant Name Role Phone Shaw Jorgensen MD Primary Care Provider [phone] Encounter Details Date Type Department Care Team (Late st Contact Info) Description 08/16/2024 Abstract [facility] OBBETZY [address] [place] [address] dAen Welsh DO [address] [place] [address] Social History Tobacco Use Types Packs/Day Years [...] AM EDT Routine [facility] [address] [facility] [address] [place] [address] Khloe Garcia, BREAD PAN GREASER [address] [place] [address] documented as of this encounter Visit Diagnoses Not on filedocumented in this encounter Care Teams Datapower Consultant Relationship Specialty Start Date End Date Shaw Jorgensen MD [address] [facility] [place] [address] PCP - General Family Medicine 09/03/22 documented as of this encounter
--- OUTSIDE RECORDS SUMMARY | 2024-12-24 14:29 | XMS_ITS | Encounter Summary ---
Author Organization [facility] Address [address] [place] [address] Care Team Providers Care Mine Exploration Engineer Name Role Phone Shaw Jorgensen MD Primary Care Provider [phone] Encounter Details Date Type Department Care Team (Late st Contact Info) Description 10/05/2024 Orders Only [facility] [address] [facility] [place] [address] Mariana Bravo LPN [address] [place] [address] Social History Tobacco Use Types [...] AM EDT Routine [facility] [address] [place] [phone] Khloe Garcia, CONSULTING SOFTWARE ENGINEER [address] [place] [phone] documented as of this encounter Goals Goal [...] documented as of this encounter Care Teams Mine Exploration Engineer Relationship Specialty Start Date End Date Shaw Jorgensen MD [address] [facility] [place] [address] PCP - General Family Medicine 09/03/22 documented as of this encounter
--- OUTSIDE RECORDS SUMMARY | 2024-12-24 14:29 | XMS_ITS | Patient Health Record ---
Author Organization [facility] Address [address] [place] [address] Care Team Providers Care Surgical Endoscopist Name Role Phone Usman Jorgensen Primary Care Provider Jeanine Pablo Unavailable [phone] Allergies No Known Allergies Results Component Value Reference Range Notes COVID-19, Flu A+B IH Reviewed date:08/05/2024 01:06:37 PM Interpretation: Performing Lab: Notes/Report: COVID - FLU A - FLU B - Control + PREG QUANT HCG Reviewed date:05/31/2024 03:52:35 PM Interpretation: Performing Lab: Notes/Report: [facility] , HCG Quantitative 62159 15,000-200,000 6-8 WEEKS 10,000-100,000 5-6 WEEKS 5-50 0.2-1 WEEK 10,000-100,000 2-3 MONTHS 50-500 1-2 WEEKS 1,000-50,000 4-5 WEEKS 100-5,000 2-3 WEEKS 500-10,000 3-4 WEEKS Performing Lab: see note ML - [facility] LB CBC AUTO DIFF Reviewed date:01/14/2024 12:59:57 PM Interpretation: Performing Lab: Notes/Report: [facility] , White Blood Count 7.7 4.0-11.0 10 [...] 3/uL Performing Lab: see note ML - [facility] LB LIVER PROFILE Reviewed date:04/21/2024 05:35:33 PM Interpretation: Performing Lab: Notes/Report: [facility] , Bilirubin Total 0.4 0.2-1.0 mg/dL Bilirubin Direct 0.1 0.0-0.2 mg/dL Aspartate Amino Transferase 10 15-37 U/L Alanine Aminotransferase 14 14-59 U/L Alkaline Phosphatase 69 46-116 U/L Total Protein 6.9 6.4-8.2 g/dL Albumin Level 3.3 3.4-5.0 g/dL Globulin 3.6 Albumin Globulin Ratio 0.9 Performing Lab: see note - [facility] LB PROF CHEM 8 (BAS METB) Reviewed date:04/21/2024 05:35:33 PM Interpretation: Performing Lab: Notes/Report: [facility] , Sodium 138 136-145 mmol/L Potassium 3.8 3.5-5.1 mmol/L Chloride 103 98-107 mmol/L Carbon Dioxide 25.3 21.0-32.0 mmol/L Anion Gap 13.5 Glucose 81 74-106 mg/dL Blood Urea Nitrogen 16.0 7.0-18.0 mg/dL Creatinine 0.87 0.55-1.02 mg/dL Estimated GFR ( Kourtney >60 >=60 mL/min/1.73m 2 Estimated GFR (Non- Patsy >60 >=60 mL/min/1.73m 2 BUN Creatinine Ratio 18.4 Calcium 8.5 8.5-10.1 mg/dL Performing Lab: see note [facility] LB RUBELLA AB IGG Reviewed date:08/07/2024 06:03:37 PM Interpretation: Performing Lab: Notes/Report: [facility] , Rubella Antibodies, IgG 2.66 Immune > 0.99 index Non-immune <0.90 Patient Registration Clerk: Fer Turpin PhD, Phone: [phone] Immune >0.99 Equivocal 0.90 - 0.[address] [place] [phone] Performed at: [facility] Performing Lab: see note [facility] HIV Ab/p24 Ag with Reflex Reviewed date:08/07/2024 06:03:37 PM Interpretation: Performing Lab: Notes/Report: [facility] , HIV Ab/p24 Ag Screen Non Reactive Non Reactive HIV Negative [address] [place] [phone] Patient Registration Clerk: Fer Turpin PhD, Phone: [phone] HIV-1/HIV-2 antibodies and HIV-1 p24 antigen were NOT detected. There is no laboratory evidence of HIV infection. Performed at: [facility] Performing Lab: see note [facility] LB AFP, Serum, Open Spina Bifid a Reviewed date:08/08/2024 08:42:34 PM Interpretation: Performing Lab: Notes/Report: N N ULTRASOUND [id number] 3 17 N 1 Y 156 N [...] Negative Services to discuss available options. The [place]ian This result is screen negative for OSB. The AFP MoM Comment: Comment . IDD 2.0 Twins 4.5 Director This test was developed and its performance characteristics Multiples Of Median Cutoffs Performed at: [facility] For AFP Elevations [address] [place], [place] [id number] Abbreviation Definitions For further inquiries contact [facility] IDD - Insulin Dep Diabetes determined by [facility]. It has not been cleared or approved References: Available Upon Request. by the Food and Drug Administration. [facility] - Open Spina Bifida Risk Genetics Services at 3-906-843-GENE. Marin 2.5 Black 2.8 Radha Bautista, Ph.D., [facility] Patient Registration Clerk: Amado Tinoco [facility], Phone: [phone] Performing Lab: see note [facility] [employer] ALFONZO HCV Antibody RFX to Quant PC R Reviewed date:08/07/2024 06:03:37 PM Interpretation: Performing Lab: Notes/Report: [facility] HCV Ab Non Reactive Non Reactive Interpretation: Comment . infection. Performed at: [facility] Not infected with HCV unless early or acute infection is [address] [place] [phone] Patient Registration Clerk: Fer Turpin PhD, Phone: [phone] individual), or other evidence exists to indicate HCV suspected (which may be delayed in an immunocompromised Performing Lab: see note [facility] [employer] LB DRUG SCREEN RAPID (URINE) Reviewed date:08/08/2024 08:42:34 PM Interpretation: Performing Lab: Notes/Report: [facility] , Cannabinoid Screen Urine NEGATIVE NEGATIVE Phencyclidine [...] see note ML - [facility] US OB incomplete anatomy Reviewed date:09/26/2024 09:11:43 PM Interpretation: Performing Lab: Notes/Report: Source Facility: [place] [address] Ultrasound Report Signed Patient: LOYDA ADAME MR#: [id number] : 2000 Acct:[id number] Age/Sex: 24 / F ADM Date: 09/26/24 Loc: US Attending Dr: Rosalva Welsh D.O. Ordering Physician: Rosalva Welsh D.O. Date of Service: 09/26/24 Procedure(s): US OB incomplete anatomy Accession Number(s): [id number] cc: Rosalva Welsh D.O.; Bharti Jorgensen M.D. [place] [address] Patient Name: LOYDA ADAME MRN: [id number] date: 2000 Sex: F Assigned Patient Location: Current Patient Location: US Accession/Order Number: [id number] Exam Date: 09/26/2024 10:11 Report Date: 09/26/2024 [...] Boyd M.D. 09/26/2024 10:13 AM Dictation Location: [employer] Electronically authenticated by: [id number] Y Date: 09/26/2024 10:13 Dictated By: Gina Boyd M.D. Signed By: 09/26/24 1016 DD/ 1013 TD/TT: Labourers: Eleazar SCHROEDER,Age Gdln Reviewed date:10/03/2024 08:08:31 PM Interpretation: Performing Lab: Notes/Report: SPATULA-ALONE VAGINA [facility] , Age Gdln ACOG Testing Note . 01 =G Labcodeborah Kumar Source.............Vagin a L-Low Normal,H-High Normal,LL-Alert Low,HH-Alert High Leia Carbajal MD, Performed at: TESTS RESULT FLAG UNITS REF RANGE LAB Age Algo ACOG Lorena... 21- 01 FLAG LEGEND: [address] [place] [address] Clinician Provided Cytology Information <-Panic Low,>-Panic High,A-Abnormal,AA-Criti dulce Abnormal No. of containers..01 ThinPrep Vial IGP, rfx Aptima HPV ASCU Note . Satisfactory for evaluation. Carter Hall MD, The HPV DNA reflex criteria were not met with this specimen The Pap smear is a screening test designed to aid in the L-Low Normal,H-High Normal,LL-Alert Low,HH-Alert High Note: Note [address] [facility] [place] [address] 03 [facility] José Performed by: Patient Registration Clerk: Leia Crabajal MD, Phone: [phone] occur. Alicia Hanson, Hand Paster ([facility]) detection of premalignant and malignant conditions of the uterine cervix. It is not a diagnostic procedure and Performed at: =[facility] . [address] [place] [address] [address] [place], [place] [phone] Patient Registration Clerk: Carter Hall MD, Phone: [phone] Test Methodology: Note 03 [address] [place], [place] [phone] TESTS RESULT FLAG UNITS REF RANGE LAB cancer. Both false-positive and false-negative reports do result therefore, no HPV testing was performed. <-Panic Low,>-Panic High,A-Abnormal,AA-Criti dulce Abnormal This liquid based ThinPrep(R) pap test was screened with FLAG LEGEND: Leia Carbajal MD, the use of an image guided system. Performed at: Performed at: [facility] Cyto Histo Specimen adequacy: 02 NEGATIVE FOR INTRAEPITHELIAL LESION OR MALIGNANCY. . 02 [facility] Cyto Histo DIAGNOSIS: 02 should not be used as the sole means of detecting cervical Performing Lab: see note - [facility] LB CBC AUTO DIFF Reviewed date:10/20/2024 09:08:07 AM Interpretation: Performing Lab: Notes/Report: [facility] , White Blood Count 10.0 4.0-11.0 10 [...] Performing Lab: see note ML - [facility] LB Strep Gp B Culture+Rflx Reviewed date:12/18/2024 06:32:20 PM Interpretation: Performing Lab: Notes/Report: [facility] , Strep Gp B Culture+Rflx See Below For Report Strep Gp B Culture+Rflx Strep Gp B Culture+Rflx Negative Strep Gp B Culture+Rflx Strep Gp B Culture+Rflx Centers for Dise ase Control and Prevention (CDC) and Strep Gp B Culture+Rflx Strep Gp B Culture+Rflx [place] [facility] Strep Gp B Culture+Rflx Strep Gp B Culture+Rflx (ACOG) guideline s for prevention of group B Strep Gp B Culture+Rflx Strep Gp B Culture+Rflx streptococcal (G BS) disease specify co-collection of Strep Gp B Culture+Rflx Strep Gp B Culture+Rflx a vaginal and re ctal swab specimen to maximize Strep Gp B Culture+Rflx Strep Gp B Culture+Rflx sensitivity of G BS detection. Per the CDC and ACOG, Strep Gp B Culture+Rflx Strep Gp B Culture+Rflx swabbing both th e lower vagina and rectum Strep Gp B Culture+Rflx Strep Gp B Culture+Rflx substantially increases the yield of detection Strep Gp B Culture+Rflx Strep Gp B Culture+Rflx compared with sampling the vagina alone. Strep Gp B Culture+Rflx Strep Gp B Culture+Rflx Penicillin G, ampicillin, or cefazolin are indicated Strep Gp B Culture+Rflx Strep Gp B Culture+Rflx for intrapartum prophylaxis of GBS Strep Gp B Culture+Rflx Strep Gp B Culture+Rflx colonization. Re flex susceptibility testing should be Strep Gp B Culture+Rflx Strep Gp B Culture+Rflx performed prior to use of clindamycin only on GBS Strep Gp B Culture+Rflx Strep Gp B Culture+Rflx isolates from penicillin-allergic women who are Strep Gp B Culture+Rflx Strep Gp B Culture+Rflx considered a hig h risk for anaphylaxis. Treatment with Strep Gp B Culture+Rflx Strep Gp B Culture+Rflx vancomycin witho ut additional testing is warranted if Strep Gp B Culture+Rflx Strep Gp B Culture+Rflx resistance to clindamycin is noted. Strep Gp B Culture+Rflx Strep Gp B Culture+Rflx Performed at: CB - [facility] [place] Strep Gp B Culture+Rflx Strep Gp B Culture+Rflx [address] [place], [place] [phone] Strep Gp B Culture+Rflx Strep Gp B Culture+Rflx Patient Registration Clerk: Tricia Turpin PhD, Phone: [phone] Strep Gp B Culture+Rflx Performing Lab: see note - [facility] LB SEE REPORT - Receiving Operator Id information not found for OBX-specific national investigative producer legend Glucose 1 Hour Reviewed date:10/20/2024 10:11:43 AM Interpretation: Performing Lab: Notes/Report: [facility] , Glucose 1 Hour 119 <130 mg/dL Performing Lab: see note [facility] LB Urine Culture, Routine Reviewed date:08/09/2024 09:15:03 [...] Culture, Routine Urine Culture, Routine Performed at: [facility] Urine Culture, Routine Urine Culture, Routine [address] [place] [phone] Urine Culture, Routine Urine Culture, Routine Patient Registration Clerk: Iban Turpin PhD, Phone: [phone] Urine Culture, Routine Performing Lab: see note [facility] LB SEE REPORT - Receiving Operator Id information not found for OBX-specific national investigative producer legend Box Test Reviewed date:08/07/2024 06:03:37 PM Interpretation: Performing Lab: Notes/Report: [facility] , BOX Test Sent Out [facility] Test Reference Lab [facility] Test Date Sent 08/05/24 Performing Lab: see note - [facility] LB HBsAg Screen Reviewed date:08/07/2024 06:03:37 PM Interpretation: Performing Lab: Notes/Report: [facility] , HBsAg Screen Negative Negative Patient Registration Clerk: Fer Turpin PhD, Phone: [phone] Performed at: [facility] [address] [place], [place] [phone] Performing Lab: see note [facility] LB Rapid Plasma Reagin, Quant Reviewed date:08/07/2024 06:03:37 PM Interpretation: Performing Lab: Notes/Report: [facility] , Rapid Plasma Reagin, Quant Non Reactive NonRea<1:1 titer [address] [place], [place] [phone] screening and diagnosis of syphilis. This test is Performed at: [facility] RPR and Confirmatory Treponema pallidum Antibodies infection, a reflex cascade that includes both RPR and a Treponema pallidum (Syphilis) Screening [place] (266839) or Rapid Plasma Reagin (RPR) Test With Reflex to Quantitative (041155). intended for following treatment response in patients being treated for syphilis infection. To screen for syphilis treponema-specific assay should be utilized, such as Please Note: This test does not meet current guidelines for Patient Registration Clerk: Fer Turpin PhD, Phone: [phone] Performing Lab: see note - [facility] LB Type and Screen Reviewed date:08/07/2024 06:03:37 PM Interpretation: Performing Lab: Notes/Report: [facility] , Blood Type A Positive Antibody Screen NEGATIVE GLYCOHEMOGLOBIN A1C Reviewed date:08/07/2024 06:03:37 PM Interpretation: Performing Lab: Notes/Report: [facility] , Glycohemoglobin A1C 4.7 4.5-6.2 % ADA THERAPEUTIC TARGET < 7.0 ACTION SUGGESTED ADA RECOMMENDED LIMIT 4.0 - 6.0 > 7.0 Estimated Average Glucose 88 Performing Lab: see note ML - [facility] LB CBC AUTO DIFF Reviewed date:08/05/2024 01:06:37 PM Interpretation: Performing Lab: Notes/Report: [facility] , White Blood Count 8.1 4.0-11.0 10 [...] 10 3/uL Performing Lab: see note - [facility] HCG Qualitative* Reviewed date:05/04/2024 07:51:54 AM Interpretation: Performing Lab: Notes/Report: The [facility] HCG Qualitative POSITIVE NEGATIVE Performing Lab: see note - [facility] LB PREG QUANT HCG Reviewed date:05/04/2024 12:27:10 PM Interpretation: Performing Lab: Notes/Report: [facility] , HCG Quantitative 205 50-500 1-2 WEEKS 100-5,000 2-3 WEEKS 1,000-50,000 4-5 WEEKS 5-50 0.2-1 WEEK 10,000-100,000 5-6 WEEKS 10,000-100,000 2-3 MONTHS 15,000-200,000 6-8 WEEKS 500-10,000 3-4 WEEKS Performing Lab: see note - [facility] LB CBC AUTO DIFF Reviewed date:04/21/2024 05:35:33 PM Interpretation: Performing Lab: Notes/Report: [facility] , White Blood Count 6.1 4.0-11.0 10 [...] see note ML - [facility] US right upper quadrant Reviewed date:03/30/2024 03:20:05 PM Interpretation: Performing Lab: Notes/Report: Source Facility: [place] [address] [place] [address] Ultrasound Report Signed Patient: LOYDA ADAME MR#: [id number] : 2000 Acct:[id number] Age/Sex: 24 / F ADM Date: 03/29/24 Loc: US Attending Dr: Bharti Jorgensen M.D. Ordering Physician: Bharti Jorgensen M.D. Date of Service: 03/29/24 Procedure(s): US right upper quadrant Accession Number(s): [id number] cc: Bharti Jorgensen M.D. [place] [address] Patient Name: LOYDA ADAME MRN: [id number] date: 2000 Sex: F Assigned Patient Location: US Current Patient Location: US Accession/Order Number: [id number] Exam Date: 03/29/2024 06:59 Report Date: 03/29/2024 [...] Foreman M.D. Signed By: 03/29/2447 DD/ TD/TT: Labourers: Reason For Referral Reason gallstone Diagnosis 1 Right upper quadrant abdominal pain (R10.11) Referral Organization [facility] Referring Provider First Name Usman Referring Provider Last Name Jameel Referring Provider Speciality Family Med leonardo Referred Provider Israel Dugan Referred Provider [...] Status Risk Notes Problem Cholelithiasis without obstruction (68835776) Calculus of gallbladder without cholecystitis without obstruction (K80.20) Active confirmed Problem Orthostatic hypotension (74695630) Orthostatic hypotension (I95.1) Active confirmed Problem Depression (257993177) Depression (F32.9) Active confirmed Problem Attention deficit disorder (24779328) ADD (attention deficit disorder) (F90.0) Active confirmed Problem Insomnia (528601728) Insomnia (G47.00) Active confirmed Problem Alopecia (45005947) Hair loss (L65.9) Active co nfirmed Problem Scoliosis (605402419) Scoliosis (M41.9) Active confirmed Problem Right upper quadrant pain (042621640) Right upper quadrant abdominal pain (R10.11) Active confirmed Problem Overweight (099594835) Over weight (E66.3) Active confirmed Problem Seasonal allergic rhinitis (011168715) Allergic rhinitis, seasonal (J30.2) Active confirmed Problem Menometrorrhagia (949104668) Menometrorrhagia (N92.1) Active confirmed Problem Peripheral vertigo (65645727) Vertigo, peripheral (H81.399) Active confirmed Problem COVID-19 (409745968) COVID-19 (U07.1) Active confirmed Vital Signs Temperature 98.1 degrees Fahrenheit 05/31/2024 Blood pressure diastolic 62 mm Hg 05/31/2024 Height 65 in 05/31/2024 Blood pressure systolic 108 mm Hg 05/31/2024 Weight 161 lbs 05/31/2024 BMI 26.79 kg/m2 05/31/2024 Encounters Encounter Location Date Provider Diagnosis [facility] [address] [place] [address] 05/04/2024 Usman manuel [facility] [address] [place] [address] 05/31/2024 Jeanine Pablo [facility] [address] [place] [address] [facility] [address] [place] [address] 03/30/2024 Usman Jorgensen [facility] [address] [place] [address] 03/24/2024 Usman Jorgensen Right upper quadrant abdominal pain R10.11 [place] [address] [place] [address] 05/31/2024 Jeanine Pablo Cough R05.9 ; URI [...] Date [employer] [place] [employer] [address] [place] [address] [id number] Loyda Adame Self - patient is the insured Medical (General) History Medical History History ICD Code Over weight E66.3 Depression F32.9 Allergic rhinitis, seasonal J30.2 Vertigo, peripheral H81.399 COVID-19 U07.1 Orthostatic hypotension I95.1 Menometrorrhagia N92.1 Insomnia G47.00 Scoliosis M41.9 ADD (attention deficit disorder) F90.0 Surgical History Surgery Date(Month/Year) Laproscopy 09/2021
--- OUTSIDE RECORDS SUMMARY | 2024-12-24 14:29 | XMS_ITS | Encounter Summary ---
Author Organization [facility] Address [address] [place] [address] Care Team Providers Care Enginehouse Brakeman Name Role Phone Shaw Jorgensen MD Primary Care Provider [phone] Encounter Details Date Type Department Care Team (Late st Contact Info) Description 12/21/2024 Bamboo flowsheet [facility] [address] [place] [address] Aden Welsh DO [address] [place] [address] Social History Tobacco Use Types Packs/Day Years [...] [facility] [place] [phone] Khloe Garcia, LUMBER STACKER DRIVER [address] [place] [phone] documented as of this encounter Goals Goal Patient Goal Type Associated Problems Recent Progress Patient-Stated? Author Reminders Care Plan OB Reminders No Open Scheduling, Background documented as of this encounter Visit Diagnoses Not on filedocumented in this encounter Additional Health Concerns Active Problems Noted Date Diagnosed Date OB Reminders 09/20/2024 documented as of this encounter Care Teams Enginehouse Brakeman Relationship Specialty Start Date End Date Shaw Jorgensen MD [address] [facility] [place] [address] PCP - General Family Medicine 09/03/22 documented as of this encounter
--- OUTSIDE RECORDS SUMMARY | 2024-12-24 14:29 | XMS_ITS | Encounter Summary ---
Author Organization [facility] Address [address] [place] [address] Care Team Providers Care Correspondence Review Clerk Name Role Phone Shaw Jorgensen MD Primary Care Provider [phone] Encounter Details Date Type Department Care Team (Late st Contact Info) Description 09/01/2024 Abstract [facility] [address] [place] [address] Aden Welsh DO [address] [place] [address] Social History Tobacco Use Types Packs/Day Years [...] AM EDT Routine [facility] [address] [place] [address] Khloe Garcia, MOTOR COACH OPERATOR [address] [place] [address] documented as of this encounter Visit Diagnoses Not on filedocumented in this encounter Care Teams Correspondence Review Clerk Relationship Specialty Start Date End Date Shaw Jorgensen MD [address] [place] [facility] [place] [address] PCP - General Family Medicine 09/03/22 documented as of this encounter
--- NOTE | 2024-12-24 15:07 | PM.OBHP ---
OB - H&P: HPI History of Present Illness Chief complaint: R/O RUPTURE : 3 Para: 0 Date of last menstrual period: unknown Gestational age based on last menstrual period: 37w4d based on ultrasound Narrative: 24yo A2 with JAN 01/10/25 @ 37w4d presents with leaking amniotic fluid which she stated started around 3 AM today. She states she started having contractions around 8 AM which have been consistently getting stronger. She is still leaking fluid on arrival. Her contractions are quite strong. She would like to use IV pain medicine but will consider an epidural if the pain is too intense. She did have chlamydia early on, but it was treated and a test of cure was negative. She has continued to take medicine for depression throughout her . History of Present Dating criteria: LMP confirmed by 2nd trimester US care: good care Ultrasounds: normal mid trimester US Abnormal ultrasound findings: right ventricle outflow tract was not seen at 17 week anatomy ultrasound but was seen on ultrasound a month later complications comment: previous miscarriage x 2 Medical complications OB: none Labs Blood type: A (+) positive Rubella: immune RPR/VDLR: nonreactive GBS status: negative HBsAG: negative Narrative: Hep C neg Hgb A1C= 4.7 HIV neg 1 hr glucola= 119 Review of Systems ROS Status of ROS: 10 or more systems reviewed and unremarkable except as noted in history and below [facility] Medical History (Updated 12/24/24 @ 14:58 by JOSSY YOON MD) Nausea & vomiting ?R11.2 - Nausea with vomiting, unspecified (ICD-10) History of spontaneous ?Z87.59 - Personal history of other complications of , childbirth and the puerperium (ICD-10) Headache ?R51.9 - Headache, unspecified (ICD-10) Toothache ?K08.89 - Other specified disorders of teeth and supporting structures (ICD-10) Anemia ?D64.9 - Anemia, unspecified (ICD-10) PTSD (post-traumatic stress disorder) ?F43.10 - Post-traumatic stress disorder, unspecified (ICD-10) Panic attacks ?F41.0 - Panic disorder [episodic paroxysmal anxiety] (ICD-10) Anxiety ?F41.9 - Anxiety disorder, unspecified (ICD-10) Restless leg ?G25.81 - Restless legs syndrome (ICD-10) Migraine ?G43.909 - Migraine, unspecified, not intractable, without status migrainosus (ICD-10) Seasonal allergic rhinitis ?J30.2 - Other seasonal allergic rhinitis (ICD-10) Scoliosis ?M41.9 - Scoliosis, unspecified (ICD-10) Insomnia ?G47.00 - Insomnia, unspecified (ICD-10) Depression ?F32.A - Depression, unspecified (ICD-10) Alopecia ?L65.9 - Nonscarring hair loss, unspecified (ICD-10) Attention deficit disorder ?F98.8 - Other specified behavioral and emotional disorders with onset usually occurring in childhood and adolescence (ICD-10) Surgical History (Updated 12/24/24 @ 15:44 by JOSSY YOON MD) History of tonsillectomy and adenoidectomy ?Z90.89 - Acquired absence of other organs (ICD-10) H/O foot surgery ?Z98.890 - Other specified postprocedural states (ICD-10) H/O laparoscopy ?Z98.890 - Other specified postprocedural states (ICD-10) Family History Other Family history of DVT Family history of breast cancer Family history of heart disease Family history of ovarian cancer Family history of pulmonary embolism Family history of skin cancer Family history of uterine cancer Social History (Updated 12/24/24 @ 15:45 by JOSSY YOON MD) Within the past year, how often did you have a drink containing alcohol: never Score interpretation: A score less than 3 is consistent with normal alcohol consumption. Smoking status: Never smoker Non-prescribed substance use: denies use Previous occupational history: Unemployed Highest level of school completed/degree received: high school graduate Gender Identity: female Meds Home Medications and Allergies Home Medications ?Medication ?Instructions ?Recorded ?Confirmed ?Type cetirizine 10 mg tablet 10 mg PO DAILY 05/25/23 12/24/24 History duloxetine 60 mg capsule,delayed 60 mg PO DAILY 05/25/23 12/24/24 History release Allergies Allergy/AdvReac Type Severity Reaction Status Date / Time No Known Drug Allergies Allergy Verified 12/24/24 15:09 Exam Constitutional Vital Signs, click to edit/add: Last Vital Signs Pulse 90 12/24/24 14:41 BP 130/80 12/24/24 14:41 FHT: 140s with accelerations, no decelerations, category 1 tracing [place]: contractions every 2 minutes Documenting provider has reviewed patient's vital signs: yes Common normals: oriented x3, healthy appearing and alert General appearance: cooperative, well kempt and well developed Orientation/consciousness: Yes awake HENMT Common normals: normocephalic Eye Common normals: EOMs intact bilaterally Neck & C-Spine Common normals: full ROM and supple Respiratory Common normals: normal respiratory effort and no retractions Cardio Common normals: regular rate and regular rhythm GI Common normals: soft to palpation (gravid) Manual OB Exam: dilated 4 cm, effaced fully, station -2 and other (AROM forebag - clear fluid) Uterus palpation: other (Vtx presentation) Amniotic Fluid: clear Back & Pelvis Common normals: no CVA tenderness Extremity Common normals: normal to inspection and no pedal edema Psych Common normals: mental status grossly normal, thought process normal and cooperative OB - A/P Assessment and Plan (1) Normal labor: Plan Pain medications as needed Expect
[2024-12-24 15:11] LABS: Cannabinoid Screen Urine NEGATIVE (NEGATIVE); Methamphetamines Screen Urine NEGATIVE (NEGATIVE)
[2024-12-24 15:12] LABS: Tricyclic Antidepressant Urine NEGATIVE (NEGATIVE)
[2024-12-24] MEDS: FENTANYL CITRATE/PF 100 MCG/2 ML VIAL 50 MCG IV ×2 (15:50→17:10)
[2024-12-24 16:30] LABS: Hematocrit 33.8 % (36.0-48.0); Hemoglobin 11.2 g/dL (12.0-16.0); Mean Corpuscular HGB Conc 33.1 g/dL (29.9-35.2); Mean Corpuscular Hemoglobin 28.7 pg (26.7-34.0); Mean Corpuscular Volume 86.7 fL (81.0-99.0); Platelet Count 249 10^3/uL (150-450); Red Blood Count 3.90 10^6/uL (4.20-5.40); White Blood Count 9.7 10^3/uL (4.0-11.0)
[2024-12-24] MEDS: OXYTOCIN/0.9 % SODIUM CHLORIDE 20 UNITS/1,000 ML PLAST..BAG 125 UNIT IV (17:34)
--- NOTE | 2024-12-24 18:12 | PM.OBPRCVD ---
Procedure Procedure: Spontaneous Vaginal Delivery and Repair of Bilateral Labial Lacerations of patient who presented in active labor with spontaneous rupture of membranes Intrapartal events: None Induction method: none Delivery monitor: external FHT, external uterine and internal FHT Route of delivery: Episiotomy Description: none L&D Laceration Description: labial (bilateral) and superficial (long on both sides) Delivery repair: Vicryl (3-0) Estimated blood loss (mL): 250 Anesthesia type: Local Disposition: floor Complications: none Delivery date: 12/24/24 Gender: male presentation: vertex Placental delivery description: Spontaneous cord description: 3 Vessels and True [place] heart rate - 1 minute: 100 bpm or Greater respiratory effort - 1 minute: Slow Respiration/Weak Cry muscle tone - 1 minute: Active Movement reflex response - 1 minute: Prompt Response color - 1 minute: Pallor or Cyanosis total score - 1 minute: 7 heart rate - 5 minute: 100 bpm or Greater respiratory effort - 5 minute: Spontaneous/Strong Cry muscle tone - 5 minute: Active Movement reflex response - 5 minute: Prompt Response color - 5 minute: Bluish Hands or Feet total score - 5 minute: 9
[2024-12-24] MEDS: LIDOCAINE HCL 1% 200 MG/20 ML MDV INJ (18:13)
[2024-12-24] MEDS: ACETAMINOPHEN 325 MG TABLET 650 MG PO (21:16)
[2024-12-25] MEDS: ACETAMINOPHEN 325 MG TABLET 650 MG PO (03:55)
[2024-12-25 07:10] LABS: Hematocrit 30.3 % (36.0-48.0); Hemoglobin 9.9 g/dL (12.0-16.0); Immature Granulocytes Abs Auto 0.07 10^3/uL (0.00-0.03); Immature Granulocytes Pct Auto 0.5 % (0.0-0.5); Lymphocytes Absolute Auto 1.7 10^3/uL (1.2-3.8); Mean Corpuscular HGB Conc 32.7 g/dL (29.9-35.2); Mean Corpuscular Hemoglobin 28.4 pg (26.7-34.0); Mean Corpuscular Volume 86.8 fL (81.0-99.0); Platelet Count 255 10^3/uL (150-450); Red Blood Count 3.49 10^6/uL (4.20-5.40); White Blood Count 14.2 10^3/uL (4.0-11.0)
[2024-12-25] MEDS: IBUPROFEN 400 MG TABLET 800 MG PO ×2 (07:47→16:00)
[2024-12-25 07:48] VITALS: BP 118/82; PULSE 114; TEMP 36.7
[2024-12-25] MEDS: DOCUSATE SODIUM 100 MG CAPSULE PO ×2 (10:25→20:29)
[2024-12-25] MEDS: BENZOCAINE/MENTHOL 85 GRAM SPRAY BOTTLE 1 APPLIC TOPICAL (10:33)
[2024-12-25] MEDS: FERROUS SULFATE 325 MG TABLET PO ×2 (10:33→20:29)
[2024-12-25] MEDS: GLYCERIN/WITCH HAZEL PADS 1 PAD TOPICAL (10:33)
--- NOTE | 2024-12-25 12:33 | PM.OBPN ---
OB - PN: Subj Subjective Patient comments: no complaints, pain well controlled, tolerating diet, flatus present and other (bleeding is slowing down) status: doing well and well Exam Constitutional Vital Signs, click to edit/add: Last Vital Signs Temp 98.1 F 12/25/24 07:48 Pulse 114 H 12/25/24 07:48 Resp 20 12/24/24 15:00 BP 118/82 12/25/24 07:48 O2 Del Method Room Air 12/25/24 07:48 Documenting provider has reviewed patient's vital signs: yes Common normals: no apparent distress, oriented x3, healthy appearing, alert and well nourished General appearance: cooperative, comfortable, well kempt and well developed Orientation/consciousness: Yes awake, Yes oriented to person, Yes oriented to place and Yes oriented to time HENMT Common normals: normocephalic Eye Common normals: EOMs intact bilaterally Neck & C-Spine Common normals: full ROM and supple Respiratory Common normals: normal respiratory effort and no retractions Cardio Common normals: regular rate GI Common normals: Normal to inspection, nondistended, normoactive bowel sounds present, soft to palpation and non-tender Common normals: no CVA tenderness Back & Pelvis Common normals: no CVA tenderness Extremity Common normals: no calf tenderness (slight bilateral lower extremity edema) Psych Common normals: thought process normal and affect normal Appearance: grossly normal Attitude: calm Results Labs Labs: Short CBC 12/24/24 12/25/24 Range/Units 15:15 06:45 WBC 9.7 14.2 H (4.0-11.0) 10^3/uL Hgb 11.2 L 9.9 L (12.0-16.0) g/dL Hct 33.8 L 30.3 L (36.0-48.0) % Plt Count 249 255 (150-450) 10^3/uL OB - PN: A/P Assessment and Plan (1) Spontaneous vaginal delivery: Assessment and Plan: doing well on PPD # 1 Breast feeding Suspected discharge tomorrow (2) Iron deficiency anemia: Assessment and Plan: of Qualifiers: Iron deficiency anemia type: other iron deficiency Qualified Code(s): D50.8 - Other iron deficiency anemias Plan ferrous sulfate bid Plan - Vaginal Delivery day: 1 Plan: routine care Comment: home tomorrow Time Spent with Patient Time: Total time spent is greater than 50% in coordination of care (as documented) at patient's floor/unit and/or counseling patient: Total time spent with greater than 50% in coordination of care (as documented) at patient's floor/unit and/or counseling patient: less than 15 minutes
[2024-12-25 16:01] VITALS: BP 115/76; PULSE 104; TEMP 37
[2024-12-26 00:04] VITALS: BP 112/75; PULSE 104; TEMP 36.9
[2024-12-26 00:05] VITALS: BP 112/75; PULSE 104
[2024-12-26] MEDS: IBUPROFEN 400 MG TABLET 800 MG PO ×2 (00:11→08:30)
[2024-12-26 08:18] VITALS: BP 104/68; PULSE 86
[2024-12-26] MEDS: FERROUS SULFATE 325 MG TABLET PO (08:31)
[2024-12-26] MEDS: DOCUSATE SODIUM 100 MG CAPSULE PO (08:31)
[2024-12-26 08:34] VITALS: BP 104/68; PULSE 86; TEMP 36.6
--- NOTE | 2024-12-26 10:10 | SWNOTE1 ---
SW had consult due to concerns about home situation for baby. SW reviewed the note in the pt's chart from nurse. Father of baby had voiced concerns about the living situation. He was in the home and there a strong cat urine odor and it was cluttered, hoarder like situation. Father of baby also voiced he did not see a crib in the home either. Father of baby did record video of the home living environment as well. SW to speak with patient. SW met with pt to discuss any dc needs. This is pt's first baby. Pt lives in the home by herself. She stated her sister lives downstairs and she is a good support for her. SW asked if there was anyone else? She stated she has other family that can help as needed. SW and pt spoke about post depression and to be sure to reach out to her support system if needed. Pt is aware of [facility] and she will be calling to get that set up. Pt is breast feeding at this time and voiced it is going well. SW did ask pt if she has everything she needs at home for baby. Pt voiced she does have the car seat in the car at this time and her car keys are here. SW asked if she has a crib or bassinet for baby at home? Pt voiced she does. SW asked if she has any concerns or worries about being discharged with baby? Pt voiced no and that she is hopeful to go home today with baby. SW asked if father of baby was involved. She voiced that he is, but they do not live together at this time. Baby is in the bed with patient, pt holding baby. Baby sleeping at this time. Pt appeared to be caring for baby appropriately at this time. Pt voiced no concerns and had no questions for SW at this time. SW update nurse. Father of baby walking in at this time. SW spoke with father of baby, Jeremias, outside of room. SW advised that SW spoke to nurse and wanted Jeremias to know that his concerns have been heard and that SW is addressing. SW did let Jeremias know that anyone can make an anonymous report to CPS if they have concerns for safety/neglect of baby. SW asked if he would like the phone number for CPS? He stated he would like the phone number and he does hope it gets looked in to. SW advised that the more phone calls that are made, the more likely it would be they would open an investigation. TREVOR did advise Jeremias that if does feel that the safety of baby is in danger to call and make a report to CPS. At this time pt is voicing to SW that she has everything she needs for baby and pt is caring for baby appropriately. TREVOR did provide the nurse with [facility] phone number to provide to Jeremias. TREVOR spoke with nurse and Director of [facility] in regards to this situation. It was decided that at this time SW will call and make a report to [facility]. SW will advise of the concerns that father of baby has and also advise that pt is appropriate with baby at this time and caring for baby and no concerns during hospital stay. TREVOR called and made report to Nemo at [facility]. HIPAA form filled out and sent to
--- NOTE | 2024-12-26 11:29 | PM.OBDS ---
DS: Providers Provider Date of admission: 12/24/24 14:50 Primary care physician: Shaw Jorgensen MD Admitting clinician: JOSSY YOON Attending physician on admission: JOSSY YOON Consults: 12/25/24 Consult to Handbag Designer Routine Reason for consult:: Housing/Half-Way Other reason:: Infant safety upon discharge-see nurses note on chart. Please address in AM Attending physician on discharge: JOSSY OYON Discharging clinician: JOSSY YOON Anticipated date of discharge: 12/26/24 DS: Diagnosis Discharge Diagnosis (1) Spontaneous vaginal delivery: Assessment and plan: Doing well Breast feeding Home today (2) Iron deficiency anemia: Assessment and plan: Ferrous sulfate bid x 2 months Qualifiers: Iron deficiency anemia type: other iron deficiency Qualified Code(s): D50.8 - Other iron deficiency anemias OB - DS: Summary Hospital Course Hospital Course: 24yo now P1 at 37w4d presented in active labor with SROM and contractions and quickly progressed within less than 3 hours to completely dilated. She delivered via over bilateral labial lacerations which were repaired a 6 pound 4 ounce male with Apgars of 7 at 1 minute and 9 at 5 minutes. She was mildly anemic and post delivery hemoglobin was 9.9. She was started on iron bid and was sent home with this. Bleeding was slowing down. Pain was well controlled. Peripartum Data - Vaginal Delivery Laceration description: labial (bilateral) Episiotomy Description: none Complications complications: none Delivery method: spontaneous vaginal delivery Gender: male Discharge plan: home Status at Discharge Functional status at discharge: independent ambulation Overall status at discharge: patient is progressing back to baseline Time Spent with Patient Time attestation: Total time spent providing and/or coordinating discharge services: Time spent: less than 30 minutes Exam Constitutional Vital Signs, click to edit/add: Last Vital Signs Temp 98 F 12/26/24 08:34 Pulse 86 12/26/24 08:34 Resp 16 12/26/24 08:34 BP 104/68 12/26/24 08:34 O2 Del Method Room Air 12/26/24 08:34 Documenting provider has reviewed patient's vital signs: yes Common normals: no apparent distress and well nourished General appearance: cooperative, comfortable, well kempt and well developed Orientation/consciousness: Yes awake, Yes oriented to person, Yes oriented to place and Yes oriented to time HENMT Common normals: normocephalic Eye Common normals: EOMs intact bilaterally Neck & C-Spine Common normals: supple Respiratory Common normals: normal respiratory effort and no retractions Cardio Common normals: regular rate GI Common normals: soft to palpation and non-tender Other: fundus firm below umbilicus and non-tender Back & Pelvis Common normals: no CVA tenderness Extremity Common normals: no pedal edema Psych Common normals: mental status grossly normal, thought process normal, affect normal and speech normal Appearance: grossly normal and well kempt Attitude: calm Discharge Plan Discharge Disposition: Home, Self-Care Condition: Good Discharge Medications: New ferrous sulfate 325 mg (65 mg iron) Tablet 325 mg PO BID Qty: 120 0RF ibuprofen 400 mg Tablet 800 mg PO Q8H Qty: 60 0RF Rx Instructions: 2 tablets every 8 hours as needed for pain docusate sodium 100 mg Capsule 100 mg PO BID Qty: 60 0RF Rx Instructions: 1 capsule bid PRN constipation Continued cetirizine 10 mg tablet 10 mg PO DAILY duloxetine 60 mg capsule,delayed release(DR/EC) 60 mg PO DAILY Activity: increase activity as tolerated Diet: advance to your usual diet Print Language: [place] Forms: Portal Instructions Follow Up Appointments: follow up in [address] Welsh
== END 2024-12-26 16:00 | disposition home or self-care (01) | DRG 560 ==
PROVIDERS: Admitting Provider Obstetrics & Gynecology; PCP Family Medicine; Visit Provider Obstetrics & Gynecology
DX: O69.2XX0 Labor and delivery complicated by other cord entanglement, with compression, not applicable or unspecified (principal); O70.0 First degree perineal laceration during delivery; Z3A.37 37 weeks gestation of pregnancy; Z37.0 Single live birth; O90.81 Anemia of the puerperium; D50.8 Other iron deficiency anemias
CPT/HCPCS: 36415; 59050; 59410; 80307; 84112; 85025; 85027; 86850; 86900; 86901; J3010

== ENCOUNTER 2025-02-26 17:18 | Emergency (ER) | payer OTHER, SELFPAY ==
--- OUTSIDE RECORDS SUMMARY | 2025-02-13 10:30 | XMS_ITS | Encounter Summary ---
Author Organization [facility] Address [address] [place] [address] [place] [address] Care Team Providers Care Manufacturing Operations Manager Name Role Phone Shaw Jorgensen MD Primary Care Provider [phone] Reason for Visit * ReasonCommentsPostpartum Care Encounter Details DateTypeDepartmentCare Team (Latest Contact Info)Enlzruzlrpd60/17/2025 10:30 AM ESTPostpartum Visit ANA [facility] [address] [place] [id number] Tran Gomez PA [address] [place] [address] 6 weeks follow-up ([facility]) Social History Tobacco UseTypesPacks/DayYears UsedDateSmoking Tobacco: NeverSmokeless Tobacco: Never Tobacco Cessation:Counseling Given: Not Answered Alcohol UseStandard Drinks/WeekCommentsNever0 (1 standard drink = 0.6 oz pure alcohol)CommentsNoSex and Gender InformationValueDate RecordedSex Assigned at ZwasjDmwuhu04/31/2023 8:37 AM EDTLegal HabKokxws81/15/2023 7:05 PM EDTGender EwjhwccbHtohnx45/31/2023 8:37 AM EDTSexual OrientationStraight 08/27/2022 8:37 AM EDTdocumented as of this encounter Last Filed Vital Signs Vital SignReadingTime TakenCommentsBlood Ikptcgji459/6002/13/2025 10:52 AM EST Pulse--Temperature--Respiratory Rate--Oxygen Saturation--Inhaled Oxygen Concentration--Ibsizp75.4 kg (186 lb)02/13/2025 10:52 AM ESTHeight--Body Mass Index30.95008/03/2023 10:00 AM EDTdocumented in this encounter Progress Notes * MALOU Moreno - 02/13/2025 10:30 AM EST Reason for Appointment: Patient ID: Loyda Gibson is a 25 y.o. female who presents for Care Patient presents today for Post Follow Up appointment. MEDICATIONS Current Outpatient Medications Medication Instructions cetirizine (ZyrTEC) 10 MG tablet Every 24 hours docusate sodium (Colace) 100 MG capsule TAKE 1 CAPSULE BY MOUTH TWICE A DAY NEEDED FOR CONSTIPATION DULoxetine (CYMBALTA) 60 mg, Daily ferrous sulfate 325 (65 Fe) MG tablet 1 tablet, 2 times daily hyoscyamine (Levsin) 0.125 MG SL tablet DISSOLVE 1 TO 2 TABS UNDER THE TONGUE EVERY 4 HOURS NEEDED FOR ABDOMINAL PAIN Vit-Fe Fumarate-FA ( VITAMIN PO) Take by mouth ALLERGIES No Known Allergies PROBLEMS Active Ambulatory Problems Diagnosis Date Noted Pelvic pain in female 04/10/2023 Resolved Ambulatory Problems Diagnosis Date Noted No Resolved Ambulatory Problems Past Medical History: Diagnosis Date Abnormal uterine bleeding (AUB) Anxiety and depression Anxiety disorder DUB (dysfunctional uterine bleeding) Dysmenorrhea Endometriosis Female infertility H/O one miscarriage Menorrhagia Menstrual irregularity Nonsmoker Ovarian cyst Protein S deficiency (HHS-HCC) Urinary tract infection HISTORY PAST MEDICAL HISTORY SOCIAL HISTORY Past Medical History: Diagnosis Date Abnormal uterine bleeding (AUB) Anxiety and depression Anxiety disorder DUB (dysfunctional uterine bleeding) Dysmenorrhea Endometriosis Female infertility H/O one miscarriage Menorrhagia Menstrual irregularity Nonsmoker Ovarian cyst Pelvic pain in female Protein S deficiency (HHS-HCC) Urinary tract infection Social History Tobacco Use Smoking status: Never Smokeless tobacco: Never Substance Use Topics Alcohol use: Never Drug use: Never FAMILY HISTORY Family History Problem Relation Name Age of Onset Endometriosis Mother Beena Key acute Osteoarthritis Mother Beena Key Asthma Mother Beena [place] Diabetes Mother Beena [place] Heart failure Mother Beena [place] Asthma Sister Mikaela Gibson Melanoma Paternal Grandmother Heart disease Paternal Grandmother SURGICAL HISTORY Past Surgical History: Procedure Laterality Date FOOT SURGERY 01/05/2015 toothpick removal LAPAROSCOPY DIAGNOSTIC / BIOPSY / ASPIRATION / LYSIS 10/25/2021 diagnostic - endometriosis PAP SMEAR 11/05/2020 negaitve TONSILLECTOMY 03/27/2010 WISDOM TOOTH EXTRACTION 01/26/2016 [place] teeth REVIEW OF SYSTEMS Review of Systems: [...] reviewed. Vitals: Estimated body mass index is 29.64 kg/m?? as calculated from the following: Height as of 08/03/23: 5' 5 . Weight as of 12/21/24: 178 lb 1.9 oz. BP: No LMP recorded (lmp unknown). ASSESSMENT & PLAN ICD-10-CM 1. 6 weeks follow-up ([facility]) Z39.2 Assessment/Plan Post Follow Up: Patient is doing well . Patient presents today for 6 week visit. Patient is s/p Vaginal delivery. Patient states depression but denies suicidal and homicidal ideations. All options were discussed with the patient regarding control and patient desires no control at this time. Follow Up: Patient is to return for annual unless needed otherwise. Documented by Krystal Costello CST on behalf of: MALOU Moreno documented in this encounter Plan of Treatment DateTypeDepartmentCare Team (Latest Contact Info)Uelljdsnmox57/03/2026 8:30 AM EDTProcedure Visit [facility] [address] [place] [phone] Aden Welsh DO [address] [place], [place] [phone] documented as of this encounter Goals GoalPatient Goal TypeAssociated ProblemsRecent ProgressPatient-Stated?Author Reminders Care PlanOB RemindersNoOpen Scheduling, Backgrounddocumented as of this encounter Visit Diagnoses Diagnosis 6 weeks follow-up ([facility]) documented in this encounter Additional Health Concerns Active ProblemsNoted DateDiagnosed DateOB Syvjwjkcp63/24/2025 documented as of this encounter Care Teams Team MemberRelationshipSpecialtyStart DateEnd Date Shaw Jorgensen MD [address] [place] [id number] PCP - GeneralFamily Medicine09/03/22documented as of this encounter
[2025-02-26 17:30] VITALS: BP 154/97; PULSE 93; TEMP 36.9; O2SAT 100; BMI 32.8
--- NOTE | 2025-02-26 18:13 | ED.ABDPAIN1 ---
HPI - Abdominal Pain General Chief Complaint: Abdominal Pain Stated Complaint: rib pain Time Seen by Provider: 02/26/25 18:04 Source: patient Mode of arrival: Wheelchair History of Present Illness HPI narrative: Patient is a 25-year-old female presents to the ER with concerns of right flank pain. She reports the pain to be sharp constant and woke her from sleep this morning. She denies any fevers or chills. She is mostly concerned with her gallbladder as she was scheduled to have it removed in April for gallstones but found out she was at the same day. She admits that she has done well through most of the summer and is now 2 months breast-feeding and has not yet had a menstrual cycle. She denies any blood in her urine and pain is more located on the right flank region. She denies eating any greasy or fatty foods last night and has had several bouts of nausea and vomiting which has diminished her appetite. Patient's significant other is at the bedside and she appears uncomfortable but no acute distress notes the pain has been steadily progressing since it started this morning. MD elicited complaint: Reports flank pain Pain Consistency: Reports constant Location: Reports R flank Severity: moderate Quality: Reports aching and sharp Radiation: Reports R flank Migration to: Reports no migration Exacerbating factors: Reports nothing Relieving factors: Reports nothing Related Data Date of last menstrual period: 2 months Hx Last Menstrual Period: Before last Home Medications ?Medication ?Instructions ?Recorded ?Confirmed cetirizine 10 mg tablet 10 mg PO DAILY 05/25/23 02/26/25 duloxetine 60 mg capsule,delayed 120 mg PO DAILY 05/25/23 02/26/25 release Previous Rx's ?Medication ?Instructions ?Recorded ferrous sulfate 325 mg (65 mg 325 mg PO BID #120 tabs 12/26/24 iron) tablet hydrocodone 5 mg-acetaminophen 325 1 tab PO Q6H PRN pain #8 tabs 02/26/25 mg tablet ibuprofen 600 mg tablet 600 mg PO TID PRN pain #30 tabs 02/26/25 ondansetron HCl 4 mg tablet 4 mg PO Q6H PRN nausea and 02/26/25 vomiting #12 tabs Allergies Allergy/AdvReac Type Severity Reaction Status Date / Time No Known Drug Allergies Allergy Verified 12/24/24 15:09 Review of Systems ROS Constitutional Denies: fever or chills Eyes Denies: change in vision or blurry vision Ears, nose, mouth, and throat Denies: throat pain or neck pain Cardiovascular Denies: chest pain or palpitations Respiratory Denies: shortness of breath or cough Gastrointestinal Reports: abdominal pain, nausea and vomiting; Denies: diarrhea Genitourinary Denies: painful urination or urinary frequency Musculoskeletal Reports: back pain (right CVA region); Denies: neck pain or extremity pain Integumentary/Breast Denies: rash or itching Neurological Denies: headache Psychiatric Denies: anxiety Endocrine Denies: excessive urination Hematologic/Lymphatic Denies: easy bruising PFSH [facility] Medical History (Updated 02/26/25 @ 20:42 by MALOU Sin) Nausea & vomiting ?R11.2 - Nausea with vomiting, unspecified (ICD-10) History of spontaneous ?Z87.59 - Personal history of other complications of , childbirth and the puerperium (ICD-10) Headache ?R51.9 - Headache, unspecified (ICD-10) Toothache ?K08.89 - Other specified disorders of teeth and supporting structures (ICD-10) Anemia ?D64.9 - Anemia, unspecified (ICD-10) PTSD (post-traumatic stress disorder) ?F43.10 - Post-traumatic stress disorder, unspecified (ICD-10) Panic attacks ?F41.0 - Panic disorder [episodic paroxysmal anxiety] (ICD-10) Anxiety ?F41.9 - Anxiety disorder, unspecified (ICD-10) Restless leg ?G25.81 - Restless legs syndrome (ICD-10) Migraine ?G43.909 - Migraine, unspecified, not intractable, without status migrainosus (ICD-10) Seasonal allergic rhinitis ?J30.2 - Other seasonal allergic rhinitis (ICD-10) Scoliosis ?M41.9 - Scoliosis, unspecified (ICD-10) Insomnia ?G47.00 - Insomnia, unspecified (ICD-10) Depression ?F32.A - Depression, unspecified (ICD-10) Alopecia ?L65.9 - Nonscarring hair loss, unspecified (ICD-10) Attention deficit disorder ?F98.8 - Other specified behavioral and emotional disorders with onset usually occurring in childhood and adolescence (ICD-10) Surgical History (Updated 12/24/24 @ 15:44 by JOSSY YOON MD) History of tonsillectomy and adenoidectomy ?Z90.89 - Acquired absence of other organs (ICD-10) H/O foot surgery ?Z98.890 - Other specified postprocedural states (ICD-10) H/O laparoscopy ?Z98.890 - Other specified postprocedural states (ICD-10) Family History Other Family history of DVT Family history of breast cancer Family history of heart disease Family history of ovarian cancer Family history of pulmonary embolism Family history of skin cancer Family history of uterine cancer Social History (Updated 12/24/24 @ 15:45 by JOSSY YOON MD) Within the past year, how often did you have a drink containing alcohol: never Score interpretation: A score less than 3 is consistent with normal alcohol consumption. Smoking status: Never smoker Non-prescribed substance use: denies use Previous occupational history: Unemployed Highest level of school completed/degree received: high school graduate Little interest or pleasure in doing things: not at all Feeling down, depressed, or hopeless: not at all Gender Identity: female Exam Narrative Exam Narrative: Nurse's notes and vital signs reviewed and patient is not hypoxic. General: The patient appears well , seated up holding her right flank. Skin: Warm, dry, no pallor noted. No evidence of rash or zoster like rash. Head: Normocephalic, atraumatic Neck: Supple, trachea midline, no tenderness, no lymphadenopathy Ears, nose, mouth, and throat: TMs are clear, normal light reflex, oral mucosa is moist, no posterior oropharynx erythema or hypertrophy, uvula is midline Cardiovascular: Regular rate and rhythm Respiratory: Patient is in no distress, no accessory muscle use, lungs are clear to auscultation, no wheezing, rales, or rhonchi. Chest wall: No tenderness Musculoskeletal: Normal ROM, no tenderness, no swelling Back: Right CVA tenderness present no midline thoracic or lumbar tenderness left CVA is nontender GI: Normal bowel sounds, mild tenderness in the right upper quadrant no tenderness in the right lower or left lower quadrants. Her right flank is tender. No masses appreciated. No rebound, guarding, or rigidity noted. Neurological: Alert and oriented ?4 Psychiatric: Cooperative Constitutional Vital Signs, click to edit/add: Last Vital Signs Temp 98.5 F 02/26/25 17:30 Pulse 93 H 02/26/25 17:30 Resp 16 02/26/25 17:30 BP 154/97 H 02/26/25 17:30 Pulse Ox 100 02/26/25 17:30 O2 Del Method Room Air 02/26/25 17:30 Course Vital Signs Vital signs: Vital Signs Temperature 98.5 F 02/26/25 17:30 Pulse Rate 93 H 02/26/25 17:30 Respiratory Rate 16 02/26/25 17:30 Blood Pressure 154/97 H 02/26/25 17:30 Pulse Oximetry 100 02/26/25 17:30 Oxygen Delivery Method Room Air 02/26/25 17:30 Temperature 98.5 F 02/26/25 17:30 Pulse Rate 93 H 02/26/25 17:30 Respiratory Rate 16 02/26/25 17:30 Blood Pressure 154/97 H 02/26/25 17:30 Pulse Oximetry 100 02/26/25 17:30 Oxygen Delivery Method Room Air 02/26/25 17:30 MDM - Abdominal Pain MDM Narrative Medical decision making narrative: Patient presents with abrupt onset right flank pain that started this morning progressively worsening throughout the day she has CVA tenderness on the right but no dysuria symptoms. We discussed her known history of gallstones but she did not eat anything prior to this onset of symptoms that may be would have triggered attack. Patient agreeable to IV medications for symptoms. She is currently breast-feeding. Patient reevaluated after receiving Zofran and Toradol. She still reports some mild nausea states pain remains unchanged. She is agreeable to stronger medication will be given 0.5 mg IV Dilaudid. We discussed the effect of this on her breastmilk and the patient states she can switch to formula. Patient returned from CT and noted to have pain improvement down to a 5 out of 10 from previously being a 9 out of 10. She appears much more comfortable. CT results are pending. CT reviewed, no evidence of ureterolithiasis she does have cholelithiasis which is known to the patient. We discussed her symptoms today likely that of biliary colic. We have recommended a clear liquid diet and a prompt follow-up to her general surgeon to rediscuss treatment options. Patient aware that she should not breast-feed for the next 24 hours with the medication given. We also will prescribe additional pain medicines that can cause sedate of effects. The patient verbalized that she will use formula for her and not her breastmilk. She may return to the ER if symptoms worsen or new symptoms develop. The patient is to followup with primary care physician in next 2-[address] Dugan in the next 1-2 days or to return to the emergency department should any of the signs or symptoms worsen or new symptoms develop. Patient had questions answered. The patient agrees with the following Diagnosis and Treatment plan and the patient will be discharged home. Differential Diagnosis Differential diagnosis: Likely abdominal pain, acute appendicitis, calculus of kidney, gastroenteritis and other (Biliary Colic) Lab Data Attestation: I reviewed the patient's lab results. Labs: Lab Results 02/26/25 Range/Units 18:15 WBC 10.8 (4.0-11.0) 10^3/uL RBC 4.73 (4.20-5.40) 10^6/uL Hgb 13.8 (12.0-16.0) g/dL Hct 41.7 (36.0-48.0) % MCV 88.2 (81.0-99.0) fL MCH 29.2 (26.7-34.0) pg MCHC 33.1 (29.9-35.2) g/dL RDW 14.0 (11.0-15.0) % Plt Count 334 (150-450) 10^3/uL MPV 9.2 L (9.5-13.5) fL Neut % (Auto) 78.4 H (43.0-75.0) % Lymph % (Auto) 13.9 L (20.5-60.0) % [place] % (Auto) 5.1 (1.7-12.0) % Eos % (Auto) 1.8 (0.9-7.0) % Baso % (Auto) 0.6 (0.2-2.0) % Neut # (Auto) 8.5 H (1.4-6.5) 10^3/uL Lymph # (Auto) 1.5 (1.2-3.8) 10^3/uL [place] # (Auto) 0.6 (0.3-0.8) 10^3/uL Eos # (Auto) 0.2 (0.0-0.7) 10^3/uL Baso # (Auto) 0.1 (0.0-0.1) 10^3/uL Abs Immat Gran (auto) 0.02 (0.00-0.03) 10^3/uL Imm/Tot Granulo (auto) 0.2 (0.0-0.5) % Sodium 139 (136-145) mmol/L Potassium 3.6 (3.5-5.1) mmol/L Chloride 101 (98-107) mmol/L Carbon Dioxide 30.6 (21.0-32.0) mmol/L Anion Gap 11.0 BUN 14.0 (7.0-18.0) mg/dL Creatinine 0.75 (0.55-1.02) mg/dL Est GFR ( Amer) >60 (>=60 mL/min/1.73m^2) Est GFR (Non-Af Amer) >60 (>=60 mL/min/1.73m^2) BUN/Creatinine Ratio 18.7 Glucose 99 (74-106) mg/dL Calcium 9.2 (8.5-10.1) mg/dL Total Bilirubin 0.4 (0.2-1.0) mg/dL AST 20 (15-37) U/L ALT 28 (14-59) U/L Alkaline Phosphatase 92 (46-116) U/L Total Protein 7.9 (6.4-8.2) g/dL Albumin 3.8 (3.4-5.0) g/dL Globulin 4.1 g/dL Albumin/Globulin Ratio 0.9 Lipase 47.0 (16.0-77.0) U/L Urine Color Lt. yellow (YELLOW) Urine Clarity Clear (CLEAR) Urine pH 8.5 (5.0-9.0) Ur Specific [place] 1.015 (1.005-1.025) Urine Protein Negative (NEG/TRACE) mg/dL Urine Glucose (UA) Negative (NEGATIVE) mg/dL Urine Ketones Negative (NEGATIVE) mg/dL Urine Occult Blood Negative (NEGATIVE) Urine Nitrite Negative (NEGATIVE) Urine Bilirubin Negative (NEGATIVE) Urine Urobilinogen 0.2 (0.2-1.0) EU/dL Ur Leukocyte Esterase Trace A (NEGATIVE) Urine RBC 0-2 (0-2) #/HPF Urine WBC 0-2 A (NONE SEEN) #/HPF Ur Squamous Epith Cells Rare (NONE/RARE) #/LPF Urine Crystals Seen A (None Seen) #/HPF Amorphous Sediment Moderate Urine Bacteria Trace A (NONE SEEN) #/HPF Urine Casts None seen (NONE SEEN) #/LPF Urine Mucus Trace A (NONE SEEN) Urine HCG, Qual Negative (NEGATIVE) Imaging Data CT scan - abdomen: Radiologist's impression: CT scan abdomen and pelvis without IV contrast: Per radiologist cholelithiasis, no acute additional findings. The appendix was visualized and appears to be normal adrenal kidneys and ureters normal without evidence of ureterolithiasis. Discharge Plan Discharge Chief Complaint: Abdominal Pain Clinical Impression: Acute right flank pain, Biliary colic, Cholelithiasis Patient Disposition: Home, Self-Care Time of Disposition Decision: 20:42 Condition: Good Prescriptions / Home Meds: New ondansetron HCl 4 mg tablet 4 mg PO Q6H PRN (Reason: nausea and vomiting) Qty: 12 0RF ibuprofen 600 mg tablet 600 mg PO TID PRN (Reason: pain) Qty: 30 0RF hydrocodone-acetaminophen 5-325 mg tablet 1 tab PO Q6H PRN (Reason: pain) Qty: 8 0RF No Action cetirizine 10 mg tablet 10 mg PO DAILY duloxetine 60 mg capsule,delayed release(DR/EC) 120 mg PO DAILY ferrous sulfate 325 mg (65 mg iron) Tablet 325 mg PO BID Qty: 120 0RF Print Language: Bulgarian Instructions: Biliary Colic (ED) Referrals: Shaw Jorgensen MD [Primary Care Provider, Family Practice] - 1 week Israel Dugan MD [Physician, General Surgery] - As soon as possible
[2025-02-26 18:34] LABS: Hematocrit 41.7 % (36.0-48.0); Hemoglobin 13.8 g/dL (12.0-16.0); Immature Granulocytes Abs Auto 0.02 10^3/uL (0.00-0.03); Immature Granulocytes Pct Auto 0.2 % (0.0-0.5); Lymphocytes Absolute Auto 1.5 10^3/uL (1.2-3.8); Mean Corpuscular HGB Conc 33.1 g/dL (29.9-35.2); Mean Corpuscular Hemoglobin 29.2 pg (26.7-34.0); Mean Corpuscular Volume 88.2 fL (81.0-99.0); Platelet Count 334 10^3/uL (150-450); Red Blood Count 4.73 10^6/uL (4.20-5.40); White Blood Count 10.8 10^3/uL (4.0-11.0)
[2025-02-26] MEDS: FAMOTIDINE/PF 20 MG/2 ML VIAL IV (18:34)
[2025-02-26] MEDS: KETOROLAC TROMETHAMINE 30 MG/ML VIAL IM (18:34)
[2025-02-26 18:35] LABS: Glucose Urine UA NEGATIVE (NEGATIVE)
[2025-02-26] MEDS: 0.9 % SODIUM CHLORIDE 1,000 ML 999 ML IV (18:35)
[2025-02-26 18:37] LABS: HCG Qualitative Urine* NEGATIVE (NEGATIVE)
[2025-02-26 18:45] LABS: Cast Seen? NONE SEEN #/LPF (NONE SEEN); Crystals Seen? Seen #/HPF (None Seen)
--- OUTSIDE RECORDS SUMMARY | 2025-02-26 18:45 | XMS_ITS | CCD ---
Author Organization [facility] CliniSynv Care Team Providers Care Client Care Specialist Name Role Phone ANITHA ., DR [...] Primary Care Unavailable KHLOE GARCIA Consulting Unavailable NAITHA ., DR BLACKWELL Admitting Unavailable ANITHA ., DR BLACKWELL Attending Unavailable CHIY ., DR HAY Primary Care Unavailable AHSAN, DR NIKO Selby Consulting Unavailable Shaw Jorgensen MD Primary Care Provider [phone] Shaw Jorgensen Primary Care Physician Israel POND Attending Unavailable Shaw Jorgensen Referring Unavailable Israel POND Attending Unavailable Anatoly PARK Attending Unavailable Shaw Jorgensen MD Primary Care Provider ROSALVA WELSH Attending Unavailable TRAN PEREZ Attending Unavailable ANITHA, ROSALVA Attending Unavailable ROSALVA WELSH Referring Unavailable TRAN PEREZ Attending Unavailable ROSALVA WELSH Attending Unavailable KHLOE GARCIA Attending Unavailable ANITHA, ROSALVA Attending Unavailable ROSALVA WELSH Attending Unavailable Shaw Jorgensen MD Primary Care Provider Allergies Allergy ClassificationReported Allergen(s)Allergy TypeDate of OnsetReaction(s) Facility (1 source)No Known Medication Allergies; Translations: [No Known Medication Allergies]Propensity to adverse reactions (disorder)[facility] Repository Medications Current Medications MedicationDrug Class(es)DatesSig (Normalized)Sig (Original)cetirizine hydrochloride 10 mg oral tablet (20 sources)Histamine-1 Receptor AntagonistStart: 37-35-4353lisk 1 tablet by mouth once dailycetirizine 10 mg Tab 10 mg = 1 tab(s), Oral, Daily, Refills(s) 0 Start Date: 12/25/23 Status: OrderedDULoxetine 60 mg delayed release oral capsule (20 sources)Serotonin and Norepinephrine Reuptake Inhibitortake 1 capsule by mouth in the morningDULoxetine (Cymbalta) [address] capsule Take 60 mg by mouth in the morning. Activeduloxetine 60 mg Cap-DR (2 sources)Start: 85-06-0889fciu 2 capsules by mouth once dailyduloxetine 60 mg Cap-DR = 2 cap(s), Oral, Daily, Refills(s) 0 Start Date: 12/25/23 Status: Ordered fluocinonide 0.5 mg/ml topical solution (4 sources)CorticosteroidStart: 04-22-2023 End: 19-87-3525krznplgjygkd (Lidex) 0.05 % external solution Indications: Other seborrheic dermatitis Apply to affected areas on the scalp, up to twice a day when flared, 30 day supply 60 mL 11 04/22/2023 08/05/2024 Discontinued hyoscyamine sulfate 0.125 mg sublingual tablet (1 source)Start: 94-82-6492yvds 1 tablet under the tongue every four hours as needed for painhyoscyamine 0.125 mg sublingual Tab 0.125 mg = 1 tab(s), SubLingual, q4hr, PRN abdominal pain, Refills(s) 0 Start Date: 04/06/24 Status: Orderedibuprofen 800 mg oral tablet (4 sources)Nonsteroidal Anti-inflammatory DrugStart: 07-01-2022 End: 23-09-4929kgeutlnxa 800 MG tablet TAKE 1 TABLET BY MOUTH EVERY 6 TO 8 HOURS NEEDED 07/01/2022 08/05/2024 Discontinuedketoconazole 20 mg/ml medicated shampoo (1 source)Azole AntifungalStart: 04-23-2023 End: 50-22-5601uptxzxwtwdaw (NIZOral) 2 % shampoo Indications: Other seborrheic dermatitis Apply topically 2 (two)times a week Lather on scalp 2x a week, leave on 5 min before rinsing 120 mL 11 04/23/2023 05/23/2023 Activemagnesium oxide 400 mg oral tablet (5 sources)Start: 08-05-2024 End: 68-37-9418akox 1 tablet by mouth once dailymagnesium oxide (Mag-Ox) 400 MG tablet Indications: , unspecified gestational age Take 1 tablet (400 mg) by mouth Daily 30 tablet 6 08/05/2024 09/04/2024 ActivemetroNIDAZOLE 500 mg oral tablet (2 sources)Nitroimidazole AntimicrobialStart: 10-21-2024 End: 51-86-5538vvbn 1 tablet by mouth in the morningmetroNIDAZOLE (Flagyl) 500 MG tablet Indications: BV (bacterial vaginosis) Take 1 tablet (500 mg) by mouth in the morning and 1 tablet (500 mg) before bedtime. Do all this for 7 days. Do not drink alcohol while taking this medication. 14 tablet 10/21/2024 11/02/2024 Discontinuedpantoprazole 40 mg delayed release oral tablet (1 source)Proton Pump InhibitorStart: 51-76-6530xfpc 1 tablet by mouth once dailyPantoprazole [address] Tab 40 mg = 1 tab(s), Oral, Daily, Refills(s) 0 Start Date: 04/06/24 Status: OrderedPrenatal Vit-Fe Fumarate-FA ( VITAMIN PO) (20 sources) Vit-Fe Fumarate-FA ( VITAMIN PO) Take by mouth ActiveQUEtiapine 50 mg oral tablet (7 sources)Atypical AntipsychoticStart: 07-34-4822vzia 1 tablet by mouth once dailyquetiapine 50 mg oral tablet 50 mg = 1 tab(s), Oral, Daily, Refills(s) 0 Start Date: 12/25/23 Status: OrderedStart: 15-71-2063peky 3 tablets by mouth once dailyquetiapine 50 mg oral tablet 150 mg = 3 tab(s), Oral, Daily, Refills(s) 0 Start Date: 12/25/23 Status: OrderedStart: 03-08-2023 End: 43-72-0181azxr 2 tablets by mouth in the morningQUEtiapine (SEROquel) 50 MG tablet Take 100 mg by mouth in the morning. 03/08/2023 08/05/2024 Discontinued Start: 03-15-2022 End: 10-39-8167PTGsmxdvmk (SEROquel) 25 MG eeqamzIvtdmswwf-Qrkbjbklg-Lpdipbemz (Myfembree) 40-1-0.5 MG tablet (2 sources)Start: 89-44-3232gbxd 1 tablet by mouth once daily Pgbwbtvfv-Ptjresbqi-Mjcwoslsp (Myfembree) 40-1-0.5 MG tablet Indications: Endometriosis Take 1 tablet by mouth Daily 30 tablet 6 09/07/2023 Active rOPINIRole 5 mg oral tablet (5 sources)Nonergot Dopamine AgonistStart: 12-25-2023 End: 92-17-7064dpux 1 tablet by mouth at bedtimeropinirole 5 mg oral tablet 5 mg = 1 tab(s), Oral, Bedtime, Refills(s) 0 Start Date: 12/25/23 Status: Ordered Completed/Discontinued Medications MedicationDrug Class(es)DatesSig (Normalized)Sig (Original)24 hr buPROPion hydrochloride 300 mg extended release oral tablet (1 source)AminoketoneStart: 04-17-2022 End: 08-84-9680easc 1 tablet by mouth every twenty-four hours in the morning buPROPion XL (Wellbutrin XL) 300 MG 24 hr tablet Take 300 mg by mouth in the morning. 0 04/17/2022 05/05/2023 Discontinuedcariprazine 1.5 mg oral capsule (1 source)Atypical AntipsychoticStart: 07-06-2022 End: 23-35-4407ezag 1 capsule by mouth in the morningVraylar 1.5 MG capsule Take 1 capsule by mouth in the morning. 0 07/06/2022 05/05/2023 Discontinuedethinyl estradiol 0.035 mg / norgestimate 0.25 mg oral tablet (1 source)Progestin, Estrogen End: 04-72-0286lqnzhnxmyudi-ethinyl estradiol (Ortho-Cyclen) 0.25-35 MG-MCG tablet Take 1 tablet by mouth in the morning. 0 05/05/2023 Discontinued mirtazapine 15 mg oral tablet (1 source)Start: 05-25-2022 End: 41-57-1961vcko 1 tablet by mouth at bedtimemirtazapine (Remeron) 15 MG tablet Take 15 mg by mouth at bedtime 0 05/25/2022 05/05/2023 Discontinued phentermine hydrochloride 37.5 mg oral tablet (1 source)Sympathomimetic Amine AnorecticStart: 01-26-2023 End: 23-57-8577dfnu 1 tablet by mouth before mealtimephentermine (Adipex-P) 37.5 MG tablet Indications: Encounter for weight management Take 1 tablet (37.5 mg) by mouth in the morning. Take before meals. 30 tablet 0 01/26/2023 05/05/2023 Discontinued Problems Active Problems Problem ClassificationProblemDateDocumented DateEpisodic/Chronic Administrative/social admission (7 sources)Encounter for pre-employment examination; Translations: [Follow-up status]Onset: 39-51-6779ZzuguagkEogdvkcoj-deficit, conduct, and disruptive behavior disorders (2 sources)Attention deficit hyperactivity disorder, predominantly inattentive azql15-42-6747IgsavkcYayljhj tract disease (5 sources)Cholelithiasis without obstruction; Translations: [Calculus of gallbladder without cholecystitis without obstruction]Onset: 83-87-8961Imoptjsu Immunizations and screening for infectious disease (2 sources)Exposure to sexually transmissible disorder; Translations: [Contact with and (suspected) exposure to infections with a predominantly sexual mode of transmission]22-41-8862KbcxjvsmNgbknbpcg disorders (3 sources)Excessive and frequent menstruation with irregular cycle; Translations: [Dysmenorrhea, unspecified]Onset: 091953-50-7972CcbjaxeHqiz disorders (2 sources)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 (2 sources)Scoliosis deformity of -36-3271ArlaxneRcscx female genital disorders (1 source)Abnormal uterine and vaginal bleeding, unspecified; Translations: [ABNORMAL UTERINE VAGINAL BLEED UNS]Onset: 21-92-2740TaspidnIqkrd nutritional; endocrine; and metabolic disorders (2 sources)Vbutegpuxl30-03-1623PwcdkresNhgoe nutritional; endocrine; and metabolic disorders (2 sources)Overweight in adulthood with body mass index of 25 or more but less than 9888-50-9966StdhwgicVychh and delivery including normal (18 sources); Translations: [Encounter for supervision of normal , unspecified, unspecified trimester]86-08-0824JvnyuesgQvgkh screening for suspected conditions (not mental disorders or infectious disease) (3 sources)Patient encounter status; Translations: [Encounter for other specified screening]48-67-7084YqcoqigjSqlzh skin disorders (2 sources)Bscvwagb90-33-5143LbidevqnNcqab upper respiratory disease (2 sources)Seasonal allergic helhoisa61-22-7452IykrvxuKkyjktca codes; unclassified (2 sources)Refejrdw10-42-8965KzcpbiylVnslhuon codes; unclassified (2 sources)Gestation period, 20 weeks; Translations: [20 weeks gestation of ]97-88-9223LhtwndseBxoqrneo codes; unclassified (2 sources)Gestation period, 25 weeks; Translations: [25 weeks gestation of ]02-79-7814CjvebkrdFewfbwku codes; unclassified (2 sources)Gestation period, 28 weeks; Translations: [28 weeks gestation of ]51-47-9262XvslfuafTqeagkhb codes; unclassified (2 sources)Gestation period, 30 weeks; Translations: [30 weeks gestation of ]53-40-1475GpqgbgpcCmsdokrx codes; unclassified (2 sources)Gestation period, 32 weeks; Translations: [32 weeks gestation of ]53-28-2898QkezdhqsQfknztjb codes; unclassified (2 sources)Gestation period, 34 weeks; Translations: [34 weeks gestation of ]74-73-3739OvuandirVfumcglt codes; unclassified (2 sources)Gestation period, 36 weeks; Translations: [36 weeks gestation of ]53-47-6225EvbxwxhqJovmmylh codes; unclassified (2 sources)Gestation period, 37 weeks; Translations: [37 weeks gestation of ]16-84-6745GvmxtvwjNvrfxecu transmitted infections (not HIV or hepatitis) (2 sources)Chlamydia trachomatis infection; Translations: [Sexually transmitted chlamydial infection of other sites]89-99-3818VeqdyncwPfqbhjkkhlfu (1 source)CONTACT W/AND (SUSP) EXPOS COVID-19; Translations: [CONTACT W/AND (SUSP) EXPOS COVID-19]Onset: 88-58-3416Pidgwycbfngo (20 sources)OB RemindersOnset: 168876-88-7867 Past or Other Problems Problem ClassificationProblemDateDocumented DateEpisodic/ChronicAbdominal pain (20 sources)Pelvic and perineal pain; Translations: [Pain in female pelvis] Onset: 26-30-5033DirwmqgkNydfk female genital disorders (4 sources)Other specified conditions associated with female genital organs and menstrual cycle; Translations:[OTH SPEC COND FE GEN ORG MENST CYCL]Onset: 14-46-9456IiqavaxlSypwv female genital disorders (2 sources)Pain in female pelvis; Translations: [Pelvic pain in female]Onset: 352460-36-1264Tgzxglhu Results Test NameValueInterpretationReference RangeFacilityUrinalysis macro (dipstick) panel (U)on 31-40-1617Oywvpdkta, UANegativeNegative - 4(70) +++ mg/dLNOMS HealthcareBlood, UAPositiveNegative - 50 Ralf/mcLNOMS HealthcareComment on above: traceClarity, UAClearNOMS HealthcareColor, UAYellowNOMS HealthcareGlucose, UA NegativeNegative - 2000(110) ++++ mg/dLNOMS HealthcareInterpretation and review of laboratory resultsAbnormalNOMS HealthcareKetones, UANegativeNegative - 160(16) ++++ mg/dLNOMS HealthcareLeukocytes, UAPositiveNegative - 500+++ Joce/mcL NOMS HealthcareComment on above:3+Nitrite, UANegativeNegative - PositiveNOMS HealthcarepH, UA6.55 - 9NOMS HealthcareProtein, UANegativeNegative - 1999(20) ++++ mg/dLNOMS HealthcareSpec Grav, UA1.0151 - 1.03NOMS HealthcareUrobilinogen, UA0.20.2 - 12 mg/dLNOMS HealthcareNOMS HealthcareUrinalysis macro (dipstick) panel (U)on 22-60-3155Adlnebonw, UANegativeNegative - 4(70) +++ mg/dLNOMS HealthcareBlood, UAPositiveNegative - 50 Ralf/mcLNOMS HealthcareClarity, UAClear NOMS HealthcareColor, UAStrawNOMS HealthcareGlucose, UANegativeNegative - 1999(110) ++++ mg/dLNOMS HealthcareInterpretation and review of laboratory resultsAbnormalNOMS HealthcareKetones, UANegativeNegative - 160(16) ++++ mg/dL NOMS HealthcareLeukocytes, UAPositiveNegative - 500+++ Joce/mcLNOMS Healthcare Nitrite, UANegativeNegative - PositiveNOMS HealthcarepH, UA75 - 9N[facility] Healthcare Protein, UANegativeNegative - 1999(20) ++++ mg/dLNOMS HealthcareSpec Grav, UA 1.011 - 1.03NOMS HealthcareUrobilinogen, UA1.00.2 - 12 mg/dLNOMS HealthcareNOMS HealthcareUrinalysis macro (dipstick) panel (U)on 80-24-0073Cvtynnysk, UA PositiveNegative - 4(70) +++ mg/dLNOMS HealthcareBlood, UANegativeNegative - 50 Ralf/mcLNOMS HealthcareClarity, UAClearNOMS HealthcareColor, UAAmberNOMS HealthcareGlucose, UANegativeNegative - 1999(110) ++++ mg/dLNOMS Healthcare Interpretation and review of laboratory resultsAbnormalNOMS HealthcareKetones, UAPositiveNegative - 160(16) ++++ mg/dLNOMS HealthcareLeukocytes, UAPositive Negative - 500+++ Joce/mcLNOMS HealthcareNitrite, UANegativeNegative - Positive NOMS HealthcarepH, UA65 - 9NOMS HealthcareProtein, UAPositiveNegative - 1999(20) ++++ mg/dLNOMS HealthcareSpec Grav, UA1.031 - 1.03NOMS HealthcareUrobilinogen, UA>=8.00.2 - 12 mg/dLNOMS HealthcareNOMS HealthcareUS OB FOLLOW UP TRANSABDOMINAL APPROACHon 94-76-6369DD OB FOLLOW UP TRANSABDOMINAL APPROACH FINDINGS: Comparison [...] menstrual period. TRANSCRIBED BY: ELECTRONICALLY SIGNED BY: Amanda RojasalNot AvailableComment on above:Order Comment: US OB SCAN FOR GROWTH Estimated Date of Delivery: 01/10/25 Gestational Age as of 10/20/2024: 47w8pXwgykoshqp macro (dipstick) panel (U)on 22-43-8915Gnfpghcje, UANegativeNegative - 4(70) +++ mg/dLNOMS HealthcareBlood, UANegativeNegative - 50 Ralf/mcLNOMS HealthcareClarity, UAClearNOMS Healthcare Color, UAYellowNOMS HealthcareGlucose, UANegativeNegative - 2000(110) ++++ mg/dL NOMS HealthcareInterpretation and review of laboratory resultsNormalNOPR HealthcareKetones, UANegativeNegative - 160(16) ++++ mg/dLNOPR Healthcare Leukocytes, UANegativeNegative - 500+++ Joce/mcLNOPR HealthcareNitrite, UA NegativeNegative - PositiveNOPR HealthcarepH, UA6.55 - 9NOPR HealthcareProtein, UANegativeNegative - 1999(20) ++++ mg/dLNOPR HealthcareSpec Grav, UA1.0151 - 1.03NOPR HealthcareUrobilinogen, UA1.00.2 - 12 mg/dLNOPR HealthcareNOMS HealthcareALL CBC WITH AUTO DIFFon 49-38-9873CGERLBHLE ABSOLUTE AXFG2YUWD HealthcareBasophils/100 WBC (Bld)0.4 %0.2 - 2.0 %NOMS HealthcareEosinophils/100 WBC (Bld)1.9 %0.9 - 7.0 %NOMS HealthcareErythrocyte distribution width (RBC) [Ratio]12.3 %11.0 - 15.0 %NOMS HealthcareHematocrit (Bld) [Volume fraction]35.7 %Low36.0 - 48.0 %NOMS HealthcareHemoglobin (Bld) [Mass/Vol]12.2 g/dL12.0 - 16.0 g/dLNOPR HealthcareIMMATURE GRANULOCYTES ABS AUTO0.04HighNOPR HealthcareImmature granulocytes/100 WBC (Bld)0.4 %0.0 - 0.5 %NOMS HealthcareInterpretation and review of laboratory resultsAbnormalNOPR HealthcareLYMPHOCYTES ABSOLUTE AUTO2 NOMS HealthcareLymphocytes/100 WBC (Bld)19.8 %Low20.5 - 60.0 %NOMSt. Louis Behavioral Medicine InstituteMCH (RBC) [Entitic mass]31.5 pg26.7 - 34.0 pgNOSoutheast Missouri HospitalMCHC (RBC) [Mass/Vol] 34.2 g/dL29.9 - 35.2 g/dLNOSoutheast Missouri HospitalMCV (RBC) [Entitic vol]92.2 fL81.0 - 99.0 fLNOPR HealthcareMONOCYTES ABSOLUTE AUTO0.6NOPR HealthcareMonocytes/100 WBC (Bld)6.4 %1.7 - 12.0 %NOM HealthcareNEUTROPHILS ABSOLUTE AUTO7.1HighNOMS HealthcareNeutrophils/100 WBC (Bld)71.1 %43.0 - 75.0 %NOMS HealthcarePlatelet mean volume (Bld) [Entitic vol]9.8 fL9.5 - 13.5 fLNOMS HealthcareTBH EO #0.2NOMS HealthcareTBH IKA340NECI HealthcareTBH RBC3.87LowNOMS HealthcareTBH SCR65HBUQ HealthcareCLINISYNCNOMS HealthcareIGP,APTIMA HPV,AGE GDLNon 67-85-9918ERK GDLN ACOG TESTINGNote.[facility] HealthcareComment on above:TESTS RESULT FLAG UNITS REF RANGE LAB Clinician Provided Cytology Information Source.............Vagina No. of containers..01 ThinPrep Vial Age Algo ACOG Lorena... -26 04 FLAG LEGEND: L-Low Normal,H-High Normal,LL-Alert Low,HH-Alert High <-Panic Low,>-Panic High,A-Abnormal,AA-Critical Abnormal Performed at: 01 =G [facility] [address] Leia Carbajal MD, IGP, RFX APTIMA HPV ASCUNote.[facility] HealthcareComment on above:TESTS RESULT FLAG UNITS REF RANGE LAB DIAGNOSIS: 02 NEGATIVE FOR INTRAEPITHELIAL LESION OR MALIGNANCY. Specimen adequacy: 02 Satisfactory for evaluation. Performed by: 02 Alicia Hanson, Electrical Wirer ([facility]) . 02 Note: Note 03 The Pap [...] <-Panic Low,>-Panic High,A-Abnormal,AA-Critical Abnormal Performed at: 02 [facility] [address] [place] [address] Carter Hall MD, 03 [facility] [address] [address] Leia Carbajal MD, Performed at: =G - [facility] [address] [id number] Pad Extractor Tender: Leia Carbajal MD, Phone: [phone] Performed at: [facility] - [facility] [address] [address] [place], [place] [id number] Pad Extractor Tender: Carter Hall MD, Phone: [phone] SPATULA-ALONE VAGINA CLINISYNCNOMS HealthcareRECURRENT VAGINITIS (HTRX)on 85-90-2065YERNCZOKJ VAGINAE 20.937AbnormalNOMS HealthcareATOPOBIUM VAGINAEDetectedAbnormalNOMS Healthcare BVAB 2,3 (BACTERIAL VAGINOSIS ASSOCIATED BACTERIA 2, 3); MOBILUNCUS JUV1HBQD HealthcareBVAB 2,3 (BACTERIAL VAGINOSIS ASSOCIATED BACTERIA 2, 3); MOBILUNCUS SPPNot detectedNOMS HealthcareCANDIDA ALBICANS, PARAPSILOSIS, MMGSGPDZFU0WUDC HealthcareCANDIDA ALBICANS, PARAPSILOSIS, TROPICALISNot detectedNOMS Healthcare RENE SHOIHAOP7LVJT HealthcareCANDIDA GLABRATANot detectedNOMS Healthcare RENE JWIFCA5RTPM HealthcareCANDIDA KRUSEINot detectedNOMS HealthcareCHLAMYDIA JKHCLVLCKIX17.087AbnormalNOMS HealthcareCHLAMYDIA TRACHOMATISDetectedAbnormal NOMS HealthcareERMB, C; MEFA16.837AbnormalNOMS HealthcareERMB, C; MEFADetected AbnormalNOMS HealthcareGARDNERELLA SDBRELNFP02.175AbnormalNOMS Healthcare GARDNERELLA VAGINALISDetectedAbnormalNOMS HealthcareInterpretation and review of laboratory resultsAbnormalNOMS HealthcareMEGASPHAERA (TYPES 1, 2)17.801Abnormal NOMS HealthcareMEGASPHAERA (TYPES 1, 2)DetectedAbnormalNOMS HealthcareMYCOPLASMA ULRNNDNXGJ1LBCM HealthcareMYCOPLASMA GENITALIUMNot detectedNOMS Healthcare NEISSERIA YHHZJNXTDQK0UOUE HealthcareNEISSERIA GONORRHOEAENot detectedNOMS HealthcareTET B, TET M18.436AbnormalNOMS HealthcareTET B, TET MDetectedAbnormal NOMS HealthcareTRICHOMONAS VMXVIIWBM5NJNF HealthcareTRICHOMONAS VAGINALISNot detectedNOMS HealthcareNOMS HealthcareUrinalysis macro (dipstick) panel (U)on 23-61-4214Bqqmwttun, UANegativeNegative - 4(70) +++ mg/dLNOMS HealthcareBlood, UANegativeNegative - 50 Ralf/mcLNOMS HealthcareClarity, UAClearNOMS Healthcare Color, UAYellowNOMS HealthcareGlucose, UANegativeNegative - 2000(110) ++++ mg/dL NOMS HealthcareInterpretation and review of laboratory resultsAbnormalNOMS HealthcareKetones, UANegativeNegative - 160(16) ++++ mg/dLNOMS Healthcare Leukocytes, UATraceNegative - 500+++ Joce/mcLNOMS HealthcareNitrite, UANegative Negative - PositiveNOMS HealthcarepH, UA75 - 9NOMS HealthcareProtein, UATrace Negative - 2000(20) ++++ mg/dLNOMS HealthcareSpec Grav, UA1.021 - 1.03NOMS HealthcareUrobilinogen, UA2.00.2 - 12 mg/dLNOMS HealthcareNOMS HealthcareUS OB INCOMPLETE ANATOMYon 09-95-2731[place] [address] Ultrasound Report Signed Patient: LOYDA ADAME MR#: [id number] : 2000 Acct:[id number] Age/Sex: 24 / F ADM Date: 09/26/24 Loc: US Attending Dr: Rosalva Welsh D.O. Ordering Physician: Rosalva Welsh D.O. Date of Service: 09/26/24 Procedure(s): US OB incomplete anatomy Accession Number(s): [id number] cc: Rosalva Welsh D.O.; Shaw Jorgensen M.D. [facility] [place] [id number] Patient Name: LOYDA ADAME MRN: [id number] date: 2000 Sex: F Assigned Patient Location: US Current Patient Location: US Accession/Order Number: [id number] Exam Date: 09/26/2024 10:11 Report Date: 09/26/2024 [...] Boyd M.D. 09/26/2024 10:13 AM Dictation Location: [place] [address] Electronically authenticated by: [id number] Y Date: 09/26/2024 10:13 Dictated By: Gina Boyd M.D. Signed By: 09/26/24 1016 DD/ 1013 TD/TT: Cancer Researcher:TBHRadiology, Radiologist, - 09/26/2024 [place] [address] Ultrasound Report Signed Patient: LOYDA ADAME MR#: [id number] : 2000 Acct:[id number] Age/Sex: 24 / F ADM Date: 09/26/24 Loc: US Attending Dr: Rosalva Welsh D.O. Ordering Physician: Rosalva Welsh D.O. Date of Service: 09/26/24 Procedure(s): US OB incomplete anatomy Accession Number(s): [id number] cc: Rosalva Welsh D.O.; Shaw Jorgensen M.D. [facility] [place] [id number] Patient Name: LOYDA ADAME MRN: [id number] date: 2000 Sex: F Assigned Patient Location: US Current Patient Location: US Accession/Order Number: [id number] Exam Date: 09/26/2024 10:11 Report Date: 09/26/2024 [...] Boyd M.D. 09/26/2024 10:13 AM Dictation Location: [place] [address] Electronically authenticated by: [id number] Y Date: 09/26/2024 10:13 Dictated By: Gina Boyd M.D. Signed By: 09/26/24 1016 DD/ 1013 TD/TT: Cancer Researcher: [facility] HealthcareRadiology Study observation (narrative)[facility] HealthcareUS OB INCOMPLETE ANATOMYOrdered By: Radiologist Radiology on 92-25-8618YGIY [employer] Work Phone: US OB 14+ WEEKS ANATOMY SCANon 84-64-3569CT OB 14+ WEEKS ANATOMY SCANEXAM: US OB 14+ WEEKS ANATOMY SCAN HISTORY: Anatomy. JAN 01/10/2025. A1. COMPARISON: U/S OB 08/05/2024 TECHNIQUE: Two-dimensional transabdominal grayscale ultrasound imaging of the pelvis was performed.Transvaginal ultrasound examination was also performed. FINDINGS: Gestation: [...] thickened crazy somebody wishes to and I cannot I can not inhale you actually externally [...] II, MD, PHD at 30-Aug-2024 11:32:36 PM [facility] TeleradiologyNormalNot AvailableComment on above:Order Comment: US OB ANATOMY SINGLE W US OB CERVICAL LENGTH Estimated Date of Delivery: 01/10/25 Gestational Age as of 08/05/2024: 41x4fToicuduqdv macro (dipstick) panel (U)on 13-80-5374Zpbxbqunu, UANegativeNegative - 4(70) +++ mg/dLNOMS HealthcareBlood, UANegativeNegative - 50 Ralf/mcLNOPR HealthcareClarity, UAClearNOMS Healthcare Color, UAYellowNOMS HealthcareGlucose, UANegativeNegative - 2000(110) ++++ mg/dL [facility] HealthcareInterpretation and review of laboratory resultsNormalNOPR HealthcareKetones, UANegativeNegative - 160(16) ++++ mg/dLNOMS Healthcare Leukocytes, UANegativeNegative - 500+++ Joce/mcLNOMS HealthcareNitrite, UA NegativeNegative - PositiveNOMS HealthcarepH, UA75 - 9NOMS HealthcareProtein, UA NegativeNegative - 2000(20) ++++ mg/dLNOMS HealthcareSpec Grav, UA1.011 - 1.03 NOMS HealthcareUrobilinogen, UA0.20.2 - 12 mg/dLNOMS HealthcareNOPR Healthcare TBH DRUG SCREEN RAPID (URINE)on 01-79-8167FZJXTFQOECH SCREEN URINENegative NEGATIVENOMS HealthcareBARBITURATES SCREEN URINENegativeNEGATIVENOMS Healthcare BENZODIAZEPINES SCREEN URINENegativeNEGATIVENOMS HealthcareBUPRENORPHINE SCREEN URINENegativeNEGATIVENOMS HealthcareComment on above:DRUG CLASS TEST SYSTEM CUT- OFF CONCENTRATIONS ARE FOLLOWS: AMP (Amphetamine): 500 ng/mL BAR (Barbiturates): 200 ng/mL BZO (Benzodiazepines): 150 ng/mL BUP (Buprenorphine): 10 ng/mL MILO (Cocaine): 150 ng/mL mAMP (Methamphetamine): 500 ng/mL MTD (Methadone): 200 ng/mL OPI (Opiates): 100 ng/mL OXY (Oxycodone): 100 ng/mL PCP (Phencyclidine): 25 ng/mL THC (Cannabinoids): 50 ng/mL TCA (Trycyclic Antidepressants): 300 ng/mL CANNABINOID SCREEN URINENegativeNEGATIVENOMS HealthcareCOCAINE SCREEN URINE NegativeNEGATIVENOMS HealthcareMETHADONE SCREEN URINENegativeNEGATIVENOMS HealthcareMETHAMPHETAMINES SCREEN URINENegativeNEGATIVENOMS HealthcareOPIATE SCREEN URINENegativeNEGATIVENOMS HealthcareOXYCODONE SCREEN URINENegative NEGATIVENOMS HealthcarePHENCYCLIDINE SCREEN URINENegativeNEGATIVENOMS Healthcare TRICYCLIC ANTIDEPRESSANT URINENegativeNEGATIVENOMS HealthcareCLINISYNCNOMS HealthcareALL CBC WITH AUTO DIFFon 19-89-6338RJGLRUYUN ABSOLUTE TOLP4TBPE HealthcareBasophils/100 WBC (Bld)0.5 %0.2 - 2.0 %NOMS HealthcareEosinophils/100 WBC (Bld)2 %0.9 - 7.0 %NOMS HealthcareErythrocyte distribution width (RBC) [Ratio]13.8 %11.0 - 15.0 %NOMS HealthcareHematocrit (Bld) [Volume fraction]35.4 %Low36.0 - 48.0 %NOMS HealthcareHemoglobin (Bld) [Mass/Vol]12.3 g/dL12.0 - 16.0 g/dLNOPR HealthcareIMMATURE GRANULOCYTES ABS AUTO0.03NOMS HealthcareImmature granulocytes/100 WBC (Bld)0.4 %0.0 - 0.5 %[facility] HealthcareInterpretation and review of laboratory resultsAbnormalNOMS HealthcareLYMPHOCYTES ABSOLUTE AUTO1.3 NOMS HealthcareLymphocytes/100 WBC (Bld)15.5 %Low20.5 - 60.0 %[facility] HospitalH (RBC) [Entitic mass]31.6 pg26.7 - 34.0 pgNOOzarks Community HospitalHC (RBC) [Mass/Vol] 34.7 g/dL29.9 - 35.2 g/dLSac-Osage HospitalV (RBC) [Entitic vol]91 fL81.0 - 99.0 fLEastern Missouri State HospitalMONOCYTES ABSOLUTE AUTO0.5NOPR HealthcareMonocytes/100 WBC (Bld)5.9 %1.7 - 12.0 %[facility] HospitalNEUTROPHILS ABSOLUTE AUTO6.1[facility] Neutrophils/100 WBC (Bld)75.7 %High43.0 - 75.0 %[facility] HospitalPlatelet mean volume (Bld) [Entitic vol]9.5 fL9.5 - 13.5 fLEastern Missouri State HospitalTBH EO #0.2NOMS HealthcareTBH [id number] Memorial Health SystemTB RBC3.89LowNOSoutheast Missouri HospitalTB WBC8.1NOMS HealthcareCLINISYNCNOMS HealthcareUS OB LIMITED 1+ FETUSESon 67-92-2368DC OB LIMITED 1+ FETUSESEXAM: US OB LIMITED 1+ FETUSES HISTORY: Dating. [...] II, MD, PHD at 07-Aug-2024 08:22:24 PM [facility] TeleradiologyNormalNot AvailableComment on above:Order Comment: US OB TRANSVAGINAL No LMP recorded.General Surgery Office/Clinic Noteon 89-04-2183Nmxfjjg Surgery Office/Clinic NoteGeneral Surgery Office/Clinic Note Chief Complaint update H&P [...] swallowing difficulties, no hearing loss, no ear infection(s),no nose bleeds. Cardiovascular: normal blood pressure, no [...] Immunizations Vaccine Date Status Comments SARS-CoV-2 (COVID-19) mRNAMUL.ORD![id number] 03/10/2022 Recorded SARS-CoV-2 (COVID-19) mRNA BNT-162b2 vax 09/07/2020 Recorded 2023-12-25: TPVAL SARS-CoV-2 (COVID-19) mRNA BNT-162b2 vax 08/17/2020 Recorded 2023-12-25: TPVAL [facility] HospitalComment on above:Result Comment: Electronically Signed By: DEJAH ARDON, Israel Gonzalez\.br\Date and Time Signed: 04/11/24 16:18 EST Ambulatory Visit Summaryon 20-45-6476Kdmhgxlafo Visit SummaryAmbulatory Visit Summary LOYDA ADAME :2000 Visit Date:12/31/2023 [...] you for choosing us for your care. [facility] HospitalUS PELVIS W/ TRANSVAGINALon 75-20-1630[place]ma[place] [address] Ultrasound Report Signed Patient: LOYDA ADAME MR#: [id number] : 2000 Acct:[id number] Age/Sex: 23 / F ADM Date: 08/05/23 Loc: US Attending Dr: Tran Perez Ordering Physician: Tran Perez Date of Service: 08/05/23 Procedure(s): US pelvis w/ transvaginal Accession Number(s): [id number] cc: Tran Perez; Shaw Jorgensen M.D. [address] [address] Patient Name: LOYDA ADAME MRN: [id number] date: 2000 Sex: F Assigned Patient Location: US Current Patient Location: US Accession/Order Number: [id number] Exam Date: 08/05/2023 08:20 Report Date: 08/05/2023 [...] M.D. Signed By: 08/05/23915 DD/ 3 TD/TT: Cancer Researcher:TBHRadiology, Radiologist, - 08/05/2023 [place] [address] Ultrasound Report Signed Patient: LOYDA ADAME MR#: [id number] : 2000 Acct:[id number] Age/Sex: 23 / F ADM Date: 08/05/23 Loc: US Attending Dr: Tran Perez Ordering Physician: Tran Perez Date of Service: 08/05/23 Procedure(s): US pelvis w/ transvaginal Accession Number(s): [id number] cc: Tran Perez; Shaw Jorgensen M.D. The [address] [address] Patient Name: LOYDA ADAME MRN: [id number] date: 2000 Sex: F Assigned Patient Location: US Current Patient Location: US Accession/Order Number: [id number] Exam Date: 08/05/2023 08:20 Report Date: 08/05/2023 [...] M.D. Signed By: 08/05/23915 DD/ 3 TD/TT: Cancer Researcher: [facility] HealthcareRadiology Study observation (narrative)[facility] HospitalUS PELVIS W/ TRANSVAGINALOrdered By: Radiologist Radiology on 76-93-1841NAHW [facility] Work Phone: US PELVIS W/ TRANSVAGINALon 72-14-3822[place]lk[place] [address] Ultrasound Report Signed Patient: LOYDA ADAME MR#: [id number] : 2000 Acct:[id number] Age/Sex: 23 / F ADM Date: 04/15/23 Loc: US Attending Dr: Rosalva Welsh D.O. Ordering Physician: Rosalva Welsh D.O. Date of Service: 04/15/23 Procedure(s): US pelvis w/ transvaginal Accession Number(s): [id number] cc: Rosalva Welsh D.O.; Shaw Jorgensen M.D. [address] [address] Patient Name: LOYDA ADAME MRN: [id number] date: 2000 Sex: F Assigned Patient Location: US Current Patient Location: US Accession/Order Number: [id number] Exam Date: 04/15/2023 14:09 Report Date: 04/15/2023 [...] Signed By: 04/15/23 1528 DD/ 1525 TD/TT: Cancer Researcher:TBHRadiology, Radiologist, - 04/15/2023 [place] [address] Ultrasound Report Signed Patient: LOYDA ADAME MR#: [id number] : 2000 Acct:[id number] Age/Sex: 23 / F ADM Date: 04/15/23 Loc: US Attending Dr: Rosalva Welsh D.O. Ordering Physician: Rosalva Welsh D.O. Date of Service: 04/15/23 Procedure(s): US pelvis w/ transvaginal Accession Number(s): [id number] cc: Rosalva Welsh D.O.; Shaw Jorgensen M.D. The [place] [id number] Patient Name: LOYDA ADAME MRN: [id number] date: 2000 Sex: F Assigned Patient Location: US Current Patient Location: US Accession/Order Number: [id number] Exam Date: 04/15/2023 14:09 Report Date: 04/15/2023 [...] Signed By: 04/15/23 1528 DD/ 1525 TD/TT: Cancer Researcher: ANA LUISA HealthcareRadiology Study observation (narrative)ANA LUISA HealthcareUS PELVIS W/ TRANSVAGINALOrdered By: Radiologist Radiology on 22-24-1697APXQ [facility] Work Phone: QUANTIFERON TB GOLD PLUSon 80-24-1390AykrwnQMBFI CriteriaComKettering HealthComment on above:Result Comment: QuantiFERON-TB Gold Plus is a qualitative indirect test for M tuberculosis infection (including disease) and is intended for use in conjunction with risk assessment, radiography, and other medical and diagnostic evaluations. The QuantiFERON-TB Gold Plus result is determined by subtracting the Nil value from either TB antigen (Ag) value. The Mitogen tube serves as a control for the test.Performed By: #### QNTTB #### [facility] [address] [place] [address] Dr. Elie Lawton IncubationIncubation performed.NormalBrecksville Va / Crille HospitalComment on above:Performed By: #### QNTTB #### [facility] [address] [place] [address] Dr. Elie Lawton Mitogen Value>10.00NormalThCommunity Regional Medical CenterComment on above:Performed By: #### QNTTB #### [facility] [address] [place] [address] Dr. Elie Lawton Nil Value0.05 IU/mLNOhio Valley HospitalComascension river district hospital on above:Performed By: #### QNTTB #### [facility] [address] [place] [address] Dr. Elie Lawton TB1 Ag Value0.06 IU/mLNOhio Valley Hospital Comment on above:Performed By: #### QNTTB #### [facility] [address] [place] [address] Dr. Elie Lawton TB2 Ag Value0.07 IU/mLNOhio Valley Hospital Comment on above:Performed By: #### QNTTB #### [facility] [address] [place] [address] Dr. Elie Lawton-TB Gold PlusNegativeNormalNegativeSt. Mary's Medical Center on above:Result Comment: No response to M tuberculosis antigens detected. Infection with M tuberculosis is unlikely, but high risk individuals should be considered for additional testing (ATS/IDSA/CDC Clinical Practice Guidelines, 2017). The reference range is an Antigen minus Nil result of <0.35 IU/mL. Chemiluminescence immunoassay methodologyPerformed By: #### QNTTB #### [facility] [address] [place] [address] Dr. Elie Chau SURFACE ANTIBODY, QUANTon 54-31-4947Seczubhsx B Surf AB Quant<3.1Critically lowImmunity>9.9The [facility] Hospitalment on above: Result Comment: Status of Immunity Anti-HBs Level Inconsistent with Immunity 0.0 - 9.9 Consistent with Immunity >9.9Performed By: #### HEPBSRF #### [facility] [address] [place] [address] Dr. Elie uH IMMUNITYon 57-46-1147Tnoqh Abs, ObM079.0 AU/mLNormalImmune >10.9The [facility] HospitalComment on above:Result Comment: Negative <9.0 Equivocal 9.0 - 10.9 Positive >10.9 A positive result generally indicates past exposure to Mumps virus or previous vaccination.Performed By: #### MMRIMMU #### [place] [address] Dr. Elie Leonard Antibodies, IgG3.97 indexNormalImmune >0.99The [facility] on above:Result Comment: Non-immune <0.90 Equivocal 0.90 - 0.99 Immune >0.99Performed By: #### MMRIMMU #### [facility] [address] [place] [address] Dr. Elie Villarreal Ab, IgG>300.0NormalImmune >16.4The [facility] Comment on above:Result Comment: Negative <13.5 Equivocal 13.5 - 16.4 Positive >16.4 Presence of antibodies to Rubeola is presumptive evidence of immunity except when acute infection is suspected.Performed By: #### MMRIMMU #### [facility] [address] [place] [address] Dr. Elie MilanVARICELLA IGG ABon 52-72-2742Qcjrpiqrp Zoster QyO4962 indexNormal Immune >165The [facility] on above:Result Comment: Negative <135 Equivocal 135 - 165 Positive >165 A positive result generally indicates exposure to the pathogen or administration of specific immunoglobulins, but it is not indication of active infection or stage of disease.Performed By: #### VARCEL #### [facility] [address] [place] [address] Dr. Elie Oneill PELVIS AND TRANSVAGon 81-26-6574BZ PELVIS AND TRANSVAG EXAMINATION: US PELVIS AND [...] Electronically authenticated by: NIKO FOREMAN Date: 2022-02-04 20:13[facility] Regional Medical CenterHCG-BETA SUBUNIT QUANTon 14-38-7067qKS,Beta Subunit,Qnt,Serum<1 NormalThe [facility] Community HospitalComment on above:Result Comment: Female (Non- ) 0 - 5 (Postmenopausal) 0 - 8 . Female () Weeks of Gestation 3 6 - 71 4 10 - 750 5 736 - 3038 6 389 - 35141 7 6043 -710326 8 51312 -132635 9 47875 -162536 10 41646 -235825 12 74601 -326882 14 60326 - 58415 15 51671 - 15053 16 1018 - 82629 17 2433 - 05981 18 5981 - 79942 Tanesha ECLIA methodologyPerformed By: #### HCGSUB #### [facility] [address] [place] [address] Dr. Elie MilanCBC AUTO DIFFon 19-81-7501VLUO #0.1 103/ulNormal0.0-0.1The [facility] HospitalComment on above:Performed By: #### CBC #### [facility] [address] [place] [address] Dr. Elie MilanBasophils/100 WBC (Bld)1.1 %Normal0.2-2.0The [facility] Comment on above:Performed By: #### CBC #### [facility] [address] [place] [address] Dr. Elie Voss #0.3 103/ulNormal0.0-0.7The [facility] HospitalComment on above: Performed By: #### CBC #### [facility] [address] [place] [address] Dr. Elie Rangelosinophils/100 WBC (Bld)4.6 %Normal0.9-7.0The [facility] Comment on above:Performed By: #### CBC #### [facility] [address] [place] [address] Dr. Elie Rangelrythrocyte distribution width (RBC) [Ratio]11.9 %Zuxkla22.0-15.0 The [facility] Hospitalment on above:Performed By: #### CBC #### [facility] [address] [place] [address] Dr. Elie MilanHematocrit (Bld) [Volume fraction]41.0 %Itxcus04.0-48.0The [facility] HospitalComment on above:Performed By: #### CBC #### [facility] [address] [place] [address] Dr. Elie MilanHemoglobin (Bld) [Mass/Vol]14.0 g/iZEykkeg50.0-16.0The [facility] Hospitalment on above:Performed By: #### CBC #### [facility] [address] [place] [address] Dr. Elie Trujillo #0.02 10e3/ulNormal0.00-0.03The [facility] Hospitalment on above:Performed By: #### CBC #### [facility] [address] [place] [address] Dr. Elie Trujillo %0.3 %Normal0.0-0.5The [facility] HospitalComment on above: Performed By: #### CBC #### [facility] [address] [place] [address] Dr. Elie aSlter #1.3 103/ulNormal1.2-3.8The [facility] HospitalComment on above:Performed By: #### CBC #### [facility] [address] [place] [address] [address] Elie Torresmphocytes/100 WBC (Bld)17.9 %Critically low20.5-60.0The [facility] HospitalComment on above:Performed By: #### CBC #### [facility] [address] [place] [address] [address] Elie Parker DIFF REQNONormalThe [facility] Community HospitalComment on above: Performed By: #### CBC #### [facility] [address] [place] [address] [address] Elie Gooden (RBC) [Entitic mass]30.9 ysUyrmdl09.7-34.0The [facility] HospitalComment on above:Performed By: #### CBC #### [facility] [address] [place] [address] Dr. Elie Gooden (RBC) [Mass/Vol]34.1 g/bQQovfsu13.9-35.2The [facility] HospitalComment on above:Performed By: #### CBC #### [facility] [address] [place] [address] Dr. Elie Gooden (RBC) [Entitic vol]90.5 oRGebcqt98.0-99.0The [facility] HospitalComment on above:Performed By: #### CBC #### [facility] [address] [place] [address] Dr. Elie Diallo #0.5 103/ulNormal0.3-0.8The [facility] Hospitalment on above:Performed By: #### CBC #### [facility] [address] [place] [address] Dr. Elie Aguilarocytes/100 WBC (Bld)7.3 %Normal1.7-12.0The [facility] on above:Performed By: #### CBC #### [facility] [address] [place] [address] Dr. Elie Church #4.8 103/ulNormal1.4-6.5The [facility] HospitalComment on above:Performed By: #### CBC #### [facility] [address] [place] [address] [address] Elie Kenyonutrophils/100 WBC (Bld)68.8 %Zmxwih01.0-75.0The [facility] HospitalComment on above:Performed By: #### CBC #### [facility] [address] [place] [address] [address] Elie MilanPlatelet mean volume (Bld) [Entitic vol]9.9 fLNormal9.5-13.5The [facility] HospitalComment on above:Performed By: #### CBC #### [facility] [address] [place] [address] Dr. Elie MilanPLT223 103/xzJfgkaq000-902Ixt [facility] HospitalComment on above: Performed By: #### CBC #### [facility] [address] [place] [address] Dr. Elie MilanRBC4.53 106/ulNormal4.20-5.40The [facility] HospitalComment on above:Performed By: #### CBC #### [facility] [address] [place] [address] Dr. Elie MilanWBC7.0 103/ulNormal4.0-11.0The [facility] HospitalComment on above: Performed By: #### CBC #### [facility] [address] [place] [address] Dr. Elie MilanHCG-BETA SUBUNIT QUANTon 23-64-9566fMS,Beta Subunit,Qnt,Serum<1 NormalThe [facility] Community HospitalComment on above:Result Comment: Female (Non- ) 0 - 5 (Postmenopausal) 0 - 8 . Female () Weeks of Gestation 3 6 - 71 4 10 - 750 5 007 - 9528 6 785 - 19413 7 8207 -331806 8 85779 -802216 9 62361 -715264 10 77748 -646803 12 98904 -729830 14 49554 - 28715 15 82429 - 04736 16 1610 - 88271 17 5231 - 53190 18 2258 - 49714 [employer] ECLIA methodologyPerformed By: #### HCGSUB #### [facility] [address] [place] [address] Dr. Elie Oneill PELVIS TRANSVAGon 19-85-4795EQ PELVIS TRANSVAGEXAMINATION: US PELVIS TRANSVAG HISTORY: Pelvic and perineal [...] Electronically authenticated by: NIKO FOREMAN Date: 2021-10-08 16:31[facility] Medical CenterCNOVSPon 05-13-8827OREXJPTdbos (SP) Office (IFTIKHAR) MIKE ADAMEEKAH ([id number]) 2000 F Date Time Provider Department 05/17/19 10:45 AM FORD MORGAN) IFTIKHAR During your visit today, we recorded the following information about you: Temperature Pulse Respiration Blood pressure 98.2 degrees 86/minute 18/minute 121/71 Weight Height 56.8 kg 1.632 m Ford Morgan MD 05/17/2019 2:07 PM Signed PATIENT NAME: Loyda Adame CLINIC NO.: [id number] ATTENDING PHYSICIAN: Ford Morgan MD DATE OF SERVICE: May 17, 2019 This document has been created with the use of voice recognition technology. It may contain inaccuracies, misspellings, inaccurate syntax or inappropriate word context that escaped review. Dear Dr. Ford Morgan MD [address] [place] [address] here is an update on a follow [...] do not hesitate to contact me at [phone]. Ford Morgan MD Hematology/Medical Oncology [facility] CC: Shaw Jorgensen Referring Provider: FORD MORGAN) [[id number]] Allergies As of Date: 05/17/2019 (No Known [...] Encounter Status:Closed by FORD MORGAN MD on 05/17/19[facility] [id number] ID: [id number] Author: Ford Morel) Cathy Service: ? Author Type: Physician Type: Progress Notes Filed: 05/17/2019 2:07 PM Note Text: PATIENT NAME: Loyda Adame CLINIC NO.: [id number] ATTENDING PHYSICIAN: Ford Morgan MD DATE OF SERVICE: May 17, 2019 This document has been created with the use of voice recognition technology. It may contain inaccuracies, misspellings, inaccurate syntax or inappropriate word context that escaped review. Dear Dr. Ford Morgan MD [address] [place] [address] here is an update on a follow [...] do not hesitate to contact me at [phone]. Ford Morgan MD Hematology/Medical Oncology [facility] CC: Shaw DiasgriffinCincinnati Shriners HospitalAPTDignity Health East [facility] 23-95-9573bMPZ Coag (Bld) [Time]27.1 gIkalma56.0-32.4COur [facility] of Mercy [facility] on above:Result Comment: Unfractionated Heparin Therapeutic Ranges: Standard Heparin Nomogram: 53 to 78 seconds (anti-Xa level of 0.3 to 0.7 U/ml) Low Dose/ACS Nomogram: 49 to 67 seconds (anti-Xa level of 0.2 to 0.5 U/ml) Stroke Treatment Nomogram: 49 to 67 seconds (anti-Xa level of 0.2 to 0.5 U/ml) Note: The APTT therapeutic range has been determined for the current lot of laboratory APTT reagentin use throughout the [facility]. Performed By: #### PRSCLT, PTT, PT, PRCFUN #### [facility] [address] [place], [place] [address] Itdaxih C Functionalon 97-72-6076Wfdquyb [Mass/Vol]89 %Smybif91-161 [facility] on above:Performed By: #### PRSCLT, PTT, PT, PRCFUN #### [facility] [address] [place], [place] [address] Usyzrpa S Clottableon 75-83-4844Klsbqnq S Rowatzclu90 %Pfe04-122 [facility] on above:Result Comment: Result rechecked. Decreased clottable protein S. This could [...] to establish a diagnosis of protein S deficiency.Performed By: #### PRSCLT, PTT, PT, PRCFUN #### [facility] [address] [place], [place] [address] [phone] 44-81-1077GK Coag (PPP) [Time]10.2 sNormal9.7-13.0 [facility]riners HospitalComment on above:Performed By: #### PRSCLT, PTT, PT, PRCFUN #### [facility] [address] [place], [place] [address] PT Coag (PPP) [Time]0.9 sNormal0.9-1.3CMemorial Health System [facility] Comment on above:Result Comment: Vitamin K Antagonist (VKA) Therapeutic Range: INR 2 to 3 (Target INR of 2.5) Note: For patients treated with VKA drugs, such as warfarin, the [employer] 2012 Guideline recommends [...] Deo RA, et al. JACC 2017, 70: 252-289Performed By: #### PRSCLT, PTT, PT, PRCFUN #### [facility] [place], [place] [address] [phone] 02-59-3455HNBLQBVfulb (SP) Office (HEMASA) LOYDA ADAME ([id number]) 2000 F Date Time Provider Department 04/12/19 4:15 PM FORD MORGAN) IFTIKHAR During your visit today, we recorded the following information about you: Temperature Pulse Respiration Blood pressure 97.8 degrees 90/minute 18/minute 119/74 Weight Height 56.7 kg 1.632 m Ford Morgan MD 04/12/2019 4:48 PM Signed PATIENT NAME: Loyda Adame CLINIC NO.: [id number] ATTENDING PHYSICIAN: Ford Morgan MD DATE OF [...] Ford Morgan M.D. 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] Order(s):ACTIVATED PTT [SQPTT] Order #: [id number] FUTURE PROTHROMBIN TIME/PT [SQPT] Order #: [id number] FUTURE TUBES - DRAW EXTRA [SQXTUBE] Order #: [id number] FUTURE PROTEIN C FUNCT [SQPRCFUN] Order #: [id number] FUTURE PROTEIN S CLOTTABLE [SQPRSCLT] Order #: [id number] FUTURE Follow-up and Disposition History Recorded Prescriptions as of 04/12/2019 Sig: NORGESTIMATE 0.25 MG-ETHINYL * Take 1 tablet by mouth once d* Problem List As Of Date: 04/12/2019 (None) Encounter Status:Closed by FORD MORGAN MD on 04/12/19[facility] [id number] ID: [id number] Author: Ford Morgan Service: ? Author Type: Physician Type: Progress Notes Filed: 04/12/2019 4:48 PM Note Text: PATIENT NAME: Loyda Adame [facility] NO.: [id number] ATTENDING PHYSICIAN: Ford Morgan MD DATE OF [...] below. Ford Morgan M.D. Hematology/Medical Oncology [facility] [place] [phone] CC:NormalCincinnati Shriners Hospital Vital Signs Date TimeVital SignValuePerforming DmbiihrqmVhjwotwi19-07-8474 11:35-0400Body mass index (BMI) [Ratio]29.64 kg/f8Fkagp Anitha DO Work Phone: [phone] HospitalKezvwcecld98-04-6971 11:35-0400Body lljfio70.8 kg Rosalva Anitha DO Work Phone: [phone] [place] [address]-24-2025 11:35-0400Diastolic blood nkhxmhna44 mm[Hg]Rosalva Anitha DO Work Phone: [phone] [place], [place] [address]Stlyblxatw32-84-2887 11:35-0400Systolic blood wloshryc090 mm[Hg]Rosalva Anitha DO Work Phone: [phone] [place], [place] [address]Jirbdqnatl44-07-8221 10:51-0400Body mass index (BMI) [Ratio]29.31 kg/c1Fuong Anitha DO Work Phone: [phone]4[place] [address]Eclowvdtvj78-46-1439 10:51-0400Body .89 kgCorey Anitha DO Work Phone: [phone]-[facility] HospitalMdifqwoizk38-82-3526 10:51-0400Diastolic blood vgvaykmn25 mm[Hg]Rosalva Anitha DO Work Phone: [phone]4[place] [address]Rmpdsunuvm79-12-7250 10:51-0400Systolic blood tzhtodti026 mm[Hg]Rosalva Anitha DO Work Phone: [phone]-[facility] HospitalLiyzlovvaz46-04-4628 11:04-0400Body mass index (BMI) [Ratio]28.79 kg/c3DiimkbcoKhloe Garcia [employer] Work Phone: [facility] HospitalJvikulbhhf07-58-9913 11:04-0400Body tdhwsi89.47 kgKhloe Garcia [employer] Work Phone: [phone]-[facility] HospitalBmxsvnpuyu59-26-7476 11:04-0400Diastolic blood wplbqybe98 mm[Hg]Khloe Garcia [employer] Work Phone: [phone]-[facility] / NHRMCEastern [facility] State HospitalDbzljnmcal33-29-3324 11:04-0400Systolic blood mhtsfcvu348 mm[Hg]Khloe Garcia [employer] Work Phone: [facility] HospitalQjqvdobgcf93-72-3444 11:29-0400Body mass index (BMI) [Ratio]28.42 kg/e2Nghuk Anitha DO Work Phone: [phone] [place], [place] [address]Rsqdsryosu43-70-3045 11:29-0400Body hxzpee38.47 kgCorey Anitha DO Work Phone: [phone] [place], [place] [address]Rxtnituagp91-63-7531 11:29-0400Diastolic blood mm[Hg]Rosalva Anitha DO Work Phone: [phone] [place], [place] [address]Ojhjskxriz64-77-7449 11:29-0400Systolic blood pohdzwaz208 mm[Hg]Rosalva Anitha DO Work Phone: [phone] [place], [place] [address]Bgofcellgo79-28-9250 10:19-0400Body mass index (BMI) [Ratio]28.29 kg/m2Amy Jason PA Work Phone: [phone] [place], [place] [address]Beembselhq23-02-9715 10:19-0400Body rvabty15.11 kgAmy Jason PA Work Phone: [phone] [place], [place] [address]Xyywopgdcl81-52-0438 10:19-0400Diastolic blood vlpegbga55 mm[Hg]Tran Perez PA Work Phone: [phone] [place] [place], [place] [address]Jngceedpfp70-39-9797 10:19-0400Systolic blood txloolhs293 mm[Hg]Tran Perez PA Work Phone: [phone] [place], [place] [address]Kyonkgygvj43-48-7995 10:44-0400Body mass index (BMI) [Ratio]27.92 kg/m1Dktpp Anitha DO Work Phone: [phone] [place], [place] [address]Fzevyfsrqq49-09-5661 10:44-0400Body .11 kgCorey Anitha DO Work Phone: [phone] [place], [place] [address]Ffhyrnzqgg35-51-9379 10:44-0400Diastolic blood yphdsmbe80 mm[Hg]Rosalva Anitha DO Work Phone: [facility] HospitalRrfpkcpcre75-71-3134 10:44-0400Systolic blood mm[Hg]Rosalva Anitha DO Work Phone: [facility] HospitalFxujwtliog55-76-1047 11:12-0400Body mass index (BMI) [Ratio]27.22 kg/m2Tran Perez PA Work Phone: [facility] HospitalVrlgzyjsjo03-62-9386 11:12-0400Body xkwupz87.21 kgAmy [place] PA Work Phone: [facility] HospitalDwoekwfbom41-92-4243 11:12-0400Diastolic blood uhxtllhg34 mm[Hg]Tran Ansariey PA Work Phone: [facility] HospitalQyvzdkjdwo64-88-5126 11:12-0400Systolic blood xjeurupo990 mm[Hg]Tran Perez PA Work Phone: [facility] HospitalScfjnkoyce31-11-9251 14:46-0400Body mass index (BMI) [Ratio]26.21 kg/p0Onrkt Anitha DO Work Phone: [facility] HospitalXncgxtxgxw05-95-5234 14:46-0400Body iwfhgv17.44 kgCorey Anitha DO Work Phone: [facility] HospitalPvrvxhayoy27-91-4166 14:46-0400Diastolic blood wuusqmqu20 mm[Hg]Rosalva Anitha DO Work Phone: [facility] HospitalCgskrppxtx55-66-1788 14:46-0400Systolic blood ysqsxtav127 mm[Hg]Rosalva Anitha DO Work Phone: [facility] HospitalAcjridwftw04-70-9901 13:50-0500Blood Pressure LocationMichael NILL [phone]-[facility]cvgsNew[facility] 04-11-2024 13:50-0500Diastolic blood aosomvlg73 mm[Hg]Israel NILL [phone]-YziooOhio [facility] 04-11-2024 13:50-0500Heart rate87 /minMichael NILL [phone]-EhplbReg[facility] Hospital [facility] [place] 04-11-2024 13:50-0500Respiratory rate16 /minMichael NILL [phone]-CamkuNewark [facility] [place] 04-11-2024 13:50-0500Systolic blood mm[Hg]Israel NILL [phone]-KylkbRegency Hospital Company [facility] [place] 12-31-2023 08:48-0400Blood Pressure LocationMichael NILL [phone]-KzzubRegency Hospital Company [facility] [place] 12-31-2023 08:48-0400Diastolic blood enfszunm64 mm[Hg]Israel NILL [phone]-UkubhRegency Hospital Company [facility] [place] 12-31-2023 08:48-0400Heart rate81 /minMichael NILL [phone]-KrfnhOhio State Health System 12-31-2023 08:48-0400Respiratory rate16 /minMichael NILL [phone]-PuupdOhio State Health System 12-31-2023 08:48-0400Systolic blood tarmjqep007 mm[Hg]Israel NILL [phone]-RvhwbNewark [facility] [place] Encounters Encounter DateEncounter TypeCare ProviderFacilityStart: 12-21-2024 End: 93-83-4937Ctcggh flowsheetCorey Anitha DO Work Phone: [facility]BGYNStart: 12-21-2024 End: 91-64-3619Pmjjat flowsheetCorey Anitha DO Work Phone: [facility]BGYNStart: 12-21-2024 End: 74-36-1396Hlsxlb outpatient visit 15 minutesCorey Anitha DO Work Phone: [facility]ev OBGYNComment on above:Third trimester ([facility]); 37 weeks gestation of ([facility])Start: 12-21-2024 End: 21-71-5539yqqnpepxdvHVSST FAZIONot AvailableStart: 12-13-2024 End: 51-16-4801Quwstz flowsheetCorey Anitha DO Work Phone: [facility]BGYNStart: 12-13-2024 End: 14-04-6884Cdzkck flowsheetCorey Anitha DO Work Phone: [facility]BGYNStart: 12-13-2024 End: 20-07-4661uhwtrxuguuFUWUW FAZIONot AvailableStart: 12-13-2024 End: 73-40-3978Uejpsw outpatient visit 15 minutesCorey Anitha DO Work Phone: [facility] OBGYNComment on above:36 weeks gestation of ([facility]); Third trimester ([facility])Start: 12-01-2024 End: 88-58-4079Gqfulc flowsShan Garcia [employer] D[employer]ER Work Phone: [facility] OBGYNStart: 12-01-2024 End: 34-63-2858Yvrsqm flowsheetKhloe aGrcia [employer] D[employer]ER Work Phone: [facility] OBGYNStart: 12-01-2024 End: 95-34-5746awhvxpwadpFFBKBVYE EBERLYNot AvailableStart: 12-01-2024 End: 66-43-4577Biqszk outpatient visit 15 minutesKhloe Garcia [employer] D[employer]ER Work Phone: [facility]eev OBGYNComment on above:Third trimester ([facility]); 34 weeks gestation of ([facility])Start: 11-17-2024 End: 20-04-4354Alzune flowsheetCorey Anitha DO Work Phone: [facility] OBGYNStart: 11-17-2024 End: 67-97-6477Cvhgbg flowsheetCorey Anitha DO Work Phone: [facility] OBGYNStart: 11-17-2024 End: 99-27-7936pbogfagntbTPKQI FAZIONot AvailableStart: 11-17-2024 End: 13-36-9147Lzbcca outpatient visit 15 minutesCorey Anitha DO Work Phone: [facility] OBGYNComment on above:32 weeks gestation of ([facility]); Third trimester ([facility])Start: 11-02-2024 End: 03-82-7065Isuixe outpatient visit 15 minutesTran [place] Work Phone: [facility] OBGYNComment on above:Third trimester ([facility]); 30 weeks gestation of ([facility])Start: 11-02-2024 End: 31-23-5621ougbwyvhcnYAG Isaias AvailableStart: 10-20-2024 End: 80-38-2844Ratzgmycr Result EncounterAmy Jason [place] Work Phone: noMS External Department UnsolicitedStart: 10-20-2024 End: 93-94-1156Zqwjyzjtl Result EncounterAmy Jason [place] Work Phone: noms External Department UnsolicitedStart: 10-20-2024 End: 17-29-8801Xoeijh outpatient visit 15 minutesCorey Anitha DO Work Phone: [facility] OBGYNComment on above:28 weeks gestation of ([facility]); Third trimester ([facility]); Chlamydia trachomatis infectionStart: 10-20-2024 End: 40-42-3874xpkxssyzibXXCOD FAZIONot AvailableStart: 09-27-2024 End: 89-09-4861Walhwoaak Result EncounterAmy Jason [place] Work Phone: noms External Department UnsolicitedStart: 09-27-2024 End: 97-79-8186Kxeuvkia Result EncounterAmy Jason [place] Work Phone: noms External Department UnsolicitedStart: 09-27-2024 End: 51-16-6379Ltsmibzu Result EncounterTran Jason [place] Work Phone: noms External Department UnsolicitedStart: 09-27-2024 End: 71-35-6280pykzhfcmtrJGP SCARLETRoman AvailableStart: 09-27-2024 End: 34-29-3920Vtkricv encounter procedureTran Jason [place] Work Phone: noms HealthcareStart: 09-27-2024 End: 91-61-2392Quatmtas preventive med est patient 18-39 yrsTran Jason [place] Work Phone: noms BCP OBComment on above:Second trimester ([facility]); 25 weeks gestation of ([facility]); STD exposure; Well woman exam with routine gynecological exam; Diabetes mellitus screeningStart: 09-26-2024 End: 66-11-1624Izxngvkwq Result EncounterCorey Anitha DO Work Phone: noms External Department UnsolicitedStart: 09-26-2024 End: 29-58-5046Hvuijmazg Result EncounterCorey Anitha DO Work Phone: noms External Department UnsolicitedStart: 08-29-2024 End: 40-42-6992Zzrinb outpatient visit 15 minutesCorey Anitha DO Work Phone: noms BCP OBComment on above:Second trimester ; 20 weeks gestation of pregnancyStart: 08-29-2024 End: 37-55-8648qsbxmmwihzHSKLC FAZIONot AvailableStart: 08-29-2024 End: 80-42-5661oepuwammhiXJXNE FAZIONot AvailableStart: 08-08-2024 End: 49-83-2543Beqxfudey Result EncounterCorey Anitha DO Work Phone: noms External Department UnsolicitedStart: 08-08-2024 End: 82-12-8864Iewndxhzf Result EncounterCorey Anitha DO Work Phone: noms External Department UnsolicitedStart: 08-05-2024 End: 93-44-6618Avtxyedzf Result EncounterCorey Anitha DO Work Phone: noms External Department UnsolicitedStart: 08-05-2024 End: 34-44-3817Thdzfwoym Result EncounterCorey Anitha DO Work Phone: noms External Department UnsolicitedStart: 08-05-2024 End: 47-53-3039Jvzmfv outpatient visit 5 minutesNoms Bcp Ob Anitha NurseNOMS BCP OBComment on above:GA: 93n1wFzzpm: 08-05-2024 End: 32-21-3230qpctpzarfxPNXDY FAZIONot AvailableStart: 05-38-1285upasaiwedj Israel NILLFacility: JailStart: 04-11-2024 End: 82-14-1715sdlyqvlvwkIcnvham R NILLFacility: eMgantart: 04-11-2024 End: 97-30-5632Ozmjaug encounter procedureMichael R NILL [phone]-PisdzNew[facility] [place] Start: 27-31-4953lapflumiolEdhnrdm NILLFacility: Megantart: 02-01-2024 End: 15-29-2023Quqfjgv encounter procedureDarlingstephanie Lock DO Work Phone: noms SWS UCComment on above:Encounter for drug screeningStart: 02-01-2024 End: 29-11-3251rpgabwioyeVWEVE FAZIONot AvailableStart: 01-14-2024 End: 75-29-1928xnjqzbnubqDuycdgw HARWOODFacility:Occupational Health and WellnessStart: 12-31-2023 End: 12-13-1366uttnvfdushFpybrjm HoyFacility: Megantart: 12-31-2023 End: 48-97-1388Ezzborf encounter procedureMichael R NILL [phone]-YueuwRegency Hospital Company [facility] [place] Start: 66-13-7870cuxwqcuzjcCncmtlz NILLFacility:GS BellevueStart: 08-05-2023 End: 27-66-4387Qbzswlsqf Result EncounterAmy Jason MALOU Work Phone: noms External Department UnsolicitedStart: 08-05-2023 End: 65-70-6598Naaiuskdx Result EncounterTran Perez MALOU Work Phone: noms External Department UnsolicitedStart: 05-05-2023 End: 68-35-0888Uiye/qhp telephone evaluation 5-10 minCorey Anitha DO Work Phone: noms BCP OBComment on above:Encounter to discuss test resultsStart: 04-15-2023 End: 86-74-4999Mvxwlnkbs Result EncounterCorey Anitha DO Work Phone: noms External Department UnsolicitedStart: 04-15-2023 End: 17-87-9239Hepsixjae Result EncounterCorey Anitha DO Work Phone: noms External Department UnsolicitedStart: 07-15-2022 End: 98-13-4871zmvzpejxztRJUGUZPC EBERLYFacility:Q6Tvtkg: 02-04-2022 End: 34-10-5910cwciiqeynxIT ROSALVA ANITHA .Facility:B1Qcvyp: 56-45-8165Jlqvrtmft for preprocedural laboratory examinationDR ROSALVA ANITHA .[facility] Start: 10-25-2021 End: 86-09-8671qpnygpyzwiVU ROSALVA ANITHA .Facility:T0Qsjaj: 10-23-2021 End: 34-72-8930dbucqyjwlgGC ROSALVA ANITHA .Facility:R1Zksmp: 10-23-2021 End: 99-75-0128Zhvtczwgv for preprocedural laboratory examinationDR ROSALVA ANITHA .Facility:N9Ugjla: 59-93-9976Njbqeznbf for other preprocedural examinationDR ROSALVA ANITHA .[facility]: 10-17-2021 End: 20-44-1903dzrjsmllfaEO ROSALVA ANITHA .Facility:S7Drekz: 10-17-2021 End: 63-59-1623Mxmbuxqzb for other preprocedural examinationDR ROSALVA ANITHA . Facility:N2Rnulj: 10-09-2021 End: 13-26-8665budugufhmtYD ROSALVA ANITHA .Facility:S8Eqwbr: 10-08-2021 End: 81-11-9254zsssvssywcIL ROSALVA ANITHA .Facility: Procedures DateProcedureProcedure DetailPerforming ClinicianStart: 83-66-5954Zqhnh dip stick/tablet rgnt non-auto w/o micrscpCorey Anitha DO Work Phone: Start: 99-73-4301Fenzf dip stick/tablet rgnt non-auto w/o micrscpCorey Anitha DO Work Phone: Start: 69-47-6364Siovo dip stick/tablet rgnt non-auto w/o micrscpCorey Anitha DO Work Phone: Start: 58-91-5608Nheka dip stick/tablet rgnt non-auto w/o micrscpAmy Jason [place] Work Phone: Start: 93-53-7657CCO CBC WITH AUTO DIFFAmy Jason [place] Work Phone: Start: 24-47-5813XWEBYMAKP VAGINITIS (HTRX)Tran [place] Work Phone: Start: 05-34-2576Recbu dip stick/tablet rgnt non-auto w/o micrscpAmy Jason [place] Work Phone: Start: 80-91-1302SSB,APTIMA HPV,AGE GDLNAmy Jason [place] Work Phone: Start: 76-34-5112NU OB INCOMPLETE ANATOMYCorey Anitha DO Work Phone: Start: 17-46-6204Xbkum dip stick/tablet rgnt non-auto w/o micrscpCorey Anitha DO Work Phone: Start: 58-06-6386EDY DRUG SCREEN RAPID (URINE)Rosalva Anitha DO Work Phone: Start: 40-73-7467OYT CBC WITH AUTO DIFFCorey Anitha DO Work Phone: Start: 30-98-5087GQ PELVIS W/ TRANSVAGINALAmy Jason [place] Work Phone: Start: 91-25-8309JZ PELVIS W/ TRANSVAGINALCorey Anitha DO Work Phone: LaparoscopyMichael NILL Removal of foreign body from footMichael NILL Tonsillectomy and adenoidectomyMichael NILL Plan of Treatment DateCare ActivityDetailAuthorStart: 02-13-2025 End: 89-24-1853dwxvztejxi42/17/2025 10:30 AM EST Visit ANA LUISA [facility] [address] [place] [address] Tran Perez PA [address] [place] [address] NOMChantal VILLANUEVAGYNStart: 12-26-2024 End: 50-39-5047Tambopw encounter dgucvrcey16/29/2025 9:10 AM EDT Routine NOMChantal HOU [address] [place] Khloe Garcia, ALBINO [address] [place] [address] NOMChantal VILLANUEVAGYNStart: 12-21-2024 End: 79-07-3203Tvhkmgk encounter procedureNOMS Rajeev OBGYNComment on above: ArrivedStart: 12-13-2024 End: 80-72-2029YOFVDOE, GROUP B STREP WITH SUSCEPTIBLITYCULTURE, GROUP B STREP WITH SUSCEPTIBLITY Lab Routine Third trimester ([facility]) Expected: 12/13/2024, Expires: 12/13/2025[facility] Work Phone: comment on above:Expected: 12/13/2024, Expires: 12/13/2025Start: 12-13-2024 End: 95-35-0766Xczrjgv encounter eubyteptu19/16/2025 10:00 AM EDT Routine [facility] [address] [place] [address] Rosalva Welsh, DO [address] [place], [place] [id number] [facility] OBGYNStart: 12-01-2024 End: 45-86-7564Prifcgt encounter /04/2025 10:40 AM EDT Routine [facility] [address] [place] [address] Khloe Garcia, [employer] DRIER [address] [place] [address] [facility] OBGYNStart: 25-98-5929Elxygllbm vaccinationEastern Missouri State HospitalStart: 11-17-2024 End: 92-98-6570Yrvklxr encounter dfqeodkfp62/21/2025 11:00 AM EDT Routine [facility] [address] [place] [address] Rosalva Welsh, DO [address] [place], [place] [address] [facility] OBGYNStart: 11-02-2024 End: 04-77-3989Vsjizsz encounter ktisjvtki67/06/2025 10:00 AM EDT Routine NOMChantal HOU [address] [place] [address] Tran Perez PA [address] [place], [place] [address] [facility] OBGYNStart: 11-02-2024 End: 26-78-0085Qpvujhrsoyxy / ancillary services opligwyocd99/06/2025 9:30 AM EDT Ancillary Procedure [facility] [address] [place] [address] [facility] Hospitalue OBGYNStart: 10-20-2024 End: 69-73-0502JI for pregnancyUS OB follow up transabdominal approach Imaging Routine 28 weeks gestation of ([facility]) Expected: 10/20/2024, Expires: 02/20/2025NOMS HealthcareComment on above:Expected: 10/20/2024, Expires: 02/20/2025Start: 10-20-2024 End: 36-23-6677Camzkpr encounter gfezuanub81/24/2025 10:50 AM EDT Routine [facility] [address] [place] [address] Rosalva Welsh DO [address] [place], [place] [address] NOMS BCP OBStart: 09-27-2024 End: 50-70-1578WKZ panel - Blood by Automated countCBC Lab Routine Diabetes mellitus screening Expected: 09/27/2024 (Approximate), Expires: 09/27/2025[facility] HealthcareComment on above:Expected: 09/27/2024 (Approximate), Expires: 09/27/2025Start: 09-27-2024 End: 32-74-8443Ofqnbhoxksq of glucose 1 hour after glucose challenge for glucose tolerance testGlucose tolerance, 1 hour Lab Routine Diabetes mellitus screening Expected: 09/27/2024 (Approximate), Expires: 09/27/2025[facility] HealthcareComment on above:Expected: 09/27/2024 (Approximate), Expires: 09/27/2025Start: 09-27-2024 End: 84-50-9802Ymewbtk encounter logqxzvik63/01/2025 10:30 AM EDT Routine [facility] [address] [place] [address] Tran Perez PA [address] [place], [place] [address] NOMS BCP OBStart: 08-29-2024 End: 39-00-2170Uauxirz encounter rkmuuomit13/02/2025 2:30 PM EDT Routine [facility] [address] [place] [address] Rosalva Welsh DO [address] [place], [place] [address] NOMS BCP OBStart: 08-29-2024 End: 46-51-6486Mtsqxscxkmjh / ancillary services zubitozkkm68/02/2025 1:00 PM EDT Ancillary Procedure [facility] [address] [place] [address] NOMS BCP OBStart: 08-05-2024 End: 55-70-4686DVB/RhABO/Rh Lab Routine Missed menses , unspecified gestational age Expected: 08/05/2024 (Approximate), Expires: 08/05/2025NOMS HealthcareComment on above:Expected: 08/05/2024 (Approximate), Expires: 08/05/2025Start: 08-05-2024 End: 33-09-2160Rmoov fetoprotein, maternalAlpha fetoprotein, maternal Lab Routine , unspecified gestational age Expected: 08/05/2024 (Approximate), Expires: 10/05/2024NOMS HealthcareComment on above:Expected: 08/05/2024 (Approximate), Expires: 10/05/2024Start: 08-05-2024 End: 84-07-9739Ztpxd type and Indirect antibody screen panel - BloodType and screen Lab Routine Missed menses , unspecified gestational age Expected: 08/05/2024 (Approximate), Expires: 08/05/2025[facility] Work Phone: comment on above:Expected: 08/05/2024 (Approximate), Expires: 08/05/2025Start: 08-05-2024 End: 20-03-0248Jngvl of abuse panel - Urine by Screen methodRapid drug screen, urine Lab Routine , unspecified gestational age Encounter for supervision of normal first in first trimester Expected: 08/05/2024 (Approximate), Expires: 08/05/2025[facility] HealthcareComment on above:Expected: 08/05/2024 (Approximate), Expires: 08/05/2025Start: 08-05-2024 End: 97-15-9052QA for pregnancyUS OB 14+ weeks anatomy scan Imaging Routine Screening, , for anatomic survey Expected: 08/05/2024, Expires: 11/05/2024[facility] HealthcareComment on above:Expected: 08/05/2024, Expires: 11/05/2024Start: 05-19-2024 End: 73-24-9657Esvatil encounter zmibbpmhq64/20/2025 3:55 PM EST Office Visit [facility] [address] [place] [address] Rafaela Encarnacion APRN-RIDDLER OPERATOR [address] [place] [address] NOMS SWS DERMStart: 12-15-2023 End: 50-96-5858Gqybhma encounter ldxgamepf29/17/2024 11:00 AM EDT Office Visit [facility] [address] [place] [phone] Rosalva Welsh, DO [address] [place] [address] NOMS BCP OBStart: 58-00-3807Myustwulh vaccination Influenza Vaccine (#1)NOMS HealthcareStart: 05-11-2023 End: 48-07-6200Psanwnp encounter qevwglmjx39/12/2024 4:05 PM EST Office Visit [facility] [address] [place] [address] Rafaela Encarnacion APRN-RIDDLER OPERATOR [address] [place] [address] [facility] DERMStart: 02-47-3104Lxgzjutje vaccinationInfluenza Vaccine (#1)NOM[facility] HealthcareBacteria identified in Urine by CultureUrine culture Microbiology Routine Missed menses Ordered: 08/05/2024[facility] HealthcareComment on above:Ordered: 08/05/2024BC W Auto Differential panel - BloodCBC and differential Lab Routine Missed menses , unspecified gestational age Ordered: 08/05/2024[facility] HealthcareComment on above:Ordered: 08/05/2024HLAMYDIA TRACHOMATIS (GENITO/STI)CHLAMYDIA TRACHOMATIS (GENITO/STI) Lab Routine STD exposure Ordered: 09/27/2024[facility] HealthcareComment on above: Ordered: 09/27/2024HLAMYDIA TRACHOMATIS (GENITO/STI)CHLAMYDIA TRACHOMATIS (GENITO/STI) Lab Routine Chlamydia trachomatis infection Ordered: 10/20/2024[facility] HealthcareComment on above:Ordered: 10/20/2024ytology Cervical or vaginal smear or scraping studyPap Smear Pathology and Cytology Routine Well woman exam with routine gynecological exam Ordered: 09/27/2024[facility] Work Phone: comment on above:Ordered: 09/27/2024Hemoglobin A1c/Hemoglobin.total in BloodHemoglobin A1c Lab Routine Missed menses , unspecified gestational age Ordered: 08/05/2024[facility] HealthcareComment on above: Ordered: 08/05/2024Hepatitis B virus surface Ag [Presence] in Serum or Plasma by ImmunoassayHepatitis B surface antigen Lab Routine Missed menses , unspecified gestational age Ordered: 08/05/2024[facility] HealthcareComment on above: Ordered: 08/05/2024Hepatitis C virus Ab [Presence] in Serum or Plasma by ImmunoassayHepatitis C antibody Lab Routine Missed menses , unspecified gestational age Ordered: 08/05/2024[facility] HealthcareComment on above:Ordered: 08/05/2024HIV-1/HIV-2 antigen/antibody combination immunoassayHIV-1 and HIV-2 antibodies Lab Routine Missed menses , unspecified gestational age Ordered: 08/05/2024[facility] HealthcareComment on above:Ordered: 08/05/2024Neisseria gonorrhoeae DNA [Presence] in Unspecified specimen by BINU with probe detection Neisseria gonorrhea DNA probe, direct Lab Routine STD exposure Ordered: 09/27/2024[facility] HealthcareComment on above:Ordered: 09/27/2024Neisseria gonorrhoeae DNA [Presence] in Unspecified specimen by BINU with probe detection Neisseria gonorrhea DNA probe, direct Lab Routine Chlamydia trachomatis infection Ordered: 10/20/2024[facility]Comment [facility]:Ordered: 10/20/2024 Reagin Ab [Presence] in Serum by RPRRPR Lab Routine Missed menses , unspecified gestational age Ordered: 08/05/2024[facility] HealthcareComment on above: Ordered: 08/05/2024Rubella antibody, IgGRubella antibody, IgG Lab Routine Missed menses , unspecified gestational age Ordered: 08/05/2024[facility] HospitalComment on above:Ordered: 08/05/2024SURESWAB(R) ADVANCED VAGINITIS PLUS, TMASURESWAB(R) ADVANCED VAGINITIS PLUS, TMA Pathology and Cytology Routine STD exposure Ordered: 09/27/2024[facility] HospitalComment on above:Ordered: 09/27/2024SURESWAB(R) ADVANCED VAGINITIS PLUS, TMASURESWAB(R) ADVANCED VAGINITIS PLUS, TMA Pathology and Cytology Routine Chlamydia trachomatis infection Ordered: 10/20/2024[facility] Work Phone: comment on above:Ordered: 10/20/2024 Immunizations Immunization DateImmunizationNotesCare TwtvulmmPkeqhtaz55-14-1420PHEM-HzO-8 (COVID-19) mRNAMUL.ORD!d75915Zojbxxc NILL [phone]-UsxvpUniversity Hospitals Samaritan [facility] Center10-13-2022 influenza virus vaccine, unspecified formulationRosalva Anitha DO Work Phone: [facility] HospitalRegnjmegcr61-40-3075NDNZ-OeF-9 (COVID-19) mRNA BNT-162b2 vaxMichael NILL [phone]-Leesv General Surgery BellevueComment on above: Result Comment: 2023-12-25: IGADJ04-24-7819WCUE-IgR-9 (COVID-19) mRNA BNT-162b2 vaxMichael NILL [phone]-Hdtwf General Surgery BellevueComment on above: Result Comment: 2023-12-25: TPVAL Payers DatePayer CategoryPayerPolicy [id number] Health InsuranceBAR[facility]ICA[facility] [id number] [id number] Cross Blue ShieldBCBS [id number] BCBS [id number] 2022-Present [phone] [facility] [id number] [place] [address] [id number] [id number]80241 2.16.840.1.576340.3.579.2.22467-37-8453Kajnefb4728507 2.16.840.1.211347.3.579.2.92833-56-5502Xrbjijh2489875 2.16.840.1.971475.3.579.2.23229-75-7582Ygmpwjs2766610 2.16.840.1.013080.3.579.2.96012-97-8520Epmnzhy1314254 2.16.840.1.637057.3.579.2.69419-06-2161Thrcply13307457 2.16.840.1.994315.3.579.2.94164-24-1840Sfkpgjs46737205 2.16.840.1.889343.3.579.2.99877-55-3155Tispgxy81405219 2.16.840.1.209959.3.579.2.963471-79-9606Gcojrqo24562807 2.16.840.1.394386.3.579.2.717181-62-4135Dkxtrri35142942 2.16.840.1.669432.3.579.2.299611-71-6134Xefwzir21502477 2.16.840.1.185104.3.579.2.121884-88-7790Fjaxqne42921017 2.16.840.1.580036.3.579.2.653549-13-8833Glfayab84135920 2.16.840.1.055797.3.579.2.537044-00-9559Ervbwhw26352331 2.16.840.1.045851.3.579.2.155771-55-2544Ypwfdpp67397676 2.16.840.1.817373.3.579.2.375590-46-6322Egeoobb4517921 2.16.840.1.607962.3.579.2.554516-71-2977Ayolhct4240331 2.16.840.1.065390.3.579.2.453809-57-3853Ouwhrfc7074105 2.16.840.1.159610.3.579.2.653647-83-3773Pnwrxbn5730661 2.16.840.1.270187.3.579.2.067327-71-5085Fhlduiz7440447 2.16.840.1.566784.3.579.2.897923-12-1813Xdcs-wqy80-57-4789ZvjewznXIS481F87672 Tydnrtb3934688 2.16.840.1.517281.3.579.2.593 Social History DateTypeDetailFacilityStart: 09-03-2022 End: 73-35-3889Nlwqjvd smoking status NHISNever smoked tobaccoNOMS Healthcare Start: 00-98-1246Ixxybca use and exposureSmokeless tobacco non-userNOMS HealthcareStart: 04-22-2023 End: 99-84-1419Kjdkuwl intakeLifetime non-drinker (finding)[facility] HealthcareStart: 04-22-2023 End: 52-22-9534Dfortnw of Social functionNOMS HealthcareStart: 04-22-2023 End: 60-49-7083Ukcitce use [facility] 2000 [facility] HealthcareStart: 75-60-1021Yzxqcg identity Identifies as female gender (finding)[facility] HealthcareStart: 77-92-6467Tkxdeu orientationHeterosexual (finding)[facility] HealthcareStart: 93-13-5939Syajtpw smoking statusFormer smokeless tobacco user, quit more than 30 days ago[facility] Hospitaltart: 24-34-6228JqgnhibalWOJY Healthcare Goals DatePatient GoalDesired Activity/StatePersonal health goal Functional Status EvdrWaudtlctwlIxgareUfiqgjjc84-41-1320Nenbzeiwgc StatusN/AFUniversity Hospitals [facility] General Surgery Tkihbyw22-72-6919Qownmvhdev StatusN/[facility] [place] Clinical Notes 10-25-2021 to 12-21-2024 Note Date & XujlKmnaRssjbarr57-82-9061 History of Present illness Narrative* Gina Javan, BRICKMASON HELPER - 12/21/2024 11:10 AM EDT Reason for Appointment: Patient ID: Loyda Adame [...] negaitve TONSILLECTOMY 03/27/2010 WISDOM TOOTH EXTRACTION 01/26/2016 [place] teeth REVIEW OF SYSTEMS Review of Systems: [...] nursing note reviewed. Exam conducted with a hat brusher machine present. Vitals: Estimated body mass index is 29.31 kg/m as calculated from the following: Height as of 08/03/23: 5' 5 . Weight as of 12/13/24: 176 lb 1.9 oz. BP: No LMP recorded (lmp unknown). Patient is . ASSESSMENT & PLAN ICD-10-CM 1. Third trimester ([facility]) Z34.93 POCT urinalysis dipstick manually resulted 2. 37 weeks gestation of ([facility]) Z3A.37 Return OB: Patient presents today for [...] of: Rosalva Welsh DO documented in this encounterEastern Missouri State HospitalXetilhdhak71-96-0739 History of Present illness Narrative* Gina Edouard LPN - 12/13/2024 10:00 AM EDT Reason for Appointment: Patient ID: Loyda Adame [...] negaitve TONSILLECTOMY 03/27/2010 WISDOM TOOTH EXTRACTION 01/26/2016 [place] teeth REVIEW OF SYSTEMS Review of Systems: [...] nursing note reviewed. Exam conducted with a hat brusher machine present. Vitals: Estimated body mass index is 29.31 kg/m as calculated from the following: Height as of 08/03/23: 5' 5 . Weight as of this encounter: 176 lb 1.9 oz. BP: 120/80 No LMP recorded (lmp unknown). Patient is . ASSESSMENT & PLAN ICD-10-CM 1. 36 weeks gestation of ([facility]) Z3A.36 POCT urinalysis dipstick manually resulted 2. Third trimester ([facility]) Z34.93 POCT urinalysis dipstick manually resulted CULTURE, [...] of: Tran Perez PA-C documented in this encounterEastern Missouri State HospitalMnttwzevco81-69-7018 History of Present illness Narrative* Hattie Houser LPN - 12/01/2024 10:40 AM EDT Reason for Appointment: Patient ID: Loyda Adame [...] negaitve TONSILLECTOMY 03/27/2010 WISDOM TOOTH EXTRACTION 01/26/2016 [place] teeth REVIEW OF SYSTEMS Review of Systems: Review of Systems Constitutional: Negative. HENT: Negative. Eyes: Negative. Respiratory: Negative. Cardiovascular: Negative. Gastrointestinal: Negative. Genitourinary: Negative. Musculoskeletal: Negative. Skin: Negative. Neurological: Negative. All other systems reviewed and are negative. Hematological: Negative. Endocrine: Negative. Allergic/Immunologic: Negative. OBJECTIVE Objective: OBGyn Exam Vitals: Estimated body mass index is 28.79 kg/m as calculated from the following: Height as of 24: 5' 5 . Weight as of this encounter: 173 lb. BP: 114/68 No LMP recorded (lmp unknown). Patient is . ASSESSMENT & PLAN ICD-10-CM 1. Third trimester ([facility]) Z34.93 2. 34 weeks gestation of ([facility]) Z3A.34 Patient presents today for a routine obstetrics appointment. Patient is currently 34w2d with a Estimated Date of Delivery: 01/10/25. Patient has no concerns at this time and will return to clinic in 2 weeks for GBS and routine OB appointment. Documented by Hattie Houser LPN on behalf of: Dr. Rosalva Welsh DO documented in this encounterEastern Missouri State HospitalGsllfddzcw24-31-4725 History of Present illness Narrative* Hattie Houser LPN - 11/17/2024 11:00 AM EDT Reason for Appointment: Patient ID: Loyda Adame [...] negaitve TONSILLECTOMY 03/27/2010 WISDOM TOOTH EXTRACTION 01/26/2016 [place] teeth REVIEW OF SYSTEMS Review of Systems: [...] nursing note reviewed. Exam conducted with a hat brusher machine present. Vitals: Estimated body mass index is 28.42 kg/m as calculated from the following: Height as of 08/03/23: 5' 5 . Weight as of this encounter: 170 lb 12.8 oz. BP: 118/76 No LMP recorded (lmp unknown). Patient is . ASSESSMENT & PLAN ICD-10-CM 1. 32 weeks gestation of ([facility]) Z3A.32 POCT urinalysis dipstick manually resulted 2. Third trimester ([facility]) Z34.93 POCT urinalysis dipstick manually resulted Patient presents today for a routine obstetrics appointment. Patient is currently 32w2d with a Estimated Date of Delivery: 01/10/25. Patient to return to clinic in 2 weeks for routine OB appointment. Documented by Hattie Houser LPN on behalf of: Rosalva Welsh DO documented in this encounterEastern Missouri State HospitalWieytvvwqe05-81-3698 History of Present illness Narrative* MALOU Moreno - 11/02/2024 10:00 AM EDT Reason for Appointment: Patient ID: Loyda Adame [...] negaitve TONSILLECTOMY 03/27/2010 WISDOM TOOTH EXTRACTION 01/26/2016 [place] teeth REVIEW OF SYSTEMS Review of Systems: [...] ASSESSMENT & PLAN ICD-10-CM 1. Third trimester ([facility]) Z34.93 POCT urinalysis dipstick manually resulted 2. 30 weeks gestation of ([facility]) Z3A.30 Return OB: Patient presents today [...] behalf of: MALOU Moreno documented in this encounterEastern Missouri State HospitalTjjtsephfb79-78-9729 History of Present illness Narrative* Hattie Houser LPN - 10/20/2024 10:50 AM EDT Reason for Appointment: Patient ID: Loyda Adame [...] negaitve TONSILLECTOMY 03/27/2010 WISDOM TOOTH EXTRACTION 01/26/2016 [place] teeth REVIEW OF SYSTEMS Review of Systems: [...] nursing note reviewed. Exam conducted with a hat brusher machine present. Vitals: Estimated body mass index is 27.22 kg/m as calculated from the following: Height as of 08/03/23: 5' 5 . Weight as of 09/27/24: 163 lb 9.6 oz. BP: No LMP recorded (lmp unknown). Patient is . ASSESSMENT & PLAN ICD-10-CM 1. 28 weeks gestation of ([facility]) Z3A.28 POCT urinalysis dipstick manually resulted 2. Third trimester ([facility]) Z34.93 POCT urinalysis dipstick manually resulted 3. [...] by Hattie Houser LPN on behalf of: Rosalva Welsh DO documented in this encounterEastern Missouri State HospitalOcyzgimzfo39-10-9343 History of Present illness Narrative* MALOU Moreno - 09/27/2024 10:30 AM EDT Reason for Appointment: Patient ID: Loyda Adame [...] Menorrhagia Menstrual irregularity Nonsmoker Protein S deficiency ([facility]) HISTORY PAST MEDICAL HISTORY SOCIAL HISTORY Past [...] negaitve TONSILLECTOMY 03/27/2010 WISDOM TOOTH EXTRACTION 01/26/2016 [place] teeth REVIEW OF SYSTEMS Review of Systems: [...] nursing note reviewed. Exam conducted with a hat brusher machine present. Vitals: Estimated body mass index is 26.21 kg/m as calculated from the following: Height as of 08/03/23: 5' 5 . Weight as of 08/29/24: 157 lb 8 oz. BP: No LMP recorded (lmp unknown). Patient is . ASSESSMENT & PLAN ICD-10-CM 1. Second trimester ([facility]) Z34.92 POCT urinalysis dipstick manually resulted 2. 25 weeks gestation of ([facility]) Z3A.25 3. STD exposure Z20.2 SURESWAB(R) ADVANCED VAGINITIS PLUS, TMA CHLAMYDIA TRACHOMATIS (GENITO/STI) Neisseria gonorrhea DNA probe, direct 4. Well woman exam with routine gynecological exam Z01.419 Pap Smear 5. Diabetes mellitus screening Z13.1 CBC Glucose tolerance, 1 hour CBC Glucose tolerance, 1 hour Return OB/Annual Exam: Patient presents today for a annual exam/routine obstetrics appointment. Patient is currently 04m6emvhlcibs. Patient states she is doing well but [...] behalf of: MALOU Moreno documented in this encounterEastern Missouri State HospitalFczvzexhej24-76-8994 History of Present illness Narrative* Khloe Garcia NP - 08/29/2024 2:30 PM EDT Reason for Appointment: Patient ID: Loyda Adame [...] negaitve TONSILLECTOMY 03/27/2010 WISDOM TOOTH EXTRACTION 01/26/2016 [place] teeth REVIEW OF SYSTEMS Review of Systems: [...] nursing note reviewed. Exam conducted with a hat brusher machine present. Vitals: Estimated body mass index is 26.21 kg/m as calculated from the following: Height as of 24: 5' 5 . Weight as of this [...] of: Rosalva Welsh DO documented in this encounterEastern Missouri State HospitalKopbilzyss84-34-3585 History of Present illness Narrative* Marlene Dunn MA - 08/05/2024 11:00 AM EDT Reason for Appointment: Patient ID: Loyda Adame is a 24 y.o. female who presents for Amenorrhea Patient presents today for a Nurse OB Intake appointment. Patient is 17w3d with a Estimated Date ofDelivery: 01/10/25 OB History Para Term AB Living 1 SAB IAB Ectopic Multiple Live Births # Outcome Date GA Lbr Anselmo/2nd Weight Sex Type Anes PTL Lv 1 Current Current Medications: has a current medication list which includes the following prescription(s): cetirizine, duloxetine,and magnesium oxide. Medical History: Active Ambulatory Problems [...] negaitve TONSILLECTOMY 03/27/2010 WISDOM TOOTH EXTRACTION 01/26/2016 [place] teeth No Known Allergies Vitals: Estimated body [...] drink 6-8 glasses of water a day, eatno raw or undercooked meat, and stay away from [facility]. Patient has also been advised to not change litter boxes and eat 6 small meals a day. Patient has been consulted regarding the do's and don'ts ofpregnancy. Patient was given labs and all questions and concerns were answered. Follow Up: Patient is to return in 4 weeks for routine OB appointment. Patient is to have labs drawn at directed and return to office for initial OB appointment with provider. Patient may call office as needed with any concerns or questions. Nurse Visit Completed by: Marlene Dunn MA documented in this [facility]11-04-2024 History of Present illness Narrative* Darren Jones MA - 02/01/2024 9:35 AM EST Pt presents today for a pre-employment 5 panel drug screen for EPC. Pt verified by photo ID. documented in this [facility]10-03-2024 Evaluation + Plan note Diagnostic Tests Pending * Hepatic Function Panel 12/31/23 [facility] General [facility] [place] 10-03-2024 NoteGeneral Surgery Office/Clinic Note Chief Complaint consultation for cholelithiasis HPI [...] swallowing difficulties, no hearing loss, no ear infection(s),no nose bleeds. Cardiovascular: normal blood pressure, no [...] tenderness, epigastrium and RUQ, no peritoneal signs nomasses, no palpable hernias, diastasis recti no, no [...] Immunizations Vaccine Date Status Comments SARS-CoV-2 (COVID-19) mRNAMUL.ORD![id number] 03/10/2022 Recorded SARS-CoV-2 (COVID-19) mRNA BNT-162b2 vax 09/07/2020 Recorded 2023-12-25: TPVAL SARS-CoV-2 (COVID-19) m (more content not included)...[facility]red HealthcareComment on above:Result Comment: Electronically Signed By: DEJAH ARDON, [place] hO\Date and Time Signed: 12/31/23 09:48 [id number] History of Present illness Narrative* Gina Edouard, ZULEIKA - 05/05/2023 8:10 AM EST Reason for Appointment: Patient ID: Loyda Adame is a 23 y.o. female who presents for Results Patient presents today via telephone call for a telehealth appointment. Patients Phone #: [phone] (mobile) Current Medications: has a current medication list which includes the following prescription(s): bupropion xl, cetirizine, duloxetine, fluocinonide, ibuprofen, ketoconazole, mirtazapine, norgestimate-ethinyl estradiol, phentermine, quetiapine, quetiapine, and vraylar. Medical History: Active Ambulatory Problems Diagnosis Date Noted Pelvic pain in female 04/10/2023 Resolved Ambulatory Problems Diagnosis Date Noted No Resolved Ambulatory Problems Past Medical History: Diagnosis Date Abnormal uterine bleeding (AUB) Anxiety and depression ([facility]) Anxiety disorder DUB (dysfunctional uterine bleeding) Dysmenorrhea Endometriosis Menorrhagia Menstrual irregularity Nonsmoker Protein S deficiency ([facility]) Family History Problem Relation Name [...] negaitve TONSILLECTOMY 03/27/2010 WISDOM TOOTH EXTRACTION 01/26/2016 [place] teeth No Known Allergies Vitals: Estimated body [...] of: Rosalva Welsh DO documented in this encounterEastern Missouri State HospitalEqyytspqik50-59-9435 NoteOPERATIVE NOTE OPERATION DATE: 11/01/2021 PROCEDURE: Diagnostic laparoscopy with chromopertubation. PREOPERATIVE DIAGNOSIS: 1. Pelvic pain. 2. Possible tubal dysfunction. POSTOPERATIVE DIAGNOSIS: 1. Pelvic pain. 2. Possible tubal dysfunction. ANESTHESIA: General. SURGEON: Rosalva Welsh D.O. COMPENSATION AND BENEFITS ADMINISTRATOR: DUC Sherman URINE OUTPUT: Yellow and clear. [...] was taken to Recovery Room in stable conditionThe [facility] HospitalEvaluation note* Diagnosis Encounter to discuss test results Other specified counseling documented in this encounter [facility] HealthcareEvaluation note* Diagnosis Encounter for drug screening documented in this encounter [facility] HealthcareEvaluation note* Diagnosis Missed menses , unspecified gestational age Encounter for supervision of normal first in first trimester Screening, , for anatomic survey Encounter for anatomic survey documented in this encounter [facility]Evaluation note* Diagnosis Second trimester state, incidental [...] note* Diagnosis Third trimester ([facility]) state, incidental 37 weeks gestation of ([facility]) documented in this encounter [facility] HealthcareHospital course Narrative No data available for this section [facility] Hospital Discharge instructions No data available for this section [facility] Progress note No data available for this section [facility] Summary Purpose Family History No Family History [...] and content) DATE CREATED AUTHOR 05/18/2019 [facility] DATE CREATED AUTHOR AUTHOR'S ORGANIZ ATION 07/20/2022 [facility] DATE CREATED AUTHOR AUTHOR'S ORGANIZ ATION 07/24/2024 [facility] DATE CREATED AUTHOR AUTHOR'S ORGANIZ ATION 12/22/2024 [facility] Reason for Visit (unrecogniz ed section and content) ReasonCommentsResultsReasonCommentsAmenorrheaReasonCommentsRoutine Visit Care Teams (unrecognized sec tion and content) Team MemberRelationshipSpecialtyStart DateEnd Date Shaw Jorgensen MD [address] [place] [address] PCP - Generalmily Medicine09/03/22Te MemberRelationshipSpecialtyStart DateEnd Date Shaw Jorgensen MD [address] [place] [address] PCP - GeneralFamily Medicine09/03/22Team MemberRelationshipSpecialtyStart DateEnd Date Shaw Jorgensen MD [address] [place] [address] PCP - GeneralFamily Medicine09/03/22Team MemberRelationshipSpecialtyStart DateEnd Date Shaw Jorgensen MD [address] [place] [address] PCP - GeneralFamily Medicine09/03/22Team MemberRelationshipSpecialtyStart DateEnd Date Shaw Jorgensen MD [address] [place] [address] PCP - GeneralFamily Medicine09/03/22Team MemberRelationshipSpecialtyStart DateEnd Date Shaw Jorgensen MD [address] [facility] [place] [address] PCP - [facility]09/03/22Te MemberRelationshipSpecialtyStart DateEnd Date Shaw Jorgensen MD [address] [facility] [place] [address] PCP - [facility]09/03/22Te MemberRelationshipSpecialtyStart DateEnd Date Shaw Jorgensen MD [address] [place] [facility] [place] [address] PCP - [facility]09/03/22Te MemberRelationshipSpecialtyStart DateEnd Date Shaw Jorgensen MD [address] [facility] [place] [address] PCP - [facility]09/03/22Te MemberRelationshipSpecialtyStart DateEnd Date Shaw Jorgensen MD [address] [facility] [place] [address] PCP - [facility]09/03/22Te MemberRelationshipSpecialtyStart DateEnd Date Shaw Jorgensen MD [address] [facility] [place] [address] [facility] - [facility]22 FOR RECORDS PERTAINING TO PATIENTS WHO ARE [...] BE BASED ON THE PRIMARY CLINICAL RECORDS. [employer] [facility]. provides no warranty or guarantee of the accuracy or completeness of information in this document.
--- OUTSIDE RECORDS SUMMARY | 2025-02-26 18:46 | XMS_ITS | Clinical Summary ---
Author Organization [facility] Address [address] [place] [address] [place] [address] Care Team Providers Care Car Dumper Operator Helper Name Role Phone Shaw Jorgensen MD Primary Care Provider [phone] Allergies No known active allergies Medications MedicationSigDispense QuantityRefillsLast FilledStart DateEnd DateStatus cetirizine (ZyrTEC) 10 MG tablet 1 (one) time each day at the same time.Active DULoxetine (Cymbalta) [address] capsule Take 60 mg by mouth in the morning.Active Vit-Fe Fumarate-FA ( VITAMIN PO) Take by mouthActive docusate sodium (Colace) 100 MG capsule TAKE 1 CAPSULE BY MOUTH TWICE A DAY NEEDED FOR ACYFIUFSRPWF31/29/2025Active ferrous sulfate 325 (65 Fe) MG tablet Take 1 tablet by mouth in the morning and 1 tablet before bedtime.01/19/2025 Active hyoscyamine (Levsin) 0.125 MG SL tablet DISSOLVE 1 TO 2 TABS UNDER THE TONGUE EVERY 4 HOURS NEEDED FOR ABDOMINAL PAIN Active Active Problems ProblemNoted DateDiagnosed DatePelvic pain in qlwfpx1204/10/2023 Encounters DateTypeDepartmentCare CjryAncwdwaqews32/17/2025 10:30 AM ESTPostpartum Visit [facility] [address] [place] [address] [place] [address] Tran Gomez PA 6 weeks follow-up ([facility])02/08/20259111Amcbxd08/05/2025Refill [facility] [address] [place] [address] Aden Welsh, 12/29/2024bstract [facility] [address] [place] [address] Marlene Dunn MA 12/24/2024bstract [facility] [address] [place] [address] Aden Welhs, 12/22/20246412Jyfpyw53/24/2025 11:10 AM EDTRoutine [facility] [address] [place] [address] Aden Welsh, Third trimester ([facility]); 37 weeks gestation of ([facility])12/21/2024amboo flowsheet [facility] [address] [place] [address] Aden Welsh, 12/17/20242690Yupvlk89/16/2025 10:00 AM EDTRoutine [facility] [address] [place] [address] Aden Welsh, 36 weeks gestation of ([facility]); Third trimester ([facility])5Bamboo flowsheet [facility] [address] [place] [address] Aden Welsh, 12/08/20241454Wxeytu80/04/2025 10:40 AM EDTRoutine [facility] [address] [place] [address] Khloe Garcia NP Third trimester ([facility]); 34 weeks gestation of ([facility])12/01/2024amboo flowsheet [facility] [address] [place] [address] [place] [address] Khloe Garcia NP 11/30/2024Travelfrom Last 3 Months Family History Medical HistoryRelationNameCommentsAsthmaMotherLorraine HartwickDiabetesMother Beena HartwickEndometriosisMotherLorraine HartwickacuteHeart failureMother Beena HartwickOsteoarthritisMotherLorraine HartwickHeart diseasePaternal GrandmotherMelanomaPaternal GrandmotherAsthmaSisterJanna HiltonRelationName StatusCommentsFatherAliveMaternal GrandfatherDeceasedMaternal GrandmotherAlive MotherLorraine HartwickAlivePaternal GrandfatherDeceasedPaternal Grandmother AliveSisterJanna HiltonAlive Social History Tobacco UseTypesPacks/DayYears UsedDateSmoking Tobacco: NeverSmokeless Tobacco: Never Tobacco Cessation:Counseling Given: Not Answered Alcohol UseStandard Drinks/WeekCommentsNever0 (1 standard drink = 0.6 oz pure alcohol)CommentsNoSex and Gender InformationValueDate RecordedSex Assigned at AcscdZpbmab50/31/2023 8:37 AM EDTLegal WxlWwloun58/15/2023 7:05 PM EDTGender AjxyfsccIrrnjl79/31/2023 8:37 AM EDTSexual OrientationStraight 08/27/2022 8:37 AM EDT Last Filed Vital Signs Vital SignReadingTime TakenCommentsBlood Pijuwbaf835/6002/13/2025 10:52 AM EST Pulse--Temperature--Respiratory Rate--Oxygen Saturation--Inhaled Oxygen Concentration--Vtzfvu80.4 kg (186 lb)02/13/2025 10:52 AM CZSFdomsx650.1 cm (5' 5 )08/03/2023 10:00 AM EDTBody Mass Index30.95008/03/2023 10:00 AM EDT Plan of Treatment DateTypeDepartmentCare Team (Latest Contact Info)Ibytpkrrdxs82/05/2025 8:30 AM EDTProcedure Visit [facility] [address] [place] [address] Aden Welsh, [address] [place], [place] [id number] Health MaintenanceDue DateLast DoneCommentsCOVID-19 Vaccine ( season) 506/01/2021, 08/17/2020Influenza Vaccine (#1)/, 01/20/2019, 2018, Additional history existsPneumococcal Vaccine: Pediatrics (0 to 5 Years) and At-Risk Patients (6 to 64 Years)Aged OutNo longer eligible based on patient's age to complete this topic Goals GoalPatient Goal TypeAssociated ProblemsRecent ProgressPatient-Stated?Author Reminders Care PlanOB RemindersNoOpen Scheduling, Background Procedures Procedure NamePriorityDate/TimeAssociated DiagnosisCommentsPOCT URINALYSIS BUDQRBWRAsgmqym49/24/2025 11:16 AM EDT Third trimester ([facility]) CULTURE, GROUP B STREP WITH QGWVIBIZDUTTLHqtozfi67/16/2025 11:16 AM EDT Third trimester ([facility]) POCT URINALYSIS BSGUZEMBNnfkncu78/16/2025 11:00 AM EDT 36 weeks gestation of ([facility]) Third trimester ([facility]) from Last 3 Months Results * (ABNORMAL) POCT urinalysis dipstick manually resulted (12/21/2024 11:16 AM EDT) Only the most recent of2 resultswithin the time period is included. ComponentValueRef RangeTest MethodAnalysis TimePerformed AtPathologist Signature Color, UAYellowClarity, UAClearGlucose, UANegativeNegative - 2000(110) ++++ mg/dLBilirubin, UANegativeNegative - 4(70) +++ mg/dLKetones, UANegativeNegative - 160(16) ++++ mg/dLSpec Grav, UA1.0151 - 1.03Blood, UAPositiveNegative - 50 Ralf/mcLComment:tracepH, UA6.55 - 9Protein, UANegativeNegative - 2000(20) ++++ mg/dLUrobilinogen, UA0.20.2 - 12 mg/dLLeukocytes, UAPositiveNegative - 500+++ Joce/mcLComment:3+Nitrite, UANegativeNegative - PositiveSpecimen (Source) Anatomical Location / LateralityCollection Method / VolumeCollection Time Received SghcYoqdc49/24/2025 11:16 AM EDT Narrative Authorizing ProviderResult TypeResult StatusCorey Anitha DOPOINT OF CARE TEST ENTER/EDIT ORDERABLESFinal Result * CULTURE, GROUP B STREP WITH SUSCEPTIBLITY (12/13/2024 11:16 AM EDT)Specimen (Source)Anatomical Location / LateralityCollection Method / VolumeCollection TimeReceived JydoDwcf27/16/2025 11:16 AM EDT Narrative Authorizing ProviderResult TypeResult StatusCorey Anitha DOLAB BLOOD ORDERABLES Final ResultPerforming OrganizationAddressCity/State/ZIP CodePhone Number EXTERNAL LAB from Last 3 Months Additional Health Concerns Active ProblemsNoted DateDiagnosed DateOB Ierxsvocj43/24/[address] [address] Care Teams Team MemberRelationshipSpecialtyStart DateEnd Date Shaw Jorgensen MD [address] [place] [address] [facility] - [facility]09/03/22
--- OUTSIDE RECORDS SUMMARY | 2025-02-26 18:46 | XMS_ITS | Clinical Summary ---
Author Organization [facility] Address [facility] [id number] [facility] [place] [address] Care Team Providers Care Customer Sales Specialist Name Role Phone Unavailable Primary Care Provider Unavailabl e Social History Tobacco UseTypesPacks/DayYears UsedDateSmoking Tobacco: Never AssessedChildcare AnswerDate ZlsbxpwfWipnaoapwFyvtslq67/12/2019EmploymentAnswerDate Recorded AlpiegvvqaHqnjvee66/12/2019CommentsUnknownSex and Gender Information ValueDate RecordedSex Assigned at BirthNot on fileLegal RevNpfuev97/05/2015 11:22 AM EDTGender IdentityNot on fileSexual OrientationNot on file Plan of Treatment Not on file Medical Devices Not on file
--- OUTSIDE RECORDS SUMMARY | 2025-02-26 18:46 | XMS_ITS | Clinical Summary ---
Author Organization [facility] Address [address] [place], [place] [id number] Care Team Providers Care Oracle Database Developer Name Role Phone Shaw Jorgensen MD Primary Care Provider [phone] Allergies No known active allergies Medications MedicationSigDispense QuantityRefillsLast FilledStart DateEnd DateStatus norgestimate 0.25 mg-ethinyl estradiol 35 mcg (SPRINTEC) 0.25-35 mg-mcg per tablet Take 1 tablet by mouth once daily.Active Active Problems No known active problems Immunizations ImmunizationAdministration DatesNext DueHaemophilus influenzae b (HbOC) vaccine, 4-dose series (HIBTITER)04/15/2000Haemophilus influenzae b-hepatitis B (Hib- HepB) vaccine (COMVAX)1999,1999,1999diphtheria tetanus pertussis (DTaP) vaccine, unspecified mgpbciepkty27/28/2005,04/15/2000, 1999,1999,1999hepatitis A (HepA) vaccine, 2-dose series, ped/adol (HAVRIX-PEDS, VAQTA-PEDS)07/29/2011,01/28/2011hepatitis B (HepB) vaccine, 3-dose series, age 0 yr - 19 yr (ENGERIX B-PEDS, RECOMBIVAX HB-PEDS) 04/01/2011human papillomavirus (HPV4) vaccine, quadrivalent (GARDASIL)07/29/2011 ,04/01/2011,01/28/2011influenza (IIV3) vaccine, trivalent (AFLURIA, FLULAVAL, FLUVIRIN, FLUZONE)03/05/2010influenza (IIV3) vaccine, trivalent, PF (AFLURIA, FLUARIX, FLULAVAL, FLUVIRIN, FLUZONE)03/03/2017,02/03/2012,01/28/2011influenza (ccIIV4) vaccine, age 6+ mo, quadrivalent, PF (FLUCELVAX)01/20/2019,2018 influenza vaccine, whole virus02/15/2015,02/13/2014,02/15/2013measles mumps rubella (MMR) vaccine (M-M-R II, PRIORIX)06/24/2004,02/28/2000meningococcal (MenACWY-D) vaccine, quadrivalent (MENACTRA)12/27/2015,06/26/2010novel influenza (U2E4-42) vaccine, PF02/03/2009poliovirus (IPV) vaccine, inactivated (IPOL) 06/24/2004,1999,1999,1999tetanus diphtheria pertussis (Tdap) vaccine, age 7+ yr (ADACEL, BOOSTRIX)06/26/2010varicella (DEWAYNE) vaccine (VARIVAX) 06/26/2010,02/28/2000 Family History Medical HistoryRelationCommentsacute endometritisMotherHeart diseasePaternal GrandmotherMelanomaPaternal GrandmotherRelationStatusCommentsMaternal GrandfatherDeceasedMotherPaternal GrandfatherDeceasedPaternal Grandmother Social History Tobacco UseTypesPacks/DayYears UsedDateSmoking Tobacco: NeverSmokeless Tobacco: NeverAlcohol UseStandard Drinks/WeekCommentsNever0 (1 standard drink = 0.6 oz pure alcohol)AUDIT-CAnswerDate RecordedQ1: How often do you have a drink containing alcohol?Never05/17/2019Average Number of DrinksNot on file05/17/2019 Frequency of Binge DrinkingNot on file05/17/2019Area Deprivation IndexAnswerDate RecordedNational Score (1-100), lower number is lower riskNot on file03/06/2020 State Score (1-10), lower number is lower riskNot on file03/06/2020Data from: https://www.neighborhoodatlas.medicine.[employer]/. Last address used for calculationNot on file03/06/2020CommentsNoSex and Gender Information ValueDate RecordedSex Assigned at BirthNot on fileLegal SohUdyqjn76/08/2020 8:27 AM ESTGender IdentityNot on fileSexual OrientationNot on file Last Filed Vital Signs Vital SignReadingTime TakenCommentsBlood Fwfjwghm294/71005/17/2019 10:56 AM EST Relyp558605/17/2019 10:56 AM IUVQiatfymkxme65.8 ??C (98.2 ??F)05/17/2019 10:56 AM ESTRespiratory Ywbb277105/17/2019 10:56 AM ESTOxygen Ioohfgbxpp41%05/17/2019 10:56 AM ESTInhaled Oxygen Concentration--Gods[place]36.8 kg (125 lb 3.2 oz)05/17/2019 10:56 AM FURKugiso630.2 cm (5' 4.25 )05/17/2019 10:56 AM ESTBody Mass Index21.32 05/17/2019 10:56 AM EST Plan of Treatment Health MaintenanceDue DateLast DoneCommentsPeds To Adult Transition Initial Ebvpsiapic46/12/2011Peds To Adult Transition Annual Rtrgkbzfyl87/12/2013nxiety Zziejawxf28/12/2017Depression Bsbkerhgm21/12/2017HIV Epojlsbiu90/12/2017 Hepatitis C Wuzmgwedi25/12/2017Cervical Cancer Rbdpgverd16/12/2020DTaP,Tdap,Td Vaccine (7 - Td or Tdap), 06/24/2004, 04/15/2000, Additional history existsCovid-19 Vaccine ( - season)2024Influenza Vaccine (#1), 2018, 03/03/2017, Additional history exists Hepatitis B JraublgAgcwfzqwb64/03/2012, 1999, 1999, Additional history existsHPV TjgasufHtspadtfd05/01/2012, 04/01/2011, 01/28/2011 Care Teams Team MemberRelationshipSpecialtyStart DateEnd Date Shaw Jorgensen MD [facility] - [facility]
--- OUTSIDE RECORDS SUMMARY | 2025-02-26 18:47 | XMS_ITS | Patient Health Record ---
Author Organization [facility] in [place] Address [address] [place] [address] Care Team Providers Care Furs Salesperson Name Role Phone Usman Jorgensen Primary Care Provider [phone] Jeanine Pablo Unavailable [phone] Allergies No Known Allergies Results Component Value Reference Range Notes COVID-19, Flu A+B IH Reviewed date:08/05/2024 01:06:37 PM Interpretation: Performing Lab: Notes/Report: COVID - FLU A-FLU B-Control+PREG QUANT HCG Reviewed date:05/31/2024 03:52:35 PM Interpretation: Performing Lab: Notes/Report: [facility] ,HCG Vweovgajsucf13945 5-50 0.2-1 WEEK 50-500 1-2 WEEKS 100-5,000 2-3 WEEKS 500-10,000 3-4 WEEKS 1,000-50,000 4-5 WEEKS 10,000-100,000 5-6 WEEKS 15,000-200,000 6-8 WEEKS 10,000-100,000 2-3 MONTHS Performing Lab:see noteML - [facility] LBCBC AUTO DIFF Reviewed date:04/21/2024 05:35:33 PM Interpretation: Performing Lab: Notes/Report: [facility] ,White Blood Count6.14.0-11.0 10 3/uLRed Blood Count4.384.20-5.40 10 6/uL Ylamqtconf39.412.0-16.0 g/jSJndgpixeta58.736.0-48.0 %Mean Corpuscular Ufysop25.6 81.0-99.0 fLMean Corpuscular Grdicohdls40.626.7-34.0 pgMean Corpuscular HGB Conc 33.829.9-35.2 g/dLRed Cell Distribution Width12.811.0-15.0 %Platelet Tvlhq482 150-450 10 3/uLMean Platelet Volume9.89.5-13.5 fLNeutrophils Percent Auto57.0 43.0-75.0 %Lymphocytes Percent Auto29.420.5-60.0 %Monocytes Percent Auto8.51.7- 12.0 %Eosinophils Percent Auto3.40.9-7.0 %Basophils Percent Auto1.50.2-2.0 % Immature Granulocytes Pct Auto0.20.0-0.5 %Neutrophils Absolute Auto3.51.4-6.5 10 3/uLLymphocytes Absolute Auto1.81.2-3.8 10 3/uLMonocytes Absolute Auto0.50.3-0.8 10 3/uLEosinophils Absolute Auto0.20.0-0.7 10 3/uLBasophils Absolute Auto0.10.0- 0.1 10 3/uLImmature Granulocytes Abs Auto0.010.00-0.03 10 3/uLPerforming Lab:see note - [facility] LBPREG QUANT HCG Reviewed date:05/04/2024 12:27:10 PM Interpretation: Performing Lab: Notes/Report: [facility] ,HCG Xefeymwycczp043 5-50 0.2-1 WEEK 50-500 1-2 WEEKS 100-5,000 2-3 WEEKS 500-10,000 3-4 WEEKS 1,000-50,000 4-5 WEEKS 10,000-100,000 5-6 WEEKS 15,000-200,000 6-8 WEEKS 10,000-100,000 2-3 MONTHS Performing Lab:see note - [facility] LBHCG Qualitative* Reviewed date:05/04/2024 07:51:54 AM Interpretation: Performing Lab: Notes/Report: [facility] ,HCG QualitativePOSITIVENEGATIVEPerforming Lab:see [facility] - [facility] LBCBC AUTO DIFF Reviewed date:08/05/2024 01:06:37 PM Interpretation: Performing Lab: Notes/Report: [facility] ,White Blood Count8.14.0-11.0 10 3/uLRed Blood Count3.894.20-5.40 10 6/uL Jelzrfvuvx12.312.0-16.0 g/tRGwrqfywxad24.436.0-48.0 %Mean Corpuscular Lzuzfe90.0 81.0-99.0 fLMean Corpuscular Viwsoglffs44.626.7-34.0 pgMean Corpuscular HGB Conc 34.729.9-35.2 g/dLRed Cell Distribution Width13.811.0-15.0 %Platelet Vspha437 150-450 10 3/uLMean Platelet Volume9.59.5-13.5 fLNeutrophils Percent Auto75.7 43.0-75.0 %Lymphocytes Percent Auto15.520.5-60.0 %Monocytes Percent Auto5.91.7- 12.0 %Eosinophils Percent Auto2.00.9-7.0 %Basophils Percent Auto0.50.2-2.0 % Immature Granulocytes Pct Auto0.40.0-0.5 %Neutrophils Absolute Auto6.11.4-6.5 10 3/uLLymphocytes Absolute Auto1.31.2-3.8 10 3/uLMonocytes Absolute Auto0.50.3-0.8 10 3/uLEosinophils Absolute Auto0.20.0-0.7 10 3/uLBasophils Absolute Auto0.00.0- 0.1 10 3/uLImmature Granulocytes Abs Auto0.030.00-0.03 10 3/uLPerforming Lab:see noteML - [facility] LBGLYCOHEMOGLOBIN A1C Reviewed date:08/07/2024 06:03:37 PM Interpretation: Performing Lab: Notes/Report: [facility] ,Glycohemoglobin A1C4.74.5-6.2 % ADA RECOMMENDED LIMIT 4.0 - 6.0 ADA THERAPEUTIC TARGET < 7.0 ACTION SUGGESTED > 7.0 Estimated Average Tblkmkc65Urrcmgdfkg Lab:see noteML - [facility] LB RUBELLA AB IGG Reviewed date:08/07/2024 06:03:37 PM Interpretation: Performing Lab: Notes/Report: [facility] ,Rubella Antibodies, IgG2.66Immune >0.99 index Non-immune <0.90 Equivocal 0.90 - 0.99 Immune >0.99 Performed at: [address] [id number] [employer]: Fer Turpin PhD, Phone: [phone] Performing Lab:see [facility] LBType and Screen Reviewed date:08/07/2024 06:03:37 PM Interpretation: Performing Lab: Notes/Report: [facility] ,Blood TypeA PositiveAntibody ScreenNEGATIVEHCV Antibody RFX to Quant PCR Reviewed date:08/07/2024 06:03:37 PM Interpretation: Performing Lab: Notes/Report: [facility] ,HCV AbNon ReactiveNon ReactiveInterpretation:Comment. Not infected with HCV unless early or acute infection is suspected (which may be delayed in an immunocompromised individual), or other evidence exists to indicate HCV infection. Performed at: [address] [id number] [employer]: Fer Turpin PhD, Phone: [phone] Performing Lab:see [facility] LBBox Test Reviewed date:08/07/2024 06:03:37 PM Interpretation: Performing Lab: Notes/Report: [facility] ,BOX Test Sent OutUNITYBOX Test Reference LabUNITYBOX Test Date Sent08/05/24 Performing Lab:see note - [facility] LBUS OB incomplete anatomy Reviewed date:09/26/2024 09:11:43 PM Interpretation: Performing Lab: Notes/Report: Source Facility: [place] [address] [place] [address] Ultrasound Report Signed Patient: LOYDA ADAME MR#: [id number] : 2000 Acct:[id number] Age/Sex: 24 / F ADM Date: 09/26/24 Loc: US Attending Dr: Rosalva Welsh D.O. Ordering Physician: Rosalva Welsh D.O. Date of Service: 09/26/24 Procedure(s): US OB incomplete anatomy Accession Number(s): [id number] cc: Rosalva Welsh D.O.; Bharti Jorgensen M.D. [address] [address] Patient Name: LOYDA ADAME MRN: [id number] date: 2000 Sex: F Assigned Patient Location: US Current Patient Location: Accession/Order Number: [id number] Exam Date: 09/26/2024 10:11 Report Date: 09/26/2024 [...] Boyd M.D. 09/26/2024 10:13 AM Dictation Location: [place] [address] Electronically authenticated by: [id number] Y Date: 09/26/2024 10:13 Dictated By: Gina Boyd M.D. Signed By: 09/26/24 1016 DD/ 1013 TD/TT: Salesperson [employer]:Eleazar SCHROEDER HPV,Age Gdln Reviewed date:10/03/2024 08:08:31 PM Interpretation: Performing Lab: Notes/Report: SPATULA-ALONE VAGINA [facility] ,Age Gdln ACOG TestingNote. TESTS RESULT FLAG UNITS REF RANGE LAB Clinician Provided Cytology Information Source.............Vagina No. of containers..01 ThinPrep Vial Age Algo ACOG Lorena... -27 04 FLAG LEGEND: L-Low Normal,H-High Normal,LL-Alert Low,HH-Alert High <-Panic Low,>-Panic High,A-Abnormal,AA-Critical Abnormal Performed at: 01 =G [facility] [address] [facility] [place] [address] Leia Carbajal MD, IGP, rfx Aptima HPV ASCUNote. TESTS RESULT FLAG UNITS REF RANGE LAB DIAGNOSIS: 02 NEGATIVE FOR INTRAEPITHELIAL LESION OR MALIGNANCY. Specimen adequacy: 02 Satisfactory for evaluation. Performed by: Roland Hanson, Rack Maker ([facility]) . 02 Note: Note 03 The [...] High,A-Abnormal,AA-Critical Abnormal Performed at: 02 KWCYT [facility] [place] [address] [address] [place] [address] Carter Hall MD, 03 WB [facility] [address] [address] Leia Carbajal MD, Performed at: =G - [facility] [id number] [employer]: Leia Carbajal MD, Phone: [phone] Performed at: [facility] [address] [address] [place], [place] [id number] [employer]: Carter Hall MD, Phone: [phone] Performing Lab:see noteLC - [facility] LBCBC no Diff (Hemogram) Reviewed date:12/25/2024 09:01:11 PM Interpretation: Performing Lab: Notes/Report: [facility] ,White Blood Count9.74.0-11.0 10 3/uLRed Blood Count3.904.20-5.40 10 6/uL Mgzfglyidu53.212.0-16.0 g/uZZryughtxzr72.836.0-48.0 %Mean Corpuscular Ugekqe63.7 81.0-99.0 fLMean Corpuscular Jpwsczqjjb52.726.7-34.0 pgMean Corpuscular HGB Conc 33.129.9-35.2 g/dLRed Cell Distribution Width13.211.0-15.0 %Platelet Azhor256 150-450 10 3/uLMean Platelet Wtkkke75.79.5-13.5 fLPerforming Lab:see noteML - [facility] LBType and Screen Reviewed date:12/25/2024 09:01:11 PM Interpretation: Performing Lab: Notes/Report: [facility] ,Blood TypeA PositiveAntibody ScreenNEGATIVECBC AUTO DIFF Reviewed date:12/25/2024 09:01:10 PM Interpretation: Performing Lab: Notes/Report: [facility] ,White Blood Count14.24.0-11.0 10 3/uLRed Blood Count3.494.20-5.40 10 6/uL Hemoglobin9.912.0-16.0 g/wEEkjknkdhtg52.336.0-48.0 %Mean Corpuscular Iyadsl17.8 81.0-99.0 fLMean Corpuscular Iygjeendaw63.426.7-34.0 pgMean Corpuscular HGB Conc 32.729.9-35.2 g/dLRed Cell Distribution Width13.211.0-15.0 %Platelet Emrhp431 150-450 10 3/uLMean Platelet Bckrwi13.09.5-13.5 fLNeutrophils Percent Auto79.9 43.0-75.0 %Lymphocytes Percent Auto11.620.5-60.0 %Monocytes Percent Auto7.01.7- 12.0 %Eosinophils Percent Auto0.60.9-7.0 %Basophils Percent Auto0.40.2-2.0 % Immature Granulocytes Pct Auto0.50.0-0.5 %Neutrophils Absolute Auto11.31.4-6.5 10 3/uLLymphocytes Absolute Auto1.71.2-3.8 10 3/uLMonocytes Absolute Auto1.00.3- 0.8 10 3/uLEosinophils Absolute Auto0.10.0-0.7 10 3/uLBasophils Absolute Auto0.1 0.0-0.1 10 3/uLImmature Granulocytes Abs Auto0.070.00-0.03 10 3/uLPerforming Lab:see noteML - [facility] LBCBC AUTO DIFF (Not yet reviewed by provider) Interpretation: Performing Lab: Notes/Report: [facility] ,White Blood Count10.84.0-11.0 10 3/uLRed Blood Count4.734.20-5.40 10 6/uL Fcdogetmip93.812.0-16.0 g/gXVfwialmnjs30.736.0-48.0 %Mean Corpuscular Tlzcuz20.2 81.0-99.0 fLMean Corpuscular Zkwofszkzz80.226.7-34.0 pgMean Corpuscular HGB Conc 33.129.9-35.2 g/dLRed Cell Distribution Width14.011.0-15.0 %Platelet Ejpgx844 150-450 10 3/uLMean Platelet Volume9.29.5-13.5 fLNeutrophils Percent Auto78.4 43.0-75.0 %Lymphocytes Percent Auto13.920.5-60.0 %Monocytes Percent Auto5.11.7- 12.0 %Eosinophils Percent Auto1.80.9-7.0 %Basophils Percent Auto0.60.2-2.0 % Immature Granulocytes Pct Auto0.20.0-0.5 %Neutrophils Absolute Auto8.51.4-6.5 10 3/uLLymphocytes Absolute Auto1.51.2-3.8 10 3/uLMonocytes Absolute Auto0.60.3-0.8 10 3/uLEosinophils Absolute Auto0.20.0-0.7 10 3/uLBasophils Absolute Auto0.10.0- 0.1 10 3/uLImmature Granulocytes Abs Auto0.020.00-0.03 10 3/uLPerforming Lab:see noteML - [facility] LBHCG Qualitative Urine (Not yet reviewed by provider) Interpretation: Performing Lab: Notes/Report: [facility] ,HCG Qualitative Urine*NEGATIVENEGATIVEPerforming Lab:see noteML - [facility] LBStrep Gp B Culture+Rflx Reviewed date:12/18/2024 06:32:20 PM Interpretation: Performing Lab: Notes/Report: [facility] ,Strep Gp B Culture+RflxSee Below For Report Strep Gp B Culture+Rflx Strep Gp B Culture+RflxNegative Strep Gp B Culture+Rflx Strep Gp B Culture+RflxCenters for Disease Control and Prevention (CDC) and Strep Gp B Culture+Rflx Strep Gp B Culture+RflxAmerican Congress of Obstetricians and Gynecologists Strep Gp B Culture+Rflx Strep Gp B Culture+Rflx(ACOG) guidelines for prevention of group B Strep Gp B Culture+Rflx Strep Gp B Culture+Rflxstreptococcal (GBS) disease specify co-collection of Strep Gp B Culture+Rflx Strep Gp B Culture+Rflxa vaginal and rectal swab specimen to maximize Strep Gp B Culture+Rflx Strep Gp B Culture+Rflxsensitivity of GBS detection. Per the CDC and ACOG, Strep Gp B Culture+Rflx Strep Gp B Culture+Rflxswabbing both the lower vagina and rectum Strep Gp B Culture+Rflx Strep Gp B Culture+Rflxsubstantially increases the yield of detection Strep Gp B Culture+Rflx Strep Gp B Culture+Rflxcompared with sampling the vagina alone. Strep Gp B Culture+Rflx Strep Gp B Culture+RflxPenicillin G, ampicillin, or cefazolin are indicated Strep Gp B Culture+Rflx Strep Gp B Culture+Rflxfor intrapartum prophylaxis of GBS Strep Gp B Culture+Rflx Strep Gp B Culture+Rflxcolonization. Reflex susceptibility testing should be Strep Gp B Culture+Rflx Strep Gp B Culture+Rflxperformed prior to use of clindamycin only on GBS Strep Gp B Culture+Rflx Strep Gp B Culture+Rflxisolates from penicillin-allergic women who are Strep Gp B Culture+Rflx Strep Gp B Culture+Rflxconsidered a high risk for anaphylaxis. Treatment with Strep Gp B Culture+Rflx Strep Gp B Culture+Rflxvancomycin without additional testing is warranted if Strep Gp B Culture+Rflx Strep Gp B Culture+Rflxresistance to clindamycin is noted. Strep Gp B Culture+Rflx Strep Gp B Culture+RflxPerformed at: - [facility] [place] Strep Gp B Culture+Rflx Strep Gp B Culture+[address] [place], [place] [id number] Strep Gp B Culture+Rflx Strep Gp B Culture+RflxLab Director: Fer Turpin PhD, Phone: [phone] Strep Gp B Culture+Rflx Performing Lab:see note LC - [facility] LB SEE REPORT - [employer] Supervisor Id information not found for OBX-specific segment producer legend Glucose 1 Hour Reviewed date:10/20/2024 10:11:43 AM Interpretation: Performing Lab: Notes/Report: [facility] ,Glucose 1 Zwki554<130 mg/dLPerforming Lab:see noteML - [facility] LB CBC AUTO DIFF Reviewed date:10/20/2024 09:08:07 AM Interpretation: Performing Lab: Notes/Report: [facility] ,White Blood Count10.04.0-11.0 10 3/uLRed Blood Count3.874.20-5.40 10 6/uL Dycdjnppnl88.212.0-16.0 g/hUTglcszjmit98.736.0-48.0 %Mean Corpuscular Kbehoa59.2 81.0-99.0 fLMean Corpuscular Zhigynqlsc15.526.7-34.0 pgMean Corpuscular HGB Conc 34.229.9-35.2 g/dLRed Cell Distribution Width12.311.0-15.0 %Platelet Joadz059 150-450 10 3/uLMean Platelet Volume9.89.5-13.5 fLNeutrophils Percent Auto71.1 43.0-75.0 %Lymphocytes Percent Auto19.820.5-60.0 %Monocytes Percent Auto6.41.7- 12.0 %Eosinophils Percent Auto1.90.9-7.0 %Basophils Percent Auto0.40.2-2.0 % Immature Granulocytes Pct Auto0.40.0-0.5 %Neutrophils Absolute Auto7.11.4-6.5 10 3/uLLymphocytes Absolute Auto2.01.2-3.8 10 3/uLMonocytes Absolute Auto0.60.3-0.8 10 3/uLEosinophils Absolute Auto0.20.0-0.7 10 3/uLBasophils Absolute Auto0.00.0- 0.1 10 3/uLImmature Granulocytes Abs Auto0.040.00-0.03 10 3/uLPerforming Lab:see noteML - [facility] LBUrine Culture, Routine Reviewed date:08/09/2024 09:15:03 PM Interpretation: Performing Lab: Notes/Report: [facility] ,Urine Culture, RoutineSee Below For Report Urine Culture, Routine Urine Culture, RoutineCulture shows less than 10,000 colony forming units of bacteria per Urine Culture, Routine Urine Culture, Routinemilliliter of urine. This colony count is not generally considered Urine Culture, Routine Urine Culture, Routineto be clinically significant. Urine Culture, Routine Urine Culture, RoutinePerformed at: - [facility] Urine Culture, Routine Urine Culture, [address] [place], [place] [id number] Urine Culture, Routine Urine Culture, RoutineLab Director: Fer Turpin PhD, Phone: [phone] Urine Culture, Routine Performing Lab:see note LC - [facility] LB SEE REPORT - [employer] Supervisor Id information not found for OBX-specific segment producer legend DRUG SCREEN RAPID (URINE) Reviewed date:08/08/2024 08:42:34 PM Interpretation: Performing Lab: Notes/Report: [facility] ,Cannabinoid Screen UrineNEGATIVENEGATIVEPhencyclidine Screen UrineNEGATIVE NEGATIVECocaine Screen UrineNEGATIVENEGATIVEMethamphetamines Screen Urine NEGATIVENEGATIVEOpiate Screen UrineNEGATIVENEGATIVEAmphetamine Screen Urine NEGATIVENEGATIVEBenzodiazepines Screen UrineNEGATIVENEGATIVETricyclic Antidepressant UrineNEGATIVENEGATIVEMethadone Screen UrineNEGATIVENEGATIVE Barbiturates Screen UrineNEGATIVENEGATIVEOxycodone Screen UrineNEGATIVENEGATIVE Buprenorphine Screen UrineNEGATIVENEGATIVE DRUG CLASS TEST SYSTEM CUT-OFF CONCENTRATIONS ARE FOLLOWS: AMP (Amphetamine): 500 ng/mL BAR (Barbiturates): 200 ng/mL BZO (Benzodiazepines): 150 ng/mL BUP (Buprenorphine): 10 ng/mL MILO (Cocaine): 150 ng/mL mAMP (Methamphetamine): 500 ng/mL MTD (Methadone): 200 ng/mL OPI (Opiates): 100 ng/mL OXY (Oxycodone): 100 ng/mL PCP (Phencyclidine): 25 ng/mL THC (Cannabinoids): 50 ng/mL TCA (Trycyclic Antidepressants): 300 ng/mL Performing Lab:see noteML - [facility] LBHBsAg Screen Reviewed date:08/07/2024 06:03:37 PM Interpretation: Performing Lab: Notes/Report: [facility] ,HBsAg ScreenNegativeNegative Performed at: - [facility] [address] [place], [place] [id number] [employer]: Fer Turpin PhD, Phone: [phone] Performing Lab:see note - [facility] LBRapid Plasma Reagin, Quant Reviewed date:08/07/2024 06:03:37 PM Interpretation: Performing Lab: Notes/Report: [facility] ,Rapid Plasma Reagin, QuantNon ReactiveNonRea<1:1 titer Please Note: This test does not meet current guidelines for screening and diagnosis of syphilis. This test is intended for following treatment response in patients being treated for syphilis infection. To screen for syphilis infection, a reflex cascade that includes both RPR and a treponema-specific assay should be utilized, such as Treponema pallidum (Syphilis) Screening [place] (529771) or Rapid Plasma Reagin (RPR) Test With Reflex to Quantitative RPR and Confirmatory Treponema pallidum Antibodies (487024). Performed at: [facility] [address] [id number] [employer]: Fer Turpin PhD, Phone: [phone] Performing Lab:see noteLC - [facility] LBAFP, Serum, Open Spina Bifida Reviewed date:08/08/2024 08:42:34 PM Interpretation: Performing Lab: Notes/Report: N N ULTRASOUND [id number] 3 17 N 1 Y 156 N N N N N White/ [facility] ,ResultsReport.Test Results:*Screen Negative*.Gest. Age on Collection Date17.4. weeksGestat. Age Based OnUltrasound. 16.4 on 08/05/2024 Recalculations are not recommended when gestational dating by LMP and ultrasound are within 10 days. Maternal Age At EDD24.9. yrRaceCaucasian.Prefms768. lbsInsulin Dep DiabetesNo. Multiple GestationNo.AFP Value44.0. ng/mLAFP MoM1.13.OSBR Risk 1 UB6764. InterpretationComment. Interpretation: Screen Negative This result is screen [...] Customer Services to discuss available options. The [employer] [employer] recommends amniocentesis be offered to women age 35 and older. Comment:Comment. Radha Bautista, Ph.D., [facility] Director References: Available Upon Request. Multiples Of Median Cutoffs For AFP Elevations [place] 2.5 Black 2.8 IDD 2.0 Twins 4.5 Abbreviation Definitions IDD - Insulin Dep Diabetes OSBR - Open Spina Bifida Risk For further inquiries contact [facility] at [phone]. This test was developed and its performance characteristics determined by [facility]. It has not been cleared or approved by the Food and Drug Administration. Performed at: [facility] [place], [place] [id number] [employer]: Amado Tinoco [facility], Phone: [phone] Performing Lab:[facility] LBHIV Ab/p24 Ag with Reflex Reviewed date:08/07/2024 06:03:37 PM Interpretation: Performing Lab: Notes/Report: [facility] ,HIV Ab/p24 Ag ScreenNon ReactiveNon Reactive HIV-1/HIV-2 antibodies and HIV-1 p24 antigen were NOT detected. There is no laboratory evidence of HIV infection. HIV Negative Performed at: [address] [id number] [employer]: Fer Turpin PhD, Phone: [phone] Performing Lab:[facility] LBPROF CHEM 8 (BAS METB) Reviewed date:04/21/2024 05:35:33 PM Interpretation: Performing Lab: Notes/Report: [facility] ,Njgszd691980-107 mmol/LPotassium3.83.5-5.1 mmol/ZNciyqagw21944-574 mmol/LCarbon Ypuzlif82.321.0-32.0 mmol/LAnion Gap13.5Hpmyccn2154-781 mg/dLBlood Urea Nitrogen 16.07.0-18.0 mg/dLCreatinine0.870.55-1.02 mg/dLEstimated GFR ( Kourtney>60 >=60 mL/min/1.73m 2Estimated GFR (Non- Patsy>60>=60 mL/min/1.73m 2BUN Creatinine Ratio18.7Mxtxxkr6.58.5-10.1 mg/dLPerforming Lab:see bennie - [facility] LBLIVER PROFILE Reviewed date:04/21/2024 05:35:33 PM Interpretation: Performing Lab: Notes/Report: [facility] ,Bilirubin Total0.40.2-1.0 mg/dLBilirubin Direct0.10.0-0.2 mg/dLAspartate Amino Kbubhrfixcx0697-30 U/LAlanine Aozkemacouvypggr9603-63 U/LAlkaline Skmqvzwuijo81 46-116 U/LTotal Protein6.96.4-8.2 g/dLAlbumin Level3.33.4-5.0 g/dLGlobulin3.6 Albumin Globulin Ratio0.9Performing Lab:see noteML - [facility] LBUS right upper quadrant Reviewed date:03/30/2024 03:20:05 PM Interpretation: Performing Lab: Notes/Report: Source Facility: [place] [address] [place] [address] Ultrasound Report Signed Patient: LOYDA ADAME MR#: [id number] : 2000 Acct:[id number] Age/Sex: 24 / F ADM Date: 03/29/24 Loc: US Attending Dr: Bharti Jorgensen M.D. Ordering Physician: Bharti Jorgensen M.D. Date of Service: 03/29/24 Procedure(s): US right upper quadrant Accession Number(s): [id number] cc: Bharti Jorgensen M.D. [place] [address] Patient Name: LOYDA ADAME MRN: [id number] date: 2000 Sex: F Assigned Patient Location: US Current Patient Location: US Accession/Order Number: [id number] Exam Date: 03/29/2024 06:59 Report Date: 03/29/2024 [...] Foreman M.D. Signed By: 03/29/2447 DD/ TD/TT: Salesperson [employer]:Kody Reviewed date:12/25/2024 09:01:11 PM Interpretation: Performing Lab: Notes/Report: [facility] ,AmnisurePOSITIVENEGATIVEPerforming Lab:see note - [facility] DRUG SCREEN RAPID (URINE) Reviewed date:12/25/2024 09:01:10 PM Interpretation: Performing Lab: Notes/Report: [facility] ,Cannabinoid Screen UrineNEGATIVENEGATIVEPhencyclidine Screen UrineNEGATIVE NEGATIVECocaine Screen UrineNEGATIVENEGATIVEMethamphetamines Screen Urine NEGATIVENEGATIVEOpiate Screen UrineNEGATIVENEGATIVEAmphetamine Screen Urine NEGATIVENEGATIVEBenzodiazepines Screen UrineNEGATIVENEGATIVETricyclic Antidepressant UrineNEGATIVENEGATIVEMethadone Screen UrineNEGATIVENEGATIVE Barbiturates Screen UrineNEGATIVENEGATIVEOxycodone Screen UrineNEGATIVENEGATIVE Buprenorphine Screen UrineNEGATIVENEGATIVE DRUG CLASS TEST SYSTEM CUT-OFF CONCENTRATIONS ARE FOLLOWS: AMP (Amphetamine): 500 ng/mL BAR (Barbiturates): 200 ng/mL BZO (Benzodiazepines): 150 ng/mL BUP (Buprenorphine): 10 ng/mL MILO (Cocaine): 150 ng/mL mAMP (Methamphetamine): 500 ng/mL MTD (Methadone): 200 ng/mL OPI (Opiates): 100 ng/mL OXY (Oxycodone): 100 ng/mL PCP (Phencyclidine): 25 ng/mL THC (Cannabinoids): 50 ng/mL TCA (Trycyclic Antidepressants): 300 ng/mL Performing Lab:see noteML - [facility] LB Reason For Referral Reason gallstone Diagnosis 1 Right upper quadrant abdominal pain (R10.11) Referral Organization [facility] Referring Provider First Name Usman Referring Provider Last Name Jameel Referring Provider [facility] icine Referred Provider Israel Dugan Referred Provider Specialty General Surg chris Referral Priority Routine Medications Medication SIG (Take, Route, Frequency, Duration) Notes Start Date End Date Status QUEtiapine Fumarate 50 MG TAKE 1 TABLETS BY MOUT H EVERY DAY; Duration: 90 days ActiverOPINIRole HCl 5 MGTAKE 1 TABLET BY MOUTH EVERY DAY AT BEDTIME; Duration: 90ActiveOndansetron 4 MG1 tablet on the tongue and allow to dissolve Orally Once a day; Duration: 30 days4ActiveProtonix 40 MG1 tablet Orally Once a day; Duration: 30 days4ActiveHyoscyamine Sulfate 0.125 MG1-2 tabs SL SL every 4 hrs PRN abd pain4ActiveAzelastine HCl 0.05 %1 drop into affected eye Ophthalmic qd5ActiveCetirizine HCl 10 MGTAKE 1 TABLET BY MOUTH EVERY DAY; Duration: 90ActiveDULoxetine HCl 60 MGTAKE 2 CAPSULE BY MOUTH EVERY DAY Orally Once a day; Duration: 90 daysActive Social History Tobacco Use: Social History Observation Description Date Details (start date - stop date) Never Smoker NA - NA Tobacco Use/Smoking Question Answer Notes Patient is a nonsmoker Alcohol Screen (Audit-C) Question Answer Notes Did you have a drink containing alcohol in the p ast year? No [id number] (Standard) Question Answer Notes Did you have a drink containing alcohol in the p ast year? Yes How often did you have six or more drinks on one occasion in the past year?Never (0 point)How many drinks did you have on a typical day when you were drinking in the past year?1 or 2 drinks (0 point)How often did you have a drink containing alcohol in the past year?Monthly or less (1 point)[id number] Problems Problem Type SNOMED Code ICD Code Onset Dates Problem Status W/U Status Risk Notes Problem Information temporarily unavaila ble Calculus of gallbladder without cholecystitis without obstruction (K80.20) ActiveconfirmedProblemInformation temporarily unavailableOrthostatic hypotension (I95.1)ActiveconfirmedProblemInformation temporarily unavailableDepression (F32.9)ActiveconfirmedProblemInformation temporarily unavailableADD (attention deficit disorder) (F90.0)ActiveconfirmedProblemInformation temporarily unavailableInsomnia (G47.00)ActiveconfirmedProblemInformation temporarily unavailableHair loss (L65.9)ActiveconfirmedProblemInformation temporarily unavailableScoliosis (M41.9)ActiveconfirmedProblemInformation temporarily unavailableRight upper quadrant abdominal pain (R10.11)ActiveconfirmedProblem Information temporarily unavailableOver weight (E66.3)ActiveconfirmedProblem Information temporarily unavailableAllergic rhinitis, seasonal (J30.2)Active confirmedProblemInformation temporarily unavailableMenometrorrhagia (N92.1) ActiveconfirmedProblemInformation temporarily unavailableVertigo, peripheral (H81.399)ActiveconfirmedProblemInformation temporarily unavailableCOVID-19 (U07.1)Activeconfirmed Vital Signs Temperature 98.1 degrees Fahrenheit 05/31/2024 Blood pressure kelwhyzwh35 mm Hg05/31/20241215Ykywlz16 in05/31/2024lood pressure nnabiovq899 mm Hg05/31/20247178Qhxbwl345 lbs05/31/2024BMI26.79 kg/m205/31/2024 Encounters Encounter Location Date Provider Diagnosis [facility] [address] [place] [address] 05/04/2024 Usman manuel [facility] [place] [address] 05/31/2024[facility] [place] [address]/03/[facility] [place] [address]/oug HoyRight upper quadrant abdominal pain R10.11[place] [address] [place] [address]Pamaxine Shay R05.9 ; URI (upper respiratory infection) J06.9 and Z33.1 Assessments Encounter Date Diagnosis (ICD Code) Assessment Notes Treatment Notes Treatment Clinical Notes Section Notes 03/24/2024 Right upper quadrant abdominal p ain (ICD-10 - R10.11) 5Cough (ICD-10 - R05.9)05/31/2024URI (upper respiratory infection) (ICD-10 - J06.9) likely viral supportive care if not improving, worsens fu 05/31/2024Pregnancy (ICD-10 - Z33.1) Plan Of Treatment Pending Test Test Name Order Date CMP (COMPLETE METABOLIC PANEL) HEMOGLOBIN A1C (GLYCO) 12/19/2022 IRON, TOTAL 12/19/2022 CBC WITH DIFF (EXP 01/2025) 12/19/2022 VITAMIN D, 25 LEVEL (TOTAL) 12/19/2022 Sleep study - Diagnostic Polysonogram Insulin Level 12/19/2022 CBC AUTO DIFF 02/26/2025 Covid-19 PCR (CVDTBH) 11/16/2023 US ABD 12/09/2023 US ABD 03/24/2024 THYROID PANEL (T4/TSH/FREE T3) SARS-CoV-2 BINU 10/08/2023 HCG Qualitative Urine 02/26/2025 Insurance Providers Payer Name Payer Address Payer Phone Subscriber Number Group Number Insured Name Patient Relationship to Insured Coverage Start Date Coverage End Date [employer] [place] [employer] [address] [address] [place] [address] [id number] Jefferson Adame - patient is the insured Medical (General) History Medical History History ICD Code Over weight E66.3 Depression F32.9 Allergic rhinitis, seasonal J30.2 Vertigo, peripheral H81.399 COVID-19 U07.1 Orthostatic hypotension I95.1 Menometrorrhagia N92.1 Insomnia G47.00 Scoliosis M41.9 ADD (attention deficit disorder) F90.0 Surgical History Surgery Date(Month/Year) Laproscopy 09/2021
[2025-02-26 18:49] LABS: Alanine Aminotransferase 28 U/L (14-59); Albumin Globulin Ratio 0.9; Albumin Level 3.8 g/dL (3.4-5.0); Alkaline Phosphatase 92 U/L (46-116); Anion Gap 11.0; Aspartate Amino Transferase 20 U/L (15-37); Blood Urea Nitrogen 14.0 mg/dL (7.0-18.0); Calcium 9.2 mg/dL (8.5-10.1); Carbon Dioxide 30.6 mmol/L (21.0-32.0); Chloride 101 mmol/L (98-107); Estimated GFR (African America >60 (>=60 mL/min/1.73m^2); Estimated GFR (Non-African Ame >60 (>=60 mL/min/1.73m^2); Globulin 4.1 g/dL; Glucose 99 mg/dL (74-106); Lipase 47.0 U/L (16.0-77.0); Potassium 3.6 mmol/L (3.5-5.1); Sodium 139 mmol/L (136-145); Total Protein 7.9 g/dL (6.4-8.2)
[2025-02-26] MEDS: HYDROMORPHONE HCL 0.5 MG/0.5 ML SYRINGE IV (19:02)
== END 2025-02-26 20:45 | disposition home or self-care (01) ==
PROVIDERS: Personal Emergency Response Attendant; Emergency Provider Emergency Medicine; PCP Family Medicine
DX: R10.9 Unspecified abdominal pain (principal); K80.70 Calculus of gallbladder and bile duct without cholecystitis without obstruction
CPT/HCPCS: 36415; 74176; 80053; 81001; 83690; 84703; 85025; 96361; 96372; 96374; 96375; 96376; 99285; J1171; J1885; J2405; J3490